=== PATIENT | female | born 1945 | race Caucasian/White ===

== ENCOUNTER 2017-05-17 06:36 | Inpatient (IN) | payer MEDICARE ==
[2017-05-17] VITALS (20 sets, daily range): BP systolic 117–209; BP diastolic 57–93; PULSE 63–100; RESP 14–37; TEMP 93.7–98.8; O2SAT 96–100
[~2017-05-17] VITALS: Ht 157.5 cm; Wt 45.8 kg
[2017-05-17] MEDS ORDERED: MIRT30TA PO (06:41)
[2017-05-17] MEDS ORDERED: HYDR-3133 PO (06:41)
[2017-05-17] MEDS ORDERED: SERT-132 PO (06:41)
[2017-05-17] MEDS ORDERED: PLAQ200T PO (06:41)
[2017-05-17] MEDS ORDERED: COUM5TAB PO (06:43)
[2017-05-17] MEDS ORDERED: ZOLE5P IV (06:43)
[2017-05-17] MEDS ORDERED: ASPI81TA81 (06:43)
[2017-05-17] MEDS ORDERED: MULTTAB24 (06:43)
[2017-05-17] MEDS ORDERED: FERR1TAB52 (06:43)
[2017-05-17] MEDS ORDERED: CHOL1TAB42 (06:43)
[2017-05-17] MEDS ORDERED: NITROGLYCERIN 0.4 MG SL 25 TABS/BTL SL STA (06:45)
[2017-05-17] MEDS ORDERED: ASPIRIN 81 MG CHEW TAB PO STA (06:45)
[2017-05-17] MEDS ORDERED: NITROGLYCERIN-DEXTROSE INJ 250 ML IV SCH (06:45)
[2017-05-17] MEDS ORDERED: SODIUM CHLOR 0.9% 1000 ML INJ 1,000 ML IV ONE (06:45)
[2017-05-17] MEDS ORDERED: HEPARIN-NS/PF INJ 500 ML ONE (06:53)
--- NOTE | 2017-05-17 06:53 | PD ---
HPI Chief Complaint: Chest Pain Time Seen by Provider: 06:44 Travel History International Travel<30 days: No Contact w/Intl Traveler<30days: No Traveled to known affect area: No History of Present Illness HPI The patient is a 71 year old female who presents to the [facility] emergency department with a history of awakening from sound sleep 1 hour prior to arrival with chest pain and shortness of breath. The patient was noted on arrival of ambulance services to have dyspnea with room air saturations of 82%. The patient was noted to have an elevated blood pressure in the 200s systolic. The patient was given one albuterol nebulizer treatment, sublingual nitroglycerin 1, Lasix 40 mg IV. She was placed on CPAP and en route to this facility her O2 saturation came up to 89%. The patient on arrival is unable to communicate due to dyspnea, however she is able to shake her head yes and no and reports that she continues to have shortness of breath on arrival. The patient's other history is obtained from reviewing the electronic medical record and further discussion with the family due to the patient's current medical condition. 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 The patient is status post Vandergrift filter placement. Cardiovascular Problems: Yes Chest Pain: Yes Myocardial Infarction: Yes Past Surgical History Narrative Surgical Patient's past surgical history is significant for a Jae filter placement , right lower extremity stenting 3. Social History Alcohol Use: No Tobacco Use: Yes (one pack per day) Substance Use: No Allergies-Medications (Allergen,Severity, Reaction): Coded Allergies: *MDRO Multi-Drug Resistant Organism (Verified Allergy, Unknown, 05/17/17) MRSA Contrast Media (Verified Allergy, Unknown, 05/17/17) Diflucan (Verified Allergy, Unknown, 05/17/17) Keflex (Verified Allergy, Unknown, 05/17/17) Pravachol (Verified Allergy, Unknown, 05/17/17) Reported Meds & Prescriptions Reported Meds & Active Scripts Active Reported Iron High-Potency (Ferrous Sulfate) 325 Mg Tab Vitamin D-3 (Cholecalciferol) 2,000 Unit Tab Multi For Her (Multiple Vitamins W/ Minerals) 1 Tab Tab Aspir-81 (Aspirin) 81 Mg Tabdr Coumadin (Warfarin) 5 Mg Tab 5 Mg PO DAILY Reclast Inj (Zoledronic Acid) 5 Mg/100 Ml Inj 5 Mg IV Q365D Mirtazapine 30 Mg Tab 30 Mg PO HS Hydroxyzine HCl 25 Mg Tab 25 Mg PO DAILY Sertraline (Sertraline HCl) 50 Mg Tab 50 Mg PO DAILY Plaquenil (Hydroxychloroquine Sulfate) 200 Mg Tab 200 Mg PO DAILY Take with food Review of Systems ROS Limitations: Clinical Condition, Poor Historian Cardiovascular: Positive: Chest Pain or Discomfort, Dyspnea on exertion Respiratory: Positive: Cough, Shortness of Breath Physical Exam Narrative General: The patient is a well-developed cachectic appearing female, short of breath on arrival with accessory muscle use. Head and Neck exam: Head is normocephalic atraumatic. Eyes: Pupils are equal round and reactive to light. Nose: Midline septum with pink mucous membranes Mouth: Dentition unremarkable. Moist mucus membranes. Posterior oropharynx is not erythematous. No tonsillar hypertrophy. Uvula midline. Airway patent. Neck: No palpable lymphadenopathy. No nuchal rigidity. No thyromegaly. Cardiovascular: Tachycardia in the 120s without murmurs, gallops, or rubs. No pulse deficit to the extremities and simultaneous auscultation and palpation of her radial artery. Lungs: Crackles are audible in bilateral lower lung june. The patient has wheezes audible anteriorly bilaterally. The patient has accessory muscle use noted. The patient initially has paroxysmal abdominal breathing noted. Abdomen: Soft, without tenderness to palpation in all 4 quadrants of the abdomen. No guarding, rebound, or rigidity. Normal bowel sounds are audible. No tenderness on palpation of McBurney's point Extremities: No clubbing or cyanosis. The patient has 1+ pitting edema bilateral lower extremities. 2+ pulses in all 4 extremities. The patient on examination has a bandage in place over the left ankle and is noted to have on removal of this an area of chronic ulceration along the medial aspect just above the medial malleolus. The patient additionally is noted to have a wound along the medial aspect of the right thigh. 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 Back: No costovertebral angle tenderness to palpation. Neurologic Exam: The patient is uncooperative with formal neurologic testing due to her dyspnea, however the patient is able to move all extremities with equal strength. The patient has no evidence of facial asymmetry. Skin Exam: No rash noted. The patient's scan is pale appearing on exam. Data Data Last Documented VS Vital Signs Date Time Temp Pulse Resp B/P Pulse Ox O2 Delivery O2 Flow Rate FiO2 05/17/17 07:59 63 20 158/71 100 CPAP 05/17/17 07:38 94.3 05/17/17 06:30 40 Orders Troponin I (05/17/17 06:45) Ckmb (Isoenzyme) Profile (05/17/17 06:45) Complete Blood Count With Diff (05/17/17 06:45) I-Stat Profile (05/17/17 06:45) I-Stat Creatinine (05/17/17 06:45) Calcium (05/17/17 06:45) Magnesium (Mg) (05/17/17 06:45) Prothrombin Time / Inr (Pt) (05/17/17 06:45) Act Partial Throm Time (Ptt) (05/17/17 06:45) B-Type Natriuretic Peptide (05/17/17 06:45) Chest, Single Ap (05/17/17 06:45) Electrocardiogram (05/17/17 06:45) Oxygen Administration (05/17/17 06:45) Iv Access Insert/Monitor (05/17/17 06:45) Oximetry (05/17/17 06:45) Sodium Chlor 0.9% 1000 Ml Inj (Ns 1000 M (05/17/17 06:45) Sodium Chloride 0.9% Flush (Ns Flush) (05/17/17 06:45) Aspirin Chew (Aspirin Chew) (05/17/17 06:45) Nitroglycerin Sl (Nitrostat Sl) (05/17/17 06:45) Nitroglycerin-Dextrose Inj (Nitroglyceri (05/17/17 06:45) Heparin-Ns/Pf Inj (Heparin-Ns/Pf Inj) (05/17/17 06:53) Heparin Inj (Heparin Inj) (05/17/17 06:54) Sodium Chloride 0.9% Flush (Ns Flush) (05/17/17 07:00) Methylprednisolone So Succ Inj (Solumedr (05/17/17 07:00) Albuterol-Ipratropium Neb (Duoneb Neb) (05/17/17 07:00) Type And Screen (05/17/17 06:59) Red Blood Cells (Rbc) (05/17/17 06:59) Blood Product Administration .UPON TRANSFUSION (05/17/17 06:59) Sodium Chlor 0.9% 250 Ml Inj (Ns 250 Ml (05/17/17 07:00) Blood Culture (05/17/17 07:01) Lactic Acid Sepsis Protocol (05/17/17 07:01) Cardiac Catheterization (05/17/17 ) Aztreonam Inj (Azactam Inj) (05/17/17 07:22) Levofloxacin 750 Mg Premix Inj (Levaquin (05/17/17 07:22) Labs Laboratory Tests Test 05/17/17 05/17/17 06:50 07:05 White Blood Count 11.1 TH/MM3 Red Blood Count 2.94 MIL/MM3 Hemoglobin 9.1 GM/DL Bedside Hemoglobin 7.1 G/DL Hematocrit 26.6 % Bedside Hematocrit 21.0 % Mean Corpuscular Volume 90.5 FL Mean Corpuscular Hemoglobin 30.8 PG Mean Corpuscular Hemoglobin 34.0 % Concent Red Cell Distribution Width 14.3 % Platelet Count 473 TH/MM3 Mean Platelet Volume 6.6 FL Neutrophils (%) (Auto) 68.8 % Lymphocytes (%) (Auto) 21.0 % Monocytes (%) (Auto) 6.0 % Eosinophils (%) (Auto) 3.2 % Basophils (%) (Auto) 1.0 % Neutrophils # (Auto) 7.6 TH/MM3 Lymphocytes # (Auto) 2.3 TH/MM3 Monocytes # (Auto) 0.7 TH/MM3 Eosinophils # (Auto) 0.4 TH/MM3 Basophils # (Auto) 0.1 TH/MM3 CBC Comment DIFF FINAL Differential Comment Prothrombin Time 23.9 SEC Prothromb Time International 2.1 RATIO Ratio Activated Partial 44.8 SEC Thromboplast Time Bedside Sodium 135 MMOL/L Bedside Potassium 3.4 MMOL/L Bedside Chloride 103 MMOL/L Bedside Blood Urea Nitrogen 28 MG/DL Bedside Creatinine 1.4 MG/DL Bedside Glucose 227 MG/DL Lactic Acid Level 1.9 mmol/L Calcium Level 8.1 MG/DL Magnesium Level 2.5 MG/DL Total Creatine Kinase 51 U/L Troponin I 0.03 NG/ML B-Type Natriuretic Peptide 708 PG/ML Blood Type AB NEGATIVE MDM Medical Decision Making Medical Screen Exam Complete: Yes Emergency Medical Condition: Yes Medical Record Reviewed: Yes Interpretation(s) Last Impressions Chest X-Ray 05/17/17 0645 Signed Impressions: Service Date/Time: Wednesday, May 17, 2017 06:59 - CONCLUSION: 1. Right lower lobe airspace disease may reflect aspiration or pneumonia in the appropriate clinical setting. 2. Changes of obstructive pulmonary disease. Noah Douglass MD Differential Diagnosis Acute coronary syndrome, versus STEMI, versus new-onset congestive heart failure , versus COPD exacerbation, versus pneumonia, versus symptomatic anemia, versus sepsis Narrative Course During the course of the patients emergency department visit, the patients history, examination, and differential diagnosis were reviewed with the patient. The patient had IV access obtained and blood work sent for analysis. The patient was placed on a monitoring manager with oximetry and blood pressure monitoring. The patient was placed on a monitoring manager with oximetry and blood pressure monitoring. An EKG was done on arrival, respiratory therapy was called immediately to the bedside to place the patient on BiPAP. The patient's initial O2 saturation on CPAP was 88-89%. The patient was placed on BiPAP and her O2 saturations quickly came up to 97-99%. The patient reported feeling improved. An ECG was done which revealed what appeared to be ST segment elevation in lead V2, V3, ST segment depression in V5, V6. A STEMI alert was called. The patient on reevaluation reports that the chest pain has resolved. I -STAT with creatinine was ordered. A chest x-ray was done. The patient was initially provided aspirin 324 mg by mouth 1, nitroglycerin sublingual times one, nitroglycerin drip was started. Heparin was held as the patient is on Coumadin. The patients laboratory studies were reviewed and remarkable for an i-STAT with creatinine that reveals a sodium of 135, potassium 3.4, chloride 103, BUN 28, glucose 227, hemoglobin 7.1, creatinine 1.4. The patient was typed and crossmatched for 4 units of packed red blood cells with 2 units to be placed on hold and 2 units to be administered. Radiology studies were reviewed and remarkable for a chest x-ray that shows a right middle lobe infiltrate, increased haziness bilaterally also suspicious for underlying vascular engorgement. The patient had blood cultures 2 drawn, lactic acid sent for analysis. The patient was started on broad-spectrum antibiotic coverage for suspected sepsis with pulmonary source. The patient was given Azactam and Levaquin. Due to the possibility of aspiration, the patient was also given Flagyl 500 mg IV. The medical center manager, Dr. Lupillo Ramirez reviewed the patient's ECG findings and the patient's history and current symptoms. From reviewing the ECG he felt that the patient had evidence of LV strain and did not require emergent catheterization. The patient's case was checked out to the oncoming emergency physician to disposition based on the conclusion of the patient's workup. I anticipate that the patient will be admitted to the airline manager. Critical Care Narrative Aggregate critical care time was 37 minutes. Time to perform other separately billable procedures was not included in the critical care time. My time did not include minutes spent treating any other patients simultaneously or on activities that did not directly contribute to the patient's treatment. The services I provided to this patient were to treat and/or prevent clinically significant deterioration that could result in: Respiratory failure regarding intubation, versus fluid overload from blood product administration, versus cardiovascular collapse related to sepsis I provided critical care services requiring my management, as noted below: Chart data review, documentation time, medication orders and management, vital sign assessments/reviewing monitor data, ordering and reviewing lab tests, ordering and interpreting/reviewing x-rays and diagnostic studies, care of the patient and discussion of the patient with the admitting physicians. Physician Communication Physician Communication At 6:55 AM I spoke to Dr. Layton. He reports that he is not on for STEMI alerts until after 7 AM for [employer] patients. He reports to me that Dr. Lupillo Ramirez is on-call for STEMI alerts. A call was then placed out to Dr. abad who is on-call for STEMI alerts after 7 AM as it is now after 7 AM. After discussing this further with him, the call suddenly dropped. An attempt was made to call him back and this went to voicemail. A message was left. A call was then placed out to Lupillo Ramirez, the medical center manager on-call for STEMI alerts prior to 7 AM. I discussed the patient's case with him. We reviewed the ECG findings. He explained that the ECG findings were more consistent with LV strain, therefore he did not recommend that the patient go to the catheter lab emergently. Each one of these cardiologists that I spoke to were concerned about the delay in the correct medical center manager being notified of this STEMI alert that was initially called. It was determined that while I was in the room stabilizing the patient's airway and reassessing on BiPAP, the wrong phone number was called by the assembler unit to notify the STEMI alert doctor. Diagnosis Primary Impression: Respiratory distress Additional Impressions: Pneumonia Qualified Code: J18.1 - Pneumonia of right lower lobe due to infectious organism Symptomatic anemia Chest pain Qualified Code: R07.9 - Chest pain, unspecified type Admitting Information Admitting Physician Requests: Admit Stephanie Ramirez MD May 17, 2017 06:53
[2017-05-17] MEDS ORDERED: HEPARIN SODIUM - IV 10,000 UNITS/10 ML VIAL ONE (06:54)
[2017-05-17] MEDS ORDERED: methylPREDNISolone SOD SUCC 125 MG/2 ML VIAL IVP ONE (07:00)
[2017-05-17] MEDS ORDERED: SODIUM CHLORIDE 0.9% FLUSH 10 ML FLUSH IVF PRN (07:00)
[2017-05-17] MEDS ORDERED: SODIUM CHLOR 0.9% 250 ML INJ 250 ML IV ONE (07:00)
[2017-05-17] MEDS: RESP: ALBUTEROL 2.5 MG/IPRATROPIUM 0.5 MG NEB (SCH) INH ×6 (07:16→23:36)
--- NOTE | 2017-05-17 07:21 | RADRPT ---
EXAM DATE/TIME: 05/17/2017 06:59 [facility] COMPARISON: No previous studies available for comparison. INDICATIONS : Stemi alert. MEDICAL HISTORY : Unobtainable SURGICAL HISTORY : Unobtainable ENCOUNTER: Initial ACUITY: 1 day PAIN SCORE: Non-responsive. LOCATION: Bilateral chest FINDINGS: Lungs are hyper aerated with diffuse interstitial prominence, likely chronic. There is mild airspace disease in the right lower lung zone. Cardiac silhouette is borderline in size given degree of expans ion. Old rib fractures are noted bilaterally. CONCLUSION: 1. Right lower lobe airspace disease may reflect aspiration or pneumonia in the appropriate clinical setting. 2. Changes of obstructive pulmonary disease. Noah Douglass MD on May 17, 2017 at 7:17 Board Certified Radiologist. This report was verified electronically.
[2017-05-17] MEDS ORDERED: AZTREONAM INJ 2,000 MG in SODIUM CHLORIDE 0.9% INJ 100 ML IV STA (07:22)
[2017-05-17] MEDS ORDERED: LEVOFLOXACIN 750 MG PREMIX INJ 150 ML IV STA (07:22)
[2017-05-17 07:26] LABS: AUTOMATED NEUTROPHIL # 7.6 TH/MM3 (1.8-7.7); BASOPHIL # 0.1 TH/MM3 (0-0.2); EOSINOPHIL # 0.4 TH/MM3 (0-0.4); EOSINOPHIL % 3.2 % (0.0-4.0); HEMATOCRIT 26.6 % (35.0-46.0); HEMO FLAGS DIFF FINAL; LYMPHOCYTE # 2.3 TH/MM3 (1.0-4.8); MEAN CELL VOLUME 90.5 FL (80.0-100.0); MEAN CORPUSCULAR HEMOGLOBIN 30.8 PG (27.0-34.0); NEUT % 68.8 % (16.0-70.0); PLATELET COUNT 473 TH/MM3 (150-450); RED BLOOD COUNT 2.94 MIL/MM3 (4.00-5.30); RED CELL DISTRIBUTION WIDTH 14.3 % (11.6-17.2); WHITE BLOOD COUNT 11.1 TH/MM3 (4.0-11.0)
[2017-05-17 07:29] LABS: I-STAT POTASSIUM 3.4 MMOL/L (3.5-4.9)
[2017-05-17 07:36] LABS: APTT (PATIENT) 44.8 SEC (24.3-30.1); INTERNATIONAL NORMALIZED RATIO 2.1 RATIO; PROTHROMBIN TIME - PATIENT 23.9 SEC (9.8-11.6)
[2017-05-17 07:46] LABS: MAGNESIUM 2.5 MG/DL (1.5-2.5)
[2017-05-17 08:41] LABS: BLOOD GAS BASE EXCESS -2.6 mmol/L (-2-2); BLOOD GAS CARBOXYHEMOGLOBIN 2.9 % (0-4); BLOOD GAS HCO3 22 mmol/L (22-26); BLOOD GAS METHEMOGLOBIN 0.5 % (0-2); BLOOD GAS O2 HGB SATURATION 96 % (90-100); BLOOD GAS OXYGEN CONTENT 11.6 Vol % (12.0-20.0); BLOOD GAS PCO2 42 mmHg (38-42); BLOOD GAS PO2 121 mmHG (61-120); BLOOD GAS TOTAL HGB 8.5 G/DL (12.0-16.0); TEMP CORR TO 98.6
[2017-05-17 08:42] LABS: CRITICAL VALUE NO; DRAW SITE RT RADIAL; FIO2 40 %; NUMBER OF ARTERIAL PUNCTURES 1; OXYGEN DEVICE VENTILATOR; STAT YES; ULNAR PULSE PRESENT; VENT SETTINGS PEEP5/PS10
[2017-05-17 09:13] LABS: AUTOMATED NEUTROPHIL # 10.4 TH/MM3 (1.8-7.7); BASOPHIL % 0.4 % (0.0-2.0); EOSINOPHIL % 0.3 % (0.0-4.0); HEMO FLAGS DIFF FINAL; LYMPH % 3.8 % (9.0-44.0); LYMPHOCYTE # 0.4 TH/MM3 (1.0-4.8); MEAN CELL VOLUME 89.4 FL (80.0-100.0); MEAN CORPUSCULAR HEMOGLOBIN 31.2 PG (27.0-34.0); MEAN CORPUSCULAR HGB CONC 34.9 % (32.0-36.0); MONO % 5.3 % (0.0-8.0); NEUT % 90.2 % (16.0-70.0); PLATELET COUNT 326 TH/MM3 (150-450); RED BLOOD COUNT 2.57 MIL/MM3 (4.00-5.30); RED CELL DISTRIBUTION WIDTH 14.2 % (11.6-17.2); WHITE BLOOD COUNT 11.5 TH/MM3 (4.0-11.0)
[2017-05-17 09:35] LABS: ANION GAP 11 MEQ/L (5-15); AST (GOT) 22 U/L (15-37); BLOOD UREA NITROGEN 28 MG/DL (7-18); CHLORIDE 100 MEQ/L (98-107); GLOMERULAR FILTRATION RATE 44 ML/MIN (>89); POTASSIUM 3.3 MEQ/L (3.5-5.1); SODIUM (NA) 132 MEQ/L (136-145)
[2017-05-17 09:36] LABS: ALT (GPT) 20 U/L (10-53)
[2017-05-17 09:45] LABS: ALKALINE PHOSPHATASE 91 U/L (45-117); TOTAL BILIRUBIN ADULT 0.1 MG/DL (0.2-1.0)
--- NOTE | 2017-05-17 09:52 | EKG ---
Date Performed: 05/17/2017 Time Performed: 06:38:43 PTAGE: 71 years EKG: POSSIBLE SINUS TACHYCARDIA LEFT AXIS DEVIATION NONSPECIFIC INTRAVENTRICULAR CONDUCTION JAYLON Y LATERAL ST DEPRESSION, CONSIDER ISCHEMIA ABNORMAL ECG NO PREVIOUS TRACING DOCTOR: Severo Thakur Interpretating Date/Time 05/17/2017 09:51:31
[2017-05-17] MEDS ORDERED: POTASSIUM CHLOR 40 MEQ PREMIX 100 ML IV PRN ×2 (10:30)
[2017-05-17] MEDS ORDERED: MAGNESIUM SULFATE INJ 4 GM in SODIUM CHLORIDE 0.9% INJ 92 ML IV PRN (10:30)
[2017-05-17] MEDS ORDERED: CHLORHEXIDINE GLUCONATE 2 % 1 PACK (2 CLOTHS) TOP PRN (10:30)
[2017-05-17] MEDS ORDERED: SENNOSIDES 8.6 MG TAB PO PRN (10:30)
[2017-05-17] MEDS ORDERED: POTASSIUM CHLOR 20 MEQ PREMIX 100 ML IV PRN (10:30)
[2017-05-17] MEDS ORDERED: POTASSIUM PHOSPHATE MONOBASIC 500 MG TAB PO PRN (10:30)
[2017-05-17] MEDS ORDERED: POTASSIUM CHLORIDE 25 MEQ EFFERVESCENT TAB PO PRN (10:30)
[2017-05-17] MEDS ORDERED: POTASSIUM PHOSPHATE INJ 30 MMOL in SODIUM CHLOR 0.9% 250 ML INJ 250 ML IV PRN (10:30)
[2017-05-17] MEDS ORDERED: MAGNESIUM OXIDE 400 MG TAB PO PRN (10:30)
[2017-05-17] MEDS ORDERED: POTASSIUM PHOSPHATE MONOBASIC 500 MG TAB PO/TUBE PRN (10:30)
[2017-05-17] MEDS ORDERED: MAGNESIUM HYDROXIDE SUSP 30 ML CUP PO PRN (10:30)
[2017-05-17] MEDS ORDERED: BISACODYL 10 MG SUPP RECTAL PRN (10:30)
[2017-05-17] MEDS ORDERED: LACTULOSE SYRUP 20 GM/30 ML CUP PO PRN (10:30)
[2017-05-17] MEDS ORDERED: MISCELLANEOUS NURSING INFORMATION XX SCH (10:30)
[2017-05-17] MEDS ORDERED: MAGNESIUM SULFATE INJ 2 GM in SODIUM CHLORIDE 0.9% INJ 96 ML IV PRN (10:30)
[2017-05-17] MEDS ORDERED: RESP: ALBUTEROL 2.5 MG/IPRATROPIUM 0.5 MG NEB (PRN) INH (10:30)
[2017-05-17] MEDS ORDERED: SODIUM PHOSPHATE INJ 30 MMOL in SODIUM CHLOR 0.9% 250 ML INJ 240 ML IV PRN (10:30)
[2017-05-17] MEDS: PANTOPRAZOLE SODIUM 40 MG VIAL IV SCH (10:43)
[2017-05-17] MEDS ORDERED: DEXTROSE 50% IN WATER 50 ML VIAL(D50) IV PRN (10:45)
[2017-05-17] MEDS ORDERED: GLUCAGON 1 MG/ML VIAL OTHER PRN (10:45)
[2017-05-17] MEDS ORDERED: HEPARIN SODIUM - SQ 10,000 UNITS/ML VIAL SQ SCH (11:00)
[2017-05-17] MEDS ORDERED: BUMETANIDE INJ 1 MG/4 ML VIAL IV PUSH ONE (11:30)
--- NOTE | 2017-05-17 11:48 | MB ---
cc: ELKE QUINONEZ MD DATE OF CONSULTATION: 05/17/2017 HISTORY OF PRESENT ILLNESS This is a 71-year-old woman who is admitted to the hospital with acute shortness of breath. She woke up approximately 4 o'clock this morning with some nausea and rather severe shortness of breath. She came to the emergency department. She was placed on a CPAP monitor and given albuterol nebulizer treatment as well as a dose of Lasix and sublingual nitroglycerin. Breathing is much better now. Apparently she was not able to communicate very well on her arrival to the hospital. She has noted a cough with yellow phlegm over the last 2-3 weeks but no fever or chills have been present. She denies any chest pain. No orthopnea or ankle edema. Prior PND has been present. She notes that four or five years ago a slight heart attack was detected by cardiac monitoring but no catheterization or other procedures were done. She does have a history of multiple DVTs and is chronically anticoagulated on Coumadin as well as with a Sarah Ann filter. Her INR was therapeutic at 2.1 on admission. PAST MEDICAL HISTORY The past medical history is otherwise significant for chronic anemia. We do note that on admission hemoglobin was quite low at initially 9.1, but at point of care was 7.1. Subsequently a unit of packed red blood cells is being administered. LABORATORY DATA Pertinent laboratory examination demonstrates a troponin of 0.03 on admission, rising to 0.43 two hours later. Her initial BNP is 708. Chest x-ray reveals a right lower lobe infiltrate with no gross evidence for heart failure. EKG Electrocardiogram demonstrates sinus tachycardia with ST saline with nonspecific ST-segment depression laterally. No ST-segment elevation is present. SOCIAL HISTORY The social history is significant for smoking a pack of cigarettes per day. She is a non-drinker and does not use recreational drugs. ALLERGIES ALLERGIES ARE MULTIPLE TO CONTRAST MEDIA, DIFLUCAN, KEFLEX AND PRAVACHOL. PHYSICAL EXAMINATION GENERAL: On physical exam she is awake and alert. She appears in no acute distress at the present time. VITAL SIGNS: Blood pressure 120/60, pulse 80 and regular. NECK: There is no neck vein distension. LUNGS: Her lungs demonstrate crackles in the right base. No wheezes or rhonchi present. CARDIOVASCULAR: Regular rate and rhythm with no murmur or gallop. ABDOMEN: Soft. There is no tenderness. EXTREMITIES: No edema. ASSESSMENT AND RECOMMENDATIONS The patient has evidence to suggest right lower lobe pneumonia with possible exacerbation of her COPD. There is no evidence for heart failure at this point in time. Certainly her troponin elevation is of concern and I have ordered a follow-up troponin and electrocardiogram for tomorrow, but at this point in time does not appear to be an ischemic event and troponin is likely demand mediated. An echocardiogram has also been ordered and we await with interest the outcome of that. In the time certainly agree with her pulmonary toilet with albuterol and antibiotics. She will need to continue her warfarin in view of her chronic DVTs. MD PUSHPA Thompson/YESSICA /11:27 AM /11:36 AM
[2017-05-17] MEDS: INSULIN NovoLIN REGULAR SUPPLEMENTAL SCALE SQ SCH ×2 (12:00→18:00)
--- NOTE | 2017-05-17 12:22 | EKG ---
Date Performed: 05/17/2017 Time Performed: 06:51:13 PTAGE: 71 years EKG: Sinus rhythm LEFT AXIS DEVIATION NONSPECIFIC INTRAVENTRICULAR CONDUCTION DELAY LATERAL ST/T CHANGES, CONSIDER ISC HEMIA ABNORMAL ECG NO PREVIOUS TRACING DOCTOR: Severo Thakur Interpretating Date/Time 05/17/2017 12:21:37
--- NOTE | 2017-05-17 12:26 | MH ---
cc: SADE WILL M.D. DATE OF ADMISSION 05/17/2017 DATE OF 1945 HISTORY The patient is 71-year-old female with a past medical history of DVT of her right lower extremity on Coumadin, questionable COPD, coronary artery disease, peripheral vascular disease, hypertension, active smoker who presented to [facility] ED with shortness of breath associated with chest pain. The patient had O2 saturation of 82% on room air and systolic blood pressure in the 200s. She was given albuterol treatment along with sublingual nitroglycerin x1, Lasix 40 mg IV push x1 and placed on C-PAP en route to the ED. The patient was given Solu-Medrol 125 mg IV push and initially placed on a nitroglycerin drip. However, now it is turned off. In the ER, she was chest pain-free and a STEMI alert was called and Dr. Ramirez was notified. However, after review, the patient was not a candidate for any cardiac catheterization. Her EKG showed sinus rhythm with a rate of 99 beats per minute and marked left axis deviation with left bundle branch block. The patient was placed on BiPap 10/5 with 40% FIO2 and her ABG showed a pH of 7.35, CO2 42, pAO2 121, bicarb 22 and saturation 96%. Her laboratory data significant for elevated BNP at 708 and troponin increased from 0.03-0.43. Lactic acid level measured at 1.9 and an INR of 2.1 with PT of 44.8. Chest x-ray in the ER showed right lower lobe airspace disease which may reflect aspiration pneumonia. She was given a Aztreonam in the ER. Of note, the patient is ALLERGIC TO KEFLEX. On her initial presentation, she was hypothermic with a temperature of 94.9, however, her last temperature is 98.8. Her WBC was noted to be 11.5. She seems more comfortable and remains on BiPap. The patient denies any emesis, abdominal pain or any constitutional symptoms. PAST MEDICAL HISTORY Significant for likely: 1. COPD 2. Hypertension 3. Coronary artery disease with previous UT in the past 4. History of multiple DVTs on Coumadin 5. Peripheral vascular disease 6. Arthritis 7. Chronic anemia PAST SURGICAL HISTORY 1. Previous right lower extremity stenting x3 2. Previous IVC filter placement. ALLERGIES PRAVACHOL, KEFLEX, DIFLUCAN, CONTRAST MEDIA. MEDICATIONS Reported medications include: 1. Iron 2. Vitamin D3 3. Aspirin 4. Coumadin 5. Sertraline 6. Plaquenil FAMILY HISTORY Noncontributory SOCIAL HISTORY The patient is an active smoker where she smokes one pack per day for many years, nondrinker. REVIEW OF SYSTEMS As per HPI. Rest of the system of systems is unremarkable. PHYSICAL EXAM This is a 71-year-old female lying in bed on BiPap in mild respiratory distress. VITAL SIGNS: Current temperature 98.8. Pulse of 67, blood pressure 112/56, saturation 99%. HEENT: Atraumatic, normocephalic. Pupil equal, round and reactive to light and accommodation. Extraocular muscles intact. Conjunctivae pink. Nonicteric sclerae. Oral mucosa within normal. NECK: Supple. No JVD, adenopathy or thyromegaly. Trachea midline. CARDIOVASCULAR: Regular rate and rhythm. Normal S1-S2. No murmurs, rubs or gallops noted. PULMONARY: Bilateral equal entry with a few coarse breath sounds. ABDOMEN: Soft and nontender, no distension. Positive bowel sounds. EXTREMITIES: No cyanosis, clubbing or edema. NEUROLOGIC: No focal sensory deficit. Awake and alert. LABORATORY DATA WBC 11.5, hemoglobin 8, hematocrit 23, platelet count of 326. Sodium 132, potassium 3.3, chloride 100, CO2 21, BUN 28, creatinine 1.21, glucose of 98, lactic acid 1.9, troponin 0.03 and 0.43 on the second set. ABG showed a pH of 7.35, CO2 42, pAO2 121, bicarb 22, sats 96%, INR 2.1, PT 23.9, PTT 44.8. RADIOGRAPHIC STUDIES Chest x-ray showed right lower lobe airspace disease and changes of obstructive pulmonary disease. IMPRESSION 1. Acute hypoxemic respiratory failure. 2. COPD exacerbation 3. Right lower lobe pneumonia. 4. Uncontrolled hypertension 5. Elevated troponin could be related to respiratory distress, However cannot exclude coronary artery disease. 6. A history of CAD. 7. History of DVT on Coumadin. 8. Peripheral vascular disease 9. Anemia of chronic disease RECOMMENDATIONS 1. Monitor neuro status closely and avoid any sedatives. 2. Continue with oxygen, maintain sats above 92%. 3. Bronchodilators in the form of DuoNeb q4+q2 p.r.n. for shortness of breath. In addition, we will start IV steroids Solu-Medrol 40 mg IV q8. 4. Continue with noninvasive positive pressure ventilation for respiratory distress. 5. Monitor heart rate and blood pressure closely and maintain MAP above 65 mmHg. 6. Monitor troponins and will obtain 2-D echo to evaluate LV function. The patient was given Lasix 40 mg IV en route to the ED. Dr. Ramirez from cardiology service was notified and aware of the patient. 7. Monitor renal function, I's and O's and electrolyte replacement per protocol. The patient will need potassium replacement today. 8. Start p.o. heart healthy diet once respiratory status improves and place on Protonix 40 mg IV daily for GI prophylaxis. 9. Continue with antibiotics in the form of Aztreonam and azithromycin and monitor for signs of infection which include fever and WBC. We will check sputum culture Strep pneumoniae and Legionella urinary antigen. Two sets of blood cultures performed in the ED. 10. Place on sliding scale insulin with Accu-Chek with as the patient will be on IV steroids. 11. Monitor CBC and coag's. We will consult pharmacy service for Coumadin dosing and management. 12. GI prophylaxis with Protonix 4 mg daily and DVT prophylaxis with SCD's. In addition, the patient is on Coumadin with therapeutic INR at 2.1. 13. Further recommendations will be based on hospital course. MD SAVANA Alford/JUNITO /11:42 AM /12:12 PM MTDJohn
[2017-05-17] MEDS: AZTREONAM INJ 1,000 MG in SODIUM CHLORIDE 0.9% INJ 100 ML IV SCH ×2 (12:30→20:09)
[2017-05-17] MEDS: DOCUSATE SODIUM 50 MG/SENNA 8.6 MG TAB PO SCH ×2 (13:14→20:09)
[2017-05-17] MEDS: POTASSIUM CHLOR 20 MEQ PREMIX 100 ML IV PRN ×2 (13:22→15:37)
[2017-05-17 14:34] LABS: HEMATOCRIT 32.7 % (35.0-46.0); REVIEW FLAG FINAL
[2017-05-17] MEDS: methylPREDNISolone SOD SUCC 40 MG/1 ML VIAL IV PUSH SCH ×2 (15:37→20:09)
[2017-05-17] MEDS: AZITHROMYCIN INJ 500 MG in SODIUM CHLOR 0.9% 250 ML INJ 250 ML IV SCH (15:38)
[2017-05-17] MEDS ORDERED: WARFARIN SOD 5 MG TAB PO SCH (16:00)
--- NOTE | 2017-05-17 19:19 | ECHRPT ---
Indication: Shortness of breath CONCLUSIONS Normal left ventricular size. Wall thickness is normal. The left ventricular systolic function is mildly reduced with an estimated ejection fraction in the range of 45- 50%. No regional wall motion abnormalities are present. The right ventriclar size is upper limits of normal. The left atrial size is [id number] dilated. The right atrial size is gxvq-[id number] dilated. Mild mitral valve regurgitation. Mild mitral annular calcification. Aortic valve sclerosis is present. Mild aortic valve regurgitation. No aortic valve stenosis. There is mild tricuspid regurgitation. There is estimated moderate pulmonary hypertension present (range 60-70 mmHg). BP: 117 / 57 HR: 71 Rhythm: Sinus MEASUREMENTS (Male / Female) Normal Values Technical Quality:Fair 2D ECHO LV Diastolic Diameter PLAX 5.2 cm 4.2 - 5.9 / 3.9 - 5.3 cm LV Systolic Diameter PLAX 4.2 cm IVS Diastolic Thickness 0.7 cm 0.6 - 1.0 / 0.6 - 0.9 cm LVPW Diastolic Thickness 0.7 cm 0.6 - 1.0 / 0.6 - 0.9 cm LV Relative Wall Thickness 0.3 LVOT Diameter 2.0 cm Aortic Root Diameter 2.8 cm LA Systolic Diameter LX 3.5 cm 3.0 - 4.0 / 2.7 - 3.8 cm M-MODE AV Cusp Separation MM 1.9 cm DOPPLER AV Peak Velocity 167.0 cm/s AV Peak Gradient 11.2 mmHg AV Mean Gradient 5.0 mmHg AV Velocity Time Integral 33.1 cm AI Peak Velocity 415.0 cm/s AI Peak Gradient 68.9 mmHg AI Pressure Half Time 304.0 ms LVOT Peak Velocity 90.2 cm/s LVOT Peak Gradient 3.3 mmHg LVOT Velocity Time Integral 16.7 cm LVOT Cardiac Index 2810.8 cm/minm AV Area Cont Eq vti 1.6 cm AV Area Cont Eq pk 1.7 cm Mitral E Point Velocity 87.4 cm/s Mitral A Point Velocity 83.9 cm/s Mitral E to A Ratio 1.0 LV E' Septal Velocity 6.3 cm/s Mitral E to LV E' Septal Ratio 13.8 TR Peak Velocity 379.0 cm/s TR Peak Gradient 57.5 mmHg PV Peak Velocity 79.0 cm/s PV Peak Gradient 2.5 mmHg FINDINGS LEFT VENTRICLE Normal left ventricular size. Wall thickness is normal. The left ventricular systolic function is mildly reduced with an estimated ejection fraction in the range of 45- 50%. No regional wall motion abnormalities are present. RIGHT VENTRICLE The right ventriclar size is upper limits of normal. LEFT ATRIUM The left atrial size is [id number] dilated. RIGHT ATRIUM The right atrial size is mvio-mb-jgzyoakmbn dilated. ATRIAL SEPTUM The interatrial septum not well visualized. AORTA The aortic root and proximal ascending aorta are normal in size on limited imaging. MITRAL VALVE Structurally normal mitral valve. Mild mitral valve regurgitation. Mild mitral annular calcification. AORTIC VALVE Aortic valve sclerosis is present. Mild aortic valve regurgitation. No aortic valve stenosis. TRICUSPID VALVE Structurally normal tricuspid valve. There is mild tricuspid regurgitation. There is estimated moderate pulmonary hypertension present (range 60-70 mmHg). VESSELS The inferior vena cava is normal in size. There is greater than 50% respiratory change in dimension of the inferior vena cava (normal). PERICARDIUM No pericardial effusion. Aretha Gonzalez MD, FACC (Electronically Signed) Final Date:17 May 2017 19:18
[2017-05-18] VITALS (31 sets, daily range): BP systolic 126–196; BP diastolic 58–84; PULSE 64–103; RESP 19–50; TEMP 96.7–98.6; O2SAT 97–100
[2017-05-18] MEDS: MIRTAZAPINE 15 MG TAB PO SCH ×2 (01:06→19:45)
[2017-05-18] MEDS: CHLORHEXIDINE GLUCONATE 2 % 1 PACK (2 CLOTHS) TOP SCH (04:00)
[2017-05-18] MEDS: RESP: ALBUTEROL 2.5 MG/IPRATROPIUM 0.5 MG NEB (SCH) INH ×6 (04:00→23:45)
[2017-05-18] MEDS: AZTREONAM INJ 1,000 MG in SODIUM CHLORIDE 0.9% INJ 100 ML IV SCH ×3 (04:43→19:46)
[2017-05-18] MEDS: methylPREDNISolone SOD SUCC 40 MG/1 ML VIAL IV PUSH SCH ×3 (04:43→22:40)
[2017-05-18 04:54] LABS: AUTOMATED NEUTROPHIL # 4.8 TH/MM3 (1.8-7.7); BASOPHIL % 0.5 % (0.0-2.0); HEMATOCRIT 29.8 % (35.0-46.0); HEMO FLAGS DIFF FINAL; LYMPH % 9.3 % (9.0-44.0); LYMPHOCYTE # 0.5 TH/MM3 (1.0-4.8); MEAN CELL VOLUME 87.5 FL (80.0-100.0); MEAN CORPUSCULAR HEMOGLOBIN 30.2 PG (27.0-34.0); MEAN CORPUSCULAR HGB CONC 34.5 % (32.0-36.0); MONO % 3.6 % (0.0-8.0); NEUT % 86.6 % (16.0-70.0); PLATELET COUNT 349 TH/MM3 (150-450); RED BLOOD COUNT 3.41 MIL/MM3 (4.00-5.30); RED CELL DISTRIBUTION WIDTH 15.4 % (11.6-17.2); WHITE BLOOD COUNT 5.6 TH/MM3 (4.0-11.0)
[2017-05-18 05:03] LABS: INTERNATIONAL NORMALIZED RATIO 2.7 RATIO
[2017-05-18 05:08] LABS: BICARBONATE 23.2 MEQ/L (21.0-32.0); MAGNESIUM 2.2 MG/DL (1.5-2.5); POTASSIUM 3.6 MEQ/L (3.5-5.1)
[2017-05-18] MEDS: INSULIN NovoLIN REGULAR SUPPLEMENTAL SCALE SQ SCH ×4 (06:00→18:00)
[2017-05-18] MEDS ORDERED: hydrALAZINE HCL 20 MG/ML VIAL ONE ×2 (06:17→06:23)
--- NOTE | 2017-05-18 07:39 | PD.CARD.PN ---
Subjective Subjective Remarks No chest pain or dyspnea. Off O2 with good O2 sats Objective Vital Signs / I&O Vital Signs Date Time Temp Pulse Resp B/P Pulse Ox O2 Delivery O2 Flow Rate FiO2 05/18/17 06:00 78 05/18/17 04:00 84 05/18/17 04:00 96.7 84 24 196/84 98 05/18/17 02:00 77 05/18/17 00:00 97.8 82 24 169/77 100 05/18/17 00:00 82 05/17/17 22:00 77 05/17/17 20:04 97 21 05/17/17 20:00 98.0 85 37 98 05/17/17 20:00 85 05/17/17 18:00 76 05/17/17 16:00 98.1 79 27 148/68 96 05/17/17 16:00 73 05/17/17 14:00 80 05/17/17 12:00 77 05/17/17 12:00 97.8 77 19 161/70 99 05/17/17 11:19 96 Nasal Cannula 3.00 05/17/17 10:33 100 40 05/17/17 10:15 98.8 05/17/17 10:15 98.8 71 18 117/57 100 BiPAP 05/17/17 09:39 98.2 67 20 122/59 100 CPAP 05/17/17 09:34 98.1 67 20 122/57 99 CPAP 05/17/17 08:33 66 16 123/58 99 BiPAP 40 05/17/17 08:14 95.2 64 14 156/67 100 CPAP 05/17/17 07:59 63 20 158/71 100 CPAP 05/17/17 07:38 94.3 70 16 158/75 100 CPAP I/O 05/17/17 05/17/17 05/17/17 05/18/17 05/18/17 05/18/17 07:00 15:00 23:00 07:00 15:00 23:00 Intake Total 685 ml 778 ml 360 ml Output Total 650 ml 600 ml 700 ml Balance 35 ml 178 ml -340 ml Intake Oral 500 ml 120 ml 120 ml IV Total 185 ml 658 ml 240 ml Output Urine Total 650 ml 600 ml 700 ml Physical Exam Lungs clear RRR Laboratory Laboratory Tests Test 6/21/05/17/17 05/17/17 05/17/17 08:28 08:35 11:20 14:00 Blood Gas Puncture Site RT RADIAL Blood Gas Patient Temperature 98.6 Blood Gas HCO3 22 mmol/L Blood Gas Base Excess -2.6 mmol/L Blood Gas Oxygen Saturation 96 % Arterial Blood pH 7.35 Arterial Blood Partial 42 mmHg Pressure CO2 Arterial Blood Partial 121 mmHG Pressure O2 Arterial Blood Oxygen Content 11.6 Vol % Arterial Blood 2.9 % Carboxyhemoglobin Arterial Blood Methemoglobin 0.5 % Blood Gas Hemoglobin 8.5 G/DL Oxygen Delivery Device VENTILATOR Blood Gas Ventilator Setting PEEP5/PS10 Blood Gas Inspired Oxygen 40 % White Blood Count 11.5 TH/MM3 Red Blood Count 2.57 MIL/MM3 Hemoglobin 8.0 GM/DL Hematocrit 23.0 % Mean Corpuscular Volume 89.4 FL Mean Corpuscular Hemoglobin 31.2 PG Mean Corpuscular Hemoglobin 34.9 % Concent Red Cell Distribution Width 14.2 % Platelet Count 326 TH/MM3 Mean Platelet Volume 6.5 FL Neutrophils (%) (Auto) 90.2 % Lymphocytes (%) (Auto) 3.8 % Monocytes (%) (Auto) 5.3 % Eosinophils (%) (Auto) 0.3 % Basophils (%) (Auto) 0.4 % Neutrophils # (Auto) 10.4 TH/MM3 Lymphocytes # (Auto) 0.4 TH/MM3 Monocytes # (Auto) 0.6 TH/MM3 Eosinophils # (Auto) 0.0 TH/MM3 Basophils # (Auto) 0.0 TH/MM3 CBC Comment DIFF FINAL Differential Comment Sodium Level 132 MEQ/L Potassium Level 3.3 MEQ/L Chloride Level 100 MEQ/L Carbon Dioxide Level 21.0 MEQ/L Anion Gap 11 MEQ/L Blood Urea Nitrogen 28 MG/DL Creatinine 1.21 MG/DL Estimat Glomerular Filtration 44 ML/MIN Rate Random Glucose 98 MG/DL Calcium Level 7.9 MG/DL Phosphorus Level 4.7 MG/DL Total Bilirubin 0.1 MG/DL Aspartate Amino Transf 22 U/L (AST/SGOT) Alanine Aminotransferase 20 U/L (ALT/SGPT) Alkaline Phosphatase 91 U/L Troponin I 0.43 NG/ML 1.05 NG/ML Total Protein 6.0 GM/DL Albumin 2.2 GM/DL Thyroid Stimulating Hormone 2.400 uIU/ML 3rd Gen Nasal Screen MRSA (PCR) MRSA NOT DETECTED Test 6/21/17 6/21/17 6/22/17 14:07 20:14 04:27 Hemoglobin 11.1 GM/DL 10.3 GM/DL Hematocrit 32.7 % 29.8 % Troponin I 1.22 NG/ML 0.95 NG/ML White Blood Count 5.6 TH/MM3 Red Blood Count 3.41 MIL/MM3 Mean Corpuscular Volume 87.5 FL Mean Corpuscular Hemoglobin 30.2 PG Mean Corpuscular Hemoglobin 34.5 % Concent Red Cell Distribution Width 15.4 % Platelet Count 349 TH/MM3 Mean Platelet Volume 6.7 FL Neutrophils (%) (Auto) 86.6 % Lymphocytes (%) (Auto) 9.3 % Monocytes (%) (Auto) 3.6 % Eosinophils (%) (Auto) 0.0 % Basophils (%) (Auto) 0.5 % Neutrophils # (Auto) 4.8 TH/MM3 Lymphocytes # (Auto) 0.5 TH/MM3 Monocytes # (Auto) 0.2 TH/MM3 Eosinophils # (Auto) 0.0 TH/MM3 Basophils # (Auto) 0.0 TH/MM3 CBC Comment DIFF FINAL Differential Comment Prothrombin Time 31.0 SEC Prothromb Time International 2.7 RATIO Ratio Sodium Level 139 MEQ/L Potassium Level 3.6 MEQ/L Chloride Level 104 MEQ/L Carbon Dioxide Level 23.2 MEQ/L Anion Gap 12 MEQ/L Blood Urea Nitrogen 34 MG/DL Creatinine 1.46 MG/DL Estimat Glomerular Filtration 35 ML/MIN Rate Random Glucose 132 MG/DL Calcium Level 8.1 MG/DL Phosphorus Level 4.2 MG/DL Magnesium Level 2.2 MG/DL Assessment and Plan Assessment and Plan Troponin elevated to 1.2 Echo shows mld decrease in EF to 40-45%. Will give Vitamin K today administer fluids to improve creatinine. Consider cath tomorrow Chepe Moody MD May 18, 2017 07:39
[2017-05-18] MEDS: SODIUM CHLOR 0.9% 1000 ML INJ 1,000 ML IV SCH ×2 (07:45→19:40)
[2017-05-18] MEDS ORDERED: PHYTONADIONE 5 MG TAB PO ONE (07:45)
--- NOTE | 2017-05-18 07:48 | HHI.CCPN ---
Subjective Remarks/Hospital Course The patient is 71-year-old female with a past medical history of DVT of her right lower extremity on Coumadin, questionable COPD, coronary artery disease, peripheral vascular disease, hypertension, active smoker who presented to [facility] ED with shortness of breath associated with chest pain. The patient had O2 saturation of 82% on room air and systolic blood pressure in the 200s. She was given albuterol treatment along with sublingual nitroglycerin x1, Lasix 40 mg IV push x1 and placed on C-PAP en route to the ED. The patient was given Solu-Medrol 125 mg IV push and initially placed on a nitroglycerin drip. However, now it is turned off. In the ER, she was chest pain-free and a STEMI alert was called and Dr. Ramirez was notified. However, after review, the patient was not a candidate for any cardiac catheterization. Her EKG showed sinus rhythm with a rate of 99 beats per minute and marked left axis deviation with left bundle branch block. The patient was placed on BiPap 10/5 with 40% FIO2 and her ABG showed a pH of 7.35, CO2 42, pAO2 121, bicarb 22 and saturation 96%. Her laboratory data significant for elevated BNP at 708 and troponin increased from 0.03-0.43. Lactic acid level measured at 1.9 and an INR of 2.1 with PT of 44.8. Chest x-ray in the ER showed right lower lobe airspace disease which may reflect aspiration pneumonia. She was given a Aztreonam in the ER. Of note, the patient is ALLERGIC TO KEFLEX. On her initial presentation, she was hypothermic with a temperature of 94.9, however, her last temperature is 98.8. Her WBC was noted to be 11.5. She seems more comfortable and remains on BiPap. The patient denies any emesis, abdominal pain or any constitutional symptoms. 05/18 Patient is feeling better now off oxygen and is on room air. Trop. is trending down. Seen by cards and for possible cardiac cath tomorrow. Objective Vital Signs Date Time Temp Pulse Resp B/P Pulse Ox O2 Delivery O2 Flow Rate FiO2 05/18/17 06:00 78 05/18/17 04:00 96.7 24 196/84 98 05/17/17 20:04 21 6/21/17 11:19 Nasal Cannula 3.00 Intake and Output 05/17/17 05/17/17 05/18/17 08:00 16:00 00:00 Intake Total 685 ml 778 ml Output Total 650 ml 600 ml Balance 35 ml 178 ml Result Diagram: 05/18/17 0427 05/18/17 0427 Other Results Laboratory Tests Test 05/17/17 05/17/17 05/17/17 05/17/17 08:28 08:35 11:20 14:00 Blood Gas Puncture Site RT RADIAL Blood Gas Patient Temperature 98.6 Blood Gas HCO3 22 mmol/L Blood Gas Base Excess -2.6 mmol/L Blood Gas Oxygen Saturation 96 % Arterial Blood pH 7.35 Arterial Blood Partial 42 mmHg Pressure CO2 Arterial Blood Partial 121 mmHG Pressure O2 Arterial Blood Oxygen Content 11.6 Vol % Arterial Blood 2.9 % Carboxyhemoglobin Arterial Blood Methemoglobin 0.5 % Blood Gas Hemoglobin 8.5 G/DL Oxygen Delivery Device VENTILATOR Blood Gas Ventilator Setting PEEP5/PS10 Blood Gas Inspired Oxygen 40 % White Blood Count 11.5 TH/MM3 Red Blood Count 2.57 MIL/MM3 Hemoglobin 8.0 GM/DL Hematocrit 23.0 % Mean Corpuscular Volume 89.4 FL Mean Corpuscular Hemoglobin 31.2 PG Mean Corpuscular Hemoglobin 34.9 % Concent Red Cell Distribution Width 14.2 % Platelet Count 326 TH/MM3 Mean Platelet Volume 6.5 FL Neutrophils (%) (Auto) 90.2 % Lymphocytes (%) (Auto) 3.8 % Monocytes (%) (Auto) 5.3 % Eosinophils (%) (Auto) 0.3 % Basophils (%) (Auto) 0.4 % Neutrophils # (Auto) 10.4 TH/MM3 Lymphocytes # (Auto) 0.4 TH/MM3 Monocytes # (Auto) 0.6 TH/MM3 Eosinophils # (Auto) 0.0 TH/MM3 Basophils # (Auto) 0.0 TH/MM3 CBC Comment DIFF FINAL Differential Comment Sodium Level 132 MEQ/L Potassium Level 3.3 MEQ/L Chloride Level 100 MEQ/L Carbon Dioxide Level 21.0 MEQ/L Anion Gap 11 MEQ/L Blood Urea Nitrogen 28 MG/DL Creatinine 1.21 MG/DL Estimat Glomerular Filtration 44 ML/MIN Rate Random Glucose 98 MG/DL Calcium Level 7.9 MG/DL Phosphorus Level 4.7 MG/DL Total Bilirubin 0.1 MG/DL Aspartate Amino Transf 22 U/L (AST/SGOT) Alanine Aminotransferase 20 U/L (ALT/SGPT) Alkaline Phosphatase 91 U/L Troponin I 0.43 NG/ML 1.05 NG/ML Total Protein 6.0 GM/DL Albumin 2.2 GM/DL Thyroid Stimulating Hormone 2.400 uIU/ML 3rd Gen Nasal Screen MRSA (PCR) MRSA NOT DETECTED Test 05/17/17 05/17/17 05/18/17 14:07 20:14 04:27 Hemoglobin 11.1 GM/DL 10.3 GM/DL Hematocrit 32.7 % 29.8 % Troponin I 1.22 NG/ML 0.95 NG/ML White Blood Count 5.6 TH/MM3 Red Blood Count 3.41 MIL/MM3 Mean Corpuscular Volume 87.5 FL Mean Corpuscular Hemoglobin 30.2 PG Mean Corpuscular Hemoglobin 34.5 % Concent Red Cell Distribution Width 15.4 % Platelet Count 349 TH/MM3 Mean Platelet Volume 6.7 FL Neutrophils (%) (Auto) 86.6 % Lymphocytes (%) (Auto) 9.3 % Monocytes (%) (Auto) 3.6 % Eosinophils (%) (Auto) 0.0 % Basophils (%) (Auto) 0.5 % Neutrophils # (Auto) 4.8 TH/MM3 Lymphocytes # (Auto) 0.5 TH/MM3 Monocytes # (Auto) 0.2 TH/MM3 Eosinophils # (Auto) 0.0 TH/MM3 Basophils # (Auto) 0.0 TH/MM3 CBC Comment DIFF FINAL Differential Comment Prothrombin Time 31.0 SEC Prothromb Time International 2.7 RATIO Ratio Sodium Level 139 MEQ/L Potassium Level 3.6 MEQ/L Chloride Level 104 MEQ/L Carbon Dioxide Level 23.2 MEQ/L Anion Gap 12 MEQ/L Blood Urea Nitrogen 34 MG/DL Creatinine 1.46 MG/DL Estimat Glomerular Filtration 35 ML/MIN Rate Random Glucose 132 MG/DL Calcium Level 8.1 MG/DL Phosphorus Level 4.2 MG/DL Magnesium Level 2.2 MG/DL Imaging Last Impressions Lower Extremity Ultrasound 05/18/17 0000 Signed Impressions: Service Date/Time: April 08:49 - CONCLUSION: 1. Occlusive and nonocclusive deep venous thrombosis in the right superficial femoral vein and right popliteal vein. Negative left lower extremity. Manjit Layton MD Chest X-Ray 05/18/17 0000 Signed Impressions: Service Date/Time: , May 18, 2017 08:19 - CONCLUSION: 1. Slight improvement in bilateral airspace disease and edema since May 17. Small effusions remain. Borderline cardiomegaly. Manjit Layton MD Objective Remarks GENERAL: Patient is 71 yo lying in bed in no resp distress. SKIN: Warm and dry. HEAD: Normocephalic. EYES: No scleral icterus. No injection or drainage. NECK: Supple, trachea midline. No JVD or lymphadenopathy. CARDIOVASCULAR: Regular rate and rhythm without murmurs, gallops, or rubs. RESPIRATORY: Breath sounds equal bilaterally. No accessory muscle use. GASTROINTESTINAL: Abdomen soft, non-tender, nondistended. MUSCULOSKELETAL: No cyanosis, or edema. Neuro: Awake and alert A/P Assessment and Plan 1. Resp Insuff- improved 2. COPD exacerbation 3. Right lower lobe pneumonia. 4. Hypertension 5. Elevated troponin could be related to respiratory distress, However cannot exclude CAD 6. History of CAD. 7. History of DVT on Coumadin. 8. Peripheral vascular disease 9. Anemia of chronic disease Plan Neuro: Monitor neuro status closely and avoid any sedatives. Plan: oxygen PRN maintain sats above 92%. Bronchodilators , Solu-Medrol 40 mg IV q8. Check CXR NIPPV PRN for respiratory distress. CV: Place on Lopressor 50mg Q12. Monitor HR and BP and maintain MAP > 65 mmHg. Echo showed EF 45-50%, no RWMA, mod pulm HTN PAP 60-70 mmHg Cards- Dr. Moody. For possible cardiac cath tomorrow. On ASA 81mg daily : Monitor renal function, I's and O's and electrolyte replacement per protocol. Placed on NS@84ml/hr GI: on Protonix 40 mg IV daily for GI prophylaxis. On PO diet ID: Continue with abx( Aztreonam and azithromycin)monitor for signs of infection (fever and WBC) check sputum culture, Strep pneumoniae and Legionella urinary antigen. 05/17 BC : NGTD Endo: SSI with Accu-Chek for glycemic control. Heme: Monitor CBC and coag's. GI prophylaxis with Protonix 4 mg daily and DVT prophylaxis with SCD's./ Coumadin - INR 2.7 today 05/18 Doppler US LE : Occlusive and nonocclusive deep venous thrombosis in the right superficial femoral vein and right popliteal vein. Negative left lower extremity. Will sign off and transfer care to [facility] Level 3 Jacinto Hinkle MD May 18, 2017 07:48
[2017-05-18] MEDS: PANTOPRAZOLE SODIUM 40 MG VIAL IV SCH (08:54)
[2017-05-18] MEDS: ASPIRIN EC 81 MG TABEC PO SCH (08:54)
[2017-05-18] MEDS: METOPROLOL TARTRATE 50 MG TAB PO SCH ×2 (08:57→19:45)
[2017-05-18] MEDS: HYDROXYCHLOROQUINE SULFATE 200 MG TAB PO SCH (08:58)
[2017-05-18] MEDS: SERTRALINE HCL 50 MG TAB PO SCH (08:58)
[2017-05-18] MEDS: DOCUSATE SODIUM 50 MG/SENNA 8.6 MG TAB PO SCH ×2 (09:00→19:45)
[2017-05-18] MEDS: hydrOXYzine HCL 25 MG TAB PO SCH (09:02)
--- NOTE | 2017-05-18 09:38 | RADRPT ---
EXAM DATE/TIME: 05/18/2017 08:19 [facility] COMPARISON: CHEST SINGLE AP, May 17, 2017, 6:59. INDICATIONS : Cough, chest pain. MEDICAL HISTORY : Hypertension. Smoker. SURGICAL HISTORY : None. ENCOUNTER: Subsequent ACUITY: 2 days PAIN SCORE: 4/10 LOCATION: chest midline. FINDINGS: A single view of the chest demonstrates a mild edema pattern slightly improved from May 17. Small pl eural effusions. Multiple remote bilateral rib fractures. No pneumothorax. CONCLUSION: 1. Slight improvement in bilateral airspace disease and edema since May 17. Small effusions remain. Borderline cardiomegaly. Manjit Layton MD on May 18, 2017 at 9:34 Board Certified Radiologist. This report was verified electronically.
--- NOTE | 2017-05-18 09:50 | RADRPT ---
EXAM DATE/TIME: 05/18/2017 08:49 [facility] COMPARISON: No previous studies available for comparison. INDICATIONS : History of deep vein thrombosis. MEDICAL HISTORY : Peripheral vascular disease. Deep venous thrombosis. Chest pain. MRSA. Anticoagulant therapy, Warfar in. SURGICAL HISTORY : IVC filter. Right leg stents x3. Bilateral femur. Pins in ankle. ENCOUNTER: Initial ACUITY: 1 day PAIN SCORE: 0/10 LOCATION: Bilateral leg. TECHNIQUE: Venous ultrasound of the left and right leg was performed from the inguinal ligament to the proximal calf. Real-time, color Doppler and spectral tracing, compression and augmentation techniques were us ed. FINDINGS: There is occlusive and nonocclusive deep venous thrombosis in the right proximal superficial femoral vein extending to the right popliteal vein. Left lower extremity is negative for deep venous thrombos is. CONCLUSION: 1. Occlusive and nonocclusive deep venous thrombosis in the right superficial femoral vein and right popliteal vein. Negative left lower extremity. Manjit Layton MD on May 18, 2017 at 9:44 Board Certified Radiologist. This report was verified electronically.
--- NOTE | 2017-05-18 11:47 | PD.WCN.NOT ---
Wound Consult Description: WOUND MANAGEMENT of Right ankle per Dr Hinkle Communicated with: YESENIA Fisher Dr. Recommendation: Cleanse right medial malleolus with NS and gauze. Apply Optifoam AG and secure with rolled gauze and tape (no tape on skin) every 5-7 days and PRN for saturation or dislodgement. Cleanse right inner upper thigh with NS and gauze. Lightly pack wound with 1/4 Iodoform packing strip every other day and cover with gauze and paper tape to secure. 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 Bordered gauze dressing removed from right medial malleolus to reveal dried yellow exudate covering wound bed measuring 2cm x 1.5cm x 0.3cm with periwound of partial thickness skinloss. Wound was cleansed with NS and gauze. Yellow exudate was removed to reveal ~60% red non granulating tissue, ~30% white tissue, and ~10% yellow tissue noted with minimal bleeding when cleansed. Wound appears to be mixed etiology of vascular with discoloration noted to foot and arterial punched out wound appearance. Patient states that this is a chronic wound from removed hardware, which is possible, not likely. Wound was dressed with an optifoam AG secured with rolled gauze and tape. [employer] Analyst was asked to assess the right groin before leaving room. Gauze and silk/paper tape was removed from upper inner thigh to reveal a wound measuring 0.3cm x 0.8cm x1cm of a thick almendarez discolored skin flap covering the wound bed that was probed with a sterile qtip to obtain a depth. Periwound is thick and noted with scar tissue. There is a minimally thin clear fluid draining from wound bed with no odor noted. Wound was cleansed with NS and gauze. 4x4 gauze was used to cover wound bed and secured with paper tape at the patients request until Physician could be reached for recommendations for packing. Yana Barnes [facility] May 18, 2017 11:47
[2017-05-18] MEDS: AZITHROMYCIN INJ 500 MG in SODIUM CHLOR 0.9% 250 ML INJ 250 ML IV SCH (14:47)
--- NOTE | 2017-05-18 15:25 | EKG ---
Date Performed: 05/18/2017 Time Performed: 06:55:51 PTAGE: 71 years EKG: Sinus rhythm WITH FIRST DEGREE AV BLOCK MARKED LEFT AXIS DEVIATION MODERATE INTRAVENTRICULAR CONDUCTION DELAY NON SPECIFIC T-WAVE ABNORMALITY LEFT VENTRICULAR HYPERTROPHY Compared to previous tracing, there's less w idening of the QRS complex and improvement in the lateral ST segment depression. The changes are nons pecific in the setting of left ventricular hypertrophy, but clinical correlation will be important AB NORMAL ECG PREVIOUS TRACING : 05/17/2017 06.51 DOCTOR: Monica Bautista Interpretating Date/Time 05/18/2017 15:24:19
[2017-05-19] VITALS (28 sets, daily range): BP systolic 144–171; BP diastolic 65–85; PULSE 63–85; RESP 16–30; TEMP 97–99.2; O2SAT 90–99
[2017-05-19] MEDS: RESP: ALBUTEROL 2.5 MG/IPRATROPIUM 0.5 MG NEB (SCH) INH ×6 (04:00→23:50)
[2017-05-19] MEDS: CHLORHEXIDINE GLUCONATE 2 % 1 PACK (2 CLOTHS) TOP SCH (04:00)
[2017-05-19] MEDS: methylPREDNISolone SOD SUCC 40 MG/1 ML VIAL IV PUSH SCH ×3 (05:50→20:18)
[2017-05-19] MEDS: AZTREONAM INJ 1,000 MG in SODIUM CHLORIDE 0.9% INJ 100 ML IV SCH ×3 (05:50→20:17)
[2017-05-19 05:54] LABS: AUTOMATED NEUTROPHIL # 9.3 TH/MM3 (1.8-7.7); BASOPHIL % 0.2 % (0.0-2.0); HEMATOCRIT 30.4 % (35.0-46.0); HEMO FLAGS DIFF FINAL; LYMPH % 6.8 % (9.0-44.0); LYMPHOCYTE # 0.7 TH/MM3 (1.0-4.8); MEAN CELL VOLUME 89.5 FL (80.0-100.0); MEAN CORPUSCULAR HEMOGLOBIN 30.4 PG (27.0-34.0); MONO % 1.6 % (0.0-8.0); NEUT % 91.4 % (16.0-70.0); PLATELET COUNT 359 TH/MM3 (150-450); RED CELL DISTRIBUTION WIDTH 15.7 % (11.6-17.2); WHITE BLOOD COUNT 10.1 TH/MM3 (4.0-11.0)
[2017-05-19] MEDS: INSULIN NovoLIN REGULAR SUPPLEMENTAL SCALE SQ SCH ×4 (06:00→18:53)
[2017-05-19 06:01] LABS: INTERNATIONAL NORMALIZED RATIO 1.6 RATIO; PROTHROMBIN TIME - PATIENT 17.6 SEC (9.8-11.6)
[2017-05-19 06:27] LABS: BICARBONATE 20.7 MEQ/L (21.0-32.0); POTASSIUM 3.9 MEQ/L (3.5-5.1)
[2017-05-19 06:48] LABS: CALCIUM-PROTEIN CORRECTED 7.7 MG/DL (8.5-10.1)
[2017-05-19] MEDS: SODIUM CHLOR 0.9% 1000 ML INJ 1,000 ML IV SCH ×2 (07:35→18:48)
[2017-05-19] MEDS: METOPROLOL TARTRATE 50 MG TAB PO SCH ×2 (09:00→20:18)
[2017-05-19] MEDS: DOCUSATE SODIUM 50 MG/SENNA 8.6 MG TAB PO SCH ×2 (09:00→20:18)
[2017-05-19] MEDS: ASPIRIN EC 81 MG TABEC PO SCH (09:00)
[2017-05-19] MEDS: SERTRALINE HCL 50 MG TAB PO SCH (09:00)
[2017-05-19] MEDS: PANTOPRAZOLE SODIUM 40 MG VIAL IV SCH (09:00)
--- NOTE | 2017-05-19 11:23 | HHI.PR ---
Subjective Remarks Pt without any specific complaints. Denies any chest pain. Pt is on RA with stable O2 sats Objective Vitals Vital Signs Date Time Temp Pulse Resp B/P Pulse Ox O2 Delivery O2 Flow Rate FiO2 05/19/17 09:15 82 26 98 05/19/17 09:00 85 27 152/70 98 05/19/17 08:45 84 29 97 05/19/17 08:30 98.3 83 19 97 05/19/17 08:15 79 21 96 05/19/17 08:07 97 21 05/19/17 08:00 75 05/19/17 08:00 82 21 161/72 96 05/19/17 07:45 79 23 96 05/19/17 07:30 71 17 98 05/19/17 07:15 72 19 97 05/19/17 07:00 80 19 152/69 97 05/19/17 06:00 77 05/19/17 04:00 79 05/19/17 04:00 98.6 79 20 171/77 97 05/19/17 02:00 74 05/19/17 00:00 68 05/19/17 00:00 98.5 68 16 166/73 97 05/18/17 22:00 68 05/18/17 20:14 97 21 05/18/17 20:00 98.3 74 30 149/72 97 05/18/17 20:00 74 05/18/17 18:00 70 05/18/17 16:00 98.6 70 22 135/65 98 05/18/17 16:00 70 05/18/17 14:00 78 05/18/17 12:30 68 31 100 05/18/17 12:15 69 36 99 05/18/17 12:00 66 19 140/66 98 05/18/17 12:00 98.0 72 22 140/66 98 05/18/17 12:00 78 05/18/17 11:45 64 22 97 05/18/17 11:30 66 35 98 05/18/17 11:15 69 35 99 05/18/17 11:00 66 30 133/63 98 05/18/17 05/18/17 05/19/17 15:00 23:00 07:00 Intake Total 555 ml 1277 ml 609 ml Output Total 850 ml 600 ml 800 ml Balance -295 ml 677 ml -191 ml Intake Oral 280 ml 240 ml IV Total 275 ml 1037 ml 609 ml Output Urine Total 850 ml 600 ml 800 ml # Bowel Movements 0 0 Result Diagram: 05/19/17 0530 05/19/17 0530 Other Results Laboratory Tests Test 05/17/17 05/17/17 05/17/17 05/17/17 11:20 14:00 14:07 20:14 Nasal Screen MRSA (PCR) MRSA NOT DETECTED Troponin I 1.05 NG/ML 1.22 NG/ML Hemoglobin 11.1 GM/DL Hematocrit 32.7 % Test 05/18/17 05/19/17 04:27 05:30 White Blood Count 5.6 TH/MM3 10.1 TH/MM3 Red Blood Count 3.41 MIL/MM3 3.40 MIL/MM3 Hemoglobin 10.3 GM/DL 10.3 GM/DL Hematocrit 29.8 % 30.4 % Mean Corpuscular Volume 87.5 FL 89.5 FL Mean Corpuscular Hemoglobin 30.2 PG 30.4 PG Mean Corpuscular Hemoglobin 34.5 % 34.0 % Concent Red Cell Distribution Width 15.4 % 15.7 % Platelet Count 349 TH/MM3 359 TH/MM3 Mean Platelet Volume 6.7 FL 6.5 FL Neutrophils (%) (Auto) 86.6 % 91.4 % Lymphocytes (%) (Auto) 9.3 % 6.8 % Monocytes (%) (Auto) 3.6 % 1.6 % Eosinophils (%) (Auto) 0.0 % 0.0 % Basophils (%) (Auto) 0.5 % 0.2 % Neutrophils # (Auto) 4.8 TH/MM3 9.3 TH/MM3 Lymphocytes # (Auto) 0.5 TH/MM3 0.7 TH/MM3 Monocytes # (Auto) 0.2 TH/MM3 0.2 TH/MM3 Eosinophils # (Auto) 0.0 TH/MM3 0.0 TH/MM3 Basophils # (Auto) 0.0 TH/MM3 0.0 TH/MM3 CBC Comment DIFF FINAL DIFF FINAL Differential Comment Prothrombin Time 31.0 SEC 17.6 SEC Prothromb Time International 2.7 RATIO 1.6 RATIO Ratio Sodium Level 139 MEQ/L 144 MEQ/L Potassium Level 3.6 MEQ/L 3.9 MEQ/L Chloride Level 104 MEQ/L 113 MEQ/L Carbon Dioxide Level 23.2 MEQ/L 20.7 MEQ/L Anion Gap 12 MEQ/L 10 MEQ/L Blood Urea Nitrogen 34 MG/DL 38 MG/DL Creatinine 1.46 MG/DL 1.38 MG/DL Estimat Glomerular Filtration 35 ML/MIN 38 ML/MIN Rate Random Glucose 132 MG/DL 105 MG/DL Calcium Level 8.1 MG/DL 7.4 MG/DL Phosphorus Level 4.2 MG/DL Magnesium Level 2.2 MG/DL Troponin I 0.95 NG/ML Protein Corrected Calcium 7.7 MG/DL Total Protein 6.5 GM/DL Imaging Last Impressions Lower Extremity Ultrasound 05/18/17 0000 Signed Impressions: Service Date/Time: April 08:49 - CONCLUSION: 1. Occlusive and nonocclusive deep venous thrombosis in the right superficial femoral vein and right popliteal vein. Negative left lower extremity. Manjit Layton MD Chest X-Ray 05/18/17 0000 Signed Impressions: Service Date/Time: April 08:19 - CONCLUSION: 1. Slight improvement in bilateral airspace disease and edema since May 17. Small effusions remain. Borderline cardiomegaly. Manjit Layton MD Objective Remarks General: NAD, AAOx3 Chest: CTA Cardiac: Regular Abd: +BS, soft ND/NT Ext: No edema, nonhealing wound on right medial ankle, bandages are c/d/i A/P Problem List: (1) Respiratory distress Status: Acute Plan: - Pt is a 71 y/o female with history of DVT of her right lower extremity on Coumadin, questionable COPD, CAD, PVD, HTN and an active smoker who presented with shortness of breath associated with chest pain. - Upon [facility] arrival the patient had O2 saturation of 82% on room air and systolic blood pressure in the 200s. - She was given breathing treatment along with sublingual nitroglycerin x1, Lasix 40 mg IV x1 and placed on C-PAP en route to the ED. - In the ED, she was chest pain-free and a STEMI alert was called, however, the patient was not felt to be a candidate for any cardiac catheterization at that time. - Her EKG showed sinus rhythm with a rate of 99 beats per minute and marked left axis deviation with left bundle branch block. - She was placed on BiPAP and her ABG showed a pH of 7.35, CO2 42, pAO2 121, bicarb 22 and saturation 96%. - BNP elevated at 708 and troponin increased from 0.03-->0.43-->1.05-->1.22--> 0.95. - CXR in the ED showed right lower lobe airspace disease which may reflect aspiration pneumonia. - She was admitted to the ICU under the care of the intensivists. - She was given Aztreonam and Azithromycin following admission. - She was given Solu-Medrol 125mg IV in the ED and continued on Solu-Medrol 40mg Q8H - Patient was able to be weaned off oxygen to RA on 05/18 - Cardiology is following - 2D echo (05/17) --> EF 45-50%, LA is oyqt-kp-ickmzezodn dilated, RA mild-to- moderately dilated, mild mitral valve regurg, aortic valve sclerosis, mild tricuspid regurg, moderate pulmonary HTN (60-70mmHg) - Pt is planned for cardiac cath for Monday due to contrast allergy - Pt is on Metoprolol 50mg Q12H and ASA 81mg po daily - Pt stable for transfer out of ICU - PT evaluation (2) Pneumonia Status: Acute Plan: - See above (3) Elevated troponin Status: Acute Plan: - See above (4) Hx of deep venous thrombosis Status: Chronic Plan: - Pt with hx of RLE DVT and has had IVC filter placed previously - [facility] (05/18) --> Occlusive and nonocclusive deep venous thrombosis in the right superficial femoral vein and right popliteal vein. Negative left lower extremity. - Coumadin has been on hold (5) CAD (coronary artery disease) Status: Chronic Plan: - Pt with previously reported hx of CAD and ID but no previous stenting to the coronary arteries - BB/ASA (6) PAD (peripheral artery disease) Status: Chronic Plan: - Pt has had previous stenting to the RLE (7) Rheumatoid arthritis Status: Chronic Plan: - Home meds resumed Assessment and Plan Patient examined. Assessment and plan formulated with Alexus Gibson PA-C. I agree with the above. Problem Qualifiers (1) Pneumonia: Qualified Code: J18.1 - Pneumonia of right lower lobe due to infectious organism Alexus Gibson May 19, 2017 11:23 Elliott Ray DO May 20, 2017 00:18
[2017-05-19] MEDS: hydrOXYzine HCL 25 MG TAB PO SCH (13:00)
[2017-05-19] MEDS: HYDROXYCHLOROQUINE SULFATE 200 MG TAB PO SCH (13:00)
[2017-05-19] MEDS: AZITHROMYCIN INJ 500 MG in SODIUM CHLOR 0.9% 250 ML INJ 250 ML IV SCH (13:22)
[2017-05-19] MEDS: hydrALAZINE HCL 20 MG/ML VIAL IV PUSH PRN (15:41)
[2017-05-19] MEDS: MIRTAZAPINE 15 MG TAB PO SCH (20:18)
[2017-05-19] MEDS: SODIUM CHLORIDE 0.9% FLUSH 10 ML FLUSH IVF PRN (20:18)
[2017-05-20] VITALS (9 sets, daily range): BP systolic 124–162; BP diastolic 60–74; PULSE 66–85; RESP 18–20; TEMP 97.8–98.8; O2SAT 94–100
[2017-05-20] MEDS: RESP: ALBUTEROL 2.5 MG/IPRATROPIUM 0.5 MG NEB (SCH) INH ×6 (03:08→23:26)
[2017-05-20] MEDS: CHLORHEXIDINE GLUCONATE 2 % 1 PACK (2 CLOTHS) TOP SCH (03:27)
[2017-05-20] MEDS: AZTREONAM INJ 1,000 MG in SODIUM CHLORIDE 0.9% INJ 100 ML IV SCH ×3 (05:44→21:43)
[2017-05-20] MEDS: methylPREDNISolone SOD SUCC 40 MG/1 ML VIAL IV PUSH SCH (05:44)
[2017-05-20] MEDS: INSULIN NovoLIN REGULAR SUPPLEMENTAL SCALE SQ SCH ×3 (05:46→11:59)
[2017-05-20 07:28] LABS: AUTOMATED NEUTROPHIL # 8.4 TH/MM3 (1.8-7.7); BASOPHIL % 0.2 % (0.0-2.0); HEMO FLAGS DIFF FINAL; LYMPHOCYTE # 0.9 TH/MM3 (1.0-4.8); MEAN CORPUSCULAR HEMOGLOBIN 30.3 PG (27.0-34.0); MEAN CORPUSCULAR HGB CONC 33.7 % (32.0-36.0); MONO % 3.7 % (0.0-8.0); NEUT % 87.1 % (16.0-70.0); PLATELET COUNT 346 TH/MM3 (150-450); RED BLOOD COUNT 3.23 MIL/MM3 (4.00-5.30); RED CELL DISTRIBUTION WIDTH 15.8 % (11.6-17.2); WHITE BLOOD COUNT 9.6 TH/MM3 (4.0-11.0)
[2017-05-20 07:41] LABS: INTERNATIONAL NORMALIZED RATIO 1.1 RATIO; PROTHROMBIN TIME - PATIENT 12.5 SEC (9.8-11.6)
[2017-05-20 07:53] LABS: BICARBONATE 20.4 MEQ/L (21.0-32.0); MAGNESIUM 2.2 MG/DL (1.5-2.5); POTASSIUM 4.2 MEQ/L (3.5-5.1)
[2017-05-20 08:17] LABS: CALCIUM-PROTEIN CORRECTED 7.7 MG/DL (8.5-10.1)
[2017-05-20] MEDS: hydrOXYzine HCL 25 MG TAB PO SCH (09:53)
[2017-05-20] MEDS: ASPIRIN EC 81 MG TABEC PO SCH (09:53)
[2017-05-20] MEDS: HYDROXYCHLOROQUINE SULFATE 200 MG TAB PO SCH (09:53)
[2017-05-20] MEDS: DOCUSATE SODIUM 50 MG/SENNA 8.6 MG TAB PO SCH ×2 (09:53→21:43)
[2017-05-20] MEDS: SERTRALINE HCL 50 MG TAB PO SCH (09:53)
[2017-05-20] MEDS: METOPROLOL TARTRATE 50 MG TAB PO SCH ×2 (09:53→21:44)
[2017-05-20] MEDS: PANTOPRAZOLE SODIUM 40 MG VIAL IV SCH (09:56)
--- NOTE | 2017-05-20 13:34 | HHI.PR ---
Subjective Remarks No new complaints. No chest pain or palpitation. No worsening of chronic SOB. Objective Vitals Vital Signs Date Time Temp Pulse Resp B/P Pulse Ox O2 Delivery O2 Flow Rate FiO2 05/20/17 12:00 98.8 67 20 159/67 98 05/20/17 08:00 98.5 79 20 162/69 95 05/20/17 07:48 100 21 05/20/17 04:16 98.2 78 18 159/72 94 05/20/17 00:10 97.8 66 18 162/74 96 05/19/17 19:43 98.4 74 18 146/67 95 05/19/17 16:00 98.5 84 18 171/77 99 05/19/17 15:48 99 21 05/19/17 14:28 99.2 77 18 144/85 99 05/19/17 14:00 83 05/19/17 05/19/17 05/20/17 15:00 23:00 07:00 Intake Total 1183 ml 707 ml Output Total 1100 ml 750 ml 800 ml Balance 83 ml -750 ml -93 ml Intake Oral 550 ml IV Total 633 ml 707 ml Output Urine Total 1100 ml 750 ml 800 ml # Bowel Movements 1 Result Diagram: 05/20/17 0705 05/20/17 0705 Imaging Last Impressions Lower Extremity Ultrasound 05/18/17 0000 Signed Impressions: Service Date/Time: April 08:49 - CONCLUSION: 1. Occlusive and nonocclusive deep venous thrombosis in the right superficial femoral vein and right popliteal vein. Negative left lower extremity. Manjit Layton MD Chest X-Ray 05/18/17 0000 Signed Impressions: Service Date/Time: April 08:19 - CONCLUSION: 1. Slight improvement in bilateral airspace disease and edema since May 17. Small effusions remain. Borderline cardiomegaly. Manjit Layton MD Objective Remarks General: NAD, AAOx3 Chest: CTA Cardiac: Regular Abd: +BS, soft ND/NT Ext: No edema, nonhealing wound on right medial ankle, bandages are c/d/i A/P Problem List: (1) Respiratory distress Status: Acute Plan: - Comgmt with Cardiology - Pt is a 71 y/o female with history of DVT of her right lower extremity on Coumadin, questionable COPD, CAD, PVD, HTN and an active smoker who presented with shortness of breath associated with chest pain. - Upon [facility] arrival the patient had O2 saturation of 82% on room air and systolic blood pressure in the 200s. - She was given breathing treatment along with sublingual nitroglycerin x1, Lasix 40 mg IV x1 and placed on C-PAP en route to the ED. - In the ED, she was chest pain-free and a STEMI alert was called, however, the patient was NOT felt to be a candidate for any cardiac catheterization at that time. - Her EKG showed sinus rhythm with a rate of 99 beats per minute and marked left axis deviation with left bundle branch block. - She was placed on BiPAP and her ABG showed a pH of 7.35, CO2 42, pAO2 121, bicarb 22 and saturation 96%. - BNP elevated at 708 and troponin increased from 0.03-->0.43-->1.05-->1.22--> 0.95. - CXR in the ED showed right lower lobe airspace disease which may reflect aspiration pneumonia. - She was admitted to the ICU under the care of the intensivists. - Pt received Aztreonam (05/17 - 05/20/17) and Azithromycin (05/17 -05/20/17) - She was given Solu-Medrol 125mg IV in the ED and continued on Solu-Medrol 40mg Q8H, change to PO prednisone - Patient was able to be weaned off oxygen to RA on 05/18 - 2D echo (05/17) --> EF 45-50%, LA is inpr-ls-jjycegzgpz dilated, RA mild-to- moderately dilated, mild mitral valve regurg, aortic valve sclerosis, mild tricuspid regurg, moderate pulmonary HTN (60-70mmHg) - Pt is planned for cardiac cath for Monday due to contrast allergy - Pt is on Metoprolol 50mg Q12H and ASA 81mg po daily - PT 05/20/17 - Pt interviewed and examined - Continue treatment plan as outlined above. (2) Pneumonia Status: Acute Plan: - See above (3) Elevated troponin Status: Acute Plan: - See above (4) Hx of deep venous thrombosis Status: Chronic Plan: - Pt with hx of RLE DVT and has had IVC filter placed previously - [facility] (05/18) --> Occlusive and nonocclusive deep venous thrombosis in the right superficial femoral vein and right popliteal vein. Negative left lower extremity. - Coumadin has been on hold (5) CAD (coronary artery disease) Status: Chronic Plan: - Pt with previously reported hx of CAD and [place] but no previous stenting to the coronary arteries - BB/ASA (6) PAD (peripheral artery disease) Status: Chronic Plan: - Pt has had previous stenting to the RLE (7) Rheumatoid arthritis Status: Chronic Plan: - Home meds resumed Problem Qualifiers (1) Pneumonia: Qualified Code: J18.1 - Pneumonia of right lower lobe due to infectious organism Elliott Ray DO May 20, 2017 13:34
[2017-05-20] MEDS: AZITHROMYCIN INJ 500 MG in SODIUM CHLOR 0.9% 250 ML INJ 250 ML IV SCH (14:04)
[2017-05-20] MEDS: predniSONE 20 MG TAB PO SCH (21:43)
[2017-05-20] MEDS: SODIUM CHLOR 0.9% 1000 ML INJ 1,000 ML IV SCH (21:44)
[2017-05-20] MEDS: MIRTAZAPINE 15 MG TAB PO SCH (21:44)
[2017-05-20] MEDS: SODIUM CHLORIDE 0.9% FLUSH 10 ML FLUSH IVF PRN (21:45)
[2017-05-21] VITALS (8 sets, daily range): BP systolic 148–182; BP diastolic 65–82; PULSE 60–75; RESP 16–19; TEMP 96.8–98.6; O2SAT 95–100
[2017-05-21] MEDS: hydrALAZINE HCL 20 MG/ML VIAL IV PUSH PRN (01:52)
[2017-05-21] MEDS: RESP: ALBUTEROL 2.5 MG/IPRATROPIUM 0.5 MG NEB (SCH) INH ×3 (03:30→11:59)
[2017-05-21] MEDS: CHLORHEXIDINE GLUCONATE 2 % 1 PACK (2 CLOTHS) TOP SCH (04:00)
[2017-05-21] MEDS: SODIUM CHLOR 0.9% 1000 ML INJ 1,000 ML IV SCH ×2 (05:37→21:12)
[2017-05-21] MEDS: INSULIN NovoLIN REGULAR SUPPLEMENTAL SCALE SQ SCH ×4 (05:37→18:00)
[2017-05-21] MEDS: DOCUSATE SODIUM 50 MG/SENNA 8.6 MG TAB PO SCH ×2 (09:00→21:00)
[2017-05-21 09:03] LABS: INTERNATIONAL NORMALIZED RATIO 1.1 RATIO; PROTHROMBIN TIME - PATIENT 12.3 SEC (9.8-11.6)
[2017-05-21] MEDS: predniSONE 20 MG TAB PO SCH ×2 (09:24→21:10)
[2017-05-21] MEDS: PANTOPRAZOLE SODIUM 40 MG VIAL IV SCH (09:24)
[2017-05-21] MEDS: hydrOXYzine HCL 25 MG TAB PO SCH (09:24)
[2017-05-21] MEDS: METOPROLOL TARTRATE 50 MG TAB PO SCH ×2 (09:25→21:10)
[2017-05-21] MEDS: SERTRALINE HCL 50 MG TAB PO SCH (09:25)
[2017-05-21] MEDS: ASPIRIN EC 81 MG TABEC PO SCH (09:25)
[2017-05-21] MEDS: HYDROXYCHLOROQUINE SULFATE 200 MG TAB PO SCH (09:26)
--- NOTE | 2017-05-21 12:51 | HHI.PR ---
Subjective Remarks Pt reports that overnight she had difficulty with nausea and elevation of her blood pressure. Her nausea is better today and she is tolerating PO intake. Objective Vitals Vital Signs Date Time Temp Pulse Resp B/P Pulse Ox O2 Delivery O2 Flow Rate FiO2 05/21/17 12:00 97.4 60 18 150/74 100 05/21/17 08:00 96.8 75 16 157/68 95 05/21/17 04:00 97.6 73 19 148/67 100 05/21/17 02:00 Nasal Cannula 2.00 05/21/17 01:50 182/82 Automatic Cuff 05/21/17 00:00 98.2 68 19 96 05/20/17 23:28 94 21 05/20/17 20:00 98.4 78 19 161/69 100 05/20/17 20:00 Room Air 05/20/17 19:06 98 21 05/20/17 16:00 98.5 67 20 124/60 97 05/20/17 05/20/17 05/21/17 15:00 23:00 07:00 Intake Total 240 ml 200 ml Output Total 850 ml Balance -850 ml 240 ml 200 ml Intake Oral 240 ml 200 ml Output Urine Total 850 ml # Voids 2 3 # Bowel Movements 2 Result Diagram: 05/20/17 0705 05/20/17 0705 Imaging Last Impressions Lower Extremity Ultrasound 05/18/17 0000 Signed Impressions: Service Date/Time: April 08:49 - CONCLUSION: 1. Occlusive and nonocclusive deep venous thrombosis in the right superficial femoral vein and right popliteal vein. Negative left lower extremity. Manjit Layton MD Chest X-Ray 05/18/17 0000 Signed Impressions: Service Date/Time: April 08:19 - CONCLUSION: 1. Slight improvement in bilateral airspace disease and edema since May 17. Small effusions remain. Borderline cardiomegaly. Manjit Layton MD Objective Remarks General: NAD, AAOx3 Chest: CTA Cardiac: Regular Abd: +BS, soft ND/NT Ext: No edema, nonhealing wound on right medial ankle, bandages are c/d/i A/P Problem List: (1) Respiratory distress Status: Acute Plan: - Comgmt with Cardiology - Pt is a 71 y/o female with history of DVT of her right lower extremity on Coumadin, questionable COPD, CAD, PVD, HTN and an active smoker who presented with shortness of breath associated with chest pain. - Upon [facility] arrival the patient had O2 saturation of 82% on room air and systolic blood pressure in the 200s. - She was given breathing treatment along with sublingual nitroglycerin x1, Lasix 40 mg IV x1 and placed on C-PAP en route to the ED. - In the ED, she was chest pain-free and a STEMI alert was called, however, the patient was NOT felt to be a candidate for any cardiac catheterization at that time. - Her EKG showed sinus rhythm with a rate of 99 beats per minute and marked left axis deviation with left bundle branch block. - She was placed on BiPAP and her ABG showed a pH of 7.35, CO2 42, pAO2 121, bicarb 22 and saturation 96%. - BNP elevated at 708 and troponin increased from 0.03-->0.43-->1.05-->1.22--> 0.95. - CXR in the ED showed right lower lobe airspace disease which may reflect aspiration pneumonia. - She was admitted to the ICU under the care of the intensivists. - Pt received Aztreonam (05/17 - 05/20/17) and Azithromycin (05/17 -05/20/17) - She was given Solu-Medrol 125mg IV in the ED and continued on Solu-Medrol 40mg Q8H, change to PO prednisone - Patient was able to be weaned off oxygen to RA on 05/18 - 2D echo (05/17) --> EF 45-50%, LA is dufz-rb-qpvxkkcmpi dilated, RA mild-to- moderately dilated, mild mitral valve regurg, aortic valve sclerosis, mild tricuspid regurg, moderate pulmonary HTN (60-70mmHg) - Pt is planned for cardiac cath for Monday due to contrast allergy - Pt is on Metoprolol 50mg Q12H and ASA 81mg po daily - PT 05/21/17 - Pt interviewed and examined - Continue treatment plan as outlined above. (2) HTN (hypertension) Status: Acute Plan: - continue metoprolol - start procardia xl 30mg daily - observe (3) Pneumonia Status: Acute Plan: - See above (4) Elevated troponin Status: Acute Plan: - See above (5) Hx of deep venous thrombosis Status: Chronic Plan: - Pt with hx of RLE DVT and has had IVC filter placed previously - [facility] (05/18) --> Occlusive and nonocclusive deep venous thrombosis in the right superficial femoral vein and right popliteal vein. Negative left lower extremity. - Coumadin has been on hold (6) CAD (coronary artery disease) Status: Chronic Plan: - Pt with previously reported hx of CAD and [place] but no previous stenting to the coronary arteries - BB/ASA (7) PAD (peripheral artery disease) Status: Chronic Plan: - Pt has had previous stenting to the RLE (8) Rheumatoid arthritis Status: Chronic Plan: - Home meds resumed Problem Qualifiers (1) HTN (hypertension): Qualified Code: I10 - Essential hypertension (2) Pneumonia: Qualified Code: J18.1 - Pneumonia of right lower lobe due to infectious organism Elliott Ray DO May 21, 2017 12:50
[2017-05-21] MEDS ORDERED: NIFEdipine 30 MG SUSTAINED RELEASE TAB PO SCH (13:15)
[2017-05-21] MEDS ORDERED: RESP: ALBUTEROL 2.5 MG/IPRATROPIUM 0.5 MG NEB (PRN) INH (16:00)
[2017-05-21] MEDS: MIRTAZAPINE 15 MG TAB PO SCH (21:10)
[2017-05-22] VITALS (14 sets, daily range): BP systolic 140–177; BP diastolic 60–77; PULSE 58–81; RESP 16–20; TEMP 97.6–99; O2SAT 92–98
[2017-05-22] MEDS: CHLORHEXIDINE GLUCONATE 2 % 1 PACK (2 CLOTHS) TOP SCH (04:00)
[2017-05-22] MEDS: INSULIN NovoLIN REGULAR SUPPLEMENTAL SCALE SQ SCH ×4 (06:00→17:55)
[2017-05-22] MEDS ORDERED: predniSONE 50 MG TAB PO ONE (07:30)
--- NOTE | 2017-05-22 08:38 | PD.CARD.PN ---
Subjective Subjective Remarks denies chest pain Objective Vital Signs / I&O Vital Signs Date Time Temp Pulse Resp B/P Pulse Ox O2 Delivery O2 Flow Rate FiO2 05/22/17 04:00 97.6 81 20 140/60 94 05/22/17 04:00 98.7 68 16 170/74 93 05/22/17 00:00 97.9 78 18 177/68 96 05/22/17 00:00 Room Air 05/21/17 20:12 69 05/21/17 20:00 98.6 73 16 160/74 97 05/21/17 20:00 Room Air 05/21/17 16:00 98.6 67 19 150/65 100 05/21/17 12:00 97.4 60 18 150/74 100 I/O 05/21/17 05/21/17 05/21/17 05/22/17 05/22/17 05/22/17 07:00 15:00 23:00 07:00 15:00 23:00 Intake Total 200 ml 360 ml 1063 ml 601 ml Balance 200 ml 360 ml 1063 ml 601 ml Intake Oral 200 ml 360 ml IV Total 1063 ml 601 ml # Voids 3 4 1 3 # Bowel Movements 2 2 Physical Exam GENERAL: Well-nourished, well-developed patient in no apparent distress. NECK: No JVD. No carotid bruit. CARDIOVASCULAR: Regular rate and rhythm. S1/S2 no murmur, rub, or gallop. RESPIRATORY: No accessory muscle use. Clear to auscultation. Breath sounds equal bilaterally. GASTROINTESTINAL: Abdomen soft, non-tender, nondistended. MUSCULOSKELETAL: Extremities without clubbing, cyanosis, or edema. Assessment and Plan Problem List: (1) CAD (coronary artery disease) (2) HTN (hypertension) Assessment and Plan coronary angiogram this morning, further recommendations will depend upon that outcome. HTN - increase nifedipine to 60 mg daily Problem Qualifiers (1) HTN (hypertension): Qualified Code: I10 - Essential hypertension Nishant Turner May 22, 2017 08:38
[2017-05-22] MEDS: NIFEdipine 30 MG SUSTAINED RELEASE TAB PO SCH (09:19)
[2017-05-22] MEDS: HYDROXYCHLOROQUINE SULFATE 200 MG TAB PO SCH (09:19)
[2017-05-22] MEDS: DOCUSATE SODIUM 50 MG/SENNA 8.6 MG TAB PO SCH ×2 (09:19→21:00)
[2017-05-22] MEDS: ASPIRIN EC 81 MG TABEC PO SCH (09:19)
[2017-05-22] MEDS: SERTRALINE HCL 50 MG TAB PO SCH (09:19)
[2017-05-22] MEDS: hydrOXYzine HCL 25 MG TAB PO SCH (09:20)
[2017-05-22] MEDS: METOPROLOL TARTRATE 50 MG TAB PO SCH ×2 (09:20→21:08)
[2017-05-22] MEDS: PANTOPRAZOLE SODIUM 40 MG VIAL IV SCH (09:20)
[2017-05-22] MEDS: predniSONE 20 MG TAB PO SCH ×2 (09:20→21:00)
--- NOTE | 2017-05-22 09:31 | HHI.PR ---
Subjective Remarks eager for d/c Objective Vitals heart reg lung cta abd s/nt ext no edema chronic nonhealing wound ankle Vital Signs Date Time Temp Pulse Resp B/P Pulse Ox O2 Delivery O2 Flow Rate FiO2 05/22/17 08:00 98.1 73 20 162/70 94 05/22/17 04:00 97.6 81 20 140/60 94 05/22/17 04:00 98.7 68 16 170/74 93 05/22/17 00:00 97.9 78 18 177/68 96 05/22/17 00:00 Room Air 05/21/17 20:12 69 05/21/17 20:00 98.6 73 16 160/74 97 05/21/17 20:00 Room Air 05/21/17 16:00 98.6 67 19 150/65 100 05/21/17 12:00 97.4 60 18 150/74 100 05/21/17 05/21/17 05/22/17 15:00 23:00 07:00 Intake Total 360 ml 1063 ml 601 ml Balance 360 ml 1063 ml 601 ml Intake Oral 360 ml IV Total 1063 ml 601 ml # Voids 4 1 3 # Bowel Movements 2 Result Diagram: 05/20/17 0705 05/20/17 0705 Imaging Last Impressions Lower Extremity Ultrasound 05/18/17 0000 Signed Impressions: Service Date/Time: April 08:49 - CONCLUSION: 1. Occlusive and nonocclusive deep venous thrombosis in the right superficial femoral vein and right popliteal vein. Negative left lower extremity. Manjit Layton MD Chest X-Ray 05/18/17 0000 Signed Impressions: Service Date/Time: April 08:19 - CONCLUSION: 1. Slight improvement in bilateral airspace disease and edema since May 17. Small effusions remain. Borderline cardiomegaly. Manjit Layton MD A/P Problem List: (1) Respiratory distress Status: Acute Plan: - Comgmt with Cardiology - Pt is a 71 y/o female with history of DVT of her right lower extremity on Coumadin, questionable COPD, CAD, PVD, HTN and an active smoker who presented with shortness of breath associated with chest pain. - Upon [facility] arrival the patient had O2 saturation of 82% on room air and systolic blood pressure in the 200s. - She was given breathing treatment along with sublingual nitroglycerin x1, Lasix 40 mg IV x1 and placed on C-PAP en route to the ED. - In the ED, she was chest pain-free and a STEMI alert was called, however, the patient was NOT felt to be a candidate for any cardiac catheterization at that time. - Her EKG showed sinus rhythm with a rate of 99 beats per minute and marked left axis deviation with left bundle branch block. - She was placed on BiPAP and her ABG showed a pH of 7.35, CO2 42, pAO2 121, bicarb 22 and saturation 96%. - BNP elevated at 708 and troponin increased from 0.03-->0.43-->1.05-->1.22--> 0.95. - CXR in the ED showed right lower lobe airspace disease which may reflect aspiration pneumonia. - She was admitted to the ICU under the care of the intensivists. - Pt received Aztreonam (05/17 - 05/20/17) and Azithromycin (05/17 -05/20/17) - She was given Solu-Medrol 125mg IV in the ED and continued on Solu-Medrol 40mg Q8H, change to PO prednisone - Patient was able to be weaned off oxygen to RA on 05/18 - 2D echo (05/17) --> EF 45-50%, LA is dkaf-wa-cpayfzafhd dilated, RA mild-to- moderately dilated, mild mitral valve regurg, aortic valve sclerosis, mild tricuspid regurg, moderate pulmonary HTN (60-70mmHg) - Pt is on Metoprolol 50mg Q12H and ASA 81mg po daily - PT [facility] today. d/c when ok with cardiology. med adjustments. (2) HTN (hypertension) Status: Acute Plan: - meds adjusted. (3) Pneumonia Status: Acute Plan: - See above (4) Elevated troponin Status: Acute Plan: - See above (5) Hx of deep venous thrombosis Status: Chronic Plan: - Pt with hx of RLE DVT and has had IVC filter placed previously - [facility] (05/18) --> Occlusive and nonocclusive deep venous thrombosis in the right superficial femoral vein and right popliteal vein. Negative left lower extremity. - Coumadin has been on hold (6) CAD (coronary artery disease) Status: Chronic Plan: - Pt with previously reported hx of CAD and [place] but no previous stenting to the coronary arteries - BB/ASA (7) PAD (peripheral artery disease) Status: Chronic Plan: - Pt has had previous stenting to the RLE (8) Rheumatoid arthritis Status: Chronic Plan: - Home meds resumed Problem Qualifiers (1) HTN (hypertension): Qualified Code: I10 - Essential hypertension (2) Pneumonia: Qualified Code: J18.1 - Pneumonia of right lower lobe due to infectious organism Giovany Wiseman MD May 22, 2017 09:31
[2017-05-22] MEDS ORDERED: IOHEXOL 350 MG/ML 100 ML BTL (for Cath Lab) OTHER ONE (09:33)
[2017-05-22] MEDS ORDERED: HEPARIN-NS/PF INJ 500 ML ONE (09:41)
[2017-05-22] MEDS ORDERED: diphenhydrAMINE HCL 50 MG/ML VIAL ONE (09:42)
[2017-05-22] MEDS ORDERED: MIDAZOLAM HCL 2 MG/2 ML VIAL ONE (09:42)
[2017-05-22] MEDS ORDERED: LABETALOL HCL 100 MG/20 ML VIAL ONE (10:02)
[2017-05-22] MEDS ORDERED: HEPARIN SODIUM - IV 10,000 UNITS/10 ML VIAL ONE (10:07)
[2017-05-22] MEDS ORDERED: CLOPIDOGREL 300 MG TAB ONE (10:22)
[2017-05-22] MEDS ORDERED: LIDOCAINE HCL 1% 50 ML VIAL INFIL PRN (10:30)
[2017-05-22] MEDS ORDERED: LORazepam 2 MG/ML VIAL IV PRN (10:30)
[2017-05-22] MEDS ORDERED: BACITRACIN OINT 0.9 GM PKT TOP ONE (10:30)
[2017-05-22] MEDS ORDERED: MISC INFORMATION XX ONE (10:30)
[2017-05-22] MEDS ORDERED: ONDANSETRON HCL 4 MG/2 ML VIAL IV PRN (10:30)
[2017-05-22] MEDS ORDERED: ATROPINE SULFATE 1 MG/ML VIAL IV PRN (10:30)
[2017-05-22] MEDS ORDERED: SODIUM CHLOR 0.9% 250 ML INJ 250 ML IV PRN (10:30)
--- NOTE | 2017-05-22 10:38 | CATHPROC ---
[facility] HIS Report Study Information Study Number Admission Scheduled Start Study Start [id number] May 17 2017 8:26AM 05/22/2017 May 22 2017 9:13AM [place] [facility] Cardiac Catheterization Admit Source Facility Department Other [facility] - Plating Technician Physician and Clinical Staff Initial Chepe Lenz Microsoft Bi Consultant Michelle Cerrato,RN Recorder Alexus Meeks,YESENIA Scrub Arnulfo Morris RCIS(BS) Procedures Performed Procedure Location (Site) Vessel Name Coronary Angiograms LCA Left Coronary Coronary Angiograms RCA Right Coronary L Heart Cath PTCA RCA Mid Right Coronary PTCA ADD ON'S Stent RCA Mid Right Coronary Wire insertion Fem Art (right) Femoral Art Equipment Time Raw Stock Dyeing Machine Tender Description Size Mfg Part Number Used/Scraped [id number] 10:09 Zoove CRITICAL CARE WIRE, ASAArtabase PROWATER 180CM 180CM Used *[id number] TRANSDUCER, TRUWAVE [id number] 09:15 Medius CERRATO * Used W/STOCKCOCK *[id number] *[id number] *[id number] *[id number] 09:15 MEDLINE INDUSTRIES PACK, CCL CUSTOM * Used *[id number] 09:15 simpleFLOORS PACER PEN, SKIN DUAL W/ RULER * Used *[id number] 10:16 MEDTRONIC BALLOON, 2.5 X 20MM EUPHORA 20MM Used *[id number] 10:14 MEDTRONIC STENT, 3.5 26 INTEGRITY 3.5 26 Used *[id number] 10:07 CinaMaker MEDICAL 30 JEFERSON INDEFLATOR Used *[id number] 09:15 CinaMaker MEDICAL SHEATH, FR6.5 PRELUDE 11CM FR 6.5 038ACT Used *[id number] 09:15 CinaMaker MEDICAL WIRE, 3MMJ .035 180CM 180CM Used *[id number] 09:15 NAMIC MANIFOLD, 4 PORT * Used *[id number] 09:32 NYCOMED OMNIPAQUE, 350 MG, 150ML 150ML [id number] Used [id number] 09:15 GAUTHIER MEDICAL BLANKET,WARM AIR CCL * Used *[id number] Equipment Model, Serial, Lot Number and Expiration Data Description Model Number Serial Number Lot Number Expiration Date PACK, CCL CUSTOM [id number] 01-04-2018 History: Current Medications Medication Dosage/Unit Route Frequency Last Date/Time Taken ASA Coumadin History: Allergies Allergy Reaction *MDRO Multi-Drug Resistant Organism Contrast Media Diflucan Keflex Pravachol History: Risk Factors Family History of Hypertension Dyslipidemia Previous IA Previous Heart Failure Premature CAD Yes No No Yes No Prior Valve Prior PCI Prior CABG Surgery No No No Cerebrovascular Peripheral Artery Chronic Lung On Dialysis Diabetes Disease Disease Disease No No Yes Yes No History: Risk Factors Selection Items Current Smoker History: Symptoms/Diagnosis Selection Items Chest pain SOB History: CV Disease Selection Items Known CAD IA History: Stress Tests Stress or Imaging Studies Performed No History: Other Disease Selection Items CAD COPD HTN History: Other Current Smoker Method Packs a Day Years Used Pack Years Yes Cigarettes 1 55 55 Regular Diet Yes Labs Hgb (g/dl) Hct (%) RBC (MIL/MM3) WBC (l/cumm) Platelets (thousands) 11.60-17.00 35.00-51.00 4.00-5.90 4.00-11.00 150.00-450.00 9.8 29 3.2 9.6 346 Glucose (mg/dl) BUN (mg/dl) Creatinine (mg/dl) BUN:Creatinine (1:x) 74.00-106.00 7.00-18.00 0.50-1.30 10.00-20.00 102 41 1.2 34.2 Na (meq/l) K (meq/l) Cl (meq/l) CO2 (mmol/L) Ca (mg/dl) 136.00-145.00 3.50-5.10 98.00-107.00 21.00-32.00 8.50-10.10 144 4.2 116 20.4 7 PT (sec) PTT (sec) INR (PTT:PT) 9.80-11.60 24.30-30.10 0.90-1.10 12.3 44.8 1.1 Troponin I (ng/ml) Troponin T (ng/ml) CPK (u/l) CPK-MB (ng/ML) 0.02-0.05 0.40-2.10 26.00-308.00 0.50-3.60 0.43 1.05 51 Not Drawn Medication Medication Total Dose (Bolus/Oral) Medication Total Dosage/Unit 1% XYLOCAINE 20 mL BENADRYL 50 mg CLOPIDOGREL 600 mg HEPARIN 2400 units LABETOLOL 40 mg VERSED 1 mg Medications (Bolus/Oral) Medication Time Given Dosage/Unit Administered By Reason BENADRYL 05/22/2017 9:47:00 AM 50 mg Michelle Cerrato 50 mg BENADRYL given in lab by Michelle Cerrato RN via Peripheral IV. Ordered by Chepe Moody. 1% XYLOCAINE 05/22/2017 9:57:17 AM 20 mL Chepe Moody 20 mL 1% XYLOCAINE given in lab by Chepe Moody in Right Groin via Subcutaneous. Ordered by Chepe Vu ms. VERSED 05/22/2017 9:58:55 AM 1 mg Chepe Moody 1 mg VERSED given in lab by Chepe Moody via Peripheral IV. Ordered by Chepe Moody. LABETOLOL 05/22/2017 10:03:34 AM 20 mg Michelle Cerrato 20 mg LABETOLOL given in lab by Michelle Cerrato RN via Peripheral IV. Ordered by Chepe Moody. HEPARIN 05/22/2017 10:09:17 AM 2400 units Michelle Cerrato 2400 units HEPARIN given in lab by Michelle Cerrato RN via Peripheral IV. Ordered by Christopher Moody LABETOLOL 05/22/2017 10:20:28 AM 20 mg Michelle Cerrato 20 mg LABETOLOL given in lab by Michelle Cerrato RN in Right Forearm via Peripheral IV. Ordered by Chepe Moody. CLOPIDOGREL 05/22/2017 10:30:30 AM 600 mg Michelle Cerrato 600 mg CLOPIDOGREL given in lab by Michelle Cerrato RN via Oral. Ordered by Chepe Moody. Initial Case Assessment Cardiovascular HR Rhythm NIBP Chest Pain 75 regular 169/85 0 Edema Present Skin color Skin None Pale Warm Dry Circulatory - Right Pulses Dorsalis Pedis Posterior Tibial Femoral 1 1 2 Scale (0,1,2,3,4,d) Circulatory - Left Pulses Dorsalis Pedis Posterior Tibial Femoral 1 1 2 Scale (0,1,2,3,4,d) Circulatory - Lower Extremities Color Lower Right Color Lower Left Pale Pale Neurological State Oriented to time-place- Alert Moves all extremities person Respiration - General Respiration Rate SpO2 (%) (B/min) 12 98 Final Case Assessment Cardiovascular HR Rhythm NIBP Chest Pain 50 regular 166/133 0 Edema Present Skin color Skin None Pale Warm Dry Circulatory - Right Pulses Dorsalis Pedis Posterior Tibial Femoral 1 1 2 Scale (0,1,2,3,4,d) Circulatory - Left Pulses Dorsalis Pedis Posterior Tibial Femoral 1 1 2 Scale (0,1,2,3,4,d) Circulatory - Lower Extremities Color Lower Right Color Lower Left Pale Pale Neurological State Oriented to time-place- Alert Moves all extremities person Respiration - General Respiration Rate SpO2 (%) (B/min) 18 95 Chronological Log Time Study Chronological Log 9:33:46 Patient arrived via Bed. 9:33:47 Patient Name, D.O.B, / Armband Verified By R.N. 9:33:48 Consent signed by the physician and the patient and verified by the Plating Technician staff. 9:33:49 Pre-op and post- op instructions given; patient acknowledges understanding of instructions. 9:33:49 Verbal Stimulation=2 Physical Stimulation=2 Airway=2 Respiration=2 TOTAL=8. (0=absent, 1=li mited, 2=present) 9:33:55 Pt premedicated for contrast allergy with prednisone and Benadryl per Dr Moody Vitals capture started with the following parameters, Patient=Adult, Interval=5 min, Initial Pr lpantm=037 mmHg, 9:39:17 Deflation Rate=5 mmHg 9:39:49 HR=75 bpm, JFSL=347/85 mmhg, SpO2=97.0 %, Resp=12 B/min, Pain=0, Mina=2 9:39:49 Presedation assessment performed by Elijah Cerrato, Plating Technician RN. 9:39:59 Patient has been NPO for More than 6Hrs. 9:40:01 Skin Breakdown-none per pt 9:40:09 Patient Warmer Placed on the Table. 9:40:10 Disposable Defibrillator Pads Placed On Patient. 9:40:10 Meli Prominences Protected 9:40:15 A # 20 IV was noted in the Forearm (right). Grade = 0 0.9NS infusing at KVO 9:40:20 History and physical on the chart or being dictated. Assessment: Initial Case, HR=75 BPM, Rhythm=regular, NRDN=527/85 mmhg, Chest Pain=0, Edema=None , Color=Pale, Skin = Warm, Dry Right Pulses: Man Ped=1, Post Tib=1, Femoral=2 Left Pulses: Man Ped=1, Post Tib=1, Femoral=2 9:40:24 Lower Right Extremities: Color=Pale Lower Left Extremities: Color=Pale Neurological: State=Alert, Ox3, RODRIGUEZ Respiration: Resp=12 B/min, SpO2=98 % 9:44:54 HR=70 bpm, GCHE=442/76 mmhg, SpO2=98.0 %, Resp=14 B/min, Pain=0, Mina=2 9:45:20 Reference ECG taken 9:47:00 50 mg BENADRYL given in lab by Michelle Cerrato, RN via Peripheral IV. Ordered by Chepe Moody. 9:49:53 HR=69 bpm, KOSS=360/105 mmhg, SpO2=96 %, Resp=14 B/min, Pain=0, Mina=2 9:50:15 MD arrived. 9:50:22 Bilateral groins prepped with 2% chlorhexidine, and with a 3 min. waiting time. 9:54:52 HR=69 bpm, TKTY=195/87 mmhg, SpO2=95 %, Resp=13 B/min, Pain=0, Mina=2 Time Out. Correct patient, correct procedure,correct physician, ,power injector loaded or not l oaded with contrast with 9:56:52 surgical team present. Time Out Concurred by , individual staff in procedure 9:57:08 Case Start 9:57:17 20 mL 1% XYLOCAINE given in lab by Chepe Moody in Right Groin via Subcutaneous. Ordered by Chepe Moody. 9:58:07 Pressure channel 1 zeroed. 9:58:55 1 mg VERSED given in lab by Chepe Moody via Peripheral IV. Ordered by Chepe Moody. 9:59:50 Access site was Right Femoral Artery. 9:59:58 HR=66 bpm, SBRZ=578/81 mmhg, SpO2=98.0 %, Resp=16 B/min, Pain=0, Mina=2 9:59:59 A SHEATH, FR6.5 PRELUDE 11CM FR 6.5 was advanced into the Fem Art (right) using the Modified Seldinger technique. A JL 4.0 INFINITI CATHETER FR 6 was advanced over a wire. OMNIPAQUE, 350 MG, 150ML 150ML was us ed for 10:00:58 injections. Recorded Pressure: Ao, HR=67, Condition=Condition 1 10:01:31 (Aorta) Ao 176/68/110 10:01:57 The LCA was injected and visualized at various angles. OMNIPAQUE, 350 MG, 150ML 150ML used . 10:03:34 20 mg LABETOLOL given in lab by Michelle Cerrato RN via Peripheral IV. Ordered by Chepe Barfield. 10:04:59 HR=64 bpm, KJVI=530/66 mmhg, SpO2=96.0 %, Resp=18 B/min, Pain=0, Mina=2 10:05:45 Catheter was removed A JR 4.0 INFINITI CATHETER FR 6 was advanced over a wire. OMNIPAQUE, 350 MG, 150ML 150ML was us ed for 10:05:59 injections. 10:07:08 The RCA was injected and visualized at various angles. OMNIPAQUE, 350 MG, 150ML 150ML used . 10:07:14 OMNIPAQUE, 350 MG, 150ML 150ML and 30 JEFERSON INDEFLATOR added. 10:07:41 Catheter was removed 10:09:17 2400 units HEPARIN given in lab by Michelle Cerrato RN via Peripheral IV. Ordered by Chepe Grigsby. 10:09:53 HR=64 bpm, CYYL=587/71 mmhg, SpO2=94.0 %, Resp=18 B/min, Pain=0, Mina=2 A JR 4.0 GUIDE CATHETER FR 6 was advanced over a wire. OMNIPAQUE, 350 MG, 150ML 150ML was used for 10:10:46 injections. 10:12:37 The RCA was injected and visualized at various angles. OMNIPAQUE, 350 MG, 150ML 150ML used . 10:12:52 A WIRE, ASAHI PROWATER 180CM 180CM was inserted via Fem Art (right). An STENT, 3.5 26 INTEGRITY 3.5 26 Bare Metal Stent was inserted through a JR 4.0 GUIDE CATHETER FR 6 over a 10:13:40 WIRE, ASAHI PROWATER 180CM 180CM. 10:14:20 Activated Clotting Time Drawn 10:14:50 HR=66 bpm, INFD=811/85 mmhg, SpO2=95.0 %, Resp=17 B/min, Pain=0, Mina=2 10:15:27 Stent not deployed. Stent removed and intact. 10:16:20 A BALLOON, 2.5 X 20MM EUPHORA 20MM was inserted over WIRE, ASAHI PROWATER 180CM 180CM via t he RCA Mid. A BALLOON, 2.5 X 20MM EUPHORA 20MM over a WIRE, ASAHI PROWATER 180CM 180CM in the RCA Mid was i nflated 10:17:37 using a 30 JEFERSON INDEFLATOR at 16 jeferson for 15 sec. 10:18:45 ACT (Normal Range 90-180) = 238 An STENT, 3.5 26 INTEGRITY 3.5 26 Bare Metal Stent was inserted through a JR 4.0 GUIDE CATHETER FR 6 over a 10:19:50 WIRE, ASAHI PROWATER 180CM 180CM. 10:19:51 HR=66 bpm, PSUU=396/133 mmhg, SpO2=95.0 %, Resp=20 B/min, Pain=0, Mina=2 A STENT, 3.5 26 INTEGRITY 3.5 26 was deployed using a 30 JEFERSON INDEFLATOR at 12 atmospheres for 1 5 seconds in 10:20:06 the RCA Mid. 20 mg LABETOLOL given in lab by Michelle Cerrato, RN in Right Forearm via Peripheral IV. Order ed by Fransisco, 10:20:28 Chepe. 10:21:07 Delivery device removed 10:21:35 Wire removed 10:21:36 Catheter was removed 10:22:04 PCI QA obtained from [employer] 10:23:17 Sheath(s) left in place, will be removed in Holding Area 10:23:18 In the Fem Art (right) the SHEATH, FR6.5 PRELUDE 11CM FR 6.[address] by Chepe Vu ms. 10:23:31 Case End Assessment: Final Case, HR=50 BPM, Rhythm=regular, MSMC=532/133 mmhg, Chest Pain=0, Edema=None, Color=Pale, Skin = Warm, Dry Right Pulses: Man Ped=1, Post Tib=1, Femoral=2 Left Pulses: Man Ped=1, Post Tib=1, Femoral=2 10:23:41 Lower Right Extremities: Color=Pale Lower Left Extremities: Color=Pale Neurological: State=Alert, Ox3, RODRIGUEZ Respiration: Resp=18 B/min, SpO2=95 % 10:24:32 DOCU called. Spoke to YESENIA Palacios 10:24:54 Contrast Scanned 10:24:57 HR=51 bpm, QVWB=987/88 mmhg, SpO2=95.0 %, Resp=18 B/min, Pain=0, Mina=2 10:25:01 No case complications noted. 10:25:02 Cine recording checked. 10:25:22 Bedside Report will be given. 10:26:07 A Left Heart Cath was performed. 10:30:00 Vitals capture stopped. 10:30:30 600 mg CLOPIDOGREL given in lab by Michelle Cerrato RN via Oral. Ordered by Rodrigue Moody. 10:31:21 Defibrillator and ground pads removed. Skin intact. 10:32:07 Patient moved to stretcher End Study - Contrast Media Used In Study Contrast Total Opened (mL) Total Used (mL) Total Wasted (mL) Omnipaque 150 90 60 End Study - Maximum Contrast Load Max Contrast Load (mL) 181.3 End Study - Radiation Exposure Fluoro Time (minutes) 4.3 End Study - Patient Disposition Complications Transferred To Interventional Outcome No Telemetry Bed successful
--- NOTE | 2017-05-22 11:39 | MA ---
cc: ELKE QUINONEZ MD DATE: 05/22/2017 The patient was prepped and draped in usual fashion. A 6 sheath was inserted percutaneously in the right femoral artery. Coronary angiography was done with Clarisa preformed catheters. RESULTS Initial aorta pressure was 180/90. She is given a total 40 mg of labetalol with a end pressure of 145/88. CORONARY ARTERIOGRAPHY Left main coronary was normal. Left anterior descending artery demonstrates mild luminal irregularities but otherwise was normal throughout its course. Left circumflex artery arose from the left main and was normal throughout its course. The right coronary was anatomically dominant. A long complex stenosis compromised the lumen by approximately 75-80%, was present in the midportion of the artery. The distal artery is free from disease. This is felt to be a culprit artery for the patient's NSTEMI. A R-4 guide was used and [employer] wire advanced into the distal right coronary. Primary stenting was unable to be accomplished due to failure to pass the stent across the distal portion of the lesion. Dilatation with a 2.5 x 20 mm balloon was accomplished and the stent was able to be deployed without significant problems. A 3.5 x 26 mm bare metal stent was deployed with post-dilatation to 12 atmospheres. This resulted in very good cosmetic result with essentially zero residual, no dissection was present. TI-III flow was present both pre and post procedure. The equipment was then withdrawn and the sheath was sutured into place. CONCLUSION Successful PTCA and stenting of the right coronary artery. MD PUSHPA Thompson/ANSHULL /10:36 AM /11:34 AM
[2017-05-22] MEDS: hydrALAZINE HCL 20 MG/ML VIAL IV PUSH PRN (14:07)
[2017-05-22] MEDS: SODIUM CHLOR 0.9% 1000 ML INJ 1,000 ML IV SCH ×2 (14:31→20:27)
[2017-05-22 20:27] LABS: PROTHROMBIN TIME - PATIENT 11.6 SEC (9.8-11.6)
[2017-05-22] MEDS: MIRTAZAPINE 15 MG TAB PO SCH (21:08)
[2017-05-23] VITALS (9 sets, daily range): BP systolic 171–191; BP diastolic 76–95; PULSE 60–80; RESP 16; TEMP 97.8–98.3; O2SAT 96–98
[2017-05-23] MEDS: CHLORHEXIDINE GLUCONATE 2 % 1 PACK (2 CLOTHS) TOP SCH (04:00)
[2017-05-23] MEDS: INSULIN NovoLIN REGULAR SUPPLEMENTAL SCALE SQ SCH ×3 (05:53→12:00)
[2017-05-23 06:18] LABS: INTERNATIONAL NORMALIZED RATIO 1.1 RATIO; PROTHROMBIN TIME - PATIENT 12.1 SEC (9.8-11.6)
[2017-05-23 06:25] LABS: AUTOMATED NEUTROPHIL # 7.4 TH/MM3 (1.8-7.7); BASOPHIL % 0.1 % (0.0-2.0); HEMATOCRIT 29.2 % (35.0-46.0); HEMO FLAGS DIFF FINAL; MEAN CELL VOLUME 90.5 FL (80.0-100.0); MEAN CORPUSCULAR HEMOGLOBIN 30.7 PG (27.0-34.0); MEAN CORPUSCULAR HGB CONC 33.9 % (32.0-36.0); MONO % 5.8 % (0.0-8.0); NEUT % 83.1 % (16.0-70.0); PLATELET COUNT 322 TH/MM3 (150-450); RED BLOOD COUNT 3.22 MIL/MM3 (4.00-5.30); RED CELL DISTRIBUTION WIDTH 15.8 % (11.6-17.2); WHITE BLOOD COUNT 8.9 TH/MM3 (4.0-11.0)
[2017-05-23 06:48] LABS: BICARBONATE 18.8 MEQ/L (21.0-32.0); HDL CHOLESTEROL 73.6 MG/DL (40.0-60.0); POTASSIUM 4.3 MEQ/L (3.5-5.1)
[2017-05-23] MEDS: METOPROLOL TARTRATE 50 MG TAB PO SCH (08:37)
[2017-05-23] MEDS: SERTRALINE HCL 50 MG TAB PO SCH (08:37)
[2017-05-23] MEDS: PANTOPRAZOLE SODIUM 40 MG VIAL IV SCH (08:37)
[2017-05-23] MEDS: DOCUSATE SODIUM 50 MG/SENNA 8.6 MG TAB PO SCH (08:37)
[2017-05-23] MEDS: ASPIRIN EC 81 MG TABEC PO SCH (08:37)
[2017-05-23] MEDS: NIFEdipine 30 MG SUSTAINED RELEASE TAB PO SCH (08:37)
[2017-05-23] MEDS: HYDROXYCHLOROQUINE SULFATE 200 MG TAB PO SCH (08:38)
[2017-05-23] MEDS ORDERED: CLOPIDOGREL 75 MG TAB PO SCH (09:00)
[2017-05-23] MEDS: predniSONE 20 MG TAB PO SCH (09:00)
[2017-05-23] MEDS: hydrOXYzine HCL 25 MG TAB PO SCH ×2 (09:00→12:19)
--- NOTE | 2017-05-23 10:45 | HHI.PR ---
Subjective Remarks doing ok. eager for d/c Objective Vitals heart reg lung cta abd s/nt ext no edema Vital Signs Date Time Temp Pulse Resp B/P Pulse Ox O2 Delivery O2 Flow Rate FiO2 05/23/17 06:00 65 05/23/17 05:00 67 05/23/17 04:00 80 05/23/17 03:00 98.3 72 16 171/76 96 05/23/17 03:00 60 05/23/17 02:00 60 05/23/17 01:00 60 05/23/17 00:00 66 05/22/17 23:00 97.9 68 16 171/76 96 05/22/17 23:00 60 05/22/17 22:00 58 05/22/17 21:00 64 05/22/17 20:00 68 05/22/17 19:00 70 05/22/17 19:00 98.6 70 18 158/72 95 05/22/17 19:00 95 Room Air 05/22/17 18:02 77 05/22/17 17:00 70 05/22/17 16:00 63 05/22/17 15:00 65 05/22/17 15:00 98.7 61 20 152/72 98 05/22/17 14:00 68 05/22/17 13:40 99 Room Air 05/22/17 13:00 99.0 80 19 165/77 92 05/22/17 13:00 92 Room Air 05/22/17 05/22/17 05/23/17 15:00 23:00 07:00 Intake Total 160 ml 240 ml Output Total 950 ml Balance 160 ml -710 ml Intake Oral 240 ml IV Total 160 ml Output Urine Total 950 ml # Voids 2 Result Diagram: 05/23/17 0600 05/23/17 0600 Imaging Last Impressions Lower Extremity Ultrasound 05/18/17 0000 Signed Impressions: Service Date/Time: April 08:49 - CONCLUSION: 1. Occlusive and nonocclusive deep venous thrombosis in the right superficial femoral vein and right popliteal vein. Negative left lower extremity. Manjit Layton MD Chest X-Ray 05/18/17 0000 Signed Impressions: Service Date/Time: April 08:19 - CONCLUSION: 1. Slight improvement in bilateral airspace disease and edema since May 17. Small effusions remain. Borderline cardiomegaly. Manjit Layton MD A/P Problem List: (1) Respiratory distress Status: Acute Plan: - Pt is a 71 y/o female with history of DVT of her right lower extremity on Coumadin, questionable COPD, CAD, PVD, HTN and an active smoker who presented with shortness of breath associated with chest pain. - Upon [facility] arrival the patient had O2 saturation of 82% on room air and systolic blood pressure in the 200s. - She was given breathing treatment along with sublingual nitroglycerin x1, Lasix 40 mg IV x1 and placed on C-PAP en route to the ED. - In the ED, she was chest pain-free and a STEMI alert was called, however, the patient was NOT felt to be a candidate for any cardiac catheterization at that time. - Her EKG showed sinus rhythm with a rate of 99 beats per minute and marked left axis deviation with left bundle branch block. - She was placed on BiPAP and her ABG showed a pH of 7.35, CO2 42, pAO2 121, bicarb 22 and saturation 96%. - BNP elevated at 708 and troponin increased from 0.03-->0.43-->1.05-->1.22--> 0.95. - CXR in the ED showed right lower lobe airspace disease which may reflect aspiration pneumonia. - She was admitted to the ICU under the care of the intensivists. - Pt received Aztreonam (05/17 - 05/20/17) and Azithromycin (05/17 -05/20/17) - She was given Solu-Medrol 125mg IV in the ED and continued on Solu-Medrol 40mg Q8H, changed to PO prednisone - Patient was able to be weaned off oxygen to RA on 05/18 - 2D echo (05/17) --> EF 45-50%, LA is [id number] dilated, RA mild-to- moderately dilated, mild mitral valve regurg, aortic valve sclerosis, mild tricuspid regurg, moderate pulmonary HTN (60-70mmHg) - Pt is on Metoprolol 50mg Q12H and ASA 81mg po daily - PT LHC 05/22 85% rca dz s/p bms. dc home today on asa/plavix/coumadin....discussed with dr Moody who will stop the plavix in 30days. has allergy to statin. (2) CAD (coronary artery disease) Status: Chronic Plan: - Pt with previously reported hx of CAD and NH but no previous stenting to the coronary arteries -see above (3) HTN (hypertension) Status: Acute Plan: - meds adjusted. (4) Pneumonia Status: Acute Plan: - See above (5) Elevated troponin Status: Acute Plan: - See above (6) Hx of deep venous thrombosis Status: Chronic Plan: - Pt with hx of RLE DVT and has had IVC filter placed previously - [facility] (05/18) --> Occlusive and nonocclusive deep venous thrombosis in the right superficial femoral vein and right popliteal vein. Negative left lower extremity. - Coumadin has been on hold (7) PAD (peripheral artery disease) Status: Chronic Plan: - Pt has had previous stenting to the RLE (8) Rheumatoid arthritis Status: Chronic Plan: - Home meds resumed (9) CKD (chronic kidney disease) stage 3, GFR 30-59 ml/min Status: Chronic Problem Qualifiers (1) HTN (hypertension): Qualified Code: I10 - Essential hypertension (2) Pneumonia: Qualified Code: J18.1 - Pneumonia of right lower lobe due to infectious organism Giovany Wiseman MD May 23, 2017 10:45
[2017-05-23] MEDS ORDERED: METO-309 PO (10:48)
[2017-05-23] MEDS ORDERED: PLAV75TA29 PO (10:48)
[2017-05-23] MEDS ORDERED: NIFE60TA58 PO (10:48)
[2017-05-23] MEDS ORDERED: ASPI81TA81 PO (10:50)
[2017-05-23] MEDS ORDERED: PRED10 PO (10:51)
--- NOTE | 2017-05-23 10:52 | HHI.DCPOC ---
Discharge Care Plan Diagnosis: (1) Respiratory distress (2) CAD (coronary artery disease) (3) Pneumonia (4) Hx of deep venous thrombosis (5) HTN (hypertension) (6) Rheumatoid arthritis Goals to Promote Your Health * To prevent worsening of your condition and complications * To maintain your health at the optimal level Directions to Meet Your Goals Take your medications as prescribed Follow your dietary instruction Follow activity as directed Keep your appointments as scheduled Take your immunizations and boosters as scheduled If your symptoms worsen call your PCP, if no PCP go to Urgent Care Center or Emergency Room Smoking is Dangerous to Your Health. Avoid second hand smoke Call the 24-hour hour crisis hotline for domestic abuse at Giovany Wiseman MD May 23, 2017 10:51
--- NOTE | 2017-05-25 13:47 | HHI.DS ---
Discharge Summary Admission Date May 17, 2017 at 08:26 Discharge Date: May 23, 2017 Admitting Diagnosis hypoxic respiratory failure (1) Respiratory distress Diagnosis: Principal (2) CAD (coronary artery disease) Diagnosis: Principal (3) HTN (hypertension) Diagnosis: Principal (4) Pneumonia Diagnosis: Principal (5) Elevated troponin Diagnosis: Principal (6) Hx of deep venous thrombosis (7) PAD (peripheral artery disease) Diagnosis: Secondary (8) Rheumatoid arthritis Diagnosis: Secondary (9) CKD (chronic kidney disease) stage 3, GFR 30-59 ml/min Diagnosis: Secondary CBC/BMP: 05/23/17 0600 05/23/17 0600 Significant Findings Laboratory Tests Test 05/23/17 06:00 Red Blood Count 3.22 MIL/MM3 (4.00-5.30) Hemoglobin 9.9 GM/DL (11.6-15.3) Hematocrit 29.2 % (35.0-46.0) Mean Platelet Volume 6.7 FL (7.0-11.0) Neutrophils (%) (Auto) 83.1 % (16.0-70.0) Prothrombin Time 12.1 SEC (9.8-11.6) Sodium Level 150 MEQ/L (136-145) Chloride Level 121 MEQ/L (98-107) Carbon Dioxide Level 18.8 MEQ/L (21.0-32.0) Blood Urea Nitrogen 40 MG/DL (7-18) Creatinine 1.35 MG/DL (0.50-1.00) Estimat Glomerular Filtration 39 ML/MIN (>89) Rate Calcium Level 8.1 MG/DL (8.5-10.1) HDL Cholesterol 73.6 MG/DL (40.0-60.0) Hospital Course - Pt is a 71 y/o female with history of DVT of her right lower extremity on Coumadin, questionable COPD, CAD, PVD, HTN and an active smoker who presented with shortness of breath associated with chest pain. - Upon [facility] arrival the patient had O2 saturation of 82% on room air and systolic blood pressure in the 200s. - She was given breathing treatment along with sublingual nitroglycerin x1, Lasix 40 mg IV x1 and placed on C-PAP en route to the ED. - In the ED, she was chest pain-free and a STEMI alert was called, however, the patient was NOT felt to be a candidate for any cardiac catheterization at that time. - Her EKG showed sinus rhythm with a rate of 99 beats per minute and marked left axis deviation with left bundle branch block. - She was placed on BiPAP and her ABG showed a pH of 7.35, CO2 42, pAO2 121, bicarb 22 and saturation 96%. - BNP elevated at 708 and troponin increased from 0.03-->0.43-->1.05-->1.22--> 0.95. - CXR in the ED showed right lower lobe airspace disease which may reflect aspiration pneumonia. - She was admitted to the ICU under the care of the intensivists. - Pt received Aztreonam (05/17 - 05/20/17) and Azithromycin (05/17 -05/20/17) - She was given Solu-Medrol 125mg IV in the ED and continued on Solu-Medrol 40mg Q8H, changed to PO prednisone - Patient was able to be weaned off oxygen to RA on 05/18 - 2D echo (05/17) --> EF 45-50%, LA is [id number] dilated, RA mild-to- moderately dilated, mild mitral valve regurg, aortic valve sclerosis, mild tricuspid regurg, moderate pulmonary HTN (60-70mmHg) - Pt is on Metoprolol 50mg Q12H and ASA 81mg po daily - PT LHC 05/22 85% rca dz s/p bms. dc home today on asa/plavix/coumadin....discussed with dr Moody who will stop the plavix in 30days. has allergy to statin. Pt Condition on Discharge: Stable Discharge Disposition: Discharge Home Discharge Instructions DIET: Follow Instructions for: Heart Healthy Diet Activities you can perform: Regular-No Restrictions Follow up Referrals: Cardiology - [address] sharon moody PCP Follow-up - 1 Week New Medications: Nifedipine ER 24 HR (Nifedipine ER 24 HR) 60 Mg Tab 60 MG PO DAILY htn #30 Ref 3 TAB Prednisone (Prednisone) 10 Mg Tab 10 MG PO DIRECTED 20mg po daily x 3 days, 10mg po daily x 4 days Shortness of Breath Days 7 Ref 0 TAB Clopidogrel (Plavix) 75 Mg Tab 75 MG PO DAILY stent #30 TAB Metoprolol Tartrate (Lopressor) 50 Mg Tab 50 MG PO Q12HR cad #60 Ref 3 TAB Continued Medications: Aspirin (Aspir-81) 81 Mg Tabdr 81 MG PO DAILY cad #0 TAB Cholecalciferol (Vitamin D-3) 2,000 Unit Tab Ferrous Sulfate (Iron High-Potency) 325 Mg Tab Hydroxychloroquine (Plaquenil) 200 Mg Tab 200 MG PO DAILY Take with food #30 Ref 0 TAB Hydroxyzine HCl (Hydroxyzine HCl) 25 Mg Tab 25 MG PO DAILY Ref 0 TAB Mirtazapine (Mirtazapine) 30 Mg Tab 30 MG PO HS Depression Control #30 Ref 0 TAB Multiple Vitamins W/ Minerals (Multi For Her) 1 Tab Tab Sertraline (Sertraline) 50 Mg Tab 50 MG PO DAILY #30 Ref 0 TAB Warfarin (Coumadin) 5 Mg Tab 5 MG PO DAILY Blood Clot Prevention #30 Ref 0 TAB Giovany Wiseman MD May 25, 2017 13:47
--- NOTE | 2017-05-25 14:38 | PQ ---
Physician Query Response Document PATIENT: MO YATES : 1945 ADMIT DATE: 05/17/2017 8:26 AM DISCH DATE: 05/23/2017 1:46 PM RESPONDING PROVIDER #: Rbraithw QUERY TEXT: Clarification of Clinical Diagnostic Findings Please clarify documentation or clinical relevance for the clinical / diagnostic findings or whether those are insignificant or unable to be further specified. NSTEMI STEMI CAD WITH ANGINA CHEST PAIN, NONCARDIAC, DC RULED OUT OTHER MORE APPROPRIATE DIAGNOSIS: The patient's Clinical Indicators include: STEMI ALERT CALLED IN ED: ED RECORD, H A LONG COMPLEX STENOSIS COMPROMISED THE LUMEN OF RIGHT CORONARY ARTERY, FELT TO BE CULPRIT OF PATIENT 'S NSTEMI: PTCA REPORT (PTCA WITH STENT TO LESION). CHEST PAIN: ED RECORD SERIAL TROPONIN: 0.3, 0.43, 1.05, 1.22, 0.95: 05/17-05/18/17 SEVERAL ABNORMAL EKGs DC IS NOT LISTED IN DIAGNOSES,NOR CONFIRMED BY ATTENDING. Query created by: Yuli Kamara on 05/24/2017 11:02 AM RESPONSE TEXT: Pt had nstemi and required bms per cardiology. The right coronary was the culprit. Electronically signed by: Giovany Wiseman MD 05/25/2017 2:34 PM
== END 2017-05-23 13:46 | disposition home or self-care (01) | DRG 248 ==
LOC: NEPE 06:36 → NEDA 08:26 → HIME 11:15 → N04A 05-19 14:11 → HCIS 05-22 10:42
PROVIDERS: ADMIT Hospitalist; ATTEND Hospitalist
PROC: 5A09357 Assistance with Respiratory Ventilation, Less than 24 Consecutive Hours, Continuous Positive Airway Pressure (ICD-10-PCS; 2017-05-17)
PROC: B2111ZZ Fluoroscopy of Multiple Coronary Arteries using Low Osmolar Contrast (ICD-10-PCS; 2017-05-22)
PROC: 02703DZ Dilation of Coronary Artery, One Artery with Intraluminal Device, Percutaneous Approach (ICD-10-PCS; principal; 2017-05-22 10:00)
DX: I21.4 Non-ST elevation (NSTEMI) myocardial infarction (principal); J96.01 Acute respiratory failure with hypoxia; J18.9 Pneumonia, unspecified organism; R64 Cachexia; I82.411 Acute embolism and thrombosis of right femoral vein; I27.2 Other secondary pulmonary hypertension; D63.8 Anemia in other chronic diseases classified elsewhere; N18.3 Chronic kidney disease, stage 3 (moderate); J44.0 Chronic obstructive pulmonary disease with (acute) lower respiratory infection; I08.3 Combined rheumatic disorders of mitral, aortic and tricuspid valves; J44.1 Chronic obstructive pulmonary disease with (acute) exacerbation; Z68.1 Body mass index [BMI] 19.9 or less, adult; I82.431 Acute embolism and thrombosis of right popliteal vein; I44.7 Left bundle-branch block, unspecified; I10 Essential (primary) hypertension; I25.10 Atherosclerotic heart disease of native coronary artery without angina pectoris; I73.9 Peripheral vascular disease, unspecified; I25.2 Old myocardial infarction; I12.9 Hypertensive chronic kidney disease with stage 1 through stage 4 chronic kidney disease, or unspecified chronic kidney disease; M19.90 Unspecified osteoarthritis, unspecified site; M06.9 Rheumatoid arthritis, unspecified; F17.210 Nicotine dependence, cigarettes, uncomplicated; Z79.01 Long term (current) use of anticoagulants; Z86.718 Personal history of other venous thrombosis and embolism; Z88.1 Allergy status to other antibiotic agents; Z91.041 Radiographic dye allergy status
CPT/HCPCS: 36430; 36600; 51702; 71010; 76937; 80048; 80053; 80061; 82310; 82435; 82550; 82565; 82805; 82947; 82948; 83605; 83735; 83880; 84100; 84132; 84155; 84295; 84443; 84484; 84520; 85002; 85014; 85018; 85025; 85347; 85610; 85730; 86850; 86900; 86901; 86920; 87040; 87449; 87641; 92928; 93005; 93306; 93454; 93970; 94002; 94640; 94664; 96365; C1725; C1769; C1876; C1887; C1893; C9113; J0360; J0456; J1200; J1644; J1956; J2060; J2250; J2920; J2930; J3480; J7030; J7050; J7512; P9016; Q9967

== ENCOUNTER 2017-07-09 08:45 | Inpatient (IN) | payer MEDICARE ==
[2017-07-09] VITALS (37 sets, daily range): BP systolic 125–201; BP diastolic 59–91; PULSE 65–97; RESP 16–26; TEMP 97.4–99; O2SAT 97–100
[~2017-07-09] VITALS: Ht 152.4 cm; Wt 42.4 kg
[~2017-07-09 08:45] MED LIST: ASPI81TA81 PO; CHOL1TAB42; COUM5TAB PO; FERR1TAB52; HYDR-3133 PO; METO-309 PO; MIRT30TA PO; MULTTAB24; NIFE60TA58 PO; PLAQ200T PO; PLAV75TA29 PO; PRED10 PO; SERT-132 PO
[2017-07-09] MEDS ORDERED: FUROSEMIDE 40 MG/4 ML VIAL IVP ONE (09:00)
[2017-07-09] MEDS ORDERED: NITROGLYCERIN-D5W 50 MG/250 ML 250 ML IV SCH (09:00)
[2017-07-09] MEDS ORDERED: SODIUM CHLORIDE 0.9% FLUSH 10 ML FLUSH IVF PRN (09:00)
[2017-07-09 09:25] LABS: AUTOMATED NEUTROPHIL # 6.3 TH/MM3 (1.8-7.7); BASOPHIL # 0.1 TH/MM3 (0-0.2); EOSINOPHIL # 0.2 TH/MM3 (0-0.4); EOSINOPHIL % 2.9 % (0.0-4.0); HEMATOCRIT 26.6 % (35.0-46.0); HEMO FLAGS DIFF FINAL; LYMPH % 17.6 % (9.0-44.0); LYMPHOCYTE # 1.5 TH/MM3 (1.0-4.8); MEAN CELL VOLUME 93.2 FL (80.0-100.0); MEAN CORPUSCULAR HEMOGLOBIN 31.1 PG (27.0-34.0); MEAN CORPUSCULAR HGB CONC 33.3 % (32.0-36.0); MONO % 5.9 % (0.0-8.0); NEUT % 72.6 % (16.0-70.0); PLATELET COUNT 356 TH/MM3 (150-450); RED BLOOD COUNT 2.85 MIL/MM3 (4.00-5.30); RED CELL DISTRIBUTION WIDTH 15.9 % (11.6-17.2); WHITE BLOOD COUNT 8.6 TH/MM3 (4.0-11.0)
--- NOTE | 2017-07-09 09:25 | PD ---
HPI Chief Complaint: Respiratory Symptoms Time Seen by Provider: 08:55 Travel History International Travel<30 days: No Contact w/Intl Traveler<30days: No Traveled to known affect area: No History of Present Illness HPI This 71-year-old woman who presents to the emergency Department with shortness of breath. History is limited as is obtained almost entirely from EMS. Therefore she had the abrupt onset of shortness of breath this morning. She is a history of heart disease. They found her with hypertension, blood pressure 236/100, with shortness of breath and hypoxia, room air saturations in the 70s. She significant improvement was C Pap. Denies any chest pain no nausea vomiting. Patient denies any chest pain at this time. States she feels better with the BiPAP mask. Denies any recent illness or injury. Review of her crutches patient was recently admitted for similar symptoms, hypoxic respiratory failure with hypertension. She had a left heart Of 85% RCA disease status post bare metal stent on May 22. She remains on Coumadin for previous DVT. History Past Medical History Narrative Medical Lupus RA Right lower extremity DVT, on warfarin History kidney stones Questionable COPD History of peripheral vascular disease Hypertension Active tobacco use CAD, status post recent stent Influenza Vaccination: Yes Social History Alcohol Use: No Tobacco Use: Yes (one pack per day) Allergies-Medications (Allergen,Severity, Reaction): Coded Allergies: *MDRO Multi-Drug Resistant Organism (Verified Allergy, Unknown, 07/09/17) MRSA Contrast Media (Verified Allergy, Unknown, 07/09/17) Diflucan (Verified Allergy, Unknown, 07/09/17) Keflex (Verified Allergy, Unknown, 07/09/17) Pravachol (Verified Allergy, Unknown, 07/09/17) Reported Meds & Prescriptions Reported Meds & Active Scripts Active Aspir-81 (Aspirin) 81 Mg Tabdr 81 Mg PO DAILY Lopressor (Metoprolol Tartrate) 50 Mg Tab 50 Mg PO Q12HR Plavix (Clopidogrel Bisulfate) 75 Mg Tab 75 Mg PO DAILY Reported Probiotic (Lactobacillus Acidophilus) 1 Cap Cap 1 Cap PO TIDAC Iron (Ferrous Sulfate) 325 Mg Cap 65 Mg PO TIDPC Lipitor (Atorvastatin Calcium) 20 Mg Tab 20 Mg PO HS Lisinopril 5 Mg Tab 5 Mg PO DAILY Tylenol-Codeine #3 (Acetaminophen-Codeine) 300-30 mg Tab 1 Tab PO Q4H PRN Vitamin D-3 (Cholecalciferol) 2,000 Unit Tab Multi For Her (Multiple Vitamins W/ Minerals) 1 Tab Tab Coumadin (Warfarin) 5 Mg Tab 5 Mg PO DAILY Mirtazapine 30 Mg Tab 30 Mg PO HS Sertraline (Sertraline HCl) 50 Mg Tab 50 Mg PO DAILY Plaquenil (Hydroxychloroquine Sulfate) 200 Mg Tab 200 Mg PO DAILY Take with food Review of Systems Except as stated in HPI: all other systems reviewed are Neg Physical Exam Narrative GENERAL: Thin 71 year-old woman, moderate respiratory distress, on Cipro. SKIN: Focused skin assessment warm/dry. HEAD: Atraumatic. Normocephalic. EYES: Pupils equal and round. No scleral icterus. No injection or drainage. ENT: No nasal bleeding or discharge. Mucous membranes pink and moist. NECK: Trachea midline. No JVD. CARDIOVASCULAR: Regular rate and rhythm. No murmur appreciated. RESPIRATORY: Coarse Rales throughout the posterior lung june. Moderate respiratory distress. On Cipro. GASTROINTESTINAL: Abdomen soft, non-tender, nondistended. Hepatic and splenic margins not palpable. MUSCULOSKELETAL: No obvious deformities. Mild pitting edema both legs. NEURO: Grossly within normal limits. Moves all extremities. Data Data Last Documented VS Vital Signs Date Time Temp Pulse Resp B/P Pulse Ox O2 Delivery O2 Flow Rate FiO2 07/09/17 10:27 192/82 07/09/17 09:41 71 16 100 CPAP 12 07/09/17 08:59 40 Orders Complete Blood Count With Diff (07/09/17 08:56) Comprehensive Metabolic Panel (07/09/17 08:56) B-Type Natriuretic Peptide (07/09/17 08:56) Act Partial Throm Time (Ptt) (07/09/17 08:56) Prothrombin Time / Inr (Pt) (07/09/17 08:56) Magnesium (Mg) (07/09/17 08:56) Troponin I (07/09/17 08:56) Iv Access Insert/Monitor (07/09/17 08:56) Electrocardiogram (07/09/17 08:56) Ecg Monitoring (07/09/17 08:56) Oximetry (07/09/17 08:56) Oxygen Administration (07/09/17 08:56) Chest, Single Ap (07/09/17 08:56) Sodium Chloride 0.9% Flush (Ns Flush) (07/09/17 09:00) Furosemide Inj (Lasix Inj) (07/09/17 09:00) Resp Bipap / Cpap Non Invas Vt (07/09/17 08:56) Nitroglycerin-Dextrose Inj (Nitroglyceri (07/09/17 09:00) Labs Laboratory Tests Test 07/09/17 09:12 White Blood Count 8.6 TH/MM3 Red Blood Count 2.85 MIL/MM3 Hemoglobin 8.9 GM/DL Hematocrit 26.6 % Mean Corpuscular Volume 93.2 FL Mean Corpuscular Hemoglobin 31.1 PG Mean Corpuscular Hemoglobin 33.3 % Concent Red Cell Distribution Width 15.9 % Platelet Count 356 TH/MM3 Mean Platelet Volume 6.1 FL Neutrophils (%) (Auto) 72.6 % Lymphocytes (%) (Auto) 17.6 % Monocytes (%) (Auto) 5.9 % Eosinophils (%) (Auto) 2.9 % Basophils (%) (Auto) 1.0 % Neutrophils # (Auto) 6.3 TH/MM3 Lymphocytes # (Auto) 1.5 TH/MM3 Monocytes # (Auto) 0.5 TH/MM3 Eosinophils # (Auto) 0.2 TH/MM3 Basophils # (Auto) 0.1 TH/MM3 CBC Comment DIFF FINAL Differential Comment Prothrombin Time 19.4 SEC Prothromb Time International 1.7 RATIO Ratio Activated Partial 39.5 SEC Thromboplast Time Sodium Level 135 MEQ/L Potassium Level 3.9 MEQ/L Chloride Level 105 MEQ/L Carbon Dioxide Level 21.3 MEQ/L Anion Gap 9 MEQ/L Blood Urea Nitrogen 28 MG/DL Creatinine 1.32 MG/DL Estimat Glomerular Filtration 40 ML/MIN Rate Random Glucose 131 MG/DL Calcium Level 7.2 MG/DL Protein Corrected Calcium 7.7 MG/DL Magnesium Level 2.1 MG/DL Total Bilirubin 0.2 MG/DL Aspartate Amino Transf 19 U/L (AST/SGOT) Alanine Aminotransferase 24 U/L (ALT/SGPT) Alkaline Phosphatase 114 U/L Troponin I LESS THAN 0.02 NG/ML B-Type Natriuretic Peptide 1611 PG/ML Total Protein 6.1 GM/DL Albumin 2.6 GM/DL MDM Medical Decision Making Medical Screen Exam Complete: Yes Emergency Medical Condition: Yes Interpretation(s) My review of EKG: Normal sinus rhythm at a rate of 92, leftward axis, anteroseptal Q waves, nonspecific lateral ST depressions suggestive of ischemia. Compared to previous EKGs lateral ST depressions or less pronounced. LABS: CBC remarkable for mild anemia. CMP remarkable for mildly elevated BUN/creatinine, mild hypocalcemia Troponin negative BNP 1611 INR 1.7 Chest x-ray: New bilateral perihilar infiltrates most characteristic of pulmonary edema. Differential Diagnosis CHF, acute pulmonary edema, hypertensive crisis, COPD, ACS, other Narrative Course Medical decision-making 71-year-old woman presents emergent from with acute hypoxic respiratory failure or marked hypertension suggestive of acute cardiogenic pulmonary edema. Treated with nitroglycerin, Lasix, BiPAP, reassess. We'll check x-rays, labs, reassess. EKG shows some ischemia, recent bare-metal stent to the RCA. We'll monitor. Critical Care Narrative Aggregate critical care time was 35 minutes. Time to perform other separately billable procedures was not included in the critical care time. My time did not include minutes spent treating any other patients simultaneously or on activities that did not directly contribute to the patient's treatment. The services I provided to this patient were to treat and/or prevent clinically significant deterioration that could result in: , disability, respiratory failure, unrecognized SC, other I provided critical care services requiring my management, as noted below: Chart data review, documentation time, medication orders and management, vital sign assessments/reviewing monitor data, ordering and reviewing lab tests, ordering and interpreting/reviewing x-rays and diagnostic studies, care of the patient and discussion of the patient with the admitting physicians. Diagnosis Primary Impression: Pulmonary edema Qualified Code: J81.0 - Acute pulmonary edema Additional Impression: Heart failure Qualified Code: I50.9 - Acute on chronic heart failure, unspecified heart failure type Alexey Rodney MD Jul 09, 2017 09:25
[2017-07-09 09:34] LABS: APTT (PATIENT) 39.5 SEC (24.3-30.1); INTERNATIONAL NORMALIZED RATIO 1.7 RATIO; PROTHROMBIN TIME - PATIENT 19.4 SEC (9.8-11.6)
[2017-07-09 09:51] LABS: ALKALINE PHOSPHATASE 114 U/L (45-117); ALT (GPT) 24 U/L (10-53); ANION GAP 9 MEQ/L (5-15); AST (GOT) 19 U/L (15-37); BICARBONATE 21.3 MEQ/L (21.0-32.0); BLOOD UREA NITROGEN 28 MG/DL (7-18); CALCIUM-PROTEIN CORRECTED 7.7 MG/DL (8.5-10.1); CHLORIDE 105 MEQ/L (98-107); GLOMERULAR FILTRATION RATE 40 ML/MIN (>89); MAGNESIUM 2.1 MG/DL (1.5-2.5); POTASSIUM 3.9 MEQ/L (3.5-5.1); SODIUM (NA) 135 MEQ/L (136-145); TOTAL BILIRUBIN ADULT 0.2 MG/DL (0.2-1.0)
--- NOTE | 2017-07-09 09:54 | RADRPT ---
EXAM DATE/TIME: 07/09/2017 09:29 [facility] COMPARISON: CHEST SINGLE AP, May 18, 2017, 8:19. INDICATIONS : Short of Breath MEDICAL HISTORY : Peripheral vascular disease. Deep venous thrombosis. Chest pain. MRSA. Anticoagulant therapy, Warfari n. SURGICAL HISTORY : IVC filter. Right leg stents x3. Bilateral femur. Pins in ankle. ENCOUNTER: Initial ACUITY: 1 day PAIN SCORE: 0/10 LOCATION: Bilateral chest FINDINGS: A single AP erect portable view of the chest was obtained and demonstrates no perihilar infiltrates e xtending into the upper and lower lobes. There is no distinct effusion. The heart size is mildly prom inent. Tracheal calcifications are present. There are multiple overlying electrocardiogram leads. CONCLUSION: New bilateral perihilar infiltrates most characteristic of pulmonary edema. Rakesh Staton MD on July 09, 2017 at 9:52 Board Certified Radiologist. This report was verified electronically.
[2017-07-09] MEDS ORDERED: TYLETAB34 PO (09:56)
[2017-07-09] MEDS ORDERED: LISI-519 PO (10:02)
[2017-07-09] MEDS ORDERED: LACTCAP8 PO (10:02)
[2017-07-09] MEDS ORDERED: FERR325C PO (10:02)
[2017-07-09] MEDS ORDERED: LIPI20TA PO (10:02)
[2017-07-09] MEDS ORDERED: ACETAMINOPHEN/CODEINE 300 MG/30 MG TAB PO PRN (10:45)
[2017-07-09] MEDS ORDERED: MORPHINE SULFATE 4 MG/ML INJ IV PRN (11:00)
[2017-07-09] MEDS ORDERED: MISCELLANEOUS NURSING INFORMATION XX SCH (11:00)
[2017-07-09] MEDS ORDERED: RESP: ALBUTEROL 2.5 MG/3 ML NEB (PRN) INH (11:00)
[2017-07-09] MEDS ORDERED: CHLORHEXIDINE GLUCONATE 2 % 1 PACK (2 CLOTHS) TOP PRN (11:00)
[2017-07-09 11:21] LABS: BLOOD GAS CARBOXYHEMOGLOBIN 2.4 % (0-4); BLOOD GAS HCO3 20 mmol/L (22-26); BLOOD GAS METHEMOGLOBIN 0.6 % (0-2); BLOOD GAS O2 HGB SATURATION 96 % (90-100); BLOOD GAS OXYGEN CONTENT 11.3 Vol % (12.0-20.0); BLOOD GAS PCO2 41 mmHg (38-42); BLOOD GAS PO2 153 mmHG (61-120); BLOOD GAS TOTAL HGB 8.1 G/DL (12.0-16.0); CRITICAL VALUE NO; DRAW SITE RT RADIAL; FIO2 40 %; NUMBER OF ARTERIAL PUNCTURES 1; OXYGEN DEVICE BIPAP; STAT YES; TEMP CORR TO 98.6; VENT SETTINGS IPAP12/EPAP5
--- NOTE | 2017-07-09 12:29 | HHI.HP ---
[facility] Service Critical Care Medicine Primary Care Physician Malcolm Gay MD Admission Diagnosis acute decompensated heart failure Diagnosis: (1) Acute hypoxemic respiratory failure Diagnosis: Principal (2) CHF exacerbation Diagnosis: Principal (3) Hypertensive emergency Diagnosis: Principal (4) Elevated brain natriuretic peptide (BNP) level Diagnosis: Principal (5) Pulmonary edema Diagnosis: Principal (6) CKD (chronic kidney disease) stage 3, GFR 30-59 ml/min Diagnosis: Secondary (7) HTN (hypertension) Diagnosis: Secondary (8) CAD (coronary artery disease) Diagnosis: Secondary (9) Hx of deep venous thrombosis Diagnosis: Secondary (10) PAD (peripheral artery disease) Diagnosis: Secondary Chief Complaint: Shortness of breath Respiratory failure Pulmonary edema Travel History International Travel<30 Days: No Contact w/Intl Traveler <30 Da: No Traveled to Known Affected Are: No Sepsis Criteria SIRS Criteria (2 or more): Heart rate over 90, RR > 20 or PaCO2 < 32 Criteria Outcome: Meets SIRS criteria History of Present Illness This 71-year-old woman with past medical history significant for coronary artery disease status post RCA stent April 2017, peripheral arterial disease, history of lower extremity DVT on chronic Coumadin, probable COPD and continued smoking, who presented to the emergency department with severe shortness of breath and uncontrolled hypertension. She had abrupt onset of shortness of breath this am. Initial blood pressure in ED was 236/100, with severe dyspnea and room air saturations in the 70s. Patient was immediately placed on BiPAP with improvement in respiratory status. Patient recently had cardiac cath and RCA stent in Apr 2017. She is aspirin and Plavix for CAD and peripheral arterial disease, on Coumadin for previous DVT. EKG shows no acute changes. Creat 1.3, BNP 1611 and INR 1.7. Initial troponin negative. Chest x-ray showed bilateral pulmonary edema. Patient was given IV Lasix 40 mg and is making urine now. I evaluated the patient in the ED. She is in mod distress on BiPAP, but improving gradually. Remains on Nitro drip for BP control. I have started scheduled IV Lasix and PRN IV labetalol and hydralazine for blood pressure control. I have also placed the patient on when necessary breathing treatments , scheduled IV Solu-Medrol and azithromycin. Limited 2 D Echo ordered. Prev Echo in April 2017, EF 45-50% Review of Systems ROS Limitations: Clinical Condition, Other (respiratory failure on BiPAP) Past Family Social History Allergies: Coded Allergies: *MDRO Multi-Drug Resistant Organism (Verified Allergy, Unknown, 07/09/17) MRSA Contrast Media (Verified Allergy, Unknown, 07/09/17) Diflucan (Verified Allergy, Unknown, 07/09/17) Keflex (Verified Allergy, Unknown, 07/09/17) Pravachol (Verified Allergy, Unknown, 07/09/17) Past Medical History Coronary artery disease, recent RCA stent on 05/22/[address] Roy Rheumatoid arthritis ? Lupus Right lower extremity DVT, on warfarin History kidney stones Probable COPD Hypertension Active tobacco use Past Surgical History Cardiac catheterization with RCA stent 05/22/17 Multiple lower extremity stents for PAD Reported Medications Aspir-81 (Aspirin) 81 Mg Tabdr 81 Mg PO DAILY Lopressor (Metoprolol Tartrate) 50 Mg Tab 50 Mg PO Q12HR Plavix (Clopidogrel Bisulfate) 75 Mg Tab 75 Mg PO DAILY Probiotic (Lactobacillus Acidophilus) 1 Cap Cap 1 Cap PO TIDAC Iron (Ferrous Sulfate) 325 Mg Cap 65 Mg PO TIDPC Lipitor (Atorvastatin Calcium) 20 Mg Tab 20 Mg PO HS Lisinopril 5 Mg Tab 5 Mg PO DAILY Tylenol-Codeine #3 (Acetaminophen-Codeine) 300-30 mg Tab 1 Tab PO Q4H PRN Vitamin D-3 (Cholecalciferol) 2,000 Unit Tab Multi For Her (Multiple Vitamins W/ Minerals) 1 Tab Tab Coumadin (Warfarin) 5 Mg Tab 5 Mg PO DAILY Mirtazapine 30 Mg Tab 30 Mg PO HS Sertraline (Sertraline HCl) 50 Mg Tab 50 Mg PO DAILY Plaquenil (Hydroxychloroquine Sulfate) 200 Mg Tab 200 Mg PO DAILY Active Ordered Medications Reviewed Family History Unable to obtain due to respiratory failure on BiPAP Social History Smokes one pack of cigarettes per day Physical Exam Vital Signs Vital Signs Date Time Temp Pulse Resp B/P Pulse Ox O2 Delivery O2 Flow Rate FiO2 07/09/17 12:18 100 40 07/09/17 12:17 159/72 07/09/17 12:08 66 165/74 07/09/17 11:55 171/79 07/09/17 11:42 159/69 07/09/17 11:36 162/70 07/09/17 11:31 157/72 07/09/17 11:27 161/64 8/13/17 11:22 177/79 07/09/17 11:10 165/78 07/09/17 11:01 169/78 07/09/17 10:56 170/81 07/09/17 10:52 166/78 07/09/17 10:45 160/74 07/09/17 10:41 65 17 179/81 100 CPAP 07/09/17 10:37 172/73 07/09/17 10:34 97.4 07/09/17 10:27 192/82 07/09/17 10:15 159/76 07/09/17 10:09 165/75 07/09/17 10:05 163/77 07/09/17 10:00 173/81 07/09/17 09:57 195/79 07/09/17 09:41 71 16 183/86 100 CPAP 12 07/09/17 08:59 99 CPAP 15 40 07/09/17 08:54 99 40 07/09/17 08:49 97 26 201/91 99 Physical Exam GENERAL: 71 year-old woman, moderate respiratory distress on BiPAP. SKIN: Warm/dry. Chronic wound right ankle HEAD: Atraumatic. Normocephalic. EYES: Pupils equal and round. No scleral icterus. No injection or drainage. ENT: No nasal bleeding or discharge. BiPAP mask limits exam NECK: Trachea midline. No JVD. CARDIOVASCULAR: Regular rate and rhythm. No murmur appreciated. RESPIRATORY: Coarse Rales throughout the lung june, mild wheezing. Slightly tachypneic GASTROINTESTINAL: Abdomen soft, non-tender, nondistended. Hepatic and splenic margins not palpable. MUSCULOSKELETAL: No obvious deformities. Chronic wound on the right ankle NEURO: Alert awake no focal deficits Laboratory Laboratory Tests Test 07/09/17 07/09/17 09:12 11:11 White Blood Count 8.6 Red Blood Count 2.85 Hemoglobin 8.9 Hematocrit 26.6 Mean Corpuscular Volume 93.2 Mean Corpuscular Hemoglobin 31.1 Mean Corpuscular Hemoglobin 33.3 Concent Red Cell Distribution Width 15.9 Platelet Count 356 Mean Platelet Volume 6.1 Neutrophils (%) (Auto) 72.6 Lymphocytes (%) (Auto) 17.6 Monocytes (%) (Auto) 5.9 Eosinophils (%) (Auto) 2.9 Basophils (%) (Auto) 1.0 Neutrophils # (Auto) 6.3 Lymphocytes # (Auto) 1.5 Monocytes # (Auto) 0.5 Eosinophils # (Auto) 0.2 Basophils # (Auto) 0.1 CBC Comment DIFF FINAL Differential Comment Prothrombin Time 19.4 Prothromb Time International 1.7 Ratio Activated Partial 39.5 Thromboplast Time Sodium Level 135 Potassium Level 3.9 Chloride Level 105 Carbon Dioxide Level 21.3 Anion Gap 9 Blood Urea Nitrogen 28 Creatinine 1.32 Estimat Glomerular Filtration 40 Rate Random Glucose 131 Calcium Level 7.2 Protein Corrected Calcium 7.7 Magnesium Level 2.1 Total Bilirubin 0.2 Aspartate Amino Transf 19 (AST/SGOT) Alanine Aminotransferase 24 (ALT/SGPT) Alkaline Phosphatase 114 Troponin I LESS THAN 0.02 B-Type Natriuretic Peptide 1611 Total Protein 6.1 Albumin 2.6 Blood Gas Puncture Site RT RADIAL Blood Gas Patient Temperature 98.6 Blood Gas HCO3 20 Blood Gas Base Excess -5.0 Blood Gas Oxygen Saturation 96 Arterial Blood pH 7.31 Arterial Blood Partial 41 Pressure CO2 Arterial Blood Partial 153 Pressure O2 Arterial Blood Oxygen Content 11.3 Arterial Blood 2.4 Carboxyhemoglobin Arterial Blood Methemoglobin 0.6 Blood Gas Hemoglobin 8.1 Oxygen Delivery Device BIPAP Blood Gas Ventilator Setting [id number] Blood Gas Inspired Oxygen 40 Result Diagram: 07/09/1791107/09/17911 Imaging Chest x-ray shows bilateral pulmonary edema Assessment and Plan Assessment and Plan NEURO: - Minimize sedation. Continue Tylenol No. 3 when necessary for pain - Continue Plaquenil for rheumatoid arthritis RESP: Acute hypoxemic respiratory failure Probable COPD exacerbation Active tobacco use - BiPAP 10/31. Titrate FiO2 as tolerated - IV Solu-Medrol 40 mg every 12 - DuoNeb every 6 hours scheduled and when necessary - Symbicort 1 puff by mouth q12 - Empiric azithromycin CV: Acute CHF exacerbation/pulmonary edema Hypertensive emergency History of coronary artery disease recent stenting RCA 05/22/17 - IV Lasix 40 mg 1 in the ED and continue 40 every 12 - Currently on nitro drip for hypertensive emergency and CHF exacerbation - Continue home metoprolol, add hydralazine IV and labetalol IV when necessary for SBP more than 160 - Start Norvasc 5 mg daily, hold home lisinopril due to diuresis - Continue aspirin and Plavix and Coumadin - Trend troponin - 2-D echo approximately 2 months ago showed EF 45-50% no wall motion abnormalities, check limited 2-D echo again GI: - Nothing by mouth until respiratory status improves. IV Protonix : Chronic kidney disease - Monitor renal function closely. Place Thompson catheter. - IV Lasix as above ID: - Empiric azithromycin to cover for COPD exacerbation HEME: History of extremity DVT - Monitor CBC, CMP, coags - Continue warfarin with pharmacy dosing ENDO: - Electrolyte replacement per protocol PROPH: - Bilateral lower extremity SCDs. IV Protonix and warfarin LINES: - Utilize peripheral IVs, central line if needed CC time 38 min Patient remains critically ill at this time. If not sufficiently improved with BiPAP may need intubation. ICU care until more stable Code Status Full Discussed Condition With Dr. Zamora, RT Problem Qualifiers (1) Pulmonary edema: Qualified Code: J81.0 - Acute pulmonary edema (2) HTN (hypertension): Qualified Code: I10 - Hypertension, unspecified type (3) CAD (coronary artery disease): Pratik Rucker MD Jul 09, 2017 12:29 Patient remains critically ill at this time. If not sufficiently improved with BiPAP may need intubation. ICU care until more stable Code Status Full Discussed Condition With Dr. Zamora, RT Problem Qualifiers (1) Pulmonary edema: Qualified Code: J81.0 - Acute pulmonary edema (2) HTN (hypertension): Qualified Code: I10 - Hypertension, unspecified type (3) CAD (coronary artery disease): Pratik Rucker MD Jul 09, 2017 12:29
[2017-07-09] MEDS ORDERED: MAGNESIUM SULFATE INJ 2 GM in SODIUM CHLORIDE 0.9% INJ 96 ML IV PRN (12:30)
[2017-07-09] MEDS ORDERED: SODIUM PHOSPHATE INJ 30 MMOL in SODIUM CHLOR 0.9% 250 ML INJ 240 ML IV PRN (12:30)
[2017-07-09] MEDS ORDERED: POTASSIUM CHLORIDE 25 MEQ EFFERVESCENT TAB PO PRN (12:30)
[2017-07-09] MEDS ORDERED: POTASSIUM CHLOR 20 MEQ PREMIX 100 ML IV PRN ×2 (12:30)
[2017-07-09] MEDS ORDERED: POTASSIUM PHOSPHATE MONOBASIC 500 MG TAB PO PRN (12:30)
[2017-07-09] MEDS ORDERED: POTASSIUM PHOSPHATE MONOBASIC 500 MG TAB PO/TUBE PRN (12:30)
[2017-07-09] MEDS ORDERED: POTASSIUM PHOSPHATE INJ 30 MMOL in SODIUM CHLOR 0.9% 250 ML INJ 250 ML IV PRN (12:30)
[2017-07-09] MEDS ORDERED: MAGNESIUM OXIDE 400 MG TAB PO PRN (12:30)
[2017-07-09] MEDS ORDERED: MAGNESIUM SULFATE INJ 4 GM in SODIUM CHLORIDE 0.9% INJ 92 ML IV PRN (12:30)
[2017-07-09] MEDS ORDERED: POTASSIUM CHLOR 40 MEQ PREMIX 100 ML IV PRN ×2 (12:30)
[2017-07-09] MEDS ORDERED: LABETALOL HCL 100 MG/20 ML VIAL IV PUSH PRN (12:45)
[2017-07-09] MEDS ORDERED: AZITHROMYCIN INJ 500 MG in SODIUM CHLOR 0.9% 250 ML INJ 250 ML IV SCH (13:00)
--- NOTE | 2017-07-09 13:23 | ECHRPT ---
Indication: CONCLUSIONS BP: / HR: 68 Rhythm: Sinus MEASUREMENTS (Male / Female) Normal Values Technical Quality:Fair, Technically difficult stud y 2D ECHO LV Diastolic Diameter PLAX 4.3 cm 4.2 - 5.9 / 3.9 - 5.3 cm LV Systolic Diameter PLAX 3.4 cm IVS Diastolic Thickness 1.1 cm 0.6 - 1.0 / 0.6 - 0.9 cm LVPW Diastolic Thickness 1.1 cm 0.6 - 1.0 / 0.6 - 0.9 cm LV Relative Wall Thickness 0.5 LV Ejection Fraction MOD BP 44.7 % >= 55 % LV Cardiac Index MOD BP 1767.4 cm/minm LV Ejection Fraction MOD 4C 45.7 % LV Cardiac Index MOD 4C 1663.4 cm/minm LV Ejection Fraction 4C AL 46.8 % LV Cardiac Index 4C AL 1805.7 cm/minm LV Ejection Fraction MOD 2C 40.8 % LV Cardiac Index MOD 2C 1611.5 cm/minm LV Ejection Fraction 2C AL 41.0 % LV Cardiac Index 2C AL 1694.2 cm/minm FINDINGS LEFT VENTRICLE The left ventricular systolic function is low normal with an estimated ejection fraction in the rang e of 50- 55%. Wall thickness is measured at the upper limits of normal. Normal left ventricular size. RIGHT VENTRICLE Normal right ventricular size and systolic function. LEFT ATRIUM The left atrial size is normal. RIGHT ATRIUM The right atrial size is normal. The right atrium is not well visualized. ATRIAL SEPTUM Normal atrial septal thickness without atrial level shunting by limited color doppler interrogation. AORTA The aortic root and proximal ascending aorta are normal in size on limited imaging. MITRAL VALVE No mitral valve stenosis or regurgitation. Mild thickening of the mitral valve leaflets. Mild mitral annular calcification. AORTIC VALVE The aortic valve is not well visualized. Mild thickening of the aortic valve leaflets. No aortic valve stenosis or regurgitation. TRICUSPID VALVE The tricuspid valve is not well visualized. . No tricuspid valve stenosis or regurgitation. PULMONARY VALVE The pulmonary valve is not well visualized. VESSELS The inferior vena cava was not well visualized. PERICARDIUM No pericardial effusion. Rickey Mcneill MD (Electronically Signed) Final Date:09 July 2017 13:22
[2017-07-09] MEDS: POTASSIUM CHLORIDE 20 MEQ CONTROLLED RELEASE TAB PO SCH (13:36)
[2017-07-09] MEDS: amLODIPine BESYLATE 5 MG TAB PO SCH (13:38)
[2017-07-09] MEDS: methylPREDNISolone SOD SUCC 125 MG/2 ML VIAL IV PUSH SCH ×2 (13:38→20:04)
[2017-07-09] MEDS: ALBUMIN HUMAN 25% 25 GM/100 ML BAGP IV SCH (14:19)
[2017-07-09] MEDS: hydrALAZINE HCL 20 MG/ML VIAL IV PUSH PRN (14:20)
[2017-07-09] MEDS: RESP: ALBUTEROL 2.5 MG/IPRATROPIUM 0.5 MG NEB (SCH) NEB ×3 (15:35→20:33)
[2017-07-09] MEDS: BUDESONIDE-FORMOTEROL 160/4.5 MCG INHALER INH SCH ×2 (15:54→20:08)
[2017-07-09] MEDS ORDERED: WARFARIN SOD 1 MG TAB PO ONE (16:00)
[2017-07-09] MEDS: WARFARIN SOD 5 MG TAB PO SCH (16:17)
[2017-07-09] MEDS: FUROSEMIDE 40 MG/4 ML VIAL IV PUSH SCH (18:55)
[2017-07-09] MEDS: CHLORHEXIDINE 0.12% (ORAL KIT) 15 ML CUP MT SCH (20:00)
[2017-07-09] MEDS: ATORVASTATIN 20 MG TAB PO SCH (20:03)
[2017-07-09] MEDS: METOPROLOL TARTRATE 50 MG TAB PO SCH (20:03)
[2017-07-09 20:55] LABS: MAGNESIUM 2.2 MG/DL (1.5-2.5)
[2017-07-10] VITALS (26 sets, daily range): BP systolic 132–162; BP diastolic 57–73; PULSE 60–100; RESP 20; TEMP 98.1–98.7; O2SAT 96–99
[2017-07-10] MEDS: ALBUMIN HUMAN 25% 25 GM/100 ML BAGP IV SCH (00:12)
[2017-07-10] MEDS: CHLORHEXIDINE GLUCONATE 2 % 1 PACK (2 CLOTHS) TOP SCH (04:00)
[2017-07-10] MEDS: RESP: ALBUTEROL 2.5 MG/IPRATROPIUM 0.5 MG NEB (SCH) NEB ×6 (04:34→21:06)
[2017-07-10] MEDS: ACETAMINOPHEN 325 MG TAB PO PRN (04:51)
--- NOTE | 2017-07-10 05:15 | RADRPT ---
EXAM DATE/TIME: 07/10/2017 04:38 [place] COMPARISON: CHEST SINGLE AP, May 18, 2017, 8:19. CHEST SINGLE AP, July 09, 2017, 9:29. INDICATIONS : Shortness of breath, possible pulmonary disease. MEDICAL HISTORY : Peripheral vascular disease. Deep venous thrombosis. SURGICAL HISTORY : IVC filter placement. ENCOUNTER: Subsequent ACUITY: 2 days PAIN SCORE: 0/10 LOCATION: Bilateral chest FINDINGS: Improved aeration of both lungs with resolved opacities in the middle one 3rd of both lungs. There p ersists some indistinctness of the central bronchopulmonary markings. Both hemidiaphragms are well d elineated; there is some blunting of lateral left trev-diaphragm. Healed fractures of the posterior- lateral 7th through 10th ribs. CONCLUSION: Improved bilateral parenchymal opacities with some residual indistinctness of the bronchopulmonary ma rkings. Probable small left pleural effusion. Angelito Rossi MD on July 10, 2017 at 5:12 Board Certified Radiologist. This report was verified electronically.
[2017-07-10] MEDS: CHLORHEXIDINE 0.12% (ORAL KIT) 15 ML CUP MT SCH ×2 (08:00→20:00)
--- NOTE | 2017-07-10 09:19 | HHI.PR ---
Subjective Remarks Pt sitting in chair comfortably, eating breakfast She has been off supplemental O2 and on RA since about 0300 per the pt Good UOP, she had out 275 overnight and currently has about 600mL in [place] bag Objective Vitals Vital Signs Date Time Temp Pulse Resp B/P Pulse Ox O2 Delivery O2 Flow Rate FiO2 07/10/17 08:20 98.2 81 20 147/64 98 07/10/17 08:09 96 21 07/10/17 02:00 77 07/10/17 00:00 98.4 78 20 142/65 98 07/10/17 00:00 78 07/09/17 22:00 69 07/09/17 20:34 100 Nasal Cannula 3.00 07/09/17 20:00 82 07/09/17 20:00 99.0 82 24 135/63 100 07/09/17 20:00 100 Nasal Cannula 3.00 07/09/17 19:00 100 Nasal Cannula 4.00 07/09/17 16:00 98.0 95 26 125/60 100 07/09/17 14:37 100 Nasal Cannula 2.00 07/09/17 14:00 98.0 95 25 125/60 100 07/09/17 13:32 155/72 07/09/17 13:11 100 Nasal Cannula 4 07/09/17 13:07 69 16 140/59 100 CPAP 07/09/17 12:56 161/72 07/09/17 12:47 144/66 07/09/17 12:24 150/71 07/09/17 12:18 100 40 07/09/17 12:17 159/72 07/09/17 12:08 66 165/74 07/09/17 11:55 171/79 07/09/17 11:42 159/69 07/09/17 11:36 162/70 07/09/17 11:31 157/72 07/09/17 11:27 161/64 07/09/17 11:22 177/79 07/09/17 11:10 165/78 07/09/17 11:01 169/78 07/09/17 10:56 170/81 07/09/17 10:52 166/78 07/09/17 10:45 160/74 07/09/17 10:41 65 17 179/81 100 CPAP 07/09/17 10:37 172/73 07/09/17 10:34 97.4 07/09/17 10:27 192/82 07/09/17 10:15 159/76 07/09/17 10:09 165/75 07/09/17 10:05 163/77 07/09/17 10:00 173/81 07/09/17 09:57 195/79 07/09/17 09:41 71 16 183/86 100 CPAP 12 07/09/17 09:20 97 40 07/09/17 08:59 99 CPAP 15 40 07/09/17 08:54 99 40 07/09/17 08:49 97 26 201/91 99 07/09/17 07/09/17 07/10/17 14:59 22:59 06:59 Intake Total 227 ml Output Total 1200 ml 275 ml Balance -973 ml -275 ml Intake IV Total 227 ml Output Urine Total 1200 ml 275 ml # Voids 2 # Bowel Movements 0 0 Result Diagram: 07/09/17 0912 07/09/17911 Other Results Laboratory Tests Test 07/09/17 07/09/17 07/09/17 07/09/17 09:12 11:11 13:35 14:20 White Blood Count 8.6 TH/MM3 Red Blood Count 2.85 MIL/MM3 Hemoglobin 8.9 GM/DL Hematocrit 26.6 % Mean Corpuscular Volume 93.2 FL Mean Corpuscular Hemoglobin 31.1 PG Mean Corpuscular Hemoglobin 33.3 % Concent Red Cell Distribution Width 15.9 % Platelet Count 356 TH/MM3 Mean Platelet Volume 6.1 FL Neutrophils (%) (Auto) 72.6 % Lymphocytes (%) (Auto) 17.6 % Monocytes (%) (Auto) 5.9 % Eosinophils (%) (Auto) 2.9 % Basophils (%) (Auto) 1.0 % Neutrophils # (Auto) 6.3 TH/MM3 Lymphocytes # (Auto) 1.5 TH/MM3 Monocytes # (Auto) 0.5 TH/MM3 Eosinophils # (Auto) 0.2 TH/MM3 Basophils # (Auto) 0.1 TH/MM3 CBC Comment DIFF FINAL Differential Comment Prothrombin Time 19.4 SEC Prothromb Time International 1.7 RATIO Ratio Activated Partial 39.5 SEC Thromboplast Time Sodium Level 135 MEQ/L Potassium Level 3.9 MEQ/L Chloride Level 105 MEQ/L Carbon Dioxide Level 21.3 MEQ/L Anion Gap 9 MEQ/L Blood Urea Nitrogen 28 MG/DL Creatinine 1.32 MG/DL Estimat Glomerular Filtration 40 ML/MIN Rate Random Glucose 131 MG/DL Calcium Level 7.2 MG/DL Protein Corrected Calcium 7.7 MG/DL Magnesium Level 2.1 MG/DL Total Bilirubin 0.2 MG/DL Aspartate Amino Transf 19 U/L (AST/SGOT) Alanine Aminotransferase 24 U/L (ALT/SGPT) Alkaline Phosphatase 114 U/L Troponin I LESS THAN 0.02 0.08 NG/ML NG/ML B-Type Natriuretic Peptide 1611 PG/ML Total Protein 6.1 GM/DL Albumin 2.6 GM/DL Blood Gas Puncture Site RT RADIAL Blood Gas Patient Temperature 98.6 Blood Gas HCO3 20 mmol/L Blood Gas Base Excess -5.0 mmol/L Blood Gas Oxygen Saturation 96 % Arterial Blood pH 7.31 Arterial Blood Partial 41 mmHg Pressure CO2 Arterial Blood Partial 153 mmHG Pressure O2 Arterial Blood Oxygen Content 11.3 Vol % Arterial Blood 2.4 % Carboxyhemoglobin Arterial Blood Methemoglobin 0.6 % Blood Gas Hemoglobin 8.1 G/DL Oxygen Delivery Device BIPAP Blood Gas Ventilator Setting IPAP12/EPAP5 Blood Gas Inspired Oxygen 40 % Nasal Screen MRSA (PCR) MRSA DETECTED Test 07/09/17 20:02 Phosphorus Level 4.7 MG/DL Magnesium Level 2.2 MG/DL Troponin I 0.07 NG/ML Imaging Last Impressions Chest X-Ray 07/10/17 0600 Signed Impressions: Service Date/Time: Monday, July 10, 2017 04:38 - CONCLUSION: Improved bilateral parenchymal opacities with some residual indistinctness of the bronchopulmonary markings. Probable small left pleural effusion. Angelito Rossi MD Objective Remarks General: NAD, AAOx3 Chest: Minimal crackles at the bases Cardiac: Regular Abd: +BS, soft ND/NT Ext: No edema, chronic wound on right medial ankle, no purulent drainage noted A/P Problem List: (1) Acute hypoxemic respiratory failure Status: Acute Plan: - Pt is a 71 y/o female with CAD s/p LHC with BMS placed in the RCA on 05/22/17, previous DVT of her right lower extremity on Coumadin, questionable COPD, CAD, PVD, HTN and an active smoker who presented to the ED on 07/09/17 with severe shortness of breath and uncontrolled hypertension - Her initial blood pressure in ED was 236/100, with severe dyspnea and room air saturations in the 70s. She was immediately placed on BiPAP with improvement in respiratory status. - EKG shows no acute changes. - At admission her labs indicated Creat 1.3, BNP 1611 and INR 1.7. - Chest x-ray (07/09)--> bilateral pulmonary edema. - Patient was given IV Lasix 40 mg and continued on 40mg Q12H and IV Albumin - Pt was admitted to the ICU under the care of the intensivists. - She was placed on a nitro drip for hypertensive emergency and CHF exacerbation - She was continued on her home dose of metoprolol. Norvasc 5mg daily was added. Home dose of Lisinopril was held for diuresis. - Labetalol IV PRN for SBP more than 160 - 2D echo (05/17) --> EF 45-50%, LA is [id number] dilated, RA mild-to- moderately dilated, mild mitral valve regurg, aortic valve sclerosis, mild tricuspid regurg, moderate pulmonary HTN (60-70mmHg) - Limited 2D echo (07/11) --> EF 50-55%, LV wall thickness is upper limits of normal, - 2-D echo approximately 2 months ago showed EF 45-50% no wall motion abnormalities - She was given Solu-Medrol 125mg IV in the ED and continued on Solu-Medrol 40mg Q12H - Pt was started on Azithromycin IV - Pt continued on Plavix, ASA, and Coumadin. - Convert IV to PO Lasix today - Convert Solu-Medrol to po Prednisone today - Await repeat labs for today - Wound care eval for chronic right ankle wound - PT evaluation - Anticipate discharge planning in the next 1-2 days. (2) CHF exacerbation Status: Acute Plan: - See above. (3) Hypertensive emergency Status: Acute Plan: - BP improving - Pt is off Nitro gtt. - Cont. Metoprolol 50mg Q12H, Lisinopril 5mg po daily, and Norvasc 5 mg po daily - Monitor (4) CKD (chronic kidney disease) stage 3, GFR 30-59 ml/min Status: Chronic Plan: - Labs are stable - Monitor during diuresis (5) HTN (hypertension) Status: Chronic Plan: - See above. (6) CAD (coronary artery disease) Status: Chronic Plan: - See above. (7) Hx of deep venous thrombosis Status: Chronic Plan: - Pt with hx of RLE DVT and has had IVC filter placed previously - [facility] (05/18) --> Occlusive and nonocclusive deep venous thrombosis in the right superficial femoral vein and right popliteal vein. Negative left lower extremity. - Coumadin - INR 1.7 at admission (8) PAD (peripheral artery disease) Status: Chronic Plan: - Pt has had previous stenting to the RLE Assessment and Plan Patient examined. Assessment and plan formulated with Alexus Gibson PA-C. I agree with the above. Problem Qualifiers (1) CHF exacerbation: Qualified Code: I50.9 - Acute on chronic congestive heart failure, unspecified congestive heart failure type (2) HTN (hypertension): Qualified Code: I10 - Hypertension, unspecified type (3) CAD (coronary artery disease): Alexus Gibson Jul 10, 2017 09:19 Elliott Ray DO Jul 11, 2017 11:10
[2017-07-10] MEDS: POTASSIUM CHLORIDE 20 MEQ CONTROLLED RELEASE TAB PO SCH (09:38)
[2017-07-10] MEDS: amLODIPine BESYLATE 5 MG TAB PO SCH (09:38)
[2017-07-10] MEDS: LISINOPRIL 5 MG TAB PO SCH (09:38)
[2017-07-10] MEDS: methylPREDNISolone SOD SUCC 125 MG/2 ML VIAL IV PUSH SCH (09:39)
[2017-07-10] MEDS: PANTOPRAZOLE SODIUM 40 MG VIAL IV SCH (09:39)
[2017-07-10] MEDS: SERTRALINE HCL 50 MG TAB PO SCH (09:39)
[2017-07-10] MEDS: METOPROLOL TARTRATE 50 MG TAB PO SCH ×2 (09:39→21:41)
[2017-07-10] MEDS: CLOPIDOGREL 75 MG TAB PO SCH ×2 (09:39→09:53)
[2017-07-10] MEDS: ASPIRIN EC 81 MG TABEC PO SCH (09:39)
[2017-07-10] MEDS: FUROSEMIDE 40 MG/4 ML VIAL IV PUSH SCH (09:40)
[2017-07-10] MEDS: BUDESONIDE-FORMOTEROL 160/4.5 MCG INHALER INH SCH ×2 (09:53→21:40)
[2017-07-10] MEDS: HYDROXYCHLOROQUINE SULFATE 200 MG TAB PO SCH (10:45)
[2017-07-10] MEDS ORDERED: NICOTINE 14 MG/24 HR PATCH T-DERMAL ONE (12:00)
--- NOTE | 2017-07-10 15:22 | PD.WCN.NOT ---
Wound Consult Description: Wound management of chronic right medial malleolus Right anterior medial thigh wound Communicated with: DOMINGO Gibson Recommendation: Cleanse right medial malleolus with NS and gauze. Apply cut Maxorb II into wound bed and cover with bordered gauze every 3-5 days. Gently cleanse right medial thigh wound with NS and gauze, use iodoform packing strip to lightly pack wound every other day and cover with gauze and paper tape. Follow up with Vascular Surgery and wound care after discharge. Additional Information: Patient known to chart writer from last admission. Patient seen on [facility] for wound evaluation of chronic right medial ankle wound and right thigh wound. Patient right foot is cold to touch with no palpable pulses noted with removal of sock prior to assessment of wound. Right medial ankle wound dressing removed to reveal an arterial appearing punched out, pale, red/pink wound bed, minimal serous exudate, that was painful when cleansed with NS and gauze. There is no odor and no active drainage noted coming from within pale red/pink wound bed. Wound margins are white yet do not appear to be epithelial tissue. Periwound is cold and pale pink/white intact skin. Wound measures 1.5cm x 1.6cm x 0.3cm. Maxorb II was cut and placed into the wound bed and recommended to remain in place for up to 5 days unless soiled or dislodged. A bordered gauze dressing dated today was used to secure Maxorb in place. Right medial upper thigh wound measures 0.8cm x 0.8cm x 1.9cm with sanguinous drainage. Patient states that this wound is from a biopsy back in December. The wound was noted with a flap of skin covering wound that patient states the catering attendant usually cuts off before dressing the wound. The wound was cleansed with NS and gauze before gently and lightly packing wound with 1/4" Iodoform leaving a tail out for removal and covered with Maxorb II and gauze secured with paper tape that may remain in place for 2 days. Yana Barnes [facility] Jul 10, 2017 15:22
--- NOTE | 2017-07-10 16:42 | EKG ---
Date Performed: 07/09/2017 Time Performed: 09:02:32 PTAGE: 71 years EKG: ATRIAL FIBRILLATION MARKED LEFT AXIS DEVIATION POSSIBLE ANTERIOR MYOCARDIAL INFARCTION MODE RATE T-WAVE ABNORMALITY, CONSIDER LATERAL ISCHEMIA ABNORMAL ECG PREVIOUS TRACING : 05/18/2017 06.55 Since previous tracing, no significant change noted DOCTOR: Juan M Hernandez Interpretating Date/Time 07/10/2017 16:40:51
[2017-07-10] MEDS: FUROSEMIDE 20 MG TAB PO SCH (17:17)
[2017-07-10] MEDS: WARFARIN SOD 5 MG TAB PO SCH (17:17)
[2017-07-10] MEDS: predniSONE 20 MG TAB PO SCH (21:41)
[2017-07-10] MEDS: ATORVASTATIN 20 MG TAB PO SCH (21:41)
[2017-07-10] MEDS: MIRTAZAPINE 15 MG TAB PO SCH (21:41)
[2017-07-11] VITALS (30 sets, daily range): BP systolic 124–168; BP diastolic 60–87; PULSE 60–77; RESP 18–20; TEMP 97.7–98.3; O2SAT 96–100
[2017-07-11] MEDS: RESP: ALBUTEROL 2.5 MG/IPRATROPIUM 0.5 MG NEB (SCH) NEB ×4 (04:00→22:25)
[2017-07-11] MEDS: CHLORHEXIDINE GLUCONATE 2 % 1 PACK (2 CLOTHS) TOP SCH (04:00)
[2017-07-11] MEDS: hydrALAZINE HCL 20 MG/ML VIAL IV PUSH PRN (05:22)
[2017-07-11 06:43] LABS: HEMATOCRIT 24.3 % (35.0-46.0); HEMO FLAGS DIFF FINAL; LYMPHOCYTE # 0.6 TH/MM3 (1.0-4.8); MEAN CELL VOLUME 92.6 FL (80.0-100.0); MEAN CORPUSCULAR HEMOGLOBIN 31.1 PG (27.0-34.0); MEAN CORPUSCULAR HGB CONC 33.6 % (32.0-36.0); MONO % 3.3 % (0.0-8.0); NEUT % 85.7 % (16.0-70.0); PLATELET COUNT 327 TH/MM3 (150-450); RED BLOOD COUNT 2.63 MIL/MM3 (4.00-5.30); RED CELL DISTRIBUTION WIDTH 15.7 % (11.6-17.2); WHITE BLOOD COUNT 5.9 TH/MM3 (4.0-11.0)
[2017-07-11 06:56] LABS: INTERNATIONAL NORMALIZED RATIO 5.9 RATIO; PROTHROMBIN TIME - PATIENT 70.2 SEC (9.8-11.6)
[2017-07-11 07:32] LABS: BICARBONATE 21.3 MEQ/L (21.0-32.0); MAGNESIUM 2.1 MG/DL (1.5-2.5); POTASSIUM 4.3 MEQ/L (3.5-5.1)
[2017-07-11] MEDS: BUDESONIDE-FORMOTEROL 160/4.5 MCG INHALER INH SCH ×2 (08:19→21:26)
[2017-07-11] MEDS: NICOTINE 14 MG/24 HR PATCH T-DERMAL SCH (08:20)
[2017-07-11] MEDS: REMOVE OLD PATCH T-DERMAL SCH (08:20)
[2017-07-11] MEDS: SERTRALINE HCL 50 MG TAB PO SCH (08:21)
[2017-07-11] MEDS: POTASSIUM CHLORIDE 20 MEQ CONTROLLED RELEASE TAB PO SCH (08:21)
[2017-07-11] MEDS: METOPROLOL TARTRATE 50 MG TAB PO SCH ×2 (08:21→21:26)
[2017-07-11] MEDS: HYDROXYCHLOROQUINE SULFATE 200 MG TAB PO SCH (08:21)
[2017-07-11] MEDS: predniSONE 20 MG TAB PO SCH (08:21)
[2017-07-11] MEDS: LISINOPRIL 5 MG TAB PO SCH (08:21)
[2017-07-11] MEDS: FUROSEMIDE 20 MG TAB PO SCH ×2 (08:21→18:21)
[2017-07-11] MEDS: ASPIRIN EC 81 MG TABEC PO SCH (08:21)
[2017-07-11] MEDS: amLODIPine BESYLATE 5 MG TAB PO SCH (08:21)
[2017-07-11] MEDS: PANTOPRAZOLE SODIUM 40 MG VIAL IV SCH (08:22)
[2017-07-11] MEDS: CLOPIDOGREL 75 MG TAB PO SCH (08:23)
--- NOTE | 2017-07-11 08:49 | HHI.FF ---
Face to Face Verification Diagnosis: (1) Acute hypoxemic respiratory failure (2) HTN (hypertension) (3) Hypertensive emergency (4) CHF exacerbation (5) Elevated brain natriuretic peptide (BNP) level (6) Hx of deep venous thrombosis (7) PAD (peripheral artery disease) (8) CKD (chronic kidney disease) stage 3, GFR 30-59 ml/min Physical Therapy Order: Evaluate and Treat, Improve ambulation, Strength and gait training Home Health Nursing Order: Wound care and dressing changes Nursing assessment with vital signs Instructions: Wound Care recommendations: Cleanse right medial malleolus with NS and gauze. Apply Maxorb II into wound bed and cover with bordered gauze every 3-5 days. Gently cleanse right medial thigh wound with NS and gauze, use iodoform packing strip to lightly pack wound every other day and cover with gauze and paper tape. Please check BMP and INR every Monday with results to the pts PCP, Dr. Malcolm Gay. I have seen patient Precious Plaza on 07/11/17. My clinical findings support the need for the requested home health care services because: Patient has SOB Deconditioned w/ increased weakness High risk of falls I certify that my clinical findings support that this patient is homebound because: Hx COPD- exertion dyspnea/weakness Unsteady gait/balance Alexus Gibson Jul 11, 2017 08:49
--- NOTE | 2017-07-11 09:48 | HHI.PR ---
Subjective Remarks Pt complains of feeling gittery and unable to sleep likely secondary to steroids She is upset that she will not be discharged to home today Objective Vitals Vital Signs Date Time Temp Pulse Resp B/P Pulse Ox O2 Delivery O2 Flow Rate FiO2 07/11/17 09:17 100 21 07/11/17 07:01 69 07/11/17 06:00 60 07/11/17 05:56 124/60 07/11/17 05:00 72 20 168/83 96 07/11/17 05:00 62 07/11/17 04:00 65 07/11/17 03:00 62 07/11/17 02:00 60 07/11/17 01:00 62 07/11/17 00:00 65 07/10/17 23:00 62 07/10/17 22:00 60 07/10/17 21:13 99 21 07/10/17 21:00 62 07/10/17 20:00 98.1 77 20 162/73 99 07/10/17 20:00 67 07/10/17 19:00 64 07/10/17 18:00 66 07/10/17 17:00 64 07/10/17 16:30 98.1 60 20 132/57 99 07/10/17 16:00 60 07/10/17 15:00 80 07/10/17 14:00 72 07/10/17 13:00 62 07/10/17 12:00 60 07/10/17 11:30 100 Room Air 07/10/17 11:00 80 07/10/17 11:00 98.7 100 20 140/64 96 07/10/17 10:00 98 07/10/17 07/10/17 07/11/17 14:59 22:59 06:59 Intake Total 880 ml 480 ml Output Total 1000 ml 1600 ml Balance -120 ml -1120 ml Intake Oral 880 ml 480 ml Output Urine Total 1000 ml 1600 ml Result Diagram: 07/11/17 0603 07/11/17 06 Other Results Laboratory Tests Test 07/09/17 07/09/17 07/09/17 07/09/17 11:11 13:35 14:20 20:02 Blood Gas Puncture Site RT RADIAL Blood Gas Patient Temperature 98.6 Blood Gas HCO3 20 mmol/L Blood Gas Base Excess -5.0 mmol/L Blood Gas Oxygen Saturation 96 % Arterial Blood pH 7.31 Arterial Blood Partial 41 mmHg Pressure CO2 Arterial Blood Partial 153 mmHG Pressure O2 Arterial Blood Oxygen Content 11.3 Vol % Arterial Blood 2.4 % Carboxyhemoglobin Arterial Blood Methemoglobin 0.6 % Blood Gas Hemoglobin 8.1 G/DL Oxygen Delivery Device BIPAP Blood Gas Ventilator Setting IPAP12/EPAP5 Blood Gas Inspired Oxygen 40 % Troponin I 0.08 NG/ML 0.07 NG/ML Nasal Screen MRSA (PCR) MRSA DETECTED Phosphorus Level 4.7 MG/DL Magnesium Level 2.2 MG/DL Test 07/11/17 06:03 White Blood Count 5.9 TH/MM3 Red Blood Count 2.63 MIL/MM3 Hemoglobin 8.2 GM/DL Hematocrit 24.3 % Mean Corpuscular Volume 92.6 FL Mean Corpuscular Hemoglobin 31.1 PG Mean Corpuscular Hemoglobin 33.6 % Concent Red Cell Distribution Width 15.7 % Platelet Count 327 TH/MM3 Mean Platelet Volume 6.4 FL Neutrophils (%) (Auto) 85.7 % Lymphocytes (%) (Auto) 11.0 % Monocytes (%) (Auto) 3.3 % Eosinophils (%) (Auto) 0.0 % Basophils (%) (Auto) 0.0 % Neutrophils # (Auto) 5.0 TH/MM3 Lymphocytes # (Auto) 0.6 TH/MM3 Monocytes # (Auto) 0.2 TH/MM3 Eosinophils # (Auto) 0.0 TH/MM3 Basophils # (Auto) 0.0 TH/MM3 CBC Comment DIFF FINAL Differential Comment Prothrombin Time 70.2 SEC Prothromb Time International 5.9 RATIO Ratio Sodium Level 134 MEQ/L Potassium Level 4.3 MEQ/L Chloride Level 103 MEQ/L Carbon Dioxide Level 21.3 MEQ/L Anion Gap 10 MEQ/L Blood Urea Nitrogen 42 MG/DL Creatinine 1.37 MG/DL Estimat Glomerular Filtration 38 ML/MIN Rate Random Glucose 110 MG/DL Calcium Level 8.0 MG/DL Magnesium Level 2.1 MG/DL Imaging Last Impressions Chest X-Ray 07/10/17 0600 Signed Impressions: Service Date/Time: Monday, July 10, 2017 04:38 - CONCLUSION: Improved bilateral parenchymal opacities with some residual indistinctness of the bronchopulmonary markings. Probable small left pleural effusion. Angelito Rossi MD Objective Remarks General: NAD, AAOx3 Chest: CTA Cardiac: Regular Abd: +BS, soft ND/NT Ext: No edema, chronic wound on right medial ankle, no purulent drainage noted A/P Problem List: (1) Acute hypoxemic respiratory failure Status: Acute Plan: - Pt is a 71 y/o female with CAD s/p LHC with BMS placed in the RCA on 05/22/17, previous DVT of her right lower extremity on Coumadin, questionable COPD, CAD, PVD, HTN and an active smoker who presented to the ED on 07/09/17 with severe shortness of breath and uncontrolled hypertension - Her initial blood pressure in ED was 236/100, with severe dyspnea and room air saturations in the 70s. She was immediately placed on BiPAP with improvement in respiratory status. - EKG shows no acute changes. - At admission her labs indicated Creat 1.3, BNP 1611 and INR 1.7. - Chest x-ray (07/09)--> bilateral pulmonary edema. - Patient was given IV Lasix 40 mg and continued on 40mg Q12H and IV Albumin - Pt was admitted to the ICU under the care of the intensivists. - She was placed on a nitro drip for hypertensive emergency and CHF exacerbation - She was continued on her home dose of metoprolol. Norvasc 5mg daily was added. Home dose of Lisinopril was held for diuresis. - Labetalol IV PRN for SBP more than 160 - 2D echo (05/17) --> EF 45-50%, LA is [id number] dilated, RA mild-to- moderately dilated, mild mitral valve regurg, aortic valve sclerosis, mild tricuspid regurg, moderate pulmonary HTN (60-70mmHg) - Limited 2D echo (07/11) --> EF 50-55%, LV wall thickness is upper limits of normal, - 2-D echo approximately 2 months ago showed EF 45-50% no wall motion abnormalities - She was given Solu-Medrol 125mg IV in the ED and continued on Solu-Medrol 40mg Q12H - Pt was started on Azithromycin IV from 07/09-07/10, - Pt continued on Plavix, ASA, and Coumadin. - Convert IV to PO Lasix on 07/10 - Convert Solu-Medrol to po Prednisone on 07/10 and will taper quickly as the pt complains of feeling gittery and unable to sleep - Appreciate Wound care recommendations - Pt recommended for HHC/PT and wound care - Anticipate discharge once INR improves (2) CHF exacerbation Status: Acute Plan: - See above. (3) Hypertensive emergency Status: Acute Plan: - BP improving - Pt is off Nitro gtt. - Cont. Metoprolol 50mg Q12H, Lisinopril 5mg po daily, and Norvasc 5 mg po daily - Monitor (4) Hx of deep venous thrombosis Status: Chronic Plan: - Pt with hx of RLE DVT and has had IVC filter placed previously - [facility] (05/18) --> Occlusive and nonocclusive deep venous thrombosis in the right superficial femoral vein and right popliteal vein. Negative left lower extremity. - INR 5.9 today - Hold Coumadin - Repeat labs at 1300 today and in AM (5) CKD (chronic kidney disease) stage 3, GFR 30-59 ml/min Status: Chronic Plan: - Labs are stable - Monitor during diuresis (6) HTN (hypertension) Status: Chronic Plan: - See above. (7) CAD (coronary artery disease) Status: Chronic Plan: - See above. (8) PAD (peripheral artery disease) Status: Chronic Plan: - Pt has had previous stenting to the RLE Assessment and Plan Patient examined. Assessment and plan formulated with Alexus Gibson PA-C. I agree with the above. Problem Qualifiers (1) CHF exacerbation: (2) HTN (hypertension): (3) CAD (coronary artery disease): Alexus Gibson Jul 11, 2017 09:48 Elliott Ray DO Jul 16, 2017 22:58
[2017-07-11 12:42] LABS: INTERNATIONAL NORMALIZED RATIO 5.2 RATIO; PROTHROMBIN TIME - PATIENT 61.9 SEC (9.8-11.6)
[2017-07-11] MEDS ORDERED: PHYTONADIONE 5 MG TAB PO ONE (14:00)
[2017-07-11] MEDS: CHLORHEXIDINE 0.12% (ORAL KIT) 15 ML CUP MT SCH (20:00)
[2017-07-11] MEDS: MIRTAZAPINE 15 MG TAB PO SCH (21:00)
[2017-07-11] MEDS: ACETAMINOPHEN 325 MG TAB PO PRN (21:26)
[2017-07-11] MEDS: ATORVASTATIN 20 MG TAB PO SCH (21:26)
[2017-07-11] MEDS ORDERED: TEMAZEPAM 15 MG CAP PO PRN (21:45)
[2017-07-11] MEDS ORDERED: ACETAMINOPHEN/CODEINE 300 MG/30 MG TAB PO ONE (21:45)
[2017-07-12] VITALS (17 sets, daily range): BP systolic 127–166; BP diastolic 57–77; PULSE 56–64; RESP 18; TEMP 98.5–98.6; O2SAT 97–99
[2017-07-12] MEDS: RESP: ALBUTEROL 2.5 MG/IPRATROPIUM 0.5 MG NEB (SCH) NEB ×2 (03:55→08:41)
[2017-07-12] MEDS: CHLORHEXIDINE GLUCONATE 2 % 1 PACK (2 CLOTHS) TOP SCH (04:00)
[2017-07-12 06:55] LABS: INTERNATIONAL NORMALIZED RATIO 1.6 RATIO; PROTHROMBIN TIME - PATIENT 18.3 SEC (9.8-11.6)
[2017-07-12 07:14] LABS: BICARBONATE 24.3 MEQ/L (21.0-32.0); POTASSIUM 4.3 MEQ/L (3.5-5.1)
[2017-07-12 07:19] LABS: INDIRECT BILIRUBIN 0.1 MG/DL (0.0-0.8); TOTAL BILIRUBIN ADULT 0.2 MG/DL (0.2-1.0)
[2017-07-12] MEDS: PANTOPRAZOLE SODIUM 40 MG VIAL IV SCH (08:20)
[2017-07-12] MEDS: REMOVE OLD PATCH T-DERMAL SCH (08:20)
[2017-07-12] MEDS: HYDROXYCHLOROQUINE SULFATE 200 MG TAB PO SCH (08:20)
[2017-07-12] MEDS: METOPROLOL TARTRATE 50 MG TAB PO SCH (08:20)
[2017-07-12] MEDS: ASPIRIN EC 81 MG TABEC PO SCH (08:20)
[2017-07-12] MEDS: SERTRALINE HCL 50 MG TAB PO SCH (08:20)
[2017-07-12] MEDS: NICOTINE 14 MG/24 HR PATCH T-DERMAL SCH (08:20)
[2017-07-12] MEDS: CLOPIDOGREL 75 MG TAB PO SCH (08:21)
[2017-07-12] MEDS: LISINOPRIL 5 MG TAB PO SCH (08:21)
[2017-07-12] MEDS: POTASSIUM CHLORIDE 20 MEQ CONTROLLED RELEASE TAB PO SCH (08:21)
[2017-07-12] MEDS: BUDESONIDE-FORMOTEROL 160/4.5 MCG INHALER INH SCH (08:21)
[2017-07-12] MEDS: FUROSEMIDE 20 MG TAB PO SCH (08:21)
[2017-07-12] MEDS: amLODIPine BESYLATE 5 MG TAB PO SCH (08:21)
[2017-07-12] MEDS ORDERED: predniSONE 20 MG TAB PO SCH (09:00)
--- NOTE | 2017-07-12 09:07 | HHI.DS ---
Discharge Summary Admission Date Jul 09, 2017 at 10:47 Discharge Date: Jul 12, 2017 Admitting Diagnosis acute decompensated heart failure (1) Acute hypoxemic respiratory failure Diagnosis: Principal (2) CHF exacerbation Diagnosis: Principal (3) Hypertensive emergency Diagnosis: Secondary (4) Hx of deep venous thrombosis Diagnosis: Secondary (5) CKD (chronic kidney disease) stage 3, GFR 30-59 ml/min Diagnosis: Secondary (6) HTN (hypertension) Diagnosis: Secondary (7) CAD (coronary artery disease) Diagnosis: Secondary (8) PAD (peripheral artery disease) Diagnosis: Secondary Brief History This 71-year-old woman with past medical history significant for coronary artery disease status post RCA stent April 2017, peripheral arterial disease, history of lower extremity DVT on chronic Coumadin, probable COPD and continued smoking, who presented to the emergency department with severe shortness of breath and uncontrolled hypertension. She had abrupt onset of shortness of breath this am. Initial blood pressure in ED was 236/100, with severe dyspnea and room air saturations in the 70s. Patient was immediately placed on BiPAP with improvement in respiratory status. Patient recently had cardiac cath and RCA stent in Apr 2017. She is aspirin and Plavix for CAD and peripheral arterial disease, on Coumadin for previous DVT. EKG shows no acute changes. Creat 1.3, BNP 1611 and INR 1.7. Initial troponin negative. Chest x-ray showed bilateral pulmonary edema. Patient was given IV Lasix 40 mg and is making urine now. I evaluated the patient in the ED. She is in mod distress on BiPAP, but improving gradually. Remains on Nitro drip for BP control. I have started scheduled IV Lasix and PRN IV labetalol and hydralazine for blood pressure control. I have also placed the patient on when necessary breathing treatments , scheduled IV Solu-Medrol and azithromycin. Limited 2 D Echo ordered. Prev Echo in April 2017, EF 45-50% CBC/BMP: 07/11/17 0603 07/12/17 0602 Significant Findings Laboratory Tests Test 07/09/17 07/09/17 07/09/17 07/09/17 09:12 11:11 13:35 20:02 Red Blood Count 2.85 MIL/MM3 (4.00-5.30) Hemoglobin 8.9 GM/DL (11.6-15.3) Hematocrit 26.6 % (35.0-46.0) Mean Platelet Volume 6.1 FL (7.0-11.0) Neutrophils (%) (Auto) 72.6 % (16.0-70.0) Prothrombin Time 19.4 SEC (9.8-11.6) Activated Partial 39.5 SEC Thromboplast Time (24.3-30.1) Sodium Level 135 MEQ/L (136-145) Blood Urea Nitrogen 28 MG/DL (7-18) Creatinine 1.32 MG/DL (0.50-1.00) Estimat Glomerular Filtration 40 ML/MIN (>89) Rate Random Glucose 131 MG/DL (74-106) Calcium Level 7.2 MG/DL (8.5-10.1) Protein Corrected Calcium 7.7 MG/DL (8.5-10.1) Troponin I LESS THAN 0.02 0.08 NG/ML 0.07 NG/ML NG/ML (0.02-0.05) (0.02-0.05) (0.02-0.05) B-Type Natriuretic Peptide 1611 PG/ML (0-100) Total Protein 6.1 GM/DL (6.4-8.2) Albumin 2.6 GM/DL (3.4-5.0) Blood Gas HCO3 20 mmol/L (22-26) Blood Gas Base Excess -5.0 mmol/L (-2-2) Arterial Blood pH 7.31 (7.380-7.420) Arterial Blood Partial 153 mmHG Pressure O2 (61-120) Arterial Blood Oxygen Content 11.3 Vol % (12.0-20.0) Blood Gas Hemoglobin 8.1 G/DL (12.0-16.0) Test 07/11/17 07/11/17 07/12/17 06:03 12:22 06:02 Red Blood Count 2.63 MIL/MM3 (4.00-5.30) Hemoglobin 8.2 GM/DL (11.6-15.3) Hematocrit 24.3 % (35.0-46.0) Mean Platelet Volume 6.4 FL (7.0-11.0) Neutrophils (%) (Auto) 85.7 % (16.0-70.0) Lymphocytes # (Auto) 0.6 TH/MM3 (1.0-4.8) Prothrombin Time 70.2 SEC 61.9 SEC 18.3 SEC (9.8-11.6) (9.8-11.6) (9.8-11.6) Sodium Level 134 MEQ/L 135 MEQ/L (136-145) (136-145) Blood Urea Nitrogen 42 MG/DL (7-18) 48 MG/DL (7-18) Creatinine 1.37 MG/DL 1.60 MG/DL (0.50-1.00) (0.50-1.00) Estimat Glomerular Filtration 38 ML/MIN (>89) 32 ML/MIN (>89) Rate Random Glucose 110 MG/DL (74-106) Calcium Level 8.0 MG/DL 7.6 MG/DL (8.5-10.1) (8.5-10.1) Total Protein 6.0 GM/DL (6.4-8.2) Albumin 3.2 GM/DL (3.4-5.0) Imaging Last Impressions Chest X-Ray 07/10/17 0600 Signed Impressions: Service Date/Time: Monday, July 10, 2017 04:38 - CONCLUSION: Improved bilateral parenchymal opacities with some residual indistinctness of the bronchopulmonary markings. Probable small left pleural effusion. Angelito Rossi MD PE at Discharge General: NAD, AAOx3 Chest: CTA Cardiac: Regular Abd: +BS, soft ND/NT Ext: No edema, chronic wound on right medial ankle, no purulent drainage noted Hospital Course Acute hypoxemic respiratory failure/CHF exacerbation - Pt is a 71 y/o female with CAD s/p LHC with BMS placed in the RCA on 05/22/17, previous DVT of her right lower extremity on Coumadin, questionable COPD, CAD, PVD, HTN and an active smoker who presented to the ED on 07/09/17 with severe shortness of breath and uncontrolled hypertension - Her initial blood pressure in ED was 236/100, with severe dyspnea and room air saturations in the 70s. She was immediately placed on BiPAP with improvement in respiratory status. - EKG shows no acute changes. - At admission her labs indicated Creat 1.3, BNP 1611 and INR 1.7. - Chest x-ray (07/09)--> bilateral pulmonary edema. - Patient was given IV Lasix 40 mg and continued on 40mg Q12H and IV Albumin - Pt was admitted to the ICU under the care of the intensivists. - She was placed on a nitro drip for hypertensive emergency and CHF exacerbation - She was continued on her home dose of metoprolol. Norvasc 5mg daily was added. Home dose of Lisinopril was held for diuresis. - 2D echo (05/17) --> EF 45-50%, LA is [id number] dilated, RA mild-to- moderately dilated, mild mitral valve regurg, aortic valve sclerosis, mild tricuspid regurg, moderate pulmonary HTN (60-70mmHg) - Limited 2D echo (07/11) --> EF 50-55%, LV wall thickness is upper limits of normal, - She was given Solu-Medrol 125mg IV in the ED and continued on Solu-Medrol 40mg Q12H. Solu-Medrol was converted to po Prednisone on 07/10 and will taper quickly as the pt complains of feeling gittery and unable to sleep - Pt was given Azithromycin IV from 07/09-07/10 - Pt continued on Plavix, ASA, and Coumadin. - Lasix was converted from IV to PO Lasix 20mg BID on 07/10. She had a bump in her Creatinine to 1.6 on 07/12 so she will be discharged on a decreased dose of Lasix 20mg po daily with close monitoring as an outpt We will set up HHC/PT upon discharge. She will have a repeat CBC, BMP, Mg+, PT/ INR on 07/14/17 and then BMP and PT/INR on Monday with results to her PCP. Dr. Gay. - Pt was seen by wound care during this admission for a chronic right ankle wound and a wound from a previous sink biopsy on her right thigh from 12/2016. Wound care instructions for HHC/PT are: - Cleanse right medial malleolus with NS and gauze. Apply cut Maxorb II into wound bed and cover with bordered gauze every 3-5 days. - Gently cleanse right medial thigh wound with NS and gauze, use iodoform packing strip to lightly pack wound every other day and cover with gauze and paper tape. - Pt encouraged to stop smoking Hypertensive emergency - BP improving - Cont. Metoprolol 50mg Q12H, Lisinopril 5mg po daily, and Norvasc 5 mg po daily (new) at discharge Hx of deep venous thrombosis - Pt with hx of RLE DVT and has had IVC filter placed previously - [facility] (05/18) --> Occlusive and nonocclusive deep venous thrombosis in the right superficial femoral vein and right popliteal vein. Negative left lower extremity. - INR 5.9 on 07/11/17 and Coumadin was held. - Repeat labs on 07/12 with INR 1.6. - Pt will be resumed on Coumadin 5mg po daily. - She will have repeat INR on Monday07/14/17 and Monday07/17/[address] Gay CKD (chronic kidney disease) stage 3, GFR 30-59 ml/min - Pts Lisinopril was held initially due to diuresis. This was resumed on 07/10. - Pts Cr bumped to 1.6, BUN 48, GFR 32 on 07/12. - Lasix will be decreased to 20mg po daily upon discharge. - Labs will be repeated on Saturday 07/14 and Tuesday 07/[address] Gay Iron Deficiency Anemia - Pt with a hx of iron deficiency anemia - Labs on 07/11 wth Hgb 8.2/Hct 24.3 - No noted active GIB noted - Pt recommended to followup as an outpt with GI - Recheck CBC on Monday, 07/14 Pt will need followup with her PCP. Dr. Gay, in 1 week Pt will need to followup with [facility] for evaluation of her iron deficiency anemia in 3 weeks Pt recommended to followup with Vascular Surgery 3-4 weeks, regarding her chronic wounds to the RLE Pt recommended to followup with Pulmonology, Dr. Hector Guzmán, in 2 weeks. Pt Condition on Discharge: Stable Discharge Disposition: Disch w/ Home Health Serv Discharge Instructions DIET: Follow Instructions for: Coumadin (Warfarin) Diet Activities you can perform: Regular-No Restrictions Follow up Referrals: Cardiology - [address] Alexey Salcedo Gastroenterology - 3 Weeks with Fish Lilly MD PCP Follow-up - [address] Malcolm Gay Pulmonology - 2 Weeks with Cal Guzmán MD New Medications: Amlodipine (Norvasc) 5 Mg Tab 5 MG PO DAILY for htn, #30 TAB Budesonide-Formoterol Inh (Symbicort Inh) 160-4.5 Mcg/Act Aero 1 PUFF INH Q12HR for copd, #1 INHALER 0 Refills Furosemide (Furosemide) 20 Mg Tab 20 MG PO DAILY for chf, #30 TAB 0 Refills Nicotine (Eq Nicotine) 14 Mg/24 Hr Dis 1 PATCH T-DERMAL DAILY for tobacco for 30 Days, PATCH 0 Refills Prednisone (Prednisone) 20 Mg Tab 20 MG PO DAILY for copd, #3 TAB 0 Refills Continued Medications: Aspirin DR (Aspir-81) 81 Mg Tabdr 81 MG PO DAILY for cad, #0 TAB Atorvastatin (Lipitor) 20 Mg Tab 20 MG PO HS for Cholesterol Management, #30 TAB 0 Refills Cholecalciferol (Vitamin D-3) 2,000 Unit Tab Clopidogrel (Plavix) 75 Mg Tab 75 MG PO DAILY for stent, #30 TAB Hydroxychloroquine (Plaquenil) 200 Mg Tab 200 MG PO DAILY, #30 TAB 0 Refills Take with food Lisinopril (Lisinopril) 5 Mg Tab 5 MG PO DAILY for Blood Pressure Management, #30 TAB 0 Refills Metoprolol Tartrate (Lopressor) 50 Mg Tab 50 MG PO Q12HR for cad, #60 TAB 3 Refills Mirtazapine (Mirtazapine) 30 Mg Tab 30 MG PO HS for Depression Control, #30 TAB 0 Refills Sertraline (Sertraline) 50 Mg Tab 50 MG PO DAILY, #30 TAB 0 Refills Warfarin (Coumadin) 5 Mg Tab 5 MG PO DAILY for Blood Clot Prevention, #30 TAB 0 Refills Discontinued Medications: Acetaminophen-Codeine (Tylenol-Codeine #3) 300-30 mg Tab 1 TAB PO Q4H PRN for PAIN, TAB 0 Refills Ferrous Sulfate (Iron) 325 Mg Cap 65 MG PO TIDPC for Nutritional Supplement, #90 TAB 0 Refills Lactobacillus Acidophilus (Probiotic) 1 Cap Cap 1 CAP PO TIDAC for Nutritional Supplement, #90 CAP 0 Refills Multiple Vitamins W/ Minerals (Multi For Her) 1 Tab Tab Additional Information Patient examined. Assessment and plan formulated with Alexus Gibson PA-C. I agree with the above. Alexus Gibson Jul 12, 2017 09:06 Elliott Ray DO Jul 16, 2017 23:10
[2017-07-12] MEDS ORDERED: AMLO5 PO (09:14)
[2017-07-12] MEDS ORDERED: PRED20 PO (09:14)
[2017-07-12] MEDS ORDERED: NICO14DI23 T-DERMAL (09:14)
[2017-07-12] MEDS ORDERED: SYMB160A INH (09:14)
[2017-07-12] MEDS ORDERED: FURO20TA PO (09:14)
[2017-07-12 12:06] LABS: TRANSFERRIN IRON PROFILE 124 MG/DL (200-360)
[2017-07-12 12:08] LABS: FERRITIN 693 NG/ML (8-252)
--- NOTE | 2017-07-12 15:44 | RADRPT ---
EXAM DATE/TIME: 07/12/2017 14:29 [facility] COMPARISON: CHEST SINGLE AP, July 10, 2017, 4:38. INDICATIONS : Short of breath, congestive heart failure. RADIATION DOSE: 3.31 CTDIvol (mGy) MEDICAL HISTORY : Hypertension. Deep venous thrombosis. Myocardial infarction. Peripheral Artery Desease, Kidney stones . SURGICAL HISTORY : Coronary artery stent. Parathyroid sx. ENCOUNTER: Initial ACUITY: 1 day PAIN SCALE: 4/10 LOCATION: Bilateral chest TECHNIQUE: Volumetric scanning of the chest was performed. Using automated exposure control and adjustment of t he mA and/or kV according to patient size, radiation dose was kept as low as reasonably achievable to obtain optimal diagnostic quality images. DICOM format image data is available electronically for r eview and comparison. Follow-up recommendations for detected pulmonary nodules are based at a minimum on nodule size and pa tient risk factors according to Fleischner Society Guidelines. FINDINGS: LUNGS: There is no pneumothorax. No concerning pulmonary nodule is visualized. There is mild consolidation in the left lower lobe with air bronchograms. PLEURAE: There are small bilateral pleural effusions left greater than right. There are calcified pleural plaq ues bilaterally as well. MEDIASTINUM: The heart and great vessels demonstrate no acute abnormality. There is no mediastinal or hilar lymph adenopathy. AXILLAE: Within normal limits. No lymphadenopathy. MUSCULOSKELETAL: Within normal limits for patient age. MISCELLANEOUS: The visualized upper abdominal organs demonstrate no acute abnormality. Parenchymal calcification is noted in the left kidney. An inferior vena caval filter is present. CONCLUSION: 1. Small bilateral pleural effusions left greater than right. 2. Mild consolidation in the left lower lobe with air bronchograms. 3. Bilateral calcified pleural plaques. Rakesh Staton MD on July 12, 2017 at 15:31 Board Certified Radiologist. This report was verified electronically.
[2017-07-12] MEDS ORDERED: WARFARIN SOD 4 MG TAB PO SCH (16:00)
--- NOTE | 2017-07-16 22:58 | HHI.DS ---
Discharge Summary Admission Date Jul 09, 2017 at 10:47 Admitting Diagnosis acute decompensated heart failure (1) Acute hypoxemic respiratory failure ICD Codes: J96.01 - Acute respiratory failure with hypoxia Status: Acute (2) CHF exacerbation ICD Codes: I50.9 - Heart failure, unspecified Status: Acute (3) Hypertensive emergency ICD Codes: I16.1 - Hypertensive emergency Status: Acute (4) Hx of deep venous thrombosis ICD Codes: Z86.718 - Personal history of other venous thrombosis and embolism Status: Chronic (5) CKD (chronic kidney disease) stage 3, GFR 30-59 ml/min ICD Codes: N18.3 - Chronic kidney disease, stage 3 (moderate) Status: Chronic (6) HTN (hypertension) ICD Codes: I10 - Essential (primary) hypertension Status: Chronic (7) CAD (coronary artery disease) ICD Codes: I25.10 - Atherosclerotic heart disease of cahto coronary artery without angina pectoris Status: Chronic (8) PAD (peripheral artery disease) ICD Codes: I73.9 - Peripheral vascular disease, unspecified Status: Chronic Brief History This 71-year-old woman with past medical history significant for coronary artery disease status post RCA stent April 2017, peripheral arterial disease, history of lower extremity DVT on chronic Coumadin, probable COPD and continued smoking, who presented to the emergency department with severe shortness of breath and uncontrolled hypertension. She had abrupt onset of shortness of breath this am. Initial blood pressure in ED was 236/100, with severe dyspnea and room air saturations in the 70s. Patient was immediately placed on BiPAP with improvement in respiratory status. Patient recently had cardiac cath and RCA stent in Apr 2017. She is aspirin and Plavix for CAD and peripheral arterial disease, on Coumadin for previous DVT. EKG shows no acute changes. Creat 1.3, BNP 1611 and INR 1.7. Initial troponin negative. Chest x-ray showed bilateral pulmonary edema. Patient was given IV Lasix 40 mg and is making urine now. I evaluated the patient in the ED. She is in mod distress on BiPAP, but improving gradually. Remains on Nitro drip for BP control. I have started scheduled IV Lasix and PRN IV labetalol and hydralazine for blood pressure control. I have also placed the patient on when necessary breathing treatments , scheduled IV Solu-Medrol and azithromycin. Limited 2 D Echo ordered. Prev Echo in April 2017, EF 45-50% CBC/BMP: 07/12/17 0602 PE at Discharge General: NAD, AAOx3 Chest: CTA Cardiac: Regular Abd: +BS, soft ND/NT Ext: No edema, chronic wound on right medial ankle, no purulent drainage noted Pt Condition on Discharge: Stable Discharge Disposition: Disch w/ Home Health Serv Discharge Instructions DIET: Follow Instructions for: Coumadin (Warfarin) Diet Activities you can perform: Regular-No Restrictions Activities to Avoid: Driving for 24 hrs, Strenuous Activity Elliott Ray DO Jul 16, 2017 22:58
== END 2017-07-12 15:24 | disposition home health service (06) | DRG 189 ==
LOC: NEPE 08:45 → NEDA 10:47 → N03B 14:05 → HCIS 07-10 02:55
PROVIDERS: ADMIT Hospitalist; ATTEND Hospitalist
PROC: 5A09357 Assistance with Respiratory Ventilation, Less than 24 Consecutive Hours, Continuous Positive Airway Pressure (ICD-10-PCS; principal; 2017-07-09)
DX: J96.01 Acute respiratory failure with hypoxia (principal); I13.0 Hypertensive heart and chronic kidney disease with heart failure and stage 1 through stage 4 chronic kidney disease, or unspecified chronic kidney disease; N18.3 Chronic kidney disease, stage 3 (moderate); I50.9 Heart failure, unspecified; I16.1 Hypertensive emergency; J44.1 Chronic obstructive pulmonary disease with (acute) exacerbation; I25.10 Atherosclerotic heart disease of native coronary artery without angina pectoris; Z86.718 Personal history of other venous thrombosis and embolism; I73.9 Peripheral vascular disease, unspecified; Z95.5 Presence of coronary angioplasty implant and graft; Z79.01 Long term (current) use of anticoagulants; Z79.02 Long term (current) use of antithrombotics/antiplatelets; Z79.82 Long term (current) use of aspirin; Z87.442 Personal history of urinary calculi; M06.9 Rheumatoid arthritis, unspecified; F17.210 Nicotine dependence, cigarettes, uncomplicated; S91.001A Unspecified open wound, right ankle, initial encounter; X58.XXXA Exposure to other specified factors, initial encounter
CPT/HCPCS: 36600; 71010; 71250; 80048; 80053; 80076; 82728; 82805; 83540; 83550; 83735; 83880; 84100; 84484; 85025; 85610; 85730; 87641; 93005; 93308; 94002; 94640; 94664; 96365; 96375; C9113; J0360; J0456; J1940; J2930; J7050; J7512; J7613; P9047

== ENCOUNTER 2017-12-14 04:48 | Inpatient (IN) | payer MEDICARE ==
[2017-12-14] VITALS (30 sets, daily range): BP systolic 118–208; BP diastolic 58–101; PULSE 66–106; RESP 0–66; TEMP 95.9–99.7; O2SAT 98–100
[~2017-12-14] VITALS: Ht 157.5 cm; Wt 43.5 kg
[~2017-12-14 04:48] MED LIST changes: +AMLO5 PO; +ASPI81CH7 PO; +CHOL10008 PO; -FERR1TAB52; +FURO20TA PO; -HYDR-3133 PO; +IRON18TA PO; +LIPI20TA PO; +LISI-519 PO; -MULTTAB24; +NICO14DI23 T-DERMAL; -NIFE60TA58 PO; +NIFE60TA8 PO; +PRED20 PO; +SYMB160A INH
[2017-12-14] MEDS ORDERED: methylPREDNISolone SOD SUCC 125 MG/2 ML VIAL IV PUSH ONE (05:00)
--- NOTE | 2017-12-14 05:00 | PD ---
HPI Chief Complaint: Chest Pain Time Seen by Provider: 04:53 Travel History International Travel<30 days: No Contact w/Intl Traveler<30days: No Traveled to known affect area: No History of Present Illness HPI 72yo F with PMH of CAD s/p stent 05/13, diastolic heart failure, COPD, lower ext DVTs on anticoagulation but cant remember what, PAD, lupus, depression, HTN was brought in by [facility] for chest pain and sob. Pt was given aspirin. Pt was wheezing and saturating in the 70s on room air as per [facility]. Pt was given albuterol nebulizer treatment but continue to be tachypneic with respiratory rate in the 50s. Pt then started having altered mental status and pt was intubated by [facility] with ativan 4mg IV and 20mg of etomidate. Pt was admitted 09/03-09/10 for respiratory failure and pneumonia and was intubated by [facility]. Pt was found to be hypothermic as well. Pt has a chronic right ankle wound. PFSH Past Medical History Arthritis: Yes Autoimmune Disease: Yes (lupus, rheumatoid arthritis) Depression: Yes Cancer: No Cardiac Catheterization: Yes (stent x1) Cardiovascular Problems: Yes (HTN) Chest Pain: Yes Diabetes: No Deep Vein Thrombosis: Yes (rt leg) Endocrine: Yes Genitourinary: Yes Hypertension: Yes Immune Disorder: Yes (Lupus) Kidney Stones: Yes Musculoskeletal: Yes Neurologic: No Psychiatric: No Reproductive: No Respiratory: No Myocardial Infarction: Yes Thyroid Disease: Yes (Parathyroid surgery) Triglycerides - High: Yes ?: Not Past Surgical History Abdominal Surgery: No Cardiac Surgery: Yes (cardiac stent) Ear Surgery: No Endocrine Surgery: Yes (parathyroid surgery) Eye Surgery: Yes (bilat cataract) Genitourinary Surgery: No Gynecologic Surgery: No Oral Surgery: No Thoracic Surgery: No Other Surgery: Yes (parathyroid surgery) Social History Alcohol Use: No Tobacco Use: Yes Substance Use: No Allergies-Medications (Allergen,Severity, Reaction): Coded Allergies: cephalexin (Verified Allergy, Unknown, rash, 12/14/17) diatrizoate meglumine (Verified Allergy, Unknown, rash, 12/14/17) fluconazole (Verified Allergy, Unknown, rash, 12/14/17) gadobenic acid (Verified Allergy, Unknown, rash, 12/14/17) gadodiamide (Verified Allergy, Unknown, rash, 12/14/17) gadoteridol (Verified Allergy, Unknown, rash, 12/14/17) iodixanol (Verified Allergy, Unknown, rash, 12/14/17) iohexol (Verified Allergy, Unknown, rash, 12/14/17) pravastatin (Verified Allergy, Unknown, rash, 12/14/17) Reported Meds & Prescriptions Reported Meds & Active Scripts Active Norvasc (Amlodipine Besylate) 5 Mg Tab 5 Mg PO DAILY Lopressor (Metoprolol Tartrate) 50 Mg Tab 50 Mg PO Q12HR Plavix (Clopidogrel Bisulfate) 75 Mg Tab 75 Mg PO DAILY Reported Eliquis (Apixaban) 5 Mg Tab 5 Mg PO BID Iron (Ferrous Sulfate) 18 Mg Tab 65 Mg PO DAILY Lisinopril 5 Mg Tab 5 Mg PO DAILY Mirtazapine 30 Mg Tab 30 Mg PO HS Sertraline (Sertraline HCl) 50 Mg Tab 50 Mg PO DAILY Plaquenil (Hydroxychloroquine Sulfate) 200 Mg Tab 200 Mg PO DAILY Take with food Review of Systems Except as stated in HPI: all other systems reviewed are Neg Physical Exam Narrative GENERAL: 72yo F intubated. SKIN: Focused skin assessment warm/dry. HEAD: Atraumatic. Normocephalic. EYES: Pupils equal and round at 3mm bilaterally. ENT: No nasal bleeding or discharge. Mucous membranes pink and moist. NECK: Trachea midline. No JVD. CARDIOVASCULAR: Regular rate and rhythm. No murmur appreciated. RESPIRATORY: Expiratory wheezing bilaterally. GASTROINTESTINAL: Abdomen soft, non-tender, nondistended. MUSCULOSKELETAL: No obvious deformities. No clubbing. No cyanosis. No edema. NEUROLOGICAL: Intubated and sedated. Data Data Last Documented VS Vital Signs Date Time Temp Pulse Resp B/P (MAP) Pulse Ox O2 Delivery O2 Flow Rate FiO2 12/14/17 06:30 95.9 99 16 208/95 (132) 98 Ventilator 40 Orders Orders Complete Blood Count With Diff (12/14/17 04:53) Basic Metabolic Panel (Bmp) (12/14/17 04:53) Act Partial Throm Time (Ptt) (12/14/17 04:53) Prothrombin Time / Inr (Pt) (12/14/17 04:53) Magnesium (Mg) (12/14/17 04:53) Troponin I (12/14/17 04:53) Electrocardiogram (12/14/17 04:53) Chest, Single Ap (12/14/17 04:53) Albuterol-Ipratropium Neb (Duoneb Neb) (12/14/17 05:00) Ct Brain W/O Iv Contrast(Rout) (12/14/17 ) Arterial Blood Gas (Abg) (12/14/17 ) Methylprednisolone So Succ Inj (Solumedr (12/14/17 05:00) Blood Culture (12/14/17 05:22) Lactic Acid Sepsis Protocol (12/14/17 05:22) Propofol 1000 Mg/100 Ml Inj (Diprivan 10 (12/14/17 05:45) B-Type Natriuretic Peptide (12/14/17 05:37) Furosemide Inj (Lasix Inj) (12/14/17 05:45) Insert Temp Sensing Jordan Cath (12/14/17 05:41) Nitroglycerin 2% Oint (Nitroglycerin 2% (12/14/17 05:45) Nitroglycerin-D5w 50 Mg/250 Ml (Nitrogly (12/14/17 06:45) Admit Order (Ed Use Only) (12/14/17 06:45) Labs Laboratory Tests Test 12/14/17 05:20 12/14/17 05:21 12/14/17 05:41 White Blood Count 11.7 TH/MM3 Red Blood Count 2.65 MIL/MM3 Hemoglobin 8.5 GM/DL Hematocrit 24.5 % Mean Corpuscular Volume 92.5 FL Mean Corpuscular Hemoglobin 32.1 PG Mean Corpuscular Hemoglobin Concent 34.7 % Red Cell Distribution Width 14.0 % Platelet Count 329 TH/MM3 Mean Platelet Volume 6.7 FL Neutrophils (%) (Auto) 72.3 % Lymphocytes (%) (Auto) 18.2 % Monocytes (%) (Auto) 6.2 % Eosinophils (%) (Auto) 2.4 % Basophils (%) (Auto) 0.9 % Neutrophils # (Auto) 8.4 TH/MM3 Lymphocytes # (Auto) 2.1 TH/MM3 Monocytes # (Auto) 0.7 TH/MM3 Eosinophils # (Auto) 0.3 TH/MM3 Basophils # (Auto) 0.1 TH/MM3 CBC Comment DIFF FINAL Differential Comment Prothrombin Time 10.7 SEC Prothromb Time International Ratio 1.1 RATIO Activated Partial Thromboplast Time 29.6 SEC Blood Urea Nitrogen 48 MG/DL Creatinine 1.95 MG/DL Random Glucose 116 MG/DL Calcium Level 7.8 MG/DL Magnesium Level 2.4 MG/DL Sodium Level 138 MEQ/L Potassium Level 3.9 MEQ/L Chloride Level 108 MEQ/L Carbon Dioxide Level 20.5 MEQ/L Anion Gap 10 MEQ/L Estimat Glomerular Filtration Rate 25 ML/MIN Troponin I LESS THAN 0.02 NG/ML B-Type Natriuretic Peptide 1937 PG/ML Blood Gas Puncture Site RT RADIAL Blood Gas Patient Temperature 98.6 Blood Gas HCO3 18 mmol/L Blood Gas Base Excess -8.4 mmol/L Blood Gas Oxygen Saturation 98 % Arterial Blood pH 7.23 Arterial Blood Partial Pressure CO2 45 mmHg Arterial Blood Partial Pressure O2 258 mmHG Arterial Blood Oxygen Content 12.5 Vol % Arterial Blood Carboxyhemoglobin 1.1 % Arterial Blood Methemoglobin 0.5 % Blood Gas Hemoglobin 8.6 G/DL Oxygen Delivery Device VENTILATOR Blood Gas Ventilator Setting PRVC / AC Blood Gas Inspired Oxygen 60 % Lactic Acid Level 0.8 mmol/L MDM Medical Decision Making Medical Screen Exam Complete: Yes Emergency Medical Condition: Yes Interpretation(s) EKG: NSR 80bpm. PVCs. LAD. Q wave V1, V2. ST depression V5, V6. Differential Diagnosis COPD exacerbation vs. CHF exacerbation vs. Pneumonia vs. ACS Narrative Course 72yo F with sob and chest pain intubated by [facility]. CXR showed ET tube and NG tube in good position. Hyperinflated lungs with diffuse increased interstitial markings related to edema. Pt is hypothermic at 93F and given warming blanket. Labs reviewed, WBC 11.7. H/H low at 8.5/24.5 which she has had when she was admitted 09/07/17. Lactic acid 0.8. BUN/creatinine elevated at 48/1.95 which is slightly more than baseline. Pt given lasix 40mg IV and jordan inserted. Also sedated on propofol drip and given nitroglycerin topical. ABG showed metabolic acidosis with pH of 7.23. pO2 is elevated at 258. pCO2 mildly elevated at 45. HCO3 low at 18. This was at 60% Fi O2 so asked respiratory therapist to lower to 40%. CT brain negative. Discussed with Dr. Giron and accepted to his service. Critical Care Narrative Aggregate critical care time was 50 minutes. Time to perform other separately billable procedures was not included in the critical care time. My time did not include minutes spent treating any other patients simultaneously or on activities that did not directly contribute to the patient's treatment. The services I provided to this patient were to treat and/or prevent clinically significant deterioration that could result in: cardiovascular collapse or . I provided critical care services requiring my management, as noted below: Chart data review, documentation time, medication orders and management, vital sign assessments/reviewing monitor data, ordering and reviewing lab tests, ordering and interpreting/reviewing x-rays and diagnostic studies, care of the patient and discussion of the patient with the admitting physicians. Diagnosis Primary Impression: Acute hypoxemic respiratory failure Admitting Information Admitting Physician Requests: it Nupur Maguire DO Dec 14, 2017 05:00
[2017-12-14] MEDS: RESP: ALBUTEROL 2.5 MG/IPRATROPIUM 0.5 MG NEB (SCH) INH (05:13)
--- NOTE | 2017-12-14 05:20 | RADRPT ---
EXAM DATE/TIME: 12/14/2017 05:03 [facility] COMPARISON: CHEST SINGLE AP, September 08, 2017, 10:39. INDICATIONS : Post intubation MEDICAL HISTORY : Hypertension. Lupus. Smoker. SURGICAL HISTORY : Coronary artery stent ENCOUNTER: Initial ACUITY: 1 day PAIN SCORE: Non-responsive. LOCATION: Bilateral chest FINDINGS: The tip of the ET tube is 4 cm from the anabell. The NG tube is directed into the stomach. The heart s ize is normal. There is diffuse interstitial consolidation the costophrenic angles are clear. There a re old right rib fractures. The lungs are hyperinflated. There is an IVC filter present. CONCLUSION: 1. ET tube and NG tube in good position. 2. Hyperinflated lungs with diffuse increased interstitial markings likely related to diffuse process es such as edema or diffuse interstitial disease. Chaim Lin MD on December 14, 2017 at 5:17 Board Certified Radiologist. This report was verified electronically.
[2017-12-14 05:31] LABS: AUTOMATED NEUTROPHIL # 8.4 TH/MM3 (1.8-7.7); BASOPHIL # 0.1 TH/MM3 (0-0.2); BASOPHIL % 0.9 % (0.0-2.0); EOSINOPHIL # 0.3 TH/MM3 (0-0.4); EOSINOPHIL % 2.4 % (0.0-4.0); HEMATOCRIT 24.5 % (35.0-46.0); HEMOGLOBIN 8.5 GM/DL (11.6-15.3); LYMPH % 18.2 % (9.0-44.0); LYMPHOCYTE # 2.1 TH/MM3 (1.0-4.8); MEAN CELL VOLUME 92.5 FL (80.0-100.0); MEAN CORPUSCULAR HEMOGLOBIN 32.1 PG (27.0-34.0); MEAN CORPUSCULAR HGB CONC 34.7 % (32.0-36.0); MEAN PLATELET VOLUME 6.7 FL (7.0-11.0); MONO % 6.2 % (0.0-8.0); MONOCYTE # 0.7 TH/MM3 (0-0.9); NEUT % 72.3 % (16.0-70.0); PLATELET COUNT 329 TH/MM3 (150-450); RED BLOOD COUNT 2.65 MIL/MM3 (4.00-5.30); WHITE BLOOD COUNT 11.7 TH/MM3 (4.0-11.0)
[2017-12-14 05:41] LABS: INTERNATIONAL NORMALIZED RATIO 1.1 RATIO; PROTHROMBIN TIME - PATIENT 10.7 SEC (9.8-11.6)
[2017-12-14] MEDS ORDERED: FUROSEMIDE 40 MG/4 ML VIAL IV PUSH ONE (05:45)
[2017-12-14] MEDS ORDERED: NITROGLYCERIN 2% OINT 1 GM PACKET TOPICAL ONE (05:45)
[2017-12-14] MEDS: PROPOFOL 1000 MG/100 ML INJ 100 ML IV PRN ×3 (06:06→23:23)
[2017-12-14 06:08] LABS: BICARBONATE 20.5 MEQ/L (21.0-32.0); BLOOD UREA NITROGEN 48 MG/DL (7-18); CALCIUM 7.8 MG/DL (8.5-10.1); CHLORIDE 108 MEQ/L (98-107); CREATININE 1.95 MG/DL (0.50-1.00); GLOMERULAR FILTRATION RATE 25 ML/MIN (>89); GLUCOSE,RANDOM 116 MG/DL (74-106); MAGNESIUM 2.4 MG/DL (1.5-2.5); SODIUM (NA) 138 MEQ/L (136-145)
[2017-12-14 06:12] LABS: TROPONIN I LESS THAN 0.02 NG/ML (0.02-0.05)
--- NOTE | 2017-12-14 06:34 | RADRPT ---
EXAM DATE/TIME: 12/14/2017 06:08 [facility] COMPARISON: CT BRAIN W/O CONTRAST, September 03, 2017, 4:29. INDICATIONS : Altered mental status. RADIATION DOSE: 52.13 CTDIvol (mGy) MEDICAL HISTORY : Hypertension. Cardiovascular disease SURGICAL HISTORY : None. ENCOUNTER: Initial ACUITY: 1 day PAIN SCALE: Non-responsive LOCATION: cranial TECHNIQUE: Multiple contiguous axial images were obtained of the head. Using automated exposure control and adj ustment of the mA and/or kV according to patient size, radiation dose was kept as low as reasonably a chievable to obtain optimal diagnostic quality images. DICOM format image data is available electro nically for review and comparison. FINDINGS: CEREBRUM: The ventricles and cortical sulci are mildly widened. No evidence of midline shift, mass lesion, hemo rrhage or acute infarction. No extra-axial fluid collections are seen. POSTERIOR FOSSA: The cerebellum and brainstem are intact. The 4th ventricle is midline. The cerebellopontine angle i s unremarkable. EXTRACRANIAL: The visualized portion of the orbits is intact. SKULL: The calvaria is intact. No evidence of skull fracture. CONCLUSION: 1. No acute abnormality seen. 2. Mild atrophy. Chaim Lin MD on December 14, 2017 at 6:28 Board Certified Radiologist. This report was verified electronically.
[2017-12-14] MEDS ORDERED: NITROGLYCERIN-D5W 50 MG/250 ML 250 ML IV ONE (06:45)
[2017-12-14] MEDS ORDERED: APIX5TAB PO (07:06)
[2017-12-14] MEDS ORDERED: RESP: ALBUTEROL 2.5 MG/3 ML NEB (PRN) INH (07:15)
[2017-12-14] MEDS ORDERED: CHLORHEXIDINE GLUCONATE 2 % 1 PACK (2 CLOTHS) TOP PRN (07:15)
[2017-12-14] MEDS ORDERED: MISCELLANEOUS NURSING INFORMATION XX SCH (07:15)
[2017-12-14] MEDS: AZITHROMYCIN INJ 500 MG in SODIUM CHLOR 0.9% 250 ML INJ 250 ML IV SCH (07:39)
[2017-12-14] MEDS: RESP: ALBUTEROL 2.5 MG/IPRATROPIUM 0.5 MG NEB (SCH) NEB ×5 (08:00→23:28)
[2017-12-14] MEDS: CHLORHEXIDINE 0.12% (ORAL KIT) 15 ML CUP MT SCH ×2 (08:00→20:00)
[2017-12-14 08:06] LABS: BILIRUBIN, URINE NEG (NEG); BLOOD, URINE TRACE (NEG); GLUCOSE,URINE NEG (NEG); KETONE, URINE NEG (NEG); MUCUS URINE FEW /lpf (OCC); NITRITE,URINE NEG (NEG); PH, URINE 6.5 (5.0-8.5); URINE COLOR LIGHT-YELLOW (YELLW/STRAW); URINE LEUKOCYTE ESTERASE NEG (NEG)
[2017-12-14] MEDS: FAMOTIDINE 20 MG/2 ML VIAL IV PUSH SCH ×2 (08:52→21:22)
[2017-12-14] MEDS: SODIUM CHLORIDE 0.9% FLUSH 10 ML FLUSH IV FLUSH SCH ×2 (08:52→21:22)
[2017-12-14] MEDS: PIPERACIL-TAZO 3.375 GM PREMIX 50 ML IV SCH ×2 (08:52→17:14)
--- NOTE | 2017-12-14 12:18 | HHI.HP ---
HPI Service Critical Care Medicine Primary Care Physician Malcolm Gay MD Admission Diagnosis Acute respiratory failure, pulmonary edema Diagnosis: (1) Acute hypoxemic respiratory failure Diagnosis: Principal (2) Sepsis Diagnosis: Principal (3) COPD with acute exacerbation Diagnosis: Principal (4) Pneumonia Diagnosis: Principal (5) CHF exacerbation Diagnosis: Principal (6) Pulmonary hypertension due to COPD Diagnosis: Secondary (7) PAD (peripheral artery disease) Diagnosis: Secondary (8) COPD (chronic obstructive pulmonary disease) Diagnosis: Secondary (9) Chronic anticoagulation Diagnosis: Secondary (10) Anemia Diagnosis: Secondary (11) HTN (hypertension) Diagnosis: Secondary (12) Hx of deep venous thrombosis Diagnosis: Secondary (13) CAD (coronary artery disease) Diagnosis: Secondary (14) Rheumatoid arthritis Diagnosis: Secondary (15) CKD (chronic kidney disease) stage 3, GFR 30-59 ml/min Diagnosis: Secondary Chief Complaint: Acute hypoxemic respiratory failure Travel History International Travel<30 Days: No Contact w/Intl Traveler <30 Da: No Traveled to Known Affected Are: No Sepsis Criteria SIRS Criteria (2 or more): Temp > 100.9 or < 96.8, RR > 20 or PaCO2 < 32 Sepsis Criteria (SIRS+source): Infect source susp/known Severe Sepsis (+one): Organ Dysfunction, Hypoperfusion, Acute Oliguria/Renal Failure Criteria Outcome: Meets severe sepsis criteria History of Present Illness Patient is a 72-year-old female with past medical history of CAD s/p stent 05/13 , diastolic heart failure, COPD, lower ext DVTs on anticoagulation with Eliquis , PAD, lupus, depression, and hypertension was brought in by [facility]. Patient had Oxygen saturation was 70s on room air as per [facility]. Despite breathing treatments patient continued to deteriorate with respiratory rate in 50s and hypoxemic and patient was intubated by [facility] after Ativan 4mg IV and 20mg of etomidate. In the ER patient was evaluated by Dr. Maguire. Received Solu-Medrol and breathing treatments, also IV Lasix 40 mg 1. Chest x-ray showed Hyperinflated lungs with diffuse increased interstitial markings related to edema. Pt was also hypothermic at 93, WBC 11.7. BUN/creatinine elevated at 48/ 1.95 baseline 1.3 to 1.6. Pt given Lasix 40mg IV and Thompson inserted. Also sedated on propofol drip and given nitroglycerin topical. ABG - pH of 7.23. pO2 - 258. pCO2 45. HCO3 low at 18 on 60% I evaluated the patient in the ICU. Patient's respiratory failure seems to be secondary to combination of pneumonia COPD exacerbation and underlying CHF. However with probable pneumonia and sepsis (leukocytosis, hypothermia, bilateral interstitial infiltrates) I will hold on further diuresis. Continue gentle hydration with normal saline at 75 ML per hour. IV Solu-Medrol and breathing treatments. Zosyn and azithromycin for pneumonia Review of Systems ROS Limitations: Intubated Past Family Social History Allergies: Coded Allergies: cephalexin (Verified Allergy, Unknown, rash, 12/14/17) diatrizoate meglumine (Verified Allergy, Unknown, rash, 12/14/17) fluconazole (Verified Allergy, Unknown, rash, 12/14/17) gadobenic acid (Verified Allergy, Unknown, rash, 12/14/17) gadodiamide (Verified Allergy, Unknown, rash, 12/14/17) gadoteridol (Verified Allergy, Unknown, rash, 12/14/17) iodixanol (Verified Allergy, Unknown, rash, 12/14/17) iohexol (Verified Allergy, Unknown, rash, 12/14/17) pravastatin (Verified Allergy, Unknown, rash, 12/14/17) Past Medical History Coronary disease status post stent to the RCA 05/[address] Moody Chronic diastolic heart failure, Pulmonary hypertension likely type III, COPD History of lower extremity DVTs Peripheral arterial disease status post stent to the iliac Nephrolithiasis Lupus Depression Chronic warfarin Rheumatoid arthritis Hypertension Dyslipidemia. Past Surgical History Right ankle surgery RCA stent History of transhepatic biliary stent and iliac stent. Reported Medications Prednisone 20 Mg Tab 20 Mg PO DAILY Eq Nicotine (Nicotine) 14 Mg/24 Hr Dis 1 Patch T-DERMAL DAILY 30 Days Furosemide 20 Mg Tab 20 Mg PO DAILY Symbicort Inh (Budesonide/Formoterol Fumarate) 160-4.5 Mcg/Act Aero 1 Puff INH Q12HR Norvasc (Amlodipine Besylate) 5 Mg Tab 5 Mg PO DAILY Aspir-81 (Aspirin) 81 Mg Tabdr 81 Mg PO DAILY Lopressor (Metoprolol Tartrate) 50 Mg Tab 50 Mg PO Q12HR Plavix (Clopidogrel Bisulfate) 75 Mg Tab 75 Mg PO DAILY Prednisone tapering dose Nifedipine ER 24 HR (Nifedipine) 60 Mg Tab 60 Mg PO BID Reported Lipitor (Atorvastatin Calcium) 20 Mg Tab 20 Mg PO HS Lisinopril 5 Mg Tab 5 Mg PO DAILY Vitamin D-3 (Cholecalciferol) 2,000 Unit Tab Coumadin (Warfarin) 5 Mg Tab 5 Mg PO DAILY Mirtazapine 30 Mg Tab 30 Mg PO HS Sertraline (Sertraline HCl) 50 Mg Tab 50 Mg PO DAILY Plaquenil (Hydroxychloroquine Sulfate) 200 Mg Tab 200 Mg PO DAILY Iron (Ferrous Sulfate) 18 Mg Tab 65 Mg PO DAILY Lopressor (Metoprolol Tartrate) 50 Mg Tab 50 Mg PO BID Plaquenil (Hydroxychloroquine Sulfate) 200 Mg Tab 200 Mg PO DAILY Plavix (Clopidogrel Bisulfate) 75 Mg Tab 75 Mg PO DAILY Vitamin D3 (Cholecalciferol) 1,000 Unit Cap Unknown Dose PO DAILY Symbicort Inh (Budesonide/Formoterol Fumarate) 160-4.5 Mcg/Act Aero 1 Puff INH Q12HR Lipitor (Atorvastatin Calcium) 20 Mg Tab 20 Mg PO HS Coumadin (Warfarin) 5 Mg Tab 5 Mg PO DAILY Sertraline (Sertraline HCl) 50 Mg Tab 50 Mg PO DAILY Aspirin Children's (Aspirin) 81 Mg Chew 81 Mg PO DAILY Active Ordered Medications Reviewed Family History Father had unknown cancer, mother had diabetes Social History Smoking recently [id number] history of smoking per previous notes History of drinking 1 beer daily Physical Exam Vital Signs Vital Signs Date Time Temp Pulse Resp B/P (MAP) Pulse Ox O2 Delivery O2 Flow Rate FiO2 12/14/17 12:00 98.7 97 16 124/60 (81) 100 12/14/17 12:00 97 12/14/17 12:00 40 12/14/17 11:00 100 0 118/58 (78) 100 12/14/17 10:08 99 16 119/58 (78) 100 12/14/17 10:04 100 40 12/14/17 10:00 98 12/14/17 10:00 40 12/14/17 09:46 97.0 98 14 148/68 (94) 100 12/14/17 09:00 97.2 99 16 131/66 (87) 100 Ventilator 40 12/14/17 08:00 97.2 101 16 145/68 (93) 100 Ventilator 40 12/14/17 07:40 99.7 105 16 162/78 (106) 100 Ventilator 40 12/14/17 07:30 99.6 104 16 171/80 (110) 100 Ventilator 40 12/14/17 07:04 40 12/14/17 07:03 104 175/80 12/14/17 07:00 96.4 106 16 172/81 (111) 100 Ventilator 40 12/14/17 07:00 99.4 12/14/17 07:00 108 16 100 Ventilator 40 12/14/17 06:30 95.9 99 16 208/95 (132) 98 Ventilator 40 12/14/17 06:25 99 100 12/14/17 06:15 99 100 12/14/17 05:50 98 40 12/14/17 05:32 60 12/14/17 04:56 Ventilator 12/14/17 04:51 79 16 194/101 (132) 100 12/14/17 04:45 100 60 Physical Exam GENERAL: 72 year female, thin built, critically ill intubated sedated with propofol SKIN: Warm and dry. Open sore 2 x 2 cm right medial aspect of ankle with dressing applied. Right medial thigh has wound with dressing applied HEAD: Atraumatic. Normocephalic. EYES: Pupils equal and round around 3 mm bilaterally and reactive. ENT: Orotracheally intubated NECK: Trachea midline. No JVD. CARDIOVASCULAR: Regular rate and rhythm. S1, S2. No S4. No murmur RESPIRATORY: Few crackles scattered all lung june anterior. Mild expiratory wheeze. Breath sounds equal bilaterally. GASTROINTESTINAL: Abdomen soft, non-tender, nondistended. Active bowel sounds are appreciated MUSCULOSKELETAL: Extremities without peripheral edema. No obvious deformities. NEUROLOGICAL: Intubated sedated on sedation hold. Moving all Extremities withdraws to pain Laboratory Laboratory Tests Test 12/14/17 05:20 12/14/17 05:21 12/14/17 05:41 12/14/17 07:00 White Blood Count 11.7 Red Blood Count 2.65 Hemoglobin 8.5 Hematocrit 24.5 Mean Corpuscular Volume 92.5 Mean Corpuscular Hemoglobin 32.1 Mean Corpuscular Hemoglobin Concent 34.7 Red Cell Distribution Width 14.0 Platelet Count 329 Mean Platelet Volume 6.7 Neutrophils (%) (Auto) 72.3 Lymphocytes (%) (Auto) 18.2 Monocytes (%) (Auto) 6.2 Eosinophils (%) (Auto) 2.4 Basophils (%) (Auto) 0.9 Neutrophils # (Auto) 8.4 Lymphocytes # (Auto) 2.1 Monocytes # (Auto) 0.7 Eosinophils # (Auto) 0.3 Basophils # (Auto) 0.1 CBC Comment DIFF FINAL Differential Comment Prothrombin Time 10.7 Prothromb Time International Ratio 1.1 Activated Partial Thromboplast Time 29.6 Blood Urea Nitrogen 48 Creatinine 1.95 Random Glucose 116 Calcium Level 7.8 Magnesium Level 2.4 Sodium Level 138 Potassium Level 3.9 Chloride Level 108 Carbon Dioxide Level 20.5 Anion Gap 10 Estimat Glomerular Filtration Rate 25 Troponin I LESS THAN 0.02 B-Type Natriuretic Peptide 1937 Blood Gas Puncture Site RT RADIAL Blood Gas Patient Temperature 98.6 Blood Gas HCO3 18 Blood Gas Base Excess -8.4 Blood Gas Oxygen Saturation 98 Arterial Blood pH 7.23 Arterial Blood Partial Pressure CO2 45 Arterial Blood Partial Pressure O2 258 Arterial Blood Oxygen Content 12.5 Arterial Blood Carboxyhemoglobin 1.1 Arterial Blood Methemoglobin 0.5 Blood Gas Hemoglobin 8.6 Oxygen Delivery Device VENTILATOR Blood Gas Ventilator Setting PRVC / AC Blood Gas Inspired Oxygen 60 Lactic Acid Level 0.8 Urine Color LIGHT-YELLOW Urine Turbidity CLEAR Urine pH 6.5 Urine Specific [place] 1.007 Urine Protein 100 Urine Glucose (UA) NEG Urine Ketones NEG Urine Occult Blood TRACE Urine Nitrite NEG Urine Bilirubin NEG Urine Urobilinogen LESS THAN 2.0 Urine Leukocyte Esterase NEG Urine RBC 1 Urine WBC LESS THAN 1 Urine Mucus FEW Test 12/14/17 10:00 12/14/17 10:49 Troponin I 0.03 Date/Time Source Procedure Growth Status 12/14/17 05:46 Blood Peripheral Aerobic Blood Culture Pending Received 12/14/17 05:46 Blood Peripheral Anaerobic Blood Culture Pending Received 12/14/17 09:00 Sputum Endotracheal Gram Stain Pending Received 12/14/17 09:00 Sputum Endotracheal Sputum Culture Pending Received Result Diagram: 12/14/17 0520 12/14/17 0520 Imaging Chest x-ray shows bilateral interstitial infiltrates Septic Shock Reassessment Septic shock perfusion: reassessment completed Caprini VTE Risk Assessment Caprini VTE Risk Assessment: Mod/High Risk (score >= 2) Caprini Risk Assessment Model Point Value = 1 Point Value = 2 Point Value = 3 Point Value = 5 Age 41-60 Minor surgery BMI > 25 kg/m2 Swollen legs Varicose veins or History of unexplained or recurrent spontaneous Oral contraceptives or hormone replacement Sepsis (< 1 month) Serious lung disease, including pneumonia (< 1 month) Abnormal pulmonary function Acute myocardial infarction Congestive heart failure (< 1 month) History of inflammatory bowel disease Medical patient at bed rest Age 61-74 Arthroscopic surgery Major open surgery (> 45 min) Laparoscopic surgery (> 45 min) Malignancy Confined to bed (> 72 hours) Immobilizing plaster cast Central venous access Age >= 75 History of VTE Family history of VTE Factor V Leiden Prothrombin [id number] Lupus anticoagulant Anticardiolipin antibodies Elevated serum homocysteine Heparin-induced thrombocytopenia Other congenital or acquired thrombophilia Stroke (< 1 month) Elective arthroplasty Hip, pelvis, or leg fracture Acute spinal cord injury (< 1 month) Prophylaxis Regimen Total Risk Factor Score Risk Level Prophylaxis Regimen 0-1 Low Early ambulation 2 Moderate Order ONE of the following: *Sequential Compression Device (SCD) *Heparin 5000 units SQ BID 3-4 Higher Order ONE of the following medications: *Heparin 5000 units SQ TID *Enoxaparin/Lovenox 40 mg SQ daily (WT < 150 kg, CrCl > 30 mL/min) *Enoxaparin/Lovenox 30 mg SQ daily (WT < 150 kg, CrCl > 10-29 mL/min) *Enoxaparin/Lovenox 30 mg SQ BID (WT < 150 kg, CrCl > 30 mL/min) AND/OR *Sequential Compression Device (SCD) 5 or more Highest Order ONE of the following medications: *Heparin 5000 units SQ TID (Preferred with Epidurals) *Enoxaparin/Lovenox 40 mg SQ daily (WT < 150 kg, CrCl > 30 mL/min) *Enoxaparin/Lovenox 30 mg SQ daily (WT < 150 kg, CrCl > 10-29 mL/min) *Enoxaparin/Lovenox 30 mg SQ BID (WT < 150 kg, CrCl > 30 mL/min) AND *Sequential Compression Device (SCD) Assessment and Plan Assessment and Plan A/P Assessment and Plan Neuro/Psych: History depression Continue sedation with propofol for vent synchrony CT brain -no acute intracranial findings Hold home meds Sertraline 50 mg daily and mirtazapine 30 mg at night for depression CV: Probable CHF Coronary artery disease status post stent RCA 05/13 Dr. Moody Pulmonary edema ? Noncardiac Hypothermia Peripheral arterial disease status post lower extremity stenting Hypertension Dyslipidemia Pulmonary hypertension likely type III Echocardiogram 09/12 revealed EF around 55%. No regional wall motion abnormality. Normal systolic and diastolic function Continue metoprolol and Norvasc, hold lisinopril Received Lasix 40 mg iv X1. Hold further diuresis. Continue IV hydration with 75 ml/hour normal saline Continue home medications Plavix and Eliquis Resp: Acute hypoxic respiratory failure Acute COPD exacerbation Probable pneumonia 50 year tobacco history ACV, vent bundle Albuterol/ipratropium aerosols every 4 hours with albuterol aerosols every 2 hours. IV Solu-Medrol 60 mg every 8 hours Broad-spectrum antibiotics with IV Zosyn and azithromycin GI: History of Cholelithiasis, Pancreatitis Nothing by mouth, continue IV famotidine : Thompson catheter has been placed for accurate I's and O's in a critically ill patient receiving diuretics Rheum/Endo: History of RA Lupus? Hydroxychloroquine 200 mg daily for her underlying rheumatologic disorder SSI Renal: Acute on chronic kidney injury History of nephrolithiasis NS 75 ml per hour for 24 hours Monitor urine output Accurate I's and O's Avoid nephrotoxic drugs Heme: Normocytic anemia Chronic anticoagulation with Eliquis History of DVTs bilateral lower extremities Continue clopidogrel/Eliquis ID: Severe Sepsis Pneumonia F/u on reddy culture Continue Zosyn and azithromycin MSK: Lower extremity ankle and thigh wound ulcers/chronic FEN: Replace electrolytes as clinically indicated. Access - Utilize peripheral IV. Central line if indicated Prophylaxis - GI - famotidine - DVT - Eliquis CCT 55 MIN Code Status Full Problem Qualifiers (1) Pneumonia: (2) CHF exacerbation: Qualified Codes: I50.9 - Heart failure, unspecified (3) COPD (chronic obstructive pulmonary disease): (4) Anemia: (5) CAD (coronary artery disease): Pratik Rucker MD Dec 14, 2017 12:18
[2017-12-14] MEDS: methylPREDNISolone SOD SUCC 125 MG/2 ML VIAL IV PUSH SCH ×2 (13:07→21:22)
[2017-12-14] MEDS ORDERED: APIXABAN 5 MG TABLET PO SCH (13:30)
[2017-12-14] MEDS ORDERED: LABETALOL HCL 100 MG/20 ML VIAL IV PUSH ONE (14:30)
[2017-12-14] MEDS: amLODIPine BESYLATE 5 MG TAB PO SCH (14:59)
[2017-12-14] MEDS: SODIUM CHLOR 0.9% 1000 ML INJ 1,000 ML IV SCH (14:59)
[2017-12-14] MEDS: METOPROLOL TARTRATE 50 MG TAB PO SCH ×2 (14:59→21:22)
[2017-12-14] MEDS: LABETALOL HCL 100 MG/20 ML VIAL IV PUSH PRN (17:06)
--- NOTE | 2017-12-14 22:00 | EKG ---
Date Performed: 12/14/2017 Time Performed: 04:59:03 PTAGE: 72 years EKG: Sinus rhythm WITH OCCASIONAL VENTRICULAR PREMATURE COMPLEXES MARKED LEFT AXIS DEVIATION INTRAVENTRICULAR CONDUCTI ON DELAY SEPTAL MYOCARDIAL INFARCTION ABNORMAL ECG NO PREVIOUS TRACING DOCTOR: Zach Levy Interpretating Date/Time 12/14/2017 21:59:44
[2017-12-15] VITALS (23 sets, daily range): BP systolic 108–201; BP diastolic 55–85; PULSE 62–89; RESP 15–23; TEMP 97.7–98.6; O2SAT 99–100
[2017-12-15] MEDS: SODIUM CHLORIDE 0.9% FLUSH 10 ML FLUSH IV FLUSH PRN ×2 (00:11→07:56)
[2017-12-15] MEDS: PIPERACIL-TAZO 3.375 GM PREMIX 50 ML IV SCH ×3 (00:11→17:46)
[2017-12-15] MEDS: LABETALOL HCL 100 MG/20 ML VIAL IV PUSH PRN ×3 (00:12→08:08)
[2017-12-15 00:33] LABS: HEMATOCRIT 23.2 % (35.0-46.0); HEMOGLOBIN 8.1 GM/DL (11.6-15.3); MEAN CELL VOLUME 91.8 FL (80.0-100.0); MEAN CORPUSCULAR HEMOGLOBIN 32.1 PG (27.0-34.0); MEAN CORPUSCULAR HGB CONC 34.9 % (32.0-36.0); MEAN PLATELET VOLUME 7.1 FL (7.0-11.0); PLATELET COUNT 261 TH/MM3 (150-450); RED BLOOD COUNT 2.52 MIL/MM3 (4.00-5.30); RED CELL DISTRIBUTION WIDTH 14.3 % (11.6-17.2); WHITE BLOOD COUNT 7.5 TH/MM3 (4.0-11.0)
[2017-12-15 00:44] LABS: PROTHROMBIN TIME - PATIENT 10.5 SEC (9.8-11.6)
[2017-12-15] MEDS: SODIUM CHLOR 0.9% 1000 ML INJ 1,000 ML IV SCH ×2 (03:58→17:46)
[2017-12-15] MEDS: CHLORHEXIDINE GLUCONATE 2 % 1 PACK (2 CLOTHS) TOP SCH (04:00)
[2017-12-15] MEDS: RESP: ALBUTEROL 2.5 MG/IPRATROPIUM 0.5 MG NEB (SCH) NEB ×6 (04:00→23:03)
--- NOTE | 2017-12-15 05:05 | RADRPT ---
EXAM DATE/TIME: 12/15/2017 03:37 [facility] COMPARISON: CHEST SINGLE AP, December 14, 2017, 5:03. INDICATIONS : Evalaute for respiratory failure. MEDICAL HISTORY : Hypertension. Lupus. Smoker. SURGICAL HISTORY : Coronary artery stent. ENCOUNTER: Subsequent ACUITY: 3 days PAIN SCORE: Non-responsive. LOCATION: chest FINDINGS: Stable ETT and NGT. Lungs are hyperexpanded with improving bilateral perihilar patchy airspace diseas e. Cardiomediastinal contours are stable. Remainder of the exam is unchanged. CONCLUSION: 1. Stable ETT and NGT. 2. Improved perihilar patchy airspace disease consistent with improved positive fluid balance. Noah Douglass MD on December 15, 2017 at 5:03 Board Certified Radiologist. This report was verified electronically.
[2017-12-15] MEDS: methylPREDNISolone SOD SUCC 125 MG/2 ML VIAL IV PUSH SCH ×3 (05:37→21:13)
[2017-12-15] MEDS: PROPOFOL 1000 MG/100 ML INJ 100 ML IV PRN (06:45)
[2017-12-15] MEDS: AZITHROMYCIN INJ 500 MG in SODIUM CHLOR 0.9% 250 ML INJ 250 ML IV SCH (07:55)
[2017-12-15] MEDS: CHLORHEXIDINE 0.12% (ORAL KIT) 15 ML CUP MT SCH ×2 (07:55→20:00)
[2017-12-15] MEDS: HYDROXYCHLOROQUINE SULFATE 200 MG TAB PO SCH (07:56)
[2017-12-15] MEDS: CLOPIDOGREL 75 MG TAB PO SCH (07:56)
[2017-12-15] MEDS: METOPROLOL TARTRATE 50 MG TAB PO SCH ×2 (07:56→21:00)
[2017-12-15] MEDS: SODIUM CHLORIDE 0.9% FLUSH 10 ML FLUSH IV FLUSH SCH ×2 (07:56→21:00)
[2017-12-15] MEDS: FERROUS SULFATE 325 MG (65 MG ELEMENTAL IRON) TAB PO SCH (07:56)
[2017-12-15] MEDS: amLODIPine BESYLATE 5 MG TAB PO SCH (07:56)
[2017-12-15] MEDS: FAMOTIDINE 20 MG/2 ML VIAL IV PUSH SCH ×2 (07:56→21:14)
[2017-12-15 08:06] LABS: ALBUMIN 2.7 GM/DL (3.4-5.0); ALT (GPT) 19 U/L (10-53); AST (GOT) 19 U/L (15-37); BICARBONATE 16.8 MEQ/L (21.0-32.0); BLOOD UREA NITROGEN 52 MG/DL (7-18); CALCIUM 7.8 MG/DL (8.5-10.1); CHLORIDE 111 MEQ/L (98-107); CREATININE 1.84 MG/DL (0.50-1.00); GLOMERULAR FILTRATION RATE 27 ML/MIN (>89); GLUCOSE,RANDOM 116 MG/DL (74-106); SODIUM (NA) 141 MEQ/L (136-145)
[2017-12-15 08:08] LABS: ALKALINE PHOSPHATASE 101 U/L (45-117); TOTAL BILIRUBIN ADULT 0.2 MG/DL (0.2-1.0); TOTAL PROTEIN 6.3 GM/DL (6.4-8.2)
[2017-12-15] MEDS: HEPARIN 25,000 UNITS-D5W 250 ML - PREMIX IV PRN (09:48)
[2017-12-15] MEDS ORDERED: hydrALAZINE HCL 20 MG/ML VIAL ONE (11:35)
[2017-12-15] MEDS ORDERED: hydrALAZINE HCL 20 MG/ML VIAL IV PUSH ONE (11:37)
--- NOTE | 2017-12-15 16:05 | HHI.CCPN ---
Subjective Remarks/Hospital Course Patient is a 72-year-old female with past medical history of CAD s/p stent 05/13 , diastolic heart failure, COPD, lower ext DVTs on anticoagulation with Eliquis , PAD, lupus, depression, and hypertension was brought in by [facility]. Patient had Oxygen saturation was 70s on room air as per [facility]. Despite breathing treatments patient continued to deteriorate with respiratory rate in 50s and hypoxemic and patient was intubated by [facility] after Ativan 4mg IV and 20mg of etomidate. In the ER patient was evaluated by Dr. Maguire. Received Solu-Medrol and breathing treatments, also IV Lasix 40 mg 1. Chest x-ray showed Hyperinflated lungs with diffuse increased interstitial markings related to edema. Pt was also hypothermic at 93, WBC 11.7. BUN/creatinine elevated at 48/ 1.95 baseline 1.3 to 1.6. Pt given Lasix 40mg IV and Thompson inserted. Also sedated on propofol drip and given nitroglycerin topical. ABG - pH of 7.23. pO2 - 258. pCO2 45. HCO3 low at 18 on 60% I evaluated the patient in the ICU. Patient's respiratory failure seems to be secondary to combination of pneumonia COPD exacerbation and underlying CHF. However with probable pneumonia and sepsis (leukocytosis, hypothermia, bilateral interstitial infiltrates) I will hold on further diuresis. Continue gentle hydration with normal saline at 75 ML per hour. IV Solu-Medrol and breathing treatments. Zosyn and azithromycin for pneumonia 12/15/17: Remains intubated sedated. Follows commands on sedation hold. Chest x -ray shows slight interval improvement in the infiltrates. Creatinine stable to slightly down. UO 2.3 L in 24 hours Objective Vital Signs Date Time Temp Pulse Resp B/P (MAP) Pulse Ox O2 Delivery O2 Flow Rate FiO2 12/15/17 15:30 35 12/15/17 14:00 72 12/15/17 12:00 97.7 15 116/55 (75) 100 12/14/17 09:00 Ventilator Intake and Output 12/15/17 12/15/17 12/16/17 08:00 16:00 00:00 Intake Total 614 ml 300 ml Output Total 900 ml Balance -286 ml 300 ml Result Diagram: 12/15/17 0023 12/15/17 0611 Imaging Chest x-ray shows bilateral interstitial infiltrates Objective Remarks GENERAL: 72 year female, thin built, critically ill intubated sedated with propofol SKIN: Warm and dry. Open sore 2 x 2 cm right medial aspect of ankle with dressing applied. Right medial thigh has wound with dressing applied HEAD: Atraumatic. Normocephalic. EYES: Pupils equal and round around 3 mm bilaterally and reactive. ENT: Orotracheally intubated NECK: Trachea midline. No JVD. CARDIOVASCULAR: Regular rate and rhythm. S1, S2. No S4. No murmur RESPIRATORY: Few crackles scattered all lung june anterior. Mild expiratory wheeze. GASTROINTESTINAL: Abdomen soft, non-tender, nondistended. Active bowel sounds are appreciated MUSCULOSKELETAL: Open sore 2 x 2 cm right medial aspect of ankle with dressing applied. Right medial thigh has wound with dressing applied NEUROLOGICAL: Intubated sedated on sedation hold, measuring 4 extremities following commands Urinary Catheter: Yes Assessment to: Continue A/P Assessment and Plan A/P Assessment and Plan Neuro/Psych: History depression Continue sedation with propofol for vent synchrony Daily sedation vacation CT brain -no acute intracranial findings Hold home meds Sertraline 50 mg daily and mirtazapine 30 mg at night for depression CV: Pulmonary edema ? Noncardiac Coronary artery disease status post stent RCA 05/13 Dr. Moody Hypothermia Peripheral arterial disease status post lower extremity stenting Hypertension Dyslipidemia Pulmonary hypertension likely type III Continue IV hydration with 75 ml/hour normal saline Continue home medications Plavix and Eliquis Prev Echocardiogram 09/12 revealed EF around 55%. No regional wall motion abnormality. Normal systolic and diastolic function Continue metoprolol and Norvasc, hold lisinopril Resp: Acute hypoxic respiratory failure Acute COPD exacerbation Probable pneumonia 50 year tobacco history ACV, vent bundle, start SBT Albuterol/ipratropium aerosols every 4 hours with albuterol aerosols every 2 hours. IV Solu-Medrol 60 mg every 8 hours Broad-spectrum antibiotics with IV Zosyn and azithromycin GI: History of Cholelithiasis, Pancreatitis Nothing by mouth, continue IV famotidine Start tube feeds in 24 hours if not extubated : Thompson catheter has been placed for accurate I's and O's in a critically ill patient receiving diuretics Rheum/Endo: History of RA Lupus? Hydroxychloroquine 200 mg daily for her underlying rheumatologic disorder SSI Renal: Acute on chronic kidney injury History of nephrolithiasis NS 75 ml per hour for 24 hours Monitor urine output Accurate I's and O's Avoid nephrotoxic drugs Heme: Normocytic anemia Chronic anticoagulation with Eliquis History of DVTs bilateral lower extremities Continue clopidogrel/Eliquis ID: Severe Sepsis Pneumonia F/u on reddy culture Continue Zosyn and azithromycin MSK: Lower extremity ankle and thigh wound ulcers/chronic FEN: Replace electrolytes as clinically indicated. Access - Utilize peripheral IV. Central line if indicated Prophylaxis - GI - famotidine - DVT - Eliquis CCT 35 MIN Remains critically ill but stabilizing. Continue ICU care Pratik Rucker MD Dec 15, 2017 16:05
[2017-12-15] MEDS ORDERED: SODIUM BICARBONATE 8.4% INJ 50 MEQ/50 ML SYR ONE (17:40)
[2017-12-15] MEDS ORDERED: SODIUM BICARBONATE 8.4% INJ 50 MEQ/50 ML SYR IV PUSH ONE (18:00)
[2017-12-15] MEDS ORDERED: ACETAMINOPHEN 325 MG TAB PO PRN (23:45)
[2017-12-16] VITALS (12 sets, daily range): BP systolic 152–180; BP diastolic 67–78; PULSE 72–95; RESP 15–32; TEMP 98–98.7; O2SAT 94–100
[2017-12-16] MEDS: PIPERACIL-TAZO 3.375 GM PREMIX 50 ML IV SCH ×4 (01:00→23:14)
[2017-12-16] MEDS: RESP: ALBUTEROL 2.5 MG/IPRATROPIUM 0.5 MG NEB (SCH) NEB ×6 (03:38→23:07)
[2017-12-16] MEDS: CHLORHEXIDINE GLUCONATE 2 % 1 PACK (2 CLOTHS) TOP SCH ×2 (04:00→23:24)
[2017-12-16] MEDS: HEPARIN 25,000 UNITS-D5W 250 ML - PREMIX IV PRN (04:49)
[2017-12-16] MEDS: methylPREDNISolone SOD SUCC 125 MG/2 ML VIAL IV PUSH SCH ×2 (04:49→13:50)
[2017-12-16 04:51] LABS: ALBUMIN 2.5 GM/DL (3.4-5.0); BICARBONATE 17.8 MEQ/L (21.0-32.0); CALCIUM 7.3 MG/DL (8.5-10.1); CREATININE 1.83 MG/DL (0.50-1.00)
[2017-12-16 05:03] LABS: CALCIUM-PROTEIN CORRECTED 7.9 MG/DL (8.5-10.1); TOTAL BILIRUBIN ADULT 0.2 MG/DL (0.2-1.0)
[2017-12-16] MEDS: SODIUM CHLOR 0.9% 1000 ML INJ 1,000 ML IV SCH ×2 (06:12→19:40)
[2017-12-16] MEDS: CHLORHEXIDINE 0.12% (ORAL KIT) 15 ML CUP MT SCH ×2 (08:00→19:40)
[2017-12-16] MEDS: AZITHROMYCIN INJ 500 MG in SODIUM CHLOR 0.9% 250 ML INJ 250 ML IV SCH (08:15)
[2017-12-16] MEDS: SODIUM CHLORIDE 0.9% FLUSH 10 ML FLUSH IV FLUSH SCH ×2 (08:15→20:00)
[2017-12-16] MEDS: METOPROLOL TARTRATE 50 MG TAB PO SCH ×3 (08:15→22:51)
[2017-12-16] MEDS: HYDROXYCHLOROQUINE SULFATE 200 MG TAB PO SCH (08:15)
[2017-12-16] MEDS: CLOPIDOGREL 75 MG TAB PO SCH (08:15)
[2017-12-16] MEDS: FAMOTIDINE 20 MG/2 ML VIAL IV PUSH SCH ×2 (08:16→19:59)
[2017-12-16] MEDS: FERROUS SULFATE 325 MG (65 MG ELEMENTAL IRON) TAB PO SCH (08:16)
[2017-12-16] MEDS: amLODIPine BESYLATE 5 MG TAB PO SCH (08:16)
[2017-12-16] MEDS ORDERED: POTASSIUM CHLORIDE 20 MEQ CONTROLLED RELEASE TAB PO ONE (10:00)
--- NOTE | 2017-12-16 15:00 | HHI.CCPN ---
Subjective Remarks/Hospital Course Patient is a 72-year-old female with past medical history of CAD s/p stent 05/13 , diastolic heart failure, COPD, lower ext DVTs on anticoagulation with Eliquis , PAD, lupus, depression, and hypertension was brought in by [facility]. Patient had Oxygen saturation was 70s on room air as per [facility]. Despite breathing treatments patient continued to deteriorate with respiratory rate in 50s and hypoxemic and patient was intubated by [facility] after Ativan 4mg IV and 20mg of etomidate. In the ER patient was evaluated by Dr. Maguire. Received Solu-Medrol and breathing treatments, also IV Lasix 40 mg 1. Chest x-ray showed Hyperinflated lungs with diffuse increased interstitial markings related to edema. Pt was also hypothermic at 93, WBC 11.7. BUN/creatinine elevated at 48/ 1.95 baseline 1.3 to 1.6. Pt given Lasix 40mg IV and Thompson inserted. Also sedated on propofol drip and given nitroglycerin topical. ABG - pH of 7.23. pO2 - 258. pCO2 45. HCO3 low at 18 on 60% I evaluated the patient in the ICU. Patient's respiratory failure seems to be secondary to combination of pneumonia COPD exacerbation and underlying CHF. However with probable pneumonia and sepsis (leukocytosis, hypothermia, bilateral interstitial infiltrates) I will hold on further diuresis. Continue gentle hydration with normal saline at 75 ML per hour. IV Solu-Medrol and breathing treatments. Zosyn and azithromycin for pneumonia 12/15/17: Remains intubated sedated. Follows commands on sedation hold. Chest x -ray shows slight interval improvement in the infiltrates. Creatinine stable to slightly down. UO 2.3 L in 24 hours 12/16/17: Extubated yesterday tolerating well. No new chest x-ray. Creatinine remains stable. Urine output adequate. Good oxygen saturation on nasal cannula Objective Vital Signs Date Time Temp Pulse Resp B/P (MAP) Pulse Ox O2 Delivery O2 Flow Rate FiO2 12/16/17 12:00 72 12/16/17 08:00 98.7 27 180/78 (112) 94 12/16/17 07:51 Nasal Cannula 2.00 12/15/17 16:15 35 Intake and Output 12/16/17 12/16/17 12/17/17 08:00 16:00 00:00 Intake Total 300 ml 300 ml Output Total 700 ml Balance -400 ml 300 ml Result Diagram: 12/15/17 0023 12/16/17 0309 Other Results Microbiology Date/Time Source Procedure Growth Status 12/14/17 09:00 Sputum Endotracheal Gram Stain - Final Complete 12/14/17 09:00 Sputum Endotracheal Sputum Culture - Final HEAVY GROWTH NORMAL RESPIRATORY KIMBERLY Complete Laboratory Tests Test 12/15/17 17:27 Blood Gas Puncture Site RT RADIAL Blood Gas Patient Temperature 98.6 Blood Gas HCO3 15 mmol/L (22-26) Blood Gas Base Excess -10.4 mmol/L (-2-2) Blood Gas Oxygen Saturation 97 % (90-100) Arterial Blood pH 7.30 (7.380-7.420) Arterial Blood Partial Pressure CO2 31 mmHg (38-42) Arterial Blood Partial Pressure O2 186 mmHg (61-120) Arterial Blood Oxygen Content 14.6 Vol % (12.0-20.0) Arterial Blood Carboxyhemoglobin 0.9 % (0-4) Arterial Blood Methemoglobin 1.3 % (0-2) Blood Gas Hemoglobin 10.4 G/DL (12.0-16.0) Oxygen Delivery Device VENTILATOR Blood Gas Ventilator Setting CPAP 5/PS 5 Blood Gas Inspired Oxygen 35 % Imaging Chest x-ray shows bilateral interstitial infiltrates Objective Remarks GENERAL: 72 year female, thin built, lying in bed on NC SKIN: Warm and dry. Open sore 2 x 2 cm right medial aspect of ankle with dressing applied. Right medial thigh has wound with dressing applied HEAD: Atraumatic. Normocephalic. EYES: Pupils equal and round around 3 mm bilaterally and reactive. ENT: Airway widely patent NECK: Trachea midline. No JVD. CARDIOVASCULAR: Regular rate and rhythm. S1, S2. No S4. No murmur RESPIRATORY: Few crackles scattered all lung june anterior. Mild expiratory wheeze. GASTROINTESTINAL: Abdomen soft, non-tender, nondistended. MUSCULOSKELETAL: Open sore 2 x 2 cm right medial aspect of ankle with dressing applied. Right medial thigh has wound with dressing applied NEUROLOGICAL: Alert awake oriented 3 no focal deficits A/P Assessment and Plan A/P Assessment and Plan Neuro/Psych: History depression CT brain -no acute intracranial findings Resume Sertraline and mirtazapine CV: Pulmonary edema ? Noncardiac Coronary artery disease status post stent RCA 05/13 Dr. Fransisco Hypothermia Peripheral arterial disease status post lower extremity stenting Hypertension Dyslipidemia Pulmonary hypertension likely type III IV to KVO Continue home medications Plavix and Eliquis Prev Echocardiogram 09/12 revealed EF around 55%. No regional wall motion abnormality. Normal systolic and diastolic function Increase metoprolol to 50 q8h and increase Norvasc to 10 mg daily, hold lisinopril Resp: Acute hypoxic respiratory failure-resolved Acute COPD exacerbation Probable pneumonia 50 year tobacco history Agitated oxygen by nasal cannula to keep oxygen saturation more than 90% Albuterol/ipratropium aerosols every 4 hours with albuterol aerosols every 2 hours. IV Solu-Medrol 60 mg every 8 hours-reduce to 40 every 12 Broad-spectrum antibiotics with IV Zosyn and azithromycin Symbicort every 12 GI: History of Cholelithiasis, Pancreatitis Heart healthy diet. Famotidine : Thompson catheter has been placed for accurate I's and O's in a critically ill patient receiving diuretics Rheum/Endo: History of RA Lupus? Hydroxychloroquine 200 mg daily for her underlying rheumatologic disorder SSI Renal: Acute on chronic kidney injury History of nephrolithiasis IV TO KVO Monitor urine output Accurate I's and O's Avoid nephrotoxic drugs Heme: Normocytic anemia Chronic anticoagulation with Eliquis History of DVTs bilateral lower extremities Continue clopidogrel/hold Eliquis due to renal failure Continue IV Heparin ID: Severe Sepsis-improved Pneumonia F/u on redyd culture Continue Zosyn and azithromycin MSK: Lower extremity ankle and thigh wound ulcers/chronic FEN: Replace electrolytes as clinically indicated. Access - Utilize peripheral IV. Central line if indicated Prophylaxis - GI - famotidine - DVT - IV Heparin Level 2 Transfer to [facility], hospitalist to assume care in Pratik Rucker MD Dec 16, 2017 15:00
[2017-12-16] MEDS: methylPREDNISolone SOD SUCC 40 MG/1 ML VIAL IV PUSH SCH (19:58)
[2017-12-16] MEDS: MIRTAZAPINE 15 MG TAB PO SCH (19:59)
[2017-12-16] MEDS: BUDESONIDE-FORMOTEROL 160/4.5 MCG INHALER INH SCH (20:18)
[2017-12-16] MEDS: hydrALAZINE HCL 20 MG/ML VIAL IV PUSH PRN (23:14)
[2017-12-17] VITALS (15 sets, daily range): BP systolic 141–200; BP diastolic 71–105; PULSE 75–97; RESP 16–32; TEMP 97.4–98.4; O2SAT 92–100
[2017-12-17] MEDS: LABETALOL HCL 100 MG/20 ML VIAL IV PUSH PRN ×4 (00:13→23:28)
--- NOTE | 2017-12-17 03:14 | RADRPT ---
EXAM DATE/TIME: 12/17/2017 02:30 [facility] COMPARISON: CHEST SINGLE AP, December 15, 2017, 3:37. INDICATIONS : Shortness of breath, possible pulmonary disease. MEDICAL HISTORY : Hypertension. Lupus. SURGICAL HISTORY : Coronary artery stent. ENCOUNTER: Subsequent ACUITY: 4 - 6 days PAIN SCORE: Non-responsive. LOCATION: Bilateral chest FINDINGS: Patient has been extubated and NG tube removed. Lungs are hyperexpanded. Trace left pleural effusion and associated left lower lobe airspace disease. Continued mild perihilar patchy opacities. Cardiomed iastinal contours are stable. Remainder of the exam is unchanged. CONCLUSION: 1. Stable mild positive fluid balance. 2. Trace left pleural effusion and associated airspace disease in the left lung base. Noah Douglass MD on December 17, 2017 at 3:10 Board Certified Radiologist. This report was verified electronically.
[2017-12-17] MEDS: RESP: ALBUTEROL 2.5 MG/IPRATROPIUM 0.5 MG NEB (SCH) NEB ×6 (03:52→23:48)
[2017-12-17 06:21] LABS: ALBUMIN 2.6 GM/DL (3.4-5.0); AUTOMATED NEUTROPHIL # 10.4 TH/MM3 (1.8-7.7); BICARBONATE 18.8 MEQ/L (21.0-32.0); CALCIUM 7.3 MG/DL (8.5-10.1); CREATININE 1.65 MG/DL (0.50-1.00); HEMATOCRIT 23.1 % (35.0-46.0); HEMOGLOBIN 7.7 GM/DL (11.6-15.3); LYMPHOCYTE # 0.6 TH/MM3 (1.0-4.8); MEAN CORPUSCULAR HEMOGLOBIN 31.4 PG (27.0-34.0); MEAN CORPUSCULAR HGB CONC 33.3 % (32.0-36.0); MEAN PLATELET VOLUME 7.1 FL (7.0-11.0); MONO % 6.4 % (0.0-8.0); MONOCYTE # 0.8 TH/MM3 (0-0.9); NEUT % 88.6 % (16.0-70.0); PLATELET COUNT 296 TH/MM3 (150-450); RED BLOOD COUNT 2.46 MIL/MM3 (4.00-5.30); RED CELL DISTRIBUTION WIDTH 15.2 % (11.6-17.2); WHITE BLOOD COUNT 11.8 TH/MM3 (4.0-11.0)
[2017-12-17 06:26] LABS: CALCIUM-PROTEIN CORRECTED 7.9 MG/DL (8.5-10.1); TOTAL BILIRUBIN ADULT 0.2 MG/DL (0.2-1.0); TOTAL PROTEIN 5.9 GM/DL (6.4-8.2)
[2017-12-17] MEDS: SODIUM CHLOR 0.9% 1000 ML INJ 1,000 ML IV SCH (06:46)
[2017-12-17] MEDS: METOPROLOL TARTRATE 50 MG TAB PO SCH ×2 (07:09→16:08)
[2017-12-17] MEDS: CHLORHEXIDINE 0.12% (ORAL KIT) 15 ML CUP MT SCH ×2 (08:00→20:00)
[2017-12-17] MEDS: BUDESONIDE-FORMOTEROL 160/4.5 MCG INHALER INH SCH ×2 (08:05→20:38)
[2017-12-17] MEDS: FERROUS SULFATE 325 MG (65 MG ELEMENTAL IRON) TAB PO SCH (08:07)
[2017-12-17] MEDS: SODIUM CHLORIDE 0.9% FLUSH 10 ML FLUSH IV FLUSH SCH ×2 (08:07→20:38)
[2017-12-17] MEDS: FAMOTIDINE 20 MG/2 ML VIAL IV PUSH SCH ×2 (08:07→20:38)
[2017-12-17] MEDS: methylPREDNISolone SOD SUCC 40 MG/1 ML VIAL IV PUSH SCH ×2 (08:07→20:38)
[2017-12-17] MEDS: PIPERACIL-TAZO 3.375 GM PREMIX 50 ML IV SCH ×2 (08:07→16:08)
[2017-12-17] MEDS: HYDROXYCHLOROQUINE SULFATE 200 MG TAB PO SCH (08:07)
[2017-12-17] MEDS: SERTRALINE HCL 50 MG TAB PO SCH (08:08)
[2017-12-17] MEDS: CLOPIDOGREL 75 MG TAB PO SCH (08:08)
[2017-12-17] MEDS: AZITHROMYCIN INJ 500 MG in SODIUM CHLOR 0.9% 250 ML INJ 250 ML IV SCH (08:08)
[2017-12-17] MEDS ORDERED: ONDANSETRON HCL 4 MG/2 ML VIAL IV ONE (09:45)
[2017-12-17] MEDS: HEPARIN 25,000 UNITS-D5W 250 ML - PREMIX IV PRN (09:56)
[2017-12-17] MEDS ORDERED: SODIUM BICARBONATE 8.4% INJ 50 MEQ/50 ML SYR IV PUSH ONE (11:30)
--- NOTE | 2017-12-17 11:44 | RADRPT ---
EXAM DATE/TIME: 12/17/2017 10:51 [facility] COMPARISON: No previous studies available for comparison. INDICATIONS : Abdominal pain. MEDICAL HISTORY : Hypertension. Lupus. SURGICAL HISTORY : Coronary artery stent. ENCOUNTER: Subsequent ACUITY: 1 day PAIN SCORE: 8/10 LOCATION: Abdomen FINDINGS: The bowel gas is nonspecific. There are no signs of obstruction or free air for technique. No defini te calcified stones are identified for technique. IVC filter is in place and there are postsurgical c hanges in right hip and hypertrophic changes with degenerative changes involving both hips. [place] fractures of pubic rami on the right. CONCLUSION: Nonspecific abdomen. Son Rivera MD on December 17, 2017 at 11:41 Board Certified Radiologist. This report was verified electronically.
--- NOTE | 2017-12-17 11:45 | RADRPT ---
EXAM DATE/TIME: 12/17/2017 11:03 [facility] COMPARISON: CHEST SINGLE AP, December 17, 2017, 2:30. INDICATIONS : Shortness of breath. Respiratory disease. MEDICAL HISTORY : Hypertension. Lupus SURGICAL HISTORY : Coronary artery stent. ENCOUNTER: Subsequent ACUITY: 3 days PAIN SCORE: 0/10 LOCATION: Bilateral chest FINDINGS: There is slight worsening of pulmonary edema since the prior exam. Left basilar opacity is present ma y be due to a combination of consolidation and or pleural effusion. Tiny right pleural effusion may b e present. The rest of the examination has not significantly changed. CONCLUSION: Left basilar opacity is present may be due to a combination of consolidation and or pleural effusion. Worsening pulmonary edema. Son Rivera MD on December 17, 2017 at 11:42 Board Certified Radiologist. This report was verified electronically.
[2017-12-17] MEDS: SODIUM BICARBONATE 8.4% INJ 150 MEQ in WATER STERILE FOR INJ 850 ML IV SCH ×2 (12:00→20:40)
[2017-12-17] MEDS ORDERED: IOHEXOL 350 MG/ML 10 ML VIAL (for RAD DIAG) IVCONTRAST ONE (13:09)
[2017-12-17] MEDS: hydrALAZINE HCL 20 MG/ML VIAL IV PUSH PRN (13:37)
[2017-12-17] MEDS: metroNIDAZOLE 500 MG TAB PO SCH ×2 (13:37→20:39)
--- NOTE | 2017-12-17 14:03 | RADRPT ---
EXAM DATE/TIME: 12/17/2017 12:58 [facility] COMPARISON: CT ABDOMEN & PELVIS W/O CONTRAST, September 04, 2017, 12:56. INDICATIONS : Diffuse abdomen pain, evaluate for mesenteric ischemia. IV CONTRAST: 60 cc Omnipaque 350 (iohexol) IV ORAL CONTRAST: No oral contrast ingested. RADIATION DOSE: 4.51 CTDIvol (mGy) MEDICAL HISTORY : Lupus. Hypertension. SURGICAL HISTORY : parathyroid surgery ENCOUNTER: Initial ACUITY: 1 day PAIN SCALE: Non-responsive LOCATION: Bilateral abdomen TECHNIQUE: Volumetric scanning of the abdomen and pelvis was performed. Using automated exposure control and adjustment of the mA and/or kV according to patient size, radiation dose was kept as low as reasonably achievable to obtain optimal diagnostic quality images. DICOM format image data is av ailable electronically for review and comparison. FINDINGS: CT Abdomen: The liver, spleen, adrenals are unremarkable. The pancreatic duct is dilated at multiple levels measures 6-7 mm in maximum diameter with multiple calcifications in the pancreas the largest m easures 1.1 cm due to chronic pancreatitis without a clear mass. Again noted are multiple tiny stones in the kidneys and renal cysts. Slight degree of anasarca is seen. There is no evidence for any appr eciable pathological adenopathy, free fluid. The cecum appears distended measures 5.8 cm in size wit hout signs of pneumatosis. There is no evidence for small bowel obstruction and no significant bowel wall thickening of small bowel is identified. Moderate bilateral pleural effusions are present with b ibasilar consolidation and/or compressive collapse. IVC filter is in place. There are old healed rib fractures in the right lower chest. Chronic vascular calcifications are present involving the aorta, iliac arteries without any significant stenosis or aneurysmal dilatations for technique. There are ca lcified splenic artery with an area measures 1.2 cm possibly a calcified aneurysm. There is narrowing of the common iliac arteries worse on the left not adequately characterized, however the left side i s probably significant stenosis higher than 75%. The takeoff of the SMA and celiac arteries also demo nstrate significant atherosclerotic changes some degree of stenosis may be present difficult to evalu ate for technique and renal artery stenosis is also difficult to exclude. The gallbladder demonstrate s multiple stones without gallbladder wall thickening, or pericholecystic fluid. CT pelvis: There is no evidence for mass, abscess formation, or any significant adenopathy within the pelvis. There are postsurgical changes in the right hip and chronic changes involving the left hip w ith multiple areas of lucency not changed. CONCLUSION: 1. The cecum appears distended not present on the prior examination filled with fluid and stool of un certain etiology could be due to ileus without signs of ischemic bowel for technique, however early i schemic bowel could be unremarkable by CT. Significant atherosclerotic calcifications of aorta and mu ltiple visceral arteries with high-grade stenosis of the left common iliac artery and stenosis at the origin of the SMA and renal arteries are not excluded. 2. Bilateral pleural effusions and bibasilar consolidation or compressive collapse. 3. Dilated pancreatic duct and chronic calcifications related to chronic pancreatitis. Son Rivera MD on December 17, 2017 at 13:53 Board Certified Radiologist. This report was verified electronically.
[2017-12-17] MEDS ORDERED: FUROSEMIDE 20 MG/2 ML VIAL IV PUSH ONE (14:15)
--- NOTE | 2017-12-17 14:43 | HHI.CCPN ---
Subjective Remarks/Hospital Course Patient is a 72-year-old female with past medical history of CAD s/p stent 05/13 , diastolic heart failure, COPD, lower ext DVTs on anticoagulation with Eliquis , PAD, lupus, depression, and hypertension was brought in by [facility]. Patient had Oxygen saturation was 70s on room air as per [facility]. Despite breathing treatments patient continued to deteriorate with respiratory rate in 50s and hypoxemic and patient was intubated by [facility] after Ativan 4mg IV and 20mg of etomidate. In the ER patient was evaluated by Dr. Maguire. Received Solu-Medrol and breathing treatments, also IV Lasix 40 mg 1. Chest x-ray showed Hyperinflated lungs with diffuse increased interstitial markings related to edema. Pt was also hypothermic at 93, WBC 11.7. BUN/creatinine elevated at 48/ 1.95 baseline 1.3 to 1.6. Pt given Lasix 40mg IV and Thompson inserted. Also sedated on propofol drip and given nitroglycerin topical. ABG - pH of 7.23. pO2 - 258. pCO2 45. HCO3 low at 18 on 60% I evaluated the patient in the ICU. Patient's respiratory failure seems to be secondary to combination of pneumonia COPD exacerbation and underlying CHF. However with probable pneumonia and sepsis (leukocytosis, hypothermia, bilateral interstitial infiltrates) I will hold on further diuresis. Continue gentle hydration with normal saline at 75 ML per hour. IV Solu-Medrol and breathing treatments. Zosyn and azithromycin for pneumonia 12/15/17: Remains intubated sedated. Follows commands on sedation hold. Chest x -ray shows slight interval improvement in the infiltrates. Creatinine stable to slightly down. UO 2.3 L in 24 hours 12/16/17: Extubated yesterday tolerating well. No new chest x-ray. Creatinine remains stable. Urine output adequate. Good oxygen saturation on nasal cannula 12/17/17: Complaints of increasing shortness of breath and abdominal pain with nausea and vomiting. Patient was kept nothing by mouth. Chest x-ray shows bilateral effusions/atelectasis. Stat CT abdomen pelvis showed cecal dilation. ABG showing metabolic acidosis. Bicarbonate infusion started. Objective Vital Signs Date Time Temp Pulse Resp B/P (MAP) Pulse Ox O2 Delivery O2 Flow Rate FiO2 12/17/17 12:00 75 12/17/17 08:00 97.9 26 200/91 (127) 92 12/16/17 19:33 Nasal Cannula 2.00 12/15/17 16:15 35 Intake and Output 12/17/17 12/17/17 12/18/17 08:00 16:00 00:00 Intake Total 100 ml Balance 100 ml Result Diagram: 12/17/17 0535 12/17/17 0535 Other Results Laboratory Tests Test 12/17/17 11:07 Blood Gas Puncture Site RT RADIAL Blood Gas Patient Temperature 98.6 Blood Gas HCO3 17 mmol/L (22-26) Blood Gas Base Excess -9.1 mmol/L (-2-2) Blood Gas Oxygen Saturation 92 % (90-100) Arterial Blood pH 7.25 (7.380-7.420) Arterial Blood Partial Pressure CO2 40 mmHg (38-42) Arterial Blood Partial Pressure O2 79 mmHg (61-120) Arterial Blood Oxygen Content 10.6 Vol % (12.0-20.0) Arterial Blood Carboxyhemoglobin 1.2 % (0-4) Arterial Blood Methemoglobin 1.5 % (0-2) Blood Gas Hemoglobin 8.1 G/DL (12.0-16.0) Oxygen Delivery Device NASAL CANNULA Blood Gas Liter Flow 3 L/M Imaging Chest x-ray shows bilateral interstitial infiltrates Objective Remarks GENERAL: 72 year female, thin built, lying in bed in moderate distress due to shortness of breath and abdominal pain SKIN: Warm and dry. Open sore 2 x 2 cm right medial aspect of ankle with dressing applied. Right medial thigh has wound with dressing applied HEAD: Atraumatic. Normocephalic. EYES: Pupils equal and round around 3 mm bilaterally and reactive. ENT: Airway widely patent NECK: Trachea midline. No JVD. CARDIOVASCULAR: Regular rate and rhythm. S1, S2. No S4. No murmur RESPIRATORY: Bilateral crackles heard in all lung june. Mild expiratory wheeze. GASTROINTESTINAL: Abdomen distended, tender to palpation. Tympanic MUSCULOSKELETAL: Open sore 2 x 2 cm right medial aspect of ankle with dressing applied. Right medial thigh has wound with dressing applied NEUROLOGICAL: Alert awake oriented 3 no focal deficits A/P Assessment and Plan A/P Assessment and Plan Neuro/Psych: History depression CT brain -no acute intracranial findings Resumed Sertraline and mirtazapine CV: Pulmonary edema ? Noncardiac, now with fluid overload Coronary artery disease status post stent RCA 05/13 Dr. Moody Hypothermia Peripheral arterial disease status post lower extremity stenting Hypertension Dyslipidemia Pulmonary hypertension likely type III Change IV fluid to bicarbonate infusion IV Lasix 60 mg 1 stat and 20 twice a day Patient has evidence of fluid overload Continue home medications Plavix and Eliquis Prev Echocardiogram 09/12 revealed EF around 55%. No regional wall motion abnormality. Normal systolic and diastolic function Metoprolol to 50 q8h and Norvasc to 10 mg daily, hold lisinopril Resp: Acute hypoxic respiratory failure Acute COPD exacerbation Probable pneumonia 50 year tobacco history Worsening respiratory status with tachypnea bilateral crackles IV Lasix as above, start BiPAP Albuterol/ipratropium aerosols every 4 hours with albuterol aerosols every 2 hours. IV Solu-Medrol 40 every 12 Broad-spectrum antibiotics with IV Zosyn and azithromycin Symbicort every 12 GI: Cecal dilatation History of Cholelithiasis, Pancreatitis NPO except meds. Famotidine Consult GI : Thompson catheter to be continued in a critically ill patient receiving diuretics Rheum/Endo: History of RA Lupus? Hydroxychloroquine 200 mg daily for her underlying rheumatologic disorder SSI Renal: Acute on chronic kidney injury History of nephrolithiasis Bicarbonate infusion IV Lasix as above Monitor urine output Accurate I's and O's Avoid nephrotoxic drugs Heme: Normocytic anemia Chronic anticoagulation with Eliquis History of DVTs bilateral lower extremities Continue clopidogrel/hold Eliquis due to renal failure Continue IV Heparin ID: Severe Sepsis-improved Pneumonia Continue Zosyn and azithromycin Check C. difficile Start Flagyl by mouth MSK: Lower extremity ankle and thigh wound ulcers/chronic FEN: Replace electrolytes as clinically indicated. Access - Utilize peripheral IV. Central line if indicated Prophylaxis - GI - famotidine - DVT - IV Heparin CCT 35 Clinical acute deterioration in respiratory status and GI status, patient is currently critically ill and requiring BiPAP. Cecal dilatation may be due to colonic ileus. Due to acute change in status canceled transferred to floor Pratik Rucker MD Dec 17, 2017 14:43
[2017-12-17] MEDS: POTASSIUM CHLORIDE 25 MEQ EFFERVESCENT TAB NG SCH (14:45)
[2017-12-17] MEDS ORDERED: ONDANSETRON HCL 4 MG/2 ML VIAL IV PUSH PRN (15:00)
[2017-12-17] MEDS: MORPHINE SULFATE 2 MG/ML INJ IV PRN ×2 (16:32→21:53)
[2017-12-17] MEDS: FUROSEMIDE 20 MG/2 ML VIAL IV PUSH SCH (17:06)
--- NOTE | 2017-12-17 17:09 | PD.CONS ---
HPI History of Present Illness This is a 72 year old with past medical history of pancreatitis, CAD s/p stent , diastolic heart failure, COPD, lower ext DVTs on anticoagulation with Eliquis, PAD, lupus, depression, and hypertension was brought in by [facility] for respiratory distress. This was felt related to combination of pneumonia COPD exacerbation and underlying CHF. Patient was intubated then extubated, currently on bipap. Gi have been consulted for finding on CT. Ct on 12/17/17 showed cecum distended , filled with fluid and stools, possible ileus. Significant atherosclerotic calcifications of aorta and multiple visceral arteries with high grade stenosis of the left common iliac artery and stenosis at the origin of the SMA and renal arteries couldn't be excluded. Pleural effusions, dilated pancreatic duct and chronic calcifications related to chronic pancreatitis. Patient not able to provide much history. she is with complaints of abd pain, and loose stools. Denies hematemesis or hematochezia. No nausea or vomiting. Abd X-ray with no acute findings. Per nurse, patient had multiple loose stools over night. C-diff ordered but patient hasn't had any BM today (Christiano Hernandez) PFSH Past Medical History Coronary disease status post stent to the RCA 05/[address] Moody Chronic diastolic heart failure, Pulmonary hypertension likely type III, COPD History of lower extremity DVTs Peripheral arterial disease status post stent to the iliac Nephrolithiasis Lupus Depression Chronic warfarin Rheumatoid arthritis Hypertension Dyslipidemia. Pancreatitis Past Surgical History Right ankle surgery RCA stent History of transhepatic biliary stent and iliac stent. (Christiano Hernandez) Coded Allergies: cephalexin (Verified Allergy, Unknown, rash, 12/14/17) diatrizoate meglumine (Verified Allergy, Unknown, rash, 12/14/17) fluconazole (Verified Allergy, Unknown, rash, 12/14/17) gadobenic acid (Verified Allergy, Unknown, rash, 12/14/17) gadodiamide (Verified Allergy, Unknown, rash, 12/14/17) gadoteridol (Verified Allergy, Unknown, rash, 12/14/17) iodixanol (Verified Allergy, Unknown, rash, 12/14/17) iohexol (Verified Allergy, Unknown, rash, 12/14/17) pravastatin (Verified Allergy, Unknown, rash, 12/14/17) Medications Current Medications Medications (Trade) Dose Ordered Sig/Chris Route Start Time Stop Time Status Last Admin Piperacillin Sod/ Tazobactam Sod 50 ml @ 100 mls/hr Q8H IV 12/14/17 09:00 12/17/17 16:08 Azithromycin 500 mg/Sodium Chloride 250 ml @ 250 mls/hr Q24H IV 12/14/17 08:00 12/17/17 08:08 (NS Flush) 2 ml UNSCH PRN IV FLUSH 12/14/17 07:15 12/15/17 07:56 (NS Flush) 2 ml BID IV FLUSH 12/14/17 09:00 12/17/17 08:07 (Albuterol Neb) 2.5 mg Q4HR NEB PRN INH 12/14/17 07:15 (Peridex 0.12% Liq) 15 ml BID@08,20 MT 12/14/17 08:00 12/14/17 20:00 Miscellaneous Information 1 Q361D XX 12/14/17 07:15 (Chlorhexidine 2% Cloth) 3 pack Taper DAILY@04 TOP 12/15/17 04:00 12/11/18 03:59 12/16/17 23:24 (Chlorhexidine 2% Cloth) 3 pack UNSCH PRN TOP 12/14/17 07:15 (Trandate Inj) 20 mg Q4H PRN IV PUSH 12/14/17 13:15 12/17/17 10:46 (Plavix) 75 mg DAILY PO 12/15/17 09:00 12/17/17 08:08 (Plaquenil) 200 mg DAILY PO 12/15/17 09:00 12/17/17 08:07 (Ferrous Sulfate) 325 mg DAILY PO 12/15/17 09:00 12/17/17 08:07 Heparin Sodium/ Dextrose 250 ml @ 7 mls/hr TITRATE PRN IV 12/14/17 15:45 12/17/17 09:56 (Apresoline Inj) 20 mg Q4H PRN IV PUSH 12/15/17 16:00 12/17/17 13:37 (Tylenol) 650 mg Q6H PRN PO 12/15/17 23:45 12/15/17 23:57 (Pepcid Inj) 10 mg Q12HR IV PUSH 1/20/18 21:00 12/17/17 08:07 (Remeron) 30 mg HS PO 12/16/17 21:00 12/16/17 19:59 (Zoloft) 50 mg DAILY PO 12/17/17 09:00 12/17/17 08:08 (Norvasc) 10 mg DAILY PO 12/17/17 09:00 12/17/17 08:07 (SoluMEDROL INJ) 40 mg Q12HR IV PUSH 12/16/17 21:00 12/17/17 08:07 (Lopressor) 50 mg Q8H PO 12/16/17 16:00 12/17/17 16:08 (Symbicort 160-4.5 Mcg Inh) 2 puff Q12HR INH 12/16/17 21:00 12/17/17 08:05 (Duoneb Neb) 1 ampule Q4HR NEB NEB 12/17/17 12:00 12/17/17 15:28 Sodium Bicarbonate 150 meq/Sterile Water 1,000 ml @ 100 mls/hr Q10H IV 12/17/17 13:00 12/17/17 12:00 (Flagyl) 500 mg Q8HR PO 12/17/17 14:00 12/17/17 13:37 (Lasix Inj) 20 mg BID@09,18 IV PUSH 12/17/17 18:00 (K-Lyte Cl Eff) 25 meq DAILY NG 12/17/17 14:45 (Zofran Inj) 4 mg Q4H PRN IV PUSH 12/17/17 15:00 (Morphine Inj) 2 mg Q4H PRN IV 12/17/17 16:30 12/17/17 16:32 Family History Non contributory Social History Denies alcohol (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,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) Review of Systems Constitutional: COMPLAINS OF: Fatigue Endocrine: DENIES: Polyuria Ears, nose, mouth, throat: DENIES: Hoarseness Respiratory: COMPLAINS OF: Shortness of breath Cardiovascular: DENIES: Lower Extremity Edema Gastrointestinal: COMPLAINS OF: Abdominal pain, Diarrhea, DENIES: Black stools , Bloody stools, Constipation, Nausea, Vomiting, Difficulty Swallowing, Odynophagia, Swelling of Abdomen, Heartburn, Hematemesis Genitourinary: DENIES: Hematuria Musculoskeletal: DENIES: Back pain Integumentary: DENIES: Jaundice Neurologic: DENIES: Abnormal gait Psychiatric: DENIES: Anxiety (Christiano Hernandez) GI Exam Vitals I&O Vital Signs Date Time Temp Pulse Resp B/P (MAP) Pulse Ox O2 Delivery O2 Flow Rate FiO2 12/17/17 15:28 99 35 12/17/17 14:00 97 12/17/17 12:00 97.4 75 157/72 (100) 94 12/17/17 12:00 75 12/17/17 10:00 83 12/17/17 08:00 97.9 79 26 200/91 (127) 92 12/17/17 08:00 79 12/17/17 07:00 100 Nasal Cannula 3.00 12/17/17 06:00 75 12/17/17 04:00 77 12/17/17 04:00 98.1 77 19 182/84 (116) 98 12/17/17 02:00 92 12/17/17 00:00 98.1 94 32 141/105 (117) 98 12/17/17 00:00 94 12/16/17 22:00 88 12/16/17 20:00 98.3 77 26 154/69 (97) 99 12/16/17 20:00 77 12/16/17 19:33 98 Nasal Cannula 2.00 12/16/17 19:00 100 Nasal Cannula 3.00 12/16/17 18:00 72 I/O 12/16/17 12/16/17 12/16/17 12/17/17 12/17/17 12/17/17 07:00 15:00 23:00 07:00 15:00 23:00 Intake Total 300 ml 300 ml 1290 ml 100 ml Output Total 700 ml Balance -400 ml 300 ml 1290 ml 100 ml Intake Oral 0 ml 240 ml 100 ml IV Total 300 ml 300 ml 1050 ml Output Urine Total 700 ml # Voids 4 5 # Bowel Movements 0 4 4 Imaging Last Impressions Chest X-Ray 12/17/17 0600 Signed Impressions: Service Date/Time: Sunday, December 17, 2017 02:30 - CONCLUSION: 1. Stable mild positive fluid balance. 2. Trace left pleural effusion and associated airspace disease in the left lung base. Noah Douglass MD Abdomen/Pelvis CT 12/17/17 0000 Signed Impressions: Service Date/Time: Sunday, December 17, 2017 12:58 - CONCLUSION: 1. The cecum appears distended not present on the prior examination filled with fluid and stool of uncertain etiology could be due to ileus without signs of ischemic bowel for technique, however early ischemic bowel could be unremarkable by CT. Significant atherosclerotic calcifications of aorta and multiple visceral arteries with high-grade stenosis of the left common iliac artery and stenosis at the origin of the SMA and renal arteries are not excluded. 2. Bilateral pleural effusions and bibasilar consolidation or compressive collapse. 3. Dilated pancreatic duct and chronic calcifications related to chronic pancreatitis. Son Rivera MD Abdomen X-Ray 12/17/17 0000 Signed Impressions: Service Date/Time: Sunday, December 17, 2017 10:51 - CONCLUSION: Nonspecific abdomen. Son Rivera MD Head CT 12/14/17 0000 Signed Impressions: Service Date/Time: November 06:08 - CONCLUSION: 1. No acute abnormality seen. 2. Mild atrophy. Chaim Lin MD Laboratory Test 12/17/17 05:35 12/17/17 06:25 12/17/17 11:07 12/17/17 12:39 White Blood Count 11.8 TH/MM3 Red Blood Count 2.46 MIL/MM3 Hemoglobin 7.7 GM/DL Hematocrit 23.1 % Mean Corpuscular Volume 94.0 FL Mean Corpuscular Hemoglobin 31.4 PG Mean Corpuscular Hemoglobin Concent 33.3 % Red Cell Distribution Width 15.2 % Platelet Count 296 TH/MM3 Mean Platelet Volume 7.1 FL Neutrophils (%) (Auto) 88.6 % Lymphocytes (%) (Auto) 5.0 % Monocytes (%) (Auto) 6.4 % Eosinophils (%) (Auto) 0.0 % Basophils (%) (Auto) 0.0 % Neutrophils # (Auto) 10.4 TH/MM3 Lymphocytes # (Auto) 0.6 TH/MM3 Monocytes # (Auto) 0.8 TH/MM3 Eosinophils # (Auto) 0.0 TH/MM3 Basophils # (Auto) 0.0 TH/MM3 CBC Comment DIFF FINAL Differential Comment Blood Urea Nitrogen 51 MG/DL Creatinine 1.65 MG/DL Random Glucose 95 MG/DL Total Protein 5.9 GM/DL Albumin 2.6 GM/DL Calcium Level 7.3 MG/DL Alkaline Phosphatase 79 U/L Aspartate Amino Transf (AST/SGOT) 30 U/L Alanine Aminotransferase (ALT/SGPT) 31 U/L Total Bilirubin 0.2 MG/DL Sodium Level 148 MEQ/L Potassium Level 3.7 MEQ/L Chloride Level 120 MEQ/L Carbon Dioxide Level 18.8 MEQ/L Anion Gap 9 MEQ/L Estimat Glomerular Filtration Rate 31 ML/MIN Protein Corrected Calcium 7.9 MG/DL Activated Partial Thromboplast Time 87.0 SEC 52.5 SEC Blood Gas Puncture Site RT RADIAL Blood Gas Patient Temperature 98.6 Blood Gas HCO3 17 mmol/L Blood Gas Base Excess -9.1 mmol/L Blood Gas Oxygen Saturation 92 % Arterial Blood pH 7.25 Arterial Blood Partial Pressure CO2 40 mmHg Arterial Blood Partial Pressure O2 79 mmHg Arterial Blood Oxygen Content 10.6 Vol % Arterial Blood Carboxyhemoglobin 1.2 % Arterial Blood Methemoglobin 1.5 % Blood Gas Hemoglobin 8.1 G/DL Oxygen Delivery Device NASAL CANNULA Blood Gas Liter Flow 3 L/M Lactic Acid Level 0.9 mmol/L Date/Time Source Procedure Growth Status 12/14/17 05:46 Blood Peripheral Aerobic Blood Culture - Preliminary NO GROWTH IN 3 DAYS Resulted 12/14/17 05:46 Blood Peripheral Anaerobic Blood Culture - Preliminary NO GROWTH IN 3 DAYS Resulted 12/14/17 09:00 Sputum Endotracheal Gram Stain - Final Complete 12/14/17 09:00 Sputum Endotracheal Sputum Culture - Final HEAVY GROWTH NORMAL RESPIRATORY KIMBERLY Complete Physical Examination HEENT: normocephalic; atraumatic; no jaundice. CHEST: crackles and expiratory wheezes CARDIAC: Regular rate and rhythm with no murmur gallop or rubs. ABDOMEN: distended, tender to palpation, bowel sounds hypoactive EXTREMITIES: No clubbing, cyanosis, or edema. SKIN: Normal; no rash; no jaundice. 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 (Christiano Hernandez) Assessment and Plan Plan - Dilated cecum/ ileus/ loose stools- Ct on 12/17/17 showed cecum distended , filled with fluid and stools, possible ileus. Significant atherosclerotic calcifications of aorta and multiple visceral arteries with high grade stenosis of the left common iliac artery and stenosis at the origin of the SMA and renal arteries couldn't be excluded. Pleural effusions, dilated pancreatic duct and chronic calcifications related to chronic pancreatitis. Patient not able to provide much history. she is with complaints of abd pain, and loose stools. Denies hematemesis or hematochezia. No nausea or vomiting. Abd X-ray with no acute findings. Per nurse, patient had multiple loose stools over night. C-diff ordered but patient hasn't had any BM today - Anemia- No bleeding reported, likely anemia of chronic dz - Respiratory distress. This was felt related to combination of pneumonia COPD exacerbation and underlying CHF. Patient was intubated then extubated, currently on bipap. per CCm - Hx of pancreatitis- recent extensive work up for this on previous admission - Hx of CAD, COPD, DVT on Eliquis per [facility] Plan: - NPO - KUB in the am - Cont. EES - consider SBFT - Supportive care - Further recommendations to follow based on results above - Patient seen and examined by Dr. Lilly and myself and this note is written on his behalf. (Christiano Hernandez) Physician Comments Patient seen and examined Agree with above Continue with current supportive care Monitor labs (Fish Lilly MD) Christiano Hernandez Dec 17, 2017 17:09 Fish Lilly MD Dec 17, 2017 22:15
[2017-12-17] MEDS: MIRTAZAPINE 15 MG TAB PO SCH (20:39)
[2017-12-18] VITALS (15 sets, daily range): BP systolic 150–178; BP diastolic 69–90; PULSE 65–87; RESP 13–27; TEMP 98–98.7; O2SAT 89–100
[2017-12-18] MEDS: PIPERACIL-TAZO 3.375 GM PREMIX 50 ML IV SCH ×3 (01:01→17:06)
[2017-12-18] MEDS: METOPROLOL TARTRATE 50 MG TAB PO SCH ×4 (01:01→23:56)
[2017-12-18] MEDS: CHLORHEXIDINE GLUCONATE 2 % 1 PACK (2 CLOTHS) TOP SCH (03:33)
[2017-12-18] MEDS: RESP: ALBUTEROL 2.5 MG/IPRATROPIUM 0.5 MG NEB (SCH) NEB ×6 (04:00→23:25)
[2017-12-18] MEDS: metroNIDAZOLE 500 MG TAB PO SCH ×3 (05:09→22:08)
--- NOTE | 2017-12-18 05:33 | RADRPT ---
EXAM DATE/TIME: 12/18/2017 03:08 [facility] COMPARISON: CHEST SINGLE AP, December 17, 2017, 11:03. INDICATIONS : Shortness of breath, possible pulmonary disease. MEDICAL HISTORY : Lupus. Hypertension SURGICAL HISTORY : Parathyroid surgery ENCOUNTER: Subsequent ACUITY: 4 - 6 days PAIN SCORE: Non-responsive. LOCATION: Bilateral chest FINDINGS: There is persistent consolidation in the left lower lobe with loss of delineation of the medial two t hirds of the left hemidiaphragm. There is also a meniscal interface laterally left lower chest manas cteristic of a pleural effusion. Patchy areas of opacity in the lower lateral right lung adjacent to old rib fractures. No consolidative infiltrates in the upper lung. The heart is upper limits latisha l size. CONCLUSION: Persistent left lower lung consolidation and new small to moderate size left pleural effusion. Stabl e non-consolidative opacity lateral right. Angelito Rossi MD on December 18, 2017 at 5:30 Board Certified Radiologist. This report was verified electronically.
--- NOTE | 2017-12-18 05:35 | RADRPT ---
EXAM DATE/TIME: 12/18/2017 03:14 [facility] COMPARISON: CT ABDOMEN & PELVIS W CONTRAST, December 17, 2017, 12:58. ABDOMEN KUB ONLY, December 17, 2017, 10:51. INDICATIONS : Abdominal pain. MEDICAL HISTORY : Hypertension. Lupus. SURGICAL HISTORY : Coronary artery stent. ENCOUNTER: Subsequent ACUITY: 4 - 6 days PAIN SCORE: 3/10 LOCATION: Bilateral Abdomen FINDINGS: Supine view of the abdomen was performed. The abdominal bowel gas pattern is normal. No abnormal ma sses, calcifications, or organomegaly is seen. Prominent splenic artery calcification. The osseous structures are stable with proximal right femoral hardware. IVC filter in place. Iodinated contrast is seen within the lumen of the urinary bladder from prior contrast enhanced CT. Of left lower lung consolidation. Left. CONCLUSION: No dilated loops of small or large bowel. Left lower lung consolidation. Angelito Rossi MD on December 18, 2017 at 5:31 Board Certified Radiologist. This report was verified electronically.
[2017-12-18] MEDS: LABETALOL HCL 100 MG/20 ML VIAL IV PUSH PRN ×2 (06:01→22:55)
[2017-12-18] MEDS: CHLORHEXIDINE 0.12% (ORAL KIT) 15 ML CUP MT SCH ×2 (08:00→20:00)
[2017-12-18 08:01] LABS: AUTOMATED NEUTROPHIL # 9.5 TH/MM3 (1.8-7.7); BASOPHIL % 0.1 % (0.0-2.0); EOSINOPHIL % 0.1 % (0.0-4.0); HEMATOCRIT 24.5 % (35.0-46.0); HEMOGLOBIN 8.4 GM/DL (11.6-15.3); LYMPH % 6.4 % (9.0-44.0); LYMPHOCYTE # 0.7 TH/MM3 (1.0-4.8); MEAN CELL VOLUME 92.9 FL (80.0-100.0); MEAN CORPUSCULAR HEMOGLOBIN 31.7 PG (27.0-34.0); MEAN CORPUSCULAR HGB CONC 34.1 % (32.0-36.0); MEAN PLATELET VOLUME 7.1 FL (7.0-11.0); MONOCYTE # 0.7 TH/MM3 (0-0.9); NEUT % 87.4 % (16.0-70.0); PLATELET COUNT 259 TH/MM3 (150-450); RED BLOOD COUNT 2.64 MIL/MM3 (4.00-5.30); RED CELL DISTRIBUTION WIDTH 14.8 % (11.6-17.2); WHITE BLOOD COUNT 10.8 TH/MM3 (4.0-11.0)
[2017-12-18] MEDS: SODIUM CHLORIDE 0.9% FLUSH 10 ML FLUSH IV FLUSH SCH ×2 (08:03→21:12)
[2017-12-18] MEDS: BUDESONIDE-FORMOTEROL 160/4.5 MCG INHALER INH SCH ×2 (08:03→21:12)
[2017-12-18] MEDS: methylPREDNISolone SOD SUCC 40 MG/1 ML VIAL IV PUSH SCH ×2 (08:04→21:12)
[2017-12-18] MEDS: FUROSEMIDE 20 MG/2 ML VIAL IV PUSH SCH ×2 (08:04→17:06)
[2017-12-18] MEDS: FAMOTIDINE 20 MG/2 ML VIAL IV PUSH SCH ×2 (08:04→21:12)
[2017-12-18] MEDS: AZITHROMYCIN INJ 500 MG in SODIUM CHLOR 0.9% 250 ML INJ 250 ML IV SCH (08:05)
[2017-12-18] MEDS: SERTRALINE HCL 50 MG TAB PO SCH (08:05)
[2017-12-18] MEDS: POTASSIUM CHLORIDE 25 MEQ EFFERVESCENT TAB NG SCH (08:05)
[2017-12-18] MEDS: HYDROXYCHLOROQUINE SULFATE 200 MG TAB PO SCH (08:05)
[2017-12-18] MEDS: FERROUS SULFATE 325 MG (65 MG ELEMENTAL IRON) TAB PO SCH (08:05)
[2017-12-18] MEDS: CLOPIDOGREL 75 MG TAB PO SCH (08:05)
[2017-12-18] MEDS: SODIUM BICARBONATE 8.4% INJ 150 MEQ in WATER STERILE FOR INJ 850 ML IV SCH (08:12)
--- NOTE | 2017-12-18 10:20 | HHI.CCPN ---
Subjective Remarks/Hospital Course Patient is a 72-year-old female with past medical history of CAD s/p stent 05/13 , diastolic heart failure, COPD, lower ext DVTs on anticoagulation with Eliquis , PAD, lupus, depression, and hypertension was brought in by [facility]. Patient had Oxygen saturation was 70s on room air as per [facility]. Despite breathing treatments patient continued to deteriorate with respiratory rate in 50s and hypoxemic and patient was intubated by [facility] after Ativan 4mg IV and 20mg of etomidate. In the ER patient was evaluated by Dr. Maguire. Received Solu-Medrol and breathing treatments, also IV Lasix 40 mg 1. Chest x-ray showed Hyperinflated lungs with diffuse increased interstitial markings related to edema. Pt was also hypothermic at 93, WBC 11.7. BUN/creatinine elevated at 48/ 1.95 baseline 1.3 to 1.6. Pt given Lasix 40mg IV and Thompson inserted. Also sedated on propofol drip and given nitroglycerin topical. ABG - pH of 7.23. pO2 - 258. pCO2 45. HCO3 low at 18 on 60% I evaluated the patient in the ICU. Patient's respiratory failure seems to be secondary to combination of pneumonia COPD exacerbation and underlying CHF. However with probable pneumonia and sepsis (leukocytosis, hypothermia, bilateral interstitial infiltrates) I will hold on further diuresis. Continue gentle hydration with normal saline at 75 ML per hour. IV Solu-Medrol and breathing treatments. Zosyn and azithromycin for pneumonia 12/15/17: Remains intubated sedated. Follows commands on sedation hold. Chest x -ray shows slight interval improvement in the infiltrates. Creatinine stable to slightly down. UO 2.3 L in 24 hours 12/16/17: Extubated yesterday tolerating well. No new chest x-ray. Creatinine remains stable. Urine output adequate. Good oxygen saturation on nasal cannula 12/17/17: Complaints of increasing shortness of breath and abdominal pain with nausea and vomiting. Patient was kept nothing by mouth. Chest x-ray shows bilateral effusions/atelectasis. Stat CT abdomen pelvis showed cecal dilation. ABG showing metabolic acidosis. Bicarbonate infusion started. 12/18/17: Clinically improved, breathing comfortably on nasal cannula. KUB does not show any colon Dilation. Having bowel movements. We'll repeat ABG to follow-up acidosis. DC IV bicarbonate infusion continue Lasix Objective Vital Signs Date Time Temp Pulse Resp B/P (MAP) Pulse Ox O2 Delivery O2 Flow Rate FiO2 12/18/17 09:25 98 Nasal Cannula 3.00 12/18/17 08:00 98.7 87 27 178/82 (114) 12/17/17 15:28 35 Intake and Output 12/18/17 12/18/17 12/19/17 08:00 16:00 00:00 Intake Total 816 ml 600 ml Balance 816 ml 600 ml Result Diagram: 12/18/17 0731 12/17/17 0535 Other Results Microbiology Date/Time Source Procedure Growth Status 12/17/17 18:23 Stool Stool Stool Occult Blood (DAJA) - Final HEMOCCULT POSITIVE Complete Laboratory Tests Test 12/17/17 11:07 Blood Gas Puncture Site RT RADIAL Blood Gas Patient Temperature 98.6 Blood Gas HCO3 17 mmol/L (22-26) Blood Gas Base Excess -9.1 mmol/L (-2-2) Blood Gas Oxygen Saturation 92 % (90-100) Arterial Blood pH 7.25 (7.380-7.420) Arterial Blood Partial Pressure CO2 40 mmHg (38-42) Arterial Blood Partial Pressure O2 79 mmHg (61-120) Arterial Blood Oxygen Content 10.6 Vol % (12.0-20.0) Arterial Blood Carboxyhemoglobin 1.2 % (0-4) Arterial Blood Methemoglobin 1.5 % (0-2) Blood Gas Hemoglobin 8.1 G/DL (12.0-16.0) Oxygen Delivery Device NASAL CANNULA Blood Gas Liter Flow 3 L/M Imaging Chest x-ray shows bilateral interstitial infiltrates Objective Remarks GENERAL: 72 year female, thin built, lying in bed in moderate distress due to shortness of breath and abdominal pain SKIN: Warm and dry. Open sore 2 x 2 cm right medial aspect of ankle with dressing applied. Right medial thigh has wound with dressing applied HEAD: Atraumatic. Normocephalic. EYES: Pupils equal and round around 3 mm bilaterally and reactive. ENT: Airway widely patent NECK: Trachea midline. No JVD. CARDIOVASCULAR: Regular rate and rhythm. S1, S2. No S4. No murmur RESPIRATORY: Few crackles heard in bases, improved. GASTROINTESTINAL: Abdomen soft nontender today MUSCULOSKELETAL: Open sore 2 x 2 cm right medial aspect of ankle with dressing applied. Right medial thigh has wound with dressing applied NEUROLOGICAL: Alert awake oriented 3 no focal deficits A/P Assessment and Plan A/P Assessment and Plan Neuro/Psych: History depression CT brain -no acute intracranial findings Resumed Sertraline and mirtazapine CV: Pulmonary edema/ fluid overload Coronary artery disease status post stent RCA 05/13 Dr. Moody Hypothermia-resolved Peripheral arterial disease status post lower extremity stenting Hypertension Dyslipidemia Pulmonary hypertension likely type III DC bicarbonate infusion IV Lasix 20 mg twice a day Continue home medications Plavix and IV Heparin Prev Echocardiogram 09/12 revealed EF around 55%. No regional wall motion abnormality. Normal systolic and diastolic function Metoprolol to 50 q8h and Norvasc to 10 mg daily, holding lisinopril Resp: Acute hypoxic respiratory failure Acute COPD exacerbation Probable pneumonia 50 year tobacco history V Lasix as above, PRN BiPAP Albuterol/ipratropium aerosols every 4 hours with albuterol aerosols every 2 hours. IV Solu-Medrol 40 every 12 Broad-spectrum antibiotics with IV Zosyn and azithromycin Symbicort every 12 GI: Cecal dilatation History of Cholelithiasis, Pancreatitis Clear liquid diet per GI. Famotidine KUB today no ileus Rheum/Endo: History of RA Lupus? Hydroxychloroquine 200 mg daily for her underlying rheumatologic disorder SSI Renal: Acute on chronic kidney injury History of nephrolithiasis DC Bicarbonate infusion IV Lasix as above Monitor urine output Accurate I's and O's Avoid nephrotoxic drugs Heme: Normocytic anemia Chronic anticoagulation with Eliquis History of DVTs bilateral lower extremities Continue clopidogrel/hold Eliquis due to renal failure Continue IV Heparin ID: Severe Sepsis-improved Pneumonia Continue Zosyn and azithromycin F/U C. difficile Flagyl by mouth MSK: Lower extremity ankle and thigh wound ulcers/chronic FEN: Replace electrolytes as clinically indicated. Access - Utilize peripheral IV. Central line if indicated Prophylaxis - GI - famotidine - DVT - IV Heparin Level 2 Consult hospitalist to assume care in am 12/19/17. Transfer to med surg with Tele Pratik Rucker MD Dec 18, 2017 10:20
[2017-12-18 10:32] LABS: ALBUMIN 2.9 GM/DL (3.4-5.0); CALCIUM 7.4 MG/DL (8.5-10.1); CALCIUM-PROTEIN CORRECTED 7.7 MG/DL (8.5-10.1); CREATININE 1.83 MG/DL (0.50-1.00); MAGNESIUM 1.8 MG/DL (1.5-2.5); TOTAL BILIRUBIN ADULT 0.4 MG/DL (0.2-1.0); TOTAL PROTEIN 6.5 GM/DL (6.4-8.2)
[2017-12-18] MEDS ORDERED: POTASSIUM CHLORIDE 20 MEQ CONTROLLED RELEASE TAB PO ONE (11:15)
--- NOTE | 2017-12-18 15:08 | HHI.GIFU ---
GI Follow-up Note Consult Follow-up Subjective: Patient laying in bed comfortably, no new complaints. +ve bowel movements Objective: PHYSICAL EXAMINATION: Vitals signs stable No fever HEENT: Pupils round and reactive to light; normocephalic; atraumatic; no jaundice. Throat is clear. NECK: Neck is supple, no JVD, no lymphadenopathy. CHEST: Chest is clear to auscultation and percussion. CARDIAC: Regular rate and rhythm with no murmur gallop or rubs. ABDOMEN: Soft, nondistended, nontender; no hepatosplenomegaly; bowel sounds are present in all four quadrants. EXTREMITIES: No clubbing, cyanosis, or edema. SKIN: Normal; no rash; no jaundice. DIETETICS DIRECTOR: No focal deficits; alert and oriented times three. Available Data (labs, X- Rays, Procedues) : Last Impressions Chest X-Ray 12/18/17 06 Signed Impressions: Service Date/Time: Monday, December 18, 2017 03:08 - CONCLUSION: Persistent left lower lung consolidation and new small to moderate size left pleural effusion. Stable non-consolidative opacity lateral right. Angelito Rossi MD Abdomen X-Ray 12/18/17 0600 Signed Impressions: Service Date/Time: Monday, December 18, 2017 03:14 - CONCLUSION: No dilated loops of small or large bowel. Left lower lung consolidation. Angelito Rossi MD Abdomen/Pelvis CT 12/17/17 0000 Signed Impressions: Service Date/Time: Sunday, December 17, 2017 12:58 - CONCLUSION: 1. The cecum appears distended not present on the prior examination filled with fluid and stool of uncertain etiology could be due to ileus without signs of ischemic bowel for technique, however early ischemic bowel could be unremarkable by CT. Significant atherosclerotic calcifications of aorta and multiple visceral arteries with high-grade stenosis of the left common iliac artery and stenosis at the origin of the SMA and renal arteries are not excluded. 2. Bilateral pleural effusions and bibasilar consolidation or compressive collapse. 3. Dilated pancreatic duct and chronic calcifications related to chronic pancreatitis. Son Rivera MD Head CT 12/14/17 0000 Signed Impressions: Service Date/Time: November 06:08 - CONCLUSION: 1. No acute abnormality seen. 2. Mild atrophy. Chaim Lin MD Laboratory Tests Test 1/21/18 05:35 12/17/17 06:25 12/17/17 11:07 12/17/17 12:39 White Blood Count 11.8 TH/MM3 Red Blood Count 2.46 MIL/MM3 Hemoglobin 7.7 GM/DL Hematocrit 23.1 % Mean Corpuscular Volume 94.0 FL Mean Corpuscular Hemoglobin 31.4 PG Mean Corpuscular Hemoglobin Concent 33.3 % Red Cell Distribution Width 15.2 % Platelet Count 296 TH/MM3 Mean Platelet Volume 7.1 FL Neutrophils (%) (Auto) 88.6 % Lymphocytes (%) (Auto) 5.0 % Monocytes (%) (Auto) 6.4 % Eosinophils (%) (Auto) 0.0 % Basophils (%) (Auto) 0.0 % Neutrophils # (Auto) 10.4 TH/MM3 Lymphocytes # (Auto) 0.6 TH/MM3 Monocytes # (Auto) 0.8 TH/MM3 Eosinophils # (Auto) 0.0 TH/MM3 Basophils # (Auto) 0.0 TH/MM3 CBC Comment DIFF FINAL Differential Comment Blood Urea Nitrogen 51 MG/DL Creatinine 1.65 MG/DL Random Glucose 95 MG/DL Total Protein 5.9 GM/DL Albumin 2.6 GM/DL Calcium Level 7.3 MG/DL Alkaline Phosphatase 79 U/L Aspartate Amino Transf (AST/SGOT) 30 U/L Alanine Aminotransferase (ALT/SGPT) 31 U/L Total Bilirubin 0.2 MG/DL Sodium Level 148 MEQ/L Potassium Level 3.7 MEQ/L Chloride Level 120 MEQ/L Carbon Dioxide Level 18.8 MEQ/L Anion Gap 9 MEQ/L Estimat Glomerular Filtration Rate 31 ML/MIN Protein Corrected Calcium 7.9 MG/DL Activated Partial Thromboplast Time 87.0 SEC 52.5 SEC Blood Gas Puncture Site RT RADIAL Blood Gas Patient Temperature 98.6 Blood Gas HCO3 17 mmol/L Blood Gas Base Excess -9.1 mmol/L Blood Gas Oxygen Saturation 92 % Arterial Blood pH 7.25 Arterial Blood Partial Pressure CO2 40 mmHg Arterial Blood Partial Pressure O2 79 mmHg Arterial Blood Oxygen Content 10.6 Vol % Arterial Blood Carboxyhemoglobin 1.2 % Arterial Blood Methemoglobin 1.5 % Blood Gas Hemoglobin 8.1 G/DL Oxygen Delivery Device NASAL CANNULA Blood Gas Liter Flow 3 L/M Lactic Acid Level 0.9 mmol/L Test 12/17/17 18:44 12/18/17 07:31 12/18/17 11:25 Activated Partial Thromboplast Time 44.4 SEC 47.3 SEC White Blood Count 10.8 TH/MM3 Red Blood Count 2.64 MIL/MM3 Hemoglobin 8.4 GM/DL Hematocrit 24.5 % Mean Corpuscular Volume 92.9 FL Mean Corpuscular Hemoglobin 31.7 PG Mean Corpuscular Hemoglobin Concent 34.1 % Red Cell Distribution Width 14.8 % Platelet Count 259 TH/MM3 Mean Platelet Volume 7.1 FL Neutrophils (%) (Auto) 87.4 % Lymphocytes (%) (Auto) 6.4 % Monocytes (%) (Auto) 6.0 % Eosinophils (%) (Auto) 0.1 % Basophils (%) (Auto) 0.1 % Neutrophils # (Auto) 9.5 TH/MM3 Lymphocytes # (Auto) 0.7 TH/MM3 Monocytes # (Auto) 0.7 TH/MM3 Eosinophils # (Auto) 0.0 TH/MM3 Basophils # (Auto) 0.0 TH/MM3 CBC Comment DIFF FINAL Differential Comment Blood Urea Nitrogen 52 MG/DL Creatinine 1.83 MG/DL Random Glucose 72 MG/DL Total Protein 6.5 GM/DL Albumin 2.9 GM/DL Calcium Level 7.4 MG/DL Magnesium Level 1.8 MG/DL Alkaline Phosphatase 88 U/L Aspartate Amino Transf (AST/SGOT) 29 U/L Alanine Aminotransferase (ALT/SGPT) 30 U/L Total Bilirubin 0.4 MG/DL Sodium Level 151 MEQ/L Potassium Level 2.9 MEQ/L Chloride Level 108 MEQ/L Carbon Dioxide Level 29.0 MEQ/L Anion Gap 14 MEQ/L Estimat Glomerular Filtration Rate 27 ML/MIN Protein Corrected Calcium 7.7 MG/DL Blood Gas Puncture Site RT RADIAL Blood Gas Patient Temperature 98.6 Blood Gas HCO3 30 mmol/L Blood Gas Base Excess 6.4 mmol/L Blood Gas Oxygen Saturation 92 % Arterial Blood pH 7.50 Arterial Blood Partial Pressure CO2 39 mmHg Arterial Blood Partial Pressure O2 67 mmHg Arterial Blood Oxygen Content 10.3 Vol % Arterial Blood Carboxyhemoglobin 1.5 % Arterial Blood Methemoglobin 1.5 % Blood Gas Hemoglobin 7.9 G/DL Oxygen Delivery Device NASAL CANNULA Blood Gas Liter Flow 3 L/M Allergies Coded Allergies Type Severity Reaction Last Updated Verified cephalexin Allergy Unknown rash 12/14/17 Yes diatrizoate meglumine Allergy Unknown rash 12/14/17 Yes fluconazole Allergy Unknown rash 12/14/17 Yes gadobenic acid Allergy Unknown rash 12/14/17 Yes gadodiamide Allergy Unknown rash 12/14/17 Yes gadoteridol Allergy Unknown rash 12/14/17 Yes iodixanol Allergy Unknown rash 12/14/17 Yes iohexol Allergy Unknown rash 12/14/17 Yes pravastatin Allergy Unknown rash 12/14/17 Yes Active Scripts Medications Dose Route/Sig Max Daily Dose Days Date Category Dose Instructions Eliquis (Apixaban) 5 Mg Tab 5 Mg PO BID 12/14/17 Reported Iron (Ferrous Sulfate) 18 Mg Tab 65 Mg PO DAILY 09/03/17 Reported Norvasc (Amlodipine Besylate) 5 Mg Tab 5 Mg PO DAILY 07/12/17 Rx Lisinopril 5 Mg Tab 5 Mg PO DAILY 07/09/17 Reported Lopressor (Metoprolol Tartrate) 50 Mg Tab 50 Mg PO Q12HR 05/23/17 Rx Plavix (Clopidogrel Bisulfate) 75 Mg Tab 75 Mg PO DAILY 05/23/17 Rx Mirtazapine 30 Mg Tab 30 Mg PO HS 05/17/17 Reported Sertraline (Sertraline HCl) 50 Mg Tab 50 Mg PO DAILY 05/17/17 Reported Plaquenil (Hydroxychloroquine Sulfate) 200 Mg Tab 200 Mg PO DAILY 05/17/17 Reported Take with food ASSESSMENT/PLAN: Seen and examined, doing well. No active bleeding. Needs egd/ colonoscopy once more stable for Heme +ve stools. Monitor labs It was a pleasure seeing Precious Plaza. Thank you for this consult. Entered by: Ramos Paez MD Dec 18, 2017 15:08
[2017-12-18] MEDS: MIRTAZAPINE 15 MG TAB PO SCH (21:13)
[2017-12-18] MEDS: HEPARIN 25,000 UNITS-D5W 250 ML - PREMIX IV PRN (22:41)
[2017-12-18] MEDS: MORPHINE SULFATE 2 MG/ML INJ IV PRN (23:10)
[2017-12-19] VITALS (9 sets, daily range): BP systolic 138–174; BP diastolic 61–84; PULSE 61–92; RESP 18–21; TEMP 97.8–99.3; O2SAT 91–100
[2017-12-19] MEDS: PIPERACIL-TAZO 3.375 GM PREMIX 50 ML IV SCH ×3 (00:10→20:20)
[2017-12-19] MEDS: CHLORHEXIDINE GLUCONATE 2 % 1 PACK (2 CLOTHS) TOP SCH (03:32)
[2017-12-19] MEDS: RESP: ALBUTEROL 2.5 MG/IPRATROPIUM 0.5 MG NEB (SCH) NEB ×5 (04:56→19:25)
[2017-12-19] MEDS: metroNIDAZOLE 500 MG TAB PO SCH ×3 (05:18→20:20)
[2017-12-19] MEDS: hydrALAZINE HCL 20 MG/ML VIAL IV PUSH PRN (06:08)
[2017-12-19] MEDS: SODIUM CHLORIDE 0.9% FLUSH 10 ML FLUSH IV FLUSH PRN ×2 (06:09→20:24)
[2017-12-19] MEDS: CHLORHEXIDINE 0.12% (ORAL KIT) 15 ML CUP MT SCH ×2 (08:00→20:00)
--- NOTE | 2017-12-19 08:40 | HHI.PR ---
Subjective Remarks in no acute distress. however on oxygen via [place] has slight abdominal pain and had ' some black stools last night'. no fever. has slight abdominal pain with no nausea or vomiting. Objective Vitals Vital Signs Date Time Temp Pulse Resp B/P (MAP) Pulse Ox O2 Delivery O2 Flow Rate FiO2 12/19/17 04:00 98.7 69 18 174/84 (114) 96 12/19/17 03:48 67 12/18/17 23:47 66 12/18/17 23:45 Nasal Cannula 3.00 12/18/17 23:41 98.0 68 18 175/76 (109) 97 12/18/17 22:00 66 12/18/17 20:00 65 12/18/17 20:00 98.6 65 22 154/90 (111) 99 12/18/17 20:00 99 Nasal Cannula 3.00 12/18/17 18:00 73 12/18/17 16:00 73 12/18/17 16:00 89 Nasal Cannula 3.00 12/18/17 16:00 98.7 73 24 160/70 (100) 89 12/18/17 14:00 78 12/18/17 12:00 72 12/18/17 12:00 98.5 72 19 167/74 (105) 99 12/18/17 12:00 99 Nasal Cannula 3.00 12/18/17 10:00 67 12/18/17 09:25 98 Nasal Cannula 3.00 I/O 12/18/17 12/18/17 12/18/17 12/19/17 12/19/17 12/19/17 07:00 15:00 23:00 07:00 15:00 23:00 Intake Total 816 ml 1186 ml 980 ml 120 ml Output Total 1 ml Balance 816 ml 1186 ml 980 ml 119 ml Intake Oral 850 ml 120 ml IV Total 816 ml 1186 ml 130 ml Output Urine Total 1 ml # Voids 5 2 1 # Bowel Movements 2 1 1 2 Result Diagram: 12/18/17 0731 12/18/17 0731 Imaging Last Impressions Chest X-Ray 12/18/17 0600 Signed Impressions: Service Date/Time: Monday, December 18, 2017 03:08 - CONCLUSION: Persistent left lower lung consolidation and new small to moderate size left pleural effusion. Stable non-consolidative opacity lateral right. Angelito Rossi MD Abdomen X-Ray 12/18/17 0600 Signed Impressions: Service Date/Time: Monday, December 18, 2017 03:14 - CONCLUSION: No dilated loops of small or large bowel. Left lower lung consolidation. Angelito Rossi MD Abdomen/Pelvis CT 12/17/17 0000 Signed Impressions: Service Date/Time: Sunday, December 17, 2017 12:58 - CONCLUSION: 1. The cecum appears distended not present on the prior examination filled with fluid and stool of uncertain etiology could be due to ileus without signs of ischemic bowel for technique, however early ischemic bowel could be unremarkable by CT. Significant atherosclerotic calcifications of aorta and multiple visceral arteries with high-grade stenosis of the left common iliac artery and stenosis at the origin of the SMA and renal arteries are not excluded. 2. Bilateral pleural effusions and bibasilar consolidation or compressive collapse. 3. Dilated pancreatic duct and chronic calcifications related to chronic pancreatitis. Son Rivera MD Head CT 12/14/17 0000 Signed Impressions: Service Date/Time: November 06:08 - CONCLUSION: 1. No acute abnormality seen. 2. Mild atrophy. Chaim Lin MD Objective Remarks GENERAL: This is a well-nourished, well-developed patient, in no apparent distress. CARDIOVASCULAR: Regular rate and regular rhythm without murmurs, gallops, or rubs. RESPIRATORY: Clear to auscultation. Breath sounds equal bilaterally. No wheezes , rales, or rhonchi. GASTROINTESTINAL: Abdomen soft, non-tender, nondistended. Normal, active bowel sounds MUSCULOSKELETAL: Extremities without clubbing, cyanosis, or edema. NEURO: Alert & Oriented x4 to person, place, time, situation. Moves all ext x4 Procedures intubation. Medications and IVs Inpatient Medications Acetaminophen (Tylenol) 650 mg Q6H PRN PO HEADACHE OR TEMP > 101 F Last administered on 12/15/17at 23:57; Start 12/15/17 at 23:45 Albuterol Sulfate (Albuterol Neb) 2.5 mg Q4HR NEB PRN INH SHORTNESS OF BREATH; Start 12/14/17 at 07:15 Albuterol/ Ipratropium (Duoneb Neb) 1 ampule Q4HR NEB NEB Last administered on 12/18/17at 09:29; Start 12/17/17 at 12:00 Amlodipine Besylate (Norvasc) 10 mg DAILY PO Last administered on 12/18/17at 08: 05; Start 12/17/17 at 09:00 Azithromycin 500 mg/Sodium Chloride 250 ml @ 250 mls/hr Q24H IV Last administered on 12/18/17at 08:05; Start 12/14/17 at 08:00 Budesonide/ Formoterol Fumarate (Symbicort 160-4.5 Mcg Inh) 2 puff Q12HR INH Last administered on 12/18/17at 21:12; Start 12/16/17 at 21:00 Chlorhexidine Gluconate (Chlorhexidine 2% Cloth) 3 pack UNSCH PRN TOP HYGIENIC CARE; Start 12/14/17 at 07:15 Chlorhexidine Gluconate (Peridex 0.12% Liq) 15 ml BID@08,20 MT Last administered on 12/14/17at 20:00; Start 12/14/17 at 08:00 Clopidogrel Bisulfate (Plavix) 75 mg DAILY PO Last administered on 12/18/17at 08 :05; Start 12/15/17 at 09:00 Famotidine (Pepcid Inj) 10 mg Q12HR IV PUSH Last administered on 12/18/17at 21: 12; Start 12/16/17 at 21:00 Ferrous Sulfate (Ferrous Sulfate) 325 mg DAILY PO Last administered on at 08:05; Start 12/15/17 at 09:00 Furosemide (Lasix Inj) 20 mg BID@09,18 IV PUSH Last administered on 12/18/17at 17:06; Start 12/17/17 at 18:00 Heparin Sodium/ Dextrose 250 ml @ 7 mls/hr TITRATE PRN IV Coagulation Management Last administered on 12/18/17at 22:41; Start 12/14/17 at 15:45 Hydralazine HCl (Apresoline Inj) 20 mg Q4H PRN IV PUSH SBP > 160 MMHG Last administered on 12/19/17at 06:08; Start 12/15/17 at 16:00 Hydroxychloroquine Sulfate (Plaquenil) 200 mg DAILY PO Last administered on at 08:05; Start 12/15/17 at 09:00 Labetalol HCl (Trandate Inj) 20 mg Q4H PRN IV PUSH SYS BP GREATER THAN 160 MMHG Last administered on 12/18/17at 22:55; Start 12/14/17 at 13:15 Methylprednisolone Sodium Succinate (SoluMEDROL INJ) 40 mg Q12HR IV PUSH Last administered on 12/18/17at 21:12; Start 12/16/17 at 21:00 Metoprolol Tartrate (Lopressor) 50 mg Q8H PO Last administered on 12/18/17at 23: 56; Start 12/16/17 at 16:00 Metronidazole (Flagyl) 500 mg Q8HR PO Last administered on 12/19/17at 05:18; Start 12/17/17 at 14:00 Mirtazapine (Remeron) 30 mg HS PO Last administered on 12/18/17at 21:13; Start 12/16/17 at 21:00 Miscellaneous Information 1 [id number] ; Start 12/14/17 at 07:15 Morphine Sulfate (Morphine Inj) 2 mg Q4H PRN IV PAIN 1-10 Last administered on 12/18/17at 23:10; Start 12/17/17 at 16:30 Nitroglycerin (Nitroglycerin 2% Oint) 1 inch ONCE ONCE TOPICAL Last administered on 12/14/17at 06:05; Start 12/14/17 at 05:45; Stop 12/14/17 at 05:46 ; Status DC Nitroglycerin/ Dextrose 250 ml @ 0 mls/hr TITRATE ONCE IV Last administered on 12/14/17at 07:03; Start 12/14/17 at 06:45; Stop 12/14/17 at 06:46; Status DC Ondansetron HCl (Zofran Inj) 4 mg Q4H PRN IV PUSH NAUSEA; Start 12/17/17 at 15: 00 Piperacillin Sod/ Tazobactam Sod 50 ml @ 100 mls/hr Q8H IV Last administered on 12/19/17at 00:10; Start 12/14/17 at 09:00 Potassium Bicarb/ Potassium Chloride (K-Lyte Cl Eff) 25 meq DAILY NG Last administered on 12/18/17at 08:05; Start 12/17/17 at 14:45 Potassium Chloride (KCl) 40 meq NOW ONCE PO Last administered on 12/18/17at 11: 15; Start 12/18/17 at 11:15; Stop 12/18/17 at 11:16; Status DC Propofol 100 ml @ 0 mls/hr TITRATE PRN IV SEDATION Last administered on at 06:45; Start 12/14/17 at 05:45; Stop 12/17/17 at 11:26; Status DC Sertraline HCl (Zoloft) 50 mg DAILY PO Last administered on 12/18/17at 08:05; Start 12/17/17 at 09:00 Sodium Bicarbonate 150 meq/Sterile Water 1,000 ml @ 100 mls/hr Q10H IV Last administered on 12/18/17at 08:12; Start 12/17/17 at 13:00; Stop 12/18/17 at 10:11 ; Status DC Sodium Bicarbonate (Sodium Bicarbonate 8.4% Inj) 100 meq ONCE ONCE IV PUSH Last administered on 12/17/17at 11:36; Start 12/17/17 at 11:30; Stop 12/17/17 at 11:31; Status DC Sodium Chloride 1,000 ml @ 75 mls/hr [id number] IV Last administered on at 06:46; Start 12/14/17 at 15:00; Stop 12/17/17 at 11:26; Status DC Sodium Chloride (NS Flush) 2 ml BID IV FLUSH Last administered on 12/18/17at 21: 12; Start 12/14/17 at 09:00 A/P Problem List: (1) Acute hypoxemic respiratory failure ICD Code: J96.01 - Acute respiratory failure with hypoxia Status: Acute (2) Sepsis ICD Code: A41.9 - Sepsis, unspecified organism (3) COPD with acute exacerbation ICD Code: J44.1 - Chronic obstructive pulmonary disease with (acute) exacerbation (4) Pneumonia ICD Code: J18.9 - Pneumonia, unspecified organism Status: Acute (5) CHF exacerbation ICD Code: I50.9 - Heart failure, unspecified Status: Acute (6) Pulmonary hypertension due to COPD ICD Code: I27.23 - Pulmonary hypertension due to lung diseases and hypoxia; J44.9 - Chronic obstructive pulmonary disease, unspecified (7) PAD (peripheral artery disease) ICD Code: I73.9 - Peripheral vascular disease, unspecified Status: Chronic (8) COPD (chronic obstructive pulmonary disease) ICD Code: J44.9 - Chronic obstructive pulmonary disease, unspecified Status: Chronic (9) Chronic anticoagulation ICD Code: Z79.01 - 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 of anticoagulants (10) Anemia ICD Code: D64.9 - Anemia, unspecified Status: Acute (11) HTN (hypertension) ICD Code: I10 - Essential (primary) hypertension Status: Chronic (12) Hx of deep venous thrombosis ICD Code: Z86.718 - Personal history of other venous thrombosis and embolism Status: Chronic (13) CAD (coronary artery disease) ICD Code: I25.10 - Atherosclerotic heart disease of viejas coronary artery without angina pectoris Status: Chronic (14) Rheumatoid arthritis ICD Code: M06.9 - Rheumatoid arthritis, unspecified Status: Chronic (15) CKD (chronic kidney disease) stage 3, GFR 30-59 ml/min ICD Code: N18.3 - Chronic kidney disease, stage 3 (moderate) Status: Chronic Assessment and Plan A/P History depression CT brain -no acute intracranial findings Resumed Sertraline and mirtazapine Pulmonary edema/ fluid overload Coronary artery disease status post stent RCA 05/13 Dr. Moody Hypothermia-resolved Peripheral arterial disease status post lower extremity stenting Hypertension Dyslipidemia Pulmonary hypertension IV Lasix 20 mg twice a day Continue home medications Plavix and IV Heparin- eliquis on hold for now due to GI bleed. Prev Echocardiogram 09/12 revealed EF around 55%. No regional wall motion abnormality. Normal systolic and diastolic function Metoprolol to 50 q8h and Norvasc to 10 mg daily, holding lisinopril Acute hypoxic respiratory failure-resolved Acute COPD exacerbation Probable pneumonia 50 year tobacco history IV Lasix as above, PRN BiPAP Albuterol/ipratropium aerosols every 4 hours with albuterol aerosols every 2 hours. IV Solu-Medrol 40 every 12 Broad-spectrum antibiotics with IV Zosyn and azithromycin Symbicort every 12 walk test before discharge. Cecal dilatation GI bleed History of Cholelithiasis, Pancreatitis continue Pepcid monitor H/H GI following; needs EGD and colonoscopy- History of RA Lupus? Hydroxychloroquine 200 mg daily for her underlying rheumatologic disorder SSI Acute on chronic kidney injury hypernatremia hypokalemia History of nephrolithiasis IV Lasix as above monitor the electrolytes and replace as needed. Monitor urine output Accurate I's and O's Avoid nephrotoxic drugs Normocytic anemia Chronic anticoagulation with Eliquis History of DVTs bilateral lower extremities Continue clopidogrel/hold Eliquis due to renal failure/GI bleed Continue IV Heparin Severe Sepsis-improved Pneumonia Continue Zosyn and azithromycin F/U C. difficile Flagyl by mouth Lower extremity ankle and thigh wound ulcers/chronic DVT prophylaxis; on IV Heaprin Discharge Planning dc planning; home with [facility]HC- within the next couple of days- if remains stable- pending GI work-up. needs walk test before discharge. case management for [facility]. Problem Qualifiers (1) Pneumonia: (2) CHF exacerbation: Qualified Codes: I50.9 - Heart failure, unspecified (3) COPD (chronic obstructive pulmonary disease): (4) Anemia: (5) CAD (coronary artery disease): Christy Jacinto MD Dec 19, 2017 08:40
--- NOTE | 2017-12-19 08:41 | HHI.FF ---
Face to Face Verification Diagnosis: (1) COPD with acute exacerbation Physical Therapy Order: Evaluate and Treat Home Health Nursing Order: Medical education Signs/symptoms of disease process Medication education-adverse effect Nursing assessment with vital signs I have seen patient Precious Plaza on 12/19/17. My clinical findings support the need for the requested home health care services because: Ltd mobility - disease progression I certify that my clinical findings support that this patient is homebound because: Unsteady gait/balance Christy Jacinto MD Dec 19, 2017 08:40
[2017-12-19 09:35] LABS: CALCIUM 7.6 MG/DL (8.5-10.1); CREATININE 2.31 MG/DL (0.50-1.00)
[2017-12-19] MEDS: FUROSEMIDE 20 MG/2 ML VIAL IV PUSH SCH ×2 (10:03→17:10)
[2017-12-19] MEDS: FAMOTIDINE 20 MG/2 ML VIAL IV PUSH SCH ×2 (10:04→20:21)
[2017-12-19] MEDS: AZITHROMYCIN INJ 500 MG in SODIUM CHLOR 0.9% 250 ML INJ 250 ML IV SCH (10:04)
[2017-12-19] MEDS: methylPREDNISolone SOD SUCC 40 MG/1 ML VIAL IV PUSH SCH ×2 (10:05→20:21)
[2017-12-19] MEDS: METOPROLOL TARTRATE 50 MG TAB PO SCH ×3 (10:05→23:00)
[2017-12-19] MEDS: FERROUS SULFATE 325 MG (65 MG ELEMENTAL IRON) TAB PO SCH (10:05)
[2017-12-19] MEDS: CLOPIDOGREL 75 MG TAB PO SCH (10:05)
[2017-12-19] MEDS: SERTRALINE HCL 50 MG TAB PO SCH (10:06)
[2017-12-19] MEDS: SODIUM CHLORIDE 0.9% FLUSH 10 ML FLUSH IV FLUSH SCH ×2 (10:07→20:21)
[2017-12-19] MEDS: BUDESONIDE-FORMOTEROL 160/4.5 MCG INHALER INH SCH ×2 (10:08→20:23)
[2017-12-19] MEDS: POTASSIUM CHLORIDE 25 MEQ EFFERVESCENT TAB NG SCH (10:26)
--- NOTE | 2017-12-19 12:45 | HHI.GIFU ---
Subjective Remarks Pt resting in bed in NAD. c/o diffuse abd tenderness. Eating a little. No obvious bleeding. There has been difficulty obtaining stool sample b/c pt is incontinent and sample cannot be from urine. (Poala Monae) Objective Vitals I&O Vital Signs Date Time Temp Pulse Resp B/P (MAP) Pulse Ox O2 Delivery O2 Flow Rate FiO2 12/19/17 08:00 97.8 61 18 138/61 (86) 100 12/19/17 04:00 98.7 69 18 174/84 (114) 96 12/19/17 03:48 67 12/18/17 23:47 66 12/18/17 23:45 Nasal Cannula 3.00 12/18/17 23:41 98.0 68 18 175/76 (109) 97 12/18/17 22:00 66 12/18/17 20:00 65 12/18/17 20:00 98.6 65 22 154/90 (111) 99 12/18/17 20:00 99 Nasal Cannula 3.00 12/18/17 18:00 73 12/18/17 16:00 73 12/18/17 16:00 89 Nasal Cannula 3.00 12/18/17 16:00 98.7 73 24 160/70 (100) 89 12/18/17 14:00 78 I/O 12/18/17 12/18/17 12/18/17 12/19/17 12/19/17 12/19/17 07:00 15:00 23:00 07:00 15:00 23:00 Intake Total 816 ml 1186 ml 980 ml 120 ml Output Total 1 ml Balance 816 ml 1186 ml 980 ml 119 ml Intake Oral 850 ml 120 ml IV Total 816 ml 1186 ml 130 ml Output Urine Total 1 ml # Voids 5 2 1 # Bowel Movements 2 1 1 2 Laboratory Laboratory Tests Test 12/19/17 07:00 12/19/17 08:55 Activated Partial Thromboplast Time 57.4 Blood Urea Nitrogen 59 Creatinine 2.31 Random Glucose 112 Calcium Level 7.6 Sodium Level 148 Potassium Level 3.1 Chloride Level 106 Carbon Dioxide Level 31.0 Anion Gap 11 Estimat Glomerular Filtration Rate 21 Date/Time Source Procedure Growth Status 12/14/17 05:46 Blood Peripheral Aerobic Blood Culture - Final NO GROWTH IN 5 DAYS Complete 12/14/17 05:46 Blood Peripheral Anaerobic Blood Culture - Final NO GROWTH IN 5 DAYS Complete 12/17/17 18:23 Stool Stool Stool Occult Blood (DAJA) - Final HEMOCCULT POSITIVE Complete 12/14/17 09:00 Sputum Endotracheal Gram Stain - Final Complete 12/14/17 09:00 Sputum Endotracheal Sputum Culture - Final HEAVY GROWTH NORMAL RESPIRATORY KIMBERLY Complete Imaging Last Impressions Chest X-Ray 12/18/17 0600 Signed Impressions: Service Date/Time: Monday, December 18, 2017 03:08 - CONCLUSION: Persistent left lower lung consolidation and new small to moderate size left pleural effusion. Stable non-consolidative opacity lateral right. Angelito Rossi MD Abdomen X-Ray 12/18/17 0600 Signed Impressions: Service Date/Time: Monday, December 18, 2017 03:14 - CONCLUSION: No dilated loops of small or large bowel. Left lower lung consolidation. Angelito Rossi MD Abdomen/Pelvis CT 12/17/17 0000 Signed Impressions: Service Date/Time: Sunday, December 17, 2017 12:58 - CONCLUSION: 1. The cecum appears distended not present on the prior examination filled with fluid and stool of uncertain etiology could be due to ileus without signs of ischemic bowel for technique, however early ischemic bowel could be unremarkable by CT. Significant atherosclerotic calcifications of aorta and multiple visceral arteries with high-grade stenosis of the left common iliac artery and stenosis at the origin of the SMA and renal arteries are not excluded. 2. Bilateral pleural effusions and bibasilar consolidation or compressive collapse. 3. Dilated pancreatic duct and chronic calcifications related to chronic pancreatitis. Son Rivera MD Head CT 12/14/17 0000 Signed Impressions: Service Date/Time: November 06:08 - CONCLUSION: 1. No acute abnormality seen. 2. Mild atrophy. Chaim Lin MD Physical Exam HEENT: PERRL; normocephalic; atraumatic; no jaundice. CHEST: diminished CARDIAC: RRR ABDOMEN: Soft, mildly distended, diffuse TTP; no hepatosplenomegaly; bowel sounds are present in all four quadrants. EXTREMITIES: No clubbing, cyanosis, or edema. frail SKIN: Normal; no rash; no jaundice. PARI MUTUEL CLERK: No focal deficits; alert and oriented times three. (Paola Monae) Assessment and Plan Plan - Dilated cecum/ ileus/ loose stools- Ct on 12/17/17 showed cecum distended , filled with fluid and stools, possible ileus. Significant atherosclerotic calcifications of aorta and multiple visceral arteries with high grade stenosis of the left common iliac artery and stenosis at the origin of the SMA and renal arteries couldn't be excluded. Pleural effusions, dilated pancreatic duct and chronic calcifications related to chronic pancreatitis. KUB 12/18 no dilated loops small or large bowel. still wtih abd pain, fecal incontinence, loose stool. c diff still pending. will add other stool studies - Anemia- No bleeding reported, likely anemia of chronic dz. pt had GI w/u for this in 2-3 y ago in [place], per pt normal EGD/colonoscopy/capsule endoscopy - Respiratory distress. This was felt related to combination of pneumonia COPD exacerbation and underlying CHF. pt on MO now - Hx of pancreatitis- recent extensive work up for this on previous admission - Hx of CAD, COPD, DVT on Eliquis per [facility] Plan: - await c diff - additional stool studies - EGD and colonoscopy, timing TBD - Supportive care - Further recommendations to follow based on results above - Patient seen and examined by and myself and this note is written on his behalf. (Paola Monae) Physician Comments Seen and examined with [employer] SEWER, doing well , no bleeding. Leaning [facility] outpt. Will discuss with her primary Dr Holden tomorrow and let me know her final decision. (Ramos Dyson MD) Paola Monae Dec 19, 2017 12:45 Ramos Dyson MD Dec 19, 2017 18:24
[2017-12-19] MEDS: HYDROXYCHLOROQUINE SULFATE 200 MG TAB PO SCH (12:55)
[2017-12-19] MEDS ORDERED: POTASSIUM CHLORIDE 20 MEQ CONTROLLED RELEASE TAB PO ONE (14:15)
--- NOTE | 2017-12-19 17:39 | RADRPT ---
EXAM DATE/TIME: 12/19/2017 15:38 [place] COMPARISON: FOOT RIGHT COMPLETE ([id number]), September 06, 2017, 16:00. INDICATIONS : Painful plantar surface of right foot, entire foot is discolored and appears bruised MEDICAL HISTORY : Hypertension. Lupus. Cardiovascular disease. SURGICAL HISTORY : Coronary artery stent. right ankle surgery 2009 ENCOUNTER: Subsequent ACUITY: 2 days PAIN SCORE: 5/10 LOCATION: Right foot FINDINGS: Three view examination of the right foot demonstrates diffuse osseous demineralization with no obviou s fracture. Osseous and security medial malleolus. Marked degenerative deformation of the tibiotalar joint. CONCLUSION: 1. Diffuse osseous demineralization with no obvious acute fracture. 2. Osseous pins secure the medial malleolus. 3. Marked degenerative changes at the tibiotalar joint Ashish Lino MD on December 19, 2017 at 17:33 Board Certified Radiologist. This report was verified electronically.
[2017-12-19] MEDS: MIRTAZAPINE 15 MG TAB PO SCH (20:20)
[2017-12-19] MEDS: MORPHINE SULFATE 2 MG/ML INJ IV PRN (22:58)
[2017-12-20] VITALS (10 sets, daily range): BP systolic 121–192; BP diastolic 61–83; PULSE 59–87; RESP 17–22; TEMP 97.5–98.4; O2SAT 93–99
[2017-12-20] MEDS: RESP: ALBUTEROL 2.5 MG/IPRATROPIUM 0.5 MG NEB (SCH) NEB ×7 (00:15→23:49)
[2017-12-20] MEDS: PIPERACIL-TAZO 3.375 GM PREMIX 50 ML IV SCH (00:54)
[2017-12-20] MEDS: CHLORHEXIDINE GLUCONATE 2 % 1 PACK (2 CLOTHS) TOP SCH (03:48)
[2017-12-20] MEDS: metroNIDAZOLE 500 MG TAB PO SCH ×3 (04:24→21:26)
[2017-12-20] MEDS: hydrALAZINE HCL 20 MG/ML VIAL IV PUSH PRN (04:24)
[2017-12-20] MEDS: SODIUM CHLORIDE 0.9% FLUSH 10 ML FLUSH IV FLUSH PRN (04:26)
[2017-12-20 07:10] LABS: HEMATOCRIT 22.6 % (35.0-46.0); HEMOGLOBIN 7.6 GM/DL (11.6-15.3); MEAN CELL VOLUME 93.3 FL (80.0-100.0); MEAN CORPUSCULAR HEMOGLOBIN 31.2 PG (27.0-34.0); MEAN CORPUSCULAR HGB CONC 33.5 % (32.0-36.0); MEAN PLATELET VOLUME 7.1 FL (7.0-11.0); PLATELET COUNT 200 TH/MM3 (150-450); RED BLOOD COUNT 2.42 MIL/MM3 (4.00-5.30); RED CELL DISTRIBUTION WIDTH 14.1 % (11.6-17.2)
[2017-12-20 07:33] LABS: BICARBONATE 29.5 MEQ/L (21.0-32.0); CALCIUM 7.8 MG/DL (8.5-10.1); CREATININE 2.77 MG/DL (0.50-1.00)
[2017-12-20] MEDS: CHLORHEXIDINE 0.12% (ORAL KIT) 15 ML CUP MT SCH ×2 (08:00→20:00)
[2017-12-20] MEDS: AZITHROMYCIN INJ 500 MG in SODIUM CHLOR 0.9% 250 ML INJ 250 ML IV SCH (08:18)
[2017-12-20] MEDS: FERROUS SULFATE 325 MG (65 MG ELEMENTAL IRON) TAB PO SCH (08:26)
[2017-12-20] MEDS: SODIUM CHLORIDE 0.9% FLUSH 10 ML FLUSH IV FLUSH SCH ×2 (08:27→20:25)
[2017-12-20] MEDS: CLOPIDOGREL 75 MG TAB PO SCH (08:27)
[2017-12-20] MEDS: METOPROLOL TARTRATE 50 MG TAB PO SCH ×2 (08:27→15:29)
[2017-12-20] MEDS: HYDROXYCHLOROQUINE SULFATE 200 MG TAB PO SCH (08:27)
[2017-12-20] MEDS: SERTRALINE HCL 50 MG TAB PO SCH (08:27)
[2017-12-20] MEDS: FUROSEMIDE 20 MG/2 ML VIAL IV PUSH SCH (08:27)
[2017-12-20] MEDS: methylPREDNISolone SOD SUCC 40 MG/1 ML VIAL IV PUSH SCH (08:28)
[2017-12-20] MEDS: BUDESONIDE-FORMOTEROL 160/4.5 MCG INHALER INH SCH ×2 (08:31→20:31)
[2017-12-20] MEDS: FAMOTIDINE 20 MG/2 ML VIAL IV PUSH SCH ×2 (08:31→20:24)
--- NOTE | 2017-12-20 09:18 | HHI.PR ---
Subjective Remarks in no acute distress. denies pain. on oxygen via N/C. BP trend noted. d/w the RN. Objective Vitals Vital Signs Date Time Temp Pulse Resp B/P (MAP) Pulse Ox O2 Delivery O2 Flow Rate FiO2 12/20/17 04:24 61 178/75 (109) 12/20/17 04:00 Nasal Cannula 3.00 12/20/17 04:00 98.0 62 17 192/81 (118) 97 12/20/17 03:47 62 12/20/17 00:00 98.0 65 22 174/76 (108) 98 12/20/17 00:00 Nasal Cannula 3.00 12/19/17 23:47 62 12/19/17 20:00 Nasal Cannula 3.00 12/19/17 20:00 98.2 61 21 161/68 (99) 93 12/19/17 19:47 62 12/19/17 16:13 100 Nasal Cannula 4.00 12/19/17 16:00 98.1 74 18 174/76 (108) 91 12/19/17 12:00 100 3.00 12/19/17 12:00 99.3 65 18 144/65 (91) 100 I/O 12/19/17 12/19/17 12/19/17 12/20/17 12/20/17 12/20/17 07:00 15:00 23:00 07:00 15:00 23:00 Intake Total 120 ml 300 ml Output Total 1 ml 152 ml Balance 119 ml 148 ml Intake Oral 120 ml 300 ml Output Urine Total 1 ml 150 ml Stool Total 2 ml # Voids 1 0 # Bowel Movements 2 1 0 Result Diagram: 12/20/17 0620 12/20/17 0620 Imaging Last Impressions Foot X-Ray 12/19/17 1423 Signed Impressions: Service Date/Time: Tuesday, December 19, 2017 15:38 - CONCLUSION: 1. Diffuse osseous demineralization with no obvious acute fracture. 2. Osseous pins secure the medial malleolus. 3. Marked degenerative changes at the tibiotalar joint Ashish Lino MD Chest X-Ray 12/18/17 0600 Signed Impressions: Service Date/Time: Monday, December 18, 2017 03:08 - CONCLUSION: Persistent left lower lung consolidation and new small to moderate size left pleural effusion. Stable non-consolidative opacity lateral right. Angelito Rossi MD Abdomen X-Ray 12/18/17 0600 Signed Impressions: Service Date/Time: Monday, December 18, 2017 03:14 - CONCLUSION: No dilated loops of small or large bowel. Left lower lung consolidation. Angelito Rossi MD Abdomen/Pelvis CT 12/17/17 0000 Signed Impressions: Service Date/Time: Sunday, December 17, 2017 12:58 - CONCLUSION: 1. The cecum appears distended not present on the prior examination filled with fluid and stool of uncertain etiology could be due to ileus without signs of ischemic bowel for technique, however early ischemic bowel could be unremarkable by CT. Significant atherosclerotic calcifications of aorta and multiple visceral arteries with high-grade stenosis of the left common iliac artery and stenosis at the origin of the SMA and renal arteries are not excluded. 2. Bilateral pleural effusions and bibasilar consolidation or compressive collapse. 3. Dilated pancreatic duct and chronic calcifications related to chronic pancreatitis. Son Rivera MD Head CT 12/14/17 0000 Signed Impressions: Service Date/Time: November 06:08 - CONCLUSION: 1. No acute abnormality seen. 2. Mild atrophy. Chaim Lin MD Objective Remarks GENERAL: This is a well-nourished, well-developed patient, in no apparent distress. CARDIOVASCULAR: Regular rate and regular rhythm without murmurs, gallops, or rubs. RESPIRATORY: Clear to auscultation. Breath sounds equal bilaterally. No wheezes , rales, or rhonchi. GASTROINTESTINAL: Abdomen soft, non-tender, nondistended. Normal, active bowel sounds MUSCULOSKELETAL: Extremities without clubbing, cyanosis, or edema. NEURO: Alert & Oriented x4 to person, place, time, situation. Moves all ext x4 Procedures intubation. Medications and IVs Inpatient Medications Acetaminophen (Tylenol) 650 mg Q6H PRN PO HEADACHE OR TEMP > 101 F Last administered on 12/15/17at 23:57; Start 12/15/17 at 23:45 Albuterol Sulfate (Albuterol Neb) 2.5 mg Q4HR NEB PRN INH SHORTNESS OF BREATH; Start 12/14/17 at 07:15 Albuterol/ Ipratropium (Duoneb Neb) 1 ampule Q4HR NEB NEB Last administered on 12/20/17 07:46; Start 12/17/17 at 12:00 Amlodipine Besylate (Norvasc) 10 mg DAILY PO Last administered on 12/20/17 08: 27; Start 12/17/17 at 09:00 Azithromycin 500 mg/Sodium Chloride 250 ml @ 250 mls/hr Q24H IV Last administered on 12/20/17 08:18; Start 12/14/17 at 08:00 Budesonide/ Formoterol Fumarate (Symbicort 160-4.5 Mcg Inh) 2 puff Q12HR INH Last administered on 12/20/17 08:31; Start 12/16/17 at 21:00 Chlorhexidine Gluconate (Chlorhexidine 2% Cloth) 3 pack UNSCH PRN TOP HYGIENIC CARE; Start 12/14/17 at 07:15 Chlorhexidine Gluconate (Peridex 0.12% Liq) 15 ml BID@08,20 MT Last administered on 12/14/17at 20:00; Start 12/14/17 at 08:00 Clopidogrel Bisulfate (Plavix) 75 mg DAILY PO Last administered on 12/20/17 08 :27; Start 12/15/17 at 09:00 Famotidine (Pepcid Inj) 10 mg Q12HR IV PUSH Last administered on 12/20/17 08: 31; Start 12/16/17 at 21:00 Ferrous Sulfate (Ferrous Sulfate) 325 mg DAILY PO Last administered on 08:26; Start 12/15/17 at 09:00 Furosemide (Lasix Inj) 20 mg BID@09,18 IV PUSH Last administered on 12/20/17 08:27; Start 12/17/17 at 18:00 Heparin Sodium/ Dextrose 250 ml @ 7 mls/hr TITRATE PRN IV Coagulation Management Last administered on 12/18/17at 22:41; Start 12/14/17 at 15:45 Hydralazine HCl (Apresoline Inj) 20 mg Q4H PRN IV PUSH SBP > 160 MMHG Last administered on 12/20/17 04:24; Start 12/15/17 at 16:00 Hydroxychloroquine Sulfate (Plaquenil) 200 mg DAILY PO Last administered on 08:27; Start 12/15/17 at 09:00 Labetalol HCl (Trandate Inj) 20 mg Q4H PRN IV PUSH SYS BP GREATER THAN 160 MMHG Last administered on 12/18/17at 22:55; Start 12/14/17 at 13:15 Methylprednisolone Sodium Succinate (SoluMEDROL INJ) 40 mg Q12HR IV PUSH Last administered on 12/20/17 08:28; Start 12/16/17 at 21:00 Metoprolol Tartrate (Lopressor) 50 mg Q8H PO Last administered on 12/20/17at 08: 27; Start 12/16/17 at 16:00 Metronidazole (Flagyl) 500 mg Q8HR PO Last administered on 12/20/17at 04:24; Start 12/17/17 at 14:00 Mirtazapine (Remeron) 30 mg HS PO Last administered on 12/19/17at 20:20; Start 12/16/17 at 21:00 Miscellaneous Information 1 [id number] ; Start 12/14/17 at 07:15 Morphine Sulfate (Morphine Inj) 2 mg Q4H PRN IV PAIN 1-10 Last administered on 12/19/17at 22:58; Start 12/17/17 at 16:30 Nitroglycerin (Nitroglycerin 2% Oint) 1 inch ONCE ONCE TOPICAL Last administered on 12/14/17at 06:05; Start 12/14/17 at 05:45; Stop 12/14/17 at 05:46 ; Status DC Nitroglycerin/ Dextrose 250 ml @ 0 mls/hr TITRATE ONCE IV Last administered on 12/14/17at 07:03; Start 12/14/17 at 06:45; Stop 12/14/17 at 06:46; Status DC Ondansetron HCl (Zofran Inj) 4 mg Q4H PRN IV PUSH NAUSEA; Start 12/17/17 at 15: 00 Piperacillin Sod/ Tazobactam Sod 50 ml @ 100 mls/hr Q8H IV Last administered on 12/20/17at 00:54; Start 12/14/17 at 09:00 Potassium Bicarb/ Potassium Chloride (K-Lyte Cl Eff) 25 meq DAILY NG Last administered on 12/19/17at 10:26; Start 12/17/17 at 14:45 Potassium Chloride (KCl) 20 meq ONCE ONCE PO Last administered on 1/23/18at 17 :11; Start 12/19/17 at 14:15; Stop 12/19/17 at 14:16; Status DC Propofol 100 ml @ 0 mls/hr TITRATE PRN IV SEDATION Last administered on at 06:45; Start 12/14/17 at 05:45; Stop 12/17/17 at 11:26; Status DC Sertraline HCl (Zoloft) 50 mg DAILY PO Last administered on 12/20/17at 08:27; Start 12/17/17 at 09:00 Sodium Bicarbonate 150 meq/Sterile Water 1,000 ml @ 100 mls/hr Q10H IV Last administered on 12/18/17at 08:12; Start 12/17/17 at 13:00; Stop 12/18/17 at 10:11 ; Status DC Sodium Bicarbonate (Sodium Bicarbonate 8.4% Inj) 100 meq ONCE ONCE IV PUSH Last administered on 12/17/17at 11:36; Start 12/17/17 at 11:30; Stop 12/17/17 at 11:31; Status DC Sodium Chloride 1,000 ml @ 75 mls/hr [id number] IV Last administered on at 06:46; Start 12/14/17 at 15:00; Stop 12/17/17 at 11:26; Status DC Sodium Chloride (NS Flush) 2 ml BID IV FLUSH Last administered on 12/20/17at 08: 27; Start 12/14/17 at 09:00 A/P Problem List: (1) Acute hypoxemic respiratory failure ICD Code: J96.01 - Acute respiratory failure with hypoxia Status: Acute (2) Sepsis ICD Code: A41.9 - Sepsis, unspecified organism (3) COPD with acute exacerbation ICD Code: J44.1 - Chronic obstructive pulmonary disease with (acute) exacerbation (4) Pneumonia ICD Code: J18.9 - Pneumonia, unspecified organism Status: Acute (5) CHF exacerbation ICD Code: I50.9 - Heart failure, unspecified Status: Acute (6) Pulmonary hypertension due to COPD ICD Code: I27.23 - Pulmonary hypertension due to lung diseases and hypoxia; J44.9 - Chronic obstructive pulmonary disease, unspecified (7) PAD (peripheral artery disease) ICD Code: I73.9 - Peripheral vascular disease, unspecified Status: Chronic (8) COPD (chronic obstructive pulmonary disease) ICD Code: J44.9 - Chronic obstructive pulmonary disease, unspecified Status: Chronic (9) Chronic anticoagulation ICD Code: Z79.01 - bed bug exterminator (current) use of anticoagulants (10) Anemia ICD Code: D64.9 - Anemia, unspecified Status: Acute (11) HTN (hypertension) ICD Code: I10 - Essential (primary) hypertension Status: Chronic (12) Hx of deep venous thrombosis ICD Code: Z86.718 - Personal history of other venous thrombosis and embolism Status: Chronic (13) CAD (coronary artery disease) ICD Code: I25.10 - Atherosclerotic heart disease of [place] coronary artery without angina pectoris Status: Chronic (14) Rheumatoid arthritis ICD Code: M06.9 - Rheumatoid arthritis, unspecified Status: Chronic (15) CKD (chronic kidney disease) stage 3, GFR 30-59 ml/min ICD Code: N18.3 - Chronic kidney disease, stage 3 (moderate) Status: Chronic Assessment and Plan A/P History depression CT brain -no acute intracranial findings Resumed Sertraline and mirtazapine Pulmonary edema/ fluid overload Coronary artery disease status post stent RCA 05/13 Dr. Moody Hypothermia-resolved Peripheral arterial disease status post lower extremity stenting Hypertension Dyslipidemia Pulmonary hypertension hold IV Lasix today. Continue home medications Plavix and IV Heparin- eliquis on hold for now due to GI bleed. Prev Echocardiogram 09/12 revealed EF around 55%. No regional wall motion abnormality. Normal systolic and diastolic function Metoprolol to 50 q8h and Norvasc to 10 mg daily, holding lisinopril one dose of procardia today continue to monitor BP and adjust the regimen as needed. Acute hypoxic respiratory failure-resolved Acute COPD exacerbation Probable pneumonia 50 year tobacco history Albuterol/ipratropium aerosols every 4 hours with albuterol aerosols every 2 hours. IV Solu-Medrol ; change to 20 mg IV every 12 deescalate the antibiotic regimen; start on po levaquin with renal dosing per pharmacy Symbicort every 12 walk test today. Cecal dilatation GI bleed History of Cholelithiasis, Pancreatitis continue Pepcid monitor H/H GI following; patient agreed with GI w/u; d/w ; plan for EGD/ colonoscopy tomorrow. History of RA Lupus? Hydroxychloroquine 200 mg daily for her underlying rheumatologic disorder SSI Acute on chronic kidney injury hypernatremia hypokalemia History of nephrolithiasis hold lasix for now. monitor the electrolytes and replace as needed. Monitor urine output Accurate I's and O's Avoid nephrotoxic drugs Normocytic anemia Chronic anticoagulation with Eliquis History of DVTs bilateral lower extremities Continue clopidogrel/hold Eliquis due to renal failure/GI bleed Continue IV Heparin Severe Sepsis-improved Pneumonia Continue antibiotics. F/U C. difficile Flagyl by mouth Lower extremity ankle and thigh wound ulcers/chronic DVT prophylaxis; on IV Heaprin Discharge Planning dc planning; home with C- within the next couple of days- if remains stable- pending GI work-up. needs walk test before discharge. case management for C. Problem Qualifiers (1) Pneumonia: (2) CHF exacerbation: Qualified Codes: I50.9 - Heart failure, unspecified (3) COPD (chronic obstructive pulmonary disease): (4) Anemia: (5) CAD (coronary artery disease): Christy Jacinto MD Dec 20, 2017 09:18
[2017-12-20] MEDS ORDERED: POTASSIUM CHLORIDE 10 MEQ CONTROLLED RELEASE TAB PO ONE (10:00)
[2017-12-20] MEDS: LEVOFLOXACIN 500 MG TAB PO SCH (10:31)
[2017-12-20] MEDS ORDERED: NIFEdipine 30 MG SUSTAINED RELEASE TAB PO ONE (11:00)
--- NOTE | 2017-12-20 13:43 | HHI.GIFU ---
Subjective Remarks Pt resting in bed. says she "spit up" blood clot and dark material, unclear if this is GI in origin. Still with fecal incontinence and black loose stool. Agreeable to proceed with endoscopy tomorrow. (Paola Monae) Objective Vitals I&O Vital Signs Date Time Temp Pulse Resp B/P (MAP) Pulse Ox O2 Delivery O2 Flow Rate FiO2 12/20/17 12:00 98 Nasal Cannula 2.00 12/20/17 12:00 97.5 59 18 139/65 (89) 99 12/20/17 12:00 61 12/20/17 11:53 Nasal Cannula 2.00 12/20/17 10:17 Nasal Cannula 2.00 12/20/17 08:00 98 3.00 12/20/17 08:00 98.2 66 18 178/76 (110) 98 12/20/17 07:43 59 12/20/17 04:24 61 178/75 (109) 12/20/17 04:00 Nasal Cannula 3.00 12/20/17 04:00 98.0 62 17 192/81 (118) 97 12/20/17 03:47 62 12/20/17 00:00 98.0 65 22 174/76 (108) 98 12/20/17 00:00 Nasal Cannula 3.00 12/19/17 23:47 62 12/19/17 20:00 Nasal Cannula 3.00 12/19/17 20:00 98.2 61 21 161/68 (99) 93 12/19/17 19:47 62 12/19/17 16:13 100 Nasal Cannula 4.00 12/19/17 16:00 98.1 74 18 174/76 (108) 91 I/O 12/19/17 12/19/17 12/19/17 12/20/17 12/20/17 12/20/17 07:00 15:00 23:00 07:00 15:00 23:00 Intake Total 120 ml 300 ml 250 ml Output Total 1 ml 152 ml Balance 119 ml 148 ml 250 ml Intake Oral 120 ml 300 ml IV Total 250 ml Output Urine Total 1 ml 150 ml Stool Total 2 ml # Voids 1 0 # Bowel Movements 2 1 0 Laboratory Laboratory Tests Test 12/20/17 06:20 White Blood Count 9.0 Red Blood Count 2.42 Hemoglobin 7.6 Hematocrit 22.6 Mean Corpuscular Volume 93.3 Mean Corpuscular Hemoglobin 31.2 Mean Corpuscular Hemoglobin Concent 33.5 Red Cell Distribution Width 14.1 Platelet Count 200 Mean Platelet Volume 7.1 Activated Partial Thromboplast Time 59.7 Blood Urea Nitrogen 62 Creatinine 2.77 Random Glucose 127 Calcium Level 7.8 Sodium Level 146 Potassium Level 3.0 Chloride Level 106 Carbon Dioxide Level 29.5 Anion Gap 11 Estimat Glomerular Filtration Rate 17 Date/Time Source Procedure Growth Status 12/14/17 05:46 Blood Peripheral Aerobic Blood Culture - Final NO GROWTH IN 5 DAYS Complete 12/14/17 05:46 Blood Peripheral Anaerobic Blood Culture - Final NO GROWTH IN 5 DAYS Complete 12/17/17 18:23 Stool Stool Stool Occult Blood (DAJA) - Final HEMOCCULT POSITIVE Complete 12/14/17 09:00 Sputum Endotracheal Gram Stain - Final Complete 12/14/17 09:00 Sputum Endotracheal Sputum Culture - Final HEAVY GROWTH NORMAL RESPIRATORY KIMBERLY Complete Imaging Last Impressions Foot X-Ray 12/19/17 1423 Signed Impressions: Service Date/Time: Tuesday, December 19, 2017 15:38 - CONCLUSION: 1. Diffuse osseous demineralization with no obvious acute fracture. 2. Osseous pins secure the medial malleolus. 3. Marked degenerative changes at the tibiotalar joint Ashish Lino MD Chest X-Ray 12/18/17 0600 Signed Impressions: Service Date/Time: Monday, December 18, 2017 03:08 - CONCLUSION: Persistent left lower lung consolidation and new small to moderate size left pleural effusion. Stable non-consolidative opacity lateral right. Angelito Rossi MD Abdomen X-Ray 12/18/17 0600 Signed Impressions: Service Date/Time: Monday, December 18, 2017 03:14 - CONCLUSION: No dilated loops of small or large bowel. Left lower lung consolidation. Angelito Rossi MD Abdomen/Pelvis CT 12/17/17 0000 Signed Impressions: Service Date/Time: Sunday, December 17, 2017 12:58 - CONCLUSION: 1. The cecum appears distended not present on the prior examination filled with fluid and stool of uncertain etiology could be due to ileus without signs of ischemic bowel for technique, however early ischemic bowel could be unremarkable by CT. Significant atherosclerotic calcifications of aorta and multiple visceral arteries with high-grade stenosis of the left common iliac artery and stenosis at the origin of the SMA and renal arteries are not excluded. 2. Bilateral pleural effusions and bibasilar consolidation or compressive collapse. 3. Dilated pancreatic duct and chronic calcifications related to chronic pancreatitis. Son Rivera MD Head CT 12/14/17 0000 Signed Impressions: Service Date/Time: November 06:08 - CONCLUSION: 1. No acute abnormality seen. 2. Mild atrophy. Chaim Lin MD Physical Exam HEENT: PERRL; normocephalic; atraumatic; no jaundice. CHEST: diminished CARDIAC: RRR ABDOMEN: Soft, mildly distended, diffuse TTP; no hepatosplenomegaly; bowel sounds are present in all four quadrants. EXTREMITIES: No clubbing, cyanosis, or edema. frail SKIN: Normal; no rash; no jaundice. SCHOOL COUNSELLOR: No focal deficits; alert and oriented times three. (Paola Monae END TRIMMER) Assessment and Plan Plan - Dilated cecum/ ileus/ loose stools- Ct on 12/17/17 showed cecum distended , filled with fluid and stools, possible ileus. Significant atherosclerotic calcifications of aorta and multiple visceral arteries with high grade stenosis of the left common iliac artery and stenosis at the origin of the SMA and renal arteries couldn't be excluded. Pleural effusions, dilated pancreatic duct and chronic calcifications related to chronic pancreatitis. KUB 12/18 no dilated loops small or large bowel. still with fecal incontinence, black loose stool. per pt stool sample finally obtained, will await c diff and stool studies. - Anemia- No bleeding reported, likely anemia of chronic dz. pt had GI w/u for this in 2-3 y ago in [place], per pt normal EGD/colonoscopy/capsule endoscopy - Respiratory distress. This was felt related to combination of pneumonia COPD exacerbation and underlying CHF. pt on NC now - Hx of pancreatitis- recent extensive work up for this on previous admission - Hx of CAD, COPD, DVT on Eliquis per [facility] Plan: - EGD colonoscopy in am - hold heparin 2h prior to procedure - hold eliquis - obtain consent - clear liquids today - NPO after MN - GoLytely - await c diff - additional stool studies - Supportive care - Further recommendations to follow based on results above - Patient seen and examined by and myself and this note is written on his behalf. (Paola Monae) Physician Comments Seen and examined with ELLY, ? melena, agreeable to [facility] now. Monitor labs. Transfuse as needed. EGD/Colonoscopy tomorrow by Dr. swartz. (Ramos Dyson MD) Paola Monae Dec 20, 2017 13:43 Ramos Dyson MD Dec 20, 2017 14:01
[2017-12-20] MEDS ORDERED: POTASSIUM CHLORIDE 20 MEQ CONTROLLED RELEASE TAB PO ONE (14:00)
[2017-12-20] MEDS ORDERED: METOPROLOL TARTRATE 25 MG TAB PO PRN (15:00)
[2017-12-20] MEDS ORDERED: SODIUM CHLORID 0.9% 500 ML IV PRN (15:00)
[2017-12-20] MEDS ORDERED: CHLORHEXIDINE GLUCONATE 2 % 1 PACK (2 CLOTHS) TOPICAL PRN (15:00)
[2017-12-20] MEDS ORDERED: LACTATED RINGER'S 1000 ML IV PRN (15:00)
[2017-12-20] MEDS ORDERED: POVIDONE IODINE 5% (ANTISEPSIS KIT) 4 APPLICATIONS EACH NARE PRN (15:00)
[2017-12-20] MEDS: HEPARIN 25,000 UNITS-D5W 250 ML - PREMIX IV PRN (15:39)
[2017-12-20] MEDS ORDERED: PEG (High)/E-LYTE SOLN 4000 ML BTL PO ONE (16:00)
[2017-12-20] MEDS ORDERED: POLYETHYLENE GLYCOL POWDER 255 GM BTL PO ONE (17:30)
[2017-12-20] MEDS ORDERED: POLYETHYLENE GLYCOL 17 GM PKG PO ONE (18:45)
[2017-12-20] MEDS: MIRTAZAPINE 15 MG TAB PO SCH (20:25)
[2017-12-20] MEDS ORDERED: methylPREDNISolone SOD SUCC 40 MG/1 ML VIAL IV PUSH SCH (21:00)
[2017-12-20] MEDS ORDERED: SODIUM CHLORID 0.9% 500 ML INJ 500 ML IV ONE (23:00)
[2017-12-21] VITALS (9 sets, daily range): BP systolic 124–171; BP diastolic 61–78; PULSE 40–73; RESP 18–21; TEMP 97.1–98.7; O2SAT 94–97
[2017-12-21] MEDS: METOPROLOL TARTRATE 50 MG TAB PO SCH ×3 (01:30→15:35)
[2017-12-21] MEDS: CHLORHEXIDINE GLUCONATE 2 % 1 PACK (2 CLOTHS) TOP SCH (03:19)
[2017-12-21] MEDS: RESP: ALBUTEROL 2.5 MG/IPRATROPIUM 0.5 MG NEB (SCH) NEB ×2 (03:44→08:55)
[2017-12-21] MEDS: hydrALAZINE HCL 20 MG/ML VIAL IV PUSH PRN (04:46)
[2017-12-21] MEDS: metroNIDAZOLE 500 MG TAB PO SCH ×3 (05:18→22:30)
[2017-12-21 07:07] LABS: HEMATOCRIT 24.2 % (35.0-46.0); HEMOGLOBIN 8.2 GM/DL (11.6-15.3)
[2017-12-21 07:37] LABS: BICARBONATE 26.6 MEQ/L (21.0-32.0); CALCIUM 7.9 MG/DL (8.5-10.1); CREATININE 3.14 MG/DL (0.50-1.00)
[2017-12-21] MEDS: CHLORHEXIDINE 0.12% (ORAL KIT) 15 ML CUP MT SCH ×2 (08:00→20:00)
--- NOTE | 2017-12-21 08:54 | HHI.PR ---
Subjective Remarks in no acute distress. sob improving. still on oxygen via [place]. denies pain. Objective Vitals Vital Signs Date Time Temp Pulse Resp B/P (MAP) Pulse Ox O2 Delivery O2 Flow Rate FiO2 12/21/17 08:30 98.2 71 18 124/61 (82) 97 12/21/17 06:00 98.0 73 19 160/78 (105) 96 12/21/17 04:00 Nasal Cannula 2.00 12/21/17 04:00 68 12/21/17 00:00 Nasal Cannula 2.00 12/21/17 00:00 97.1 64 19 139/69 (92) 94 12/21/17 00:00 70 12/20/17 20:30 Nasal Cannula 2.00 12/20/17 20:06 2.00 12/20/17 20:06 95 Nasal Cannula 2.00 12/20/17 20:00 67 12/20/17 20:00 97.8 67 19 150/67 (94) 93 12/20/17 16:00 98.2 66 18 143/61 (88) 98 12/20/17 16:00 70 12/20/17 12:00 98 Nasal Cannula 2.00 12/20/17 12:00 97.5 59 18 139/65 (89) 99 12/20/17 12:00 61 12/20/17 11:53 Nasal Cannula 2.00 12/20/17 10:17 Nasal Cannula 2.00 I/O 12/20/17 12/20/17 12/20/17 12/21/17 12/21/17 12/21/17 07:00 15:00 23:00 07:00 15:00 23:00 Intake Total 250 ml 1220 ml 654 ml Output Total 300 ml Balance 250 ml 920 ml 654 ml Intake Oral 1220 ml 400 ml IV Total 250 ml 254 ml Output Urine Total 300 ml # Voids 0 2 2 # Bowel Movements 0 4 1 Result Diagram: 12/21/1762112/21/17621 Imaging Last Impressions Foot X-Ray 12/19/17 1423 Signed Impressions: Service Date/Time: Tuesday, December 19, 2017 15:38 - CONCLUSION: 1. Diffuse osseous demineralization with no obvious acute fracture. 2. Osseous pins secure the medial malleolus. 3. Marked degenerative changes at the tibiotalar joint Ashish Lino MD Chest X-Ray 12/18/17 0600 Signed Impressions: Service Date/Time: Monday, December 18, 2017 03:08 - CONCLUSION: Persistent left lower lung consolidation and new small to moderate size left pleural effusion. Stable non-consolidative opacity lateral right. Angelito Rossi MD Abdomen X-Ray 12/18/17 0600 Signed Impressions: Service Date/Time: Monday, December 18, 2017 03:14 - CONCLUSION: No dilated loops of small or large bowel. Left lower lung consolidation. Angelito Rossi MD Abdomen/Pelvis CT 12/17/17 0000 Signed Impressions: Service Date/Time: Sunday, December 17, 2017 12:58 - CONCLUSION: 1. The cecum appears distended not present on the prior examination filled with fluid and stool of uncertain etiology could be due to ileus without signs of ischemic bowel for technique, however early ischemic bowel could be unremarkable by CT. Significant atherosclerotic calcifications of aorta and multiple visceral arteries with high-grade stenosis of the left common iliac artery and stenosis at the origin of the SMA and renal arteries are not excluded. 2. Bilateral pleural effusions and bibasilar consolidation or compressive collapse. 3. Dilated pancreatic duct and chronic calcifications related to chronic pancreatitis. Son Rivera MD Head CT 12/14/17 0000 Signed Impressions: Service Date/Time: November 06:08 - CONCLUSION: 1. No acute abnormality seen. 2. Mild atrophy. Chaim Lin MD Objective Remarks GENERAL: This is a well-nourished, well-developed patient, in no apparent distress. CARDIOVASCULAR: Regular rate and regular rhythm without murmurs, gallops, or rubs. RESPIRATORY: Clear to auscultation. Breath sounds equal bilaterally. No wheezes , rales, or rhonchi. GASTROINTESTINAL: Abdomen soft, non-tender, nondistended. Normal, active bowel sounds MUSCULOSKELETAL: Extremities without clubbing, cyanosis, or edema. NEURO: Alert & Oriented x4 to person, place, time, situation. Moves all ext x4 Procedures intubation. Medications and IVs Inpatient Medications Acetaminophen (Tylenol) 650 mg Q6H PRN PO HEADACHE OR TEMP > 101 F Last administered on 12/15/17at 23:57; Start 12/15/17 at 23:45 Albuterol Sulfate (Albuterol Neb) 2.5 mg Q4HR NEB PRN INH SHORTNESS OF BREATH; Start 12/14/17 at 07:15 Albuterol/ Ipratropium (Duoneb Neb) 1 ampule Q4HR NEB NEB Last administered on 12/20/17at 20:00; Start 12/17/17 at 12:00 Amlodipine Besylate (Norvasc) 10 mg DAILY PO Last administered on 12/20/17 08: 27; Start 12/17/17 at 09:00 Azithromycin 500 mg/Sodium Chloride 250 ml @ 250 mls/hr Q24H IV Last administered on 12/20/17 08:18; Start 12/14/17 at 08:00; Stop 12/20/17 at 09:13 ; Status DC Budesonide/ Formoterol Fumarate (Symbicort 160-4.5 Mcg Inh) 2 puff Q12HR INH Last administered on 12/20/17at 20:31; Start 12/16/17 at 21:00 Chlorhexidine Gluconate (Chlorhexidine 2% Cloth) 3 pack VP PRODUCTION PRN TOPICAL SEE LABEL COMMENTS; Start 12/20/17 at 15:00; Stop 12/23/17 at 14:59 Chlorhexidine Gluconate (Peridex 0.12% Liq) 15 ml BID@08,20 MT Last administered on 12/14/17at 20:00; Start 12/14/17 at 08:00 Clopidogrel Bisulfate (Plavix) 75 mg DAILY PO Last administered on 12/20/17at 08 :27; Start 12/15/17 at 09:00 Famotidine (Pepcid Inj) 10 mg Q12HR IV PUSH Last administered on 12/20/17 20: 24; Start 12/16/17 at 21:00 Ferrous Sulfate (Ferrous Sulfate) 325 mg DAILY PO Last administered on 08:26; Start 12/15/17 at 09:00 Furosemide (Lasix Inj) 20 mg BID@09,18 IV PUSH Last administered on 12/20/17at 08:27; Start 12/17/17 at 18:00; Status Future Hold Heparin Sodium/ Dextrose 250 ml @ 7 mls/hr TITRATE PRN IV Coagulation Management Last administered on 12/20/17at 15:39; Start 12/14/17 at 15:45 Hydralazine HCl (Apresoline Inj) 20 mg Q4H PRN IV PUSH SBP > 160 MMHG Last administered on 12/21/17at 04:46; Start 12/15/17 at 16:00 Hydroxychloroquine Sulfate (Plaquenil) 200 mg DAILY PO Last administered on at 08:27; Start 12/15/17 at 09:00 Labetalol HCl (Trandate Inj) 20 mg Q4H PRN IV PUSH SYS BP GREATER THAN 160 MMHG Last administered on 12/18/17at 22:55; Start 12/14/17 at 13:15 Lactated Ringer's 1,000 ml @ 30 mls/hr Q24H PRN IV SEE LABEL COMMENTS; Start at 15:00; Stop 12/23/17 at 14:59 Levofloxacin (Levaquin) 250 mg Q48H PO ; Start 12/22/17 at 11:00 Methylprednisolone Sodium Succinate (SoluMEDROL INJ) 20 mg Q12HR IV PUSH Last administered on 12/20/17at 20:24; Start 12/20/17 at 21:00 Metoprolol Tartrate (Lopressor) 25 mg VP PRODUCTION PRN PO SEE LABEL COMMENTS; Start 12/20/17 at 15:00; Stop 12/23/17 at 14:59 Metronidazole (Flagyl) 500 mg Q8HR PO Last administered on 12/21/17at 05:18; Start 12/17/17 at 14:00 Mirtazapine (Remeron) 30 mg HS PO Last administered on 12/20/17at 20:25; Start 12/16/17 at 21:00 Miscellaneous Information 1 [id number] ; Start 12/14/17 at 07:15 Morphine Sulfate (Morphine Inj) 2 mg Q4H PRN IV PAIN 1-10 Last administered on 12/19/17at 22:58; Start 12/17/17 at 16:30 Nifedipine (Procardia Xl) 30 mg ONCE ONCE PO Last administered on 12/20/17at 10 :30; Start 12/20/17 at 11:00; Stop 12/20/17 at 11:01; Status DC Nitroglycerin (Nitroglycerin 2% Oint) 1 inch ONCE ONCE TOPICAL Last administered on 12/14/17at 06:05; Start 12/14/17 at 05:45; Stop 12/14/17 at 05:46 ; Status DC Nitroglycerin/ Dextrose 250 ml @ 0 mls/hr TITRATE ONCE IV Last administered on 12/14/17at 07:03; Start 12/14/17 at 06:45; Stop 12/14/17 at 06:46; Status DC Ondansetron HCl (Zofran Inj) 4 mg Q4H PRN IV PUSH NAUSEA Last administered on at 20:24; Start 12/17/17 at 15:00 Piperacillin Sod/ Tazobactam Sod 50 ml @ 100 mls/hr Q8H IV Last administered on 12/20/17at 00:54; Start 12/14/17 at 09:00; Stop 12/20/17 at 09:13; Status DC Polyethylene Glycol (Miralax) 255 gm ONCE ONCE PO Last administered on at 19:32; Start 12/20/17 at 18:45; Stop 12/20/17 at 18:46; Status DC Polyethylene Glycol/ Electrolytes (Colyte Liq) 4,000 ml ONCE ONCE PO Last administered on 12/20/17at 15:29; Start 12/20/17 at 16:00; Stop 12/20/17 at 17:28 ; Status DC Potassium Bicarb/ Potassium Chloride (K-Lyte Cl Eff) 25 meq DAILY NG Last administered on 12/19/17at 10:26; Start 12/17/17 at 14:45; Stop 12/20/17 at 09:13 ; Status DC Potassium Chloride (KCl) 20 meq ONCE ONCE PO Last administered on 12/20/17at 13 :30; Start 12/20/17 at 14:00; Stop 12/20/17 at 14:01; Status DC Povidone Iodine (Betadine 5% Antisepsis Kit) 1 applic VP PRODUCTION PRN EACH NARE SEE LABEL COMMENTS; Start 12/20/17 at 15:00; Stop 12/23/17 at 14:59 Propofol 100 ml @ 0 mls/hr TITRATE PRN IV SEDATION Last administered on at 06:45; Start 12/14/17 at 05:45; Stop 12/17/17 at 11:26; Status DC Sertraline HCl (Zoloft) 50 mg DAILY PO Last administered on 12/20/17at 08:27; Start 12/17/17 at 09:00 Sodium Bicarbonate 150 meq/Sterile Water 1,000 ml @ 100 mls/hr Q10H IV Last administered on 12/18/17at 08:12; Start 12/17/17 at 13:00; Stop 12/18/17 at 10:11 ; Status DC Sodium Bicarbonate (Sodium Bicarbonate 8.4% Inj) 100 meq ONCE ONCE IV PUSH Last administered on 12/17/17at 11:36; Start 12/17/17 at 11:30; Stop 12/17/17 at 11:31; Status DC Sodium Chloride 500 ml @ 30 mls/hr [id number] PRN IV SEE LABEL COMMENTS; Start at 15:00; Stop 12/23/17 at 14:59 Sodium Chloride (NS Flush) 2 ml BID IV FLUSH Last administered on 12/20/17at 20: 25; Start 12/14/17 at 09:00 A/P Problem List: (1) Acute hypoxemic respiratory failure ICD Code: J96.01 - Acute respiratory failure with hypoxia Status: Acute (2) Sepsis ICD Code: A41.9 - Sepsis, unspecified organism (3) COPD with acute exacerbation ICD Code: J44.1 - Chronic obstructive pulmonary disease with (acute) exacerbation (4) Pneumonia ICD Code: J18.9 - Pneumonia, unspecified organism Status: Acute (5) CHF exacerbation ICD Code: I50.9 - Heart failure, unspecified Status: Acute (6) Pulmonary hypertension due to COPD ICD Code: I27.23 - Pulmonary hypertension due to lung diseases and hypoxia; J44.9 - Chronic obstructive pulmonary disease, unspecified (7) PAD (peripheral artery disease) ICD Code: I73.9 - Peripheral vascular disease, unspecified Status: Chronic (8) COPD (chronic obstructive pulmonary disease) ICD Code: J44.9 - Chronic obstructive pulmonary disease, unspecified Status: Chronic (9) Chronic anticoagulation ICD Code: Z79.01 - custodial (current) use of anticoagulants (10) Anemia ICD Code: D64.9 - Anemia, unspecified Status: Acute (11) HTN (hypertension) ICD Code: I10 - Essential (primary) hypertension Status: Chronic (12) Hx of deep venous thrombosis ICD Code: Z86.718 - Personal history of other venous thrombosis and embolism Status: Chronic (13) CAD (coronary artery disease) ICD Code: I25.10 - Atherosclerotic heart disease of [place] coronary artery without angina pectoris Status: Chronic (14) Rheumatoid arthritis ICD Code: M06.9 - Rheumatoid arthritis, unspecified Status: Chronic (15) CKD (chronic kidney disease) stage 3, GFR 30-59 ml/min ICD Code: N18.3 - Chronic kidney disease, stage 3 (moderate) Status: Chronic Assessment and Plan A/P History depression CT brain -no acute intracranial findings Resumed Sertraline and mirtazapine Pulmonary edema/ fluid overload- has resolved. Coronary artery disease status post stent RCA 05/13 Dr. Moody Hypothermia-resolved Peripheral arterial disease status post lower extremity stenting Hypertension Dyslipidemia Pulmonary hypertension continue to hold IV Lasix today. Continue home medications Plavix and IV Heparin- eliquis on hold for now due to GI bleed. Prev Echocardiogram 09/12 revealed EF around 55%. No regional wall motion abnormality. Normal systolic and diastolic function Metoprolol to 50 q8h and Norvasc to 10 mg daily, holding lisinopril one dose of procardia today continue to monitor BP and adjust the regimen as needed. Acute hypoxic respiratory failure-resolved Acute COPD exacerbation Probable pneumonia 50 year tobacco history Albuterol/ipratropium aerosols every 4 hours with albuterol aerosols every 2 hours. IV Solu-Medrol will switch to prednisone today. deescalate the antibiotic regimen; started on po levaquin with renal dosing per pharmacy Symbicort every 12 failed walk test ; case management for home oxygen. Cecal dilatation GI bleed History of Cholelithiasis, Pancreatitis continue Pepcid monitor H/H GI following; plan for EGD/colonoscopy today. History of RA Lupus? Hydroxychloroquine 200 mg daily for her underlying rheumatologic disorder SSI Acute on chronic kidney injury hypernatremia hypokalemia History of nephrolithiasis renal function is worse today. hold lasix for now. continue gentle IV hydration. consult nephrology. monitor the electrolytes and replace as needed. Monitor urine output Accurate I's and O's Avoid nephrotoxic drugs Normocytic anemia Chronic anticoagulation with Eliquis History of DVTs bilateral lower extremities Continue clopidogrel/hold Eliquis due to renal failure/GI bleed Continue IV Heparin Severe Sepsis-improved Pneumonia Continue antibiotics. F/U C. difficile Flagyl by mouth Lower extremity ankle and thigh wound ulcers/chronic DVT prophylaxis; on IV Heaprin Discharge Planning dc planning; home with C- needs home oxygen. nephrology consulted today due to worsening renal function. not ready for discharge yet. Problem Qualifiers (1) Pneumonia: (2) CHF exacerbation: Qualified Codes: I50.9 - Heart failure, unspecified (3) COPD (chronic obstructive pulmonary disease): (4) Anemia: (5) CAD (coronary artery disease): Christy Jacinto MD Dec 21, 2017 08:54
[2017-12-21] MEDS ORDERED: OXYGEN NAS.CANULA (08:56)
--- NOTE | 2017-12-21 08:56 | HHI.FF ---
Face to Face Verification Diagnosis: (1) COPD (chronic obstructive pulmonary disease) Physical Therapy Order: Evaluate and Treat Home Health Nursing Order: Medical education Signs/symptoms of disease process CHF education Oxygen administration education Medication education-adverse effect Nursing assessment with vital signs I have seen patient Precious Plaza on 12/21/17. My clinical findings support the need for the requested home health care services because: Ltd mobility - disease progression I certify that my clinical findings support that this patient is homebound because: Unsteady gait/balance Christy Jacinto MD Dec 21, 2017 08:56
[2017-12-21] MEDS: CLOPIDOGREL 75 MG TAB PO SCH (09:00)
[2017-12-21] MEDS: FAMOTIDINE 20 MG/2 ML VIAL IV PUSH SCH ×2 (09:05→22:30)
[2017-12-21] MEDS: FERROUS SULFATE 325 MG (65 MG ELEMENTAL IRON) TAB PO SCH (09:06)
[2017-12-21] MEDS: SERTRALINE HCL 50 MG TAB PO SCH (09:06)
[2017-12-21] MEDS: HYDROXYCHLOROQUINE SULFATE 200 MG TAB PO SCH (09:06)
[2017-12-21] MEDS: SODIUM CHLORIDE 0.9% FLUSH 10 ML FLUSH IV FLUSH SCH ×2 (09:08→22:34)
[2017-12-21] MEDS: BUDESONIDE-FORMOTEROL 160/4.5 MCG INHALER INH SCH ×2 (09:09→22:35)
[2017-12-21] MEDS ORDERED: POTASSIUM CHLORIDE 20 MEQ CONTROLLED RELEASE TAB PO ONE (09:45)
[2017-12-21] MEDS: predniSONE 20 MG TAB PO SCH (10:06)
[2017-12-21] MEDS: LEVOFLOXACIN 500 MG TAB PO SCH (12:00)
--- NOTE | 2017-12-21 13:25 | PQ ---
Physician Query Response Document PATIENT: MO YATES : 1945 ADMIT DATE: 12/14/2017 6:46 AM DISCH DATE: RESPONDING PROVIDER #: [email or web address] QUERY TEXT: CHF Acuity and Type Congestive Heart Failure is documented in the Medical Record. Please document the type and acuity (in cludes probable or suspected) Such as: Type: -- Systolic -- Diastolic -- Combined -- Other, please specify Acuity: -- Acute -- Chronic -- Acute on chronic -- Other, please specify Please Call [facility] @ ext [phone] for assistance The patient's Clinical Indicators include: Per H Per Progress Note 12/19 (5) CHF exacerbation ICD Code: I50.9 - Heart failure, unspecified Status: Acute Query created by: Светлана García on 12/20/2017 11:00 AM RESPONSE TEXT: Acute on chronic diastolic. Electronically signed by: Christy Jacinto MD 12/21/2017 1:21 PM
--- NOTE | 2017-12-21 14:34 | PD.PROCEDR ---
GI Procedure PROCEDURE PERFORMED Upper endoscopy with biopsy Colonoscopy with ablation of polyp, snare polypectomy INDICATION FOR PROCEDURE Heme-positive stool Anemia PROCEDURE: The procedure, risks and benefits were discussed with Ms. Plaza and informed consent was obtained. Anesthesia sedated her with Diprivan. She was placed in the left lateral decubitus position. EGD: The Pentax videoscope was introduced through the oropharynx and advanced to the second portion of the duodenum under direct visualization. Retroflexion was performed in the stomach. Biopsy from the antrum for gastritis FINDINGS: Mild gastritis biopsy was done Otherwise normal exam Colonoscopy: The Pentax videoscope was introduced through the rectum and advanced to cecum. Retroflexion was performed in the rectum. Colonic prep was good FINDINGS: 1 cm polyp in the transverse colon removed by snare Small polyp in the sigmoid and ablated with heat Small internal hemorrhoid Normal colonoscopy otherwise ESTIMATED BLOOD LOSS: None SPECIMENS REMOVED: colon polyp Mild gastritis biopsy from antrum COMPLICATIONS: None IMPRESSION: Mild gastritis mostly in the antrum biopsy was done 1 cm polyp in the transverse colon removed by snare Small polyp in the sigmoid and ablated with heat Small internal hemorrhoid Normal colonoscopy otherwise No sign of active bleeding or old blood Anemia could be related to general health and chronic disease PLAN: May feed patient Await biopsy results Follow-up H&H with packed RBC as needed Colonoscopy in 3 years Capsule endoscopy as an outpatient if there are signs of bleeding and anemia persist Terry Brenner MD Dec 21, 2017 14:34
--- NOTE | 2017-12-21 14:36 | HHI.GIFU ---
Subjective Remarks Patient is laying in bed comfortably, deny any significant pain, no complains, no sign of active bleeding, tolerated prep Objective Vitals I&O Vital Signs Date Time Temp Pulse Resp B/P (MAP) Pulse Ox O2 Delivery O2 Flow Rate FiO2 12/21/17 12:30 98.5 64 18 184/82 (116) 94 12/21/17 12:00 98.5 64 18 94 12/21/17 12:00 60 12/21/17 08:56 21 12/21/17 08:30 98.2 71 18 124/61 (82) 97 12/21/17 08:00 Nasal Cannula 2.00 12/21/17 08:00 61 12/21/17 06:00 98.0 73 19 160/78 (105) 96 12/21/17 04:00 Nasal Cannula 2.00 12/21/17 04:00 68 12/21/17 00:00 Nasal Cannula 2.00 12/21/17 00:00 97.1 64 19 139/69 (92) 94 12/21/17 00:00 70 12/20/17 20:30 Nasal Cannula 2.00 12/20/17 20:06 2.00 12/20/17 20:06 95 Nasal Cannula 2.00 12/20/17 20:00 67 12/20/17 20:00 97.8 67 19 150/67 (94) 93 12/20/17 16:00 98.2 66 18 143/61 (88) 98 12/20/17 16:00 70 I/O 12/20/17 12/20/17 12/20/17 12/21/17 12/21/17 12/21/17 07:00 15:00 23:00 07:00 15:00 23:00 Intake Total 250 ml 1220 ml 654 ml Output Total 300 ml Balance 250 ml 920 ml 654 ml Intake Oral 1220 ml 400 ml IV Total 250 ml 254 ml Output Urine Total 300 ml # Voids 0 2 2 # Bowel Movements 0 4 1 Laboratory Laboratory Tests Test 12/21/17 06:22 Hemoglobin 8.2 Hematocrit 24.2 Activated Partial Thromboplast Time 58.1 Blood Urea Nitrogen 63 Creatinine 3.14 Random Glucose 105 Calcium Level 7.9 Sodium Level 147 Potassium Level 3.3 Chloride Level 109 Carbon Dioxide Level 26.6 Anion Gap 11 Estimat Glomerular Filtration Rate 15 Date/Time Source Procedure Growth Status 12/14/17 05:46 Blood Peripheral Aerobic Blood Culture - Final NO GROWTH IN 5 DAYS Complete 12/14/17 05:46 Blood Peripheral Anaerobic Blood Culture - Final NO GROWTH IN 5 DAYS Complete 12/20/17 10:30 Stool Stool Cryptosporidium Exam - Final NEGATIVE - NO CRYPTOSPORIDIUM ANTIGEN... Complete 12/20/17 10:30 Stool Stool Giardia Antigen (DAJA) - Final NEGATIVE - NO GIARDIA ANTIGEN DETECTE... Complete 12/14/17 09:00 Sputum Endotracheal Gram Stain - Final Complete 12/14/17 09:00 Sputum Endotracheal Sputum Culture - Final HEAVY GROWTH NORMAL RESPIRATORY KIMBERLY Complete Physical Exam HEENT: PERRL; normocephalic; atraumatic; no jaundice. CHEST: diminished CARDIAC: RRR ABDOMEN: Soft, mildly distended, diffuse TTP; no hepatosplenomegaly; bowel sounds are present in all four quadrants. EXTREMITIES: No clubbing, cyanosis, or edema. frail SKIN: Normal; no rash; no jaundice. LEGAL DIRECTOR: No focal deficits; alert and oriented times three. Assessment and Plan Plan - Dilated cecum/ ileus/ loose stools- Ct on 12/17/17 showed cecum distended , filled with fluid and stools, possible ileus. Significant atherosclerotic calcifications of aorta and multiple visceral arteries with high grade stenosis of the left common iliac artery and stenosis at the origin of the SMA and renal arteries couldn't be excluded. Pleural effusions, dilated pancreatic duct and chronic calcifications related to chronic pancreatitis. KUB 12/18 no dilated loops small or large bowel. still with fecal incontinence, black loose stool. per pt stool sample finally obtained, will await c diff and stool studies. - Anemia- No bleeding reported, likely anemia of chronic dz. pt had GI w/u for this in 2-3 y ago in [place], per pt normal EGD/colonoscopy/capsule endoscopy - Respiratory distress. This was felt related to combination of pneumonia COPD exacerbation and underlying CHF. pt on NV now - Hx of pancreatitis- recent extensive work up for this on previous admission - Hx of CAD, COPD, DVT on Eliquis per [facility] 12/21/2017 patient without any active bleeding at this time, no abdominal pain, significant chronic diseases with vascular issues patient had upper endoscopy and a colonoscopy IMPRESSION: Mild gastritis mostly in the antrum biopsy was done 1 cm polyp in the transverse colon removed by snare Small polyp in the sigmoid and ablated with heat Small internal hemorrhoid Normal colonoscopy otherwise No sign of active bleeding or old blood Anemia could be related to general health and chronic disease PLAN: May feed patient Await biopsy results Follow-up H&H with packed RBC as needed Colonoscopy in 3 years Capsule endoscopy as an outpatient if there are signs of bleeding and anemia persist Terry Brenner MD Dec 21, 2017 14:36
--- NOTE | 2017-12-21 19:01 | PD.CONS ---
[facility] Service Nephrology Consult Requested By Dr. Jacinto Reason for Consult ARF Primary Care Physician Malcolm Gay MD History of Present Illness The patient is a 72 yo [place] female who presented to this facility on 12/14 via [facility] for acute respiratory failure suspected to have been from COPD and CHF exacerbation. She was initially intubated, but extubated the next day. She has been maintained on IV Lasix since admission with brisk UOP. She developed abdominal pain on 12/[address] with contrast that showed a potential ileus as well as significant atherosclerotic diease in the aorta, visceral arteries, and iliac artery. Renal artery stenosis could not be ruled out. She underwent EGD/colonoscopy this AM and diet has been advanced since the procedure. Her baseline SCr level is 1.2-1.4 as per recently hospital records. States she does have underlying CKD and was under the care of amusement ride operator in [place] up until last year when she moved locally to be with her daughter. She has hx of medullary sponge kidney with multiple kidney stones in the past, but nothing in recent years. She also has hx of lupus that she says has been told "skin only" and follows with Dr. Chan locally. On Plaquenil for many years. Denies any NSAID use. She has significant vascular disease s/p peripheral stenting x3, PTCA x1, and DVTs x2 for which she has IVC filter. Does not follow locally with vascular surgeon. Admitting SCr on 12/14 was 1.95 [place] to 1.83 on 12/18 and has worsened to 3.14 at time of consult. (Cheerlle Bernard) Review of Systems Constitutional: COMPLAINS OF: Fatigue Gastrointestinal: COMPLAINS OF: Abdominal pain (Cherelle Bernard) Past Family Social History Allergies: Coded Allergies: cephalexin (Verified Allergy, Unknown, rash, 12/14/17) diatrizoate meglumine (Verified Allergy, Unknown, rash, 12/14/17) fluconazole (Verified Allergy, Unknown, rash, 12/14/17) gadobenic acid (Verified Allergy, Unknown, rash, 12/14/17) gadodiamide (Verified Allergy, Unknown, rash, 12/14/17) gadoteridol (Verified Allergy, Unknown, rash, 12/14/17) iodixanol (Verified Allergy, Unknown, rash, 12/14/17) iohexol (Verified Allergy, Unknown, rash, 12/14/17) pravastatin (Verified Allergy, Unknown, rash, 12/14/17) Past Medical History CAD s/p PTCA x1 April 2017 3 stents in RLE Diastolic HF hx (echo Aug 2017 showed preserved LVEF 55%) COPD DVT PAD Lupus HTN Pancreatitis Past Surgical History PTCA Peripheral stents Bilat hip repair Reported Medications Norvasc (Amlodipine Besylate) 5 Mg Tab 5 Mg PO DAILY Lopressor (Metoprolol Tartrate) 50 Mg Tab 50 Mg PO Q12HR Plavix (Clopidogrel Bisulfate) 75 Mg Tab 75 Mg PO DAILY Eliquis (Apixaban) 2.5 Mg BID Iron (Ferrous Sulfate) 18 Mg Tab 65 Mg PO DAILY Lisinopril 5 Mg Tab 5 Mg PO DAILY Mirtazapine 30 Mg Tab 30 Mg PO HS Sertraline (Sertraline HCl) 50 Mg Tab 50 Mg PO DAILY Plaquenil (Hydroxychloroquine Sulfate) 200 Mg Tab 200 Mg PO DAILY Take with food Active Ordered Medications Current Medications Medications (Trade) Dose Ordered Sig/Chris Route Start Time Stop Time Status Last Admin (NS Flush) 2 ml UNSCH PRN IV FLUSH 12/14/17 07:15 12/20/17 04:26 (NS Flush) 2 ml BID IV FLUSH 12/14/17 09:00 12/21/17 09:08 (Albuterol Neb) 2.5 mg Q4HR NEB PRN INH 12/14/17 07:15 (Peridex 0.12% Liq) 15 ml BID@08,20 MT 12/14/17 08:00 12/14/17 20:00 Miscellaneous Information 1 [id number] XX 12/14/17 07:15 (Chlorhexidine 2% Cloth) Taper DAILY@04 TOP 12/15/17 04:00 12/11/18 03:59 12/18/17 03:33 (Chlorhexidine 2% Cloth) 3 pack UNSCH PRN TOP 12/14/17 07:15 (Trandate Inj) 20 mg Q4H PRN IV PUSH 12/14/17 13:15 12/18/17 22:55 (Plavix) 75 mg DAILY PO 12/15/17 09:00 12/20/17 08:27 (Plaquenil) 200 mg DAILY PO 12/15/17 09:00 12/21/17 09:06 (Ferrous Sulfate) 325 mg DAILY PO 12/15/17 09:00 12/21/17 09:06 Heparin Sodium/ Dextrose 250 ml @ 7 mls/hr TITRATE PRN IV 12/14/17 15:45 12/20/17 15:39 (Apresoline Inj) 20 mg Q4H PRN IV PUSH 12/15/17 16:00 12/21/17 04:46 (Tylenol) 650 mg Q6H PRN PO 12/15/17 23:45 12/15/17 23:57 (Pepcid Inj) 10 mg Q12HR IV PUSH 12/16/17 21:00 12/21/17 09:05 (Remeron) 30 mg HS PO 12/16/17 21:00 12/20/17 20:25 (Zoloft) 50 mg DAILY PO 12/17/17 09:00 12/21/17 09:06 (Norvasc) 10 mg DAILY PO 12/17/17 09:00 12/21/17 09:06 (Lopressor) 50 mg Q8H PO 12/16/17 16:00 12/21/17 15:35 (Symbicort 160-4.5 Mcg Inh) 2 puff Q12HR INH 12/16/17 21:00 12/21/17 09:09 (Flagyl) 500 mg Q8HR PO 12/17/17 14:00 12/21/17 15:35 (Lasix Inj) 20 mg BID@,18 IV PUSH 12/17/17 18:00 Future Hold 12/20/17 08:27 (Zofran Inj) 4 mg Q4H PRN IV PUSH 12/17/17 15:00 12/20/17 20:24 (Morphine Inj) 2 mg Q4H PRN IV 12/17/17 16:30 12/19/17 22:58 (Levaquin) 500 mg DAILY@1100 PO 12/20/17 11:00 12/21/17 12:00 (Levaquin) 250 mg Q48H PO 12/22/17 11:00 Lactated Ringer's 1,000 ml @ 30 mls/hr Q24H PRN IV 12/20/17 15:00 12/23/17 14:59 12/21/17 12:30 Sodium Chloride 500 ml @ 30 mls/hr [id number] PRN IV 12/20/17 15:00 12/23/17 14:59 (Lopressor) 25 mg [employer] PRN PO 12/20/17 15:00 12/23/17 14:59 (Betadine 5% Antisepsis Kit) 1 applic [employer] PRN EACH NARE 12/20/17 15:00 12/23/17 14:59 (Chlorhexidine 2% Cloth) 3 pack [employer] PRN TOPICAL 12/20/17 15:00 12/23/17 14:59 (Deltasone) 40 mg DAILY PO 12/21/17 09:45 12/21/17 10:06 Family History NC Social History Denies tobacco use No EtOH No illicits (Cherelle Bernard) Physical Exam Vital Signs Vital Signs Date Time Temp Pulse Resp B/P (MAP) Pulse Ox O2 Delivery O2 Flow Rate FiO2 12/21/17 16:02 97.6 40 18 171/74 (106) 95 12/21/17 16:00 59 12/21/17 14:30 97.3 56 24 134/66 (88) 95 12/21/17 12:30 98.5 64 18 184/82 (116) 94 12/21/17 12:00 98.5 64 18 94 12/21/17 12:00 60 12/21/17 08:56 21 12/21/17 08:30 98.2 71 18 124/61 (82) 97 12/21/17 08:00 Nasal Cannula 2.00 12/21/17 08:00 61 12/21/17 06:00 98.0 73 19 160/78 (105) 96 12/21/17 04:00 Nasal Cannula 2.00 12/21/17 04:00 68 12/21/17 00:00 Nasal Cannula 2.00 12/21/17 00:00 97.1 64 19 139/69 (92) 94 12/21/17 00:00 70 12/20/17 20:30 Nasal Cannula 2.00 12/20/17 20:06 2.00 12/20/17 20:06 95 Nasal Cannula 2.00 12/20/17 20:00 67 12/20/17 20:00 97.8 67 19 150/67 (94) 93 Physical Exam GENERAL: Very frail, elderly lady who appears older than stated age. In NAD. On O2 via NC. Daughter present in room during interview. SKIN: Warm and dry. HEAD: Atraumatic. Normocephalic. EYES: Pupils equal and round. No scleral icterus. No injection or drainage. ENT: No nasal bleeding or discharge. Mucous membranes pink and moist. NECK: Trachea midline. No JVD. CARDIOVASCULAR: Regular rate and rhythm. RESPIRATORY: No accessory muscle use. Clear to auscultation but diminished GASTROINTESTINAL: Abdomen soft, non-tender, nondistended. Hepatic and splenic margins not palpable. MUSCULOSKELETAL: Extremities without clubbing, cyanosis, or edema. No obvious deformities. NEUROLOGICAL: Awake and alert. Normal speech. PSYCHIATRIC: Appropriate mood and affect; insight and judgment normal. Laboratory Laboratory Tests Test 12/21/17 06:22 Hemoglobin 8.2 Hematocrit 24.2 Activated Partial Thromboplast Time 58.1 Blood Urea Nitrogen 63 Creatinine 3.14 Random Glucose 105 Calcium Level 7.9 Sodium Level 147 Potassium Level 3.3 Chloride Level 109 Carbon Dioxide Level 26.6 Anion Gap 11 Estimat Glomerular Filtration Rate 15 Date/Time Source Procedure Growth Status 12/14/17 05:46 Blood Peripheral Aerobic Blood Culture - Final NO GROWTH IN 5 DAYS Complete 12/14/17 05:46 Blood Peripheral Anaerobic Blood Culture - Final NO GROWTH IN 5 DAYS Complete 12/20/17 10:30 Stool Stool Cryptosporidium Exam - Final NEGATIVE - NO CRYPTOSPORIDIUM ANTIGEN... Complete 12/20/17 10:30 Stool Stool Giardia Antigen (DAJA) - Final NEGATIVE - NO GIARDIA ANTIGEN DETECTE... Complete 12/14/17 09:00 Sputum Endotracheal Gram Stain - Final Complete 12/14/17 09:00 Sputum Endotracheal Sputum Culture - Final HEAVY GROWTH NORMAL RESPIRATORY KIMBERLY Complete (Cherelle Bernard) Result Diagram: 12/21/1722 12/21/17621 Imaging Last Impressions Foot X-Ray 12/19/17 1423 Signed Impressions: Service Date/Time: Tuesday, December 19, 2017 15:38 - CONCLUSION: 1. Diffuse osseous demineralization with no obvious acute fracture. 2. Osseous pins secure the medial malleolus. 3. Marked degenerative changes at the tibiotalar joint Ashish Lino MD Chest X-Ray 12/18/17 0600 Signed Impressions: Service Date/Time: Monday, December 18, 2017 03:08 - CONCLUSION: Persistent left lower lung consolidation and new small to moderate size left pleural effusion. Stable non-consolidative opacity lateral right. Angelito Rossi MD Abdomen X-Ray 12/18/17 0600 Signed Impressions: Service Date/Time: Monday, December 18, 2017 03:14 - CONCLUSION: No dilated loops of small or large bowel. Left lower lung consolidation. Angelito Rossi MD Abdomen/Pelvis CT 12/17/17 0000 Signed Impressions: Service Date/Time: Sunday, December 17, 2017 12:58 - CONCLUSION: 1. The cecum appears distended not present on the prior examination filled with fluid and stool of uncertain etiology could be due to ileus without signs of ischemic bowel for technique, however early ischemic bowel could be unremarkable by CT. Significant atherosclerotic calcifications of aorta and multiple visceral arteries with high-grade stenosis of the left common iliac artery and stenosis at the origin of the SMA and renal arteries are not excluded. 2. Bilateral pleural effusions and bibasilar consolidation or compressive collapse. 3. Dilated pancreatic duct and chronic calcifications related to chronic pancreatitis. Son Rivera MD Head CT 12/14/17 0000 Signed Impressions: Service Date/Time: November 06:08 - CONCLUSION: 1. No acute abnormality seen. 2. Mild atrophy. Chaim Lin MD (Cherelle Bernard) Assessment and Plan Problem List: (1) Acute on chronic kidney failure ICD Codes: N17.9 - Acute kidney failure, unspecified; N18.9 - Chronic kidney disease, unspecified Plan: Acute renal decline possibly related to volume depletion as well as contrast nephropathy given exposure on 12/17. She has been on IV Lasix since admission that has been held as of today. On gentle hydration and is now able to eat as of today as she has been NPO since her admission. She has numerous co-morbidities that is likely contributing to her underlying CKD, but up until 12/17 she seemed to have relatively stable renal functions with baseline SCr ~1.4. Continue with IVF and monitor UOP Hopefully the patient has not sustained ATN. Check renal US to assess parenchyma and size of kidneys. There is mention in CT of abdomen that renal artery stenosis cannot be ruled out among high grade stenosis identified in left iliac artery. This should be followed up as an outpatient. Encouraged to establish with local vascular surgeon given her severe atherosclerotic disease Would recommend that she establish with outpatient amusement ride operator given her underlying CKD. Doubtful her lupus hx is contributing to her acute event, but does need to be followed closely as outpatient given her proteinuria. Medications should be adjusted for her renal decline. Avoid nephrotoxins such as iodinated contrast dyes and NSAIDs. Avoid gadolinium with eGFR <30 (2) HTN (hypertension) ICD Codes: I10 - Essential (primary) hypertension Status: Chronic Plan: Continue on Metoprolol and Amlodipine. Start po Hydralazine for better BP control. (3) Hypernatremia ICD Codes: E87.0 - Hyperosmolality and hypernatremia Plan: Likely related to volume depletion. Hydration as ordered (4) Hypokalemia ICD Codes: E87.6 - Hypokalemia Plan: Repletion as ordered (5) Hypocalcemia ICD Codes: E83.51 - Hypocalcemia Plan: Check corrected calcium given hypoalbuminemia Check Vit D, iPTH, and Mg levels (6) Anemia ICD Codes: D64.9 - Anemia, unspecified Status: Acute Plan: Appears long standing and related to chronic illness Underwent EGD/colonoscopy this AM Check iron stores (7) COPD (chronic obstructive pulmonary disease) ICD Codes: J44.9 - Chronic obstructive pulmonary disease, unspecified Status: Chronic (8) CAD (coronary artery disease) ICD Codes: I25.10 - Atherosclerotic heart disease of [place] coronary artery without angina pectoris Status: Chronic (Cherelle Bernard) Assessment and Plan The exam, history, and the medical decision-making described in the above note were completed with the assistance of the PA-C. I reviewed and agree with the findings presented. I attest that I had a [id number] encounter with the patient on the same day, and personally performed and documented my assessment and findings in the medical record. (Brendan Beavers MD) Problem Qualifiers (1) Anemia: (2) COPD (chronic obstructive pulmonary disease): (3) CAD (coronary artery disease): Cherelle Bernard Dec 21, 2017 19:01 Brendan Beavers MD Dec 22, 2017 17:02
[2017-12-21] MEDS: HEPARIN 25,000 UNITS-D5W 250 ML - PREMIX IV PRN (19:11)
[2017-12-21] MEDS: MIRTAZAPINE 15 MG TAB PO SCH (22:30)
[2017-12-21] MEDS: hydrALAZINE HCL 10 MG TAB PO SCH (22:30)
[2017-12-21] MEDS: SODIUM CHLOR 0.45% 1000 ML INJ 1,000 ML IV SCH (22:35)
[2017-12-22] VITALS (10 sets, daily range): BP systolic 144–181; BP diastolic 64–86; PULSE 57–66; RESP 17–22; TEMP 98.5–98.9; O2SAT 93–99
[2017-12-22] MEDS: METOPROLOL TARTRATE 50 MG TAB PO SCH ×3 (00:16→16:57)
[2017-12-22] MEDS: MORPHINE SULFATE 2 MG/ML INJ IV PRN (01:25)
[2017-12-22] MEDS: CHLORHEXIDINE GLUCONATE 2 % 1 PACK (2 CLOTHS) TOP SCH (04:00)
[2017-12-22] MEDS: hydrALAZINE HCL 10 MG TAB PO SCH ×3 (05:22→21:30)
[2017-12-22] MEDS: metroNIDAZOLE 500 MG TAB PO SCH ×2 (05:22→12:58)
[2017-12-22 06:17] LABS: BICARBONATE 27.7 MEQ/L (21.0-32.0); BLOOD UREA NITROGEN 63 MG/DL (7-18); CALCIUM 7.8 MG/DL (8.5-10.1); CHLORIDE 109 MEQ/L (98-107); CREATININE 2.94 MG/DL (0.50-1.00); GLOMERULAR FILTRATION RATE 16 ML/MIN (>89); GLUCOSE,RANDOM 95 MG/DL (74-106); IRON (FE) 110 MCG/DL (50-170); MAGNESIUM 1.6 MG/DL (1.5-2.5); SODIUM (NA) 146 MEQ/L (136-145)
[2017-12-22 06:42] LABS: FERRITIN 1319 NG/ML (8-252); TOTAL IRON BINDING CAPACITY 106 MCG/DL (250-450)
[2017-12-22] MEDS: CHLORHEXIDINE 0.12% (ORAL KIT) 15 ML CUP MT SCH ×2 (07:46→20:00)
[2017-12-22] MEDS: SODIUM CHLORIDE 0.9% FLUSH 10 ML FLUSH IV FLUSH SCH ×2 (09:00→21:29)
[2017-12-22] MEDS: SODIUM CHLOR 0.45% 1000 ML INJ 1,000 ML IV SCH ×2 (09:29→18:17)
[2017-12-22] MEDS: FAMOTIDINE 20 MG/2 ML VIAL IV PUSH SCH ×2 (09:29→21:30)
[2017-12-22] MEDS: predniSONE 20 MG TAB PO SCH (09:30)
[2017-12-22] MEDS: HYDROXYCHLOROQUINE SULFATE 200 MG TAB PO SCH (09:30)
[2017-12-22] MEDS: FERROUS SULFATE 325 MG (65 MG ELEMENTAL IRON) TAB PO SCH (09:30)
[2017-12-22] MEDS: SERTRALINE HCL 50 MG TAB PO SCH (09:30)
[2017-12-22] MEDS: CLOPIDOGREL 75 MG TAB PO SCH (09:31)
[2017-12-22] MEDS: BUDESONIDE-FORMOTEROL 160/4.5 MCG INHALER INH SCH ×2 (09:31→21:00)
--- NOTE | 2017-12-22 10:00 | HHI.PR ---
Subjective Remarks in no acute distress. sob has much improved. denies pain. no fever. Objective Vitals Vital Signs Date Time Temp Pulse Resp B/P (MAP) Pulse Ox O2 Delivery O2 Flow Rate FiO2 12/22/17 08:02 98.7 60 21 181/82 (115) 95 12/22/17 06:21 63 17 148/86 (106) 94 12/22/17 04:01 60 12/22/17 04:00 98.7 61 22 166/64 (98) 96 12/22/17 04:00 Nasal Cannula 2.00 12/22/17 01:45 17 12/22/17 00:02 63 12/22/17 00:00 98.5 62 20 166/78 (107) 99 12/22/17 00:00 Nasal Cannula 2.00 12/21/17 22:30 Nasal Cannula 2.00 12/21/17 20:00 62 12/21/17 20:00 98.7 65 21 146/65 (92) 94 12/21/17 16:02 97.6 40 18 171/74 (106) 95 12/21/17 16:00 Nasal Cannula 2.00 12/21/17 16:00 59 12/21/17 14:30 97.3 56 24 134/66 (88) 95 12/21/17 12:30 98.5 64 18 184/82 (116) 94 12/21/17 12:00 98.5 64 18 94 12/21/17 12:00 60 I/O 12/21/17 12/21/17 12/21/17 12/22/17 12/22/17 12/22/17 07:00 15:00 23:00 07:00 15:00 23:00 Intake Total 654 ml 150 ml 150 ml 709 ml Output Total 400 ml Balance 654 ml 150 ml 150 ml 309 ml Intake Oral 400 ml 0 ml IV Total 254 ml 150 ml 709 ml Other 150 ml Output Urine Total 400 ml # Voids 2 2 3 # Bowel Movements 1 3 2 Result Diagram: 12/21/17 0622 12/22/17 0525 Imaging Last Impressions Foot X-Ray 12/19/17 1423 Signed Impressions: Service Date/Time: Tuesday, December 19, 2017 15:38 - CONCLUSION: 1. Diffuse osseous demineralization with no obvious acute fracture. 2. Osseous pins secure the medial malleolus. 3. Marked degenerative changes at the tibiotalar joint Ashish Lino MD Chest X-Ray 12/18/17 0600 Signed Impressions: Service Date/Time: Monday, December 18, 2017 03:08 - CONCLUSION: Persistent left lower lung consolidation and new small to moderate size left pleural effusion. Stable non-consolidative opacity lateral right. Angelito Rossi MD Abdomen X-Ray 12/18/17 0600 Signed Impressions: Service Date/Time: Monday, December 18, 2017 03:14 - CONCLUSION: No dilated loops of small or large bowel. Left lower lung consolidation. Angelito Rossi MD Abdomen/Pelvis CT 12/17/17 0000 Signed Impressions: Service Date/Time: Sunday, December 17, 2017 12:58 - CONCLUSION: 1. The cecum appears distended not present on the prior examination filled with fluid and stool of uncertain etiology could be due to ileus without signs of ischemic bowel for technique, however early ischemic bowel could be unremarkable by CT. Significant atherosclerotic calcifications of aorta and multiple visceral arteries with high-grade stenosis of the left common iliac artery and stenosis at the origin of the SMA and renal arteries are not excluded. 2. Bilateral pleural effusions and bibasilar consolidation or compressive collapse. 3. Dilated pancreatic duct and chronic calcifications related to chronic pancreatitis. Son Rivera MD Head CT 12/14/17 0000 Signed Impressions: Service Date/Time: November 06:08 - CONCLUSION: 1. No acute abnormality seen. 2. Mild atrophy. Chaim Lin MD Objective Remarks GENERAL: This is a well-nourished, well-developed patient, in no apparent distress. CARDIOVASCULAR: Regular rate and regular rhythm without murmurs, gallops, or rubs. RESPIRATORY: Clear to auscultation. Breath sounds equal bilaterally. No wheezes , rales, or rhonchi. GASTROINTESTINAL: Abdomen soft, non-tender, nondistended. Normal, active bowel sounds MUSCULOSKELETAL: Extremities without clubbing, cyanosis, or edema. NEURO: Alert & Oriented x4 to person, place, time, situation. Moves all ext x4 Procedures intubation. Medications and IVs Inpatient Medications Acetaminophen (Tylenol) 650 mg Q6H PRN PO HEADACHE OR TEMP > 101 F Last administered on 12/15/17at 23:57; Start 12/15/17 at 23:45 Albuterol Sulfate (Albuterol Neb) 2.5 mg Q4HR NEB PRN INH SHORTNESS OF BREATH; Start 12/14/17 at 07:15 Albuterol/ Ipratropium (Duoneb Neb) 1 ampule Q4HR NEB NEB Last administered on 12/20/17at 20:00; Start 12/17/17 at 12:00; Stop 12/21/17 at 11:59; Status DC Amlodipine Besylate (Norvasc) 10 mg DAILY PO Last administered on 12/22/17at 09: 30; Start 12/17/17 at 09:00 Azithromycin 500 mg/Sodium Chloride 250 ml @ 250 mls/hr Q24H IV Last administered on 12/20/17at 08:18; Start 12/14/17 at 08:00; Stop 12/20/17 at 09:13 ; Status DC Budesonide/ Formoterol Fumarate (Symbicort 160-4.5 Mcg Inh) 2 puff Q12HR INH Last administered on 12/22/17at 09:31; Start 12/16/17 at 21:00 Chlorhexidine Gluconate (Chlorhexidine 2% Cloth) 3 pack FOREPART ROUNDER PRN TOPICAL SEE LABEL COMMENTS; Start 12/20/17 at 15:00; Stop 12/23/17 at 14:59 Chlorhexidine Gluconate (Peridex 0.12% Liq) 15 ml BID@08,20 MT Last administered on 12/14/17at 20:00; Start 12/14/17 at 08:00 Clopidogrel Bisulfate (Plavix) 75 mg DAILY PO Last administered on 12/22/17at 09 :31; Start 12/15/17 at 09:00 Famotidine (Pepcid Inj) 10 mg Q12HR IV PUSH Last administered on 12/22/17at 09: 29; Start 12/16/17 at 21:00 Ferrous Sulfate (Ferrous Sulfate) 325 mg DAILY PO Last administered on at 09:30; Start 12/15/17 at 09:00 Furosemide (Lasix Inj) 20 mg BID@09,18 IV PUSH Last administered on 12/20/17at 08:27; Start 12/17/17 at 18:00; Status Future Hold Heparin Sodium/ Dextrose 250 ml @ 7 mls/hr TITRATE PRN IV Coagulation Management Last administered on 12/21/17 19:11; Start 12/14/17 at 15:45 Hydralazine HCl (Apresoline Inj) 20 mg Q4H PRN IV PUSH SBP > 160 MMHG Last administered on 12/21/17at 04:46; Start 12/15/17 at 16:00 Hydralazine HCl (Apresoline) 10 mg Q8HR PO Last administered on 12/22/17at 05:22 ; Start 12/21/17 at 22:00 Hydroxychloroquine Sulfate (Plaquenil) 200 mg DAILY PO Last administered on at 09:30; Start 12/15/17 at 09:00 Labetalol HCl (Trandate Inj) 20 mg Q4H PRN IV PUSH SYS BP GREATER THAN 160 MMHG Last administered on 12/18/17at 22:55; Start 12/14/17 at 13:15 Lactated Ringer's 1,000 ml @ 30 mls/hr Q24H PRN IV SEE LABEL COMMENTS Last administered on 12/21/17at 12:30; Start 12/20/17 at 15:00; Stop 12/23/17 at 14:59 Levofloxacin (Levaquin) 250 mg Q48H PO ; Start 12/22/17 at 11:00 Methylprednisolone Sodium Succinate (SoluMEDROL INJ) 20 mg Q12HR IV PUSH Last administered on 12/20/17at 20:24; Start 12/20/17 at 21:00; Stop 12/21/17 at 08:58 ; Status DC Metoprolol Tartrate (Lopressor) 25 mg FOREPART ROUNDER PRN PO SEE LABEL COMMENTS; Start 12/20/17 at 15:00; Stop 12/23/17 at 14:59 Metronidazole (Flagyl) 500 mg Q8HR PO Last administered on 12/22/17at 05:22; Start 12/17/17 at 14:00 Mirtazapine (Remeron) 30 mg HS PO Last administered on 12/21/17at 22:30; Start 12/16/17 at 21:00 Miscellaneous Information 1 [id number] ; Start 12/14/17 at 07:15 Morphine Sulfate (Morphine Inj) 2 mg Q4H PRN IV PAIN 1-10 Last administered on 12/22/17at 01:25; Start 12/17/17 at 16:30 Nifedipine (Procardia Xl) 30 mg ONCE ONCE PO Last administered on 12/20/17at 10 :30; Start 12/20/17 at 11:00; Stop 12/20/17 at 11:01; Status DC Nitroglycerin (Nitroglycerin 2% Oint) 1 inch ONCE ONCE TOPICAL Last administered on 12/14/17at 06:05; Start 12/14/17 at 05:45; Stop 12/14/17 at 05:46 ; Status DC Nitroglycerin/ Dextrose 250 ml @ 0 mls/hr TITRATE ONCE IV Last administered on 12/14/17at 07:03; Start 12/14/17 at 06:45; Stop 12/14/17 at 06:46; Status DC Ondansetron HCl (Zofran Inj) 4 mg Q4H PRN IV PUSH NAUSEA Last administered on at 20:24; Start 12/17/17 at 15:00 Piperacillin Sod/ Tazobactam Sod 50 ml @ 100 mls/hr Q8H IV Last administered on 12/20/17at 00:54; Start 12/14/17 at 09:00; Stop 12/20/17 at 09:13; Status DC Polyethylene Glycol (Miralax) 255 gm ONCE ONCE PO Last administered on at 19:32; Start 12/20/17 at 18:45; Stop 12/20/17 at 18:46; Status DC Polyethylene Glycol/ Electrolytes (Colyte Liq) 4,000 ml ONCE ONCE PO Last administered on 12/20/17at 15:29; Start 12/20/17 at 16:00; Stop 12/20/17 at 17:28 ; Status DC Potassium Bicarb/ Potassium Chloride (K-Lyte Cl Eff) 25 meq DAILY NG Last administered on 12/19/17at 10:26; Start 12/17/17 at 14:45; Stop 12/20/17 at 09:13 ; Status DC Potassium Chloride (KCl) 20 meq ONCE ONCE PO Last administered on 12/21/17at 10 :06; Start 12/21/17 at 09:45; Stop 12/21/17 at 09:46; Status DC Povidone Iodine (Betadine 5% Antisepsis Kit) 1 applic FOREPART ROUNDER PRN EACH NARE SEE LABEL COMMENTS; Start 12/20/17 at 15:00; Stop 12/23/17 at 14:59 Prednisone (Deltasone) 40 mg DAILY PO Last administered on 12/22/17at 09:30; Start 12/21/17 at 09:45 Propofol 100 ml @ 0 mls/hr TITRATE PRN IV SEDATION Last administered on at 06:45; Start 12/14/17 at 05:45; Stop 12/17/17 at 11:26; Status DC Sertraline HCl (Zoloft) 50 mg DAILY PO Last administered on 12/22/17at 09:30; Start 12/17/17 at 09:00 Sodium Bicarbonate 150 meq/Sterile Water 1,000 ml @ 100 mls/hr Q10H IV Last administered on 12/18/17at 08:12; Start 12/17/17 at 13:00; Stop 12/18/17 at 10:11 ; Status DC Sodium Bicarbonate (Sodium Bicarbonate 8.4% Inj) 100 meq ONCE ONCE IV PUSH Last administered on 12/17/17at 11:36; Start 12/17/17 at 11:30; Stop 12/17/17 at 11:31; Status DC Sodium Chloride 1,000 ml @ 84 mls/hr [id number] IV Last administered on at 09:29; Start 12/21/17 at 19:00 Sodium Chloride (NS Flush) 2 ml BID IV FLUSH Last administered on 12/21/17at 22: 34; Start 12/14/17 at 09:00 A/P Problem List: (1) Acute hypoxemic respiratory failure ICD Code: J96.01 - Acute respiratory failure with hypoxia Status: Acute (2) Sepsis ICD Code: A41.9 - Sepsis, unspecified organism (3) COPD with acute exacerbation ICD Code: J44.1 - Chronic obstructive pulmonary disease with (acute) exacerbation (4) Pneumonia ICD Code: J18.9 - Pneumonia, unspecified organism Status: Acute (5) CHF exacerbation ICD Code: I50.9 - Heart failure, unspecified Status: Acute (6) Pulmonary hypertension due to COPD ICD Code: I27.23 - Pulmonary hypertension due to lung diseases and hypoxia; J44.9 - Chronic obstructive pulmonary disease, unspecified (7) PAD (peripheral artery disease) ICD Code: I73.9 - Peripheral vascular disease, unspecified Status: Chronic (8) COPD (chronic obstructive pulmonary disease) ICD Code: J44.9 - Chronic obstructive pulmonary disease, unspecified Status: Chronic (9) Chronic anticoagulation ICD 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: 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 (10) Anemia ICD Code: D64.9 - Anemia, unspecified Status: Acute (11) HTN (hypertension) ICD Code: I10 - Essential (primary) hypertension Status: Chronic (12) Hx of deep venous thrombosis ICD Code: Z86.718 - Personal history of other venous thrombosis and embolism Status: Chronic (13) CAD (coronary artery disease) ICD Code: I25.10 - Atherosclerotic heart disease of [place] coronary artery without angina pectoris Status: Chronic (14) Rheumatoid arthritis ICD Code: M06.9 - Rheumatoid arthritis, unspecified Status: Chronic (15) CKD (chronic kidney disease) stage 3, GFR 30-59 ml/min ICD Code: N18.3 - Chronic kidney disease, stage 3 (moderate) Status: Chronic Assessment and Plan A/P History depression CT brain -no acute intracranial findings Resumed Sertraline and mirtazapine Pulmonary edema/ fluid overload- has resolved. Coronary artery disease status post stent RCA 05/13 Dr. Moody Hypothermia-resolved Peripheral arterial disease status post lower extremity stenting Hypertension Dyslipidemia PVD Pulmonary hypertension continue to hold IV Lasix today. Continue home medications Plavix resume eliquis. Prev Echocardiogram 09/12 revealed EF around 55%. No regional wall motion abnormality. Normal systolic and diastolic function Metoprolol to 50 q8h and Norvasc to 10 mg daily, holding lisinopril started on Hydralazine continue to monitor BP and adjust the regimen as needed. being followed up by vascular surgery as outpatient. Acute hypoxic respiratory failure-resolved Acute COPD exacerbation Probable pneumonia 50 year tobacco history Albuterol/ipratropium aerosols every 4 hours with albuterol aerosols every 2 hours. continue po steroids. deescalate the antibiotic regimen; started on po levaquin with renal dosing per pharmacy Symbicort every 12 failed walk test ; case management consulted for home oxygen. Cecal dilatation GI bleed History of Cholelithiasis, Pancreatitis continue Pepcid monitor H/H evaluated by GI; s/p EGD/ colonoscopy; Mild gastritis mostly in the antrum biopsy was done.1 cm polyp in the transverse colon removed by snare.Small polyp in the sigmoid and ablated with heat. Small internal hemorrhoid.Normal colonoscopy otherwise History of RA Lupus? Hydroxychloroquine 200 mg daily for her underlying rheumatologic disorder SSI Acute on chronic kidney injury hypernatremia hypokalemia History of nephrolithiasis renal function slightly improved. continue to hold lasix for now. continue gentle IV hydration. nephrology consult appreciated. monitor the electrolytes and replace as needed. Monitor urine output Accurate I's and O's Avoid nephrotoxic drugs Normocytic anemia Chronic anticoagulation with Eliquis History of DVTs bilateral lower extremities Continue clopidogrel/resume eliquis. Continue IV Heparin Severe Sepsis-improved Pneumonia Continue antibiotics. Lower extremity ankle and thigh wound ulcers/chronic DVT prophylaxis; back on Eliquis. Discharge Planning dc planning; home with [facility]- needs home oxygen. awaiting renal recovery and improvement in kidney function. might need to stay for another one-two days. Problem Qualifiers (1) Pneumonia: (2) CHF exacerbation: Qualified Codes: I50.9 - Heart failure, unspecified (3) COPD (chronic obstructive pulmonary disease): (4) Anemia: (5) CAD (coronary artery disease): Christy Jacinto MD Dec 22, 2017 10:00
--- NOTE | 2017-12-22 11:41 | RADRPT ---
EXAM DATE/TIME: 12/22/2017 10:41 [facility] COMPARISON: No previous studies available for comparison. INDICATIONS : Increased BUN/Creatinine. MEDICAL HISTORY : Hypertension. Myocardial infarction. Deep venous thrombosis. Arthritis. Lupus. MRSA. COPD. SURGICAL HISTORY : IVC filter. Parathyroid surgery. Cardiac stent. Orthopedic surgery, bilateral femur, right ankle and left wrist. Cardiac catheterization. ENCOUNTER: Initial ACUITY: 1 day PAIN SCORE: 0/10 LOCATION: Right flank MEASUREMENTS: RIGHT KIDNEY: 9.1 x 3.9 x 4.5 cm LEFT KIDNEY: 8.9 x 4.5 x 4.9 cm FINDINGS: RIGHT KIDNEY: Small echogenic kidneys with thin cortex. 2 small cysts less than 1 cm. LEFT KIDNEY: Small echogenic kidney with one small cyst. BLADDER: Within normal limits given the degree of distension. CONCLUSION: Small echogenic kidneys without hydronephrosis. Hector Maya MD FACR on December 22, 2017 at 11:38 Board Certified Radiologist. This report was verified electronically.
[2017-12-22] MEDS: LEVOFLOXACIN 250 MG TAB PO SCH (12:57)
--- NOTE | 2017-12-22 15:23 | HHI.GIFU ---
Subjective Remarks Pt resting in bed. Denies any GI complaints at this time. Has not had a BM since procedure. Tolerating diet. Objective Vitals I&O Vital Signs Date Time Temp Pulse Resp B/P (MAP) Pulse Ox O2 Delivery O2 Flow Rate FiO2 12/22/17 12:00 58 12/22/17 12:00 98.6 57 20 153/70 (97) 96 12/22/17 08:02 98.7 60 21 181/82 (115) 95 12/22/17 08:00 60 12/22/17 08:00 Room Air 12/22/17 06:21 63 17 148/86 (106) 94 12/22/17 04:01 60 12/22/17 04:00 98.7 61 22 166/64 (98) 96 12/22/17 04:00 Nasal Cannula 2.00 12/22/17 01:45 17 12/22/17 00:02 63 12/22/17 00:00 98.5 62 20 166/78 (107) 99 12/22/17 00:00 Nasal Cannula 2.00 12/21/17 22:30 Nasal Cannula 2.00 12/21/17 20:00 62 12/21/17 20:00 98.7 65 21 146/65 (92) 94 12/21/17 16:02 97.6 40 18 171/74 (106) 95 12/21/17 16:00 Nasal Cannula 2.00 12/21/17 16:00 59 I/O 12/21/17 12/21/17 12/21/17 12/22/17 12/22/17 12/22/17 07:00 15:00 23:00 07:00 15:00 23:00 Intake Total 654 ml 150 ml 150 ml 709 ml Output Total 400 ml Balance 654 ml 150 ml 150 ml 309 ml Intake Oral 400 ml 0 ml IV Total 254 ml 150 ml 709 ml Other 150 ml Output Urine Total 400 ml # Voids 2 2 3 # Bowel Movements 1 3 2 Laboratory Laboratory Tests Test 12/22/17 05:25 12/22/17 14:06 Activated Partial Thromboplast Time 79.4 39.9 Blood Urea Nitrogen 63 Creatinine 2.94 Random Glucose 95 Calcium Level 7.8 Magnesium Level 1.6 Sodium Level 146 Potassium Level 3.4 Chloride Level 109 Carbon Dioxide Level 27.7 Anion Gap 9 Estimat Glomerular Filtration Rate 16 Iron Level 110 Total Iron Binding Capacity 106 Ferritin 1319 Total Protein 5.1 Vitamin B12 Level 615 25-Hydroxy Vitamin D Total 13.9 Parathyroid Hormone (Intact) 365.3 Date/Time Source Procedure Growth Status 12/14/17 05:46 Blood Peripheral Aerobic Blood Culture - Final NO GROWTH IN 5 DAYS Complete 12/14/17 05:46 Blood Peripheral Anaerobic Blood Culture - Final NO GROWTH IN 5 DAYS Complete 12/20/17 10:30 Stool Stool Cryptosporidium Exam - Final NEGATIVE - NO CRYPTOSPORIDIUM ANTIGEN... Complete 12/20/17 10:30 Stool Stool Giardia Antigen (DAJA) - Final NEGATIVE - NO GIARDIA ANTIGEN DETECTE... Complete 12/14/17 09:00 Sputum Endotracheal Gram Stain - Final Complete 12/14/17 09:00 Sputum Endotracheal Sputum Culture - Final HEAVY GROWTH NORMAL RESPIRATORY KIMBERLY Complete Imaging Last Impressions Renal Ultrasound 12/22/17 0000 Signed Impressions: Service Date/Time: Friday, December 22, 2017 10:41 - CONCLUSION: Small echogenic kidneys without hydronephrosis. Hector Maya MD FACR Foot X-Ray 12/19/17 1423 Signed Impressions: Service Date/Time: Tuesday, December 19, 2017 15:38 - CONCLUSION: 1. Diffuse osseous demineralization with no obvious acute fracture. 2. Osseous pins secure the medial malleolus. 3. Marked degenerative changes at the tibiotalar joint Ashish Lino MD Chest X-Ray 12/18/17 0600 Signed Impressions: Service Date/Time: Monday, December 18, 2017 03:08 - CONCLUSION: Persistent left lower lung consolidation and new small to moderate size left pleural effusion. Stable non-consolidative opacity lateral right. Angelito Rossi MD Abdomen X-Ray 12/18/17 0600 Signed Impressions: Service Date/Time: Monday, December 18, 2017 03:14 - CONCLUSION: No dilated loops of small or large bowel. Left lower lung consolidation. Angelito Rossi MD Abdomen/Pelvis CT 12/17/17 0000 Signed Impressions: Service Date/Time: Sunday, December 17, 2017 12:58 - CONCLUSION: 1. The cecum appears distended not present on the prior examination filled with fluid and stool of uncertain etiology could be due to ileus without signs of ischemic bowel for technique, however early ischemic bowel could be unremarkable by CT. Significant atherosclerotic calcifications of aorta and multiple visceral arteries with high-grade stenosis of the left common iliac artery and stenosis at the origin of the SMA and renal arteries are not excluded. 2. Bilateral pleural effusions and bibasilar consolidation or compressive collapse. 3. Dilated pancreatic duct and chronic calcifications related to chronic pancreatitis. Son Rivera MD Head CT 12/14/17 0000 Signed Impressions: Service Date/Time: November 06:08 - CONCLUSION: 1. No acute abnormality seen. 2. Mild atrophy. Chaim Lin MD Physical Exam HEENT: Normocephalic; atraumatic CHEST: Tachypneic CARDIAC: RRR ABDOMEN: Soft, nondistended, nontender, bowel sounds active EXTREMITIES: No clubbing, cyanosis, or edema SKIN: Normal; no rash; no jaundice. ORDER PACKER OR PACKAGER: No focal deficits; alert and oriented times three. Assessment and Plan Plan - Dilated cecum/ ileus/ loose stools- Ct on 12/17/17 showed cecum distended , filled with fluid and stools, possible ileus. Significant atherosclerotic calcifications of aorta and multiple visceral arteries with high grade stenosis of the left common iliac artery and stenosis at the origin of the SMA and renal arteries couldn't be excluded. Pleural effusions, dilated pancreatic duct and chronic calcifications related to chronic pancreatitis. KUB 12/18 no dilated loops small or large bowel. still with fecal incontinence, black loose stool. per pt stool sample finally obtained, will await c diff and stool studies. - Anemia- No bleeding reported, likely anemia of chronic dz. pt had GI w/u for this in 2-3 y ago in [place], per pt normal EGD/colonoscopy/capsule endoscopy - Respiratory distress. This was felt related to combination of pneumonia COPD exacerbation and underlying CHF. pt on [place] now - Hx of pancreatitis- recent extensive work up for this on previous admission - Hx of CAD, COPD, DVT on Eliquis per [facility] 12/21/2017 patient without any active bleeding at this time, no abdominal pain, significant chronic diseases with vascular issues patient had upper endoscopy and a colonoscopy (12/22) S/P EGD and colonoscopy yesterday --> Mild gastritis mostly in the antrum biopsy was done 1 cm polyp in the transverse colon removed by snare. Small polyp in the sigmoid and ablated with heat. Small internal hemorrhoid Normal colonoscopy otherwise. No sign of active bleeding or old blood. Anemia likely secondary to chronic disease and decreased renal function. H/H remains stable with some improvement today. Currently 8.2/24.2. No obvious GIB. Pt denies BM since procedure. Tolerating diet. She is currently on Plavix and Heparin gtt, Heparin gtt is being discontinued and pt is being restarted on Eliquis this evening. GI will sign, off please reconsult as needed. Plan: BRUCE Avoid NSAIDs Biopsy from colon and EGD pending GI will sign off, please reconsult as needed Have pt follow up in office 1-2 weeks post discharge Pt has been seen and examined by myself and Dr. Brenner and this note is written on his behalf Meeta Zacarias Dec 22, 2017 15:23
--- NOTE | 2017-12-22 16:24 | HHI.NPPN ---
Subjective History of Present Illness The patient is a 72 yo [place] female who presented to this facility on 12/14 via [facility] for acute respiratory failure suspected to have been from COPD and CHF exacerbation. She was initially intubated, but extubated the next day. She has been maintained on IV Lasix since admission with brisk UOP. She developed abdominal pain on 12/[address] with contrast that showed a potential ileus as well as significant atherosclerotic diease in the aorta, visceral arteries, and iliac artery. Renal artery stenosis could not be ruled out. She underwent EGD/colonoscopy this AM and diet has been advanced since the procedure. Her baseline SCr level is 1.2-1.4 as per recently hospital records. States she does have underlying CKD and was under the care of pressroom supervisor in [place] up until last year when she moved locally to be with her daughter. She has hx of medullary sponge kidney with multiple kidney stones in the past, but nothing in recent years. She also has hx of lupus that she says has been told "skin only" and follows with Dr. Chan locally. On Plaquenil for many years. Denies any NSAID use. She has significant vascular disease s/p peripheral stenting x3, PTCA x1, and DVTs x2 for which she has IVC filter. Does not follow locally with vascular surgeon. Admitting SCr on 12/14 was 1.95 M[place] to 1.83 on 12/18 and has worsened to 3.14 at time of consult. Interval History Pt feeling better today SOB improved Anxious to go home (Cherelle Bernard) Review of Systems General General Remarks ROS negative (Cherelle Bernard) Objective Data Data Vital Signs Date Time Temp Pulse Resp B/P (MAP) Pulse Ox O2 Delivery O2 Flow Rate FiO2 12/22/17 12:00 58 12/22/17 12:00 98.6 57 20 153/70 (97) 96 12/22/17 08:02 98.7 60 21 181/82 (115) 95 12/22/17 08:00 60 12/22/17 08:00 Room Air 12/22/17 06:21 63 17 148/86 (106) 94 12/22/17 04:01 60 12/22/17 04:00 98.7 61 22 166/64 (98) 96 12/22/17 04:00 Nasal Cannula 2.00 12/22/17 01:45 17 12/22/17 00:02 63 12/22/17 00:00 98.5 62 20 166/78 (107) 99 12/22/17 00:00 Nasal Cannula 2.00 12/21/17 22:30 Nasal Cannula 2.00 12/21/17 20:00 62 12/21/17 20:00 98.7 65 21 146/65 (92) 94 (Cherelle Bernard) -: 12/21/17 0622 12/22/17 0525 Imaging Last Impressions Renal Ultrasound 12/22/17 0000 Signed Impressions: Service Date/Time: Friday, December 22, 2017 10:41 - CONCLUSION: Small echogenic kidneys without hydronephrosis. Hector Maya MD FACR Foot X-Ray 12/19/17 1423 Signed Impressions: Service Date/Time: Tuesday, December 19, 2017 15:38 - CONCLUSION: 1. Diffuse osseous demineralization with no obvious acute fracture. 2. Osseous pins secure the medial malleolus. 3. Marked degenerative changes at the tibiotalar joint Ashish Lino MD Chest X-Ray 12/18/17 0600 Signed Impressions: Service Date/Time: Monday, December 18, 2017 03:08 - CONCLUSION: Persistent left lower lung consolidation and new small to moderate size left pleural effusion. Stable non-consolidative opacity lateral right. Angelito Rossi MD Abdomen X-Ray 12/18/17 0600 Signed Impressions: Service Date/Time: Monday, December 18, 2017 03:14 - CONCLUSION: No dilated loops of small or large bowel. Left lower lung consolidation. Angelito Rossi MD Abdomen/Pelvis CT 12/17/17 0000 Signed Impressions: Service Date/Time: Sunday, December 17, 2017 12:58 - CONCLUSION: 1. The cecum appears distended not present on the prior examination filled with fluid and stool of uncertain etiology could be due to ileus without signs of ischemic bowel for technique, however early ischemic bowel could be unremarkable by CT. Significant atherosclerotic calcifications of aorta and multiple visceral arteries with high-grade stenosis of the left common iliac artery and stenosis at the origin of the SMA and renal arteries are not excluded. 2. Bilateral pleural effusions and bibasilar consolidation or compressive collapse. 3. Dilated pancreatic duct and chronic calcifications related to chronic pancreatitis. Son Rivera MD Head CT 12/14/17 0000 Signed Impressions: Service Date/Time: November 06:08 - CONCLUSION: 1. No acute abnormality seen. 2. Mild atrophy. Chaim Lin MD Medication Review Current Medications Medications (Trade) Dose Ordered Sig/Chris Route Start Time Stop Time Status Last Admin (NS Flush) 2 ml UNSCH PRN IV FLUSH 12/14/17 07:15 12/20/17 04:26 (NS Flush) 2 ml BID IV FLUSH 12/14/17 09:00 12/21/17 22:34 (Albuterol Neb) 2.5 mg Q4HR NEB PRN INH 12/14/17 07:15 (Peridex 0.12% Liq) 15 ml BID@08,20 MT 12/14/17 08:00 12/14/17 20:00 Miscellaneous Information 1 [id number] XX 12/14/17 07:15 (Chlorhexidine 2% Cloth) Taper DAILY@04 TOP 12/15/17 04:00 12/11/18 03:59 12/18/17 03:33 (Chlorhexidine 2% Cloth) 3 pack UNSCH PRN TOP 12/14/17 07:15 (Trandate Inj) 20 mg Q4H PRN IV PUSH 12/14/17 13:15 12/18/17 22:55 (Plavix) 75 mg DAILY PO 12/15/17 09:00 12/22/17 09:31 (Plaquenil) 200 mg DAILY PO 12/15/17 09:00 12/22/17 09:30 (Ferrous Sulfate) 325 mg DAILY PO 12/15/17 09:00 12/22/17 09:30 Heparin Sodium/ Dextrose 250 ml @ 7 mls/hr TITRATE PRN IV 12/14/17 15:45 12/22/17 17:00 12/21/17 19:11 (Apresoline Inj) 20 mg Q4H PRN IV PUSH 12/15/17 16:00 12/21/17 04:46 (Tylenol) 650 mg Q6H PRN PO 12/15/17 23:45 12/15/17 23:57 (Pepcid Inj) 10 mg Q12HR IV PUSH 12/16/17 21:00 12/22/17 09:29 (Remeron) 30 mg HS PO 12/16/17 21:00 12/21/17 22:30 (Zoloft) 50 mg DAILY PO 12/17/17 09:00 12/22/17 09:30 (Norvasc) 10 mg DAILY PO 12/17/17 09:00 12/22/17 09:30 (Lopressor) 50 mg Q8H PO 12/16/17 16:00 12/22/17 09:30 (Symbicort 160-4.5 Mcg Inh) 2 puff Q12HR INH 12/16/17 21:00 12/22/17 09:31 (Lasix Inj) 20 mg BID@18 IV PUSH 12/17/17 18:00 Future Hold 12/20/17 08:27 (Zofran Inj) 4 mg Q4H PRN IV PUSH 12/17/17 15:00 12/20/17 20:24 (Morphine Inj) 2 mg Q4H PRN IV 12/17/17 16:30 12/22/17 01:25 (Levaquin) 250 mg Q48H PO 12/22/17 11:00 12/22/17 12:57 Lactated Ringer's 1,000 ml @ 30 mls/hr Q24H PRN IV 12/20/17 15:00 12/23/17 14:59 12/21/17 12:30 Sodium Chloride 500 ml @ 30 mls/hr [id number] PRN IV 12/20/17 15:00 12/23/17 14:59 (Lopressor) 25 mg [employer] PRN PO 12/20/17 15:00 12/23/17 14:59 (Betadine 5% Antisepsis Kit) 1 applic [employer] PRN EACH NARE 12/20/17 15:00 12/23/17 14:59 (Chlorhexidine 2% Cloth) 3 pack [employer] PRN TOPICAL 12/20/17 15:00 12/23/17 14:59 (Deltasone) 40 mg DAILY PO 12/21/17 09:45 12/22/17 09:30 Sodium Chloride 1,000 ml @ 84 mls/hr [id number] IV 12/21/17 19:00 12/22/17 09:29 (Apresoline) 10 mg Q8HR PO 12/21/17 22:00 12/22/17 12:58 (Benadryl) 50 mg HS PRN PO 12/22/17 10:00 (Eliquis) 5 mg BID PO 12/22/17 21:00 (Cherelle Bernard) Physical Exam General Appearance: No Acute Distress (Cherelle Bernard) Throat Throat Exam: Oral Mucosa Elbert & Moist (Cherelle Bernard) Neck Neck Exam: Neck Supple, Trachea Midline (Cherelle Bernard) Pulmonary Resp Exam: Clear Bilaterally, Breath Sounds Equal (Cherelle Bernard) Cardiology CV Exam: Regular, Normal Sinus Rhythm (Cherelle Bernard) Gastrointestinal/Abdomen GI Exam: Soft, Non-Tender (Cherelle Bernard) Integumentary Skin Exam: Clear, Warm, Dry (Cherelle Bernard) Extremeties Extremities Exam: No Edema (Cherelle Bernard) Neurologic Neuro Exam: Alert, Awake (Cherelle Bernard) Psychiatric Psych Exam: Appropriate Responses (Cherelle Bernard) Assessment/Plan Problem List: (1) Acute on chronic kidney failure ICD Codes: N17.9 - Acute kidney failure, unspecified; N18.9 - Chronic kidney disease, unspecified Plan: Acute renal decline possibly related to volume depletion as well as contrast nephropathy given exposure on 12/17. Renal functions improved with hydration. Continue IVF as ordered. Baseline SCr 1.4. There is mention in CT of abdomen that renal artery stenosis cannot be ruled out among high grade stenosis identified in left iliac artery. This should be followed up as an outpatient. Encouraged to establish with local vascular surgeon given her severe atherosclerotic disease Would recommend that she establish with outpatient pressroom supervisor given her underlying CKD. Doubtful her lupus hx is contributing to her acute event, but does need to be followed closely as outpatient given her proteinuria. Medications should be adjusted for her renal decline. Avoid nephrotoxins such as iodinated contrast dyes and NSAIDs. Avoid gadolinium with eGFR <30 (2) HTN (hypertension) ICD Codes: I10 - Essential (primary) hypertension Status: Chronic Plan: BP improved (3) Hypernatremia ICD Codes: E87.0 - Hyperosmolality and hypernatremia Plan: Improving with hydration (4) Hypokalemia ICD Codes: E87.6 - Hypokalemia Plan: Repletion as ordered (5) Hypocalcemia ICD Codes: E83.51 - Hypocalcemia Plan: Calcium improved. Likely related to Vitamin D deficiency. Start Ergocalciferol (6) Secondary hyperparathyroidism ICD Codes: N25.81 - Secondary hyperparathyroidism of renal origin Plan: Likely related to both vitamin D deficiency as well as of renal origin (7) Anemia ICD Codes: D64.9 - Anemia, unspecified Status: Acute Plan: Appears long standing and related to chronic illness Underwent EGD/colonoscopy this AM Iron levels pending (8) COPD (chronic obstructive pulmonary disease) ICD Codes: J44.9 - Chronic obstructive pulmonary disease, unspecified Status: Chronic (9) CAD (coronary artery disease) ICD Codes: I25.10 - Atherosclerotic heart disease of [place] coronary artery without angina pectoris Status: Chronic (Cherelle Bernard) Plan The exam, history, and the medical decision-making described in the above note were completed with the assistance of the PAYesy. I reviewed and agree with the findings presented. (Brendan Beavers MD) Problem Qualifiers (1) Anemia: (2) COPD (chronic obstructive pulmonary disease): (3) CAD (coronary artery disease): Cherelle Bernard Dec 22, 2017 16:24 Brendan Beavers MD Dec 23, 2017 16:43
[2017-12-22] MEDS ORDERED: POTASSIUM CHLORIDE 20 MEQ CONTROLLED RELEASE TAB PO ONE (16:30)
[2017-12-22] MEDS: CALCIUM CARBONATE 1.25 GM (CA 500 MG) TAB PO SCH (16:55)
[2017-12-22] MEDS ORDERED: ERGOCALCIFEROL (VIT D2) 50,000 UNIT CAP PO SCH (17:00)
[2017-12-22] MEDS: MIRTAZAPINE 15 MG TAB PO SCH (21:29)
[2017-12-22] MEDS: APIXABAN 5 MG TABLET PO SCH (21:29)
[2017-12-22] MEDS: diphenhydrAMINE HCL 50 MG CAP PO PRN (21:35)
[2017-12-23] VITALS (9 sets, daily range): BP systolic 126–205; BP diastolic 60–93; PULSE 56–68; RESP 18–21; TEMP 98.2–99.5; O2SAT 92–98
[2017-12-23] MEDS: METOPROLOL TARTRATE 50 MG TAB PO SCH ×3 (01:30→16:59)
[2017-12-23] MEDS: CHLORHEXIDINE GLUCONATE 2 % 1 PACK (2 CLOTHS) TOP SCH (04:00)
[2017-12-23] MEDS: SODIUM CHLOR 0.45% 1000 ML INJ 1,000 ML IV SCH (05:58)
[2017-12-23] MEDS: hydrALAZINE HCL 10 MG TAB PO SCH ×3 (05:58→21:08)
[2017-12-23] MEDS: CHLORHEXIDINE 0.12% (ORAL KIT) 15 ML CUP MT SCH ×2 (08:00→20:00)
[2017-12-23] MEDS: predniSONE 20 MG TAB PO SCH (08:34)
[2017-12-23] MEDS: FAMOTIDINE 20 MG/2 ML VIAL IV PUSH SCH ×2 (08:35→21:04)
[2017-12-23] MEDS: APIXABAN 5 MG TABLET PO SCH ×2 (08:35→21:03)
[2017-12-23] MEDS: CLOPIDOGREL 75 MG TAB PO SCH (08:35)
[2017-12-23] MEDS: SERTRALINE HCL 50 MG TAB PO SCH (08:36)
[2017-12-23] MEDS: FERROUS SULFATE 325 MG (65 MG ELEMENTAL IRON) TAB PO SCH (08:36)
[2017-12-23] MEDS: SODIUM CHLORIDE 0.9% FLUSH 10 ML FLUSH IV FLUSH SCH ×2 (08:36→21:04)
[2017-12-23] MEDS: CALCIUM CARBONATE 1.25 GM (CA 500 MG) TAB PO SCH (08:36)
[2017-12-23] MEDS: BUDESONIDE-FORMOTEROL 160/4.5 MCG INHALER INH SCH ×2 (08:37→21:00)
[2017-12-23] MEDS: HYDROXYCHLOROQUINE SULFATE 200 MG TAB PO SCH (09:13)
[2017-12-23 15:00] LABS: AUTOMATED NEUTROPHIL # 11.6 TH/MM3 (1.8-7.7); EOSINOPHIL % 0.1 % (0.0-4.0); HEMATOCRIT 26.6 % (35.0-46.0); HEMOGLOBIN 8.9 GM/DL (11.6-15.3); LYMPH % 3.1 % (9.0-44.0); LYMPHOCYTE # 0.4 TH/MM3 (1.0-4.8); MEAN CELL VOLUME 92.1 FL (80.0-100.0); MEAN CORPUSCULAR HGB CONC 33.6 % (32.0-36.0); MEAN PLATELET VOLUME 8.2 FL (7.0-11.0); MONO % 0.9 % (0.0-8.0); MONOCYTE # 0.1 TH/MM3 (0-0.9); NEUT % 95.9 % (16.0-70.0); PLATELET COUNT 191 TH/MM3 (150-450); RED BLOOD COUNT 2.89 MIL/MM3 (4.00-5.30); RED CELL DISTRIBUTION WIDTH 14.3 % (11.6-17.2); WHITE BLOOD COUNT 12.1 TH/MM3 (4.0-11.0)
[2017-12-23 15:11] LABS: ALBUMIN 2.3 GM/DL (3.4-5.0); ALT (GPT) 31 U/L (10-53); AST (GOT) 29 U/L (15-37); BICARBONATE 24.9 MEQ/L (21.0-32.0); BLOOD UREA NITROGEN 54 MG/DL (7-18); CALCIUM 7.7 MG/DL (8.5-10.1); CHLORIDE 111 MEQ/L (98-107); CREATININE 2.53 MG/DL (0.50-1.00); GLOMERULAR FILTRATION RATE 19 ML/MIN (>89); GLUCOSE,RANDOM 112 MG/DL (74-106); MAGNESIUM 1.6 MG/DL (1.5-2.5); PHOSPHORUS 3.6 MG/DL (2.5-4.9); SODIUM (NA) 145 MEQ/L (136-145)
[2017-12-23 15:20] LABS: ALKALINE PHOSPHATASE 65 U/L (45-117); TOTAL BILIRUBIN ADULT 0.2 MG/DL (0.2-1.0); TOTAL PROTEIN 5.4 GM/DL (6.4-8.2)
[2017-12-23 15:21] LABS: ALBUMIN 2.5 GM/DL (3.4-5.0); BICARBONATE 26.1 MEQ/L (21.0-32.0); CALCIUM 8.2 MG/DL (8.5-10.1); CREATININE 2.56 MG/DL (0.50-1.00); PHOSPHORUS 3.6 MG/DL (2.5-4.9)
--- NOTE | 2017-12-23 16:00 | HHI.PR ---
Subjective Remarks Patient is a 72-year-old female with past medical history of CAD s/p stent 05/13 , diastolic heart failure, COPD, lower ext DVTs on anticoagulation with Eliquis , PAD, lupus, depression, and hypertension was brought in by [facility]. Patient had Oxygen saturation was 70s on room air as per [facility]. Despite breathing treatments patient continued to deteriorate with respiratory rate in 50s and hypoxemic and patient was intubated by [facility] after Ativan 4mg IV and 20mg of etomidate. In the ER patient was evaluated by Dr. Maguire. Received Solu-Medrol and breathing treatments, also IV Lasix 40 mg 1. Chest x-ray showed Hyperinflated lungs with diffuse increased interstitial markings related to edema. Pt was also hypothermic at 93, WBC 11.7. BUN/creatinine elevated at 48/ 1.95 baseline 1.3 to 1.6. Pt given Lasix 40mg IV and Thompson inserted. Also sedated on propofol drip and given nitroglycerin topical. ABG - pH of 7.23. pO2 - 258. pCO2 45. HCO3 low at 18 on 60% I evaluated the patient in the ICU. Patient's respiratory failure seems to be secondary to combination of pneumonia COPD exacerbation and underlying CHF. However with probable pneumonia and sepsis (leukocytosis, hypothermia, bilateral interstitial infiltrates) I will hold on further diuresis. Continue gentle hydration with normal saline at 75 ML per hour. IV Solu-Medrol and breathing treatments. Zosyn and azithromycin for pneumonia 12/15/17: Remains intubated sedated. Follows commands on sedation hold. Chest x -ray shows slight interval improvement in the infiltrates. Creatinine stable to slightly down. UO 2.3 L in 24 hours 12/16/17: Extubated yesterday tolerating well. No new chest x-ray. Creatinine remains stable. Urine output adequate. Good oxygen saturation on nasal cannula 12/17/17: Complaints of increasing shortness of breath and abdominal pain with nausea and vomiting. Patient was kept nothing by mouth. Chest x-ray shows bilateral effusions/atelectasis. Stat CT abdomen pelvis showed cecal dilation. ABG showing metabolic acidosis. Bicarbonate infusion started. 12/18/17: Clinically improved, breathing comfortably on nasal cannula. KUB does not show any colon Dilation. Having bowel movements. We'll repeat ABG to follow-up acidosis. DC IV bicarbonate infusion continue Lasix 12-21 S/P EGD and colonoscopy --> Mild gastritis mostly in the antrum biopsy was done 1 cm polyp in the transverse colon removed by snare. Small polyp in the sigmoid and ablated with heat. Small internal hemorrhoid Normal colonoscopy otherwise. No sign of active bleeding or old blood. Anemia likely secondary to chronic disease and decreased renal function. 12-23 RESTARTED ON ELIQUIS YESTERDAY DW RN AND PT NEEDS WALK TEST TOMORROW MAY LEAVE AMA IF SHE IS NOT DISCHARGED TOMORROW EXPLAINED THAT IS NOT IN HER BEST INTEREST IF SHE DOES THAT Objective Vitals Vital Signs Date Time Temp Pulse Resp B/P (MAP) Pulse Ox O2 Delivery O2 Flow Rate FiO2 12/23/17 12:03 98.4 60 21 173/75 (107) 95 12/23/17 12:00 56 12/23/17 08:10 Room Air 12/23/17 08:04 98.7 66 21 205/93 (130) 97 12/23/17 08:00 68 12/23/17 04:00 98.8 59 20 170/81 (110) 95 12/23/17 00:00 98.5 65 20 161/78 (105) 95 12/22/17 20:00 98.9 61 20 156/70 (98) 97 12/22/17 20:00 60 12/22/17 18:56 Room Air 12/22/17 16:00 66 12/22/17 16:00 98.8 65 21 144/66 (92) 93 I/O 12/22/17 12/22/17 12/22/17 12/23/17 12/23/17 12/23/17 07:00 15:00 23:00 07:00 15:00 23:00 Intake Total 709 ml 240 ml Output Total 400 ml 800 ml Balance 309 ml -560 ml Intake Oral 0 ml 240 ml IV Total 709 ml Output Urine Total 400 ml 800 ml # Voids 3 3 # Bowel Movements 2 0 1 Result Diagram: 12/23/17 1340 12/23/17 1340 Other Results Laboratory Tests Test 12/21/17 06:22 12/22/17 05:25 12/22/17 14:06 12/23/17 09:15 Hemoglobin 8.2 GM/DL Hematocrit 24.2 % Activated Partial Thromboplast Time 58.1 SEC 79.4 SEC 39.9 SEC Blood Urea Nitrogen 63 MG/DL 63 MG/DL Creatinine 3.14 MG/DL 2.94 MG/DL Random Glucose 105 MG/DL 95 MG/DL Calcium Level 7.9 MG/DL 7.8 MG/DL Sodium Level 147 MEQ/L 146 MEQ/L Potassium Level 3.3 MEQ/L 3.4 MEQ/L Chloride Level 109 MEQ/L 109 MEQ/L Carbon Dioxide Level 26.6 MEQ/L 27.7 MEQ/L Anion Gap 11 MEQ/L 9 MEQ/L Estimat Glomerular Filtration Rate 15 ML/MIN 16 ML/MIN Magnesium Level 1.6 MG/DL Iron Level 110 MCG/DL Total Iron Binding Capacity 106 MCG/DL Ferritin 1319 NG/ML Total Protein 5.1 GM/DL Vitamin B12 Level 615 PG/ML 25-Hydroxy Vitamin D Total 13.9 ng/ML Parathyroid Hormone (Intact) 365.3 PG/ML Urine Eosinophils NONE SEEN /HPF Urine Random Creatinine LESS THAN 13 MG/DL Urine Random Total Protein 126 MG/DL Urine Protein/Creatinine Ratio 9.00 Test 12/23/17 13:40 White Blood Count 12.1 TH/MM3 Red Blood Count 2.89 MIL/MM3 Hemoglobin 8.9 GM/DL Hematocrit 26.6 % Mean Corpuscular Volume 92.1 FL Mean Corpuscular Hemoglobin 31.0 PG Mean Corpuscular Hemoglobin Concent 33.6 % Red Cell Distribution Width 14.3 % Platelet Count 191 TH/MM3 Mean Platelet Volume 8.2 FL Neutrophils (%) (Auto) 95.9 % Lymphocytes (%) (Auto) 3.1 % Monocytes (%) (Auto) 0.9 % Eosinophils (%) (Auto) 0.1 % Basophils (%) (Auto) 0.0 % Neutrophils # (Auto) 11.6 TH/MM3 Lymphocytes # (Auto) 0.4 TH/MM3 Monocytes # (Auto) 0.1 TH/MM3 Eosinophils # (Auto) 0.0 TH/MM3 Basophils # (Auto) 0.0 TH/MM3 CBC Comment DIFF FINAL Differential Comment Blood Urea Nitrogen 54 MG/DL Creatinine 2.53 MG/DL Random Glucose 112 MG/DL Total Protein 5.4 GM/DL Albumin 2.3 GM/DL Calcium Level 7.7 MG/DL Phosphorus Level 3.6 MG/DL Magnesium Level 1.6 MG/DL Alkaline Phosphatase 65 U/L Aspartate Amino Transf (AST/SGOT) 29 U/L Alanine Aminotransferase (ALT/SGPT) 31 U/L Total Bilirubin 0.2 MG/DL Sodium Level 145 MEQ/L Potassium Level 3.7 MEQ/L Chloride Level 111 MEQ/L Carbon Dioxide Level 24.9 MEQ/L Anion Gap 9 MEQ/L Estimat Glomerular Filtration Rate 19 ML/MIN Free Thyroxine 0.70 NG/DL Thyroid Stimulating Hormone 3rd Gen 2.120 uIU/ML Imaging Last Impressions Renal Ultrasound 12/22/17 0000 Signed Impressions: Service Date/Time: Friday, December 22, 2017 10:41 - CONCLUSION: Small echogenic kidneys without hydronephrosis. Hector Maya MD FACR Foot X-Ray 12/19/17 1423 Signed Impressions: Service Date/Time: Tuesday, December 19, 2017 15:38 - CONCLUSION: 1. Diffuse osseous demineralization with no obvious acute fracture. 2. Osseous pins secure the medial malleolus. 3. Marked degenerative changes at the tibiotalar joint Ashish Lino MD Chest X-Ray 12/18/17 0600 Signed Impressions: Service Date/Time: Monday, December 18, 2017 03:08 - CONCLUSION: Persistent left lower lung consolidation and new small to moderate size left pleural effusion. Stable non-consolidative opacity lateral right. Angelito Rossi MD Abdomen X-Ray 12/18/17 0600 Signed Impressions: Service Date/Time: Monday, December 18, 2017 03:14 - CONCLUSION: No dilated loops of small or large bowel. Left lower lung consolidation. Angelito Rossi MD Abdomen/Pelvis CT 12/17/17 0000 Signed Impressions: Service Date/Time: Sunday, December 17, 2017 12:58 - CONCLUSION: 1. The cecum appears distended not present on the prior examination filled with fluid and stool of uncertain etiology could be due to ileus without signs of ischemic bowel for technique, however early ischemic bowel could be unremarkable by CT. Significant atherosclerotic calcifications of aorta and multiple visceral arteries with high-grade stenosis of the left common iliac artery and stenosis at the origin of the SMA and renal arteries are not excluded. 2. Bilateral pleural effusions and bibasilar consolidation or compressive collapse. 3. Dilated pancreatic duct and chronic calcifications related to chronic pancreatitis. Son Rivera MD Head CT 12/14/17 0000 Signed Impressions: Service Date/Time: November 06:08 - CONCLUSION: 1. No acute abnormality seen. 2. Mild atrophy. Chaim Lin MD Objective Remarks GENERAL: Awake alert talkative and cooperative- oriented 3 SKIN: Warm and dry. HEAD: Atraumatic. Normocephalic. EYES: Pupils equal and round. No scleral icterus. No injection or drainage. Extraocular muscles intact ENT: No nasal bleeding or discharge. Mucous membranes pink and moist. Tongue is midline NECK: Trachea midline. No JVD. Supple CARDIOVASCULAR: Regular rate and rhythm. S1 and S2 no S3 or S4 RESPIRATORY: No accessory muscle use. Few scattered rhonchi. Breath sounds equal bilaterally. GASTROINTESTINAL: Abdomen soft, non-tender, nondistended. Hepatic and splenic margins not palpable. MUSCULOSKELETAL: Extremities without clubbing, cyanosis, or edema. No obvious deformities. NEUROLOGICAL: Awake and alert. No obvious cranial nerve deficits. Motor grossly within normal limits. 4 out of 5 muscle strength in the arms and legs. Normal speech. PSYCHIATRIC: Appropriate mood and affect; insight and judgment slightly ABnormal. Procedures intubation. (12/22) S/P EGD and colonoscopy yesterday --> Mild gastritis mostly in the antrum biopsy was done 1 cm polyp in the transverse colon removed by snare. Small polyp in the sigmoid and ablated with heat. Small internal hemorrhoid Normal colonoscopy otherwise. No sign of active bleeding or old blood. Anemia likely secondary to chronic disease and decreased renal function Medications and IVs Current Medications Albuterol/ Ipratropium (Duoneb Neb) 1 ampule Q15M INH Last administered on 12/14at 05:13; Start 12/14/17 at 05:00; Stop 12/14/17 at 05:31; Status DC Methylprednisolone Sodium Succinate (SoluMEDROL INJ) 125 mg ONCE ONCE IV PUSH Last administered on 12/14/17at 05:26; Start 12/14/17 at 05:00; Stop 12/14/17 at 05:01; Status DC Propofol 100 ml @ 0 mls/hr TITRATE PRN IV SEDATION Last administered on at 06:45; Start 12/14/17 at 05:45; Stop 12/17/17 at 11:26; Status DC Furosemide (Lasix Inj) 40 mg ONCE ONCE IV PUSH Last administered on 12/14/17at 06:05; Start 12/14/17 at 05:45; Stop 12/14/17 at 05:46; Status DC Nitroglycerin (Nitroglycerin 2% Oint) 1 inch ONCE ONCE TOPICAL Last administered on 12/14/17at 06:05; Start 12/14/17 at 05:45; Stop 12/14/17 at 05:46 ; Status DC Nitroglycerin/ Dextrose 250 ml @ 0 mls/hr TITRATE ONCE IV Last administered on 12/14/17at 07:03; Start 12/14/17 at 06:45; Stop 12/14/17 at 06:46; Status DC Methylprednisolone Sodium Succinate (SoluMEDROL INJ) 60 mg Q8HR IV PUSH Last administered on 12/16/17at 13:50; Start 12/14/17 at 14:00; Stop 12/16/17 at 14:50 ; Status DC Piperacillin Sod/ Tazobactam Sod 50 ml @ 100 mls/hr Q8H IV Last administered on 12/20/17at 00:54; Start 12/14/17 at 09:00; Stop 12/20/17 at 09:13; Status DC Azithromycin 500 mg/Sodium Chloride 250 ml @ 250 mls/hr Q24H IV Last administered on 12/20/17at 08:18; Start 12/14/17 at 08:00; Stop 12/20/17 at 09:13 ; Status DC Sodium Chloride (NS Flush) 2 ml UNSCH PRN IV FLUSH FLUSH AFTER USING IV ACCESS Last administered on 12/20/17at 04:26; Start 12/14/17 at 07:15 Sodium Chloride (NS Flush) 2 ml BID IV FLUSH Last administered on 12/23/17at 08: 36; Start 12/14/17 at 09:00 Albuterol/ Ipratropium (Duoneb Neb) 1 ampule Q4HR NEB NEB Last administered on 12/17/17at 08:00; Start 12/14/17 at 08:00; Stop 12/17/17 at 11:00; Status DC Albuterol Sulfate (Albuterol Neb) 2.5 mg Q4HR NEB PRN INH SHORTNESS OF BREATH; Start 12/14/17 at 07:15 Chlorhexidine Gluconate (Peridex 0.12% Liq) 15 ml BID@08,20 MT Last administered on 12/14/17at 20:00; Start 12/14/17 at 08:00 Famotidine (Pepcid Inj) 20 mg Q12HR IV PUSH Last administered on 12/16/17at 08: 16; Start 12/14/17 at 09:00; Stop 12/16/17 at 08:39; Status DC Miscellaneous Information 1 [id number] ; Start 12/14/17 at 07:15 Chlorhexidine Gluconate (Chlorhexidine 2% Cloth) Taper DAILY@04 TOP Last administered on 12/18/17at 03:33; Start 12/15/17 at 04:00; Stop 12/11/18 at 03:59 Chlorhexidine Gluconate (Chlorhexidine 2% Cloth) 3 pack UNSCH PRN TOP HYGIENIC CARE; Start 12/14/17 at 07:15 Labetalol HCl (Trandate Inj) 20 mg ONCE ONCE IV PUSH Last administered on 12/14at 15:33; Start 12/14/17 at 14:30; Stop 12/14/17 at 14:41; Status DC Labetalol HCl (Trandate Inj) 20 mg Q4H PRN IV PUSH SYS BP GREATER THAN 160 MMHG Last administered on 12/18/17at 22:55; Start 12/14/17 at 13:15 Amlodipine Besylate (Norvasc) 5 mg DAILY PO Last administered on 12/16/17at 08: 16; Start 12/14/17 at 14:30; Stop 12/16/17 at 14:49; Status DC Apixaban (Eliquis) 5 mg BID PO ; Start 12/14/17 at 13:30; Status UNV Clopidogrel Bisulfate (Plavix) 75 mg DAILY PO Last administered on 12/23/17at 08 :35; Start 12/15/17 at 09:00 Hydroxychloroquine Sulfate (Plaquenil) 200 mg DAILY PO Last administered on at 09:13; Start 12/15/17 at 09:00 Metoprolol Tartrate (Lopressor) 50 mg Q12HR PO Last administered on 12/16/17at 08:15; Start 12/14/17 at 15:00; Stop 12/16/17 at 14:50; Status DC Ferrous Sulfate (Ferrous Sulfate) 325 mg DAILY PO Last administered on at 08:36; Start 12/15/17 at 09:00 Sodium Chloride 1,000 ml @ 75 mls/hr [id number] IV Last administered on at 06:46; Start 12/14/17 at 15:00; Stop 12/17/17 at 11:26; Status DC Heparin Sodium/ Dextrose 250 ml @ 7 mls/hr TITRATE PRN IV Coagulation Management Last administered on 12/21/17at 19:11; Start 12/14/17 at 15:45; Stop 12/22/17 at 17:00; Status DC Hydralazine HCl (Apresoline Inj) 20 mg STK-MED ONCE .ROUTE Last administered on 12/15/17at 11:37; Start 12/15/17 at 11:35; Stop 12/15/17 at 11:36; Status DC Hydralazine HCl (Apresoline Inj) 20 mg NOW ONCE IV PUSH ; Start 12/15/17 at 11: 37; Stop 12/15/17 at 12:14; Status DC Hydralazine HCl (Apresoline Inj) 20 mg Q4H PRN IV PUSH SBP > 160 MMHG Last administered on 12/21/17at 04:46; Start 12/15/17 at 16:00 Sodium Bicarbonate (Sodium Bicarbonate 8.4% Inj) 50 meq STK-MED ONCE .ROUTE Last administered on 12/15/17at 17:46; Start 12/15/17 at 17:40; Stop 12/15/17 at 17:41; Status DC Sodium Bicarbonate (Sodium Bicarbonate 8.4% Inj) 100 meq NOW ONCE IV PUSH ; Start 12/15/17 at 18:00; Stop 12/15/17 at 18:01; Status DC Acetaminophen (Tylenol) 650 mg Q6H PRN PO HEADACHE OR TEMP > 101 F Last administered on 12/15/17at 23:57; Start 12/15/17 at 23:45 Famotidine (Pepcid Inj) 10 mg Q12HR IV PUSH Last administered on 12/23/17at 08: 35; Start 12/16/17 at 21:00 Potassium Chloride (KCl) 40 meq ONCE ONCE PO Last administered on 12/16/17at 10 :23; Start 12/16/17 at 10:00; Stop 12/16/17 at 10:01; Status DC Mirtazapine (Remeron) 30 mg HS PO Last administered on 12/22/17at 21:29; Start 12/16/17 at 21:00 Sertraline HCl (Zoloft) 50 mg DAILY PO Last administered on 12/23/17at 08:36; Start 12/17/17 at 09:00 Amlodipine Besylate (Norvasc) 10 mg DAILY PO Last administered on 12/23/17at 08: 35; Start 12/17/17 at 09:00 Methylprednisolone Sodium Succinate (SoluMEDROL INJ) 40 mg Q12HR IV PUSH Last administered on 12/20/17at 08:28; Start 12/16/17 at 21:00; Stop 12/20/17 at 09:13 ; Status DC Metoprolol Tartrate (Lopressor) 50 mg Q8H PO Last administered on 12/23/17at 08: 36; Start 12/16/17 at 16:00 Budesonide/ Formoterol Fumarate (Symbicort 160-4.5 Mcg Inh) 2 puff Q12HR INH Last administered on 12/23/17at 08:37; Start 12/16/17 at 21:00 Ondansetron HCl (Zofran Inj) 4 mg NOW ONCE IV Last administered on 12/17/17at 09:48; Start 12/17/17 at 09:45; Stop 12/17/17 at 09:46; Status DC Albuterol/ Ipratropium (Duoneb Neb) 1 ampule Q4HR NEB NEB Last administered on 12/20/17at 20:00; Start 12/17/17 at 12:00; Stop 12/21/17 at 11:59; Status DC Sodium Bicarbonate (Sodium Bicarbonate 8.4% Inj) 100 meq ONCE ONCE IV PUSH Last administered on 12/17/17at 11:36; Start 12/17/17 at 11:30; Stop 12/17/17 at 11:31; Status DC Sodium Bicarbonate 150 meq/Sterile Water 1,000 ml @ 100 mls/hr Q10H IV Last administered on 12/18/17at 08:12; Start 12/17/17 at 13:00; Stop 12/18/17 at 10:11 ; Status DC Iohexol (Omnipaque 350 Inj) 60 ml STK-MED ONCE IVCONTRAST Last administered on 12/17/17at 13:09; Start 12/17/17 at 13:09; Stop 12/17/17 at 13:10; Status DC Metronidazole (Flagyl) 500 mg Q8HR PO Last administered on 12/22/17at 12:58; Start 12/17/17 at 14:00; Stop 12/22/17 at 14:03; Status DC Furosemide (Lasix Inj) 60 mg NOW ONCE IV PUSH Last administered on 12/17/17at 14:16; Start 12/17/17 at 14:15; Stop 12/17/17 at 14:16; Status DC Furosemide (Lasix Inj) 20 mg BID@,18 IV PUSH Last administered on 12/20/17at 08:27; Start 12/17/17 at 18:00; Status Future Hold Potassium Bicarb/ Potassium Chloride (K-Lyte Cl Eff) 25 meq DAILY NG Last administered on 12/19/17at 10:26; Start 12/17/17 at 14:45; Stop 12/20/17 at 09:13 ; Status DC Ondansetron HCl (Zofran Inj) 4 mg Q4H PRN IV PUSH NAUSEA Last administered on at 20:24; Start 12/17/17 at 15:00 Morphine Sulfate (Morphine Inj) 2 mg Q4H PRN IV PAIN 1-10 Last administered on 12/22/17at 01:25; Start 12/17/17 at 16:30 Potassium Chloride (KCl) 40 meq NOW ONCE PO Last administered on 12/18/17at 11: 15; Start 12/18/17 at 11:15; Stop 12/18/17 at 11:16; Status DC Potassium Chloride (KCl) 20 meq ONCE ONCE PO Last administered on 12/19/17at 17 :11; Start 12/19/17 at 14:15; Stop 12/19/17 at 14:16; Status DC Methylprednisolone Sodium Succinate (SoluMEDROL INJ) 20 mg Q12HR IV PUSH Last administered on 12/20/17at 20:24; Start 12/20/17 at 21:00; Stop 12/21/17 at 08:58 ; Status DC Levofloxacin (Levaquin) 500 mg DAILY@1100 PO Last administered on 12/21/17at 12: 00; Start 12/20/17 at 11:00; Stop 12/21/17 at 19:11; Status DC Potassium Chloride (KCl) 30 meq ONCE ONCE PO Last administered on 12/20/17at 10 :31; Start 12/20/17 at 10:00; Stop 12/20/17 at 10:06; Status DC Potassium Chloride (KCl) 20 meq ONCE ONCE PO Last administered on 12/20/17at 13 :30; Start 12/20/17 at 14:00; Stop 12/20/17 at 14:01; Status DC Sodium Chloride 500 ml @ 40 mls/hr [id number] ONCE IV Last administered on at 23:00; Start 12/20/17 at 23:00; Stop 12/21/17 at 11:29; Status DC Nifedipine (Procardia Xl) 30 mg ONCE ONCE PO Last administered on 12/20/17at 10 :30; Start 12/20/17 at 11:00; Stop 12/20/17 at 11:01; Status DC Polyethylene Glycol/ Electrolytes (Colyte Liq) 4,000 ml ONCE ONCE PO Last administered on 12/20/17at 15:29; Start 12/20/17 at 16:00; Stop 12/20/17 at 17:28 ; Status DC Levofloxacin (Levaquin) 250 mg Q48H PO Last administered on 12/22/17at 12:57; Start 12/22/17 at 11:00 Lactated Ringer's 1,000 ml @ 30 mls/hr Q24H PRN IV SEE LABEL COMMENTS Last administered on 12/21/17at 12:30; Start 12/20/17 at 15:00; Stop 12/23/17 at 14:59 ; Status DC Sodium Chloride 500 ml @ 30 mls/hr [id number] PRN IV SEE LABEL COMMENTS; Start at 15:00; Stop 12/23/17 at 14:59; Status DC Metoprolol Tartrate (Lopressor) 25 mg AQUATIC [employer]OR PRN PO SEE LABEL COMMENTS; Start 12/20/17 at 15:00; Stop 12/23/17 at 14:59; Status DC Povidone Iodine (Betadine 5% Antisepsis Kit) 1 applic AQUATIC DIRECTOR PRN EACH NARE SEE LABEL COMMENTS; Start 12/20/17 at 15:00; Stop 12/23/17 at 14:59; Status DC Chlorhexidine Gluconate (Chlorhexidine 2% Cloth) 3 pack AQUATIC DIRECTOR PRN TOPICAL SEE LABEL COMMENTS; Start 12/20/17 at 15:00; Stop 12/23/17 at 14:59; Status DC Polyethylene Glycol (Miralax) 255 gm ONCE ONCE PO ; Start 12/20/17 at 17:30; Stop 12/20/17 at 19:28; Status DC Polyethylene Glycol (Miralax) 255 gm ONCE ONCE PO Last administered on at 19:32; Start 12/20/17 at 18:45; Stop 12/20/17 at 18:46; Status DC Potassium Chloride (KCl) 20 meq ONCE ONCE PO Last administered on 12/21/17at 10 :06; Start 12/21/17 at 09:45; Stop 12/21/17 at 09:46; Status DC Prednisone (Deltasone) 40 mg DAILY PO Last administered on 12/23/17at 08:34; Start 12/21/17 at 09:45 Sodium Chloride 1,000 ml @ 84 mls/hr [id number] IV Last administered on at 05:58; Start 12/21/17 at 19:00 Hydralazine HCl (Apresoline) 10 mg Q8HR PO Last administered on 12/23/17at 13:13 ; Start 12/21/17 at 22:00 Diphenhydramine HCl (Benadryl) 50 mg HS PRN PO INSOMNIA Last administered on at 21:35; Start 12/22/17 at 10:00 Apixaban (Eliquis) 5 mg BID PO Last administered on 12/23/17at 08:35; Start at 21:00 Potassium Chloride (KCl) 20 meq ONCE ONCE PO Last administered on 12/22/17at 16 :57; Start 12/22/17 at 16:30; Stop 12/22/17 at 16:31; Status DC Calcium Carbonate (Oscal) 500 mg DAILY PO Last administered on 12/23/17at 08:36 ; Start 12/22/17 at 16:30 Ergocalciferol (Drisdol) 50,000 units Q7D PO Last administered on 12/22/17at 18: 17; Start 12/22/17 at 17:00 A/P Problem List: (1) Acute hypoxemic respiratory failure ICD Code: J96.01 - Acute respiratory failure with hypoxia Status: Acute (2) Sepsis ICD Code: A41.9 - Sepsis, unspecified organism (3) COPD with acute exacerbation ICD Code: J44.1 - Chronic obstructive pulmonary disease with (acute) exacerbation (4) Pneumonia ICD Code: J18.9 - Pneumonia, unspecified organism Status: Acute (5) CHF exacerbation ICD Code: I50.9 - Heart failure, unspecified Status: Acute (6) Pulmonary hypertension due to COPD ICD Code: I27.23 - Pulmonary hypertension due to lung diseases and hypoxia; J44.9 - Chronic obstructive pulmonary disease, unspecified (7) PAD (peripheral artery disease) ICD Code: I73.9 - Peripheral vascular disease, unspecified Status: Chronic (8) COPD (chronic obstructive pulmonary disease) ICD Code: J44.9 - Chronic obstructive pulmonary disease, unspecified Status: Chronic (9) Chronic anticoagulation ICD Code: Z79.01 - jail (current) use of anticoagulants (10) Anemia ICD Code: D64.9 - Anemia, unspecified Status: Acute (11) HTN (hypertension) ICD Code: I10 - Essential (primary) hypertension Status: Chronic (12) Hx of deep venous thrombosis ICD Code: Z86.718 - Personal history of other venous thrombosis and embolism Status: Chronic (13) CAD (coronary artery disease) ICD Code: I25.10 - Atherosclerotic heart disease of [place] coronary artery without angina pectoris Status: Chronic (14) Rheumatoid arthritis ICD Code: M06.9 - Rheumatoid arthritis, unspecified Status: Chronic (15) CKD (chronic kidney disease) stage 3, GFR 30-59 ml/min ICD Code: N18.3 - Chronic kidney disease, stage 3 (moderate) Status: Chronic Assessment and Plan A/P History depression CT brain -no acute intracranial findings Resumed Sertraline and mirtazapine Pulmonary edema/ fluid overload- has resolved. Coronary artery disease status post stent RCA 05/13 Dr. Moody Hypothermia-resolved Peripheral arterial disease status post lower extremity stenting Hypertension Dyslipidemia PVD Pulmonary hypertension continue to hold IV Lasix today. Continue home medications Plavix resume eliquis. Prev Echocardiogram 09/12 revealed EF around 55%. No regional wall motion abnormality. Normal systolic and diastolic function Metoprolol to 50 q8h and Norvasc to 10 mg daily, holding lisinopril started on Hydralazine continue to monitor BP and adjust the regimen as needed. being followed up by vascular surgery as outpatient. Acute hypoxic respiratory failure-resolved Acute COPD exacerbation Probable pneumonia 50 year tobacco history Albuterol/ipratropium aerosols every 4 hours with albuterol aerosols every 2 hours. continue po steroids. deescalate the antibiotic regimen; started on po levaquin with renal dosing per pharmacy Symbicort every 12 hours failed walk test ; case management consulted for home oxygen. Cecal dilatation GI bleed History of Cholelithiasis, Pancreatitis continue Pepcid monitor H/H evaluated by GI; s/p EGD/ colonoscopy; Mild gastritis mostly in the antrum biopsy was done.1 cm polyp in the transverse colon removed by snare.Small polyp in the sigmoid and ablated with heat. Small internal hemorrhoid.Normal colonoscopy otherwise History of RA Lupus? Hydroxychloroquine 200 mg daily for her underlying rheumatologic disorder SSI Acute on chronic kidney injury hypernatremia hypokalemia History of nephrolithiasis renal function slightly improved. continue to hold lasix for now. continue gentle IV hydration. nephrology consult appreciated. monitor the electrolytes and replace as needed. Monitor urine output Accurate I's and O's Avoid nephrotoxic drugs Normocytic anemia Chronic anticoagulation with Eliquis History of DVTs bilateral lower extremities Continue clopidogrel/resume eliquis. Continue IV Heparin Severe Sepsis-improved Pneumonia Continue antibiotics. Lower extremity ankle and thigh wound ulcers/chronic DVT prophylaxis; back on Eliquis. Discharge Planning dc planning; home with [facility]- needs home oxygen. awaiting renal recovery and improvement in kidney function. might need to stay for another one-two days. Problem Qualifiers (1) Pneumonia: (2) CHF exacerbation: Qualified Codes: I50.9 - Heart failure, unspecified (3) COPD (chronic obstructive pulmonary disease): (4) Anemia: (5) CAD (coronary artery disease): Hector Rivers DO Dec 23, 2017 16:00
--- NOTE | 2017-12-23 18:11 | HHI.NPPN ---
Subjective History of Present Illness The patient is a 72 yo [place] female who presented to this facility on 12/14 via [facility] for acute respiratory failure suspected to have been from COPD and CHF exacerbation. She was initially intubated, but extubated the next day. She has been maintained on IV Lasix since admission with brisk UOP. She developed abdominal pain on 12/[address] with contrast that showed a potential ileus as well as significant atherosclerotic diease in the aorta, visceral arteries, and iliac artery. Renal artery stenosis could not be ruled out. She underwent EGD/colonoscopy this AM and diet has been advanced since the procedure. Her baseline SCr level is 1.2-1.4 as per recently hospital records. States she does have underlying CKD and was under the care of complex care nurse in [place] up until last year when she moved locally to be with her daughter. She has hx of medullary sponge kidney with multiple kidney stones in the past, but nothing in recent years. She also has hx of lupus that she says has been told "skin only" and follows with Dr. Chan locally. On Plaquenil for many years. Denies any NSAID use. She has significant vascular disease s/p peripheral stenting x3, PTCA x1, and DVTs x2 for which she has IVC filter. Does not follow locally with vascular surgeon. Admitting SCr on 12/14 was 1.95 [place] to 1.83 on 12/18 and has worsened to 3.14 at time of consult. Interval History Patient indicating that she is feeling better. She indicated to me that she was leaving the hospital no matter what tomorrow even if she has to leave against medical advise. Review of Systems General General Remarks ROS negative Objective Data Data Vital Signs Date Time Temp Pulse Resp B/P (MAP) Pulse Ox O2 Delivery O2 Flow Rate FiO2 12/23/17 16:04 98.2 61 20 126/60 (82) 98 12/23/17 16:00 60 12/23/17 12:03 98.4 60 21 173/75 (107) 95 12/23/17 12:00 56 12/23/17 08:10 Room Air 12/23/17 08:04 98.7 66 21 205/93 (130) 97 12/23/17 08:00 68 12/23/17 04:00 98.8 59 20 170/81 (110) 95 12/23/17 00:00 98.5 65 20 161/78 (105) 95 12/22/17 20:00 98.9 61 20 156/70 (98) 97 12/22/17 20:00 60 12/22/17 18:56 Room Air -: 12/23/17 1340 12/23/17 1340 Physical Exam General Appearance: No Acute Distress Throat Throat Exam: Oral Mucosa [place] & Moist Neck Neck Exam: Neck Supple, Trachea Midline Pulmonary Resp Exam: Clear Bilaterally, Breath Sounds Equal Cardiology CV Exam: Regular, Normal Sinus Rhythm Gastrointestinal/Abdomen GI Exam: Soft, Non-Tender Integumentary Skin Exam: Clear, Warm, Dry Extremeties Extremities Exam: No Edema Neurologic Neuro Exam: Alert, Awake Psychiatric Psych Exam: Appropriate Responses Assessment/Plan Discussed Condition With: Patient Problem List: (1) Acute on chronic kidney failure ICD Codes: N17.9 - Acute kidney failure, unspecified; N18.9 - Chronic kidney disease, unspecified Plan: The patient's creatinine level has improved again slightly today. Her volume status appears to be improved and she is maintaining an adequate oral fluid intake by history and nurse. In view of history of CHF will discontinue IV fluids at this point in time. Would recommend that she take her furosemide post discharge every other day initially with follow-up with primary care physician and complex care nurse post discharge. According to the patient she really has a complex care nurse to see post discharge. As long as renal indices stable or improved tomorrow patient clear for discharge from renal point of view with adequate follow-up as discussed with her. There is mention in CT of abdomen that renal artery stenosis cannot be ruled out among high grade stenosis identified in left iliac artery. This should be followed up as an outpatient. Encouraged to establish with local vascular surgeon given her severe atherosclerotic disease. I would be hard pressed to recommend pursuing a possible diagnosis of renal artery stenosis in this severely debilitated and frail patient is a believe she would be at significant risk for development of complications associated with a renal angiogram and angioplasty. Advise medical management of hypertension as long as blood pressure improving. Doubtful her lupus hx is contributing to her acute event, but does need to be followed closely as outpatient given her proteinuria. Medications should be adjusted for her renal decline. Avoid nephrotoxins such as iodinated contrast dyes and NSAIDs. Avoid gadolinium with eGFR <30 (2) HTN (hypertension) ICD Codes: I10 - Essential (primary) hypertension Status: Chronic Plan: BP improved (3) Hypernatremia ICD Codes: E87.0 - Hyperosmolality and hypernatremia Plan: Improving with hydration (4) Hypokalemia ICD Codes: E87.6 - Hypokalemia Plan: Repletion as ordered (5) Hypocalcemia ICD Codes: E83.51 - Hypocalcemia Plan: Calcium improved. Likely related to Vitamin D deficiency. Start Ergocalciferol (6) Secondary hyperparathyroidism ICD Codes: N25.81 - Secondary hyperparathyroidism of renal origin Plan: Likely related to both vitamin D deficiency as well as of renal origin (7) Anemia ICD Codes: D64.9 - Anemia, unspecified Status: Acute Plan: Appears long standing and related to chronic illness Underwent EGD/colonoscopy this AM Iron levels pending (8) COPD (chronic obstructive pulmonary disease) ICD Codes: J44.9 - Chronic obstructive pulmonary disease, unspecified Status: Chronic (9) CAD (coronary artery disease) ICD Codes: I25.10 - Atherosclerotic heart disease of [place] coronary artery without angina pectoris Status: Chronic Problem Qualifiers (1) Anemia: (2) COPD (chronic obstructive pulmonary disease): (3) CAD (coronary artery disease): Brendan Beavers MD Dec 23, 2017 18:11
[2017-12-23] MEDS: MIRTAZAPINE 15 MG TAB PO SCH (21:01)
[2017-12-23] MEDS: diphenhydrAMINE HCL 50 MG CAP PO PRN (21:03)
[2017-12-24] VITALS: BP 167/75; PULSE 60; PULSE 63; RESP 18; TEMP 99.1; O2SAT 94
[2017-12-24] MEDS: METOPROLOL TARTRATE 50 MG TAB PO SCH ×2 (00:22→08:39)
[2017-12-24] MEDS: CHLORHEXIDINE GLUCONATE 2 % 1 PACK (2 CLOTHS) TOP SCH (03:58)
[2017-12-24 04:00] VITALS: BP 177/76; PULSE 57; PULSE 58; RESP 18; TEMP 98.4; O2SAT 96
[2017-12-24] MEDS: hydrALAZINE HCL 10 MG TAB PO SCH ×2 (05:19→14:15)
[2017-12-24 08:00] VITALS: PULSE 54
[2017-12-24] MEDS: CHLORHEXIDINE 0.12% (ORAL KIT) 15 ML CUP MT SCH (08:00)
[2017-12-24 08:03] VITALS: BP 195/81; PULSE 60; RESP 21; TEMP 98.6; O2SAT 95
[2017-12-24] MEDS: predniSONE 20 MG TAB PO SCH (08:39)
[2017-12-24] MEDS: CLOPIDOGREL 75 MG TAB PO SCH (08:39)
[2017-12-24] MEDS: APIXABAN 5 MG TABLET PO SCH (08:39)
[2017-12-24] MEDS: CALCIUM CARBONATE 1.25 GM (CA 500 MG) TAB PO SCH (08:39)
[2017-12-24] MEDS: FAMOTIDINE 20 MG/2 ML VIAL IV PUSH SCH (08:39)
[2017-12-24] MEDS: FERROUS SULFATE 325 MG (65 MG ELEMENTAL IRON) TAB PO SCH (08:39)
[2017-12-24] MEDS: SERTRALINE HCL 50 MG TAB PO SCH (08:39)
[2017-12-24] MEDS: HYDROXYCHLOROQUINE SULFATE 200 MG TAB PO SCH (08:39)
[2017-12-24] MEDS: BUDESONIDE-FORMOTEROL 160/4.5 MCG INHALER INH SCH (08:40)
[2017-12-24] MEDS: SODIUM CHLORIDE 0.9% FLUSH 10 ML FLUSH IV FLUSH SCH (08:40)
[2017-12-24 10:49] LABS: HEMOGLOBIN A1C 4.5 % (4.3-6.0)
[2017-12-24] MEDS: LEVOFLOXACIN 250 MG TAB PO SCH (11:47)
[2017-12-24 12:00] VITALS: PULSE 60
[2017-12-24 12:03] VITALS: BP 149/66; PULSE 61; RESP 20; TEMP 98.5; O2SAT 93
--- NOTE | 2017-12-24 14:03 | HHI.PR ---
Subjective Remarks Patient is a 72-year-old female with past medical history of CAD s/p stent 05/13 , diastolic heart failure, COPD, lower ext DVTs on anticoagulation with Eliquis , PAD, lupus, depression, and hypertension was brought in by [facility]. Patient had Oxygen saturation was 70s on room air as per [facility]. Despite breathing treatments patient continued to deteriorate with respiratory rate in 50s and hypoxemic and patient was intubated by [facility] after Ativan 4mg IV and 20mg of etomidate. In the ER patient was evaluated by Dr. Maguire. Received Solu-Medrol and breathing treatments, also IV Lasix 40 mg 1. Chest x-ray showed Hyperinflated lungs with diffuse increased interstitial markings related to edema. Pt was also hypothermic at 93, WBC 11.7. BUN/creatinine elevated at 48/ 1.95 baseline 1.3 to 1.6. Pt given Lasix 40mg IV and Thompson inserted. Also sedated on propofol drip and given nitroglycerin topical. ABG - pH of 7.23. pO2 - 258. pCO2 45. HCO3 low at 18 on 60% I evaluated the patient in the ICU. Patient's respiratory failure seems to be secondary to combination of pneumonia COPD exacerbation and underlying CHF. However with probable pneumonia and sepsis (leukocytosis, hypothermia, bilateral interstitial infiltrates) I will hold on further diuresis. Continue gentle hydration with normal saline at 75 ML per hour. IV Solu-Medrol and breathing treatments. Zosyn and azithromycin for pneumonia 12/15/17: Remains intubated sedated. Follows commands on sedation hold. Chest x -ray shows slight interval improvement in the infiltrates. Creatinine stable to slightly down. UO 2.3 L in 24 hours 12/16/17: Extubated yesterday tolerating well. No new chest x-ray. Creatinine remains stable. Urine output adequate. Good oxygen saturation on nasal cannula 12/17/17: Complaints of increasing shortness of breath and abdominal pain with nausea and vomiting. Patient was kept nothing by mouth. Chest x-ray shows bilateral effusions/atelectasis. Stat CT abdomen pelvis showed cecal dilation. ABG showing metabolic acidosis. Bicarbonate infusion started. 12/18/17: Clinically improved, breathing comfortably on nasal cannula. KUB does not show any colon Dilation. Having bowel movements. We'll repeat ABG to follow-up acidosis. DC IV bicarbonate infusion continue Lasix 12-21 S/P EGD and colonoscopy --> Mild gastritis mostly in the antrum biopsy was done 1 cm polyp in the transverse colon removed by snare. Small polyp in the sigmoid and ablated with heat. Small internal hemorrhoid Normal colonoscopy otherwise. No sign of active bleeding or old blood. Anemia likely secondary to chronic disease and decreased renal function. 12-23 RESTARTED ON ELIQUIS YESTERDAY DW RN AND PT NEEDS WALK TEST TOMORROW MAY LEAVE AMA IF SHE IS NOT DISCHARGED TOMORROW EXPLAINED THAT IS NOT IN HER BEST INTEREST IF SHE DOES THAT 12-24 REFUSED LABS LABS PENDING WILL DC TO HOME TODAY PASSED WALK TEST NO NEED FOR OXYGEN DC TO HOME TODAY Objective Vitals Vital Signs Date Time Temp Pulse Resp B/P (MAP) Pulse Ox O2 Delivery O2 Flow Rate FiO2 12/24/17 12:03 98.5 61 20 149/66 (93) 93 12/24/17 08:03 98.6 60 21 195/81 (119) 95 12/24/17 04:00 Room Air 12/24/17 04:00 58 12/24/17 04:00 98.4 57 18 177/76 (109) 96 12/24/17 00:00 63 12/24/17 00:00 99.1 60 18 167/75 (105) 94 12/24/17 00:00 Room Air 12/23/17 20:00 Room Air 12/23/17 20:00 56 12/23/17 20:00 99.5 63 18 129/61 (83) 92 12/23/17 16:04 98.2 61 20 126/60 (82) 98 12/23/17 16:00 60 I/O 12/23/17 12/23/17 12/23/17 12/24/17 12/24/17 12/24/17 07:00 15:00 23:00 07:00 15:00 23:00 Intake Total 140 ml Balance 140 ml Intake Oral 140 ml # Voids 3 4 11 # Bowel Movements 1 1 Result Diagram: 12/23/17 1340 12/23/17 1340 Other Results Laboratory Tests Test 12/22/17 05:25 12/22/17 14:06 12/23/17 09:15 12/23/17 13:40 Activated Partial Thromboplast Time 79.4 SEC 39.9 SEC Blood Urea Nitrogen 63 MG/DL 54 MG/DL Creatinine 2.94 MG/DL 2.53 MG/DL Random Glucose 95 MG/DL 112 MG/DL Calcium Level 7.8 MG/DL 7.7 MG/DL Magnesium Level 1.6 MG/DL 1.6 MG/DL Sodium Level 146 MEQ/L 145 MEQ/L Potassium Level 3.4 MEQ/L 3.7 MEQ/L Chloride Level 109 MEQ/L 111 MEQ/L Carbon Dioxide Level 27.7 MEQ/L 24.9 MEQ/L Anion Gap 9 MEQ/L 9 MEQ/L Estimat Glomerular Filtration Rate 16 ML/MIN 19 ML/MIN Iron Level 110 MCG/DL Total Iron Binding Capacity 106 MCG/DL Ferritin 1319 NG/ML Total Protein 5.1 GM/DL 5.4 GM/DL Vitamin B12 Level 615 PG/ML 25-Hydroxy Vitamin D Total 13.9 ng/ML Parathyroid Hormone (Intact) 365.3 PG/ML Urine Eosinophils NONE SEEN /HPF Urine Random Creatinine LESS THAN 13 MG/DL Urine Random Total Protein 126 MG/DL Urine Protein/Creatinine Ratio 9.00 White Blood Count 12.1 TH/MM3 Red Blood Count 2.89 MIL/MM3 Hemoglobin 8.9 GM/DL Hematocrit 26.6 % Mean Corpuscular Volume 92.1 FL Mean Corpuscular Hemoglobin 31.0 PG Mean Corpuscular Hemoglobin Concent 33.6 % Red Cell Distribution Width 14.3 % Platelet Count 191 TH/MM3 Mean Platelet Volume 8.2 FL Neutrophils (%) (Auto) 95.9 % Lymphocytes (%) (Auto) 3.1 % Monocytes (%) (Auto) 0.9 % Eosinophils (%) (Auto) 0.1 % Basophils (%) (Auto) 0.0 % Neutrophils # (Auto) 11.6 TH/MM3 Lymphocytes # (Auto) 0.4 TH/MM3 Monocytes # (Auto) 0.1 TH/MM3 Eosinophils # (Auto) 0.0 TH/MM3 Basophils # (Auto) 0.0 TH/MM3 CBC Comment DIFF FINAL Differential Comment Albumin 2.3 GM/DL Phosphorus Level 3.6 MG/DL Alkaline Phosphatase 65 U/L Aspartate Amino Transf (AST/SGOT) 29 U/L Alanine Aminotransferase (ALT/SGPT) 31 U/L Total Bilirubin 0.2 MG/DL Hemoglobin A1c 4.5 % Free Thyroxine 0.70 NG/DL Thyroid Stimulating Hormone 3rd Gen 2.120 uIU/ML Imaging Last Impressions Renal Ultrasound 12/22/17 0000 Signed Impressions: Service Date/Time: Friday, December 22, 2017 10:41 - CONCLUSION: Small echogenic kidneys without hydronephrosis. Hector Maya MD FACR Foot X-Ray 12/19/17 1423 Signed Impressions: Service Date/Time: Tuesday, December 19, 2017 15:38 - CONCLUSION: 1. Diffuse osseous demineralization with no obvious acute fracture. 2. Osseous pins secure the medial malleolus. 3. Marked degenerative changes at the tibiotalar joint Ashish Lino MD Chest X-Ray 12/18/17 0600 Signed Impressions: Service Date/Time: Monday, December 18, 2017 03:08 - CONCLUSION: Persistent left lower lung consolidation and new small to moderate size left pleural effusion. Stable non-consolidative opacity lateral right. Angelito Rossi MD Abdomen X-Ray 12/18/17 0600 Signed Impressions: Service Date/Time: Monday, December 18, 2017 03:14 - CONCLUSION: No dilated loops of small or large bowel. Left lower lung consolidation. Angelito Rossi MD Abdomen/Pelvis CT 12/17/17 0000 Signed Impressions: Service Date/Time: Sunday, December 17, 2017 12:58 - CONCLUSION: 1. The cecum appears distended not present on the prior examination filled with fluid and stool of uncertain etiology could be due to ileus without signs of ischemic bowel for technique, however early ischemic bowel could be unremarkable by CT. Significant atherosclerotic calcifications of aorta and multiple visceral arteries with high-grade stenosis of the left common iliac artery and stenosis at the origin of the SMA and renal arteries are not excluded. 2. Bilateral pleural effusions and bibasilar consolidation or compressive collapse. 3. Dilated pancreatic duct and chronic calcifications related to chronic pancreatitis. Son Rivera MD Head CT 12/14/17 0000 Signed Impressions: Service Date/Time: November 06:08 - CONCLUSION: 1. No acute abnormality seen. 2. Mild atrophy. Chaim Lin MD Objective Remarks GENERAL: Awake alert talkative and cooperative- oriented 3 SKIN: Warm and dry. HEAD: Atraumatic. Normocephalic. EYES: Pupils equal and round. No scleral icterus. No injection or drainage. Extraocular muscles intact ENT: No nasal bleeding or discharge. Mucous membranes pink and moist. Tongue is midline NECK: Trachea midline. No JVD. Supple CARDIOVASCULAR: Regular rate and rhythm. S1 and S2 no S3 or S4 RESPIRATORY: No accessory muscle use. Few scattered rhonchi. Breath sounds equal bilaterally. GASTROINTESTINAL: Abdomen soft, non-tender, nondistended. Hepatic and splenic margins not palpable. MUSCULOSKELETAL: Extremities without clubbing, cyanosis, or edema. No obvious deformities. NEUROLOGICAL: Awake and alert. No obvious cranial nerve deficits. Motor grossly within normal limits. 4 out of 5 muscle strength in the arms and legs. Normal speech. PSYCHIATRIC: Appropriate mood and affect; insight and judgment slightly ABnormal. Procedures intubation. (12/22) S/P EGD and colonoscopy yesterday --> Mild gastritis mostly in the antrum biopsy was done 1 cm polyp in the transverse colon removed by snare. Small polyp in the sigmoid and ablated with heat. Small internal hemorrhoid Normal colonoscopy otherwise. No sign of active bleeding or old blood. Anemia likely secondary to chronic disease and decreased renal function Medications and IVs Current Medications Albuterol/ Ipratropium (Duoneb Neb) 1 ampule Q15M INH Last administered on 12/14at 05:13; Start 12/14/17 at 05:00; Stop 12/14/17 at 05:31; Status DC Methylprednisolone Sodium Succinate (SoluMEDROL INJ) 125 mg ONCE ONCE IV PUSH Last administered on 12/14/17at 05:26; Start 12/14/17 at 05:00; Stop 12/14/17 at 05:01; Status DC Propofol 100 ml @ 0 mls/hr TITRATE PRN IV SEDATION Last administered on at 06:45; Start 12/14/17 at 05:45; Stop 12/17/17 at 11:26; Status DC Furosemide (Lasix Inj) 40 mg ONCE ONCE IV PUSH Last administered on 12/14/17at 06:05; Start 12/14/17 at 05:45; Stop 12/14/17 at 05:46; Status DC Nitroglycerin (Nitroglycerin 2% Oint) 1 inch ONCE ONCE TOPICAL Last administered on 12/14/17at 06:05; Start 12/14/17 at 05:45; Stop 12/14/17 at 05:46 ; Status DC Nitroglycerin/ Dextrose 250 ml @ 0 mls/hr TITRATE ONCE IV Last administered on 12/14/17at 07:03; Start 12/14/17 at 06:45; Stop 12/14/17 at 06:46; Status DC Methylprednisolone Sodium Succinate (SoluMEDROL INJ) 60 mg Q8HR IV PUSH Last administered on 12/16/17at 13:50; Start 12/14/17 at 14:00; Stop 12/16/17 at 14:50 ; Status DC Piperacillin Sod/ Tazobactam Sod 50 ml @ 100 mls/hr Q8H IV Last administered on 12/20/17at 00:54; Start 12/14/17 at 09:00; Stop 12/20/17 at 09:13; Status DC Azithromycin 500 mg/Sodium Chloride 250 ml @ 250 mls/hr Q24H IV Last administered on 12/20/17at 08:18; Start 12/14/17 at 08:00; Stop 12/20/17 at 09:13 ; Status DC Sodium Chloride (NS Flush) 2 ml UNSCH PRN IV FLUSH FLUSH AFTER USING IV ACCESS Last administered on 12/20/17at 04:26; Start 12/14/17 at 07:15 Sodium Chloride (NS Flush) 2 ml BID IV FLUSH Last administered on 12/24/17at 08: 40; Start 12/14/17 at 09:00 Albuterol/ Ipratropium (Duoneb Neb) 1 ampule Q4HR NEB NEB Last administered on 12/17/17at 08:00; Start 12/14/17 at 08:00; Stop 12/17/17 at 11:00; Status DC Albuterol Sulfate (Albuterol Neb) 2.5 mg Q4HR NEB PRN INH SHORTNESS OF BREATH; Start 12/14/17 at 07:15 Chlorhexidine Gluconate (Peridex 0.12% Liq) 15 ml BID@08,20 MT Last administered on 12/14/17at 20:00; Start 12/14/17 at 08:00 Famotidine (Pepcid Inj) 20 mg Q12HR IV PUSH Last administered on 12/16/17at 08: 16; Start 12/14/17 at 09:00; Stop 12/16/17 at 08:39; Status DC Miscellaneous Information 1 [id number] ; Start 12/14/17 at 07:15 Chlorhexidine Gluconate (Chlorhexidine 2% Cloth) Taper DAILY@04 TOP Last administered on 12/18/17at 03:33; Start 12/15/17 at 04:00; Stop 12/11/18 at 03:59 Chlorhexidine Gluconate (Chlorhexidine 2% Cloth) 3 pack UNSCH PRN TOP HYGIENIC CARE; Start 12/14/17 at 07:15 Labetalol HCl (Trandate Inj) 20 mg ONCE ONCE IV PUSH Last administered on 12/14at 15:33; Start 12/14/17 at 14:30; Stop 12/14/17 at 14:41; Status DC Labetalol HCl (Trandate Inj) 20 mg Q4H PRN IV PUSH SYS BP GREATER THAN 160 MMHG Last administered on 12/18/17at 22:55; Start 12/14/17 at 13:15 Amlodipine Besylate (Norvasc) 5 mg DAILY PO Last administered on 12/16/17at 08: 16; Start 12/14/17 at 14:30; Stop 12/16/17 at 14:49; Status DC Apixaban (Eliquis) 5 mg BID PO ; Start 12/14/17 at 13:30; Status UNV Clopidogrel Bisulfate (Plavix) 75 mg DAILY PO Last administered on 12/24/17at 08 :39; Start 12/15/17 at 09:00 Hydroxychloroquine Sulfate (Plaquenil) 200 mg DAILY PO Last administered on at 08:39; Start 12/15/17 at 09:00 Metoprolol Tartrate (Lopressor) 50 mg Q12HR PO Last administered on 12/16/17at 08:15; Start 12/14/17 at 15:00; Stop 12/16/17 at 14:50; Status DC Ferrous Sulfate (Ferrous Sulfate) 325 mg DAILY PO Last administered on at 08:39; Start 12/15/17 at 09:00 Sodium Chloride 1,000 ml @ 75 mls/hr [id number] IV Last administered on at 06:46; Start 12/14/17 at 15:00; Stop 12/17/17 at 11:26; Status DC Heparin Sodium/ Dextrose 250 ml @ 7 mls/hr TITRATE PRN IV Coagulation Management Last administered on 12/21/17 19:11; Start 12/14/17 at 15:45; Stop 12/22/17 at 17:00; Status DC Hydralazine HCl (Apresoline Inj) 20 mg STK-MED ONCE .ROUTE Last administered on 12/15/17at 11:37; Start 12/15/17 at 11:35; Stop 12/15/17 at 11:36; Status DC Hydralazine HCl (Apresoline Inj) 20 mg NOW ONCE IV PUSH ; Start 12/15/17 at 11: 37; Stop 12/15/17 at 12:14; Status DC Hydralazine HCl (Apresoline Inj) 20 mg Q4H PRN IV PUSH SBP > 160 MMHG Last administered on 12/21/17at 04:46; Start 12/15/17 at 16:00 Sodium Bicarbonate (Sodium Bicarbonate 8.4% Inj) 50 meq STK-MED ONCE .ROUTE Last administered on 12/15/17at 17:46; Start 12/15/17 at 17:40; Stop 12/15/17 at 17:41; Status DC Sodium Bicarbonate (Sodium Bicarbonate 8.4% Inj) 100 meq NOW ONCE IV PUSH ; Start 12/15/17 at 18:00; Stop 12/15/17 at 18:01; Status DC Acetaminophen (Tylenol) 650 mg Q6H PRN PO HEADACHE OR TEMP > 101 F Last administered on 12/15/17at 23:57; Start 12/15/17 at 23:45 Famotidine (Pepcid Inj) 10 mg Q12HR IV PUSH Last administered on 12/24/17at 08: 39; Start 12/16/17 at 21:00 Potassium Chloride (KCl) 40 meq ONCE ONCE PO Last administered on 12/16/17at 10 :23; Start 12/16/17 at 10:00; Stop 12/16/17 at 10:01; Status DC Mirtazapine (Remeron) 30 mg HS PO Last administered on 12/23/17at 21:01; Start 12/16/17 at 21:00 Sertraline HCl (Zoloft) 50 mg DAILY PO Last administered on 12/24/17at 08:39; Start 12/17/17 at 09:00 Amlodipine Besylate (Norvasc) 10 mg DAILY PO Last administered on 12/24/17at 08: 39; Start 12/17/17 at 09:00 Methylprednisolone Sodium Succinate (SoluMEDROL INJ) 40 mg Q12HR IV PUSH Last administered on 12/20/17at 08:28; Start 12/16/17 at 21:00; Stop 12/20/17 at 09:13 ; Status DC Metoprolol Tartrate (Lopressor) 50 mg Q8H PO Last administered on 12/24/17at 08: 39; Start 12/16/17 at 16:00 Budesonide/ Formoterol Fumarate (Symbicort 160-4.5 Mcg Inh) 2 puff Q12HR INH Last administered on 12/24/17at 08:40; Start 12/16/17 at 21:00 Ondansetron HCl (Zofran Inj) 4 mg NOW ONCE IV Last administered on 12/17/17at 09:48; Start 12/17/17 at 09:45; Stop 12/17/17 at 09:46; Status DC Albuterol/ Ipratropium (Duoneb Neb) 1 ampule Q4HR NEB NEB Last administered on 12/20/17at 20:00; Start 12/17/17 at 12:00; Stop 12/21/17 at 11:59; Status DC Sodium Bicarbonate (Sodium Bicarbonate 8.4% Inj) 100 meq ONCE ONCE IV PUSH Last administered on 12/17/17at 11:36; Start 12/17/17 at 11:30; Stop 12/17/17 at 11:31; Status DC Sodium Bicarbonate 150 meq/Sterile Water 1,000 ml @ 100 mls/hr Q10H IV Last administered on 12/18/17at 08:12; Start 12/17/17 at 13:00; Stop 12/18/17 at 10:11 ; Status DC Iohexol (Omnipaque 350 Inj) 60 ml STK-MED ONCE IVCONTRAST Last administered on 12/17/17at 13:09; Start 12/17/17 at 13:09; Stop 12/17/17 at 13:10; Status DC Metronidazole (Flagyl) 500 mg Q8HR PO Last administered on 12/22/17at 12:58; Start 12/17/17 at 14:00; Stop 12/22/17 at 14:03; Status DC Furosemide (Lasix Inj) 60 mg NOW ONCE IV PUSH Last administered on 12/17/17at 14:16; Start 12/17/17 at 14:15; Stop 12/17/17 at 14:16; Status DC Furosemide (Lasix Inj) 20 mg BID@,18 IV PUSH Last administered on 12/20/17at 08:27; Start 12/17/17 at 18:00; Status Future Hold Potassium Bicarb/ Potassium Chloride (K-Lyte Cl Eff) 25 meq DAILY NG Last administered on 12/19/17at 10:26; Start 12/17/17 at 14:45; Stop 12/20/17 at 09:13 ; Status DC Ondansetron HCl (Zofran Inj) 4 mg Q4H PRN IV PUSH NAUSEA Last administered on at 20:24; Start 12/17/17 at 15:00 Morphine Sulfate (Morphine Inj) 2 mg Q4H PRN IV PAIN 1-10 Last administered on 12/22/17at 01:25; Start 12/17/17 at 16:30 Potassium Chloride (KCl) 40 meq NOW ONCE PO Last administered on 12/18/17at 11: 15; Start 12/18/17 at 11:15; Stop 12/18/17 at 11:16; Status DC Potassium Chloride (KCl) 20 meq ONCE ONCE PO Last administered on 12/19/17at 17 :11; Start 12/19/17 at 14:15; Stop 12/19/17 at 14:16; Status DC Methylprednisolone Sodium Succinate (SoluMEDROL INJ) 20 mg Q12HR IV PUSH Last administered on 12/20/17at 20:24; Start 12/20/17 at 21:00; Stop 12/21/17 at 08:58 ; Status DC Levofloxacin (Levaquin) 500 mg DAILY@1100 PO Last administered on 12/21/17at 12: 00; Start 12/20/17 at 11:00; Stop 12/21/17 at 19:11; Status DC Potassium Chloride (KCl) 30 meq ONCE ONCE PO Last administered on 12/20/17at 10 :31; Start 12/20/17 at 10:00; Stop 12/20/17 at 10:06; Status DC Potassium Chloride (KCl) 20 meq ONCE ONCE PO Last administered on 12/20/17at 13 :30; Start 12/20/17 at 14:00; Stop 12/20/17 at 14:01; Status DC Sodium Chloride 500 ml @ 40 mls/hr [id number] ONCE IV Last administered on at 23:00; Start 12/20/17 at 23:00; Stop 12/21/17 at 11:29; Status DC Nifedipine (Procardia Xl) 30 mg ONCE ONCE PO Last administered on 12/20/17at 10 :30; Start 12/20/17 at 11:00; Stop 12/20/17 at 11:01; Status DC Polyethylene Glycol/ Electrolytes (Colyte Liq) 4,000 ml ONCE ONCE PO Last administered on 12/20/17at 15:29; Start 12/20/17 at 16:00; Stop 12/20/17 at 17:28 ; Status DC Levofloxacin (Levaquin) 250 mg Q48H PO Last administered on 12/24/17at 11:47; Start 12/22/17 at 11:00 Lactated Ringer's 1,000 ml @ 30 mls/hr Q24H PRN IV SEE LABEL COMMENTS Last administered on 12/21/17at 12:30; Start 12/20/17 at 15:00; Stop 12/23/17 at 14:59 ; Status DC Sodium Chloride 500 ml @ 30 mls/hr [id number] PRN IV SEE LABEL COMMENTS; Start at 15:00; Stop 12/23/17 at 14:59; Status DC Metoprolol Tartrate (Lopressor) 25 mg [employer] SPECIALIST PRN PO SEE LABEL COMMENTS; Start 12/20/17 at 15:00; Stop 12/23/17 at 14:59; Status DC Povidone Iodine (Betadine 5% Antisepsis Kit) 1 applic [employer] SPECIALIST PRN EACH NARE SEE LABEL COMMENTS; Start 12/20/17 at 15:00; Stop 12/23/17 at 14:59; Status DC Chlorhexidine Gluconate (Chlorhexidine 2% Cloth) 3 pack [employer] SPECIALIST PRN TOPICAL SEE LABEL COMMENTS; Start 12/20/17 at 15:00; Stop 12/23/17 at 14:59; Status DC Polyethylene Glycol (Miralax) 255 gm ONCE ONCE PO ; Start 12/20/17 at 17:30; Stop 12/20/17 at 19:28; Status DC Polyethylene Glycol (Miralax) 255 gm ONCE ONCE PO Last administered on at 19:32; Start 12/20/17 at 18:45; Stop 12/20/17 at 18:46; Status DC Potassium Chloride (KCl) 20 meq ONCE ONCE PO Last administered on 12/21/17at 10 :06; Start 12/21/17 at 09:45; Stop 12/21/17 at 09:46; Status DC Prednisone (Deltasone) 40 mg DAILY PO Last administered on 12/24/17at 08:39; Start 12/21/17 at 09:45 Sodium Chloride 1,000 ml @ 84 mls/hr [id number] IV Last administered on at 05:58; Start 12/21/17 at 19:00; Stop 12/23/17 at 18:12; Status DC Hydralazine HCl (Apresoline) 10 mg Q8HR PO Last administered on 12/24/17at 05:19 ; Start 12/21/17 at 22:00 Diphenhydramine HCl (Benadryl) 50 mg HS PRN PO INSOMNIA Last administered on at 21:03; Start 12/22/17 at 10:00 Apixaban (Eliquis) 5 mg BID PO Last administered on 12/24/17at 08:39; Start at 21:00 Potassium Chloride (KCl) 20 meq ONCE ONCE PO Last administered on 12/22/17at 16 :57; Start 12/22/17 at 16:30; Stop 12/22/17 at 16:31; Status DC Calcium Carbonate (Oscal) 500 mg DAILY PO Last administered on 12/24/17at 08:39 ; Start 12/22/17 at 16:30 Ergocalciferol (Drisdol) 50,000 units Q7D PO Last administered on 12/22/17at 18: 17; Start 12/22/17 at 17:00 A/P Problem List: (1) Acute hypoxemic respiratory failure ICD Code: J96.01 - Acute respiratory failure with hypoxia Status: Acute (2) Sepsis ICD Code: A41.9 - Sepsis, unspecified organism (3) COPD with acute exacerbation ICD Code: J44.1 - Chronic obstructive pulmonary disease with (acute) exacerbation (4) Pneumonia ICD Code: J18.9 - Pneumonia, unspecified organism Status: Acute (5) CHF exacerbation ICD Code: I50.9 - Heart failure, unspecified Status: Acute (6) Pulmonary hypertension due to COPD ICD Code: I27.23 - Pulmonary hypertension due to lung diseases and hypoxia; J44.9 - Chronic obstructive pulmonary disease, unspecified (7) PAD (peripheral artery disease) ICD Code: I73.9 - Peripheral vascular disease, unspecified Status: Chronic (8) COPD (chronic obstructive pulmonary disease) ICD Code: J44.9 - Chronic obstructive pulmonary disease, unspecified Status: Chronic (9) Chronic anticoagulation ICD Code: Z79.01 - alf (current) use of anticoagulants (10) Anemia ICD Code: D64.9 - Anemia, unspecified Status: Acute (11) HTN (hypertension) ICD Code: I10 - Essential (primary) hypertension Status: Chronic (12) Hx of deep venous thrombosis ICD Code: Z86.718 - Personal history of other venous thrombosis and embolism Status: Chronic (13) CAD (coronary artery disease) ICD Code: I25.10 - Atherosclerotic heart disease of lime coronary artery without angina pectoris Status: Chronic (14) Rheumatoid arthritis ICD Code: M06.9 - Rheumatoid arthritis, unspecified Status: Chronic (15) CKD (chronic kidney disease) stage 3, GFR 30-59 ml/min ICD Code: N18.3 - Chronic kidney disease, stage 3 (moderate) Status: Chronic Assessment and Plan A/P History depression CT brain -no acute intracranial findings Resumed Sertraline and mirtazapine Pulmonary edema/ fluid overload- has resolved. Coronary artery disease status post stent RCA 05/13 Dr. Moody Hypothermia-resolved Peripheral arterial disease status post lower extremity stenting Hypertension Dyslipidemia PVD Pulmonary hypertension continue to hold IV Lasix today. Continue home medications Plavix resume eliquis. Prev Echocardiogram 09/12 revealed EF around 55%. No regional wall motion abnormality. Normal systolic and diastolic function Metoprolol to 50 q8h and Norvasc to 10 mg daily, holding lisinopril started on Hydralazine continue to monitor BP and adjust the regimen as needed. being followed up by vascular surgery as outpatient. Acute hypoxic respiratory failure-resolved Acute COPD exacerbation Probable pneumonia 50 year tobacco history Albuterol/ipratropium aerosols every 4 hours with albuterol aerosols every 2 hours. continue po steroids. deescalate the antibiotic regimen; started on po levaquin with renal dosing per pharmacy Symbicort every 12 hours failed walk test ; case management consulted for home oxygen.- PASSED WALK TEST NOW Cecal dilatation GI bleed History of Cholelithiasis, Pancreatitis continue Pepcid monitor H/H evaluated by GI; s/p EGD/ colonoscopy; Mild gastritis mostly in the antrum biopsy was done.1 cm polyp in the transverse colon removed by snare.Small polyp in the sigmoid and ablated with heat. Small internal hemorrhoid.Normal colonoscopy otherwise History of RA Lupus? Hydroxychloroquine 200 mg daily for her underlying rheumatologic disorder SSI Acute on chronic kidney injury hypernatremia hypokalemia History of nephrolithiasis renal function slightly improved. continue to hold lasix for now. continue gentle IV hydration. nephrology consult appreciated. monitor the electrolytes and replace as needed. Monitor urine output Accurate I's and O's Avoid nephrotoxic drugs LASIX PO QOD AT HOME Normocytic anemia Chronic anticoagulation with Eliquis History of DVTs bilateral lower extremities Continue clopidogrel/resume eliquis. Continue IV Heparin Severe Sepsis-improved Pneumonia Continue antibiotics. Lower extremity ankle and thigh wound ulcers/chronic DVT prophylaxis; back on Eliquis. Discharge Planning dc planning; home with [facility]- Problem Qualifiers (1) Pneumonia: (2) CHF exacerbation: Qualified Codes: I50.9 - Heart failure, unspecified (3) COPD (chronic obstructive pulmonary disease): (4) Anemia: (5) CAD (coronary artery disease): Hector Rivers DO Dec 24, 2017 14:03
[2017-12-24] MEDS ORDERED: Albuterol Neb INH (14:12)
[2017-12-24] MEDS ORDERED: AMLO10 PO (14:12)
[2017-12-24] MEDS ORDERED: LEVA250T14 PO (14:12)
[2017-12-24] MEDS ORDERED: CALC500 PO (14:12)
[2017-12-24] MEDS ORDERED: APIX5TAB PO (14:12)
[2017-12-24] MEDS ORDERED: FERR325T20 PO (14:12)
[2017-12-24] MEDS ORDERED: PLAV75TA29 PO (14:12)
[2017-12-24] MEDS ORDERED: METO-309 PO (14:12)
[2017-12-24] MEDS ORDERED: VITA500012 PO (14:12)
[2017-12-24] MEDS ORDERED: Budeson-Formot 160-4.5 Mcg Inh INH (14:12)
[2017-12-24] MEDS ORDERED: FURO1TAB62 PO (14:12)
[2017-12-24] MEDS ORDERED: PRED20 PO (14:12)
[2017-12-24] MEDS ORDERED: HYDR-3798 PO (14:12)
[2017-12-24] MEDS ORDERED: FAMO1TAB37 PO (14:13)
[2017-12-24] MEDS ORDERED: NEBULIZER1 MI1 (14:18)
--- NOTE | 2017-12-24 14:22 | HHI.DS ---
Discharge Summary Admission Date Dec 14, 2017 at 06:46 Discharge Date: Dec 24, 2017 Admitting Diagnosis Acute respiratory failure, pulmonary edema (1) Acute hypoxemic respiratory failure ICD Code: J96.01 - Acute respiratory failure with hypoxia Diagnosis: Principal Status: Acute (2) Sepsis ICD Code: A41.9 - Sepsis, unspecified organism Diagnosis: Principal (3) COPD with acute exacerbation ICD Code: J44.1 - Chronic obstructive pulmonary disease with (acute) exacerbation Diagnosis: Principal (4) Pneumonia ICD Code: J18.9 - Pneumonia, unspecified organism Diagnosis: Principal Status: Acute (5) CHF exacerbation ICD Code: I50.9 - Heart failure, unspecified Status: Acute (6) Pulmonary hypertension due to COPD ICD Code: I27.23 - Pulmonary hypertension due to lung diseases and hypoxia; J44.9 - Chronic obstructive pulmonary disease, unspecified Diagnosis: Principal (7) PAD (peripheral artery disease) ICD Code: I73.9 - Peripheral vascular disease, unspecified Diagnosis: Principal Status: Chronic (8) COPD (chronic obstructive pulmonary disease) ICD Code: J44.9 - Chronic obstructive pulmonary disease, unspecified Diagnosis: Principal Status: Chronic (9) Chronic anticoagulation ICD Code: Z79.01 - clinical services consultant (current) use of anticoagulants Diagnosis: Principal (10) Anemia ICD Code: D64.9 - Anemia, unspecified Diagnosis: Principal Status: Acute (11) HTN (hypertension) ICD Code: I10 - Essential (primary) hypertension Status: Chronic (12) Hx of deep venous thrombosis ICD Code: Z86.718 - Personal history of other venous thrombosis and embolism Diagnosis: Secondary Status: Chronic (13) CAD (coronary artery disease) ICD Code: I25.10 - Atherosclerotic heart disease of [place] coronary artery without angina pectoris Diagnosis: Secondary Status: Chronic (14) Rheumatoid arthritis ICD Code: M06.9 - Rheumatoid arthritis, unspecified Diagnosis: Secondary Status: Chronic (15) CKD (chronic kidney disease) stage 3, GFR 30-59 ml/min ICD Code: N18.3 - Chronic kidney disease, stage 3 (moderate) Diagnosis: Secondary Status: Chronic Procedures intubation. (12/22) S/P EGD and colonoscopy yesterday --> Mild gastritis mostly in the antrum biopsy was done 1 cm polyp in the transverse colon removed by snare. Small polyp in the sigmoid and ablated with heat. Small internal hemorrhoid Normal colonoscopy otherwise. No sign of active bleeding or old blood. Anemia likely secondary to chronic disease and decreased renal function Brief History - From Admission Patient is a 72-year-old female with past medical history of CAD s/p stent 05/13 , diastolic heart failure, COPD, lower ext DVTs on anticoagulation with Eliquis , PAD, lupus, depression, and hypertension was brought in by [facility]. Patient had Oxygen saturation was 70s on room air as per [facility]. Despite breathing treatments patient continued to deteriorate with respiratory rate in 50s and hypoxemic and patient was intubated by [facility] after Ativan 4mg IV and 20mg of etomidate. In the ER patient was evaluated by Dr. Maguire. Received Solu-Medrol and breathing treatments, also IV Lasix 40 mg 1. Chest x-ray showed Hyperinflated lungs with diffuse increased interstitial markings related to edema. Pt was also hypothermic at 93, WBC 11.7. BUN/creatinine elevated at 48/ 1.95 baseline 1.3 to 1.6. Pt given Lasix 40mg IV and Thompson inserted. Also sedated on propofol drip and given nitroglycerin topical. ABG - pH of 7.23. pO2 - 258. pCO2 45. HCO3 low at 18 on 60% I evaluated the patient in the ICU. Patient's respiratory failure seems to be secondary to combination of pneumonia COPD exacerbation and underlying CHF. However with probable pneumonia and sepsis (leukocytosis, hypothermia, bilateral interstitial infiltrates) I will hold on further diuresis. Continue gentle hydration with normal saline at 75 ML per hour. IV Solu-Medrol and breathing treatments. Zosyn and azithromycin for pneumonia CBC/BMP: 12/23/17 1340 12/23/17 1340 Significant Findings Laboratory Tests Test 12/22/17 05:25 12/22/17 14:06 12/23/17 09:15 12/23/17 13:40 Activated Partial Thromboplast Time 79.4 SEC (24.3-30.1) 39.9 SEC (24.3-30.1) Blood Urea Nitrogen 63 MG/DL (7-18) 54 MG/DL (7-18) Creatinine 2.94 MG/DL (0.50-1.00) 2.53 MG/DL (0.50-1.00) Calcium Level 7.8 MG/DL (8.5-10.1) 7.7 MG/DL (8.5-10.1) Sodium Level 146 MEQ/L (136-145) Potassium Level 3.4 MEQ/L (3.5-5.1) Chloride Level 109 MEQ/L (98-107) 111 MEQ/L (98-107) Estimat Glomerular Filtration Rate 16 ML/MIN (>89) 19 ML/MIN (>89) Total Iron Binding Capacity 106 MCG/DL (250-450) Ferritin 1319 NG/ML (8-252) Total Protein 5.1 GM/DL (6.0-7.6) 5.4 GM/DL (6.4-8.2) 25-Hydroxy Vitamin D Total 13.9 ng/ML (30-100) Parathyroid Hormone (Intact) 365.3 PG/ML (12.4-76.8) Urine Random Creatinine LESS THAN 13 MG/DL (27-300) Urine Random Total Protein 126 MG/DL (0-11.8) Urine Protein/Creatinine Ratio 9.00 (0.00-0.14) White Blood Count 12.1 TH/MM3 (4.0-11.0) Red Blood Count 2.89 MIL/MM3 (4.00-5.30) Hemoglobin 8.9 GM/DL (11.6-15.3) Hematocrit 26.6 % (35.0-46.0) Neutrophils (%) (Auto) 95.9 % (16.0-70.0) Lymphocytes (%) (Auto) 3.1 % (9.0-44.0) Neutrophils # (Auto) 11.6 TH/MM3 (1.8-7.7) Lymphocytes # (Auto) 0.4 TH/MM3 (1.0-4.8) Random Glucose 112 MG/DL (74-106) Albumin 2.3 GM/DL (3.4-5.0) Free Thyroxine 0.70 NG/DL (0.76-1.46) Imaging Last Impressions Renal Ultrasound 12/22/17 0000 Signed Impressions: Service Date/Time: Friday, December 22, 2017 10:41 - CONCLUSION: Small echogenic kidneys without hydronephrosis. Hector Maya MD FACR Foot X-Ray 12/19/17 1423 Signed Impressions: Service Date/Time: Tuesday, December 19, 2017 15:38 - CONCLUSION: 1. Diffuse osseous demineralization with no obvious acute fracture. 2. Osseous pins secure the medial malleolus. 3. Marked degenerative changes at the tibiotalar joint Ashish Lino MD Chest X-Ray 12/18/17 0600 Signed Impressions: Service Date/Time: Monday, December 18, 2017 03:08 - CONCLUSION: Persistent left lower lung consolidation and new small to moderate size left pleural effusion. Stable non-consolidative opacity lateral right. Angelito Rossi MD Abdomen X-Ray 12/18/17 0600 Signed Impressions: Service Date/Time: Monday, December 18, 2017 03:14 - CONCLUSION: No dilated loops of small or large bowel. Left lower lung consolidation. Angelito Rossi MD Abdomen/Pelvis CT 12/17/17 0000 Signed Impressions: Service Date/Time: Sunday, December 17, 2017 12:58 - CONCLUSION: 1. The cecum appears distended not present on the prior examination filled with fluid and stool of uncertain etiology could be due to ileus without signs of ischemic bowel for technique, however early ischemic bowel could be unremarkable by CT. Significant atherosclerotic calcifications of aorta and multiple visceral arteries with high-grade stenosis of the left common iliac artery and stenosis at the origin of the SMA and renal arteries are not excluded. 2. Bilateral pleural effusions and bibasilar consolidation or compressive collapse. 3. Dilated pancreatic duct and chronic calcifications related to chronic pancreatitis. Son Rivera MD Head CT 12/14/17 0000 Signed Impressions: Service Date/Time: November 06:08 - CONCLUSION: 1. No acute abnormality seen. 2. Mild atrophy. Chaim Lin MD PE at Discharge GENERAL: Awake alert talkative and cooperative- oriented 3 SKIN: Warm and dry. HEAD: Atraumatic. Normocephalic. EYES: Pupils equal and round. No scleral icterus. No injection or drainage. Extraocular muscles intact ENT: No nasal bleeding or discharge. Mucous membranes pink and moist. Tongue is midline NECK: Trachea midline. No JVD. Supple CARDIOVASCULAR: Regular rate and rhythm. S1 and S2 no S3 or S4 RESPIRATORY: No accessory muscle use. Few scattered rhonchi. Breath sounds equal bilaterally. GASTROINTESTINAL: Abdomen soft, non-tender, nondistended. Hepatic and splenic margins not palpable. MUSCULOSKELETAL: Extremities without clubbing, cyanosis, or edema. No obvious deformities. NEUROLOGICAL: Awake and alert. No obvious cranial nerve deficits. Motor grossly within normal limits. 4 out of 5 muscle strength in the arms and legs. Normal speech. PSYCHIATRIC: Appropriate mood and affect; insight and judgment slightly ABnormal. Hospital Course Patient is a 72-year-old female with past medical history of CAD s/p stent 05/13 , diastolic heart failure, COPD, lower ext DVTs on anticoagulation with Eliquis , PAD, lupus, depression, and hypertension was brought in by [facility]. Patient had Oxygen saturation was 70s on room air as per [facility]. Despite breathing treatments patient continued to deteriorate with respiratory rate in 50s and hypoxemic and patient was intubated by [facility] after Ativan 4mg IV and 20mg of etomidate. In the ER patient was evaluated by Dr. Maguire. Received Solu-Medrol and breathing treatments, also IV Lasix 40 mg 1. Chest x-ray showed Hyperinflated lungs with diffuse increased interstitial markings related to edema. Pt was also hypothermic at 93, WBC 11.7. BUN/creatinine elevated at 48/ 1.95 baseline 1.3 to 1.6. Pt given Lasix 40mg IV and Thompson inserted. Also sedated on propofol drip and given nitroglycerin topical. ABG - pH of 7.23. pO2 - 258. pCO2 45. HCO3 low at 18 on 60% I evaluated the patient in the ICU. Patient's respiratory failure seems to be secondary to combination of pneumonia COPD exacerbation and underlying CHF. However with probable pneumonia and sepsis (leukocytosis, hypothermia, bilateral interstitial infiltrates) I will hold on further diuresis. Continue gentle hydration with normal saline at 75 ML per hour. IV Solu-Medrol and breathing treatments. Zosyn and azithromycin for pneumonia 12/15/17: Remains intubated sedated. Follows commands on sedation hold. Chest x -ray shows slight interval improvement in the infiltrates. Creatinine stable to slightly down. UO 2.3 L in 24 hours 12/16/17: Extubated yesterday tolerating well. No new chest x-ray. Creatinine remains stable. Urine output adequate. Good oxygen saturation on nasal cannula 12/17/17: Complaints of increasing shortness of breath and abdominal pain with nausea and vomiting. Patient was kept nothing by mouth. Chest x-ray shows bilateral effusions/atelectasis. Stat CT abdomen pelvis showed cecal dilation. ABG showing metabolic acidosis. Bicarbonate infusion started. 12/18/17: Clinically improved, breathing comfortably on nasal cannula. KUB does not show any colon Dilation. Having bowel movements. We'll repeat ABG to follow-up acidosis. DC IV bicarbonate infusion continue Lasix 1-25 S/P EGD and colonoscopy --> Mild gastritis mostly in the antrum biopsy was done 1 cm polyp in the transverse colon removed by snare. Small polyp in the sigmoid and ablated with heat. Small internal hemorrhoid Normal colonoscopy otherwise. No sign of active bleeding or old blood. Anemia likely secondary to chronic disease and decreased renal function. 12-23 RESTARTED ON ELIQUIS YESTERDAY DW RN AND PT NEEDS WALK TEST TOMORROW MAY LEAVE AMA IF SHE IS NOT DISCHARGED TOMORROW EXPLAINED THAT IS NOT IN HER BEST INTEREST IF SHE DOES THAT 12-24 REFUSED LABS LABS PENDING WILL DC TO HOME TODAY PASSED WALK TEST NO NEED FOR OXYGEN DC TO HOME TODAY Pt Condition on Discharge: Fair Discharge Disposition: Disch w/ Home Health Serv Discharge Time: > 30 minutes Discharge Instructions DIET: Follow Instructions for: Heart Healthy Diet, Renal Failure Diet Speech Therapy-Diet Recommends: Regular Activities you can perform: Regular-No Restrictions Follow up Referrals: Gastroenterology - 2 Weeks with Terry Brenner MD Home Health Nephrology - 1 Week PCP Follow-up - 2-3 Days with Malcolm Gay MD New Medications: Famotidine (Pepcid) 20 Mg Tab 20 MG PO BID for Manage Heartburn, #60 TAB 0 Refills Furosemide (Lasix) 20 Mg Tab 20 MG PO Q2D for Blood Pressure Management, #30 TAB 0 Refills Nebulizer (Nebulizer) 1 Mis Mis EA .ROUTE DIRECTED for Breathing Treatment, #1 0 Refills Oxygen (O2) (Oxygen (O2)) Inha LITER MYKEL.CANULA CONTINUOUS for Prevent Hypoxemia, #2 Oxygen Concentrator Portable Gaseous 2 L/min via Nasal Canula Continuous For 99 months Amlodipine (Norvasc) 10 Mg Tab 10 MG PO DAILY for Blood Pressure Management, #30 TAB Ergocalciferol (Ergocalciferol) 50,000 Unit Cap 75150 UNITS PO Q7D for Nutritional Supplement, #5 CAP Ferrous Sulfate (Ferosul) 325 Mg (65 Mg Iron) Tablet 325 MG PO DAILY for Build Red Blood Cells, #30 TAB Hydralazine HCl (Hydralazine HCl) 10 Mg Tablet 10 MG PO Q8HR for Blood Pressure Management, #90 TAB Levofloxacin (Levaquin) 250 Mg Tablet 250 MG PO Q48H for Infection, #5 TAB Metoprolol Tartrate (Lopressor) 50 Mg Tab 50 MG PO Q8H for Blood Pressure Management, #90 TAB Oyster Shell (Oyster Calcium) 500 Mg Calcium (1250 Mg) Tab 500 MG PO DAILY for Nutritional Supplement, #30 TAB Prednisone (Prednisone) 20 Mg Tab 40 MG PO DAILY for Breathing Treatment, #60 TAB [Albuterol Neb] () 2.5 MG/3 ML NEBU 2.5 MG INH Q4HR NEB PRN for SHORTNESS OF BREATH, #180 AMPULE [Budeson-Formot 160-4.5 Mcg Inh] () 60 PUFF AERO 2 PUFF INH Q12HR for Cough, #1 INH Continued Medications: Apixaban (Eliquis) 5 Mg Tab 5 MG PO BID for Blood Clot Prevention, #60 TAB 0 Refills (This prescription has been renewed) Clopidogrel (Plavix) 75 Mg Tab 75 MG PO DAILY for stent, #30 TAB (This prescription has been renewed) Hydroxychloroquine (Plaquenil) 200 Mg Tab 200 MG PO DAILY, #30 TAB 0 Refills Take with food Mirtazapine (Mirtazapine) 30 Mg Tab 30 MG PO HS for Depression Control, #30 TAB 0 Refills Sertraline (Sertraline) 50 Mg Tab 50 MG PO DAILY, #30 TAB 0 Refills Discontinued Medications: Amlodipine (Norvasc) 5 Mg Tab 5 MG PO DAILY for htn, #30 TAB Ferrous Sulfate (Iron) 18 Mg Tab 65 MG PO DAILY Lisinopril (Lisinopril) 5 Mg Tab 5 MG PO DAILY for Blood Pressure Management, #30 TAB 0 Refills Metoprolol Tartrate (Lopressor) 50 Mg Tab 50 MG PO Q12HR for cad, #60 TAB 3 Refills Hector Rivers DO Dec 24, 2017 14:22
[2017-12-24 14:36] LABS: AUTOMATED NEUTROPHIL # 8.6 TH/MM3 (1.8-7.7); BASOPHIL % 0.2 % (0.0-2.0); HEMATOCRIT 26.9 % (35.0-46.0); HEMOGLOBIN 9.4 GM/DL (11.6-15.3); LYMPH % 3.6 % (9.0-44.0); LYMPHOCYTE # 0.3 TH/MM3 (1.0-4.8); MEAN CELL VOLUME 91.6 FL (80.0-100.0); MEAN CORPUSCULAR HEMOGLOBIN 32.1 PG (27.0-34.0); MEAN CORPUSCULAR HGB CONC 35.1 % (32.0-36.0); MEAN PLATELET VOLUME 8.5 FL (7.0-11.0); MONO % 0.6 % (0.0-8.0); MONOCYTE # 0.1 TH/MM3 (0-0.9); NEUT % 95.6 % (16.0-70.0); PLATELET COUNT 199 TH/MM3 (150-450); RED BLOOD COUNT 2.94 MIL/MM3 (4.00-5.30); RED CELL DISTRIBUTION WIDTH 14.4 % (11.6-17.2)
[2017-12-24 14:53] LABS: ALBUMIN 2.5 GM/DL (3.4-5.0); AST (GOT) 30 U/L (15-37); BICARBONATE 27.7 MEQ/L (21.0-32.0); BLOOD UREA NITROGEN 49 MG/DL (7-18); CALCIUM 8.4 MG/DL (8.5-10.1); CHLORIDE 110 MEQ/L (98-107); CREATININE 2.69 MG/DL (0.50-1.00); GLOMERULAR FILTRATION RATE 17 ML/MIN (>89); GLUCOSE,RANDOM 128 MG/DL (74-106); MAGNESIUM 1.7 MG/DL (1.5-2.5); SODIUM (NA) 146 MEQ/L (136-145)
[2017-12-24 15:04] LABS: ALKALINE PHOSPHATASE 69 U/L (45-117); ALT (GPT) 31 U/L (10-53); FREE T4 0.69 NG/DL (0.76-1.46); PHOSPHORUS 3.7 MG/DL (2.5-4.9); TOTAL BILIRUBIN ADULT 0.3 MG/DL (0.2-1.0); TOTAL PROTEIN 5.5 GM/DL (6.4-8.2)
[2017-12-25 16:16] LABS: HEMOGLOBIN A1C 4.5 % (4.3-6.0)
[2017-12-25 21:15] LABS: ALB/GLOB RATIO (SPE) 1.36 (1.39-2.23)
[2017-12-27 03:49] LABS: KAPPA/LAMBDA FREE 1.14 (0.26-1.65)
== END 2017-12-24 17:17 | disposition home health service (06) | DRG 871 ==
LOC: NEPE 04:48 → NEDA 06:46 → HIME 09:12 → N04B 12-18 23:33
PROVIDERS: ADMIT Internal Medicine; ATTEND Internal Medicine
PROC: 5A1945Z Respiratory Ventilation, 24-96 Consecutive Hours (ICD-10-PCS; principal; 2017-12-14)
PROC: 5A09357 Assistance with Respiratory Ventilation, Less than 24 Consecutive Hours, Continuous Positive Airway Pressure (ICD-10-PCS; 2017-12-17)
PROC: 0DB68ZX Excision of Stomach, Via Natural or Artificial Opening Endoscopic, Diagnostic (ICD-10-PCS; 2017-12-21)
PROC: 0DBL8ZX Excision of Transverse Colon, Via Natural or Artificial Opening Endoscopic, Diagnostic (ICD-10-PCS; 2017-12-21)
PROC: 0D5N8ZZ Destruction of Sigmoid Colon, Via Natural or Artificial Opening Endoscopic (ICD-10-PCS; 2017-12-21)
DX: A41.9 Sepsis, unspecified organism (principal); J96.01 Acute respiratory failure with hypoxia; J18.9 Pneumonia, unspecified organism; N17.9 Acute kidney failure, unspecified; I50.33 Acute on chronic diastolic (congestive) heart failure; E87.2 Acidosis; E87.0 Hyperosmolality and hypernatremia; K59.39 Other megacolon; I13.0 Hypertensive heart and chronic kidney disease with heart failure and stage 1 through stage 4 chronic kidney disease, or unspecified chronic kidney disease; J44.0 Chronic obstructive pulmonary disease with (acute) lower respiratory infection; K86.1 Other chronic pancreatitis; J44.1 Chronic obstructive pulmonary disease with (acute) exacerbation; Q61.5 Medullary cystic kidney; K92.1 Melena; N25.81 Secondary hyperparathyroidism of renal origin; J98.11 Atelectasis; L97.309 Non-pressure chronic ulcer of unspecified ankle with unspecified severity; I27.23 Pulmonary hypertension due to lung diseases and hypoxia; N18.3 Chronic kidney disease, stage 3 (moderate); M06.9 Rheumatoid arthritis, unspecified; I73.9 Peripheral vascular disease, unspecified; I25.10 Atherosclerotic heart disease of native coronary artery without angina pectoris; E78.5 Hyperlipidemia, unspecified; F32.9 Major depressive disorder, single episode, unspecified; R65.20 Severe sepsis without septic shock; I70.8 Atherosclerosis of other arteries; D63.8 Anemia in other chronic diseases classified elsewhere; I70.1 Atherosclerosis of renal artery; R80.9 Proteinuria, unspecified; D12.3 Benign neoplasm of transverse colon; D12.5 Benign neoplasm of sigmoid colon; R68.0 Hypothermia, not associated with low environmental temperature; E83.51 Hypocalcemia; K63.5 Polyp of colon; K64.8 Other hemorrhoids; K29.70 Gastritis, unspecified, without bleeding; E55.9 Vitamin D deficiency, unspecified; E87.6 Hypokalemia; R15.9 Full incontinence of feces; R32 Unspecified urinary incontinence; N14.1 Nephropathy induced by other drugs, medicaments and biological substances; E86.9 Volume depletion, unspecified; I25.2 Old myocardial infarction; Z79.01 Long term (current) use of anticoagulants; Z79.899 Other long term (current) drug therapy; Z86.718 Personal history of other venous thrombosis and embolism; Z87.891 Personal history of nicotine dependence; Z95.5 Presence of coronary angioplasty implant and graft; Z87.442 Personal history of urinary calculi; T50.8X5A Adverse effect of diagnostic agents, initial encounter
CPT/HCPCS: 36600; 51702; 70450; 71045; 73630; 74018; 74177; 76775; 80048; 80053; 80069; 81001; 82272; 82306; 82570; 82607; 82728; 82747; 82805; 83036; 83540; 83550; 83605; 83735; 83880; 83883; 83970; 84100; 84156; 84165; 84439; 84443; 84484; 85014; 85018; 85025; 85027; 85610; 85730; 86850; 86900; 86901; 86920; 87040; 87070; 87205; 87328; 87329; 87493; 87506; 87641; 88305; 88312; 93005; 94002; 94003; 94150; 94618; 94640; 94664; 96365; 96375; J0360; J0456; J1644; J1940; J2270; J2405; J2543; J2920; J2930; J7030; J7040; J7050; J7120; J7512; Q0163; Q9967

== ENCOUNTER 2018-02-08 12:27 | Inpatient (IN) | payer MEDICARE ==
[2018-02-08] VITALS (9 sets, daily range): BP systolic 100–126; BP diastolic 51–76; PULSE 62–101; RESP 16–18; TEMP 97.5–97.9; O2SAT 80–100
[~2018-02-08] VITALS: Ht 157.5 cm; Wt 36.9 kg
[~2018-02-08 12:27] MED LIST changes: +AMLO10 PO; -AMLO5 PO; +APIX5TAB PO; -ASPI81CH7 PO; -ASPI81TA81 PO; +Albuterol Neb INH; +Budeson-Formot 160-4.5 Mcg Inh INH; +CALC500 PO; -CHOL10008 PO; -CHOL1TAB42; -COUM5TAB PO; +FAMO1TAB37 PO; +FERR325T20 PO; +FURO1TAB62 PO; -FURO20TA PO; +HYDR-3798 PO; -IRON18TA PO; +LEVA250T14 PO; -LIPI20TA PO; -LISI-519 PO; +NEBULIZER1 MI1; -NICO14DI23 T-DERMAL; -NIFE60TA8 PO; +OXYGEN NAS.CANULA; -PRED10 PO; -SYMB160A INH; +VITA500012 PO
--- NOTE | 2018-02-08 13:17 | PD ---
HPI Chief Complaint: Fall Time Seen by Provider: 13:01 Travel History International Travel<30 days: No Contact w/Intl Traveler<30days: No Traveled to known affect area: No History of Present Illness HPI 72-year-old female with PMH of CHF, COPD, lupus, artery, hypertension, DVT right leg, CAD status post stenting, on Eliquis presents to the ED for evaluation of altered mental status. Daughter is at bedside and states that her mom seems more confused over the last few days. She states that her mom had a fall 4 days ago, struck her head but did not lose consciousness. The patient states that she lost her balance and fell, landing on the tile floor. On presentation she complains of left hip, buttocks and left knee pain. She endorses urinary urgency, incontinence, dysuria. She denies headaches, dizziness, chest pain, palpitations, shortness of breath, abdominal pain, nausea or vomiting. She states that she's been minimally ambulatory since the accident. PFSH Past Medical History Hx Anticoagulant Therapy: Yes Arthritis: Yes Autoimmune Disease: Yes (lupus, rheumatoid arthritis) Depression: Yes Cancer: No Cardiac Catheterization: Yes (stent x1) Cardiovascular Problems: Yes (htn on meds, [place] x 1 with stents, chf) Chest Pain: Yes COPD: Yes Diabetes: No Deep Vein Thrombosis: Yes (rt leg) Endocrine: Yes Genitourinary: Yes Hypertension: Yes Immune Disorder: Yes (Lupus) Kidney Stones: Yes Musculoskeletal: Yes Neurologic: No Psychiatric: No Reproductive: No Respiratory: Yes (copd) Myocardial Infarction: Yes Thyroid Disease: Yes (Parathyroid surgery) Triglycerides - High: Yes ?: Not Past Surgical History Abdominal Surgery: No Cardiac Surgery: Yes (cardiac stent) Ear Surgery: No Endocrine Surgery: Yes (parathyroid surgery) Eye Surgery: Yes (bilat cataract) Genitourinary Surgery: No Gynecologic Surgery: No Oral Surgery: No Thoracic Surgery: No Other Surgery: Yes (parathyroid surgery) Social History Alcohol Use: No Tobacco Use: Yes Substance Use: No Allergies-Medications (Allergen,Severity, Reaction): Coded Allergies: cephalexin (Verified Allergy, Unknown, rash, 02/08/18) diatrizoate meglumine (Verified Allergy, Unknown, rash, 02/08/18) fluconazole (Verified Allergy, Unknown, rash, 02/08/18) gadobenic acid (Verified Allergy, Unknown, rash, 02/08/18) gadodiamide (Verified Allergy, Unknown, rash, 02/08/18) gadoteridol (Verified Allergy, Unknown, rash, 02/08/18) iodixanol (Verified Allergy, Unknown, rash, 02/08/18) iohexol (Verified Allergy, Unknown, rash, 02/08/18) pravastatin (Verified Allergy, Unknown, rash, 02/08/18) Reported Meds & Prescriptions Reported Meds & Active Scripts Active Pepcid (Famotidine) 20 Mg Tab 20 Mg PO BID Lasix (Furosemide) 20 Mg Tab 20 Mg PO Q2D Ergocalciferol 50,000 Unit Cap 50,000 Units PO Q7D Prednisone 20 Mg Tab 40 Mg PO DAILY [Budeson-Formot 160-4.5 Mcg Inh] 60 PUFF Aero 2 Puff INH Q12HR Oyster Calcium (Oyster Shell) 500 Mg Calcium (1250 Mg) Tab 500 Mg PO DAILY Hydralazine HCl 10 Mg Tablet 10 Mg PO Q8HR [Albuterol Neb] 2.5 MG/3 ML Nebu 2.5 Mg INH Q4HR NEB PRN Eliquis (Apixaban) 5 Mg Tab 5 Mg PO BID Plavix (Clopidogrel Bisulfate) 75 Mg Tab 75 Mg PO DAILY Oxygen (O2) (Miscellaneous Medication) Inha Liter MYKEL.CANULA CONTINUOUS Oxygen Concentrator Portable Gaseous 2 L/min via Nasal Canula Continuous For 99 months Reported Mirtazapine 30 Mg Tab 30 Mg PO HS Sertraline (Sertraline HCl) 50 Mg Tab 50 Mg PO DAILY Plaquenil (Hydroxychloroquine Sulfate) 200 Mg Tab 200 Mg PO DAILY Take with food Review of Systems Except as stated in HPI: all other systems reviewed are Neg Physical Exam Narrative GENERAL: Frail elderly white female in no acute distress. SKIN: Focused skin assessment pale, warm, dry. HEAD: Normocephalic. EYES: No scleral icterus. No injection or drainage. NECK: Supple, trachea midline. No JVD or lymphadenopathy. CARDIOVASCULAR: Regular rate and rhythm without murmurs, gallops, or rubs. RESPIRATORY: Breath sounds clear and equal bilaterally. No accessory muscle use. GASTROINTESTINAL: Abdomen soft, non-tender, nondistended. Active bowel sounds. MUSCULOSKELETAL: No cyanosis, or edema. Tender palpation in the coccygeal area as well as the left knee. NEUROLOGICAL: Awake and alert. Cranial nerves II through XII intact. Motor and sensory grossly within normal limits. Five out of 5 muscle strength in all muscle groups. Normal speech. BACK: Nontender without obvious deformity. No CVA tenderness. Data Data Last Documented VS Vital Signs Date Time Temp Pulse Resp B/P (MAP) Pulse Ox O2 Delivery O2 Flow Rate FiO2 02/08/18 13:30 98 02/08/18 12:45 97.5 77 16 126/51 (76) Orders Orders Complete Blood Count With Diff (02/08/18 13:17) Comprehensive Metabolic Panel (02/08/18 13:17) Prothrombin Time / Inr (Pt) (02/08/18 13:17) Act Partial Throm Time (Ptt) (02/08/18 13:17) Urinalysis - C+S If Indicated (02/08/18 13:17) Chest, Single Ap (02/08/18 13:17) Ct Brain W/O Iv Contrast(Rout) (02/08/18 13:17) Ecg Monitoring (02/08/18 13:17) Iv Access Insert/Monitor (02/08/18 13:17) Oximetry (02/08/18 13:17) Sodium Chloride 0.9% Flush (Ns Flush) (02/08/18 13:30) Knee, Complete (4vws) (02/08/18 13:17) Sacrum And Coccyx (02/08/18 ) ^ Insert Iv (02/08/18 13:17) B-Type Natriuretic Peptide (02/08/18 13:17) Sodium Chlorid 0.9% 500 Ml Inj (Ns 500 M (02/08/18 13:30) Acetaminophen (Tylenol) (02/08/18 13:30) Electrocardiogram (02/08/18 ) Type And Screen (02/08/18 14:46) Red Blood Cells (Rbc) (02/08/18 14:46) Admit Order (Ed Use Only) (02/08/18 15:03) Creatine Kinase (Cpk) (02/08/18 14:05) Troponin I (02/08/18 14:05) Labs Laboratory Tests Test 02/08/18 14:05 White Blood Count 16.5 TH/MM3 Red Blood Count 1.90 MIL/MM3 Hemoglobin 5.8 GM/DL Hematocrit 17.5 % Mean Corpuscular Volume 92.1 FL Mean Corpuscular Hemoglobin 30.3 PG Mean Corpuscular Hemoglobin Concent 32.9 % Red Cell Distribution Width 15.3 % Platelet Count 310 TH/MM3 Mean Platelet Volume 6.8 FL Neutrophils (%) (Auto) 87.3 % Lymphocytes (%) (Auto) 4.3 % Monocytes (%) (Auto) 6.5 % Eosinophils (%) (Auto) 0.1 % Basophils (%) (Auto) 1.8 % Neutrophils # (Auto) 14.4 TH/MM3 Lymphocytes # (Auto) 0.7 TH/MM3 Monocytes # (Auto) 1.1 TH/MM3 Eosinophils # (Auto) 0.0 TH/MM3 Basophils # (Auto) 0.3 TH/MM3 CBC Comment DIFF FINAL Differential Comment Prothrombin Time 12.0 SEC Prothromb Time International Ratio 1.2 RATIO Activated Partial Thromboplast Time 45.8 SEC Blood Urea Nitrogen 108 MG/DL Creatinine 4.10 MG/DL Random Glucose 55 MG/DL Total Protein 7.0 GM/DL Albumin 2.7 GM/DL Calcium Level 7.7 MG/DL Alkaline Phosphatase 111 U/L Aspartate Amino Transf (AST/SGOT) 25 U/L Alanine Aminotransferase (ALT/SGPT) 16 U/L Total Bilirubin 0.2 MG/DL Sodium Level 135 MEQ/L Potassium Level 6.0 MEQ/L Chloride Level 105 MEQ/L Carbon Dioxide Level 12.4 MEQ/L Anion Gap 18 MEQ/L Estimat Glomerular Filtration Rate 11 ML/MIN Total Creatine Kinase 181 U/L Troponin I LESS THAN 0.02 NG/ML B-Type Natriuretic Peptide 1785 PG/ML [facility] Medical Decision Making Medical Screen Exam Complete: Yes Emergency Medical Condition: Yes Differential Diagnosis Fall versus pelvic fracture versus metabolic derangement versus UTI versus anemia versus other Narrative Course 72-year-old female with complex medical history presents to the ED for evaluation after fall. Daughter states patient's mentation is altered. Afebrile, pulse 77, BP 126/51 on presentation. On exam the patient has no focal neuro deficits. She does have tenderness to palpation of the coccygeal region as well as the left knee. Chest CTAB. Abdomen soft and nontender. IV was established. Patient was administered 0.5 L normal saline. EKG: Reviewed by Dr. Salguero. CXR: Bilateral rib fractures. No displaced acute rib fractures or pneumothorax. No acute abnormality. CMP: Cardiac enzymes negative 1. BNP 175. CBC: WBC 16.5. Hemoglobin 5.8. Hematocrit 17.5. INR 1.2. CMP: Potassium 6.0. BUN 108, creatinine 4.1. UA: Pending. I discussed the patient with Dr. Salguero. He instructed me to begin potassium lowering measures. 2 units PRBC's to be transfused pending type and screen. Patient was administered Kayexalate, D50, sodium bicarbonate, insulin. Imaging studies are pending at this time. I spoke with Dr. Simental who agrees to accept the patient to the medicine service. Please see medicine notes for disposition. [facility] Point of Care Internal Pos. & Neg. Controls: Passed Fecal Specimen Occult Blood: Positive Kaity Lee Feb 08, 2018 13:17
[2018-02-08] MEDS ORDERED: SODIUM CHLORID 0.9% 500 ML INJ 500 ML IV ONE (13:30)
[2018-02-08] MEDS ORDERED: SODIUM CHLORIDE 0.9% FLUSH 10 ML FLUSH IV FLUSH PRN ×2 (13:30→15:15)
[2018-02-08] MEDS ORDERED: ACETAMINOPHEN 325 MG TAB PO ONE (13:30)
[2018-02-08 14:28] LABS: INTERNATIONAL NORMALIZED RATIO 1.2 RATIO
[2018-02-08 14:33] LABS: CHLORIDE 105 MEQ/L (98-107); SODIUM (NA) 135 MEQ/L (136-145)
[2018-02-08 14:36] LABS: CALCIUM 7.7 MG/DL (8.5-10.1)
[2018-02-08 14:37] LABS: ALBUMIN 2.7 GM/DL (3.4-5.0); BICARBONATE 12.4 MEQ/L (21.0-32.0); BLOOD UREA NITROGEN 108 MG/DL (7-18); GLUCOSE,RANDOM 55 MG/DL (74-106)
[2018-02-08 14:38] LABS: AUTOMATED NEUTROPHIL # 14.4 TH/MM3 (1.8-7.7); BASOPHIL # 0.3 TH/MM3 (0-0.2); BASOPHIL % 1.8 % (0.0-2.0); EOSINOPHIL % 0.1 % (0.0-4.0); LYMPH % 4.3 % (9.0-44.0); LYMPHOCYTE # 0.7 TH/MM3 (1.0-4.8); MEAN CELL VOLUME 92.1 FL (80.0-100.0); MEAN CORPUSCULAR HEMOGLOBIN 30.3 PG (27.0-34.0); MEAN CORPUSCULAR HGB CONC 32.9 % (32.0-36.0); MEAN PLATELET VOLUME 6.8 FL (7.0-11.0); MONO % 6.5 % (0.0-8.0); MONOCYTE # 1.1 TH/MM3 (0-0.9); NEUT % 87.3 % (16.0-70.0); PLATELET COUNT 310 TH/MM3 (150-450); RED CELL DISTRIBUTION WIDTH 15.3 % (11.6-17.2); WHITE BLOOD COUNT 16.5 TH/MM3 (4.0-11.0)
[2018-02-08 14:40] LABS: ALT (GPT) 16 U/L (10-53); AST (GOT) 25 U/L (15-37); GLOMERULAR FILTRATION RATE 11 ML/MIN (>89)
[2018-02-08 14:41] LABS: HEMATOCRIT 17.5 % (35.0-46.0); HEMOGLOBIN 5.8 GM/DL (11.6-15.3); TOTAL BILIRUBIN ADULT 0.2 MG/DL (0.2-1.0)
[2018-02-08 14:43] LABS: ALKALINE PHOSPHATASE 111 U/L (45-117)
[2018-02-08] MEDS ORDERED: NALOXONE HCL 0.4 MG/ML AMP IV PUSH PRN (15:15)
[2018-02-08 15:20] LABS: TROPONIN I LESS THAN 0.02 NG/ML (0.02-0.05)
--- NOTE | 2018-02-08 15:35 | RADRPT ---
EXAM DATE/TIME: 02/08/2018 14:52 [facility] COMPARISON: CHEST SINGLE AP, December 18, 2017, 3:08. INDICATIONS : Chest pain; fall 4 days ago. MEDICAL HISTORY : Hypertension. Myocardial infarction. Chronic obstructive pulmonary disease. CHF. Lupus. RA. Parat hyroid disease. SURGICAL HISTORY : Cardiac cath. Cardiac stents. ENCOUNTER: Initial ACUITY: 4 - 6 days PAIN SCORE: 4/10 LOCATION: Bilateral chest FINDINGS: Lungs are hyperexpanded with mild diffuse interstitial prominence. Biapical scarring with improved ae ration in the lower lung zones bilaterally. No new focal pleural or parenchymal opacities. Cardiomedi astinal contours are are stable. Redemonstration of old bilateral rib fractures. No displaced acute r ib fractures. CONCLUSION: 1. Bilateral old rib fractures. 2. No displaced acute rib fractures or pneumothorax. 3. No acute abnormality. Noah Douglass MD on February 08, 2018 at 15:30 Board Certified Radiologist. This report was verified electronically.
--- NOTE | 2018-02-08 15:37 | RADRPT ---
EXAM DATE/TIME: 02/08/2018 14:52 [facility] COMPARISON: FOOT RIGHT COMPLETE ([id number]), December 19, 2017, 15:38. INDICATIONS : Left knee pain; fall 4 days ago. MEDICAL HISTORY : Rheumatoid arthritis. Lupus. SURGICAL HISTORY : None. ENCOUNTER: Initial ACUITY: 4 - 6 days PAIN SCORE: 6/10 LOCATION: Left knee. FINDINGS: The examination demonstrates mild degenerative changes in the medial compartment. There is no signifi cant joint effusion. No acute fracture is seen. Note is made of atherosclerotic plaquing in the distal superficial femoral, popliteal and tibial vess els. CONCLUSION: 1. Mild arthritic changes. No acute abnormality is identified. Carlitos Maya MD on February 08, 2018 at 15:34 Board Certified Radiologist. This report was verified electronically.
--- NOTE | 2018-02-08 15:44 | RADRPT ---
EXAM DATE/TIME: 02/08/2018 15:17 [facility] COMPARISON: CT BRAIN W/O CONTRAST, December 14, 2017, 6:08. INDICATIONS : Trauma. Fall. Altered mental status. RADIATION DOSE: 60.38 CTDIvol (mGy) MEDICAL HISTORY : Deep venous thrombosis. Myocardial infarction. Chronic obstructive pulmonary disease. Hypertension. Lupus. SURGICAL HISTORY : Coronary artery stent. ENCOUNTER: Initial ACUITY: 4 - 6 days PAIN SCALE: 0/10 LOCATION: cranial TECHNIQUE: Multiple contiguous axial images were obtained of the head. Using automated exposure control and adj ustment of the mA and/or kV according to patient size, radiation dose was kept as low as reasonably a chievable to obtain optimal diagnostic quality images. DICOM format image data is available electro nically for review and comparison. FINDINGS: CEREBRUM: There is mild cerebral atrophy. Scattered old tiny lacunar infarcts are noted within the bilateral ba trent ganglia. Mild periventricular white matter small vessel ischemic changes are noted bilaterally. N o evidence of midline shift, mass lesion, hemorrhage or acute infarction. No extra-axial fluid colle ctions are seen. POSTERIOR FOSSA: The cerebellum and brainstem are intact. The 4th ventricle is midline. The cerebellopontine angle i s unremarkable. EXTRACRANIAL: The visualized portion of the orbits is intact. SKULL: The calvaria is intact. No evidence of skull fracture. CONCLUSION: 1. Mild stable cerebral atrophy. 2. Scattered old tiny lacunar infarcts within the bilateral basal ganglia. 3. Mild periventricular white matter small vessel ischemic changes bilaterally. 4. No acute infarct, acute hemorrhage, midline shift or extra-axial fluid collections. Jack Dinh MD on February 08, 2018 at 15:38 Board Certified Radiologist. This report was verified electronically.
[2018-02-08] MEDS ORDERED: SODIUM BICARBONATE 8.4% SOLN 50 MEQ/50 ML VIAL SLOW IVP ONE (16:00)
[2018-02-08] MEDS ORDERED: DEXTROSE 50% IN WATER 50 ML VIAL(D50) IV PUSH ONE (16:00)
[2018-02-08] MEDS ORDERED: INSULIN HUMAN REGULAR 1,000 UNITS/10 ML VIAL IV PUSH ONE (16:00)
[2018-02-08] MEDS ORDERED: MAGNESIUM HYDROXIDE SUSP 30 ML CUP PO PRN (16:00)
[2018-02-08] MEDS ORDERED: ONDANSETRON HCL 4 MG/2 ML VIAL IVP PRN (16:00)
[2018-02-08] MEDS ORDERED: SODIUM POLYSTYRENE SULFONATE SUSP 15 GM/60 ML CUP PO ONE (16:00)
--- NOTE | 2018-02-08 16:05 | RADRPT ---
EXAM DATE/TIME: 02/08/2018 14:52 [facility] COMPARISON: ABDOMEN KUB ONLY, December 17, 2017, 10:51. ABDOMEN KUB ONLY, December 18, 2017, 3:14. CT ABDOMEN & P PEDRO W CONTRAST, December 17, 2017, 12:58. INDICATIONS : Sacrum pain; fall 4 days ago. MEDICAL HISTORY : Rheumatoid arthritis. Lupus. SURGICAL HISTORY : None. ENCOUNTER: Initial ACUITY: 4 - 6 days PAIN SCORE: 10/10 LOCATION: Bilateral buttock FINDINGS: Structures are diffusely osteopenic. Apparent disruption of the left sacral arches on the AP view. No evidence for displacement on the lateral view. Many osseous structures appear intact. The coccyx ray ears intact. Partially imaged right femoral head fixation hardware with leatha-hardware lucency suggest ing loosening. Vascular calcifications. No significant soft tissue abnormality. CONCLUSION: 1. Diffuse osteopenia with findings concerning for nondisplaced left sacral fractures. Consider CT or MRI examination to confirm this finding as clinically appropriate. 2. Partially imaged right femoral fixation hardware with leatha-hardware lucency suggesting loosening. This is unchanged from prior abdominal radiograph. Noah Douglass MD on February 08, 2018 at 15:58 Board Certified Radiologist. This report was verified electronically.
--- NOTE | 2018-02-08 16:26 | HHI.HP ---
[facility] Service [facility] Primary Care Physician Malcolm Gay MD Admission Diagnosis anemia, hyperkalemia, acute on chronic kidney injury Diagnoses: Travel History International Travel<30 Days: No Contact w/Intl Traveler <30 Da: No Traveled to Known Affected Are: No History of Present Illness Mrs. Plaza is a 72 year old female. She is brought in by her daughter secondary to changes in her baseline mental status. It is reported that she fell 4 days ago and struck her head. No loss of consciousness. CT of the brain shows no evidence of bleed. No evidence of stroke. Patient is found to be severely anemic with a hemoglobin level of 5.4. She is on Eliquis for treatment of a DVT. She is also on Plavix as a treatment for coronary stent. These 2 treatments coupled with acute renal failure are likely causing her bleeding. She has a past history of bleeding from an unknown source. GI workups have been negative to improve any source. She has had 2 units transfused last August, July, and September. Imaging reveals possible sacral fracture of the left, MRI recommended for further clarification. Patient complains of no chest pain. At baseline she has coronary artery disease , CHF, COPD, lupus, hypertension, rheumatoid arthritis, and a right leg DVT. Leukocytosis is present. UA is pending. BNP is significantly elevated, no respiratory symptoms. Hyperkalemia is present and likely related to dehydration combined with acute renal failure. Patient is on potassium supplements at baseline. Review of Systems Constitutional: COMPLAINS OF: Fatigue, DENIES: Fever, Chills, Night Sweats Eyes: DENIES: Blurred vision, Diplopia, Eye inflammation, Eye pain Ears, nose, mouth, throat: DENIES: Hearing loss, Vertigo, Nasal discharge Respiratory: COMPLAINS OF: Shortness of breath, DENIES: Cough, Wheezing Cardiovascular: DENIES: Chest pain, Palpitations, Syncope Gastrointestinal: DENIES: Abdominal pain, Black stools, Bloody stools Musculoskeletal: COMPLAINS OF: Joint pain, Back pain, DENIES: Muscle aches, Stiffness, Joint Swelling Integumentary: COMPLAINS OF: Nail changes, DENIES: Abnormal pigmentation, Pruritus, Rash Hematologic/lymphatic: DENIES: Bruising, Lymphadenopathy Immunologic/allergic: DENIES: Eczema, Urticaria Neurologic: DENIES: Abnormal gait, Headache, Paresthesias Psychiatric: COMPLAINS OF: Confusion, DENIES: Anxiety, Hallucinations Past Family Social History Past Medical History Rheumatoid Arthritis Lupus Depression Coronary artery disease [facility] Congestive heart failure Hypertension Angina COPD Nephrolithiasis history Right leg DVT Parathyroidectomy Hyperlipidemia Past Surgical History Cardiac stent Parathyroidectomy Bilateral cataract surgery Reported Medications Reported Meds & Active Scripts Active Pepcid (Famotidine) 20 Mg Tab 20 Mg PO BID Lasix (Furosemide) 20 Mg Tab 20 Mg PO Q2D Ergocalciferol 50,000 Unit Cap 50,000 Units PO Q7D Prednisone 20 Mg Tab 40 Mg PO DAILY [Budeson-Formot 160-4.5 Mcg Inh] 60 PUFF Aero 2 Puff INH Q12HR Oyster Calcium (Oyster Shell) 500 Mg Calcium (1250 Mg) Tab 500 Mg PO DAILY Hydralazine HCl 10 Mg Tablet 10 Mg PO Q8HR [Albuterol Neb] 2.5 MG/3 ML Nebu 2.5 Mg INH Q4HR NEB PRN Eliquis (Apixaban) 5 Mg Tab 5 Mg PO BID Plavix (Clopidogrel Bisulfate) 75 Mg Tab 75 Mg PO DAILY Oxygen (O2) (Miscellaneous Medication) Inha Liter MYKEL.CANULA CONTINUOUS Oxygen Concentrator Portable Gaseous 2 L/min via Nasal Canula Continuous For 99 months Reported Mirtazapine 30 Mg Tab 30 Mg PO HS Sertraline (Sertraline HCl) 50 Mg Tab 50 Mg PO DAILY Plaquenil (Hydroxychloroquine Sulfate) 200 Mg Tab 200 Mg PO DAILY Take with food Allergies: Coded Allergies: cephalexin (Verified Allergy, Unknown, rash, 02/08/18) diatrizoate meglumine (Verified Allergy, Unknown, rash, 02/08/18) fluconazole (Verified Allergy, Unknown, rash, 02/08/18) gadobenic acid (Verified Allergy, Unknown, rash, 02/08/18) gadodiamide (Verified Allergy, Unknown, rash, 02/08/18) gadoteridol (Verified Allergy, Unknown, rash, 02/08/18) iodixanol (Verified Allergy, Unknown, rash, 02/08/18) iohexol (Verified Allergy, Unknown, rash, 02/08/18) pravastatin (Verified Allergy, Unknown, rash, 02/08/18) Social History Alcohol Use: No Tobacco Use: Yes Substance Use: No Physical Exam Vital Signs Vital Signs Date Time Temp Pulse Resp B/P (MAP) Pulse Ox O2 Delivery O2 Flow Rate FiO2 02/08/18 12:45 97.5 77 16 126/51 (76) Physical Exam GENERAL: NAD, A&Ox3 HEAD: Normocephalic. NECK: Supple, trachea midline. No lymphadenopathy. EYES: No scleral icterus. No injection or drainage. CARDIOVASCULAR: Regular rate and rhythm without murmurs, gallops, or rubs. RESPIRATORY: Breath sounds equal bilaterally. No accessory muscle use. GASTROINTESTINAL: Abdomen soft, non-tender, nondistended. MUSCULOSKELETAL: No cyanosis, or edema. SKIN: Diffuse pallor. Warm and dry. Small 1 cm area of erythema at right lateral hip, no signs of infection NEURO: No focal neurological deficitis. Laboratory Laboratory Tests Test 02/08/18 14:05 White Blood Count 16.5 Red Blood Count 1.90 Hemoglobin 5.8 Hematocrit 17.5 Mean Corpuscular Volume 92.1 Mean Corpuscular Hemoglobin 30.3 Mean Corpuscular Hemoglobin Concent 32.9 Red Cell Distribution Width 15.3 Platelet Count 310 Mean Platelet Volume 6.8 Neutrophils (%) (Auto) 87.3 Lymphocytes (%) (Auto) 4.3 Monocytes (%) (Auto) 6.5 Eosinophils (%) (Auto) 0.1 Basophils (%) (Auto) 1.8 Neutrophils # (Auto) 14.4 Lymphocytes # (Auto) 0.7 Monocytes # (Auto) 1.1 Eosinophils # (Auto) 0.0 Basophils # (Auto) 0.3 CBC Comment DIFF FINAL Differential Comment Prothrombin Time 12.0 Prothromb Time International Ratio 1.2 Activated Partial Thromboplast Time 45.8 Blood Urea Nitrogen 108 Creatinine 4.10 Random Glucose 55 Total Protein 7.0 Albumin 2.7 Calcium Level 7.7 Alkaline Phosphatase 111 Aspartate Amino Transf (AST/SGOT) 25 Alanine Aminotransferase (ALT/SGPT) 16 Total Bilirubin 0.2 Sodium Level 135 Potassium Level 6.0 Chloride Level 105 Carbon Dioxide Level 12.4 Anion Gap 18 Estimat Glomerular Filtration Rate 11 Total Creatine Kinase 181 Troponin I LESS THAN 0.02 B-Type Natriuretic Peptide 1785 Result Diagram: 3/15/18 1405 02/08/18 1405 Imaging Last Impressions Knee X-Ray 02/08/18 1317 Signed Impressions: Service Date/Time: January 14:52 - CONCLUSION: 1. Mild arthritic changes. No acute abnormality is identified. Carlitos Maya MD Head CT 02/08/18 1317 Signed Impressions: Service Date/Time: January 15:17 - CONCLUSION: 1. Mild stable cerebral atrophy. 2. Scattered old tiny lacunar infarcts within the bilateral basal ganglia. 3. Mild periventricular white matter small vessel ischemic changes bilaterally. 4. No acute infarct, acute hemorrhage, midline shift or extra-axial fluid collections. Jack Dinh MD Chest X-Ray 02/08/187 Signed Impressions: Service Date/Time: January 14:52 - CONCLUSION: 1. Bilateral old rib fractures. 2. No displaced acute rib fractures or pneumothorax. 3. No acute abnormality. Noah Douglass MD Sacrum and Coccyx X-Ray 02/08/18 0000 Signed Impressions: Service Date/Time: January 14:52 - CONCLUSION: 1. Diffuse osteopenia with findings concerning for nondisplaced left sacral fractures. Consider CT or MRI examination to confirm this finding as clinically appropriate. 2. Partially imaged right femoral fixation hardware with leatha-hardware lucency suggesting loosening. This is unchanged from prior abdominal radiograph. MD Smith Omalley VTE Risk Assessment Caprini VTE Risk Assessment: Mod/High Risk (score >= 2) Caprini Risk Assessment Model Point Value = 1 Point Value = 2 Point Value = 3 Point Value = 5 Age 41-60 Minor surgery BMI > 25 kg/m2 Swollen legs Varicose veins or History of unexplained or recurrent spontaneous Oral contraceptives or hormone replacement Sepsis (< 1 month) Serious lung disease, including pneumonia (< 1 month) Abnormal pulmonary function Acute myocardial infarction Congestive heart failure (< 1 month) History of inflammatory bowel disease Medical patient at bed rest Age 61-74 Arthroscopic surgery Major open surgery (> 45 min) Laparoscopic surgery (> 45 min) Malignancy Confined to bed (> 72 hours) Immobilizing plaster cast Central venous access Age >= 75 History of VTE Family history of VTE Factor V Leiden Prothrombin [id number] Lupus anticoagulant Anticardiolipin antibodies Elevated serum homocysteine Heparin-induced thrombocytopenia Other congenital or acquired thrombophilia Stroke (< 1 month) Elective arthroplasty Hip, pelvis, or leg fracture Acute spinal cord injury (< 1 month) Prophylaxis Regimen Total Risk Factor Score Risk Level Prophylaxis Regimen 0-1 Low Early ambulation 2 Moderate Order ONE of the following: *Sequential Compression Device (SCD) *Heparin 5000 units SQ BID 3-4 Higher Order ONE of the following medications: *Heparin 5000 units SQ TID *Enoxaparin/Lovenox 40 mg SQ daily (WT < 150 kg, CrCl > 30 mL/min) *Enoxaparin/Lovenox 30 mg SQ daily (WT < 150 kg, CrCl > 10-29 mL/min) *Enoxaparin/Lovenox 30 mg SQ BID (WT < 150 kg, CrCl > 30 mL/min) AND/OR *Sequential Compression Device (SCD) 5 or more Highest Order ONE of the following medications: *Heparin 5000 units SQ TID (Preferred with Epidurals) *Enoxaparin/Lovenox 40 mg SQ daily (WT < 150 kg, CrCl > 30 mL/min) *Enoxaparin/Lovenox 30 mg SQ daily (WT < 150 kg, CrCl > 10-29 mL/min) *Enoxaparin/Lovenox 30 mg SQ BID (WT < 150 kg, CrCl > 30 mL/min) AND *Sequential Compression Device (SCD) Assessment and Plan Problem List: (1) Hyperkalemia ICD Code: E87.5 - Hyperkalemia (2) Acute renal failure ICD Code: N17.9 - Acute kidney failure, unspecified (3) Leukocytosis ICD Code: D72.829 - Elevated white blood cell count, unspecified (4) Congestive heart failure ICD Code: I50.9 - Heart failure, unspecified (5) Heart failure ICD Code: I50.9 - Heart failure, unspecified Status: Acute (6) Symptomatic anemia ICD Code: D64.9 - Anemia, unspecified Status: Acute (7) Anemia ICD Code: D64.9 - Anemia, unspecified Status: Acute Assessment and Plan 72-year-old female admitted secondary to severe anemia with acute renal failure hyperkalemia, and leukocytosis. Severe anemia Acute blood loss anemia, suspected Stool studies pending Transfuse 2 units packed red blood cells Follow CBC Hypoglycemia D50 provided Follow blood sugars Resume diet Acute renal failure Hospital chronic kidney disease in the past IV hydration Follow electrolytes Avoid nephrotoxins Nephrology consult Leukocytosis UA pending Rocephin Follow CBC Hyperkalemia IV hydration Follow potassium level Rheumatoid Arthritis Lupus Hold baseline treatments for now Follow clinically Coronary artery disease [facility] Angina Elevated BNP Congestive heart failure Continue baseline treatments Follow clinically No chest pain when seen IV fluids are being given to attempt to improve renal function Will stop IV fluids and consider diuresis if fluid overload symptoms including edema or dyspnea begin Hypertension Continue baseline treatment Follow blood pressures Adjust treatments as needed COPD No exacerbation when seen Continue As needed albuterol Nephrolithiasis history Asymptomatic Follow clinically Hyperlipidemia Continue present treatment Follow as an outpatient Depression Change to baseline management DVT prophylaxis Right leg DVT Patient may be actively bleeding right now Hold Eliquis Hold Plavix No SCDs given active DVT Physician Certification 2 Midnight Certification Type: Admission for Inpatient Services Order for Inpatient Services The services are ordered in accordance with Medicare regulations or non- Medicare payer requirements, as applicable. In the case of services not specified as inpatient-only, they are appropriately provided as inpatient services in accordance with the 2-midnight benchmark. Estimated LOS (days): 4 days is the estimated time the patient will need to remain in the hospital, assuming treatment plan goals are met and no additional complications. Post-Hospital Plan: Home Carlitos Simental MD Feb 08, 2018 16:26
[2018-02-08 16:50] LABS: BILIRUBIN, URINE NEG (NEG); BLOOD, URINE TRACE (NEG); GLUCOSE,URINE NEG (NEG); KETONE, URINE NEG (NEG); NITRITE,URINE NEG (NEG); PH, URINE 5.5 (5.0-8.5); URINE COLOR YELLOW (YELLW/STRAW); URINE LEUKOCYTE ESTERASE NEG (NEG)
[2018-02-08 17:00] LABS: AMORPHOUS SEDIMENT, URINE LARGE; BACTERIA, URINE FEW /hpf; RBC, URINE 0-3 /hpf (0-3); SQUAMOUS EPITHELIAL CELL URINE 0-5 /hpf (0-5); WBC, URINE 0-2 /hpf (0-5)
[2018-02-08] MEDS: SODIUM CHLOR 0.9% 250 ML INJ 250 ML IV ONE ×2 (18:00→18:18)
[2018-02-08] MEDS: SODIUM CHLOR 0.9% 1000 ML INJ 1,000 ML IV SCH (18:04)
[2018-02-08] MEDS ORDERED: DEXTROSE 50% IN WATER 50 ML VIAL(D50) IV PUSH PRN (18:15)
[2018-02-08] MEDS ORDERED: RESP: ALBUTEROL 2.5 MG/3 ML NEB (PRN) NEB (18:15)
[2018-02-08] MEDS ORDERED: GLUCAGON 1 MG/ML VIAL OTHER PRN (18:15)
[2018-02-08] MEDS: SODIUM CHLORIDE 0.9% FLUSH 10 ML FLUSH IV FLUSH SCH (20:54)
[2018-02-09] VITALS (7 sets, daily range): BP systolic 125–170; BP diastolic 51–76; PULSE 64–97; RESP 16–20; TEMP 97.8–99.2; O2SAT 92–100
[2018-02-09] MEDS: SODIUM CHLOR 0.9% 1000 ML INJ 1,000 ML IV SCH (02:40)
[2018-02-09 06:03] LABS: BASOPHIL % 0.2 % (0.0-2.0); EOSINOPHIL % 0.2 % (0.0-4.0); HEMATOCRIT 26.5 % (35.0-46.0); HEMOGLOBIN 8.6 GM/DL (11.6-15.3); LYMPH % 5.6 % (9.0-44.0); LYMPHOCYTE # 0.9 TH/MM3 (1.0-4.8); MEAN CELL VOLUME 86.5 FL (80.0-100.0); MEAN CORPUSCULAR HEMOGLOBIN 28.2 PG (27.0-34.0); MEAN CORPUSCULAR HGB CONC 32.6 % (32.0-36.0); MEAN PLATELET VOLUME 6.9 FL (7.0-11.0); MONO % 8.5 % (0.0-8.0); MONOCYTE # 1.4 TH/MM3 (0-0.9); NEUT % 85.5 % (16.0-70.0); PLATELET COUNT 244 TH/MM3 (150-450); RED BLOOD COUNT 3.07 MIL/MM3 (4.00-5.30); RED CELL DISTRIBUTION WIDTH 16.1 % (11.6-17.2); WHITE BLOOD COUNT 16.3 TH/MM3 (4.0-11.0)
[2018-02-09 06:11] LABS: CHLORIDE 109 MEQ/L (98-107); SODIUM (NA) 139 MEQ/L (136-145)
[2018-02-09 06:45] LABS: ALBUMIN 2.6 GM/DL (3.4-5.0); ALKALINE PHOSPHATASE 101 U/L (45-117); ALT (GPT) 15 U/L (10-53); AST (GOT) 24 U/L (15-37); BLOOD UREA NITROGEN 108 MG/DL (7-18); CALCIUM 7.8 MG/DL (8.5-10.1); GLOMERULAR FILTRATION RATE 11 ML/MIN (>89); GLUCOSE,RANDOM 64 MG/DL (74-106); TOTAL BILIRUBIN ADULT 0.5 MG/DL (0.2-1.0); TOTAL PROTEIN 6.7 GM/DL (6.4-8.2)
[2018-02-09] MEDS: SODIUM CHLORIDE 0.9% FLUSH 10 ML FLUSH IV FLUSH SCH ×2 (08:36→21:00)
[2018-02-09] MEDS: LEVOFLOXACIN 500 MG PREMIX INJ 100 ML IV SCH (10:20)
--- NOTE | 2018-02-09 14:30 | EKG ---
Date Performed: 02/08/2018 Time Performed: 15:42:35 PTAGE: 72 years EKG: Sinus rhythm MARKED LEFT AXIS DEVIATION LEFT VENTRICULAR HYPERTROPHY AND ST-T CHANGE ABNORMAL ECG PREVIOUS TRACING : 12/14/2017 04.59 Significant baseline artifact. Voltage is increased since p rior tracing, but otherwise largely unchanged. DOCTOR: Pradeep Brandon Interpretating Date/Time 02/09/2018 14:29:14
[2018-02-09] MEDS: SODIUM BICARBONATE 8.4% INJ 75 MEQ in SODIUM CHLOR 0.45% 1000 ML INJ 1,000 ML IV SCH (15:24)
[2018-02-09] MEDS ORDERED: SODIUM POLYSTYRENE SULFONATE SUSP 15 GM/60 ML CUP PO ONE (15:30)
--- NOTE | 2018-02-09 16:17 | HHI.PR ---
Subjective Remarks Mental status is worse and patient has tremors this morning. Etiology is likely related to renal failure as patient has not improved despite hydration. Due to lack of benefit from hydration hydration will be discontinued because patient has CHF and has evidence of pulmonary edema starting. Objective Vital Signs Date Time Temp Pulse Resp B/P (MAP) Pulse Ox O2 Delivery O2 Flow Rate FiO2 02/09/18 12:00 99.2 91 20 148/65 (92) 92 02/09/18 08:00 98.5 87 20 145/72 (96) 100 02/09/18 04:00 98.6 81 16 144/51 (82) 100 02/09/18 02:36 97.8 76 17 125/76 98 02/08/18 23:27 97.9 77 17 100/60 100 02/08/18 23:14 97.9 18 109/64 100 02/08/18 20:40 100 02/08/18 20:15 97.9 101 16 110/76 02/08/18 20:00 97.9 101 16 110/76 (87) 80 02/08/18 19:20 100 Nasal Cannula 3.00 02/08/18 17:30 97.5 62 16 108/52 (70) 84 I/O 02/08/18 02/08/18 02/08/18 02/09/18 02/09/18 02/09/18 07:00 15:00 23:00 07:00 15:00 23:00 Intake Total 500 ml 1020 ml 1240 ml Balance 500 ml 1020 ml 1240 ml Intake Oral 180 ml 240 ml IV Total 500 ml 1000 ml Packed Cells 800 ml Blood Product IV Normal Saline Flush 40 ml # Voids 3 1 2 # Bowel Movements 1 0 3 Result Diagram: 02/09/183 02/09/183 Objective Remarks GENERAL: NAD, A&Ox1, tremor. HEAD: Normocephalic. NECK: Supple, trachea midline. No lymphadenopathy. EYES: No scleral icterus. No injection or drainage. CARDIOVASCULAR: Regular rate and rhythm without murmurs, gallops, or rubs. RESPIRATORY: Breath sounds equal bilaterally. No accessory muscle use. GASTROINTESTINAL: Abdomen soft, non-tender, nondistended. MUSCULOSKELETAL: No cyanosis, or edema. SKIN: Warm and dry. NEURO: No focal neurological deficitis. A/P Problem List: (1) Symptomatic anemia ICD Code: D64.9 - Anemia, unspecified Status: Acute (2) Acute renal failure ICD Code: N17.9 - Acute kidney failure, unspecified (3) Heart failure ICD Code: I50.9 - Heart failure, unspecified Status: Acute (4) Congestive heart failure ICD Code: I50.9 - Heart failure, unspecified (5) Leukocytosis ICD Code: D72.829 - Elevated white blood cell count, unspecified Assessment and Plan 72-year-old female admitted secondary to severe anemia with acute renal failure hyperkalemia, and leukocytosis. Severe anemia Acute blood loss anemia, suspected Stool studies pending Transfused 2 units packed red blood cells 02/08/18 Hemoglobin levels improved Follow CBC Hypoglycemia Resolved with D50. Follow blood sugars Continue diet. Acute renal failure Unimproved History of chronic kidney disease in the past IV hydration discontinued due to CHF symptoms Follow electrolytes Avoid nephrotoxins Nephrology following Leukocytosis UA pending Rocephin Follow CBC Hyperkalemia IV hydration Follow potassium level Rheumatoid Arthritis Lupus Hold baseline treatments for now Follow clinically Coronary artery disease Old [place] Angina Elevated BNP Congestive heart failure Continue baseline treatments Follow clinically No chest pain when seen IV fluids discontinued Hypertension Continue baseline treatment Follow blood pressures Adjust treatments as needed COPD No exacerbation when seen Continue As needed albuterol Nephrolithiasis history Asymptomatic Follow clinically Hyperlipidemia Continue present treatment Follow as an outpatient Depression Change to baseline management DVT prophylaxis Right leg DVT Patient may be actively bleeding right now Hold Eliquis Hold Plavix SCDs held due to blisters Carlitos Gamble MD Feb 09, 2018 16:17
[2018-02-09] MEDS: MORPHINE SULFATE 2 MG/ML INJ IV PUSH PRN ×2 (17:46→23:54)
--- NOTE | 2018-02-09 17:49 | RADRPT ---
EXAM DATE/TIME: 02/09/2018 16:57 [facility] COMPARISON: No previous studies available for comparison. INDICATIONS : Fall 4 days ago. Evaluate for sacrum fracture. Abnormal x-ray. ORAL CONTRAST: No oral contrast ingested. RADIATION DOSE: 15.09 CTDIvol (mGy) MEDICAL HISTORY : Chronic obstructive pulmonary disease. Myocardial infarction. Deep venous thrombosis. Lupus. SURGICAL HISTORY : Bilateral hip replacements. ENCOUNTER: Initial ACUITY: 4 - 6 days PAIN SCALE: 7/10 LOCATION: Sacrum TECHNIQUE: Volumetric scanning of the pelvis was performed. Using automated exposure control and adjustment of the mA and/or kV according to patient size, radiation dose was kept as low as reasonably achievable t o obtain optimal diagnostic quality images. DICOM format image data is available electronically for review and comparison. FINDINGS: There is an left-sided sacral alar fracture. There is also a fracture of the right pubic bone and a r elatively nondisplaced fracture of the anterior column left acetabulum. There is also a mildly displaced fracture through the right inferior pubic ramus. Hairline fracture l eft inferior pubic ramus as well. His previous fixation of both proximal femora. Within the pelvis is constipation. Kidney is present in the right lower quadrant with medullary nephr ocalcinosis. Thompson catheter in bladder. CONCLUSION: #1. Fractures of the left sacral ala, right pubic bone, left and right pubic rami and anterior column left acetabulum with mild displacement. #2. Diffuse osteopenia. #3. Previous fixation both proximal femora. #4. 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 Manjit Layton MD on February 09, 2018 at 17:39 Board Certified Radiologist. This report was verified electronically.
[2018-02-09] MEDS ORDERED: MELATONIN 5 MG TAB PO PRN (18:30)
[2018-02-10 00:18] VITALS: BP 181/85; PULSE 101; RESP 16; TEMP 97.9; O2SAT 91
[2018-02-10] MEDS: SODIUM BICARBONATE 8.4% INJ 75 MEQ in SODIUM CHLOR 0.45% 1000 ML INJ 1,000 ML IV SCH ×3 (01:52→23:35)
[2018-02-10 04:00] VITALS: BP 180/84; PULSE 106; RESP 18; TEMP 97.7; O2SAT 93
[2018-02-10] MEDS: MORPHINE SULFATE 2 MG/ML INJ IV PUSH PRN ×5 (05:05→22:04)
[2018-02-10 08:00] VITALS: BP 181/76; PULSE 102; PULSE 94; RESP 24; TEMP 98.2; O2SAT 96
[2018-02-10] MEDS: SODIUM CHLORIDE 0.9% FLUSH 10 ML FLUSH IV FLUSH SCH ×2 (08:29→21:54)
[2018-02-10 09:02] LABS: AUTOMATED NEUTROPHIL # 17.5 TH/MM3 (1.8-7.7); BASOPHIL # 0.4 TH/MM3 (0-0.2); EOSINOPHIL % 0.1 % (0.0-4.0); HEMATOCRIT 28.2 % (35.0-46.0); HEMOGLOBIN 9.1 GM/DL (11.6-15.3); LYMPH % 2.6 % (9.0-44.0); LYMPHOCYTE # 0.5 TH/MM3 (1.0-4.8); MEAN CELL VOLUME 86.5 FL (80.0-100.0); MEAN CORPUSCULAR HGB CONC 32.4 % (32.0-36.0); MEAN PLATELET VOLUME 6.8 FL (7.0-11.0); MONO % 4.9 % (0.0-8.0); MONOCYTE # 0.9 TH/MM3 (0-0.9); NEUT % 90.4 % (16.0-70.0); PLATELET COUNT 234 TH/MM3 (150-450); RED BLOOD COUNT 3.26 MIL/MM3 (4.00-5.30); WHITE BLOOD COUNT 19.3 TH/MM3 (4.0-11.0)
[2018-02-10 12:06] LABS: COMPLEMENT C3 106 MG/DL (90-180); COMPLEMENT C4 29 MG/DL (10-40)
[2018-02-10 14:44] LABS: ALBUMIN 2.2 GM/DL (3.4-5.0); CREATININE 3.3 MG/DL (0.50-1.00); PHOSPHORUS 7.5 MG/DL (2.5-4.9); TOTAL BILIRUBIN ADULT 0.3 MG/DL (0.2-1.0); TOTAL PROTEIN 6.1 GM/DL (6.4-8.2)
[2018-02-10 14:55] LABS: CALCIUM 6.9 MG/DL (8.5-10.1)
[2018-02-10 14:56] LABS: CALCIUM-PROTEIN CORRECTED 7.4 MG/DL (8.5-10.1)
[2018-02-10 16:00] VITALS: BP 174/89; PULSE 96; RESP 20; TEMP 97.2; O2SAT 93
--- NOTE | 2018-02-10 16:08 | HHI.PR ---
Subjective Remarks Mental status improved today. Patient complains of persisting pain. No bowel movement yet, no stool testing done yet. Anemia is holding steady after transfusion. Renal function does show some signs of improvement today. Objective Vital Signs Date Time Temp Pulse Resp B/P (MAP) Pulse Ox O2 Delivery O2 Flow Rate FiO2 02/10/18 08:00 98.2 94 24 181/76 (111) 96 02/10/18 08:00 102 02/10/18 04:00 97.7 106 18 180/84 (116) 93 02/10/18 00:18 97.9 101 16 181/85 (117) 91 02/09/18 20:23 98.4 97 18 163/74 (103) 97 02/09/18 16:31 95 Nasal Cannula 3.00 I/O 02/09/18 02/09/18 02/09/18 02/10/18 02/10/18 02/10/18 07:00 15:00 23:00 07:00 15:00 23:00 Intake Total 1020 ml 1240 ml 1000 ml Output Total 650 ml 850 ml Balance 1020 ml 1240 ml -650 ml 150 ml Intake Oral 180 ml 240 ml 0 ml IV Total 1000 ml 1000 ml Packed Cells 800 ml Blood Product IV Normal Saline Flush 40 ml Output Urine Total 650 ml 850 ml # Voids 1 2 # Bowel Movements 0 3 Result Diagram: 02/10/18 0825 02/10/18 1350 Objective Remarks GENERAL: NAD, A&Ox2, tremor. HEAD: Normocephalic. NECK: Supple, trachea midline. No lymphadenopathy. EYES: No scleral icterus. No injection or drainage. CARDIOVASCULAR: Regular rate and rhythm without murmurs, gallops, or rubs. RESPIRATORY: Breath sounds equal bilaterally. No accessory muscle use. GASTROINTESTINAL: Abdomen soft, non-tender, nondistended. MUSCULOSKELETAL: No cyanosis, or edema. SKIN: Warm and dry. NEURO: No focal neurological deficitis. A/P Problem List: (1) Symptomatic anemia ICD Code: D64.9 - Anemia, unspecified Status: Acute (2) Acute renal failure ICD Code: N17.9 - Acute kidney failure, unspecified (3) Heart failure ICD Code: I50.9 - Heart failure, unspecified Status: Acute (4) Congestive heart failure ICD Code: I50.9 - Heart failure, unspecified (5) Leukocytosis ICD Code: D72.829 - Elevated white blood cell count, unspecified Assessment and Plan 72-year-old female admitted secondary to severe anemia with acute renal failure hyperkalemia, and leukocytosis. Pending determination of patient's fractures would warrant surgery, after this decision is made whether or not patient is a surgical candidate with the next question. Labs reviewed. Hemoglobin shows stability. Renal function shows improvement. Continue to monitor labs. Labs ordered for further monitoring. Since injury to monitor CBC and BMP. Blood pressures have elevated again at home treatments will be resumed. Severe anemia Acute blood loss anemia, suspected Stool studies pending Transfused 2 units packed red blood cells 02/08/18 Hemoglobin levels improved Follow CBC Hypoglycemia Resolved with D50. Follow blood sugars Continue diet. Acute renal failure Unimproved History of chronic kidney disease in the past IV hydration discontinued due to CHF symptoms Follow electrolytes Avoid nephrotoxins Nephrology following Leukocytosis UA pending Rocephin Follow CBC Hyperkalemia IV hydration Follow potassium level Rheumatoid Arthritis Lupus Hold baseline treatments for now Follow clinically Coronary artery disease [place] Angina Elevated BNP Congestive heart failure Continue baseline treatments Follow clinically No chest pain when seen IV fluids discontinued Hypertension Continue baseline treatment Follow blood pressures Adjust treatments as needed COPD No exacerbation when seen Continue As needed albuterol Nephrolithiasis history Asymptomatic Follow clinically Hyperlipidemia Continue present treatment Follow as an outpatient Depression Change to baseline management DVT prophylaxis Right leg DVT Patient may be actively bleeding right now Hold Eliquis Hold Plavix SCDs held due to blisters Carlitos Gamble MD Feb 10, 2018 16:08
[2018-02-10] MEDS ORDERED: RESP: ALBUTEROL 2.5 MG/3 ML NEB (PRN) INH (16:30)
[2018-02-10] MEDS ORDERED: CALCIUM CARBONATE 1.25 GM (CA 500 MG) TAB PO ONE (17:00)
[2018-02-10] MEDS ORDERED: predniSONE 20 MG TAB PO ONE (17:00)
[2018-02-10] MEDS: cloNIDine HCL 0.1 MG TAB PO PRN (17:03)
--- NOTE | 2018-02-10 19:11 | HHI.NPPN ---
Subjective Interval History ongoing fatigue, confusion. Objective Data Data 02/10/18 02/11/18 19:00 07:00 Intake Total 1138 ml Output Total 1050 ml Balance 88 ml Intake Oral 350 ml IV Total 788 ml Output Urine Total 1050 ml # Bowel Movements 0 Vital Signs Date Time Temp Pulse Resp B/P (MAP) Pulse Ox O2 Delivery O2 Flow Rate FiO2 02/10/18 16:00 97.2 96 20 174/89 (117) 93 02/10/18 08:00 98.2 94 24 181/76 (111) 96 02/10/18 08:00 102 02/10/18 04:00 97.7 106 18 180/84 (116) 93 02/10/18 00:18 97.9 101 16 181/85 (117) 91 02/09/18 20:23 98.4 97 18 163/74 (103) 97 -: 02/10/18 0825 02/10/18 1350 Physical Exam General Appearance: No Acute Distress, Malnourished Throat Throat Exam: Oral Mucosa [place] & Moist Neck Neck Exam: Neck Supple Pulmonary Resp Exam: Diminished Breath Sounds Cardiology CV Exam: Regular Gastrointestinal/Abdomen GI Exam: Soft, Non-Tender, Bowel Sounds Present Integumentary Skin Exam: Dry, Intact Extremeties Extremities Exam: No Edema Neurologic Neuro Exam: Awake Assessment/Plan Problem List: (1) Acute renal failure ICD Codes: N17.9 - Acute kidney failure, unspecified Plan: 11/2017 Creatinine 1.9 -3.1 Creatinine 2.69 12/23/2017 History of medullary sponge kidney with multiple kidney stones in the past, but nothing in recent years. She also has history of lupus Creatinine 4.1 on admission - improved to 3.3 today. Suspect RADHA on CKD with element of volume depletion. Spot protein/creatinine ratio with 9 grams proteinuria. Will repeat to confirm. Complements wnl, DS DNA pending, Will check SPEP as well, check renal USX. Continue IVFs for now - on 11/28 NS + 75meq NaHCO3 at 100cc/hour Also on lasix 20mg PO every other day. (2) Hyperkalemia ICD Codes: E87.5 - Hyperkalemia Plan: improved, given Kayexalate yesterday Continue to monitor (3) Anemia ICD Codes: D64.9 - Anemia, unspecified Status: Acute Plan: transfused 3/15 - continue to monitor. (4) CAD (coronary artery disease) ICD Codes: I25.10 - Atherosclerotic heart disease of [place] coronary artery without angina pectoris Status: Chronic Plan: asymptomatic, continue to monitor. (5) HTN (hypertension) ICD Codes: I10 - Essential (primary) hypertension Status: Chronic Plan: SBP 180s Will add metoprolol Problem Qualifiers (1) Anemia: Qualified Codes: N18.9 - Chronic kidney disease, unspecified; D63.1 - Anemia in chronic kidney disease Carlitos Ramirez MD Feb 10, 2018 19:10
--- NOTE | 2018-02-10 19:50 | PD.CONS ---
cc: Giovany Johnson MD HPI Service Orthopedic Surgeons Consult Requested By Dr. Simental Reason for Consult Fracture sacral ala Primary Care Physician Malcolm Gay MD Admission Diagnosis anemia, hyperkalemia, acute on chronic kidney injury Diagnoses: (1) Hyperkalemia (2) Acute renal failure (3) Leukocytosis (4) Congestive heart failure (5) Heart failure (6) Symptomatic anemia (7) Anemia Chief Complaint: Bilateral lower leg pain History of Present Illness 72-year-old female with PMH of CHF, COPD, lupus, artery, hypertension, DVT right leg, CAD status post stenting, on Eliquis presents to the ED for evaluation of altered mental status. Daughter is at bedside and states that her mom seems more confused over the last few days. She states that her mom had a fall 4 days ago, struck her head but did not lose consciousness. The patient states that she lost her balance and fell, landing on the tile floor. On presentation she complained of left hip, buttocks and left knee pain. She endorses urinary urgency, incontinence, dysuria. She denies headaches, dizziness, chest pain, palpitations, shortness of breath, abdominal pain, nausea or vomiting. Family at the bedside reveals the patient is a household ambulator only. At the present time she is complaining only of pain below the knees bilaterally but worse on the left. She denies pain in the low back or pelvis region. She did undergo radiographic studies which revealed pubic rami fractures and a sacral fracture. Orthopedic consultation was therefore requested. Review of Systems Reviewed and well outlined in the medical record Past Family Social History Past Medical History Rheumatoid Arthritis Lupus Depression Coronary artery disease [place] Congestive heart failure Hypertension Angina COPD Nephrolithiasis history Right leg DVT Parathyroidectomy Hyperlipidemia Past Surgical History Cardiac stent Parathyroidectomy Bilateral cataract surgery Allergies: Coded Allergies: cephalexin (Verified Allergy, Unknown, rash, 02/08/18) diatrizoate meglumine (Verified Allergy, Unknown, rash, 02/08/18) fluconazole (Verified Allergy, Unknown, rash, 02/08/18) gadobenic acid (Verified Allergy, Unknown, rash, 02/08/18) gadodiamide (Verified Allergy, Unknown, rash, 02/08/18) gadoteridol (Verified Allergy, Unknown, rash, 02/08/18) iodixanol (Verified Allergy, Unknown, rash, 02/08/18) iohexol (Verified Allergy, Unknown, rash, 02/08/18) pravastatin (Verified Allergy, Unknown, rash, 02/08/18) Active Ordered Medications Current Medications Medications (Trade) Dose Ordered Sig/Chris Route Start Time Stop Time Status Last Admin (NS Flush) 2 ml UNSCH PRN IV FLUSH 02/08/18 15:15 (NS Flush) 2 ml BID IV FLUSH 02/08/18 21:00 02/09/18 08:36 (Zofran Inj) 4 mg Q6H PRN IVP 02/08/18 16:00 (Morphine Inj) 2 mg Q3H PRN IV PUSH 02/08/18 16:00 02/10/18 16:58 (Morphine Inj) 4 mg Q3H PRN IV PUSH 02/08/18 16:00 02/10/18 11:52 (Narcan Inj) 0.4 mg UNSCH PRN IV PUSH 02/08/18 15:15 (Milk Of Magnesia Liq) 30 ml Q12H PRN PO 02/08/18 16:00 (D50w (Vial) Inj) 50 ml UNSCH PRN IV PUSH 02/08/18 18:15 (Glucagon Inj) 1 mg UNSCH PRN OTHER 02/08/18 18:15 Levofloxacin/ Dextrose 100 ml @ 100 mls/hr Q48H IV 02/09/18 10:00 02/09/18 10:20 Sodium Bicarbonate 75 meq/Sodium Chloride 1,075 ml @ 100 mls/hr [id number] IV 02/09/18 15:00 02/10/18 15:19 (Melatonin) 5 mg HS PRN PO 02/09/18 18:30 02/10/18 01:52 (Drisdol) 50,000 units Q7D PO 02/11/18 09:00 (Pepcid) 10 mg BID PO 02/10/18 21:00 (Lasix) 20 mg Q2D PO 02/11/18 09:00 (Apresoline) 10 mg Q8HR PO 02/10/18 22:00 (Plaquenil) 200 mg DAILY PO 02/11/18 09:00 (Remeron) 30 mg HS PO 02/10/18 21:00 (Deltasone) 40 mg DAILY PO 02/11/18 09:00 (Zoloft) 50 mg DAILY PO 02/11/18 09:00 (Albuterol Neb) 2.5 mg Q4HR NEB PRN INH 02/10/18 16:30 (Symbicort 160-4.5 Mcg Inh) 2 puff Q12HR INH 02/10/18 21:00 (Oscal) 500 mg DAILY PO 02/11/18 09:00 (Catapres) 0.1 mg Q6H PRN PO 02/10/18 16:15 02/10/18 17:03 (Lopressor) 25 mg Q12HR PO 02/10/18 21:00 Reported Meds & Active Scripts Active Nebulizer 1 Mis Mis Ea .ROUTE DIRECTED Pepcid (Famotidine) 20 Mg Tab 20 Mg PO BID Lasix (Furosemide) 20 Mg Tab 20 Mg PO Q2D Ergocalciferol 50,000 Unit Cap 50,000 Units PO Q7D Prednisone 20 Mg Tab 40 Mg PO DAILY [Budeson-Formot 160-4.5 Mcg Inh] 60 PUFF Aero 2 Puff INH Q12HR Oyster Calcium (Oyster Shell) 500 Mg Calcium (1250 Mg) Tab 500 Mg PO DAILY Hydralazine HCl 10 Mg Tablet 10 Mg PO Q8HR [Albuterol Neb] 2.5 MG/3 ML Nebu 2.5 Mg INH Q4HR NEB PRN Eliquis (Apixaban) 5 Mg Tab 5 Mg PO BID Plavix (Clopidogrel Bisulfate) 75 Mg Tab 75 Mg PO DAILY Oxygen (O2) (Miscellaneous Medication) Inha Liter MYKEL.CANULA CONTINUOUS Oxygen Concentrator Portable Gaseous 2 L/min via Nasal Canula Continuous For 99 months Reported Mirtazapine 30 Mg Tab 30 Mg PO HS Sertraline (Sertraline HCl) 50 Mg Tab 50 Mg PO DAILY Plaquenil (Hydroxychloroquine Sulfate) 200 Mg Tab 200 Mg PO DAILY Take with food Social History Alcohol Use: No Tobacco Use: Yes Substance Use: No Physical Exam Vital Signs Vital Signs Date Time Temp Pulse Resp B/P (MAP) Pulse Ox O2 Delivery O2 Flow Rate FiO2 02/10/18 16:00 97.2 96 20 174/89 (117) 93 02/10/18 08:00 98.2 94 24 181/76 (111) 96 02/10/18 08:00 102 02/10/18 04:00 97.7 106 18 180/84 (116) 93 02/10/18 00:18 97.9 101 16 181/85 (117) 91 02/09/18 20:23 98.4 97 18 163/74 (103) 97 Physical Exam The patient is awake and alert and answers questions properly. Family is at the bedside. She is moderately cachectic appearing. There is no swelling but slight discoloration of the right foot and ankle. There is no specific palpable tenderness. Passive and active range of motion of both hips is nontender. She has restricted mobility of both ankles which she states is chronic. There is no focal neurological deficit. She has no other obvious signs of extremity injury. Laboratory Laboratory Tests Test 02/09/18 22:00 02/10/18 08:25 02/10/18 13:50 Urine Osmolality 320 Urine Random Creatinine 33 Urine Random Total Protein 322 Urine Random Sodium 49 Urine Protein/Creatinine Ratio 9.76 White Blood Count 19.3 Red Blood Count 3.26 Hemoglobin 9.1 Hematocrit 28.2 Mean Corpuscular Volume 86.5 Mean Corpuscular Hemoglobin 28.0 Mean Corpuscular Hemoglobin Concent 32.4 Red Cell Distribution Width 17.0 Platelet Count 234 Mean Platelet Volume 6.8 Neutrophils (%) (Auto) 90.4 Lymphocytes (%) (Auto) 2.6 Monocytes (%) (Auto) 4.9 Eosinophils (%) (Auto) 0.1 Basophils (%) (Auto) 2.0 Neutrophils # (Auto) 17.5 Lymphocytes # (Auto) 0.5 Monocytes # (Auto) 0.9 Eosinophils # (Auto) 0.0 Basophils # (Auto) 0.4 CBC Comment DIFF FINAL Differential Comment Complement C3 106 Complement C4 29 Blood Urea Nitrogen 92 Creatinine 3.30 Random Glucose 94 Total Protein 6.1 Albumin 2.2 Calcium Level 6.9 Phosphorus Level 7.5 Alkaline Phosphatase 104 Aspartate Amino Transf (AST/SGOT) 30 Alanine Aminotransferase (ALT/SGPT) 17 Total Bilirubin 0.3 Sodium Level 142 Potassium Level 3.8 Chloride Level 111 Carbon Dioxide Level 18.0 Anion Gap 13 Estimat Glomerular Filtration Rate 14 Protein Corrected Calcium 7.4 Date/Time Source Procedure Growth Status 02/08/18 16:30 Urine Catheterized Urine Urine Culture - Final NO GROWTH IN 48 HOURS. Complete Result Diagram: 02/10/18 0825 02/10/18 1350 Imaging Last [address] 02/09/18 0000 Signed Impressions: Service Date/Time: Friday, February 09, 2018 16:57 - CONCLUSION: #1. Fractures of the left sacral ala, right pubic bone, left and right pubic rami and anterior column left acetabulum with mild displacement. #2. Diffuse osteopenia. #3. Previous fixation both proximal femora. #4. 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 Manjit Layton MD Knee X-Ray 02/08/181316 Signed Impressions: Service Date/Time: January 14:52 - CONCLUSION: 1. Mild arthritic changes. No acute abnormality is identified. Carlitos Maya MD Head CT 02/08/181316 Signed Impressions: Service Date/Time: January 15:17 - CONCLUSION: 1. Mild stable cerebral atrophy. 2. Scattered old tiny lacunar infarcts within the bilateral basal ganglia. 3. Mild periventricular white matter small vessel ischemic changes bilaterally. 4. No acute infarct, acute hemorrhage, midline shift or extra-axial fluid collections. Jack Dinh MD Chest X-Ray 02/08/181316 Signed Impressions: Service Date/Time: January 14:52 - CONCLUSION: 1. Bilateral old rib fractures. 2. No displaced acute rib fractures or pneumothorax. 3. No acute abnormality. Noha Douglass MD Sacrum and Coccyx X-Ray 02/08/18 0000 Signed Impressions: Service Date/Time: January 14:52 - CONCLUSION: 1. Diffuse osteopenia with findings concerning for nondisplaced left sacral fractures. Consider CT or MRI examination to confirm this finding as clinically appropriate. 2. Partially imaged right femoral fixation hardware with leatha-hardware lucency suggesting loosening. This is unchanged from prior abdominal radiograph. Noah Douglass MD Assessment & Plan Problem List: (1) Fracture of sacrum ICD Codes: S32.10XA - Unspecified fracture of sacrum, initial encounter for closed fracture (2) Bilateral fracture of pubic rami ICD Codes: S32.591A - Other specified fracture of right pubis, initial encounter for closed fracture; S32.592A - Other specified fracture of left pubis , initial encounter for closed fracture (3) Osteoporosis ICD Codes: M81.0 - Age-related osteoporosis without current pathological fracture (4) HTN (hypertension) ICD Codes: I10 - Essential (primary) hypertension Status: Chronic (5) CAD (coronary artery disease) ICD Codes: I25.10 - Atherosclerotic heart disease of [place] coronary artery without angina pectoris Status: Chronic (6) Anemia ICD Codes: D64.9 - Anemia, unspecified Status: Acute Qualifiers: Qualified Codes: N18.9 - Chronic kidney disease, unspecified; D63.1 - Anemia in chronic kidney disease (7) Acute renal failure ICD Codes: N17.9 - Acute kidney failure, unspecified (8) Heart failure ICD Codes: I50.9 - Heart failure, unspecified Status: Acute (9) Congestive heart failure ICD Codes: I50.9 - Heart failure, unspecified (10) COPD (chronic obstructive pulmonary disease) ICD Codes: J44.9 - Chronic obstructive pulmonary disease, unspecified Status: Chronic (11) Left acetabular fracture ICD Codes: S32.402A - Unspecified fracture of left acetabulum, initial encounter for closed fracture Assessment and Plan The findings were discussed with the patient and family at the bedside. The patient has nondisplaced fractures in her pelvis and multiple comorbidities. Based on this, nonoperative management is recommended. In addition, at the present time the patient is not complaining of pain in the pelvic region but in her distal lower extremities. The diagnostic possibilities including radiculopathy and a vascular source were discussed. From an orthopedic standpoint, the patient can progress mobilization to tolerance which according to the family was very limited prehospitalization. She can be discharged from an orthopedic standpoint. She should expect slow and gradual improvement with regards to the pelvic fractures and will contact the undersigned as needed if she remains symptomatic. The patient and her family acknowledged full understanding of the problem and the plan of treatment and agree to it. Giovany Johnson MD Feb 10, 2018 19:50
[2018-02-10 20:00] VITALS: BP 176/80; PULSE 98; RESP 17; TEMP 97.8; O2SAT 100
[2018-02-10 20:05] VITALS: O2SAT 95
[2018-02-10] MEDS: FAMOTIDINE 20 MG TAB PO SCH (21:52)
[2018-02-10] MEDS: METOPROLOL TARTRATE 25 MG TAB PO SCH (21:53)
[2018-02-10] MEDS: MIRTAZAPINE 15 MG TAB PO SCH (21:53)
[2018-02-10] MEDS: hydrALAZINE HCL 10 MG TAB PO SCH (21:54)
[2018-02-10] MEDS: BUDESONIDE-FORMOTEROL 160/4.5 MCG INHALER INH SCH (22:27)
[2018-02-11] VITALS (9 sets, daily range): BP systolic 158–193; BP diastolic 75–94; PULSE 65–87; RESP 16–20; TEMP 96.7–98; O2SAT 92–100
[2018-02-11] MEDS: MORPHINE SULFATE 2 MG/ML INJ IV PUSH PRN (01:40)
[2018-02-11] MEDS: hydrALAZINE HCL 10 MG TAB PO SCH ×3 (06:00→21:54)
[2018-02-11] MEDS: SODIUM CHLORIDE 0.9% FLUSH 10 ML FLUSH IV FLUSH SCH ×2 (08:12→21:56)
[2018-02-11] MEDS: BUDESONIDE-FORMOTEROL 160/4.5 MCG INHALER INH SCH ×2 (08:12→21:53)
[2018-02-11] MEDS: FUROSEMIDE 20 MG TAB PO SCH (08:13)
[2018-02-11] MEDS: FAMOTIDINE 20 MG TAB PO SCH ×2 (08:13→21:53)
[2018-02-11] MEDS: HYDROXYCHLOROQUINE SULFATE 200 MG TAB PO SCH (08:13)
[2018-02-11] MEDS: METOPROLOL TARTRATE 25 MG TAB PO SCH ×2 (08:13→21:53)
[2018-02-11] MEDS: CALCIUM CARBONATE 1.25 GM (CA 500 MG) TAB PO SCH (08:13)
[2018-02-11] MEDS: predniSONE 20 MG TAB PO SCH (08:14)
[2018-02-11] MEDS: SERTRALINE HCL 50 MG TAB PO SCH (08:14)
[2018-02-11] MEDS: SODIUM BICARBONATE 8.4% INJ 75 MEQ in SODIUM CHLOR 0.45% 1000 ML INJ 1,000 ML IV SCH ×2 (08:16→21:59)
[2018-02-11] MEDS: LEVOFLOXACIN 500 MG PREMIX INJ 100 ML IV SCH (08:16)
--- NOTE | 2018-02-11 08:26 | RADRPT ---
EXAM DATE/TIME: 02/11/2018 07:46 [facility] COMPARISON: CT ABDOMEN & PELVIS W CONTRAST, December 17, 2017, 12:58. US KIDNEY/RENAL/BLADDER, December 22, 2017, 10:41. INDICATIONS : Increased BUN/Creatnine. MEDICAL HISTORY : Hypertension. Myocardial infarction. Deep venous thrombosis. Arthritis. Lupus. MRSA. COPD. SURGICAL HISTORY : IVC filter. Parathyroid surgery. Cardiac stent. Orthopedic surgery, bilateral femur, right ankle and left wrist. Cardiac catheterization. ENCOUNTER: Subsequent ACUITY: 2 days PAIN SCORE: 0/10 LOCATION: Bilateral flank MEASUREMENTS: RIGHT KIDNEY: 8.5 x 4.2 x 3.6 cm LEFT KIDNEY: Nonvisualized FINDINGS: RIGHT KIDNEY: Renal cortex is diffusely increased in echogenicity but maintains overall normal morphology. Small we ll-circumscribed simple cysts. No evidence of hydronephrosis. Incidental imaging of the right kidney demonstrates multiple echogenic posterior shadowing stones identified within the distended gallbladde r. No evidence gallbladder wall thickening. LEFT KIDNEY: The left kidney is not visualized on this exam secondary to significant bowel gas activity. Recent pr ior CT demonstrated a similar appearance the left kidney. BLADDER: Decompressed with a Thompson catheter identified within the lumen. CONCLUSION: The left kidney is not visualized on this exam secondary to significant adjacent bowel gas activity. Significantly abnormal appearance of the right kidney which is unchanged from prior ultrasound and is consistent with the patient's history of lupus and chronic medical renal disease. Stable cholelithia sis.. Angelic Isidro MD on February 11, 2018 at 8:20 Board Certified Radiologist. This report was verified electronically.
[2018-02-11] MEDS ORDERED: ERGOCALCIFEROL (VIT D2) 50,000 UNIT CAP PO SCH (09:00)
[2018-02-11 09:27] LABS: AUTOMATED NEUTROPHIL # 13.1 TH/MM3 (1.8-7.7); BASOPHIL # 0.5 TH/MM3 (0-0.2); BASOPHIL % 3.1 % (0.0-2.0); EOSINOPHIL % 0.3 % (0.0-4.0); HEMATOCRIT 26.6 % (35.0-46.0); HEMOGLOBIN 8.5 GM/DL (11.6-15.3); LYMPH % 4.9 % (9.0-44.0); LYMPHOCYTE # 0.7 TH/MM3 (1.0-4.8); MEAN CELL VOLUME 86.4 FL (80.0-100.0); MEAN CORPUSCULAR HEMOGLOBIN 27.7 PG (27.0-34.0); MEAN CORPUSCULAR HGB CONC 32.1 % (32.0-36.0); MEAN PLATELET VOLUME 6.1 FL (7.0-11.0); MONO % 6.4 % (0.0-8.0); NEUT % 85.3 % (16.0-70.0); PLATELET COUNT 228 TH/MM3 (150-450); RED BLOOD COUNT 3.08 MIL/MM3 (4.00-5.30); RED CELL DISTRIBUTION WIDTH 16.8 % (11.6-17.2); WHITE BLOOD COUNT 15.3 TH/MM3 (4.0-11.0)
[2018-02-11 10:06] LABS: ALBUMIN 2.2 GM/DL (3.4-5.0); BICARBONATE 18.3 MEQ/L (21.0-32.0); CALCIUM 7.4 MG/DL (8.5-10.1); CREATININE 2.7 MG/DL (0.50-1.00); TOTAL BILIRUBIN ADULT 0.5 MG/DL (0.2-1.0)
--- NOTE | 2018-02-11 10:45 | HHI.PR ---
Subjective Remarks Notable fractures of pelvis on imaging. Orthopedics consult was patient does not recommend surgery at this time. Patient's a poor surgical candidate. Work with PT is recommended. Patient will need long-term facility at discharge. Objective Vital Signs Date Time Temp Pulse Resp B/P (MAP) Pulse Ox O2 Delivery O2 Flow Rate FiO2 02/11/18 08:31 96 Nasal Cannula 2.00 02/11/18 08:00 97.7 84 18 174/77 (109) 94 02/11/18 04:20 98.0 87 20 180/75 (110) 92 02/11/18 00:00 97.5 65 17 180/82 (114) 93 02/10/18 20:05 95 Nasal Cannula 2.00 02/10/18 20:00 97.8 98 17 176/80 (112) 100 02/10/18 16:00 97.2 96 20 174/89 (117) 93 I/O 02/10/18 02/10/18 02/10/18 02/11/18 02/11/18 02/11/18 07:00 15:00 23:00 07:00 15:00 23:00 Intake Total 1000 ml 350 ml 1028 ml Output Total 850 ml 1050 ml 425 ml 800 ml Balance 150 ml -700 ml 603 ml -800 ml Intake Oral 0 ml 350 ml 240 ml IV Total 1000 ml 788 ml Output Urine Total 850 ml 1050 ml 425 ml 800 ml # Bowel Movements 0 1 Result Diagram: 02/11/18 0920 02/11/18 0920 Objective Remarks GENERAL: NAD, A&Ox2, tremor. HEAD: Normocephalic. NECK: Supple, trachea midline. No lymphadenopathy. EYES: No scleral icterus. No injection or drainage. CARDIOVASCULAR: Regular rate and rhythm without murmurs, gallops, or rubs. RESPIRATORY: Breath sounds equal bilaterally. No accessory muscle use. GASTROINTESTINAL: Abdomen soft, non-tender, nondistended. MUSCULOSKELETAL: No cyanosis, or edema. SKIN: Warm and dry. NEURO: No focal neurological deficitis. A/P Problem List: (1) Symptomatic anemia ICD Code: D64.9 - Anemia, unspecified Status: Acute (2) Acute renal failure ICD Code: N17.9 - Acute kidney failure, unspecified (3) Heart failure ICD Code: I50.9 - Heart failure, unspecified Status: Acute (4) Congestive heart failure ICD Code: I50.9 - Heart failure, unspecified (5) Leukocytosis ICD Code: D72.829 - Elevated white blood cell count, unspecified Assessment and Plan 72-year-old female admitted secondary to severe anemia with acute renal failure hyperkalemia, and leukocytosis. Labs reviewed. Hemoglobin has a downward trend from 9.1 to 8.5. Potassium level of this morning at 3.2. Downward trend and creatinine level. Continue to monitor labs. Labs ordered for further monitoring. Can working with physical therapy per orthopedic recommendations. Plan for discharge to long-term facility after medically stable. Severe anemia Acute blood loss anemia, suspected Stool studies pending Transfused 2 units packed red blood cells 02/08/18 Hemoglobin levels improved Follow CBC Hypoglycemia Resolved with D50. Follow blood sugars Continue diet. Acute renal failure Unimproved History of chronic kidney disease in the past IV hydration discontinued due to CHF symptoms Follow electrolytes Avoid nephrotoxins Nephrology following Leukocytosis UA pending Rocephin Follow CBC Hyperkalemia IV hydration Follow potassium level Rheumatoid Arthritis Lupus Hold baseline treatments for now Follow clinically Coronary artery disease [place] Angina Elevated BNP Congestive heart failure Continue baseline treatments Follow clinically No chest pain when seen IV fluids discontinued Hypertension Continue baseline treatment Follow blood pressures Adjust treatments as needed COPD No exacerbation when seen Continue As needed albuterol Nephrolithiasis history Asymptomatic Follow clinically Hyperlipidemia Continue present treatment Follow as an outpatient Depression Change to baseline management DVT prophylaxis Right leg DVT Patient may be actively bleeding right now Hold Eliquis Hold Plavix SCDs held due to blisters Carlitos Gamble MD Feb 11, 2018 10:45
[2018-02-11] MEDS ORDERED: POTASSIUM CHLORIDE 20 MEQ PWD PACKET PO ONE (11:00)
[2018-02-11] MEDS: cloNIDine HCL 0.1 MG TAB PO PRN ×2 (13:58→23:43)
[2018-02-11] MEDS: ACETAMINOPHEN/CODEINE 300 MG/30 MG TAB PO PRN ×2 (16:45→23:43)
--- NOTE | 2018-02-11 18:20 | HHI.NPPN ---
Subjective Additional Remarks tired, no acute complaints Objective Data Data 02/11/18 02/12/18 19:00 07:00 Intake Total 988 ml Balance 988 ml IV Total 988 ml Vital Signs Date Time Temp Pulse Resp B/P (MAP) Pulse Ox O2 Delivery O2 Flow Rate FiO2 02/11/18 13:55 168/78 (108) 02/11/18 12:00 96.7 83 20 182/87 (118) 93 02/11/18 08:31 96 Nasal Cannula 2.00 02/11/18 08:00 97.7 84 18 174/77 (109) 94 02/11/18 04:20 98.0 87 20 180/75 (110) 92 02/11/18 00:00 97.5 65 17 180/82 (114) 93 02/10/18 20:05 95 Nasal Cannula 2.00 02/10/18 20:00 97.8 98 17 176/80 (112) 100 -: 02/11/18 0920 02/11/18 0920 Physical Exam General Appearance: No Acute Distress, Malnourished Throat Throat Exam: Oral Mucosa [place] & Moist Neck Neck Exam: Neck Supple Pulmonary Resp Exam: Diminished Breath Sounds Cardiology CV Exam: Regular Gastrointestinal/Abdomen GI Exam: Soft, Non-Tender, Bowel Sounds Present Integumentary Skin Exam: Dry, Intact Extremeties Extremities Exam: No Edema Neurologic Neuro Exam: Awake Assessment/Plan Problem List: (1) Acute renal failure ICD Codes: N17.9 - Acute kidney failure, unspecified Plan: 11/2017 Creatinine 1.9 -3.1 Creatinine 2.69 12/23/2017 History of medullary sponge kidney with multiple kidney stones in the past, but nothing in recent years. She also has history of lupus Creatinine 4.1 on admission - improved to 2.7 today. Suspect RADHA on CKD with element of volume depletion. Spot protein/creatinine ratio with 9 grams proteinuria. Will repeat to confirm. Complements wnl, DS DNA pending, Pending SPEP as well Renal ultrasound suggestive of CKD Continues IVFs on 11/28 NS + 75meq NaHCO3 - will decrease rate to 75cc/hour Also on lasix 20mg PO every other day. (2) Hyperkalemia ICD Codes: E87.5 - Hyperkalemia Plan: improved, now lower potassium and given KCl this morning. Continue to monitor (3) Anemia ICD Codes: D64.9 - Anemia, unspecified Status: Acute Plan: transfused 02/08 - continue to monitor. (4) CAD (coronary artery disease) ICD Codes: I25.10 - Atherosclerotic heart disease of [place] coronary artery without angina pectoris Status: Chronic Plan: asymptomatic, continue to monitor. (5) HTN (hypertension) ICD Codes: I10 - Essential (primary) hypertension Status: Chronic Plan: SBP 160s metoprolol added 02/10 continue to monitor. Problem Qualifiers (1) Anemia: Qualified Codes: N18.9 - Chronic kidney disease, unspecified; D63.1 - Anemia in chronic kidney disease Carlitos Ramirez MD Feb 11, 2018 18:20
[2018-02-11] MEDS: MIRTAZAPINE 15 MG TAB PO SCH (21:54)
[2018-02-12 04:15] VITALS: BP 174/71; PULSE 72
[2018-02-12] MEDS: hydrALAZINE HCL 10 MG TAB PO SCH ×3 (05:26→20:50)
[2018-02-12] MEDS: ACETAMINOPHEN/CODEINE 300 MG/30 MG TAB PO PRN ×2 (06:12→13:11)
[2018-02-12 07:19] LABS: HEMATOCRIT 28.2 % (35.0-46.0); MEAN CELL VOLUME 87.2 FL (80.0-100.0); MEAN CORPUSCULAR HEMOGLOBIN 27.8 PG (27.0-34.0); MEAN CORPUSCULAR HGB CONC 31.9 % (32.0-36.0); PLATELET COUNT 243 TH/MM3 (150-450); RED BLOOD COUNT 3.23 MIL/MM3 (4.00-5.30); RED CELL DISTRIBUTION WIDTH 16.9 % (11.6-17.2); WHITE BLOOD COUNT 12.4 TH/MM3 (4.0-11.0)
[2018-02-12 07:30] LABS: BICARBONATE 24.8 MEQ/L (21.0-32.0); CALCIUM 7.4 MG/DL (8.5-10.1); CREATININE 2.5 MG/DL (0.50-1.00)
[2018-02-12 07:46] LABS: CALCIUM-PROTEIN CORRECTED 8.1 MG/DL (8.5-10.1); TOTAL PROTEIN 5.9 GM/DL (6.4-8.2)
[2018-02-12 08:00] VITALS: BP 141/68; PULSE 81; RESP 16; TEMP 97.3; O2SAT 94
[2018-02-12] MEDS: predniSONE 20 MG TAB PO SCH (08:34)
[2018-02-12] MEDS: HYDROXYCHLOROQUINE SULFATE 200 MG TAB PO SCH (08:34)
[2018-02-12] MEDS: CALCIUM CARBONATE 1.25 GM (CA 500 MG) TAB PO SCH (08:34)
[2018-02-12] MEDS: METOPROLOL TARTRATE 25 MG TAB PO SCH ×2 (08:35→20:50)
[2018-02-12] MEDS: FAMOTIDINE 20 MG TAB PO SCH ×2 (08:35→20:51)
[2018-02-12] MEDS: SERTRALINE HCL 50 MG TAB PO SCH (08:35)
[2018-02-12] MEDS: BUDESONIDE-FORMOTEROL 160/4.5 MCG INHALER INH SCH ×2 (08:39→20:50)
[2018-02-12] MEDS: SODIUM CHLORIDE 0.9% FLUSH 10 ML FLUSH IV FLUSH SCH ×2 (09:00→20:50)
[2018-02-12] MEDS ORDERED: POTASSIUM CHLORIDE 20 MEQ CONTROLLED RELEASE TAB PO ONE (09:00)
[2018-02-12 09:41] LABS: ALB/GLOB RATIO (SPE) 0.91 (1.39-2.23)
--- NOTE | 2018-02-12 11:09 | HHI.PR ---
Subjective Remarks Patient seen and evaluated today in follow-up for pelvic fractures which are not operable per orthopedics Patient has not walked in several months and is weak at baseline. Discharge to [facility] facility readdressed with patient who is agreeable. Patient currently being evaluated by nephrology due to the history of medullary sponge kidney and proteinuria. Objective Vitals Vital Signs Date Time Temp Pulse Resp B/P (MAP) Pulse Ox O2 Delivery O2 Flow Rate FiO2 02/12/18 08:00 97.3 81 16 141/68 (92) 94 02/12/18 07:12 20 02/12/18 04:15 72 174/71 (105) 02/11/18 23:31 97.4 70 20 193/77 (115) 100 02/11/18 22:01 97.0 73 16 189/88 (121) 95 02/11/18 18:22 78 18 158/94 (115) 96 02/11/18 13:55 168/78 (108) 02/11/18 12:00 96.7 83 20 182/87 (118) 93 I/O 02/11/18 02/11/18 02/11/18 02/12/18 02/12/18 02/12/18 07:00 15:00 23:00 07:00 15:00 23:00 Intake Total 425 ml 988 ml 1100 ml Output Total 800 ml 1200 ml 800 ml Balance -800 ml -775 ml 988 ml 300 ml Intake Oral 425 ml IV Total 988 ml 1100 ml Output Urine Total 800 ml 1200 ml 800 ml # Bowel Movements 0 1 1 Result Diagram: 02/12/18 0520 02/12/18 0520 Imaging Last Impressions Pelvis CT 02/09/18 0000 Signed Impressions: Service Date/Time: Friday, February 09, 2018 16:57 - CONCLUSION: #1. Fractures of the left sacral ala, right pubic bone, left and right pubic rami and anterior column left acetabulum with mild displacement. #2. Diffuse osteopenia. #3. Previous fixation both proximal femora. #4. 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 Manjit Layton MD Knee X-Ray 02/08/18 1317 Signed Impressions: Service Date/Time: January 14:52 - CONCLUSION: 1. Mild arthritic changes. No acute abnormality is identified. Carlitos Maya MD Head CT 02/08/187 Signed Impressions: Service Date/Time: January 15:17 - CONCLUSION: 1. Mild stable cerebral atrophy. 2. Scattered old tiny lacunar infarcts within the bilateral basal ganglia. 3. Mild periventricular white matter small vessel ischemic changes bilaterally. 4. No acute infarct, acute hemorrhage, midline shift or extra-axial fluid collections. Jack Dinh MD Chest X-Ray 02/08/181316 Signed Impressions: Service Date/Time: January 14:52 - CONCLUSION: 1. Bilateral old rib fractures. 2. No displaced acute rib fractures or pneumothorax. 3. No acute abnormality. Noah Douglass MD Sacrum and Coccyx X-Ray 02/08/18 0000 Signed Impressions: Service Date/Time: January 14:52 - CONCLUSION: 1. Diffuse osteopenia with findings concerning for nondisplaced left sacral fractures. Consider CT or MRI examination to confirm this finding as clinically appropriate. 2. Partially imaged right femoral fixation hardware with leatha-hardware lucency suggesting loosening. This is unchanged from prior abdominal radiograph. Noah Douglass MD Objective Remarks GENERAL: This is a frail female who appears older than stated age CARDIOVASCULAR: Regular rate and rhythm without murmurs, gallops, or rubs. RESPIRATORY: Clear to auscultation. Breath sounds equal bilaterally. No wheezes , rales, or rhonchi. GASTROINTESTINAL: Abdomen soft, non-tender, nondistended. Normal active bowel sounds MUSCULOSKELETAL: Extremities without clubbing, cyanosis, or edema. NEURO: Alert & Oriented x4 to person, place, time, situation. Moves all ext x4 A/P Problem List: (1) Hyperkalemia ICD Code: E87.5 - Hyperkalemia Plan: resolved (2) Acute renal failure ICD Code: N17.9 - Acute kidney failure, unspecified Plan: improved Patient with underlying medullary sponge kidney Follow-up electrolytes and hemoglobin Renal following Patient with significant proteinuria (3) Leukocytosis ICD Code: D72.829 - Elevated white blood cell count, unspecified Plan: Also improved trend Urinalysis shows no growth (4) Anemia ICD Code: D64.9 - Anemia, unspecified Status: Acute (5) Malnutrition ICD Code: E46 - Unspecified protein-calorie malnutrition Plan: Severe malnutrition and need for assistance with dietary team (6) Heart failure ICD Code: I50.9 - Heart failure, unspecified Status: Acute Plan: Patient with hypoxemia, elevated BNP and dyspnea Improved clinically Discharge Planning Continue plans for discharge on 1-2 days when cleared by nephrology Patient will do well with rehab facility however she and her family will need to be agreeable to this plan otherwise he will need to go home Problem Qualifiers (1) Anemia: Qualified Codes: N18.9 - Chronic kidney disease, unspecified; D63.1 - Anemia in chronic kidney disease Shaila Simms MD Feb 12, 2018 11:09
[2018-02-12 12:24] VITALS: BP_SYST 191; BP_SYST 195; BP_DIAS 81; BP_DIAS 87; PULSE 75; RESP 14; TEMP 98.4; O2SAT 94
[2018-02-12] MEDS: cloNIDine HCL 0.1 MG TAB PO PRN (13:11)
--- NOTE | 2018-02-12 15:26 | HHI.NPPN ---
Subjective History of Present Illness 72 year old female. She is brought in by her daughter secondary to changes in her baseline mental status. It is reported that she fell 4 days ago and struck her head. No loss of consciousness. I was called to see the patient for elevated BUN and Creatinine. Additional Remarks Patient is sleepy but arousable, not eating well, not in distress. Review of Systems General Constitutional: Fatigue Respiratory Lungs: SOB Cardiovascular Cardiac: Edema, BAXTER Objective Data Data Vital Signs Date Time Temp Pulse Resp B/P (MAP) Pulse Ox O2 Delivery O2 Flow Rate FiO2 02/12/18 14:11 20 02/12/18 12:24 98.4 75 14 195/81 (119) 94 191/87 (121) 02/12/18 08:00 97.3 81 16 141/68 (92) 94 02/12/18 04:15 72 174/71 (105) 02/11/18 23:31 97.4 70 20 193/77 (115) 100 02/11/18 22:01 97.0 73 16 189/88 (121) 95 02/11/18 18:22 78 18 158/94 (115) 96 -: 02/12/18 0520 02/12/18 0520 Microbiology 02/11/18 Stool Occult Blood (DAJA) - Final, Complete HEMOCCULT NEGATIVE Physical Exam General Appearance: No Acute Distress, Comfortable, Malnourished Throat Throat Exam: Oral Mucosa [place] & Moist Neck Neck Exam: Neck Supple Pulmonary Resp Exam: Diminished Breath Sounds Cardiology CV Exam: Regular Gastrointestinal/Abdomen GI Exam: Soft, Non-Tender, Bowel Sounds Present Integumentary Skin Exam: Dry, Intact Extremeties Extremities Exam: No Edema Neurologic Neuro Exam: Alert, Awake Assessment/Plan Assessment Summary: RADHA/Acute Renal Failure Problem List: (1) Acute renal failure ICD Codes: N17.9 - Acute kidney failure, unspecified Plan: 11/2017 Creatinine 1.9 -3.1 Creatinine 2.69 12/23/2017 History of medullary sponge kidney with multiple kidney stones in the past, but nothing in recent years. She also has history of lupus Creatinine 4.1 on admission - improved to 2.5 today. Suspect RADHA on CKD with element of volume depletion. Spot protein/creatinine ratio with 9 grams proteinuria. Will repeat to confirm. Complements wnl, DS DNA pending, Pending SPEP as well Renal ultrasound suggestive of CKD. IVF stopped and given Lasix, K is low and replaced. BP is elevated, start Amlodipine. (2) Hyperkalemia ICD Codes: E87.5 - Hyperkalemia Plan: improved, now lower potassium and given KCl this morning. Continue to monitor (3) Anemia ICD Codes: D64.9 - Anemia, unspecified Status: Acute Plan: transfused 02/08 - continue to monitor. (4) CAD (coronary artery disease) ICD Codes: I25.10 - Atherosclerotic heart disease of [place] coronary artery without angina pectoris Status: Chronic Plan: asymptomatic, continue to monitor. (5) HTN (hypertension) ICD Codes: I10 - Essential (primary) hypertension Status: Chronic Plan: SBP 160s metoprolol added 02/10 continue to monitor. Problem Qualifiers (1) Anemia: Qualified Codes: N18.9 - Chronic kidney disease, unspecified; D63.1 - Anemia in chronic kidney disease Yuliya Chavez MD Feb 12, 2018 15:26
[2018-02-12 15:30] VITALS: BP 150/75; PULSE 64; RESP 20; TEMP 98.6; O2SAT 94
[2018-02-12] MEDS: amLODIPine BESYLATE 5 MG TAB PO SCH (15:30)
[2018-02-12 20:00] VITALS: BP 159/71; PULSE 78; RESP 16; TEMP 97.3; O2SAT 94
[2018-02-12] MEDS: MIRTAZAPINE 15 MG TAB PO SCH (20:50)
[2018-02-13] VITALS: BP 103/57; PULSE 64; RESP 16; TEMP 96.8; O2SAT 95
[2018-02-13] MEDS: ACETAMINOPHEN/CODEINE 300 MG/30 MG TAB PO PRN ×3 (02:48→13:29)
[2018-02-13] MEDS: hydrALAZINE HCL 10 MG TAB PO SCH ×2 (06:11→13:29)
[2018-02-13 08:00] VITALS: BP 171/85; PULSE 63; RESP 16; TEMP 97.3; O2SAT 94
[2018-02-13] MEDS: METOPROLOL TARTRATE 25 MG TAB PO SCH (08:59)
[2018-02-13] MEDS: BUDESONIDE-FORMOTEROL 160/4.5 MCG INHALER INH SCH (08:59)
[2018-02-13] MEDS: FAMOTIDINE 20 MG TAB PO SCH (09:00)
[2018-02-13] MEDS: cloNIDine HCL 0.1 MG TAB PO PRN (09:00)
[2018-02-13] MEDS: SERTRALINE HCL 50 MG TAB PO SCH (09:00)
[2018-02-13] MEDS: SODIUM CHLORIDE 0.9% FLUSH 10 ML FLUSH IV FLUSH SCH (09:00)
[2018-02-13] MEDS: FUROSEMIDE 20 MG TAB PO SCH (09:00)
[2018-02-13] MEDS: CALCIUM CARBONATE 1.25 GM (CA 500 MG) TAB PO SCH (09:00)
[2018-02-13] MEDS: predniSONE 20 MG TAB PO SCH (09:00)
[2018-02-13] MEDS: amLODIPine BESYLATE 5 MG TAB PO SCH (09:00)
[2018-02-13] MEDS: HYDROXYCHLOROQUINE SULFATE 200 MG TAB PO SCH (09:01)
[2018-02-13] MEDS: LEVOFLOXACIN 500 MG PREMIX INJ 100 ML IV SCH (10:00)
[2018-02-13] MEDS ORDERED: METO25TA3 PO (10:24)
[2018-02-13] MEDS ORDERED: AMLO5 PO (10:24)
--- NOTE | 2018-02-13 10:27 | HHI.DCPOC ---
Discharge Care Plan Diagnosis: (1) Acute renal failure (2) Anemia (3) Toxic encephalopathy Goals to Promote Your Health * To prevent worsening of your condition and complications * To maintain your health at the optimal level Directions to Meet Your Goals Take your medications as prescribed Follow your dietary instruction Follow activity as directed Keep your appointments as scheduled Take your immunizations and boosters as scheduled If your symptoms worsen call your PCP, if no PCP go to Urgent Care Center or Emergency Room Smoking is Dangerous to Your Health. Avoid second hand smoke Call the 24-hour hour crisis hotline for domestic abuse at Shaila Simms MD Feb 13, 2018 10:27
--- NOTE | 2018-02-13 11:48 | HHI.DS ---
Discharge Summary Admission Date Feb 08, 2018 at 15:04 Discharge Date: Feb 13, 2018 Admitting Diagnosis anemia, hyperkalemia, acute on chronic kidney injury (1) Hyperkalemia ICD Code: E87.5 - Hyperkalemia (2) Acute renal failure ICD Code: N17.9 - Acute kidney failure, unspecified (3) Leukocytosis ICD Code: D72.829 - Elevated white blood cell count, unspecified (4) Anemia ICD Code: D64.9 - Anemia, unspecified Status: Acute (5) Malnutrition ICD Code: E46 - Unspecified protein-calorie malnutrition (6) Heart failure ICD Code: I50.9 - Heart failure, unspecified Status: Acute Procedures none Brief History - From Admission Mrs. Plaza is a 72 year old female. She is brought in by her daughter secondary to changes in her baseline mental status. It is reported that she fell 4 days ago and struck her head. No loss of consciousness. CT of the brain shows no evidence of bleed. No evidence of stroke. Patient is found to be severely anemic with a hemoglobin level of 5.4. She is on Eliquis for treatment of a DVT. She is also on Plavix as a treatment for coronary stent. These 2 treatments coupled with acute renal failure are likely causing her bleeding. She has a past history of bleeding from an unknown source. GI workups have been negative to improve any source. She has had 2 units transfused last August, July, and September. Imaging reveals possible sacral fracture of the left, MRI recommended for further clarification. Patient complains of no chest pain. At baseline she has coronary artery disease , CHF, COPD, lupus, hypertension, rheumatoid arthritis, and a right leg DVT. Leukocytosis is present. UA is pending. BNP is significantly elevated, no respiratory symptoms. Hyperkalemia is present and likely related to dehydration combined with acute renal failure. Patient is on potassium supplements at baseline. CBC/BMP: 02/12/18 0520 02/12/18 1615 Significant Findings Laboratory Tests Test 02/10/18 13:50 02/11/18 09:20 02/11/18 21:30 02/12/18 05:20 Blood Urea Nitrogen 92 MG/DL (7-18) 82 MG/DL (7-18) 74 MG/DL (7-18) Creatinine 3.30 MG/DL (0.50-1.00) 2.70 MG/DL (0.50-1.00) 2.50 MG/DL (0.50-1.00) Total Protein 6.1 GM/DL (6.4-8.2) 6.0 GM/DL (6.4-8.2) 5.9 GM/DL (6.4-8.2) Albumin 2.2 GM/DL (3.4-5.0) 2.2 GM/DL (3.4-5.0) Calcium Level 6.9 MG/DL (8.5-10.1) 7.4 MG/DL (8.5-10.1) 7.4 MG/DL (8.5-10.1) Phosphorus Level 7.5 MG/DL (2.5-4.9) Chloride Level 111 MEQ/L (98-107) 110 MEQ/L (98-107) 108 MEQ/L (98-107) Carbon Dioxide Level 18.0 MEQ/L (21.0-32.0) 18.3 MEQ/L (21.0-32.0) Estimat Glomerular Filtration Rate 14 ML/MIN (>89) 17 ML/MIN (>89) 19 ML/MIN (>89) Protein Corrected Calcium 7.4 MG/DL (8.5-10.1) 8.0 MG/DL (8.5-10.1) 8.1 MG/DL (8.5-10.1) White Blood Count 15.3 TH/MM3 (4.0-11.0) 12.4 TH/MM3 (4.0-11.0) Red Blood Count 3.08 MIL/MM3 (4.00-5.30) 3.23 MIL/MM3 (4.00-5.30) Hemoglobin 8.5 GM/DL (11.6-15.3) 9.0 GM/DL (11.6-15.3) Hematocrit 26.6 % (35.0-46.0) 28.2 % (35.0-46.0) Mean Platelet Volume 6.1 FL (7.0-11.0) Neutrophils (%) (Auto) 85.3 % (16.0-70.0) Lymphocytes (%) (Auto) 4.9 % (9.0-44.0) Basophils (%) (Auto) 3.1 % (0.0-2.0) Neutrophils # (Auto) 13.1 TH/MM3 (1.8-7.7) Lymphocytes # (Auto) 0.7 TH/MM3 (1.0-4.8) Monocytes # (Auto) 1.0 TH/MM3 (0-0.9) Basophils # (Auto) 0.5 TH/MM3 (0-0.2) Potassium Level 3.2 MEQ/L (3.5-5.1) 2.9 MEQ/L (3.5-5.1) Anion Gap 16 MEQ/L (5-15) Albumin/Globulin Ratio 0.91 (1.39-2.23) Aleea-7-Zqifzerdt 0.42 GM/DL (0.11-0.29) Ayiol-0-Fxsdeibyo 1.11 GM/DL (0.22-1.00) Urine Random Creatinine 20 MG/DL (27-300) Urine Random Total Protein 321 MG/DL (0-11.8) Urine Protein/Creatinine Ratio 16.05 (0.00-0.14) Mean Corpuscular Hemoglobin Concent 31.9 % (32.0-36.0) Test 02/12/18 16:15 Imaging Last Impressions Pelvis CT 02/09/18 0000 Signed Impressions: Service Date/Time: Friday, February 09, 2018 16:57 - CONCLUSION: #1. Fractures of the left sacral ala, right pubic bone, left and right pubic rami and anterior column left acetabulum with mild displacement. #2. Diffuse osteopenia. #3. Previous fixation both proximal femora. #4. 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 Manjit Layton MD Knee X-Ray 02/08/181316 Signed Impressions: Service Date/Time: January 14:52 - CONCLUSION: 1. Mild arthritic changes. No acute abnormality is identified. Carlitos Maya MD Head CT 02/08/181316 Signed Impressions: Service Date/Time: January 15:17 - CONCLUSION: 1. Mild stable cerebral atrophy. 2. Scattered old tiny lacunar infarcts within the bilateral basal ganglia. 3. Mild periventricular white matter small vessel ischemic changes bilaterally. 4. No acute infarct, acute hemorrhage, midline shift or extra-axial fluid collections. Jack Dinh MD Chest X-Ray 02/08/18 1317 Signed Impressions: Service Date/Time: January 14:52 - CONCLUSION: 1. Bilateral old rib fractures. 2. No displaced acute rib fractures or pneumothorax. 3. No acute abnormality. Noah Douglass MD Sacrum and Coccyx X-Ray 02/08/18 0000 Signed Impressions: Service Date/Time: January 14:52 - CONCLUSION: 1. Diffuse osteopenia with findings concerning for nondisplaced left sacral fractures. Consider CT or MRI examination to confirm this finding as clinically appropriate. 2. Partially imaged right femoral fixation hardware with leatha-hardware lucency suggesting loosening. This is unchanged from prior abdominal radiograph. Noah Douglass MD PE at Discharge GENERAL: This is a frail female who appears older than stated age CARDIOVASCULAR: Regular rate and rhythm without murmurs, gallops, or rubs. RESPIRATORY: Clear to auscultation. Breath sounds equal bilaterally. No wheezes , rales, or rhonchi. GASTROINTESTINAL: Abdomen soft, non-tender, nondistended. Normal active bowel sounds MUSCULOSKELETAL: Extremities without clubbing, cyanosis, or edema. NEURO: Alert & Oriented x4 to person, place, time, situation. Moves all ext x4 Pt update on day of discharge Patient is much better today. Renal function remained stable. Discharge plans discussed with patient and family Hospital Course This patient is a 72-year-old female who was admitted with altered mental status after a fall. Patient had some hip pain and is found to have pubic rami fractures and sacral fractures as well as acute kidney injury. Patient's renal function improved. She was seen by nephrology services and found to have proteinuria. She has a history of lupus and medullary sponge kidney and kidney stones. This has previously been stable. Patient appeared quite dehydrated as well. Her blood pressure was elevated and she was treated for this. Her electrolytes and vital signs and cell counts improved with improved hydration. She had some wounds and is chronically debilitated and these were addressed with the medical team. Pt Condition on Discharge: Good Discharge Disposition: Discharge to SNF Discharge Time: <= 30 minutes Discharge Instructions DIET: Follow Instructions for: As Tolerated, No Restrictions Activities you can perform: Regular-No Restrictions Follow up Referrals: Nephrology - 1 Week New Medications: Amlodipine (Norvasc) 5 Mg Tab 5 MG PO DAILY for Blood Pressure Management, #31 TAB Metoprolol Tartrate (Metoprolol Tartrate) 25 Mg Tab 25 MG PO Q12HR for Blood Pressure Management, #62 TAB Continued Medications: Apixaban (Eliquis) 5 Mg Tab 5 MG PO BID for Blood Clot Prevention, #60 TAB 0 Refills Clopidogrel (Plavix) 75 Mg Tab 75 MG PO DAILY for stent, #30 TAB Ergocalciferol (Ergocalciferol) 50,000 Unit Cap 67802 UNITS PO Q7D for Nutritional Supplement, #5 CAP Famotidine (Pepcid) 20 Mg Tab 20 MG PO BID for Manage Heartburn, #60 TAB 0 Refills Furosemide (Lasix) 20 Mg Tab 20 MG PO Q2D for Blood Pressure Management, #30 TAB 0 Refills Hydralazine HCl (Hydralazine HCl) 10 Mg Tablet 10 MG PO Q8HR for Blood Pressure Management, #90 TAB Hydroxychloroquine (Plaquenil) 200 Mg Tab 200 MG PO DAILY, #30 TAB 0 Refills Take with food Mirtazapine (Mirtazapine) 30 Mg Tab 30 MG PO HS for Depression Control, #30 TAB 0 Refills Nebulizer (Nebulizer) 1 Mis Mis EA .ROUTE DIRECTED for Breathing Treatment, #1 0 Refills Oxygen (O2) (Oxygen (O2)) Inha LITER MYKEL.CANULA CONTINUOUS for Prevent Hypoxemia, #2 Oxygen Concentrator Portable Gaseous 2 L/min via Nasal Canula Continuous For 99 months Oyster Shell (Oyster Calcium) 500 Mg Calcium (1250 Mg) Tab 500 MG PO DAILY for Nutritional Supplement, #30 TAB Prednisone (Prednisone) 20 Mg Tab 40 MG PO DAILY for Breathing Treatment, #60 TAB Sertraline (Sertraline) 50 Mg Tab 50 MG PO DAILY, #30 TAB 0 Refills [Albuterol Neb] () 2.5 MG/3 ML NEBU 2.5 MG INH Q4HR NEB PRN for SHORTNESS OF BREATH, #180 AMPULE [Budeson-Formot 160-4.5 Mcg Inh] () 60 PUFF AERO 2 PUFF INH Q12HR for Cough, #1 INH Shaila Simms MD Feb 13, 2018 11:48
[2018-02-13] MEDS ORDERED: ACET1TAB94 PO (11:49)
[2018-02-13 12:00] VITALS: BP 159/72; PULSE 68; RESP 16; TEMP 98.4; O2SAT 96
--- NOTE | 2018-02-13 14:13 | HHI.NPPN ---
Subjective History of Present Illness 72 year old female. She is brought in by her daughter secondary to changes in her baseline mental status. It is reported that she fell 4 days ago and struck her head. No loss of consciousness. I was called to see the patient for elevated BUN and Creatinine. Additional Remarks Patient is more alert, and started eating better, no SOB. Review of Systems General Constitutional: Fatigue Respiratory Lungs: SOB Cardiovascular Cardiac: Edema, BAXTER Objective Data Data 02/13/18 02/14/18 18:59 06:59 Intake Total 600 ml Balance 600 ml Intake Oral 600 ml # Bowel Movements 1 Vital Signs Date Time Temp Pulse Resp B/P (MAP) Pulse Ox O2 Delivery O2 Flow Rate FiO2 02/13/18 12:00 98.4 68 16 159/72 (101) 96 02/13/18 10:00 20 02/13/18 08:00 97.3 63 16 171/85 (113) 94 02/13/18 00:00 96.8 64 16 103/57 (72) 95 02/12/18 20:00 97.3 78 16 159/71 (100) 94 02/12/18 15:30 98.6 64 20 150/75 (100) 94 -: 02/12/18 0520 02/12/18 1615 Physical Exam General Appearance: No Acute Distress, Comfortable, Malnourished Throat Throat Exam: Oral Mucosa [place] & Moist Neck Neck Exam: Neck Supple Pulmonary Resp Exam: Diminished Breath Sounds Cardiology CV Exam: Regular Gastrointestinal/Abdomen GI Exam: Soft, Non-Tender, Bowel Sounds Present Integumentary Skin Exam: Dry, Intact Extremeties Extremities Exam: No Edema Neurologic Neuro Exam: Alert, Awake Assessment/Plan Assessment Summary: RADHA/Acute Renal Failure Problem List: (1) Acute renal failure ICD Codes: N17.9 - Acute kidney failure, unspecified Plan: 11/2017 Creatinine 1.9 -3.1 Creatinine 2.69 12/23/2017 History of medullary sponge kidney with multiple kidney stones in the past, but nothing in recent years. She also has history of lupus Creatinine 4.1 on admission - improving. Suspect RADHA on CKD with element of volume depletion. Spot protein/creatinine ratio with 9 grams proteinuria. Will repeat to confirm. Complements wnl, DS DNA pending, SPEP was negative. Renal ultrasound suggestive of CKD. For possible D/C, will need out patient follow up in 2-3 weeks. (2) Hyperkalemia ICD Codes: E87.5 - Hyperkalemia Plan: improved, now lower potassium and given KCl this morning. Continue to monitor (3) Anemia ICD Codes: D64.9 - Anemia, unspecified Status: Acute Plan: transfused 02/08 - continue to monitor. (4) CAD (coronary artery disease) ICD Codes: I25.10 - Atherosclerotic heart disease of [place] coronary artery without angina pectoris Status: Chronic Plan: asymptomatic, continue to monitor. (5) HTN (hypertension) ICD Codes: I10 - Essential (primary) hypertension Status: Chronic Plan: SBP 160s metoprolol added 02/10 continue to monitor. Problem Qualifiers (1) Anemia: Qualified Codes: N18.9 - Chronic kidney disease, unspecified; D63.1 - Anemia in chronic kidney disease Yuliya Chavez MD Feb 13, 2018 14:13
[2018-02-13 14:29] VITALS: RESP 20
[2018-02-13 15:49] VITALS: BP 126/72; PULSE 64; RESP 16; TEMP 98.7; O2SAT 97
[2018-02-13 16:00] VITALS: BP 121/77; PULSE 76; RESP 16; TEMP 96.7; O2SAT 98
== END 2018-02-13 18:49 | disposition home health service (06) | DRG 682 ==
LOC: PHEFT 12:27 → PHEDA 15:04 → PH3A 16:57
PROVIDERS: ADMIT Hospitalist; ATTEND Hospitalist
PROC: 30233N1 Transfusion of Nonautologous Red Blood Cells into Peripheral Vein, Percutaneous Approach (ICD-10-PCS; principal; 2018-02-08)
DX: N17.9 Acute kidney failure, unspecified (principal); G92 Toxic encephalopathy; E43 Unspecified severe protein-calorie malnutrition; I82.401 Acute embolism and thrombosis of unspecified deep veins of right lower extremity; S32.10XA Unspecified fracture of sacrum, initial encounter for closed fracture; S22.43XA Multiple fractures of ribs, bilateral, initial encounter for closed fracture; I50.9 Heart failure, unspecified; I13.0 Hypertensive heart and chronic kidney disease with heart failure and stage 1 through stage 4 chronic kidney disease, or unspecified chronic kidney disease; D62 Acute posthemorrhagic anemia; E86.0 Dehydration; S32.501A Unspecified fracture of right pubis, initial encounter for closed fracture; S32.502A Unspecified fracture of left pubis, initial encounter for closed fracture; Q61.5 Medullary cystic kidney; S09.90XA Unspecified injury of head, initial encounter; E87.5 Hyperkalemia; J44.9 Chronic obstructive pulmonary disease, unspecified; M06.9 Rheumatoid arthritis, unspecified; F32.9 Major depressive disorder, single episode, unspecified; M19.90 Unspecified osteoarthritis, unspecified site; E07.9 Disorder of thyroid, unspecified; D63.1 Anemia in chronic kidney disease; D72.829 Elevated white blood cell count, unspecified; E16.2 Hypoglycemia, unspecified; I25.119 Atherosclerotic heart disease of native coronary artery with unspecified angina pectoris; E78.5 Hyperlipidemia, unspecified; N18.9 Chronic kidney disease, unspecified; M25.562 Pain in left knee; R39.15 Urgency of urination; R80.9 Proteinuria, unspecified; R09.02 Hypoxemia; M81.0 Age-related osteoporosis without current pathological fracture; W01.0XXA Fall on same level from slipping, tripping and stumbling without subsequent striking against object, initial encounter; Z72.0 Tobacco use; Z95.5 Presence of coronary angioplasty implant and graft; I25.2 Old myocardial infarction; Z79.01 Long term (current) use of anticoagulants; Z87.442 Personal history of urinary calculi
CPT/HCPCS: 36430; 70450; 71045; 72192; 72220; 73564; 76775; 76937; 80048; 80053; 81001; 82272; 82550; 82570; 82947; 82948; 83880; 83935; 84100; 84132; 84155; 84156; 84165; 84300; 84484; 85025; 85027; 85610; 85730; 86160; 86225; 86850; 86900; 86901; 86920; 87086; 93005; 96360; J1956; J2270; J7030; J7040; J7050; J7512; P9016

== ENCOUNTER 2018-04-20 15:27 | Inpatient (IN) | payer MEDICARE ==
[~2018-04-20] VITALS: Ht 157.5 cm; Wt 37.7 kg
[2018-04-20] VITALS (7 sets, daily range): BP systolic 151–186; BP diastolic 65–80; PULSE 68–86; RESP 15–20; TEMP 98.8–99.9; O2SAT 89–97
[~2018-04-20 15:27] MED LIST changes: +ACET1TAB94 PO; -AMLO10 PO; +AMLO5 PO; -FERR325T20 PO; -LEVA250T14 PO; -METO-309 PO; +METO25TA3 PO
--- NOTE | 2018-04-20 16:25 | PD ---
HPI Chief Complaint: Abnormal Results Time Seen by Provider: 16:05 Travel History International Travel<30 days: No Contact w/Intl Traveler<30days: No Traveled to known affect area: No History of Present Illness HPI Patient presents to the emergency department for low hemoglobin. She was seen by this afternoon and hemoglobin was 5.9. States that she had a nosebleed last night, but denies hemoptysis, hematuria, bloody stool. Ports that she has had a low hemoglobin before requiring blood transfusion and it was thought to be secondary to low kidney function. She denies chest pain, shortness of breath , dizziness, lightheadedness, abdominal pain. Does report nausea and vomiting approximately 1 hour ago her p.o. intake from this morning. She is not on aspirin or NSAIDs, but does take Eliquis for blood clots her last dose was this morning at 2.5 mg p.o. PFSH Past Medical History Hx Anticoagulant Therapy: Yes Arthritis: Yes Autoimmune Disease: Yes (lupus, rheumatoid arthritis) Depression: Yes Cancer: No Cardiac Catheterization: Yes (stent x1) Cardiovascular Problems: Yes (htn on meds, [place] x 1 with stents, chf) Chest Pain: Yes COPD: Yes Diabetes: No Deep Vein Thrombosis: Yes (rt leg) Endocrine: Yes Genitourinary: Yes Hypertension: Yes Immune Disorder: Yes (Lupus) Kidney Stones: Yes Musculoskeletal: Yes Neurologic: No Psychiatric: No Reproductive: No Respiratory: Yes (copd) Myocardial Infarction: Yes Thyroid Disease: Yes (Parathyroid surgery) Triglycerides - High: Yes Tetanus Vaccination: Unknown Influenza Vaccination: Yes ?: Not Past Surgical History Abdominal Surgery: No Cardiac Surgery: Yes (cardiac stent) Ear Surgery: No Endocrine Surgery: Yes (parathyroid surgery) Eye Surgery: Yes (bilat cataract) Genitourinary Surgery: No Gynecologic Surgery: No Oral Surgery: No Thoracic Surgery: No Other Surgery: Yes (parathyroid surgery) Social History Alcohol Use: Yes (OCCASIONAL BEER) Tobacco Use: Yes (QUIT) Substance Use: No Allergies-Medications (Allergen,Severity, Reaction): Coded Allergies: cephalexin (Verified Allergy, Unknown, rash, 04/20/18) diatrizoate meglumine (Verified Allergy, Unknown, rash, 04/20/18) fluconazole (Verified Allergy, Unknown, rash, 04/20/18) gadobenic acid (Verified Allergy, Unknown, rash, 04/20/18) gadodiamide (Verified Allergy, Unknown, rash, 04/20/18) gadoteridol (Verified Allergy, Unknown, rash, 04/20/18) iodixanol (Verified Allergy, Unknown, rash, 04/20/18) iohexol (Verified Allergy, Unknown, rash, 04/20/18) pravastatin (Verified Allergy, Unknown, rash, 04/20/18) Reported Meds & Prescriptions Reported Meds & Active Scripts Active Acetaminophen-Codeine 300-30 mg Tab 1 Tab PO Q4H PRN Norvasc (Amlodipine Besylate) 5 Mg Tab 5 Mg PO DAILY Metoprolol Tartrate 25 Mg Tab 25 Mg PO Q12HR Nebulizer 1 Mis Mis Ea .ROUTE DIRECTED Pepcid (Famotidine) 20 Mg Tab 20 Mg PO BID Lasix (Furosemide) 20 Mg Tab 20 Mg PO Q2D Ergocalciferol 50,000 Unit Cap 50,000 Units PO Q7D Prednisone 20 Mg Tab 40 Mg PO DAILY [Budeson-Formot 160-4.5 Mcg Inh] 60 PUFF Aero 2 Puff INH Q12HR Oyster Calcium (Oyster Shell) 500 Mg Calcium (1250 Mg) Tab 500 Mg PO DAILY Hydralazine HCl 10 Mg Tablet 10 Mg PO Q8HR [Albuterol Neb] 2.5 MG/3 ML Nebu 2.5 Mg INH Q4HR NEB PRN Eliquis (Apixaban) 5 Mg Tab 5 Mg PO BID Plavix (Clopidogrel Bisulfate) 75 Mg Tab 75 Mg PO DAILY Oxygen (O2) (Miscellaneous Medication) Inha Liter MYKEL.CANULA CONTINUOUS Oxygen Concentrator Portable Gaseous 2 L/min via Nasal Canula Continuous For 99 months Reported Mirtazapine 30 Mg Tab 30 Mg PO HS Sertraline (Sertraline HCl) 50 Mg Tab 50 Mg PO DAILY Plaquenil (Hydroxychloroquine Sulfate) 200 Mg Tab 200 Mg PO DAILY Take with food Review of Systems Except as stated in HPI: all other systems reviewed are Neg Physical Exam Narrative GENERAL: Pale appearing, thin. SKIN: Focused skin assessment warm/dry. HEAD: Atraumatic. Normocephalic. EYES: Extraocular muscles intact bilaterally. No scleral icterus. No injection or drainage. ENT: No nasal bleeding or discharge. Mucous membranes pink and moist. No active epistaxis, but dried blood visible. NECK: Trachea midline. No JVD. CARDIOVASCULAR: Regular rate and rhythm. + murmur appreciated at left lower sternal border. RESPIRATORY: No accessory muscle use. Clear to auscultation. Breath sounds equal bilaterally. GASTROINTESTINAL: Abdomen soft, non-tender, nondistended. Rectal: Brown stool, Hemoccult negative. MUSCULOSKELETAL: Positive heel ulcer left foot, and along dorsum of left foot and lateral aspect of right foot/ankle. No clubbing. No cyanosis. No edema. NEUROLOGICAL: Awake and alert. No obvious cranial nerve deficits. Motor grossly within normal limits. Normal speech. PSYCHIATRIC: Appropriate mood and affect; insight and judgment normal. Data Data Last Documented VS Vital Signs Date Time Temp Pulse Resp B/P (MAP) Pulse Ox O2 Delivery O2 Flow Rate FiO2 04/20/18 17:14 78 16 180/80 (113) 97 Room Air 04/20/18 15:51 99.9 Orders Orders Electrocardiogram (04/20/18 16:18) Complete Blood Count With Diff (04/20/18 16:18) Comprehensive Metabolic Panel (04/20/18 16:18) Prothrombin Time / Inr (Pt) (04/20/18 16:18) Act Partial Throm Time (Ptt) (04/20/18 16:18) Chest, Single Ap (04/20/18 16:18) Type And Screen (04/20/18 16:18) Red Blood Cells (Rbc) (04/20/18 16:18) Blood Product Administration (04/20/18 16:18) Sodium Chlor 0.9% 250 Ml Inj (Ns 250 Ml (04/20/18 16:30) Hydralazine (Apresoline) (04/20/18 16:30) Iv Access Insert/Monitor (04/20/18 16:20) Ecg Monitoring (04/20/18 16:20) Oximetry (04/20/18 16:20) Urinalysis - C+S If Indicated (04/20/18 16:25) Urine Culture (04/20/18 16:42) Admit Order (Ed Use Only) (04/20/18 17:31) Labs Laboratory Tests Test 04/20/18 16:42 04/20/18 16:50 Urine Collection Type CLEAN CATCH Urine Color S Urine Turbidity SLIGHT Urine pH 6.0 Urine Specific [place] 1.015 Urine Protein 300 OR GREATER mg/dL Urine Glucose (UA) NEG mg/dL Urine Ketones NEG mg/dL Urine Occult Blood TRACE Urine Nitrite POS Urine Bilirubin NEG Urine Urobilinogen 0.2 MG/DL Urine Leukocyte Esterase MOD Urine RBC 0-3 /hpf Urine WBC 25-49 /hpf Urine WBC Clumps OCC Microscopic Urinalysis Comment CULTURE INDICATED White Blood Count 16.6 TH/MM3 Red Blood Count 2.27 MIL/MM3 Hemoglobin 6.8 GM/DL Hematocrit 20.4 % Mean Corpuscular Volume 90.0 FL Mean Corpuscular Hemoglobin 29.8 PG Mean Corpuscular Hemoglobin Concent 33.2 % Red Cell Distribution Width 17.1 % Platelet Count 350 TH/MM3 Mean Platelet Volume 6.5 FL Neutrophils (%) (Auto) 89.6 % Lymphocytes (%) (Auto) 3.8 % Monocytes (%) (Auto) 5.2 % Eosinophils (%) (Auto) 1.2 % Basophils (%) (Auto) 0.2 % Neutrophils # (Auto) 14.9 TH/MM3 Lymphocytes # (Auto) 0.6 TH/MM3 Monocytes # (Auto) 0.9 TH/MM3 Eosinophils # (Auto) 0.2 TH/MM3 Basophils # (Auto) 0.0 TH/MM3 CBC Comment AUTO DIFF Differential Comment AUTO DIFF CONFIRMED Prothrombin Time 11.4 SEC Prothromb Time International Ratio 1.1 RATIO Activated Partial Thromboplast Time 44.1 SEC Blood Urea Nitrogen 73 MG/DL Creatinine 3.00 MG/DL Random Glucose 103 MG/DL Total Protein 7.2 GM/DL Albumin 2.7 GM/DL Calcium Level 9.0 MG/DL Alkaline Phosphatase 89 U/L Aspartate Amino Transf (AST/SGOT) 18 U/L Alanine Aminotransferase (ALT/SGPT) 13 U/L Total Bilirubin 0.2 MG/DL Sodium Level 135 MEQ/L Potassium Level 4.4 MEQ/L Chloride Level 105 MEQ/L Carbon Dioxide Level 20.1 MEQ/L Anion Gap 10 MEQ/L Estimat Glomerular Filtration Rate 15 ML/MIN [facility] Medical Decision Making Medical Screen Exam Complete: Yes Emergency Medical Condition: Yes Interpretation(s) ECG: Sinus rhythm with first-degree AV block, rate 75, QTC 424 right axis deviation, T-wave inversion in lead III Labs: Increased WBC, decreased hemoglobin and hematocrit, PTT increased, UA suggestive of UTI with culture pending, creatinine increased Last Impressions Chest X-Ray 04/20/18 1618 Signed Impressions: CONCLUSION: Blunting of the left costophrenic angle may reflect new left effusion Differential Diagnosis Anemia secodnary to GI bleed, nosebleed, kidney failure. Narrative Course Patient presents to the emergency department for low hemoglobin. She was hypertensive, temperature 99.9, remaining vital signs stable. He is on a cardiac specialist IV access was obtained, and labs drawn, EKG obtained, chest x- ray ordered. She is due for her afternoon dose of hydralazine 10 mg p.o., which was ordered in the emergency department. She has been consented for blood transfusion. 1816: Admitting physician wrote for Rocephin for UTI. Patient has a documented allergy to cephalexin. When asked what her allergy is she advises that she gets a bad yeast infection. This was conveyed to the admitting MD. She has been written for transfusion of 2 units of PRBCs with 20 mg IV Lasix in between. Additionally, he was pretreated with Benadryl 25 mg p.o. and Tylenol 650 mg p.o. Diagnosis Primary Impression: Anemia Qualified Codes: N18.9 - Chronic kidney disease, unspecified; D63.1 - Anemia in chronic kidney disease Additional Impressions: UTI (urinary tract infection) Qualified Codes: N39.0 - Urinary tract infection, site not specified Chronic renal failure Qualified Codes: N18.9 - Chronic kidney disease, unspecified Admitting Information Admitting Physician Requests: Admit Condition: Stable Jessica Aqunio MD April 20, 2018 16:25
[2018-04-20] MEDS ORDERED: hydrALAZINE HCL 10 MG TAB PO ONE (16:30)
[2018-04-20] MEDS ORDERED: SODIUM CHLOR 0.9% 250 ML INJ 250 ML IV ONE (16:30)
[2018-04-20 16:48] LABS: BILIRUBIN, URINE NEG (NEG); BLOOD, URINE TRACE (NEG); GLUCOSE,URINE NEG (NEG); KETONE, URINE NEG (NEG); NITRITE,URINE POS (NEG); URINE LEUKOCYTE ESTERASE MOD (NEG)
[2018-04-20 16:50] LABS: URINE COLOR S (YELLW/STRAW)
[2018-04-20 16:53] LABS: RBC, URINE 0-3 /hpf (0-3); WHITE BLOOD CELL CLUMPS OCC
[2018-04-20 17:00] LABS: AUTOMATED NEUTROPHIL # 14.9 TH/MM3 (1.8-7.7); BASOPHIL % 0.2 % (0.0-2.0); EOSINOPHIL # 0.2 TH/MM3 (0-0.4); EOSINOPHIL % 1.2 % (0.0-4.0); LYMPH % 3.8 % (9.0-44.0); LYMPHOCYTE # 0.6 TH/MM3 (1.0-4.8); MEAN CORPUSCULAR HEMOGLOBIN 29.8 PG (27.0-34.0); MEAN CORPUSCULAR HGB CONC 33.2 % (32.0-36.0); MEAN PLATELET VOLUME 6.5 FL (7.0-11.0); MONO % 5.2 % (0.0-8.0); MONOCYTE # 0.9 TH/MM3 (0-0.9); NEUT % 89.6 % (16.0-70.0); PLATELET COUNT 350 TH/MM3 (150-450); RED BLOOD COUNT 2.27 MIL/MM3 (4.00-5.30); RED CELL DISTRIBUTION WIDTH 17.1 % (11.6-17.2); WHITE BLOOD COUNT 16.6 TH/MM3 (4.0-11.0)
[2018-04-20 17:02] LABS: HEMOGLOBIN 6.8 GM/DL (11.6-15.3)
[2018-04-20 17:03] LABS: HEMATOCRIT 20.4 % (35.0-46.0)
[2018-04-20 17:06] LABS: CHLORIDE 105 MEQ/L (98-107); SODIUM (NA) 135 MEQ/L (136-145)
[2018-04-20 17:10] LABS: ALBUMIN 2.7 GM/DL (3.4-5.0); BICARBONATE 20.1 MEQ/L (21.0-32.0); BLOOD UREA NITROGEN 73 MG/DL (7-18); GLUCOSE,RANDOM 103 MG/DL (74-106)
[2018-04-20 17:13] LABS: ALT (GPT) 13 U/L (10-53); AST (GOT) 18 U/L (15-37); GLOMERULAR FILTRATION RATE 15 ML/MIN (>89); INTERNATIONAL NORMALIZED RATIO 1.1 RATIO; PROTHROMBIN TIME - PATIENT 11.4 SEC (9.8-11.6)
[2018-04-20 17:15] LABS: TOTAL BILIRUBIN ADULT 0.2 MG/DL (0.2-1.0); TOTAL PROTEIN 7.2 GM/DL (6.4-8.2)
[2018-04-20 17:16] LABS: ALKALINE PHOSPHATASE 89 U/L (45-117)
--- NOTE | 2018-04-20 17:25 | RADRPT ---
EXAM DATE: 04/20/2018 5:18 PM EDT AGE/SEX: 72 years / Female INDICATIONS: Shortness of breath CLINICAL DATA: This is the patient's initial encounter. Patient reports that signs and symptoms have been present for 1 day and indicates a pain score of 0/10. MEDICAL/SURGICAL HISTORY: . Hypertension. Myocardial infarction. Chronic obstructive pulmonary disease. CHF. Lupus. RA. Parathyroid disease. . Caridac stent COMPARISON: [facility], CHEST SINGLE AP, 02/08/2018. . FINDINGS: Stable mild reticular interstitial prominence is present. Patchy irregular densities on the left may represent pleural calcifications and these are grossly unchanged. There is slight blunting of the lef t costophrenic angle which may reflect mild effusion. There are lateral rib deformities on the right which are stable. Cardiac contours are grossly unchanged. CONCLUSION: Blunting of the left costophrenic angle may reflect new left effusion Electronically signed by: Chaim Bonilla MD 04/20/2018 5:24 PM EDT
[2018-04-20] MEDS ORDERED: NALOXONE HCL 0.4 MG/ML AMP IV PUSH PRN (18:00)
[2018-04-20] MEDS ORDERED: diphenhydrAMINE HCL 25 MG CAP PO ONE (18:00)
[2018-04-20] MEDS ORDERED: RESP: ALBUTEROL 2.5 MG/IPRATROPIUM 0.5 MG NEB (PRN) NEB (18:00)
[2018-04-20] MEDS ORDERED: MAGNESIUM HYDROXIDE SUSP 30 ML CUP PO PRN (18:00)
[2018-04-20] MEDS ORDERED: ACETAMINOPHEN 325 MG TAB PO PRN ×2 (18:00)
[2018-04-20] MEDS ORDERED: SODIUM CHLORIDE 0.9% FLUSH 10 ML FLUSH IV FLUSH PRN (18:00)
[2018-04-20] MEDS ORDERED: FUROSEMIDE 20 MG/2 ML VIAL IV PUSH ONE (18:00)
[2018-04-20] MEDS ORDERED: hydrALAZINE HCL 25 MG TAB PO PRN (18:00)
[2018-04-20] MEDS ORDERED: cefTRIAXone INJ 1,000 MG in SODIUM CHLORIDE 0.9% INJ 100 ML IV SCH ×2 (18:00→20:00)
[2018-04-20] MEDS ORDERED: ONDANSETRON HCL 4 MG/2 ML VIAL IVP PRN (18:00)
[2018-04-20] MEDS ORDERED: ACETAMINOPHEN 325 MG TAB PO ONE (18:00)
[2018-04-20] MEDS ORDERED: MIRTAZAPINE 15 MG TAB PO SCH (21:00)
[2018-04-20] MEDS: SODIUM CHLORIDE 0.9% FLUSH 10 ML FLUSH IV FLUSH SCH (21:51)
[2018-04-20] MEDS: hydrALAZINE HCL 10 MG TAB PO SCH (21:51)
[2018-04-20] MEDS: METOPROLOL TARTRATE 25 MG TAB PO SCH (21:51)
[2018-04-20] MEDS: FAMOTIDINE 20 MG TAB PO SCH (22:20)
[2018-04-20 23:40] LABS: % SATURATION IRON PROFILE 8.9 % (20-50); IRON (FE) 16 MCG/DL (50-170); TOTAL IRON BINDING CAPACITY 181 MCG/DL (250-450)
[2018-04-20 23:43] LABS: FERRITIN 1157 NG/ML (8-252)
[2018-04-21] MEDS ORDERED: MORPHINE SULFATE 4 MG/ML INJ IV PUSH PRN (00:45)
[2018-04-21 01:10] VITALS: BP 148/72; PULSE 72; RESP 18; TEMP 98.4; O2SAT 95
[2018-04-21 03:45] VITALS: BP 138/68; PULSE 68; RESP 20; TEMP 98.2; O2SAT 96
[2018-04-21] MEDS: hydrALAZINE HCL 10 MG TAB PO SCH (05:49)
[2018-04-21 05:59] VITALS: RESP 18
[2018-04-21 07:09] LABS: BASOPHIL % 0.2 % (0.0-2.0); EOSINOPHIL # 0.4 TH/MM3 (0-0.4); EOSINOPHIL % 2.4 % (0.0-4.0); HEMATOCRIT 32.3 % (35.0-46.0); HEMOGLOBIN 10.8 GM/DL (11.6-15.3); LYMPH % 3.5 % (9.0-44.0); LYMPHOCYTE # 0.6 TH/MM3 (1.0-4.8); MEAN CELL VOLUME 89.8 FL (80.0-100.0); MEAN CORPUSCULAR HEMOGLOBIN 30.1 PG (27.0-34.0); MEAN CORPUSCULAR HGB CONC 33.6 % (32.0-36.0); MEAN PLATELET VOLUME 6.6 FL (7.0-11.0); MONO % 3.7 % (0.0-8.0); MONOCYTE # 0.6 TH/MM3 (0-0.9); NEUT % 90.2 % (16.0-70.0); PLATELET COUNT 257 TH/MM3 (150-450); RED CELL DISTRIBUTION WIDTH 15.4 % (11.6-17.2); WHITE BLOOD COUNT 16.6 TH/MM3 (4.0-11.0)
[2018-04-21 07:36] LABS: CHLORIDE 110 MEQ/L (98-107); SODIUM (NA) 142 MEQ/L (136-145)
[2018-04-21 07:42] LABS: CALCIUM 8.8 MG/DL (8.5-10.1)
[2018-04-21 07:43] LABS: ALBUMIN 2.4 GM/DL (3.4-5.0); BICARBONATE 19.7 MEQ/L (21.0-32.0); BLOOD UREA NITROGEN 72 MG/DL (7-18); GLUCOSE,RANDOM 79 MG/DL (74-106)
[2018-04-21 07:46] LABS: ALT (GPT) 11 U/L (10-53); AST (GOT) 14 U/L (15-37); GLOMERULAR FILTRATION RATE 17 ML/MIN (>89)
[2018-04-21 07:47] LABS: TOTAL BILIRUBIN ADULT 0.4 MG/DL (0.2-1.0); TOTAL PROTEIN 6.7 GM/DL (6.4-8.2)
[2018-04-21 07:49] LABS: ALKALINE PHOSPHATASE 84 U/L (45-117)
[2018-04-21] MEDS ORDERED: SERTRALINE HCL 50 MG TAB PO SCH (09:00)
[2018-04-21] MEDS: SODIUM CHLORIDE 0.9% FLUSH 10 ML FLUSH IV FLUSH SCH (09:00)
[2018-04-21] MEDS ORDERED: amLODIPine BESYLATE 5 MG TAB PO SCH (09:00)
--- NOTE | 2018-04-21 09:44 | HHI.HP ---
[facility] Service [facility] Primary Care Physician Malcolm Gay MD Admission Diagnosis anemia, UTI , HTN Diagnoses: (1) Anemia Diagnosis: Principal Chief Complaint: Patient sent here by returned case inspector for transfusion Travel History International Travel<30 Days: No Contact w/Intl Traveler <30 Da: No Traveled to Known Affected Are: No History of Present Illness Written by Lalo Burns, acting as scribe for Dr. Patel on 04/21/18 at 09: 43. This is a 72-year-old female with rather extensive and complicated medical history who presented to the hospital at the request of her returned case inspector Dr. Locke for transfusion. Patient has had a plethora of workups for her chronic anemia and is followed by a local returned case inspector. She does require frequent transfusions every 2-3 months for her anemia. Patient had blood work done at her local returned case inspector office and she was called by them to go to the hospital to get a blood transfusion, she was told that the returned case inspector had everything arranged for her to come in and get a transfusion and go home. Patient states that she was asymptomatic. She was not experiencing any lightheadedness, dizziness, shortness of breath, difficulty breathing. At times seen the patient she is very eager to go home. She states that her daughter is on her way to pick her up. Patient denies any other symptoms or complaints at this time. Past Family Social History Past Medical History Chronic anemia requiring frequent transfusions Chronic kidney disease stage IV/V Rheumatoid Arthritis Lupus Sjogrens syndrome depression Coronary artery disease History of myocardial infarction Congestive heart failure Hypertension Angina Chronic obstructive pulmonary disease Nephrolithiasis history History of right leg DVT Hyperlipidemia Past Surgical History Cardiac stent Parathyroidectomy Bilateral cataract surgery IVC filter Right femur riding and removal Femoropopliteal bypass Reported Medications Reported Meds & Active Scripts Active Acetaminophen-Codeine 300-30 mg Tab 1 Tab PO Q4H PRN Norvasc (Amlodipine Besylate) 5 Mg Tab 5 Mg PO DAILY Metoprolol Tartrate 25 Mg Tab 25 Mg PO Q12HR Nebulizer 1 Mis Mis Ea .ROUTE DIRECTED Pepcid (Famotidine) 20 Mg Tab 20 Mg PO BID Lasix (Furosemide) 20 Mg Tab 20 Mg PO Q2D Ergocalciferol 50,000 Unit Cap 50,000 Units PO Q7D Prednisone 20 Mg Tab 40 Mg PO DAILY [Budeson-Formot 160-4.5 Mcg Inh] 60 PUFF Aero 2 Puff INH Q12HR Oyster Calcium (Oyster Shell) 500 Mg Calcium (1250 Mg) Tab 500 Mg PO DAILY Hydralazine HCl 10 Mg Tablet 10 Mg PO Q8HR [Albuterol Neb] 2.5 MG/3 ML Nebu 2.5 Mg INH Q4HR NEB PRN Eliquis (Apixaban) 5 Mg Tab 5 Mg PO BID Plavix (Clopidogrel Bisulfate) 75 Mg Tab 75 Mg PO DAILY Oxygen (O2) (Miscellaneous Medication) Inha Liter MYKEL.CANULA CONTINUOUS Oxygen Concentrator Portable Gaseous 2 L/min via Nasal Canula Continuous For 99 months Reported Mirtazapine 30 Mg Tab 30 Mg PO HS Sertraline (Sertraline HCl) 50 Mg Tab 50 Mg PO DAILY Plaquenil (Hydroxychloroquine Sulfate) 200 Mg Tab 200 Mg PO DAILY Take with food Allergies: Coded Allergies: cephalexin (Verified Allergy, Unknown, rash, 04/20/18) diatrizoate meglumine (Verified Allergy, Unknown, rash, 04/20/18) fluconazole (Verified Allergy, Unknown, rash, 04/20/18) gadobenic acid (Verified Allergy, Unknown, rash, 04/20/18) gadodiamide (Verified Allergy, Unknown, rash, 04/20/18) gadoteridol (Verified Allergy, Unknown, rash, 04/20/18) iodixanol (Verified Allergy, Unknown, rash, 04/20/18) iohexol (Verified Allergy, Unknown, rash, 04/20/18) pravastatin (Verified Allergy, Unknown, rash, 04/20/18) Family History Family history reviewed and significant for mother with heart disease and father having unknown type of cancer Social History Patient has quit smoking and has a [id number]-waaj history, does drink alcohol occasionally, denies any illicit drug Physical Exam Vital Signs Vital Signs Date Time Temp Pulse Resp B/P (MAP) Pulse Ox O2 Delivery O2 Flow Rate FiO2 04/21/18 05:59 18 04/21/18 03:45 98.2 68 20 138/68 (91) 96 04/21/18 01:10 98.4 72 18 148/72 (97) 95 04/20/18 23:00 98.8 68 15 151/65 (93) 95 04/20/18 22:45 98.8 86 16 181/71 (107) 89 04/20/18 20:00 99.1 85 16 186/75 (112) 90 04/20/18 18:37 99.1 81 20 162/70 (100) 94 04/20/18 18:37 04/20/18 18:00 74 16 155/66 (95) 96 Room Air 04/20/18 17:14 78 16 180/80 (113) 97 Room Air 04/20/18 17:14 97 Room Air 04/20/18 15:51 99.9 77 18 182/74 (110) 95 Physical Exam GENERAL: Well-developed, frail and cachectic, in no acute distress. alert and orientated HEENT: Head is normocephalic without any lesions or masses noted. Facial features are symmetric. Eyes: Pupils equal round reactive to light. Extraocular muscles are intact. Conjunctivae were clear. Oropharyngeal: Pharynx without any erythema edema. Tongue is midline without deviation. Buccal mucosa is moist without any masses or lesions NECK: Supple without any masses. Trachea midline no deviation. No JVD, no bruits are appreciated CARDIAC: Regular rhythm, regular rate. S1/S2 are heard. No murmurs gallops or rubs. LUNGS: Clear to auscultation bilaterally. No wheeze, rhonchi or rales. No use of accessory muscles on inspiration or expiration. ABDOMEN: Soft, nontender. Nondistended. Bowel sounds heard in all 4 quadrants. No organomegaly or masses. Negative rebound, negative guarding EXTREMITIES: No edema, pulses are equal bilaterally. No cyanosis or clubbing, patient has multiple open ulcerations noted on her bilateral lower extremities, mild erythema, no signs of any exudates or purulence NEUROLOGY: Mood and affect appear appropriate. Cranial nerves II through XII grossly intact. Muscle strength 5/5 in upper and lower extremities bilaterally. Deep tendon reflexes are 2+ in upper and lower extremities bilaterally. Laboratory Laboratory Tests Test 04/20/18 16:42 04/20/18 16:50 04/21/18 06:43 Urine Collection Type CLEAN CATCH Urine Color S Urine Turbidity SLIGHT Urine pH 6.0 Urine Specific [place] 1.015 Urine Protein 300 OR GREATER Urine Glucose (UA) NEG Urine Ketones NEG Urine Occult Blood TRACE Urine Nitrite POS Urine Bilirubin NEG Urine Urobilinogen 0.2 Urine Leukocyte Esterase MOD Urine RBC 0-3 Urine WBC 25-49 Urine WBC Clumps OCC Microscopic Urinalysis Comment CULTURE INDICATED White Blood Count 16.6 16.6 Red Blood Count 2.27 3.60 Hemoglobin 6.8 10.8 Hematocrit 20.4 32.3 Mean Corpuscular Volume 90.0 89.8 Mean Corpuscular Hemoglobin 29.8 30.1 Mean Corpuscular Hemoglobin Concent 33.2 33.6 Red Cell Distribution Width 17.1 15.4 Platelet Count 350 257 Mean Platelet Volume 6.5 6.6 Neutrophils (%) (Auto) 89.6 90.2 Lymphocytes (%) (Auto) 3.8 3.5 Monocytes (%) (Auto) 5.2 3.7 Eosinophils (%) (Auto) 1.2 2.4 Basophils (%) (Auto) 0.2 0.2 Neutrophils # (Auto) 14.9 15.0 Lymphocytes # (Auto) 0.6 0.6 Monocytes # (Auto) 0.9 0.6 Eosinophils # (Auto) 0.2 0.4 Basophils # (Auto) 0.0 0.0 CBC Comment AUTO DIFF DIFF FINAL Differential Comment AUTO DIFF CONFIRMED Prothrombin Time 11.4 Prothromb Time International Ratio 1.1 Activated Partial Thromboplast Time 44.1 Blood Urea Nitrogen 73 72 Creatinine 3.00 2.80 Random Glucose 103 79 Total Protein 7.2 6.7 Albumin 2.7 2.4 Calcium Level 9.0 8.8 Alkaline Phosphatase 89 84 Aspartate Amino Transf (AST/SGOT) 18 14 Alanine Aminotransferase (ALT/SGPT) 13 11 Total Bilirubin 0.2 0.4 Sodium Level 135 142 Potassium Level 4.4 4.0 Chloride Level 105 110 Carbon Dioxide Level 20.1 19.7 Anion Gap 10 12 Estimat Glomerular Filtration Rate 15 17 Iron Level 16 Total Iron Binding Capacity 181 Percent Iron Saturation 8.9 Ferritin 1157 Date/Time Source Procedure Growth Status 04/20/18 16:42 Urine Clean Catch Urine Culture Pending Received Result Diagram: 04/21/18 0643 04/21/18 0643 Imaging Last Impressions Chest X-Ray 04/20/18 1618 Signed Impressions: CONCLUSION: Blunting of the left costophrenic angle may reflect new left effusion Caprini VTE Risk Assessment Caprini VTE Risk Assessment: Mod/High Risk (score >= 2) Caprini Risk Assessment Model Point Value = 1 Point Value = 2 Point Value = 3 Point Value = 5 Age 41-60 Minor surgery BMI > 25 kg/m2 Swollen legs Varicose veins or History of unexplained or recurrent spontaneous Oral contraceptives or hormone replacement Sepsis (< 1 month) Serious lung disease, including pneumonia (< 1 month) Abnormal pulmonary function Acute myocardial infarction Congestive heart failure (< 1 month) History of inflammatory bowel disease Medical patient at bed rest Age 61-74 Arthroscopic surgery Major open surgery (> 45 min) Laparoscopic surgery (> 45 min) Malignancy Confined to bed (> 72 hours) Immobilizing plaster cast Central venous access Age >= 75 History of VTE Family history of VTE Factor V Leiden Prothrombin [id number] Lupus anticoagulant Anticardiolipin antibodies Elevated serum homocysteine Heparin-induced thrombocytopenia Other congenital or acquired thrombophilia Stroke (< 1 month) Elective arthroplasty Hip, pelvis, or leg fracture Acute spinal cord injury (< 1 month) Prophylaxis Regimen Total Risk Factor Score Risk Level Prophylaxis Regimen 0-1 Low Early ambulation 2 Moderate Order ONE of the following: *Sequential Compression Device (SCD) *Heparin 5000 units SQ BID 3-4 Higher Order ONE of the following medications: *Heparin 5000 units SQ TID *Enoxaparin/Lovenox 40 mg SQ daily (WT < 150 kg, CrCl > 30 mL/min) *Enoxaparin/Lovenox 30 mg SQ daily (WT < 150 kg, CrCl > 10-29 mL/min) *Enoxaparin/Lovenox 30 mg SQ BID (WT < 150 kg, CrCl > 30 mL/min) AND/OR *Sequential Compression Device (SCD) 5 or more Highest Order ONE of the following medications: *Heparin 5000 units SQ TID (Preferred with Epidurals) *Enoxaparin/Lovenox 40 mg SQ daily (WT < 150 kg, CrCl > 30 mL/min) *Enoxaparin/Lovenox 30 mg SQ daily (WT < 150 kg, CrCl > 10-29 mL/min) *Enoxaparin/Lovenox 30 mg SQ BID (WT < 150 kg, CrCl > 30 mL/min) AND *Sequential Compression Device (SCD) Assessment and Plan Assessment and Plan 72-year-old female with chronic anemia from chronic medical illnesses who was sent here by her returned case inspector for transfusion. Chronic anemia requiring frequent transfusions -Patient was called by her returned case inspector and told to come to the hospital for transfusion -Patient does have rather extensive history of chronic anemia likely secondary to chronic medical conditions. She has had multiple GI workup with endoscopies , follows with hematology and does get transfusions regularly approximately every 2-3 months. -Status post transfusion 2 units of packed red blood cells -Hemoglobin significant improved from 6.8-10.8 All other chronic medical illnesses to include hypertension, congestive heart failure, coronary disease, lupus, chronic kidney disease stage IV/V, hyperlipidemia, coagulopathy -Home medications have been continued DVT prevention -Continue on Eliquis Discharge disposition Discharge home in stable condition Activity: Ad oswald. Diet: Healthy heart diet Medication per medication reconciliation Follow-up with primary medical doctor in 1 week This note was transcribed by victor m Burns. I, Dr. Vitor Patel personally performed the history, physical exam, and medical decision making; and confirmed the accuracy of the information in the transcribed note. Authenticated by Dr. Vitor Patel on 04/21/18 at 09:43. Code Status Full code Discussed Condition With Patient, ED physician, daughter Problem Qualifiers (1) Anemia: Qualified Codes: N18.9 - Chronic kidney disease, unspecified; D63.1 - Anemia in chronic kidney disease Lalo Burns April 21, 2018 09:44 Vitor Patel MD April 21, 2018 09:46
[2018-04-21] MEDS: FAMOTIDINE 20 MG TAB PO SCH (09:47)
[2018-04-21] MEDS: METOPROLOL TARTRATE 25 MG TAB PO SCH (09:47)
--- NOTE | 2018-04-21 11:07 | HHI.DCPOC ---
Discharge Care Plan Diagnosis: (1) Anemia Goals to Promote Your Health * To prevent worsening of your condition and complications * To maintain your health at the optimal level Directions to Meet Your Goals Take your medications as prescribed Follow your dietary instruction Follow activity as directed Keep your appointments as scheduled Take your immunizations and boosters as scheduled If your symptoms worsen call your PCP, if no PCP go to Urgent Care Center or Emergency Room Smoking is Dangerous to Your Health. Avoid second hand smoke Call the 24-hour hour crisis hotline for domestic abuse at Lalo Burns April 21, 2018 11:07
--- NOTE | 2018-04-21 15:06 | EKG ---
Date Performed: 04/20/2018 Time Performed: 16:30:24 PTAGE: 72 years EKG: Sinus rhythm WITH FIRST DEGREE AV BLOCK BORDERLINE RIGHT AXIS DEVIATION MODERATE INTRAVENTRICULAR CONDUCTION JAYLON Y MINIMAL ST DEPRESSION ABNORMAL ECG Compared to PREVIOUS TRACING , ST-T changes have somewhat improved. PREVIOUS TRACIN02/08/2018 15.4 2 DOCTOR: Giovany Loera Interpretating Date/Time 04/21/2018 15:04:13
== END 2018-04-21 12:40 | disposition home or self-care (01) | DRG 812 ==
LOC: PHED 15:27 → PHEDA 17:33 → PH3A 18:34
PROVIDERS: ADMIT Hospitalist; ATTEND Hospitalist
PROC: 30233N1 Transfusion of Nonautologous Red Blood Cells into Peripheral Vein, Percutaneous Approach (ICD-10-PCS; principal; 2018-04-20)
DX: D63.1 Anemia in chronic kidney disease (principal); I13.2 Hypertensive heart and chronic kidney disease with heart failure and with stage 5 chronic kidney disease, or end stage renal disease; N18.5 Chronic kidney disease, stage 5; N39.0 Urinary tract infection, site not specified; L97.319 Non-pressure chronic ulcer of right ankle with unspecified severity; L97.429 Non-pressure chronic ulcer of left heel and midfoot with unspecified severity; L97.529 Non-pressure chronic ulcer of other part of left foot with unspecified severity; M35.00 Sjogren syndrome, unspecified; I50.9 Heart failure, unspecified; M06.9 Rheumatoid arthritis, unspecified; J44.9 Chronic obstructive pulmonary disease, unspecified; E07.9 Disorder of thyroid, unspecified; I25.10 Atherosclerotic heart disease of native coronary artery without angina pectoris; E78.5 Hyperlipidemia, unspecified; F32.9 Major depressive disorder, single episode, unspecified; I25.2 Old myocardial infarction; Z87.442 Personal history of urinary calculi; Z88.1 Allergy status to other antibiotic agents; Z79.01 Long term (current) use of anticoagulants; Z86.718 Personal history of other venous thrombosis and embolism; Z95.5 Presence of coronary angioplasty implant and graft; Z82.49 Family history of ischemic heart disease and other diseases of the circulatory system; Z87.891 Personal history of nicotine dependence
CPT/HCPCS: 36430; 71045; 80053; 81001; 82728; 83540; 83550; 85025; 85610; 85730; 86403; 86850; 86900; 86901; 86920; 87086; 87186; 93005; 99285; J0696; J1940; J2270; J7050; P9016

== ENCOUNTER 2018-05-21 15:47 | Inpatient (IN) ==
[2018-05-26] MEDS ORDERED: Temazepam 15 MG Capsule PO PRN (17:50)
[2018-05-27] MEDS ORDERED: Vancomycin Consult Pharmacy 1 EACH OTHER SCH (00:01)
[2018-05-27] MEDS ORDERED: Bisacodyl 10 MG Supp RECTAL PRN (00:01)
[2018-05-27] MEDS ORDERED: Naloxone Inj 0.4 MG/ML Vial IV.PUSH PRN (00:01)
[2018-05-27] MEDS ORDERED: Acetaminophen 325 MG Tablet PO PRN (00:01)
[2018-05-27] MEDS: hydrALAZINE 10 MG Tablet PO SCH ×3 (06:35→22:18)
[2018-05-27] MEDS: Metoprolol Tartrate 25 MG Tablet PO SCH ×2 (09:04→22:18)
[2018-05-27] MEDS: amLODIPine 5 MG Tablet PO SCH (09:04)
[2018-05-27] MEDS: Senna/Docusate Sodium 8.6/50 MG Tablet PO SCH ×2 (09:05→22:19)
[2018-05-27] MEDS: Sertraline 50 MG Tablet PO SCH (09:05)
[2018-05-27] MEDS: Hydroxychloroquine 200 MG Tablet PO SCH (09:15)
--- NOTE | 2018-05-27 10:41 | P.PNIM ---
Subjective Interval history: Awaiting placement in longterm facility. Patient discharged on 2017. Physical Exam Vital signs: Vital Signs 05/27/18 00:00 05/27/18 04:00 05/27/18 08:00 Temperature 97 F L 97.2 F L 98 F Pulse Rate 70 76 84 Respiratory Rate 18 18 18 Blood Pressure 152/72 H 145/69 H 143/69 H Pulse Oximetry 99 95 96 Intake & Output 05/26/18 05/27/18 05/27/18 18:59 06:59 18:59 Weight 36.1 kg - Routine HEENT Exam Comments: GENERAL: NAD, A&Ox3 HEAD: Normocephalic. NECK: Supple, trachea midline. No lymphadenopathy. EYES: No scleral icterus. No injection or drainage. CARDIOVASCULAR: Regular rate and rhythm without murmurs, gallops, or rubs. RESPIRATORY: Breath sounds equal bilaterally. No accessory muscle use. GASTROINTESTINAL: Abdomen soft, non-tender, nondistended. MUSCULOSKELETAL: No cyanosis, or edema. Status post amputation of left lower extremity. SKIN: Warm and dry. NEURO: No focal neurological deficitis. Results - Labs CBC & Chem 7: 05/26/18 07:29 05/26/18 07:29 Labs: Laboratory Results - last 24 hr 05/24/18 05/24/18 05/25/18 05:32 05:32 07:01 WBC 20.7 H RBC 2.91 L Hgb 8.3 L Hct 25.8 L MCV 88.7 MCH 28.6 MCHC 32.3 RDW 16.0 Plt Count 452 H MPV 6.4 L Neut % (Auto) 87.0 H Lymph % (Auto) 6.3 L [place] % (Auto) 6.4 Eos % (Auto) 0.2 Baso % (Auto) 0.1 Neut # (Auto) 18.0 H Lymph # (Auto) 1.3 [place] # (Auto) 1.3 H Eos # (Auto) 0.0 Baso # (Auto) 0.0 CBC Comment DIFF FINAL Sodium 142 144 Potassium 4.0 3.9 Chloride 112 H 114 H Carbon Dioxide 19.8 L 19.5 L Anion Gap 10 11 BUN 55 H 49 H Creatinine 2.27 H 1.91 H Estimated GFR 21 L 26 L POC Glucose Random Glucose 91 63 L Calcium 7.8 L 7.6 L Total Bilirubin 0.2 AST 24 ALT 25 Alkaline Phosphatase 103 Total Protein 5.0 L Albumin 1.3 L Random Vancomycin 21.3 05/25/18 05/26/18 05/26/18 07:01 07:29 07:29 WBC 15.5 H 16.1 H RBC 3.25 L 3.26 L Hgb 9.4 L 9.4 L Hct 29.0 L 28.9 L MCV 89.2 88.5 MCH 28.8 28.9 MCHC 32.3 32.6 RDW 16.0 16.1 Plt Count 373 396 MPV 6.7 L 6.7 L Neut % (Auto) 87.3 H 86.4 H Lymph % (Auto) 4.8 L 6.1 L [place] % (Auto) 6.6 6.4 Eos % (Auto) 1.1 0.9 Baso % (Auto) 0.2 0.2 Neut # (Auto) 13.5 H 13.9 H Lymph # (Auto) 0.7 L 1.0 [place] # (Auto) 1.0 H 1.0 H Eos # (Auto) 0.2 0.1 Baso # (Auto) 0.0 0.0 CBC Comment DIFF FINAL DIFF FINAL Sodium 145 Potassium 3.8 Chloride 116 H Carbon Dioxide 19.5 L Anion Gap 10 BUN 46 H Creatinine 1.97 H Estimated GFR 25 L POC Glucose Random Glucose 72 L Calcium 7.7 L Total Bilirubin 0.2 AST 26 ALT 24 Alkaline Phosphatase 110 Total Protein 5.4 L Albumin 1.3 L Random Vancomycin 28.3 05/27/18 07:47 WBC RBC Hgb Hct MCV MCH MCHC RDW Plt Count MPV Neut % (Auto) Lymph % (Auto) [place] % (Auto) Eos % (Auto) Baso % (Auto) Neut # (Auto) Lymph # (Auto) [place] # (Auto) Eos # (Auto) Baso # (Auto) CBC Comment Sodium Potassium Chloride Carbon Dioxide Anion Gap BUN Creatinine Estimated GFR POC Glucose 66 L Random Glucose Calcium Total Bilirubin AST ALT Alkaline Phosphatase Total Protein Albumin Random Vancomycin Assessment and Plan - Plan 72-year-old female admitted secondary to lower extremity wound which was chronic. Now status post amputation of the left lower extremity. Patient discharged on 05/25/2018. Medically stable for discharge when placement available. Status post left lower extremity amputation Nonhealing left foot wounds/sepsis/peripheral vascular disease Patient is doing well Dressing changes planned for 05/25/2018 Surgeons following Follow with surgeons as an outpatient Will need longterm facility rehab at discharge Sepsis Present at time of admit Resolved Hypoalbuminemia This appears to be related to chronic disease and infection rather than malnutrition Continue present diet This should improve after amputation Acute kidney injury on chronic kidney disease Monitor renal function Avoid nephrotoxins Transaminitis Improved Acute blood loss anemia on Chronic anemia Resolved Follows an outpatient History of DVT Continue Eliquis CHF/COPD/lupus/hypertension No change to baseline treatments DVT prophylaxis Eliquis Discharge planning Discharge to longterm facility for further physical therapy
[2018-05-27] MEDS ORDERED: Aluminum/Magnesium/Simethacone Susp 30 ML UDC PO PRN (12:25)
[2018-05-27] MEDS ORDERED: Mirtazapine 15 MG Tablet PO SCH (21:00)
[2018-05-28] MEDS: hydrALAZINE 10 MG Tablet PO SCH ×2 (05:49→13:14)
[2018-05-28] MEDS: amLODIPine 5 MG Tablet PO SCH (09:57)
[2018-05-28] MEDS: Metoprolol Tartrate 25 MG Tablet PO SCH (09:57)
[2018-05-28] MEDS: Senna/Docusate Sodium 8.6/50 MG Tablet PO SCH (09:58)
[2018-05-28] MEDS: Hydroxychloroquine 200 MG Tablet PO SCH (09:58)
[2018-05-28] MEDS: Sertraline 50 MG Tablet PO SCH (09:59)
--- NOTE | 2018-05-28 11:36 | P.PNIM ---
Subjective Interval history: [facility] in jail facility pending for today. Patient discharged on 05/25/2018. Physical Exam Vital signs: Vital Signs 05/27/18 12:00 05/27/18 16:00 05/27/18 20:00 Temperature 97.9 F 97.8 F 97.9 F Pulse Rate 71 80 80 Respiratory Rate 18 18 18 Blood Pressure 142/69 H 115/63 131/68 Pulse Oximetry 98 98 97 05/28/18 00:00 05/28/18 04:00 05/28/18 06:37 Temperature 98.9 F 97.9 F Pulse Rate 74 84 Respiratory Rate 16 16 18 Blood Pressure 153/71 H 121/77 Pulse Oximetry 96 96 05/28/18 08:00 Temperature 98.4 F Pulse Rate 83 Respiratory Rate 17 Blood Pressure 137/65 Pulse Oximetry 97 Intake & Output 05/27/18 05/28/18 05/28/18 18:59 06:59 18:59 Intake Total 480 / 480 480 / 480 Output Total 750 / 750 1200 / 1200 Balance -270 / -270 -720 / -720 Weight 35.5 kg Intake: Oral 480 / 480 480 / 480 Output: Urine 750 / 750 1200 / 1200 Stool 0 / 0 Other: # Voids 3 # Incontinent Voids 1 Date of Last Bowel Movement 05/26/18 # Bowel Movements 0 Results - Labs CBC & Chem 7: 05/26/18 07:29 05/27/18 09:15 Assessment and Plan - Plan 72-year-old female admitted secondary to lower extremity wound which was chronic. Now status post amputation of the left lower extremity. Patient discharged on 05/25/2018. Medically stable for discharge when placement available. Status post left lower extremity amputation Nonhealing left foot wounds/sepsis/peripheral vascular disease Patient is doing well Dressing changes planned for 05/25/2018 Surgeons following Follow with surgeons as an outpatient Will need jail facility rehab at discharge Sepsis Present at time of admit Resolved Hypoalbuminemia This appears to be related to chronic disease and infection rather than malnutrition Continue present diet This should improve after amputation Acute kidney injury on chronic kidney disease Monitor renal function Avoid nephrotoxins Transaminitis Improved Acute blood loss anemia on Chronic anemia Resolved Follows an outpatient History of DVT Continue Eliquis CHF/COPD/lupus/hypertension No change to baseline treatments DVT prophylaxis Eliquis Discharge planning Discharge to jail facility for further physical therapy
[2018-05-28] MEDS ORDERED: Levofloxacin 500 mg Premix Inj 500 MG/100 ML PIGGYBACK IV.SIG SCH (20:00)
== END 2018-05-28 17:29 ==
LOC: N04 20:49
PROVIDERS: ADMIT Family Medicine; ATTEND Family Medicine

== ENCOUNTER 2018-08-13 06:18 | Inpatient (IN) ==
[2018-08-13] MEDS ORDERED: Acetaminophen/Codeine 300/30 MG Tablet PO ONE (07:10)
[2018-08-13] MEDS ORDERED: Sod Chloride 0.9% Inj 1,000 ML IV.SIG ONE (07:10)
[2018-08-13 07:48] LABS: Baso # (Auto) 0.1 th/mm3 (0.0-0.2); Baso % (Auto) 1.2 % (0.0-2.0); Eos # (Auto) 0.1 th/mm3 (0.0-0.4); Eos % (Auto) 1.7 % (0.0-4.0); Hematocrit 33.1 % (35.0-46.0); Hemoglobin 10.5 gm/dL (11.6-15.3); Lymph # (Auto) 0.6 th/mm3 (1.0-4.8); Lymph % (Auto) 6.7 % (9.0-44.0); Mean Corpuscular HGB Conc 31.8 % (32.0-36.0); Mean Corpuscular Hemoglobin 28.7 pg (27.0-34.0); Mean Corpuscular Volume 90.3 fL (80.0-100.0); Mean Platelet Volume 6.8 fL (7.0-11.0); Mono # (Auto) 0.7 th/mm3 (0.0-0.9); Mono % (Auto) 7.4 % (0.0-8.0); Neut # (Auto) 7.5 th/mm3 (1.8-7.7); Platelet Count 424 th/mm3 (150-450); Red Blood Count 3.67 mil/mm3 (4.00-5.30); Red Cell Distribution Width 17.3 % (11.6-17.2)
[2018-08-13 08:07] LABS: Alanine Aminotransferase 12 U/L (10-53); Albumin 2.6 g/dL (3.4-5.0); Anion Gap 12 meq/L (5-15); Aspartate Aminotransferase 15 U/L (15-37); Blood Urea Nitrogen 74 mg/dL (7-18); Calcium 9.3 mg/dL (8.5-10.1); Carbon Dioxide 16.4 meq/L (21.0-32.0); Chloride 104 meq/L (98-107); Glomerular Filtration Rate 19 mL/min (>89); Glucose,Random 93 mg/dL (74-106); Potassium 4.3 meq/L (3.5-5.1); Sodium 132 meq/L (136-145)
[2018-08-13 08:09] LABS: Alkaline Phosphatase 117 U/L (45-117); Total Protein 7.3 g/dL (6.4-8.2)
--- NOTE | 2018-08-13 08:17 | ED ---
HPI General Chief complaint: Dizziness Stated complaint: dizziness Time Seen by Provider: 08/13/18 07:03 Source: patient, family and old records reviewed Mode of arrival: EMS Limitations: physical limitation (Left BKA) History of Present Illness HPI Narrative: The patient is a 73-year-old female with chronic kidney disease left leg amputation and chronic wounds to right ankle and right hip that was brought in by family due to weakness and dizziness for the past 36 hours. Patient reports increased urination. No diarrhea. No fever or chills. No nausea vomiting. No abdominal pain. Patient feels fatigued. She also stated that the right hip wound started draining more the past couple days. MD Complaint: generalized weakness Onset (ago): hour(s) (36) Duration: constant Location: generalized Migration: none Related Data Home Medications Medication Instructions Recorded Confirmed acetaminophen-codeine 1 tab PO Q4HR PRN 05/26/18 08/13/18 amlodipine 5 mg PO DAILY 05/26/18 08/13/18 apixaban 5 mg PO BID 05/26/18 08/13/18 clopidogrel 75 mg PO DAILY 05/26/18 08/13/18 furosemide 20 mg PO Q2D 05/26/18 08/13/18 hydralazine 10 mg PO Q8H 05/26/18 08/13/18 hydrocodone-acetaminophen 1 tab PO Q4H PRN 05/26/18 08/13/18 hydroxychloroquine 200 mg PO DAILY 05/26/18 08/13/18 lanthanum 500 mg PO TID 05/26/18 08/13/18 metoprolol tartrate 25 mg PO Q12H 05/26/18 08/13/18 mirtazapine 30 mg PO HS 05/26/18 08/13/18 sertraline 50 mg PO DAILY 05/26/18 08/13/18 Allergies Allergy/AdvReac Type Severity Reaction Status Date / Time cephalexin Allergy Severe rash Verified 08/13/18 06:34 diatrizoate meglumine Allergy Severe rash Verified 08/13/18 06:34 fluconazole Allergy Severe rash Verified 08/13/18 06:34 gadobenic acid Allergy Severe rash Verified 08/13/18 06:34 gadodiamide Allergy Severe rash Verified 08/13/18 06:34 gadoteridol Allergy Severe rash Verified 08/13/18 06:34 iodixanol Allergy Severe rash Verified 08/13/18 06:34 iohexol Allergy Severe rash Verified 08/13/18 06:34 pravastatin Allergy Severe rash Verified 08/13/18 06:34 erythromycin base AdvReac Urinary Verified 08/13/18 06:34 Freq (Inc/Dec) Review of Systems ROS: all other systems reviewed are negative PMFSH History History Provided By: Patient, Family Member and Medical Record Medical History Medical History Anxiety (Acute) HBP (high blood pressure) (Acute) Surgical History Surgical History History of amputation of extremity (Acute) Hx of heart artery stent (Acute) Social History Social History Second Hand Smoke Exposure: No Smoking Status: Never smoker How Often Do You Have a Drink Containing Alcohol: Never Recent Travel in [facility] within the Last 8 Weeks: No Recent Out of Country Travel within the Last 8 Weeks: No Exam Narrative Exam Narrative: GENERAL: Cachectic emaciated in no distress SKIN: Dry scaly skin. With ecchymosis and very poor turgor. There is a chronic one on the right foot and ankle which is dressed with gauze. Leg appears erythematous and is tender to palpation. She also has draining wound that is chronic on the right lateral hip area with purulent discharge. HEAD: Atraumatic. Normocephalic. EYES: Pupils equal and round. No scleral icterus. No injection or drainage. ENT: No nasal bleeding or discharge. Mucous membranes pink and moist. NECK: Trachea midline. No JVD. CARDIOVASCULAR: Regular rate and rhythm. No murmur appreciated. RESPIRATORY: No accessory muscle use. Clear to auscultation. Breath sounds equal bilaterally. GASTROINTESTINAL: Abdomen soft, non-tender, nondistended. Hepatic and splenic margins not palpable. MUSCULOSKELETAL: No obvious deformities. No clubbing. No cyanosis. No edema. NEUROLOGICAL: Awake and alert. No obvious cranial nerve deficits. Motor grossly within normal limits. Normal speech. PSYCHIATRIC: Appropriate mood and affect; insight and judgment normal. Course Hospital Course: Patient was started on hydration due to elevated BUN/creatinine. Reevaluation(s) Reevaluation #1: Resting comfortably no distress. Hemodynamically stable. Time: 08:51 Reevaluation #2: Patient is sleeping comfortably no distress. Fluids completed. We are awaiting urinalysis completion. Family at bedside informed that the patient is dehydrated and her kidney function has worsened. Time: 09:23 Initial Documented Vital Signs Temperature 97.5 F L 08/13/18 06:34 Pulse Rate 72 08/13/18 06:34 Respiratory Rate 17 08/13/18 06:34 Blood Pressure 147/65 H 08/13/18 06:34 Last Documented Vital Signs Temperature 97.7 F 08/13/18 09:12 Pulse Rate 78 08/13/18 09:12 Respiratory Rate 16 08/13/18 09:12 Blood Pressure 142/67 H 08/13/18 09:12 Pulse Oximetry 98 08/13/18 09:12 Medical Decision Making MDM Narrative Medical decision making narrative: UA suggestive of urinary tract infection she was started on Cipro. She does have 2 wounds on the right lower extremity which are chronic. Cultures were obtained from the hip wound because there was purulent discharge. No leukocytosis or fever. Hemodynamically stable. Elevated creatinine above baseline and BUN suggestive of mild dehydration in setting of urinary tract infection. Patient was admitted for hydration and IV antibiotics. Medical Screen Exam Complete: Yes Emergency Medical Condition: Yes Lab Data Lab results reviewed: Yes I reviewed the patient's lab results. Result diagrams: 08/13/18 07:30 08/13/18 07:30 Lab Results 08/13/18 08/13/18 08/13/18 Range/Units 07:30 07:30 08:51 WBC 9.0 (4.0-11.0) th/mm3 RBC 3.67 L (4.00-5.30) mil/mm3 Hgb 10.5 L (11.6-15.3) gm/dL Hct 33.1 L (35.0-46.0) % MCV 90.3 (80.0-100.0) fL MCH 28.7 (27.0-34.0) pg MCHC 31.8 L (32.0-36.0) % RDW 17.3 H (11.6-17.2) % Plt Count 424 (150-450) th/mm3 MPV 6.8 L (7.0-11.0) fL Neut % (Auto) 83.0 H (16.0-70.0) % Lymph % (Auto) 6.7 L (9.0-44.0) % Pepin % (Auto) 7.4 (0.0-8.0) % Eos % (Auto) 1.7 (0.0-4.0) % Baso % (Auto) 1.2 (0.0-2.0) % Neut # (Auto) 7.5 (1.8-7.7) th/mm3 Lymph # (Auto) 0.6 L (1.0-4.8) th/mm3 Pepin # (Auto) 0.7 (0.0-0.9) th/mm3 Eos # (Auto) 0.1 (0.0-0.4) th/mm3 Baso # (Auto) 0.1 (0.0-0.2) th/mm3 WBC Differential . Differential Comment Auto diff final Sodium 132 L (136-145) meq/L Potassium 4.3 (3.5-5.1) meq/L Chloride 104 (98-107) meq/L Carbon Dioxide 16.4 L (21.0-32.0) meq/L Anion Gap 12 (5-15) meq/L BUN 74 H (7-18) mg/dL Creatinine 2.50 H (0.50-1.00) mg/dL Estimated GFR 19 L (>89) mL/min Random Glucose 93 (74-106) mg/dL Calcium 9.3 (8.5-10.1) mg/dL Total Bilirubin 0.2 (0.2-1.0) mg/dL AST 15 (15-37) U/L ALT 12 (10-53) U/L Alkaline Phosphatase 117 (45-117) U/L Total Protein 7.3 (6.4-8.2) g/dL Albumin 2.6 L (3.4-5.0) g/dL Urine Color Yellow (Yellw/Straw) Urine Clarity Cloudy H (Clear) Urine pH 6.0 (5.0-8.5) Ur Specific [place] 1.008 (1.002-1.035) Urine Protein 100 H (Neg-Trace) mg/dL Urine Glucose (UA) Negative (Negative) mg/dL Urine Ketones Negative (Negative) mg/dL Urine Occult Blood Small H (Negative) Urine Nitrate Positive H (Negative) Urine Bilirubin Negative (Negative) Urine Urobilinogen Less than 2 (Less than 2) mg/dL Ur Leukocyte Esterase Large H (Negative) Urine RBC 5 H (0-3) /hpf Urine WBC (0-5) /hpf Urine Bacteria Few H (None) /hpf Micro UA Comment Culture indicated Ur Microscopic Review Not Reportable Urine Culture Comments Culture indicated Imaging Data Radiologist's impression: Chest X-Ray 08/13/18 07:10 CONCLUSION: Chronic interstitial changes and pleural calcifications similar to previous exam. Discharge Plan Discharge Disposition Patient Disposition: 30 Still Patient Discharge Condition Condition: Good Discharge Details Diagnosis: Acute UTI, RADHA (acute kidney injury), Dehydration Physicians Team ED Provider: Wyatt Moser Primary Care Provider: UNKNOWN, Rxs /Orders / Referrals /Forms Prescriptions: No Action acetaminophen-codeine 300-30 mg Tablet 1 tab PO Q4HR PRN (Reason: Pain) RF: 0 clopidogrel 75 mg Tablet 75 mg PO DAILY RF: 0 amlodipine 5 mg Tablet 5 mg PO DAILY RF: 0 apixaban 5 mg Tablet 5 mg PO BID RF: 0 hydralazine 10 mg Tablet 10 mg PO Q8H RF: 0 hydrocodone-acetaminophen 5-325 mg Tablet 1 tab PO Q4H PRN (Reason: Pain) RF: 0 mirtazapine 30 mg Tablet 30 mg PO HS RF: 0 furosemide 20 mg Tablet 20 mg PO Q2D RF: 0 hydroxychloroquine 200 mg Tablet 200 mg PO DAILY RF: 0 sertraline 50 mg Tablet 50 mg PO DAILY RF: 0 metoprolol tartrate 25 mg Tablet 25 mg PO Q12H RF: 0 lanthanum 500 mg Tablet,Chewable 500 mg PO TID RF: 0 Status ED Status: With Doctor
--- NOTE | 2018-08-13 08:36 | XR ---
EXAM DATE: 08/13/2018 8:22 AM EDT AGE/SEX: 73 years / Female INDICATIONS: Weakness. CLINICAL DATA: This is the patient's initial encounter. Patient reports that signs and symptoms have been present for 2 days and indicates a pain score of 0/10. MEDICAL/SURGICAL HISTORY: None. None. Left BKA COMPARISON: [facility], CHEST SINGLE AP, 04/20/2018. . FINDINGS: The heart is normal in size. The lungs demonstrate chronic appearing interstitial changes and pleural calcification on the left. This is similar to the previous. The osseous structures demonstrate old, healed right-sided rib fractures. No pneumothorax is identified. CONCLUSION: Chronic interstitial changes and pleural calcifications similar to previous exam. Electronically signed by: Carlitos Maya MD 08/13/2018 8:35 AM EDT
[2018-08-13 09:21] LABS: Bacteria,Urine Few /hpf; Bilirubin,Urine Negative (Negative); Clarity,Urine Cloudy (Clear); Color,Urine Yellow (Yellw/Straw); Glucose,Urine (UA) Negative (Negative); Leukocyte Esterase,Urine Large (Negative); Nitrite,Urine Positive (Negative); Specific Gravity,Urine 1.008 (1.002-1.035)
[2018-08-13] MEDS ORDERED: Ciprofloxacin 400 MG/200 ML 400 MG/200 ML PIGGYBACK IV.SIG ONE (09:27)
[2018-08-13] MEDS ORDERED: Bisacodyl 10 MG Supp RECTAL PRN (10:03)
[2018-08-13] MEDS ORDERED: Acetaminophen 325 MG Tablet PO PRN (10:03)
[2018-08-13] MEDS ORDERED: Zolpidem Tartrate 5 MG Tablet PO PRN (10:03)
[2018-08-13] MEDS ORDERED: Naloxone Inj 0.4 MG/ML Vial IV.PUSH PRN (10:06)
[2018-08-13] MEDS: Sod Chloride 0.9% Inj 1,000 ML IV.CONT SCH ×3 (10:56→23:51)
[2018-08-13] MEDS: Morphine Inj 4 MG/ML Vial IV.PUSH PRN ×2 (10:58→15:22)
[2018-08-13] MEDS: Metoprolol Tartrate 25 MG Tablet PO SCH ×2 (10:59→23:48)
[2018-08-13] MEDS: amLODIPine 5 MG Tablet PO SCH (10:59)
[2018-08-13] MEDS: Sertraline 50 MG Tablet PO SCH (10:59)
[2018-08-13] MEDS: Hydroxychloroquine 200 MG Tablet PO SCH (10:59)
[2018-08-13] MEDS: hydrALAZINE 10 MG Tablet PO SCH ×2 (10:59→18:28)
[2018-08-13 13:49] LABS: Troponin I 0.02 ng/mL (0.02-0.05)
--- NOTE | 2018-08-13 15:07 | P.HPIM ---
History of Present Illness Service: [facility] Primary Care Physician: UNKNOWN Chief Complaint: DIZZINESS History of Present Illness: Is a 73-year-old female with history of chronic kidney disease status post left [id number] amputation and chronic wounds to the right ankle and right hip brought in by family due to weakness and dizziness for the past 36 hours. Patient reports decreased urination. Denies any diarrhea she denies chills. Denies any nausea vomiting but is now having some nausea vomiting in the room. Denies any pain has felt fatigued. States that her right hip wound started draining more the last couple days as well as her right ankle area. Patient HAS seen podiatry previously as well as Dr. Keene Patient was noted to have a urinary tract infection is also having nausea and vomiting We will continue to follow here. We will consult Dr. Keene Review of Systems All other systems reviewed negative except as stated in HPI [facility] - History History Provided By: Patient, Family Member - Medical History Medical History: Medical History (Last Updated 08/13/18 @ 15:02 by Hector Rivers DO) Anxiety Chronic kidney disease, stage III (moderate) Coronary artery disease Failure to thrive HBP (high blood pressure) Noncompliance Peripheral vascular disease Peripheral vascular disease of lower extremity with ulceration Protein-calorie malnutrition, severe - Surgical History Surgical History: Surgical History (Last Reviewed 08/13/18 @ 14:46 by Shaila Keane) History of amputation of extremity Hx of heart artery stent - Family History Family History: Family History (Last Updated 08/13/18 @ 15:01 by Hector Rivers DO) Other Family history of hypertension - Social History I have reviewed the patient's Social History: Yes - Tobacco History Second Hand Smoke Exposure: No Tobacco Use In Past 30 Days: No Smoking Status: Former smoker Tobacco Type: Cigarettes, Pipe, Cigars - Alcohol History How Often Do You Have a Drink Containing Alcohol: 4 or more times a week - Substance Use History Substance History: No History of Abuse - Travel History History of Recent Travel: No Recent Travel in the [place] Within the Last 8 Weeks: No Recent Travel Out of the Country Within the Last 8 Weeks: No - Immunization History Tetanus Immunization: >5 Years Hx Influenza Vaccine This Season: No Medications and Allergies Active Medications: Active Medications Acetaminophen (Tylenol) 650 mg PO Q4H PRN PRN Reason: Temp > 100.4 Acetaminophen/Codeine Phosphate (Tylenol W/Cod #3) 1 tab PO Q4HR PRN PRN Reason: PAIN SCALE 1 TO 10 Al Hydroxide/Mg Hydroxide (Milk Of Magnesia Liq) 30 ml PO Q12H PRN PRN Reason: Mild Constipation Amlodipine Besylate (Norvasc) 5 mg PO DAILY [facility] Last Admin: 08/13/18 10:59 Dose: 5 mg Apixaban (Eliquis) 5 mg PO BID [facility] Last Admin: 08/13/18 10:59 Dose: 5 mg Bisacodyl (Dulcolax Supp) 10 mg RECTAL DAILY PRN PRN Reason: SEVERE CONSITIPATION Clopidogrel Bisulfate (Plavix) 75 mg PO DAILY [facility] Last Admin: 08/13/18 10:59 Dose: 75 mg Furosemide (Lasix) 20 mg PO Q2D [facility] Hydralazine HCl (Apresoline) 10 mg PO Q8H [facility] Last Admin: 08/13/18 10:59 Dose: 10 mg Hydroxychloroquine Sulfate (Plaquenil) 200 mg PO DAILY [facility] Last Admin: 08/13/18 10:59 Dose: 200 mg Ciprofloxacin/Dextrose (Cipro 200 Mg/100 Ml Inj) 200 mg in 100 mls @ 100 mls/ hr IV.SIG Q12H [facility] Sodium Chloride (Ns Inj) 1,000 mls @ 100 mls/hr IV.CONT .Q10H [facility] Last Admin: 08/13/18 10:56 Dose: 100 mls/hr Lactulose (Lactulose Liq) 30 ml PO DAILY PRN PRN Reason: SEVERE CONSITIPATION Lanthanum Carbonate (Fosrenol Chewable) 500 mg PO TID [facility] Last Admin: 08/13/18 12:35 Dose: Not Given Metoprolol Tartrate (Lopressor) 25 mg PO Q12H [facility] Last Admin: 08/13/18 10:59 Dose: 25 mg Mirtazapine (Remeron) 30 mg PO HS [facility] Morphine Sulfate (Morphine Inj) 4 mg IV.PUSH Q3H PRN PRN Reason: PAIN 6-10;IF UNABLE TO TAKE PO Last Admin: 08/13/18 10:58 Dose: 4 mg Morphine Sulfate (Morphine Inj) 2 mg IV.PUSH Q3H PRN PRN Reason: PAIN 3-5; IF UABLE TO TAKE PO Naloxone HCl (Narcan Inj) 0.4 mg IV.PUSH UNSCH PRN PRN Reason: SEE LABEL COMMENTS Ondansetron HCl (Zofran Inj) 4 mg IV.PUSH Q6H PRN PRN Reason: NAUSEA OR VOMITING Last Admin: 08/13/18 13:59 Dose: 4 mg Senna/Docusate Sodium (Netta-Colace) 1 tab PO BID [facility] Sennosides (Senokot) 17.2 mg PO Q12H PRN PRN Reason: Moderate Constipation Sertraline HCl (Zoloft) 50 mg PO DAILY [facility] Last Admin: 08/13/18 10:59 Dose: 50 mg Zolpidem Tartrate (Ambien) 5 mg PO HS PRN PRN Reason: INSOMNIA Allergies Allergy/AdvReac Type Severity Reaction Status Date / Time cephalexin Allergy Severe rash Verified 08/13/18 06:34 diatrizoate meglumine Allergy Severe rash Verified 08/13/18 06:34 fluconazole Allergy Severe rash Verified 08/13/18 06:34 gadobenic acid Allergy Severe rash Verified 08/13/18 06:34 gadodiamide Allergy Severe rash Verified 08/13/18 06:34 gadoteridol Allergy Severe rash Verified 08/13/18 06:34 iodixanol Allergy Severe rash Verified 08/13/18 06:34 iohexol Allergy Severe rash Verified 08/13/18 06:34 pravastatin Allergy Severe rash Verified 08/13/18 06:34 erythromycin base AdvReac Urinary Verified 08/13/18 06:34 Freq (Inc/Dec) Home Medications Medication Instructions Recorded Confirmed Type acetaminophen-codeine 1 tab PO Q4HR PRN 05/26/18 08/13/18 History amlodipine 5 mg PO DAILY 05/26/18 08/13/18 History apixaban 5 mg PO BID 05/26/18 08/13/18 History clopidogrel 75 mg PO DAILY 05/26/18 08/13/18 History furosemide 20 mg PO Q2D 05/26/18 08/13/18 History hydralazine 10 mg PO Q8H 05/26/18 08/13/18 History hydrocodone-acetaminophen 1 tab PO Q4H PRN 05/26/18 08/13/18 History hydroxychloroquine 200 mg PO DAILY 05/26/18 08/13/18 History lanthanum 500 mg PO TID 05/26/18 08/13/18 History metoprolol tartrate 25 mg PO Q12H 05/26/18 08/13/18 History mirtazapine 30 mg PO HS 05/26/18 08/13/18 History sertraline 50 mg PO DAILY 05/26/18 08/13/18 History Exam Vital signs: Vital Signs 08/13/18 06:34 08/13/18 07:05 08/13/18 08:20 Temperature 97.5 F L 97.9 F Pulse Rate 72 76 Respiratory Rate 17 16 16 Blood Pressure 147/65 H 130/77 Pulse Oximetry 99 08/13/18 09:12 08/13/18 10:03 08/13/18 10:30 Temperature 97.7 F 97.8 F Pulse Rate 78 80 Respiratory Rate 16 17 Blood Pressure 142/67 H 138/82 Pulse Oximetry 98 97 99 08/13/18 11:00 08/13/18 11:50 Temperature 97.8 F Pulse Rate 76 Respiratory Rate 16 16 Blood Pressure 128/76 Pulse Oximetry 98 Intake & Output 08/12/18 08/13/18 08/13/18 18:59 06:59 18:59 Intake Total 1200 / 1200 Output Total 800 / 800 Balance 400 / 400 Weight 31.751 kg Intake: IV 1200 / 1200 Cipro 400 MG/200 ML Inj 400 mg 200 / 200 In 200 ml @ 200 mls/hr IV.SIG ONCE ONE Rx#:[id number] NS Inj 1,000 ML @ Wide Open IV. 1000 / 1000 SIG BOLUS ONE Rx#:[id number] Output: Urine 800 / 800 Other: # Voids 2 Narrative: GENERAL: Awake alert and oriented 3 talkative and cooperative very thin and cachectic appearing female SKIN: Warm and dry. Right lower extremity wound with some drainage right hip and right foot ankle area HEAD: Atraumatic. Normocephalic. EYES: Pupils equal and round. No scleral icterus. No injection or drainage. ENT: No nasal bleeding or discharge. Mucous membranes pink and moist. NECK: Trachea midline. No JVD. CARDIOVASCULAR: Regular rate and rhythm. S1-S2 no S3 or S4 RESPIRATORY: No accessory muscle use. Clear to auscultation. Breath sounds equal bilaterally. GASTROINTESTINAL: Abdomen soft, non-tender, nondistended. Hepatic and splenic margins not palpable. MUSCULOSKELETAL: Extremities without clubbing, cyanosis, or edema. No obvious deformities. Left [id number] amputation-right lower extremity with wound and right hip and wound on ankle-foot. Not able to bear weight on the right lower extremity NEUROLOGICAL: Awake and alert. No obvious cranial nerve deficits. Motor grossly within normal limits. 4 out of 5 muscle strength in the arms and 4/5 in right leg. Not able to bear weight on the right lower extremity at all. Normal speech. PSYCHIATRIC: INAppropriate mood and affect; insight and judgment ABnormal. Results - Labs CBC & Chem 7: 08/13/18 07:30 08/13/18 07:30 Labs: Short CBC 08/13/18 Range/Units 07:30 WBC 9.0 (4.0-11.0) th/mm3 Hgb 10.5 L (11.6-15.3) gm/dL Hct 33.1 L (35.0-46.0) % Plt Count 424 (150-450) th/mm3 BMP 08/13/18 07:30 Sodium 132 L Potassium 4.3 Chloride 104 Carbon Dioxide 16.4 L BUN 74 H Creatinine 2.50 H Calcium 9.3 Cardiac Enzymes 08/13/18 Range/Units 12:49 Total Creatine Kinase 42 (26-192) U/L Troponin I 0.02 (0.02-0.05) ng/mL Liver Function 08/13/18 Range/Units 07:30 Total Bilirubin 0.2 (0.2-1.0) mg/dL AST 15 (15-37) U/L ALT 12 (10-53) U/L Alkaline Phosphatase 117 (45-117) U/L Albumin 2.6 L (3.4-5.0) g/dL Urine 08/13/18 Range/Units 08:51 Urine Color Yellow (Yellw/Straw) Urine Clarity Cloudy H (Clear) Urine pH 6.0 (5.0-8.5) Ur Specific [place] 1.008 (1.002-1.035) Urine Protein 100 H (Neg-Trace) mg/dL Urine Glucose (UA) Negative (Negative) mg/dL - Imaging Impressions Chest X-Ray 08/13/18 07:10 CONCLUSION: Chronic interstitial changes and pleural calcifications similar to previous exam. Caprini VTE Risk Assessment Caprini VTE Risk Assessment: Moderate/High Risk (score >= 2) Caprini Risk Assessment Model: Point Value = 1 Point Value = 2 Point Value = 3 Point Value = 5 Age 41-60 Minor surgery BMI > 25 kg/m2 Swollen legs Varicose veins or History of unexplained or recurrent spontaneous Oral contraceptives or hormone replacement Sepsis (< 1 month) Serious lung disease, including pneumonia (< 1 month) Abnormal pulmonary function Acute myocardial infarction Congestive heart failure (< 1 month) History of inflammatory bowel disease Medical patient at bed rest Age 61-74 Arthroscopic surgery Major open surgery (> 45 min) Laparoscopic surgery (> 45 min) Malignancy Confined to bed (> 72 hours) Immobilizing plaster cast Central venous access Age >= 75 History of VTE Family history of VTE Factor V Leiden Prothrombin [id number] Lupus anticoagulant Anticardiolipin antibodies Elevated serum homocysteine Heparin-induced thrombocytopenia Other congenital or acquired thrombophilia Stroke (< 1 month) Elective arthroplasty Hip, pelvis, or leg fracture Acute spinal cord injury (< 1 month) Prophylaxis Regimen: Total Risk Factor Score Risk Level Prophylaxis Regimen 0-1 Low Early ambulation 2 Moderate Order ONE of the following: *Sequential Compression Device (SCD) *Heparin 5000 units SQ BID 3-4 Higher Order ONE of the following medications: *Heparin 5000 units SQ TID *Enoxaparin/Lovenox 40 mg SQ daily (WT < 150 kg, CrCl > 30 mL/min) *Enoxaparin/Lovenox 30 mg SQ daily (WT < 150 kg, CrCl > 10-29 mL/min) *Enoxaparin/Lovenox 30 mg SQ BID (WT < 150 kg, CrCl > 30 mL/min) AND/OR *Sequential Compression Device (SCD) 5 or more Highest Order ONE of the following medications: *Heparin 5000 units SQ TID (Preferred with Epidurals) *Enoxaparin/Lovenox 40 mg SQ daily (WT < 150 kg, CrCl > 30 mL/min) *Enoxaparin/Lovenox 30 mg SQ daily (WT < 150 kg, CrCl > 10-29 mL/min) *Enoxaparin/Lovenox 30 mg SQ BID (WT < 150 kg, CrCl > 30 mL/min) AND *Sequential Compression Device (SCD) Assessment and Plan - Plan Urinary tract infection will continue on Cipro 200 mg IV twice daily Renal insufficiency/stage III chronic kidney disease/dehydration continue on fluid rehydration with IV fluids Hypertension resume home medications Depression continue on her sertraline Failure to thrive/protein calorie malnourishment severe continue on mirtazapine to help with appetite stimulation History of coronary artery disease continue on Plavix and the apixaban Chronic pain on chronic acetaminophen/codeine and hydrocodone acetaminophen Coronary artery disease continue on Plavix and APIXABAN Noncompliance recommend patient continue on medications Tobacco abuse recommend smoking cessation Alcohol abuse recommend alcohol cessation Chronic wound to right hip and right foot/ankle consult Dr. Keene Code Status: Full code Discussed Condition With: RN and patient and family and case management Discharge Planning: Pending improvement H&P: Quality - VTE Deep Vein Thrombosis/Pulmonary Embolism Present on Admission: No
[2018-08-13 20:40] LABS: Troponin I 0.02 ng/mL (0.02-0.05)
[2018-08-13] MEDS: Ciprofloxacin 200 MG/100 ML 200 MG/100 ML PIGGYBACK IV.SIG SCH (21:18)
[2018-08-13 21:19] LABS: ABG Base Excess -13.2 mmol/L (-2-2); ABG PCO2 33 mmHg (38-42); ABG PO2 142 mmHg (61-120)
[2018-08-13] MEDS: Morphine Sulfate Inj 2 MG/ML Vial IV.PUSH PRN (21:28)
[2018-08-13] MEDS: Senna/Docusate Sodium 8.6/50 MG Tablet PO SCH (21:31)
[2018-08-13] MEDS: Mirtazapine 15 MG Tablet PO SCH (21:31)
[2018-08-13] MEDS: SODIUM BICARBONATE IV.CONT SCH (23:33)
[2018-08-13] MEDS: SOD CHLORIDE 0.9% IV.CONT SCH (23:33)
--- NOTE | 2018-08-14 01:03 | XR ---
EXAM DATE: 08/14/2018 12:58 AM EDT AGE/SEX: 73 years / Female INDICATIONS: Short of breath. CLINICAL DATA: This is the patient's subsequent encounter. Patient reports that signs and symptoms h ave been present for 2 days and indicates a pain score of 0/10. MEDICAL/SURGICAL HISTORY: None. . Left BKA. COMPARISON: C, CHEST 1V SINGLE AP, 08/13/2018. . FINDINGS: Slight interval increase in patchy bilateral interstitial prominence. Slight blunting of the left cos to phrenic angle which may indicate small effusion. Lateral left chest pleural calcifications. Rib de formities noted. Cardiac contours are unchanged.. CONCLUSION: Slight interval worsening in aeration. Electronically signed by: Chaim Bonilla MD 08/14/2018 1:02 AM EDT
[2018-08-14 01:11] LABS: ABG Base Excess -13.7 mmol/L (-2-2); ABG PCO2 35 mmHg (38-42); ABG PO2 143 mmHg (61-120)
[2018-08-14] MEDS ORDERED: Sodium Bicarbonate 8.4% Inj 50 MEQ/50 ML Syringe IV.PUSH ONE (01:16)
[2018-08-14] MEDS: Morphine Sulfate Inj 2 MG/ML Vial IV.PUSH PRN (02:46)
[2018-08-14] MEDS: hydrALAZINE 10 MG Tablet PO SCH ×3 (02:47→21:05)
[2018-08-14 08:09] LABS: Baso # (Auto) 0.1 th/mm3 (0.0-0.2); Eos # (Auto) 0.1 th/mm3 (0.0-0.4); Eos % (Auto) 1.5 % (0.0-4.0); Hematocrit 29.2 % (35.0-46.0); Hemoglobin 9.6 gm/dL (11.6-15.3); Lymph # (Auto) 0.7 th/mm3 (1.0-4.8); Mean Corpuscular HGB Conc 32.9 % (32.0-36.0); Mean Corpuscular Hemoglobin 29.4 pg (27.0-34.0); Mean Corpuscular Volume 89.1 fL (80.0-100.0); Mean Platelet Volume 6.7 fL (7.0-11.0); Mono # (Auto) 0.8 th/mm3 (0.0-0.9); Mono % (Auto) 7.9 % (0.0-8.0); Neut % (Auto) 82.6 % (16.0-70.0); Platelet Count 436 th/mm3 (150-450); Red Blood Count 3.28 mil/mm3 (4.00-5.30); Red Cell Distribution Width 17.3 % (11.6-17.2); White Blood Count 9.7 th/mm3 (4.0-11.0)
[2018-08-14 08:29] LABS: INR 1.3 Ratio; Prothrombin Time 12.7 sec (9.8-11.6)
[2018-08-14 09:00] LABS: Alanine Aminotransferase 10 U/L (10-53); Albumin 2.1 g/dL (3.4-5.0); Alkaline Phosphatase 98 U/L (45-117); Anion Gap 13 meq/L (5-15); Aspartate Aminotransferase 14 U/L (15-37); Blood Urea Nitrogen 53 mg/dL (7-18); Calcium 7.7 mg/dL (8.5-10.1); Carbon Dioxide 16.8 meq/L (21.0-32.0); Chloride 111 meq/L (98-107); Free T4 (Free Thyroxine) 0.71 ng/dL (0.76-1.46); Glomerular Filtration Rate 24 mL/min (>89); Magnesium 1.9 mg/dL (1.5-2.5); Potassium 3.5 meq/L (3.5-5.1); Sodium 141 meq/L (136-145)
[2018-08-14 09:16] LABS: Glucose,Random 41 mg/dL (74-106)
[2018-08-14] MEDS: amLODIPine 5 MG Tablet PO SCH (09:16)
[2018-08-14] MEDS: Sertraline 50 MG Tablet PO SCH (09:16)
[2018-08-14] MEDS: Furosemide 20 MG Tablet PO SCH (09:16)
[2018-08-14] MEDS: Senna/Docusate Sodium 8.6/50 MG Tablet PO SCH ×2 (09:17→21:05)
[2018-08-14] MEDS: Acetaminophen/Codeine 300/30 MG Tablet PO PRN ×2 (09:17→16:39)
[2018-08-14] MEDS: Hydroxychloroquine 200 MG Tablet PO SCH (09:17)
[2018-08-14] MEDS: SOD CHLORIDE 0.9% IV.CONT SCH ×2 (10:05→21:02)
[2018-08-14] MEDS: SODIUM BICARBONATE IV.CONT SCH ×2 (10:05→21:02)
[2018-08-14 10:27] LABS: Hemoglobin A1c 4.6 % (4.3-6.0)
[2018-08-14] MEDS: Ciprofloxacin 200 MG/100 ML 200 MG/100 ML PIGGYBACK IV.SIG SCH ×2 (10:53→22:45)
[2018-08-14] MEDS: Metoprolol Tartrate 25 MG Tablet PO SCH ×2 (10:54→23:24)
--- NOTE | 2018-08-14 11:12 | P.CONWOU ---
History of Present Illness Service: 08/14/18 Consult date: 08/14/18 Requesting Physician: Hector Rivers Reason for Consult: Heel ulcer and Right hip ulcer Primary Care Provider: UNKNOWN Family Provider: Malcolm Gay MD Chief Complaint: DIZZINESS PMFSH - History History Provided By: Patient, Family Member - Medical History Medical History: Medical History (Last Reviewed 08/14/18 @ 08:17 by Candis Andrea) Anxiety Chronic kidney disease, stage III (moderate) Coronary artery disease Failure to thrive HBP (high blood pressure) Noncompliance Peripheral vascular disease Peripheral vascular disease of lower extremity with ulceration Protein-calorie malnutrition, severe - Surgical History Surgical History: Surgical History (Last Reviewed 08/14/18 @ 08:17 by Candis Andrea) History of amputation of extremity Hx of heart artery stent - Family History Family History: Family History (Last Updated 08/13/18 @ 15:01 by Hector Rivers, DO) Other Family history of hypertension - Tobacco History Second Hand Smoke Exposure: No Smoking Status: Former smoker Tobacco Type: Cigarettes, Pipe, Cigars - Alcohol History How Often Do You Have a Drink Containing Alcohol: 4 or more times a week - Substance Use History Substance History: No History of Abuse - Travel History History of Recent Travel: No Recent Travel in the [place] Within the Last 8 Weeks: No Recent Travel Out of the Country Within the Last 8 Weeks: No - Immunization History Tetanus Immunization: >5 Years Hx Influenza Vaccine This Season: No Medications and Allergies Active Medications: Active Medications Acetaminophen (Tylenol) 650 mg PO Q4H PRN PRN Reason: Temp > 100.4 Acetaminophen/Codeine Phosphate (Tylenol W/Cod #3) 1 tab PO Q4HR PRN PRN Reason: PAIN SCALE 1 TO 10 Last Admin: 08/14/18 09:17 Dose: 1 tab Al Hydroxide/Mg Hydroxide (Milk Of Magnesia Liq) 30 ml PO Q12H PRN PRN Reason: Mild Constipation Amlodipine Besylate (Norvasc) 5 mg PO DAILY [facility] Last Admin: 08/14/18 09:16 Dose: 5 mg Apixaban (Eliquis) 5 mg PO BID [facility] Last Admin: 08/14/18 09:16 Dose: 5 mg Bisacodyl (Dulcolax Supp) 10 mg RECTAL DAILY PRN PRN Reason: SEVERE CONSITIPATION Clopidogrel Bisulfate (Plavix) 75 mg PO DAILY [facility] Last Admin: 08/14/18 09:16 Dose: 75 mg Furosemide (Lasix) 20 mg PO Q2D [facility] Last Admin: 08/14/18 09:16 Dose: 20 mg Hydralazine HCl (Apresoline) 10 mg PO Q8H [facility] Last Admin: 08/14/18 10:54 Dose: 10 mg Hydroxychloroquine Sulfate (Plaquenil) 200 mg PO DAILY [facility] Last Admin: 08/14/18 09:17 Dose: 200 mg Ciprofloxacin/Dextrose (Cipro 200 Mg/100 Ml Inj) 200 mg in 100 mls @ 100 mls/ hr IV.SIG Q12H [facility] Last Admin: 08/14/18 10:53 Dose: 100 mls/hr Sodium Bicarbonate 25 meq/ (Sodium Chloride) 1,025 mls @ 100 mls/hr IV.CONT .[id number] [facility] Last Admin: 08/14/18 10:05 Dose: Not Given Lactulose (Lactulose Liq) 30 ml PO DAILY PRN PRN Reason: SEVERE CONSITIPATION Lanthanum Carbonate (Fosrenol Chewable) 500 mg PO TID [facility] Last Admin: 08/14/18 09:17 Dose: Not Given Meclizine HCl (Antivert) 25 mg PO Q6H PRN PRN Reason: NAUSEA OR DIZZINESS Metoprolol Tartrate (Lopressor) 25 mg PO Q12H [facility] Last Admin: 08/14/18 10:54 Dose: 25 mg Mirtazapine (Remeron) 30 mg PO HS [facility] Last Admin: 08/13/18 21:31 Dose: 30 mg Morphine Sulfate (Morphine Inj) 4 mg IV.PUSH Q3H PRN PRN Reason: PAIN 6-10;IF UNABLE TO TAKE PO Last Admin: 08/13/18 15:22 Dose: 4 mg Morphine Sulfate (Morphine Inj) 2 mg IV.PUSH Q3H PRN PRN Reason: PAIN 3-5; IF UABLE TO TAKE PO Last Admin: 08/14/18 02:46 Dose: 2 mg Naloxone HCl (Narcan Inj) 0.4 mg IV.PUSH UNSCH PRN PRN Reason: SEE LABEL COMMENTS Ondansetron HCl (Zofran Inj) 4 mg IV.PUSH Q6H PRN PRN Reason: NAUSEA OR VOMITING Last Admin: 08/13/18 13:59 Dose: 4 mg Senna/Docusate Sodium (Netta-Colace) 1 tab PO BID [facility] Last Admin: 08/14/18 09:17 Dose: 1 tab Sennosides (Senokot) 17.2 mg PO Q12H PRN PRN Reason: Moderate Constipation Sertraline HCl (Zoloft) 50 mg PO DAILY [facility] Last Admin: 08/14/18 09:16 Dose: 50 mg Zolpidem Tartrate (Ambien) 5 mg PO HS PRN PRN Reason: INSOMNIA Allergies Allergy/AdvReac Type Severity Reaction Status Date / Time cephalexin Allergy Severe rash Verified 08/13/18 06:34 diatrizoate meglumine Allergy Severe rash Verified 08/13/18 06:34 fluconazole Allergy Severe rash Verified 08/13/18 06:34 gadobenic acid Allergy Severe rash Verified 08/13/18 06:34 gadodiamide Allergy Severe rash Verified 08/13/18 06:34 gadoteridol Allergy Severe rash Verified 08/13/18 06:34 iodixanol Allergy Severe rash Verified 08/13/18 06:34 iohexol Allergy Severe rash Verified 08/13/18 06:34 pravastatin Allergy Severe rash Verified 08/13/18 06:34 erythromycin base AdvReac Urinary Verified 08/13/18 06:34 Freq (Inc/Dec) Home Medications Medication Instructions Recorded Confirmed Type acetaminophen-codeine 1 tab PO Q4HR PRN 05/26/18 08/13/18 History amlodipine 5 mg PO DAILY 05/26/18 08/13/18 History apixaban 5 mg PO BID 05/26/18 08/13/18 History clopidogrel 75 mg PO DAILY 05/26/18 08/13/18 History furosemide 20 mg PO Q2D 05/26/18 08/13/18 History hydralazine 10 mg PO Q8H 05/26/18 08/13/18 History hydrocodone-acetaminophen 1 tab PO Q4H PRN 05/26/18 08/13/18 History hydroxychloroquine 200 mg PO DAILY 05/26/18 08/13/18 History lanthanum 500 mg PO TID 05/26/18 08/13/18 History metoprolol tartrate 25 mg PO Q12H 05/26/18 08/13/18 History mirtazapine 30 mg PO HS 05/26/18 08/13/18 History sertraline 50 mg PO DAILY 05/26/18 08/13/18 History Physical Exam Vital signs: Vital Signs 08/13/18 11:50 08/13/18 16:00 08/13/18 18:30 Temperature 97.8 F 97.8 F Pulse Rate 76 60 Respiratory Rate 16 12 Blood Pressure 128/76 106/56 L 133/61 Pulse Oximetry 98 100 08/13/18 18:40 08/13/18 20:00 08/13/18 20:21 Temperature 97.9 F Pulse Rate 56 L Respiratory Rate 16 Blood Pressure 129/56 L Pulse Oximetry 100 87 L 91 L 08/13/18 21:31 08/14/18 00:00 08/14/18 01:44 Temperature 97.7 F Pulse Rate 65 Respiratory Rate 16 18 Blood Pressure 144/64 H Pulse Oximetry 86 L 95 08/14/18 02:02 08/14/18 02:51 08/14/18 02:56 Temperature 97.8 F Pulse Rate 70 75 Respiratory Rate 17 17 Blood Pressure 157/70 H Pulse Oximetry 94 L 08/14/18 03:39 08/14/18 08:00 Temperature 97.8 F 98.3 F Pulse Rate 66 71 Respiratory Rate 17 20 Blood Pressure 160/68 H 149/66 H Pulse Oximetry 93 L 98 Intake & Output 08/13/18 08/14/18 08/14/18 18:59 06:59 18:59 Intake Total 1200 / 1200 1100 / 1100 Output Total 800 / 800 650 / 650 Balance 400 / 400 450 / 450 Weight 35.6 kg Intake: IV 1200 / 1200 1100 / 1100 NS Inj 1,000 ML @ 100 mls/hr IV 1000 / 1000 .CONT .Q10H [facility] Rx#:[id number] Cipro 200 MG/100 ML Inj 200 mg 100 / 100 In 100 ml @ 100 mls/hr IV.SIG Q12H [facility] Rx#:[id number] Cipro 400 MG/200 ML Inj 400 mg 200 / 200 In 200 ml @ 200 mls/hr IV.SIG ONCE ONE Rx#:[id number] NS Inj 1,000 ML @ Wide Open IV. 1000 / 1000 SIG BOLUS ONE Rx#:[id number] Output: Urine 800 / 800 650 / 650 Other: # Voids 1 5 Date of Last Bowel Movement 08/13/18 Wound/Pressure Injury - Patient Status Premedicated for Pain Prior to Dressing Change: No - Wound Right Lower Foot Wound Assessment: Admission Wound Type: Pressure Injury Wound Bed Appearance: [place] Drainage Description: Serous Drainage Amount: Minimal Dressing Status: Dry & Intact Wound Packing Type: Gauze Roll Primary Dressing: Absorbant Pad Right Hip Wound Assessment: Admission Wound Type: Puncture Wound Bed Appearance: [place] Surrounding Tissue Appearance: [place] Drainage Description: Serosanguinous Drainage Amount: Minimal Drainage Odor: No Odor Dressing Status: Dry & Intact Incision - Patient Status Premedicated for Pain Prior to Dressing Change: No Assessment and Plan - Assessment (1) Ulcer of heel Code(s): L97.409 - Non-pressure chronic ulcer of unspecified heel and midfoot with unspecified severity Status: Acute (2) Pressure ulcer, hip Code(s): L89.209 - Pressure ulcer of unspecified hip, unspecified stage Status : Acute (3) Dehydration Code(s): E86.0 - Dehydration Status: Acute (4) Severe peripheral arterial disease Code(s): I73.9 - Peripheral vascular disease, unspecified Status: Acute
--- NOTE | 2018-08-14 12:21 | P.PNIM ---
Subjective Interval history: Is a 73-year-old female with history of chronic kidney disease status post left [id number] amputation and chronic wounds to the right ankle and right hip brought in by family due to weakness and dizziness for the past 36 hours. Patient reports decreased urination. Denies any diarrhea she denies chills. Denies any nausea vomiting but is now having some nausea vomiting in the room. Denies any pain has felt fatigued. States that her right hip wound started draining more the last couple days as well as her right ankle area. Patient HAS seen podiatry previously as well as Dr. Keene Patient was noted to have a urinary tract infection is also having nausea and vomiting We will continue to follow here. We will consult Dr. Keene 08-[address] KEENE DW PT AND RN AND FAMILY AND CM AND DELIVERY AIDE WILL CONSULT VASCULAR SURGERY TODAY FOR SEVERE PVOD OF RIGHT LOWER EXTREMITY AM LABS WOUNDS VISUALIZED- LARGE HEEL WOUND RIGHT LE Physical Exam Vital signs: Vital Signs 08/13/18 16:00 08/13/18 18:30 08/13/18 18:40 Temperature 97.8 F Pulse Rate 60 Respiratory Rate 12 Blood Pressure 106/56 L 133/61 Pulse Oximetry 100 100 08/13/18 20:00 08/13/18 20:21 08/13/18 21:31 Temperature 97.9 F Pulse Rate 56 L Respiratory Rate 16 16 Blood Pressure 129/56 L Pulse Oximetry 87 L 91 L 08/14/18 00:00 08/14/18 01:44 08/14/18 02:02 Temperature 97.7 F Pulse Rate 65 70 Respiratory Rate 18 Blood Pressure 144/64 H Pulse Oximetry 86 L 95 08/14/18 02:51 08/14/18 02:56 08/14/18 03:39 Temperature 97.8 F 97.8 F Pulse Rate 75 66 Respiratory Rate 17 17 17 Blood Pressure 157/70 H 160/68 H Pulse Oximetry 94 L 93 L 08/14/18 08:00 Temperature 98.3 F Pulse Rate 71 Respiratory Rate 20 Blood Pressure 149/66 H Pulse Oximetry 98 Intake & Output 08/13/18 08/14/18 08/14/18 18:59 06:59 18:59 Intake Total 1200 / 1200 1100 / 1100 Output Total 800 / 800 650 / 650 Balance 400 / 400 450 / 450 Weight 35.6 kg Intake: IV 1200 / 1200 1100 / 1100 NS Inj 1,000 ML @ 100 mls/hr IV 1000 / 1000 .CONT .Q10H [facility] Rx#:[id number] Cipro 200 MG/100 ML Inj 200 mg 100 / 100 In 100 ml @ 100 mls/hr IV.SIG Q12H [facility] Rx#:[id number] Cipro 400 MG/200 ML Inj 400 mg 200 / 200 In 200 ml @ 200 mls/hr IV.SIG ONCE ONE Rx#:[id number] NS Inj 1,000 ML @ Wide Open IV. 1000 / 1000 SIG BOLUS ONE Rx#:[id number] Output: Urine 800 / 800 650 / 650 Other: # Voids 1 5 Date of Last Bowel Movement 08/13/18 Narrative: GENERAL: Awake alert and oriented 3 talkative and cooperative very thin and cachectic appearing female SKIN: Warm and dry. Right lower extremity wound with some drainage right hip and right foot ankle area- RIGHT HEEL LARGE NECROTIC WOUND HEAD: Atraumatic. Normocephalic. EYES: Pupils equal and round. No scleral icterus. No injection or drainage. ENT: No nasal bleeding or discharge. Mucous membranes pink and moist. NECK: Trachea midline. No JVD. CARDIOVASCULAR: Regular rate and rhythm. S1-S2 no S3 or S4 RESPIRATORY: No accessory muscle use. Clear to auscultation. Breath sounds equal bilaterally. GASTROINTESTINAL: Abdomen soft, non-tender, nondistended. Hepatic and splenic margins not palpable. MUSCULOSKELETAL: Extremities without clubbing, cyanosis, or edema. No obvious deformities. Left [id number] amputation-right lower extremity with wound and right hip and wound on ankle-foot. Not able to bear weight on the right lower extremity--LARGE WOUND ON HEEL- NECROTIC NEUROLOGICAL: Awake and alert. No obvious cranial nerve deficits. Motor grossly within normal limits. 4 out of 5 muscle strength in the arms and 4/5 in right leg. Not able to bear weight on the right lower extremity at all. Normal speech. PSYCHIATRIC: Appropriate mood and affect; insight and judgment ABnormal. Results - Labs CBC & Chem 7: 08/14/18 07:34 08/14/18 07:34 Laboratory Results - last 24 hr 08/13/18 08/13/18 08/13/18 12:49 19:45 21:06 WBC RBC Hgb Hct MCV MCH MCHC RDW Plt Count MPV Neut % (Auto) Lymph % (Auto) [place] % (Auto) Eos % (Auto) Baso % (Auto) Neut # (Auto) Lymph # (Auto) [place] # (Auto) Eos # (Auto) Baso # (Auto) WBC Differential Differential Comment PT INR Puncture Site Right brachial Patient Temperature 98.6 O2 Saturation 97 ABG pH 7.22 L* ABG pCO2 33 L ABG pO2 142 H ABG HCO3 13 L* ABG O2 Content 12.7 ABG Base Excess -13.2 L ABG Methemoglobin 1.1 Emre Test Present Hemoglobin 9.1 L Carboxyhemoglobin 1.0 O2 Delivery Device Nasal cannula Liter Flow 4.00 Inspired O2 21 Critical Value Yes Sodium Potassium Chloride Carbon Dioxide Anion Gap BUN Creatinine Estimated GFR POC Glucose Random Glucose Hemoglobin A1c Calcium Magnesium Total Bilirubin AST ALT Alkaline Phosphatase Total Creatine Kinase 42 44 Troponin I 0.02 0.02 Total Protein Albumin TSH Free T4 08/14/18 08/14/18 08/14/18 00:55 07:34 07:34 WBC 9.7 RBC 3.28 L Hgb 9.6 L Hct 29.2 L MCV 89.1 MCH 29.4 MCHC 32.9 RDW 17.3 H Plt Count 436 MPV 6.7 L Neut % (Auto) 82.6 H Lymph % (Auto) 7.0 L [place] % (Auto) 7.9 Eos % (Auto) 1.5 Baso % (Auto) 1.0 Neut # (Auto) 8.0 H Lymph # (Auto) 0.7 L [place] # (Auto) 0.8 Eos # (Auto) 0.1 Baso # (Auto) 0.1 WBC Differential . Differential Comment Auto diff final PT 12.7 H INR 1.3 Puncture Site Left brachial Patient Temperature 98.6 O2 Saturation 97 ABG pH 7.19 L* ABG pCO2 35 L ABG pO2 143 H ABG HCO3 13 L* ABG O2 Content 12.9 ABG Base Excess -13.7 L ABG Methemoglobin 1.3 Emre Test Present Hemoglobin 9.3 L Carboxyhemoglobin 0.9 O2 Delivery Device Nasal cannula Liter Flow 4.00 Inspired O2 Critical Value Yes Sodium Potassium Chloride Carbon Dioxide Anion Gap BUN Creatinine Estimated GFR POC Glucose Random Glucose Hemoglobin A1c Calcium Magnesium Total Bilirubin AST ALT Alkaline Phosphatase Total Creatine Kinase Troponin I Total Protein Albumin TSH Free T4 08/14/18 08/14/18 08/14/18 07:34 07:34 09:23 WBC RBC Hgb Hct MCV MCH MCHC RDW Plt Count MPV Neut % (Auto) Lymph % (Auto) [place] % (Auto) Eos % (Auto) Baso % (Auto) Neut # (Auto) Lymph # (Auto) [place] # (Auto) Eos # (Auto) Baso # (Auto) WBC Differential Differential Comment PT INR Puncture Site Patient Temperature O2 Saturation ABG pH ABG pCO2 ABG pO2 ABG HCO3 ABG O2 Content ABG Base Excess ABG Methemoglobin Emre Test Hemoglobin Carboxyhemoglobin O2 Delivery Device Liter Flow Inspired O2 Critical Value Sodium 141 Potassium 3.5 D Chloride 111 H Carbon Dioxide 16.8 L Anion Gap 13 BUN 53 H Creatinine 2.05 H Estimated GFR 24 L POC Glucose 168 H Random Glucose 41 L* Hemoglobin A1c 4.6 Calcium 7.7 L D Magnesium 1.9 Total Bilirubin 0.2 AST 14 L ALT 10 Alkaline Phosphatase 98 Total Creatine Kinase Troponin I Total Protein 6.0 L D Albumin 2.1 L TSH 3.680 Free T4 0.71 L Microbiology 08/13/18 09:30 Blood - Peripheral Aerobic Blood Culture - Preliminary No growth in 1 day 08/13/18 09:30 Blood - Peripheral Anaerobic Blood Culture - Preliminary No growth in 1 day 08/13/18 09:11 Blood - Peripheral Aerobic Blood Culture - Preliminary No growth in 1 day 08/13/18 09:11 Blood - Peripheral Anaerobic Blood Culture - Preliminary No growth in 1 day 08/13/18 08:20 Wound - Hip Gram Stain - Final - Imaging Impressions Chest X-Ray 08/14/18 00:44 CONCLUSION: Slight interval worsening in aeration. Assessment and Plan - Plan Urinary tract infection will continue on Cipro 200 mg IV twice daily Renal insufficiency/stage III chronic kidney disease/dehydration continue on fluid rehydration with IV fluids Hypertension resume home medications Depression continue on her sertraline Failure to thrive/protein calorie malnourishment severe continue on mirtazapine to help with appetite stimulation History of coronary artery disease continue on Plavix and the apixaban Chronic pain on chronic acetaminophen/codeine and hydrocodone acetaminophen Coronary artery disease continue on Plavix and APIXABAN Noncompliance recommend patient continue on medications Tobacco abuse recommend smoking cessation Alcohol abuse recommend alcohol cessation Chronic wound to right hip and right foot/ankle consult Dr. Keene WILL CONSULT VASCULAR SURGERY REGARDING RIGHT LE HEEL WOUND AND SEVER PERIPHERAL VASCULAR DISEASE AM LABS Code Status: FULL CODE Discussed Condition With: RN AND PT AND CM AND DR KEENE AND FAMILY Discharge Planning: Pending improvement
[2018-08-14] MEDS ORDERED: Vancomycin Consult Pharmacy OTHER PRN (14:29)
[2018-08-14] MEDS ORDERED: Vancomycin Consult Pharmacy 1 EACH OTHER SCH (14:30)
--- NOTE | 2018-08-14 14:45 | P.CONVS ---
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 Pt and daughter reported that her R LE wounds were healing until a few days as they have worsened in appearance Review of Systems Constitutional: Reports fatigue, Reports weakness, Denies chills, Denies fever(s ) Cardiovascular: Denies chest pain Skin/Breast: Reports wounds (R hip/R Heel/R great toe) PMFSH - History History Provided By: Patient, Family Member - Medical History Medical History: Medical History (Last Reviewed 08/14/18 @ 14:35 by Ceci Baptiste) Anxiety Chronic kidney disease, stage III (moderate) Coronary artery disease Failure to thrive HBP (high blood pressure) Noncompliance Peripheral vascular disease Peripheral vascular disease of lower extremity with ulceration Protein-calorie malnutrition, severe - Surgical History Surgical History: Surgical History (Last Reviewed 08/14/18 @ 14:35 by Ceci Baptiste) History of amputation of extremity Hx of heart artery stent - Family History Family History: Family History (Last Reviewed 08/14/18 @ 14:35 by Ceci Baptiste) Other Family history of hypertension - Social History I have reviewed the patient's Social History: Yes - Tobacco History Second Hand Smoke Exposure: No Tobacco Use In Past 30 Days: No Smoking Status: Former smoker Tobacco Type: Cigarettes, Pipe, Cigars - Alcohol History How Often Do You Have a Drink Containing Alcohol: 4 or more times a week - Substance Use History Substance History: No History of Abuse - Travel History History of Recent Travel: No Recent Travel in the [place] Within the Last 8 Weeks: No Recent Travel Out of the Country Within the Last 8 Weeks: No - Immunization History Tetanus Immunization: >5 Years Hx Influenza Vaccine This Season: No Medications and Allergies Allergies Allergy/AdvReac Type Severity Reaction Status Date / Time cephalexin Allergy Severe rash Verified 08/13/18 06:34 diatrizoate meglumine Allergy Severe rash Verified 08/13/18 06:34 fluconazole Allergy Severe rash Verified 08/13/18 06:34 gadobenic acid Allergy Severe rash Verified 08/13/18 06:34 gadodiamide Allergy Severe rash Verified 08/13/18 06:34 gadoteridol Allergy Severe rash Verified 08/13/18 06:34 iodixanol Allergy Severe rash Verified 08/13/18 06:34 iohexol Allergy Severe rash Verified 08/13/18 06:34 pravastatin Allergy Severe rash Verified 08/13/18 06:34 erythromycin base AdvReac Urinary Verified 08/13/18 06:34 Freq (Inc/Dec) Home Medications Medication Instructions Recorded Confirmed Type acetaminophen-codeine 1 tab PO Q4HR PRN 05/26/18 08/13/18 History amlodipine 5 mg PO DAILY 05/26/18 08/13/18 History apixaban 5 mg PO BID 05/26/18 08/13/18 History clopidogrel 75 mg PO DAILY 05/26/18 08/13/18 History furosemide 20 mg PO Q2D 05/26/18 08/13/18 History hydralazine 10 mg PO Q8H 05/26/18 08/13/18 History hydrocodone-acetaminophen 1 tab PO Q4H PRN 05/26/18 08/13/18 History hydroxychloroquine 200 mg PO DAILY 05/26/18 08/13/18 History lanthanum 500 mg PO TID 05/26/18 08/13/18 History metoprolol tartrate 25 mg PO Q12H 05/26/18 08/13/18 History mirtazapine 30 mg PO HS 05/26/18 08/13/18 History sertraline 50 mg PO DAILY 05/26/18 08/13/18 History Active Medications: Active Medications Acetaminophen (Tylenol) 650 mg PO Q4H PRN PRN Reason: Temp > 100.4 Acetaminophen/Codeine Phosphate (Tylenol W/Cod #3) 1 tab PO Q4HR PRN PRN Reason: PAIN SCALE 1 TO 10 Last Admin: 08/14/18 09:17 Dose: 1 tab Al Hydroxide/Mg Hydroxide (Milk Of Magnamira Liq) 30 ml PO Q12H PRN PRN Reason: Mild Constipation Amlodipine Besylate (Norvasc) 5 mg PO DAILY [facility] Last Admin: 08/14/18 09:16 Dose: 5 mg Apixaban (Eliquis) 5 mg PO BID [facility] Last Admin: 08/14/18 09:16 Dose: 5 mg Bisacodyl (Dulcolax Supp) 10 mg RECTAL DAILY PRN PRN Reason: SEVERE CONSITIPATION Clopidogrel Bisulfate (Plavix) 75 mg PO DAILY [facility] Last Admin: 08/14/18 09:16 Dose: 75 mg Furosemide (Lasix) 20 mg PO Q2D [facility] Last Admin: 08/14/18 09:16 Dose: 20 mg Hydralazine HCl (Apresoline) 10 mg PO Q8H [facility] Last Admin: 08/14/18 10:54 Dose: 10 mg Hydroxychloroquine Sulfate (Plaquenil) 200 mg PO DAILY [facility] Last Admin: 08/14/18 09:17 Dose: 200 mg Ciprofloxacin/Dextrose (Cipro 200 Mg/100 Ml Inj) 200 mg in 100 mls @ 100 mls/ hr IV.SIG Q12H [facility] Last Infusion: 08/14/18 13:31 Dose: Infused Sodium Bicarbonate 25 meq/ (Sodium Chloride) 1,025 mls @ 100 mls/hr IV.CONT .[id number] [facility] Last Admin: 08/14/18 10:05 Dose: Not Given Lactulose (Lactulose Liq) 30 ml PO DAILY PRN PRN Reason: SEVERE CONSITIPATION Lanthanum Carbonate (Fosrenol Chewable) 500 mg PO TID [facility] Last Admin: 08/14/18 12:15 Dose: Not Given Meclizine HCl (Antivert) 25 mg PO Q6H PRN PRN Reason: NAUSEA OR DIZZINESS Metoprolol Tartrate (Lopressor) 25 mg PO Q12H [facility] Last Admin: 08/14/18 10:54 Dose: 25 mg Mirtazapine (Remeron) 30 mg PO HS [facility] Last Admin: 08/13/18 21:31 Dose: 30 mg Morphine Sulfate (Morphine Inj) 4 mg IV.PUSH Q3H PRN PRN Reason: PAIN 6-10;IF UNABLE TO TAKE PO Last Admin: 08/13/18 15:22 Dose: 4 mg Morphine Sulfate (Morphine Inj) 2 mg IV.PUSH Q3H PRN PRN Reason: PAIN 3-5; IF UABLE TO TAKE PO Last Admin: 08/14/18 02:46 Dose: 2 mg Naloxone HCl (Narcan Inj) 0.4 mg IV.PUSH UNSCH PRN PRN Reason: SEE LABEL COMMENTS Ondansetron HCl (Zofran Inj) 4 mg IV.PUSH Q6H PRN PRN Reason: NAUSEA OR VOMITING Last Admin: 08/13/18 13:59 Dose: 4 mg Senna/Docusate Sodium (Netta-Colace) 1 tab PO BID [facility] Last Admin: 08/14/18 09:17 Dose: 1 tab Sennosides (Senokot) 17.2 mg PO Q12H PRN PRN Reason: Moderate Constipation Sertraline HCl (Zoloft) 50 mg PO DAILY [facility] Last Admin: 08/14/18 09:16 Dose: 50 mg Zolpidem Tartrate (Ambien) 5 mg PO HS PRN PRN Reason: INSOMNIA Physical Exam Vital Signs / I&O: Vital Signs 08/13/18 16:00 08/13/18 18:30 08/13/18 18:40 Temperature 97.8 F Pulse Rate 60 Respiratory Rate 12 Blood Pressure 106/56 L 133/61 Pulse Oximetry 100 100 08/13/18 20:00 08/13/18 20:21 08/13/18 21:31 Temperature 97.9 F Pulse Rate 56 L Respiratory Rate 16 16 Blood Pressure 129/56 L Pulse Oximetry 87 L 91 L 08/14/18 00:00 08/14/18 01:44 08/14/18 02:02 Temperature 97.7 F Pulse Rate 65 70 Respiratory Rate 18 Blood Pressure 144/64 H Pulse Oximetry 86 L 95 08/14/18 02:51 08/14/18 02:56 08/14/18 03:39 Temperature 97.8 F 97.8 F Pulse Rate 75 66 Respiratory Rate 17 17 17 Blood Pressure 157/70 H 160/68 H Pulse Oximetry 94 L 93 L 08/14/18 08:00 08/14/18 12:00 Temperature 98.3 F 98.5 F Pulse Rate 71 74 Respiratory Rate 20 20 Blood Pressure 149/66 H 151/63 H Pulse Oximetry 98 94 L Intake & Output 08/13/18 08/14/18 08/14/18 18:59 06:59 18:59 Intake Total 1200 / 1200 1100 / 1100 100 / 100 Output Total 800 / 800 650 / 650 Balance 400 / 400 450 / 450 100 / 100 Weight 35.6 kg Intake: IV 1200 / 1200 1100 / 1100 100 / 100 NS Inj 1,000 ML @ 100 mls/hr IV 1000 / 1000 .CONT .Q10H [facility] Rx#:[id number] Cipro 200 MG/100 ML Inj 200 mg 100 / 100 100 / 100 In 100 ml @ 100 mls/hr IV.SIG Q12H [facility] Rx#:[id number] Cipro 400 MG/200 ML Inj 400 mg 200 / 200 In 200 ml @ 200 mls/hr IV.SIG ONCE ONE Rx#:[id number] NS Inj 1,000 ML @ Wide Open IV. 1000 / 1000 SIG BOLUS ONE Rx#:[id number] Output: Urine 800 / 800 650 / 650 Other: # Voids 1 5 Date of Last Bowel Movement 08/13/18 Neuro: Speech clear GCS 15 A&OX3 Heart: RRR Lungs: Even clear slightly diminished Vascular: L AKA R Non palpable DP/PT Discolored R LE w/ heel wound/ necrotic R great toe medial aspect R hip wound with white thick drainage, no odor or erythema netta wound Laboratory Results - last 24 hr 08/13/18 08/13/18 08/13/18 08:51 19:45 21:06 WBC RBC Hgb Hct MCV MCH MCHC RDW Plt Count MPV Neut % (Auto) Lymph % (Auto) [place] % (Auto) Eos % (Auto) Baso % (Auto) Neut # (Auto) Lymph # (Auto) [place] # (Auto) Eos # (Auto) Baso # (Auto) WBC Differential Differential Comment PT INR Puncture Site Right brachial Patient Temperature 98.6 O2 Saturation 97 ABG pH 7.22 L* ABG pCO2 33 L ABG pO2 142 H ABG HCO3 13 L* ABG O2 Content 12.7 ABG Base Excess -13.2 L ABG Methemoglobin 1.1 Emre Test Present Hemoglobin 9.1 L Carboxyhemoglobin 1.0 O2 Delivery Device Nasal cannula Liter Flow 4.00 Inspired O2 21 Critical Value Yes Sodium Potassium Chloride Carbon Dioxide Anion Gap BUN Creatinine Estimated GFR POC Glucose Random Glucose Hemoglobin A1c Calcium Magnesium Total Bilirubin AST ALT Alkaline Phosphatase Total Creatine Kinase 44 Troponin I 0.02 Total Protein Albumin TSH Free T4 Urine Color Yellow Urine Clarity Cloudy H Urine pH 6.0 Ur Specific [place] 1.008 Urine Protein 100 H Urine Glucose (UA) Negative Urine Ketones Negative Urine Occult Blood Small H Urine Nitrate Positive H Urine Bilirubin Negative Urine Urobilinogen Less than 2 Ur Leukocyte Esterase Large H Urine RBC 5 H Urine WBC Urine Bacteria Few H Micro UA Comment Culture indicated Urine Culture Comments Culture indicated 08/14/18 08/14/18 08/14/18 00:55 07:34 07:34 WBC 9.7 RBC 3.28 L Hgb 9.6 L Hct 29.2 L MCV 89.1 MCH 29.4 MCHC 32.9 RDW 17.3 H Plt Count 436 MPV 6.7 L Neut % (Auto) 82.6 H Lymph % (Auto) 7.0 L [place] % (Auto) 7.9 Eos % (Auto) 1.5 Baso % (Auto) 1.0 Neut # (Auto) 8.0 H Lymph # (Auto) 0.7 L [place] # (Auto) 0.8 Eos # (Auto) 0.1 Baso # (Auto) 0.1 WBC Differential . Differential Comment Auto diff final PT 12.7 H INR 1.3 Puncture Site Left brachial Patient Temperature 98.6 O2 Saturation 97 ABG pH 7.19 L* ABG pCO2 35 L ABG pO2 143 H ABG HCO3 13 L* ABG O2 Content 12.9 ABG Base Excess -13.7 L ABG Methemoglobin 1.3 Emre Test Present Hemoglobin 9.3 L Carboxyhemoglobin 0.9 O2 Delivery Device Nasal cannula Liter Flow 4.00 Inspired O2 Critical Value Yes Sodium Potassium Chloride Carbon Dioxide Anion Gap BUN Creatinine Estimated GFR POC Glucose Random Glucose Hemoglobin A1c Calcium Magnesium Total Bilirubin AST ALT Alkaline Phosphatase Total Creatine Kinase Troponin I Total Protein Albumin TSH Free T4 Urine Color Urine Clarity Urine pH Ur Specific [place] Urine Protein Urine Glucose (UA) Urine Ketones Urine Occult Blood Urine Nitrate Urine Bilirubin Urine Urobilinogen Ur Leukocyte Esterase Urine RBC Urine WBC Urine Bacteria Micro UA Comment Urine Culture Comments 08/14/18 08/14/18 08/14/18 07:34 07:34 09:23 WBC RBC Hgb Hct MCV MCH MCHC RDW Plt Count MPV Neut % (Auto) Lymph % (Auto) [place] % (Auto) Eos % (Auto) Baso % (Auto) Neut # (Auto) Lymph # (Auto) [place] # (Auto) Eos # (Auto) Baso # (Auto) WBC Differential Differential Comment PT INR Puncture Site Patient Temperature O2 Saturation ABG pH ABG pCO2 ABG pO2 ABG HCO3 ABG O2 Content ABG Base Excess ABG Methemoglobin Emre Test Hemoglobin Carboxyhemoglobin O2 Delivery Device Liter Flow Inspired O2 Critical Value Sodium 141 Potassium 3.5 D Chloride 111 H Carbon Dioxide 16.8 L Anion Gap 13 BUN 53 H Creatinine 2.05 H Estimated GFR 24 L POC Glucose 168 H Random Glucose 41 L* Hemoglobin A1c 4.6 Calcium 7.7 L D Magnesium 1.9 Total Bilirubin 0.2 AST 14 L ALT 10 Alkaline Phosphatase 98 Total Creatine Kinase Troponin I Total Protein 6.0 L D Albumin 2.1 L TSH 3.680 Free T4 0.71 L Urine Color Urine Clarity Urine pH Ur Specific [place] Urine Protein Urine Glucose (UA) Urine Ketones Urine Occult Blood Urine Nitrate Urine Bilirubin Urine Urobilinogen Ur Leukocyte Esterase Urine RBC Urine WBC Urine Bacteria Micro UA Comment Urine Culture Comments Microbiology 08/13/18 08:51 Urine Culture - Preliminary Clean Catch Urine S. aureus MRSA 08/13/18 09:30 Aerobic Blood Culture - Preliminary Blood - Peripheral No growth in 1 day Anaerobic Blood Culture - Preliminary No growth in 1 day 08/13/18 09:11 Aerobic Blood Culture - Preliminary Blood - Peripheral No growth in 1 day Anaerobic Blood Culture - Preliminary No growth in 1 day 08/13/18 08:20 Gram Stain - Final Wound - Hip Impressions Chest X-Ray 08/13/18 07:10 CONCLUSION: Chronic interstitial changes and pleural calcifications similar to previous exam. Chest X-Ray 08/14/18 00:44 CONCLUSION: Slight interval worsening in aeration. Assessment and Plan - Plan 73/F with a PMH of severe PAD Pt underwent a L AKA on 05/22/18 Pt w/ Severe R LE arterial occlusive disease with worsening tissue loss Unfortunately R LE is not limb salvageable Plan Discussed R LE AKA, when pt is ready Recommend continued medical management (anticoagulation/Statin therapy) Continue pain control Continue wound care per the wound care team Ceci Baptiste NP [facility] [phone] - Attending Attestation Agree with above; seen and examined/ Pt well known to me. s/p L AKA. Has unreconstructable disease and needs R AKA. Nonambulatory. Offered AKA and discussed with patient and family. Jack Serrano MD FACS [employer] baggage security checker [facility] - Heart and Vascular Surgery at [facility] [phone]
[2018-08-14] MEDS ORDERED: Vancomycin Inj 1,000 MG in Sodium Chlor 0.9% Inj 250 ML IV.SIG ONE (15:00)
--- NOTE | 2018-08-14 19:28 | P.CONID ---
History of Present Illness Service: ID Consult date: 08/14/18 Requesting Physician: Hector Rivers Reason for Consult: MRSA UTI Primary Care Provider: UNKNOWN Family Provider: Malcolm Gay MD Chief Complaint: DIZZINESS History of Present Illness: Pt is a very ppoor historian 73 yo female with PVD sp Dmitriy GUPTA in April 28 vascular compromise, presnts with non haling R heel ulcer and R hip ulcer . Culture + for MRSA She prewsenrts with waekness, dizziness afebrile Prominent weightloss, 2/2 poor appetite and ? postprandial pain in epigastirum She weights 35 kg Pt is afebrile, nl WBC Blood clx NGTD. Urine clx P, UA abnormal cw UTI (innumerable WBC, + LE) Her urine clx + for MRSA She is on vanco, cipro Review of Systems All other systems reviewed negative except as stated in HPI PMFSH - History History Provided By: Patient, Family Member - Medical History Medical History: Medical History (Last Reviewed 08/15/18 @ 00:15 by Kajal Felipe MD) Anxiety Chronic kidney disease, stage III (moderate) Coronary artery disease Failure to thrive HBP (high blood pressure) Noncompliance Peripheral vascular disease Peripheral vascular disease of lower extremity with ulceration Protein-calorie malnutrition, severe - Surgical History Surgical History: Surgical History (Last Reviewed 08/15/18 @ 00:15 by Kajal Felipe MD) History of amputation of extremity Hx of heart artery stent - Family History Family History: Family History (Last Reviewed 08/15/18 @ 00:15 by Kajal Felipe MD) Other Family history of hypertension - Social History I have reviewed the patient's Social History: Yes - Tobacco History Second Hand Smoke Exposure: No Tobacco Use In Past 30 Days: No Smoking Status: Former smoker Tobacco Type: Cigarettes, Pipe, Cigars - Alcohol History How Often Do You Have a Drink Containing Alcohol: 4 or more times a week - Substance Use History Substance History: No History of Abuse - Travel History History of Recent Travel: No Recent Travel in the [place] Within the Last 8 Weeks: No Recent Travel Out of the Country Within the Last 8 Weeks: No - Immunization History Tetanus Immunization: >5 Years Hx Influenza Vaccine This Season: No Medications and Allergies Active Medications: Active Medications Acetaminophen (Tylenol) 650 mg PO Q4H PRN PRN Reason: Temp > 100.4 Acetaminophen/Codeine Phosphate (Tylenol W/Cod #3) 1 tab PO Q4HR PRN PRN Reason: PAIN SCALE 1 TO 10 Last Admin: 08/14/18 16:39 Dose: 1 tab Al Hydroxide/Mg Hydroxide (Milk Of Magnesia Liq) 30 ml PO Q12H PRN PRN Reason: Mild Constipation Amlodipine Besylate (Norvasc) 5 mg PO DAILY [facility] Last Admin: 08/14/18 09:16 Dose: 5 mg Apixaban (Eliquis) 5 mg PO BID [facility] Last Admin: 08/14/18 09:16 Dose: 5 mg Bisacodyl (Dulcolax Supp) 10 mg RECTAL DAILY PRN PRN Reason: SEVERE CONSITIPATION Clopidogrel Bisulfate (Plavix) 75 mg PO DAILY [facility] Last Admin: 08/14/18 09:16 Dose: 75 mg Furosemide (Lasix) 20 mg PO Q2D [facility] Last Admin: 08/14/18 09:16 Dose: 20 mg Hydralazine HCl (Apresoline) 10 mg PO Q8H [facility] Last Admin: 08/14/18 10:54 Dose: 10 mg Hydroxychloroquine Sulfate (Plaquenil) 200 mg PO DAILY [facility] Last Admin: 08/14/18 09:17 Dose: 200 mg Ciprofloxacin/Dextrose (Cipro 200 Mg/100 Ml Inj) 200 mg in 100 mls @ 100 mls/ hr IV.SIG Q12H [facility] Last Infusion: 08/14/18 13:31 Dose: Infused Sodium Bicarbonate 25 meq/ (Sodium Chloride) 1,025 mls @ 100 mls/hr IV.CONT .[id number] [facility] Last Admin: 08/14/18 10:05 Dose: Not Given Lactulose (Lactulose Liq) 30 ml PO DAILY PRN PRN Reason: SEVERE CONSITIPATION Lanthanum Carbonate (Fosrenol Chewable) 500 mg PO TID [facility] Last Admin: 08/14/18 17:00 Dose: Not Given Meclizine HCl (Antivert) 25 mg PO Q6H PRN PRN Reason: NAUSEA OR DIZZINESS Metoprolol Tartrate (Lopressor) 25 mg PO Q12H [facility] Last Admin: 08/14/18 10:54 Dose: 25 mg Mirtazapine (Remeron) 30 mg PO HS [facility] Last Admin: 08/13/18 21:31 Dose: 30 mg Morphine Sulfate (Morphine Inj) 4 mg IV.PUSH Q3H PRN PRN Reason: PAIN 6-10;IF UNABLE TO TAKE PO Last Admin: 08/13/18 15:22 Dose: 4 mg Morphine Sulfate (Morphine Inj) 2 mg IV.PUSH Q3H PRN PRN Reason: PAIN 3-5; IF UABLE TO TAKE PO Last Admin: 08/14/18 02:46 Dose: 2 mg Naloxone HCl (Narcan Inj) 0.4 mg IV.PUSH UNSCH PRN PRN Reason: SEE LABEL COMMENTS Ondansetron HCl (Zofran Inj) 4 mg IV.PUSH Q6H PRN PRN Reason: NAUSEA OR VOMITING Last Admin: 08/13/18 13:59 Dose: 4 mg Pharmacy Profile Note (Vancomycin Consult Pharmacy) 1 each OTHER UNSCH PRN PRN Reason: Pharmacy to dose Senna/Docusate Sodium (Netta-Colace) 1 tab PO BID [facility] Last Admin: 08/14/18 09:17 Dose: 1 tab Sennosides (Senokot) 17.2 mg PO Q12H PRN PRN Reason: Moderate Constipation Sertraline HCl (Zoloft) 50 mg PO DAILY [facility] Last Admin: 08/14/18 09:16 Dose: 50 mg Zolpidem Tartrate (Ambien) 5 mg PO HS PRN PRN Reason: INSOMNIA Allergies Allergy/AdvReac Type Severity Reaction Status Date / Time cephalexin Allergy Severe rash Verified 08/13/18 06:34 diatrizoate meglumine Allergy Severe rash Verified 08/13/18 06:34 fluconazole Allergy Severe rash Verified 08/13/18 06:34 gadobenic acid Allergy Severe rash Verified 08/13/18 06:34 gadodiamide Allergy Severe rash Verified 08/13/18 06:34 gadoteridol Allergy Severe rash Verified 08/13/18 06:34 iodixanol Allergy Severe rash Verified 08/13/18 06:34 iohexol Allergy Severe rash Verified 08/13/18 06:34 pravastatin Allergy Severe rash Verified 08/13/18 06:34 erythromycin base AdvReac Urinary Verified 08/13/18 06:34 Freq (Inc/Dec) Home Medications Medication Instructions Recorded Confirmed Type acetaminophen-codeine 1 tab PO Q4HR PRN 05/26/18 08/13/18 History amlodipine 5 mg PO DAILY 05/26/18 08/13/18 History apixaban 5 mg PO BID 05/26/18 08/13/18 History clopidogrel 75 mg PO DAILY 05/26/18 08/13/18 History furosemide 20 mg PO Q2D 05/26/18 08/13/18 History hydralazine 10 mg PO Q8H 05/26/18 08/13/18 History hydrocodone-acetaminophen 1 tab PO Q4H PRN 05/26/18 08/13/18 History hydroxychloroquine 200 mg PO DAILY 05/26/18 08/13/18 History lanthanum 500 mg PO TID 05/26/18 08/13/18 History metoprolol tartrate 25 mg PO Q12H 05/26/18 08/13/18 History mirtazapine 30 mg PO HS 05/26/18 08/13/18 History sertraline 50 mg PO DAILY 05/26/18 08/13/18 History Exam Vital signs: Vital Signs 08/13/18 20:00 08/13/18 20:21 08/13/18 21:31 Temperature 97.9 F Pulse Rate 56 L Respiratory Rate 16 16 Blood Pressure 129/56 L Pulse Oximetry 87 L 91 L 08/14/18 00:00 08/14/18 01:44 08/14/18 02:02 Temperature 97.7 F Pulse Rate 65 70 Respiratory Rate 18 Blood Pressure 144/64 H Pulse Oximetry 86 L 95 08/14/18 02:51 08/14/18 02:56 08/14/18 03:39 Temperature 97.8 F 97.8 F Pulse Rate 75 66 Respiratory Rate 17 17 17 Blood Pressure 157/70 H 160/68 H Pulse Oximetry 94 L 93 L 08/14/18 08:00 08/14/18 12:00 08/14/18 15:52 Temperature 98.3 F 98.5 F Pulse Rate 71 74 Respiratory Rate 20 20 Blood Pressure 149/66 H 151/63 H Pulse Oximetry 98 94 L 95 08/14/18 16:00 08/14/18 18:53 Temperature 98.6 F Pulse Rate 67 Respiratory Rate 20 14 Blood Pressure 125/59 L Pulse Oximetry 96 Intake & Output 08/14/18 08/14/18 08/15/18 06:59 18:59 06:59 Intake Total 1100 / 1100 100 / 100 Output Total 650 / 650 Balance 450 / 450 100 / 100 Weight 35.6 kg Intake: IV 1100 / 1100 100 / 100 NS Inj 1,000 ML @ 100 mls/hr IV 1000 / 1000 .CONT .Q10H [facility] Rx#:[id number] Cipro 200 MG/100 ML Inj 200 mg 100 / 100 100 / 100 In 100 ml @ 100 mls/hr IV.SIG Q12H [facility] Rx#:[id number] Output: Urine 650 / 650 Other: # Voids 5 Date of Last Bowel Movement 08/13/18 - Constitutional no acute distress, cachectic, chronically ill appearing - Routine HEENT Exam Head: Present: normocephalic, atraumatic Eye: Present: EOMI, PERRL ENT: Present: mucous membranes dry, oropharynx clear Comments: edentuloous - Routine Chest/Breast/Axilla Exam Comments: barrele shaped chest - Routine Respiratory Exam Present: decreased breath sounds, CTA bilaterally. Absent: accessory muscle use , respiratory distress - Routine Cardiovascular Exam Present: RRR, S1, S2. Absent: murmur, gallop, rubs - Routine Abdominal Exam Present: soft, normoactive bowel sounds. Absent: tenderness, distended, organomegaly, mass - Routine Extremities Exam Present: amputation (L AKA - well healed). Absent: edema Comments: R foot with no palpable pulses, wound on the heal, no granulations, + necrotic tissue, no odor prominent loss of skin appendages and muscle wasting - Routine Skin Exam Present: dry, warm. Absent: rash - Routine Neurological Exam Present: alert, oriented X3, CN II-XII intact, moving all extremities, vision grossly intact, hearing grossly intact - Routine Psychiatric Exam Present: normal affect, cooperative Results - Labs CBC & Chem 7: 08/14/18 07:34 08/14/18 07:34 Labs: Laboratory Results - last 24 hr 08/13/18 08/13/18 08/13/18 08:51 19:45 21:06 WBC RBC Hgb Hct MCV MCH MCHC RDW Plt Count MPV Neut % (Auto) Lymph % (Auto) [place] % (Auto) Eos % (Auto) Baso % (Auto) Neut # (Auto) Lymph # (Auto) [place] # (Auto) Eos # (Auto) Baso # (Auto) WBC Differential Differential Comment PT INR Puncture Site Right brachial Patient Temperature 98.6 O2 Saturation 97 ABG pH 7.22 L* ABG pCO2 33 L ABG pO2 142 H ABG HCO3 13 L* ABG O2 Content 12.7 ABG Base Excess -13.2 L ABG Methemoglobin 1.1 Emre Test Present Hemoglobin 9.1 L Carboxyhemoglobin 1.0 O2 Delivery Device Nasal cannula Liter Flow 4.00 Inspired O2 21 Critical Value Yes Sodium Potassium Chloride Carbon Dioxide Anion Gap BUN Creatinine Estimated GFR POC Glucose Random Glucose Hemoglobin A1c Calcium Magnesium Total Bilirubin AST ALT Alkaline Phosphatase Total Creatine Kinase 44 Troponin I 0.02 Total Protein Albumin TSH Free T4 Urine Color Yellow Urine Clarity Cloudy H Urine pH 6.0 Ur Specific [place] 1.008 Urine Protein 100 H Urine Glucose (UA) Negative Urine Ketones Negative Urine Occult Blood Small H Urine Nitrate Positive H Urine Bilirubin Negative Urine Urobilinogen Less than 2 Ur Leukocyte Esterase Large H Urine RBC 5 H Urine WBC Urine Bacteria Few H Micro UA Comment Culture indicated Urine Culture Comments Culture indicated 08/14/18 08/14/18 08/14/18 00:55 07:34 07:34 WBC 9.7 RBC 3.28 L Hgb 9.6 L Hct 29.2 L MCV 89.1 MCH 29.4 MCHC 32.9 RDW 17.3 H Plt Count 436 MPV 6.7 L Neut % (Auto) 82.6 H Lymph % (Auto) 7.0 L [place] % (Auto) 7.9 Eos % (Auto) 1.5 Baso % (Auto) 1.0 Neut # (Auto) 8.0 H Lymph # (Auto) 0.7 L [place] # (Auto) 0.8 Eos # (Auto) 0.1 Baso # (Auto) 0.1 WBC Differential . Differential Comment Auto diff final PT 12.7 H INR 1.3 Puncture Site Left brachial Patient Temperature 98.6 O2 Saturation 97 ABG pH 7.19 L* ABG pCO2 35 L ABG pO2 143 H ABG HCO3 13 L* ABG O2 Content 12.9 ABG Base Excess -13.7 L ABG Methemoglobin 1.3 Emre Test Present Hemoglobin 9.3 L Carboxyhemoglobin 0.9 O2 Delivery Device Nasal cannula Liter Flow 4.00 Inspired O2 Critical Value Yes Sodium Potassium Chloride Carbon Dioxide Anion Gap BUN Creatinine Estimated GFR POC Glucose Random Glucose Hemoglobin A1c Calcium Magnesium Total Bilirubin AST ALT Alkaline Phosphatase Total Creatine Kinase Troponin I Total Protein Albumin TSH Free T4 Urine Color Urine Clarity Urine pH Ur Specific [place] Urine Protein Urine Glucose (UA) Urine Ketones Urine Occult Blood Urine Nitrate Urine Bilirubin Urine Urobilinogen Ur Leukocyte Esterase Urine RBC Urine WBC Urine Bacteria Micro UA Comment Urine Culture Comments 08/14/18 08/14/18 08/14/18 07:34 07:34 09:23 WBC RBC Hgb Hct MCV MCH MCHC RDW Plt Count MPV Neut % (Auto) Lymph % (Auto) [place] % (Auto) Eos % (Auto) Baso % (Auto) Neut # (Auto) Lymph # (Auto) [place] # (Auto) Eos # (Auto) Baso # (Auto) WBC Differential Differential Comment PT INR Puncture Site Patient Temperature O2 Saturation ABG pH ABG pCO2 ABG pO2 ABG HCO3 ABG O2 Content ABG Base Excess ABG Methemoglobin Emre Test Hemoglobin Carboxyhemoglobin O2 Delivery Device Liter Flow Inspired O2 Critical Value Sodium 141 Potassium 3.5 D Chloride 111 H Carbon Dioxide 16.8 L Anion Gap 13 BUN 53 H Creatinine 2.05 H Estimated GFR 24 L POC Glucose 168 H Random Glucose 41 L* Hemoglobin A1c 4.6 Calcium 7.7 L D Magnesium 1.9 Total Bilirubin 0.2 AST 14 L ALT 10 Alkaline Phosphatase 98 Total Creatine Kinase Troponin I Total Protein 6.0 L D Albumin 2.1 L TSH 3.680 Free T4 0.71 L Urine Color Urine Clarity Urine pH Ur Specific [place] Urine Protein Urine Glucose (UA) Urine Ketones Urine Occult Blood Urine Nitrate Urine Bilirubin Urine Urobilinogen Ur Leukocyte Esterase Urine RBC Urine WBC Urine Bacteria Micro UA Comment Urine Culture Comments - Imaging Impressions Chest X-Ray 08/14/18 00:44 CONCLUSION: Slight interval worsening in aeration. Assessment and Plan - Plan UTI, grew MRSA PVD sp L AKA and with R heel chronic ulcer, MRSA clx + Abnormal CXR, can not excude PNA change cipro to levaquine repeat CXR cont vanco awaitin g vasc surgery consult
[2018-08-14] MEDS: Mirtazapine 15 MG Tablet PO SCH (21:05)
[2018-08-15] MEDS: Acetaminophen/Codeine 300/30 MG Tablet PO PRN ×6 (01:00→22:38)
[2018-08-15] MEDS: SODIUM BICARBONATE IV.CONT SCH ×3 (03:47→17:32)
[2018-08-15] MEDS: SOD CHLORIDE 0.9% IV.CONT SCH ×3 (03:47→17:32)
[2018-08-15] MEDS: hydrALAZINE 10 MG Tablet PO SCH ×3 (03:49→18:08)
[2018-08-15 07:37] LABS: Baso # (Auto) 0.1 th/mm3 (0.0-0.2); Baso % (Auto) 0.9 % (0.0-2.0); Eos # (Auto) 0.3 th/mm3 (0.0-0.4); Eos % (Auto) 2.9 % (0.0-4.0); Hematocrit 29.7 % (35.0-46.0); Hemoglobin 9.8 gm/dL (11.6-15.3); Lymph # (Auto) 0.8 th/mm3 (1.0-4.8); Lymph % (Auto) 8.5 % (9.0-44.0); Mean Corpuscular HGB Conc 33.1 % (32.0-36.0); Mean Corpuscular Volume 87.8 fL (80.0-100.0); Mean Platelet Volume 6.4 fL (7.0-11.0); Mono # (Auto) 0.9 th/mm3 (0.0-0.9); Mono % (Auto) 9.1 % (0.0-8.0); Neut # (Auto) 7.4 th/mm3 (1.8-7.7); Neut % (Auto) 78.6 % (16.0-70.0); Platelet Count 440 th/mm3 (150-450); Red Blood Count 3.38 mil/mm3 (4.00-5.30); Red Cell Distribution Width 17.1 % (11.6-17.2); White Blood Count 9.4 th/mm3 (4.0-11.0)
[2018-08-15 08:09] LABS: Albumin 2.2 g/dL (3.4-5.0); Anion Gap 13 meq/L (5-15); Aspartate Aminotransferase 15 U/L (15-37); Blood Urea Nitrogen 46 mg/dL (7-18); Calcium 7.5 mg/dL (8.5-10.1); Carbon Dioxide 18.5 meq/L (21.0-32.0); Chloride 113 meq/L (98-107); Glomerular Filtration Rate 25 mL/min (>89); Glucose,Random 74 mg/dL (74-106); Magnesium 1.6 mg/dL (1.5-2.5); Potassium 3.5 meq/L (3.5-5.1); Sodium 144 meq/L (136-145)
[2018-08-15 08:11] LABS: Alanine Aminotransferase 9 U/L (10-53)
[2018-08-15 08:13] LABS: Alkaline Phosphatase 104 U/L (45-117); Total Protein 6.3 g/dL (6.4-8.2); Vancomycin,Random 12.3 Comment
[2018-08-15] MEDS: Sertraline 50 MG Tablet PO SCH (09:09)
[2018-08-15] MEDS: Senna/Docusate Sodium 8.6/50 MG Tablet PO SCH ×2 (09:09→20:53)
[2018-08-15] MEDS: Hydroxychloroquine 200 MG Tablet PO SCH (09:10)
[2018-08-15] MEDS: amLODIPine 5 MG Tablet PO SCH (09:10)
--- NOTE | 2018-08-15 10:49 | P.PNVS ---
Subjective Subjective/Hospital Course: 73/F alert in NAD Wounds to R LE stable w/o change Dressing changed Objective Vital Signs / I&O: Vital Signs 08/14/18 12:00 08/14/18 15:52 08/14/18 16:00 Temperature 98.5 F 98.6 F Pulse Rate 74 67 Respiratory Rate 20 20 Blood Pressure 151/63 H 125/59 L Pulse Oximetry 94 L 95 96 08/14/18 18:53 08/14/18 20:00 08/14/18 23:22 Temperature 98.4 F 98.4 F Pulse Rate 55 L 75 Respiratory Rate 14 18 20 Blood Pressure 141/63 H 152/70 H Pulse Oximetry 97 08/15/18 00:00 08/15/18 03:53 08/15/18 08:00 Temperature 98.2 F 98.6 F Pulse Rate 74 70 76 Respiratory Rate 16 16 Blood Pressure 173/74 H 176/74 H Pulse Oximetry 96 94 L Intake & Output 08/14/18 08/15/18 08/15/18 18:59 06:59 18:59 Intake Total 100 / 100 1275 / 1275 Output Total 0 / 0 Balance 100 / 100 1275 / 1275 Intake: IV 100 / 100 1275 / 1275 Sodium Bicarbonate 8.4% Inj 25 1025 / 1025 MEQ In NS Inj 1,000 ML @ 100 mls/hr IV.CONT .[id number] [facility] Rx# :[id number] Cipro 200 MG/100 ML Inj 200 mg 100 / 100 In 100 ml @ 100 mls/hr IV.SIG Q12H [facility] Rx#:[id number] Vancomycin Inj 1,000 MG In NS 250 / 250 Inj 250 ML @ 250 mls/hr IV.SIG ONCE ONE Rx#:[id number] Output: Urine 0 / 0 Other: # Voids 2 Date of Last Bowel Movement 08/13/18 08/13/18 Physical Exam: A&OX3, GCS 15 Speech Clear resp even +S1,S2 non [place] R DP/PT Necrotic R heel wound noted Wound to R hip with white exudate L AKA incision healed Laboratory Results - last 24 hr 08/13/18 08/14/18 08/15/18 08:51 07:34 07:19 WBC 9.4 RBC 3.38 L Hgb 9.8 L Hct 29.7 L MCV 87.8 MCH 29.0 MCHC 33.1 RDW 17.1 Plt Count 440 MPV 6.4 L Neut % (Auto) 78.6 H Lymph % (Auto) 8.5 L [place] % (Auto) 9.1 H Eos % (Auto) 2.9 Baso % (Auto) 0.9 Neut # (Auto) 7.4 Lymph # (Auto) 0.8 L [place] # (Auto) 0.9 Eos # (Auto) 0.3 Baso # (Auto) 0.1 WBC Differential . Differential Comment Auto diff final Sodium Potassium Chloride Carbon Dioxide Anion Gap BUN Creatinine Estimated GFR Random Glucose Hemoglobin A1c 4.6 Calcium Phosphorus Magnesium Total Bilirubin AST ALT Alkaline Phosphatase Total Protein Albumin Urine Color Yellow Urine Clarity Cloudy H Urine pH 6.0 Ur Specific [place] 1.008 Urine Protein 100 H Urine Glucose (UA) Negative Urine Ketones Negative Urine Occult Blood Small H Urine Nitrate Positive H Urine Bilirubin Negative Urine Urobilinogen Less than 2 Ur Leukocyte Esterase Large H Urine RBC 5 H Urine WBC Urine Bacteria Few H Micro UA Comment Culture indicated Urine Culture Comments Culture indicated Random Vancomycin 08/15/18 07:19 WBC RBC Hgb Hct MCV MCH MCHC RDW Plt Count MPV Neut % (Auto) Lymph % (Auto) [place] % (Auto) Eos % (Auto) Baso % (Auto) Neut # (Auto) Lymph # (Auto) [place] # (Auto) Eos # (Auto) Baso # (Auto) WBC Differential Differential Comment Sodium 144 Potassium 3.5 Chloride 113 H Carbon Dioxide 18.5 L Anion Gap 13 BUN 46 H Creatinine 1.93 H Estimated GFR 25 L Random Glucose 74 Hemoglobin A1c Calcium 7.5 L Phosphorus 4.0 Magnesium 1.6 Total Bilirubin 0.2 AST 15 ALT 9 L Alkaline Phosphatase 104 Total Protein 6.3 L Albumin 2.2 L Urine Color Urine Clarity Urine pH Ur Specific [place] Urine Protein Urine Glucose (UA) Urine Ketones Urine Occult Blood Urine Nitrate Urine Bilirubin Urine Urobilinogen Ur Leukocyte Esterase Urine RBC Urine WBC Urine Bacteria Micro UA Comment Urine Culture Comments Random Vancomycin 12.3 Microbiology 08/13/18 08:20 Gram Stain - Final Wound - Hip Wound Culture - Preliminary S. aureus MRSA 08/13/18 08:51 Urine Culture - Preliminary Clean Catch Urine S. aureus MRSA 08/13/18 09:30 Aerobic Blood Culture - Preliminary Blood - Peripheral No growth in 1 day Anaerobic Blood Culture - Preliminary No growth in 1 day 08/13/18 09:11 Aerobic Blood Culture - Preliminary Blood - Peripheral No growth in 1 day Anaerobic Blood Culture - Preliminary No growth in 1 day Impressions Chest X-Ray 08/14/18 00:44 CONCLUSION: Slight interval worsening in aeration. Assessment and Plan - Plan 73/F with a PMH of severe PAD Pt underwent a L AKA on 05/22/18 Pt w/ Severe R LE arterial occlusive disease with worsening tissue loss Unfortunately R LE is not limb salvageable Plan Discussed w/ pt and daughter- R LE AKA, when pt is ready Recommend continued medical management (anticoagulation/Statin therapy) Continue pain control Continue wound care per the wound care team Ceci Baptiste NP [facility] [phone]
[2018-08-15] MEDS: Metoprolol Tartrate 25 MG Tablet PO SCH ×2 (13:25→22:42)
--- NOTE | 2018-08-15 14:45 | XR ---
EXAM DATE: 08/15/2018 2:42 PM EDT AGE/SEX: 73 years / Female INDICATIONS: Cough. CLINICAL DATA: This is the patient's subsequent encounter. Patient reports that signs and symptoms h ave been present for 3 days and indicates a pain score of 0/10. MEDICAL/SURGICAL HISTORY: Hypertension. Myocardial infarction. Deep venous thrombosis. Arthriti s. Lupus. MRSA. . IVC filter. Parathyroid surgery. Cardiac stent. Orthopedic surgery, bilateral femu r, right ankle and left wrist. Cardiac catheterization. COMPARISON: [facility] [place], CHEST 1V SINGLE AP, 08/14/2018. . FINDINGS: The patient is bilateral small pleural effusions left greater than right. Lungs are grossly clear. He art and mediastinum are unremarkable. There is no visible pneumothorax. CONCLUSION: Small bilateral pleural effusions left greater than right. No infiltrate or mass. Electronically signed by: Alexey Miller MD 08/15/2018 2:44 PM EDT
--- NOTE | 2018-08-15 15:51 | P.PNIM ---
Subjective Interval history: Is a 73-year-old female with history of chronic kidney disease status post left bfgkw-bbp-hulx amputation and chronic wounds to the right ankle and right hip brought in by family due to weakness and dizziness for the past 36 hours. Patient reports decreased urination. Denies any diarrhea she denies chills. Denies any nausea vomiting but is now having some nausea vomiting in the room. Denies any pain has felt fatigued. States that her right hip wound started draining more the last couple days as well as her right ankle area. Patient HAS seen podiatry previously as well as Dr. Keene Patient was noted to have a urinary tract infection is also having nausea and vomiting We will continue to follow here. We will consult Dr. Keene 08-[address] NATALEE LOJA PT AND RN AND FAMILY AND CM AND DAY TRADER WILL CONSULT VASCULAR SURGERY TODAY FOR SEVERE PVOD OF RIGHT LOWER EXTREMITY AM LABS WOUNDS VISUALIZED- LARGE HEEL WOUND RIGHT LE 08-15 HAS SEVERE PERIPHERAL VASCULAR ARTERIAL DISEASE AND PVOD OF RIGHT LOWER EXTREMITY WANTS ANTIBIOTICS BUT DOES NOW WANT AKA OF RIGHT LE AT THIS TIME WANTS PAIN CONTROL ADJUSTED F[place] RN AND PT AND FAMILY AND CM WANTS HHC AT [place] AM LABS Physical Exam Vital signs: Vital Signs 08/14/18 15:52 08/14/18 16:00 08/14/18 18:53 Temperature 98.6 F Pulse Rate 67 Respiratory Rate 20 14 Blood Pressure 125/59 L Pulse Oximetry 95 96 08/14/18 20:00 08/14/18 23:22 08/15/18 00:00 Temperature 98.4 F 98.4 F Pulse Rate 55 L 75 74 Respiratory Rate 18 20 Blood Pressure 141/63 H 152/70 H Pulse Oximetry 97 08/15/18 03:53 08/15/18 08:00 08/15/18 12:00 Temperature 98.2 F 98.6 F 98.0 F Pulse Rate 70 76 75 Respiratory Rate 16 16 12 Blood Pressure 173/74 H 176/74 H 138/63 Pulse Oximetry 96 94 L 97 08/15/18 13:00 Temperature Pulse Rate 83 Respiratory Rate Blood Pressure Pulse Oximetry Intake & Output 08/14/18 08/15/18 08/15/18 18:59 06:59 18:59 Intake Total 100 / 100 1275 / 1275 Output Total 0 / 0 Balance 100 / 100 1275 / 1275 Intake: IV 100 / 100 1275 / 1275 Sodium Bicarbonate 8.4% Inj 25 1025 / 1025 MEQ In NS Inj 1,000 ML @ 100 mls/hr IV.CONT .[id number] [facility] Rx# :[id number] Cipro 200 MG/100 ML Inj 200 mg 100 / 100 In 100 ml @ 100 mls/hr IV.SIG Q12H [facility] Rx#:[id number] Vancomycin Inj 1,000 MG In NS 250 / 250 Inj 250 ML @ 250 mls/hr IV.SIG ONCE ONE Rx#:[id number] Output: Urine 0 / 0 Other: # Voids 2 Date of Last Bowel Movement 08/13/18 08/13/18 Narrative: GENERAL: Awake alert and oriented 3 talkative and cooperative very thin and cachectic appearing female SKIN: Warm and dry. Right lower extremity wound with some drainage right hip and right foot ankle area- RIGHT HEEL LARGE NECROTIC WOUND HEAD: Atraumatic. Normocephalic. EYES: Pupils equal and round. No scleral icterus. No injection or drainage. ENT: No nasal bleeding or discharge. Mucous membranes pink and moist. NECK: Trachea midline. No JVD. CARDIOVASCULAR: Regular rate and rhythm. S1-S2 no S3 or S4 RESPIRATORY: No accessory muscle use. Clear to auscultation. Breath sounds equal bilaterally. GASTROINTESTINAL: Abdomen soft, non-tender, nondistended. Hepatic and splenic margins not palpable. MUSCULOSKELETAL: Extremities without clubbing, cyanosis, or edema. No obvious deformities. Left uawgi-ujo-hzvw amputation-right lower extremity with wound and right hip and wound on ankle-foot. Not able to bear weight on the right lower extremity--LARGE WOUND ON HEEL- NECROTIC NEUROLOGICAL: Awake and alert. No obvious cranial nerve deficits. Motor grossly within normal limits. 4 out of 5 muscle strength in the arms and 4/5 in right leg. Not able to bear weight on the right lower extremity at all. Normal speech. PSYCHIATRIC: Appropriate mood and affect; insight and judgment ABnormal. Results - Labs CBC & Chem 7: 08/15/18 07:19 08/15/18 07:19 Laboratory Results - last 24 hr 08/15/18 08/15/18 07:19 07:19 WBC 9.4 RBC 3.38 L Hgb 9.8 L Hct 29.7 L MCV 87.8 MCH 29.0 MCHC 33.1 RDW 17.1 Plt Count 440 MPV 6.4 L Neut % (Auto) 78.6 H Lymph % (Auto) 8.5 L [place] % (Auto) 9.1 H Eos % (Auto) 2.9 Baso % (Auto) 0.9 Neut # (Auto) 7.4 Lymph # (Auto) 0.8 L [place] # (Auto) 0.9 Eos # (Auto) 0.3 Baso # (Auto) 0.1 WBC Differential . Differential Comment Auto diff final Sodium 144 Potassium 3.5 Chloride 113 H Carbon Dioxide 18.5 L Anion Gap 13 BUN 46 H Creatinine 1.93 H Estimated GFR 25 L Random Glucose 74 Calcium 7.5 L Phosphorus 4.0 Magnesium 1.6 Total Bilirubin 0.2 AST 15 ALT 9 L Alkaline Phosphatase 104 Total Protein 6.3 L Albumin 2.2 L Random Vancomycin 12.3 Microbiology 08/13/18 08:51 Clean Catch Urine Urine Culture - Preliminary S. aureus MRSA 08/13/18 08:20 Wound - Hip Gram Stain - Final 08/13/18 08:20 Wound - Hip Wound Culture - Final S. aureus MRSA 08/13/18 09:30 Blood - Peripheral Aerobic Blood Culture - Preliminary No growth in 2 days 08/13/18 09:30 Blood - Peripheral Anaerobic Blood Culture - Preliminary No growth in 2 days 08/13/18 09:11 Blood - Peripheral Aerobic Blood Culture - Preliminary No growth in 2 days 08/13/18 09:11 Blood - Peripheral Anaerobic Blood Culture - Preliminary No growth in 2 days - Imaging Impressions Chest X-Ray 08/15/18 06:00 CONCLUSION: Small bilateral pleural effusions left greater than right. No infiltrate or mass. Assessment and Plan - Plan Urinary tract infection WITH MRSA INFECTIONS will continue on LEVAQUIN PER ID Renal insufficiency/stage III chronic kidney disease/dehydration continue on fluid rehydration with IV fluids Hypertension resume home medications Depression continue on her sertraline Failure to thrive/protein calorie malnourishment severe continue on mirtazapine to help with appetite stimulation History of coronary artery disease continue on Plavix and the apixaban Chronic pain on chronic acetaminophen/codeine and hydrocodone acetaminophen AND MORPHINE NEEDED Coronary artery disease continue on Plavix and APIXABAN Noncompliance recommend patient continue on medications- HAD REFUSED SOME MEDICATIONS AND NOT TAKING AT HOME WELL HERE Tobacco abuse recommend smoking cessation Alcohol abuse recommend alcohol cessation Chronic wound to right hip and right foot/ankle consult Dr. 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
--- NOTE | 2018-08-15 15:53 | P.DCO ---
- Physical Therapy Order: Evaluate and treat, Improve ambulation, Strength and gait training - Occupational Therapy Order: Evaluate and treat, Improve ADL, Gross motor coordination, Fine motor coordination - Home Health Nursing Order: Medical education, Signs/symptoms of disease process, Medication education-adverse effect, Wound care and dressing changes, Nursing assessment with vital signs, Telehealth - Home Health Aide Order: To assist in: Bathing and personal care, bilingual account manager and meal prep - Case Management Consult Yes - Certification I have seen patient Precious Plaza on 08/15/18. My clinical findings support the need for the requested home health care services because: Limited mobility due to disease progression, Deconditioned with increased weakness, Medication compliance is questionable, Limited ability to care for self, High risk of falls, Infection with risk of complications I certify that my clinical findings support that this patient is homebound because: Impaired cognitive ability/safety, Unsteady gait/balance, Unsafe to leave home unassisted, Non-ambulatory: confined to bed or chair, Poor cardiac reserve
--- NOTE | 2018-08-15 18:43 | CT ---
EXAM DATE: 08/15/2018 6:27 PM EDT AGE/SEX: 73 years / Female INDICATIONS: Ostiomyelitis looking for a sinus tract CLINICAL DATA: This is the patient's initial encounter. Patient reports that signs and symptoms have been present for 1 day and indicates a pain score of 0/10. MEDICAL/SURGICAL HISTORY: Renal disease. Cardiovascular disease. Deep venous thrombosis. Coronary artery stent. RADIATION DOSE: 6.26 CTDI (mGy) COMPARISON: [facility], CT PELVIS W/O CONTRAST, 02/09/2018. . TECHNIQUE: Multiple contiguous axial images were acquired using a multirow detector CT scanner witho ut contrast. Multiplanar reconstruction was performed in the sagittal and coronal planes. Using aut omated exposure control and adjustment of the mA and/or kV according to patient size, radiation dose was kept as low as reasonably achievable to obtain optimal diagnostic quality images. DICOM format i mage data is available electronically for review and comparison. FINDINGS: Bones: There has been previous internal fixation with intramedullary rome/compression screw in the ri t proximal femur. No evidence for osteomyelitis. [place] appears intact. Abscess is not seen. The overa ll appearance is unchanged. Old fractures are seen within the pelvis bilaterally including the super ior and inferior pubic rami as bilaterally. Joints: No significant arthropathy or bony hypertrophy is seen. The articular surface of the femora l head is smooth. Soft Tissues: Diffuse cellulitis of the lateral thigh. Other: No foreign bodies seen. There are vascular grafts within the right thigh. CONCLUSION: 1. Previous internal fixation. 2. No definite evidence for osteomyelitis. 3. Old fractures in the pelvis bilaterally. Electronically signed by: Vitor Alarcon MD 08/15/2018 6:42 PM EDT
--- NOTE | 2018-08-15 18:54 | P.PNID ---
Subjective Remarks: no new c/o afebrile Antibiotics: vancomycin Allergies/Adverse Reactions: Allergies cephalexin Allergy (Severe, Verified 08/13/18 06:34) rash diatrizoate meglumine Allergy (Severe, Verified 08/13/18 06:34) rash fluconazole Allergy (Severe, Verified 08/13/18 06:34) rash gadobenic acid Allergy (Severe, Verified 08/13/18 06:34) rash gadodiamide Allergy (Severe, Verified 08/13/18 06:34) rash gadoteridol Allergy (Severe, Verified 08/13/18 06:34) rash iodixanol Allergy (Severe, Verified 08/13/18 06:34) rash iohexol Allergy (Severe, Verified 08/13/18 06:34) rash pravastatin Allergy (Severe, Verified 08/13/18 06:34) rash erythromycin base Adverse Reaction (Verified 08/13/18 06:34) Urinary Freq (Inc/Dec) Objective Vital Signs 08/14/18 18:53 08/14/18 20:00 08/14/18 23:22 Temperature 98.4 F 98.4 F Pulse Rate 55 L 75 Respiratory Rate 14 18 20 Blood Pressure 141/63 H 152/70 H Pulse Oximetry 97 08/15/18 00:00 08/15/18 03:53 08/15/18 08:00 Temperature 98.2 F 98.6 F Pulse Rate 74 70 76 Respiratory Rate 16 16 Blood Pressure 173/74 H 176/74 H Pulse Oximetry 96 94 L 08/15/18 12:00 08/15/18 13:00 08/15/18 16:00 Temperature 98.0 F 98.7 F Pulse Rate 75 83 67 Respiratory Rate 12 12 Blood Pressure 138/63 126/61 Pulse Oximetry 97 93 L Intake & Output 08/14/18 08/15/18 08/15/18 18:59 06:59 18:59 Intake Total 100 / 100 1275 / 1275 Output Total 0 / 0 Balance 100 / 100 1275 / 1275 Intake: IV 100 / 100 1275 / 1275 Sodium Bicarbonate 8.4% Inj 25 1025 / 1025 MEQ In NS Inj 1,000 ML @ 100 mls/hr IV.CONT .[id number] [facility] Rx# :[id number] Cipro 200 MG/100 ML Inj 200 mg 100 / 100 In 100 ml @ 100 mls/hr IV.SIG Q12H [facility] Rx#:[id number] Vancomycin Inj 1,000 MG In NS 250 / 250 Inj 250 ML @ 250 mls/hr IV.SIG ONCE ONE Rx#:[id number] Output: Urine 0 / 0 Other: # Voids 2 Date of Last Bowel Movement 08/13/18 08/13/18 08/15/18 17:20 Blood - Other Aerobic Blood Culture - Pending 08/15/18 17:20 Blood - Other Anaerobic Blood Culture - Pending 08/13/18 08:51 Clean Catch Urine Urine Culture - Final S. aureus MRSA 08/13/18 08:20 Wound - Hip Gram Stain - Final 08/13/18 08:20 Wound - Hip Wound Culture - Final S. aureus MRSA 08/13/18 09:30 Blood - Peripheral Aerobic Blood Culture - Preliminary No growth in 2 days 08/13/18 09:30 Blood - Peripheral Anaerobic Blood Culture - Preliminary No growth in 2 days 08/13/18 09:11 Blood - Peripheral Aerobic Blood Culture - Preliminary No growth in 2 days 08/13/18 09:11 Blood - Peripheral Anaerobic Blood Culture - Preliminary No growth in 2 days Lab - Hematology Results 08/14/18 08/15/18 07:34 07:19 WBC 9.7 9.4 RBC 3.28 L 3.38 L Hgb 9.6 L 9.8 L Hct 29.2 L 29.7 L MCV 89.1 87.8 MCH 29.4 29.0 MCHC 32.9 33.1 RDW 17.3 H 17.1 Plt Count 436 440 MPV 6.7 L 6.4 L Neut % (Auto) 82.6 H 78.6 H Lymph % (Auto) 7.0 L 8.5 L [place] % (Auto) 7.9 9.1 H Eos % (Auto) 1.5 2.9 Baso % (Auto) 1.0 0.9 Neut # (Auto) 8.0 H 7.4 Lymph # (Auto) 0.7 L 0.8 L [place] # (Auto) 0.8 0.9 Eos # (Auto) 0.1 0.3 Baso # (Auto) 0.1 0.1 WBC Differential . . Differential Comment Auto diff final Auto diff final Lab - Chemistry Results 08/13/18 08/14/18 08/14/18 19:45 07:34 07:34 Sodium 141 Potassium 3.5 D Chloride 111 H Carbon Dioxide 16.8 L Anion Gap 13 BUN 53 H Creatinine 2.05 H Estimated GFR 24 L POC Glucose Random Glucose 41 L* Hemoglobin A1c 4.6 Calcium 7.7 L D Phosphorus Magnesium 1.9 Total Bilirubin 0.2 AST 14 L ALT 10 Alkaline Phosphatase 98 Total Creatine Kinase 44 Troponin I 0.02 Total Protein 6.0 L D Albumin 2.1 L TSH 3.680 Free T4 0.71 L 08/14/18 08/15/18 09:23 07:19 Sodium 144 Potassium 3.5 Chloride 113 H Carbon Dioxide 18.5 L Anion Gap 13 BUN 46 H Creatinine 1.93 H Estimated GFR 25 L POC Glucose 168 H Random Glucose 74 Hemoglobin A1c Calcium 7.5 L Phosphorus 4.0 Magnesium 1.6 Total Bilirubin 0.2 AST 15 ALT 9 L Alkaline Phosphatase 104 Total Creatine Kinase Troponin I Total Protein 6.3 L Albumin 2.2 L TSH Free T4 Imaging: ITS Impressions Hip CT 08/15/18 00:00 CONCLUSION: 1. Previous internal fixation. 2. No definite evidence for osteomyelitis. 3. Old fractures in the pelvis bilaterally. Chest X-Ray 08/15/18 06:00 CONCLUSION: Small bilateral pleural effusions left greater than right. No infiltrate or mass. Physical Exam: GENERAL: NAD frail, cachectic elderly pt SKIN: Warm and dry. no rash HEAD: Atraumatic. Normocephalic. EYES: Pupils equal and round. No scleral icterus. No injection or drainage. ENT: No nasal bleeding or discharge. Mucous membranes pink and moist. NECK: Trachea midline. No JVD. CARDIOVASCULAR: Regular rate and rhythm. RESPIRATORY: No accessory muscle use. Clear to auscultation. Breath sounds decreassed bilaterally. Barrel chaped chest GASTROINTESTINAL: Abdomen soft, non-tender, nondistended. Hepatic and splenic margins not palpable. MUSCULOSKELETAL: Extremities without clubbing, cyanosis, or edema. well healed L AKA R thigh with minimal swelling , small opening draining oderless thick white pus Prominent muscle bulk loss NEUROLOGICAL: Awake and alert. No obvious cranial nerve deficits. Motor grossly within normal limits. Five out of 5 muscle strength in the arms and legs. Normal speech. PSYCHIATRIC: calm, cooperative Assessment and Plan - Plan UTI, grew MRSA PVD sp L AKA and with R heel chronic ulcer, R hip skin abscess MRSA clx + - CT wo contrast confirmed intramedullary rina, no s/o osteo or sinus tract Abnormal CXR, can not excude PNA - no infiltrates, just effusions on the CXR CKD dc levaquine cont vanco Monitor renal fnx. Will not use dapto, pt reportedly has issues with it in the past [facility] surgery rec's dw Dr Meyer
[2018-08-15] MEDS: Mirtazapine 15 MG Tablet PO SCH (20:52)
[2018-08-16] MEDS: hydrALAZINE 10 MG Tablet PO SCH ×3 (03:19→18:01)
[2018-08-16] MEDS: SOD CHLORIDE 0.9% IV.CONT SCH ×3 (05:04→21:50)
[2018-08-16] MEDS: SODIUM BICARBONATE IV.CONT SCH ×3 (05:04→21:50)
[2018-08-16 06:09] LABS: Baso # (Auto) 0.1 th/mm3 (0.0-0.2); Baso % (Auto) 0.9 % (0.0-2.0); Eos # (Auto) 0.3 th/mm3 (0.0-0.4); Eos % (Auto) 3.5 % (0.0-4.0); Hematocrit 25.2 % (35.0-46.0); Hemoglobin 8.3 gm/dL (11.6-15.3); Lymph # (Auto) 0.7 th/mm3 (1.0-4.8); Lymph % (Auto) 8.1 % (9.0-44.0); Mean Corpuscular HGB Conc 33.1 % (32.0-36.0); Mean Corpuscular Hemoglobin 29.6 pg (27.0-34.0); Mean Corpuscular Volume 89.4 fL (80.0-100.0); Mean Platelet Volume 6.4 fL (7.0-11.0); Mono # (Auto) 0.6 th/mm3 (0.0-0.9); Mono % (Auto) 7.3 % (0.0-8.0); Neut # (Auto) 6.7 th/mm3 (1.8-7.7); Neut % (Auto) 80.2 % (16.0-70.0); Platelet Count 359 th/mm3 (150-450); Red Blood Count 2.82 mil/mm3 (4.00-5.30); Red Cell Distribution Width 17.9 % (11.6-17.2); White Blood Count 8.4 th/mm3 (4.0-11.0)
[2018-08-16] MEDS: Acetaminophen/Codeine 300/30 MG Tablet PO PRN ×3 (06:12→15:45)
[2018-08-16 06:56] LABS: Albumin 1.7 g/dL (3.4-5.0); Calcium 5.7 mg/dL (8.5-10.1); Carbon Dioxide 18.7 meq/L (21.0-32.0); Magnesium 1.2 mg/dL (1.5-2.5); Phosphorus 3.4 mg/dL (2.5-4.9); Vancomycin,Random 15.3 Comment
[2018-08-16] MEDS: Senna/Docusate Sodium 8.6/50 MG Tablet PO SCH ×2 (08:04→21:40)
[2018-08-16] MEDS: Sertraline 50 MG Tablet PO SCH (08:04)
[2018-08-16] MEDS: amLODIPine 5 MG Tablet PO SCH (08:05)
[2018-08-16] MEDS: Hydroxychloroquine 200 MG Tablet PO SCH (08:05)
[2018-08-16] MEDS: Furosemide 20 MG Tablet PO SCH (08:06)
--- NOTE | 2018-08-16 10:10 | P.PNIM ---
Subjective Interval history: The patient was resting comfortably. Her daughter was at the bedside. The patient stated that she did not want to pursue surgery at this time. She was wondering when she could go home. She said she has not been eating well secondary to gastroparesis. She says she has some pain and would like increased pain medication. Discussed with nursing. Physical Exam Vital signs: Vital Signs 08/15/18 12:00 08/15/18 13:00 08/15/18 16:00 Temperature 98.0 F 98.7 F Pulse Rate 75 83 67 Respiratory Rate 12 12 Blood Pressure 138/63 126/61 Pulse Oximetry 97 93 L 08/15/18 20:00 08/15/18 23:01 08/15/18 23:51 Temperature 98.5 F 97.8 F Pulse Rate 73 80 76 Respiratory Rate 17 20 Blood Pressure 161/70 H 188/78 H Pulse Oximetry 93 L 95 08/16/18 00:00 08/16/18 04:00 08/16/18 08:00 Temperature 99.2 F 98.9 F 99.3 F Pulse Rate 68 68 82 Respiratory Rate 18 18 16 Blood Pressure 174/76 H 164/78 H 176/74 H Pulse Oximetry 95 95 93 L Intake & Output 08/15/18 08/16/18 08/16/18 18:59 06:59 18:59 Intake Total 480 / 480 1025 / 1025 Balance 480 / 480 1025 / 1025 Weight 33.5 kg Intake: IV 1025 / 1025 Sodium Bicarbonate 8.4% Inj 25 1025 / 1025 MEQ In NS Inj 1,000 ML @ 100 mls/hr IV.CONT .[id number] [facility] Rx# :[id number] Oral 480 / 480 Other: # Voids 1 Date of Last Bowel Movement 08/15/18 Narrative: GENERAL: No distress SKIN: Warm and dry. HEAD: Atraumatic. Normocephalic. EYES: Pupils equal and round. No scleral icterus. No injection or drainage. ENT: No nasal bleeding or discharge. Mucous membranes pink and moist. NECK: Trachea midline. No JVD. CARDIOVASCULAR: Regular rate and rhythm. S1-S2 no S3 or S4. RESPIRATORY: No accessory muscle use. Clear to auscultation. Breath sounds equal bilaterally. GASTROINTESTINAL: Abdomen soft, non-tender, nondistended. Hepatic and splenic margins not palpable. MUSCULOSKELETAL: Extremities without clubbing, cyanosis, or edema. No obvious deformities. Left wpstq-[id number]-[id number] amputation. Right foot bandaged. NEUROLOGICAL: Awake and alert. No obvious cranial nerve deficits. Motor grossly within normal limits. 4 out of 5 muscle strength in the arms and 4/5 in right leg. Not able to bear weight on the right lower extremity at all. Normal speech. PSYCHIATRIC: Appropriate mood and affect. Results - Labs CBC & Chem 7: 08/16/18 04:57 08/16/18 04:57 Laboratory Results - last 24 hr 08/16/18 08/16/18 04:57 04:57 WBC 8.4 RBC 2.82 L Hgb 8.3 L Hct 25.2 L MCV 89.4 MCH 29.6 MCHC 33.1 RDW 17.9 H Plt Count 359 MPV 6.4 L Neut % (Auto) 80.2 H Lymph % (Auto) 8.1 L [place] % (Auto) 7.3 Eos % (Auto) 3.5 Baso % (Auto) 0.9 Neut # (Auto) 6.7 Lymph # (Auto) 0.7 L [place] # (Auto) 0.6 Eos # (Auto) 0.3 Baso # (Auto) 0.1 WBC Differential . Differential Comment Auto diff final Sodium 148 H Potassium 3.0 L Chloride 119 H Carbon Dioxide 18.7 L Anion Gap 10 BUN 34 H Creatinine 1.55 H Estimated GFR 33 L Random Glucose 58 L Calcium 5.7 L* D Prot Corrected Calcium 6.6 L* Phosphorus 3.4 Magnesium 1.2 L Total Bilirubin 0.2 AST 12 L ALT 7 L Alkaline Phosphatase 84 Total Protein 5.0 L D Albumin 1.7 L Random Vancomycin 15.3 Microbiology 08/13/18 08:51 Clean Catch Urine Urine Culture - Final S. aureus MRSA 08/13/18 08:20 Wound - Hip Gram Stain - Final 08/13/18 08:20 Wound - Hip Wound Culture - Final S. aureus MRSA 08/13/18 09:30 Blood - Peripheral Aerobic Blood Culture - Preliminary No growth in 2 days 08/13/18 09:30 Blood - Peripheral Anaerobic Blood Culture - Preliminary No growth in 2 days 08/13/18 09:11 Blood - Peripheral Aerobic Blood Culture - Preliminary No growth in 2 days 08/13/18 09:11 Blood - Peripheral Anaerobic Blood Culture - Preliminary No growth in 2 days - Imaging Impressions Hip CT 08/15/18 00:00 CONCLUSION: 1. Previous internal fixation. 2. No definite evidence for osteomyelitis. 3. Old fractures in the pelvis bilaterally. Chest X-Ray 08/15/18 06:00 CONCLUSION: Small bilateral pleural effusions left greater than right. No infiltrate or mass. Assessment and Plan - Assessment (1) RADHA (acute kidney injury) Code(s): N17.9 - Acute kidney failure, unspecified Status: Acute (2) Acute UTI Code(s): N39.0 - Urinary tract infection, site not specified Status: Acute (3) Dehydration Code(s): E86.0 - Dehydration Status: Acute (4) Pressure ulcer, hip Code(s): L89.209 - Pressure ulcer of unspecified hip, unspecified stage Status : Acute (5) Severe peripheral arterial disease Code(s): I73.9 - Peripheral vascular disease, unspecified Status: Acute (6) Ulcer of heel Code(s): L97.409 - Non-pressure chronic ulcer of unspecified heel and midfoot with unspecified severity Status: Acute - Plan Urinary tract infection MRSA growing in urine. ID consult appreciated. -IV vanco per ID. Peripheral vascular disease Patient has a history of left AKA. Vascular surgery is currently following the patient. Wound care physician has also been consulted. Wound culture growing MRSA. -Follow up with vascular surgery, currently recommending right AKA. -dressings per wound care. -antibiotics per ID. Renal insufficiency/stage III chronic kidney disease/dehydration Improving. -continue on fluid rehydration with IV fluids. Hypocalcemia/Hypomagnesemia/Hypokalemia S/t decreased PO intake. -replete IV and monitor. Failure to thrive/protein calorie malnourishment severe S/t gastroparesis. -continue on mirtazapine to help with appetite stimulation. -gastroparesis diet. -add Ensure. -tube puller consult. Coronary artery disease -continue on Plavix and apixaban. Tobacco abuse Chronic. -recommend smoking cessation. Anemia Chronic. On apixaban. -follow CBC. -check Hemoccult. PPx: Apixaban
[2018-08-16] MEDS: Metoprolol Tartrate 25 MG Tablet PO SCH ×2 (10:31→22:44)
[2018-08-16] MEDS: KCL 20 mEq/Dextrose 5% Inj 1,000 ML IV.CONT SCH ×2 (10:31→18:59)
[2018-08-16] MEDS: Mag Sulf 1 gm/100 ml Premix 100 ML IV.SIG SCH ×3 (10:31→12:42)
[2018-08-16] MEDS ORDERED: Calcium Chloride Inj 2 GM in Dextrose 5% in Water Inj 100 ML IV.SIG ONE ×2 (12:00)
[2018-08-16] MEDS: Morphine Inj 4 MG/ML Vial IV.PUSH PRN (13:56)
--- NOTE | 2018-08-16 19:16 | P.PNADD ---
Addendum to Inpatient Note Additional information: Dr Serrano recommended R AKA, pt does not want to pursue surgery at this time CT not sugg of sinus tract
--- NOTE | 2018-08-16 20:21 | ECG ---
Date Performed: 08/16/2018 Time Performed: 10:50:27 PTAGE: 73 years EKG: Sinus rhythm MARKED LEFT AXIS DEVIATION SEPTAL MYOCARDIAL INFARCTION , OF INDETERMINATE AGE Compared to previous tracing, Left axis deviation is new ABNORMAL ECG PREVIOUS TRACING : 04/20/2018 16.30 DOCTOR: Lupillo Ramirez Interpretating Date/Time 08/16/2018 20:20:49
[2018-08-16] MEDS: Mirtazapine 15 MG Tablet PO SCH (21:41)
[2018-08-17] MEDS: Morphine Inj 4 MG/ML Vial IV.PUSH PRN ×3 (00:03→23:17)
[2018-08-17] MEDS: hydrALAZINE 10 MG Tablet PO SCH ×3 (02:04→18:25)
[2018-08-17] MEDS: KCL 20 mEq/Dextrose 5% Inj 1,000 ML IV.CONT SCH ×2 (02:04→10:13)
[2018-08-17 06:27] LABS: Baso # (Auto) 0.1 th/mm3 (0.0-0.2); Baso % (Auto) 0.9 % (0.0-2.0); Eos # (Auto) 0.4 th/mm3 (0.0-0.4); Eos % (Auto) 3.2 % (0.0-4.0); Hematocrit 28.2 % (35.0-46.0); Hemoglobin 9.1 gm/dL (11.6-15.3); Lymph # (Auto) 0.8 th/mm3 (1.0-4.8); Lymph % (Auto) 6.5 % (9.0-44.0); Mean Corpuscular HGB Conc 32.4 % (32.0-36.0); Mean Corpuscular Hemoglobin 29.1 pg (27.0-34.0); Mean Corpuscular Volume 89.9 fL (80.0-100.0); Mean Platelet Volume 6.4 fL (7.0-11.0); Mono # (Auto) 0.9 th/mm3 (0.0-0.9); Mono % (Auto) 7.3 % (0.0-8.0); Neut # (Auto) 9.8 th/mm3 (1.8-7.7); Neut % (Auto) 82.1 % (16.0-70.0); Platelet Count 431 th/mm3 (150-450); Red Blood Count 3.14 mil/mm3 (4.00-5.30); Red Cell Distribution Width 18.1 % (11.6-17.2); White Blood Count 11.9 th/mm3 (4.0-11.0)
[2018-08-17 06:59] LABS: Calcium 9.7 mg/dL (8.5-10.1); Magnesium 2.7 mg/dL (1.5-2.5); Phosphorus 3.9 mg/dL (2.5-4.9); Potassium 4.5 meq/L (3.5-5.1)
[2018-08-17] MEDS: Senna/Docusate Sodium 8.6/50 MG Tablet PO SCH ×2 (08:03→23:23)
[2018-08-17] MEDS: Sertraline 50 MG Tablet PO SCH (08:05)
[2018-08-17] MEDS: Hydroxychloroquine 200 MG Tablet PO SCH (08:05)
[2018-08-17] MEDS: amLODIPine 5 MG Tablet PO SCH (08:05)
[2018-08-17] MEDS: SOD CHLORIDE 0.9% IV.CONT SCH (08:06)
[2018-08-17] MEDS: SODIUM BICARBONATE IV.CONT SCH (08:06)
[2018-08-17] MEDS: Metoprolol Tartrate 25 MG Tablet PO SCH ×2 (10:17→23:22)
--- NOTE | 2018-08-17 11:39 | P.DIET ---
Nutritional Evaluation Type of nutrition evaluation: initial Nutrition screening: [facility] (Malnutrition) Subjective Subjective Comments: Reports she is not eating d/t gastroparesis and pain. R AKA has been recommended but pt does not want to proceed at this time. Objective - Diagnosis UTI, RADHA, Dehydration - Objective Body Mass Index: 13.6 % IBW: 77 (97#) Body Weight Used for Calculations: IBW (44 kg) Energy Needs - Lower Range (kCal/kg): 32 Energy Needs - Upper Range (kCal/kg): 36 Lower Limit kCal/kg (kCals): 1,408 Upper Limit kCal/kg (kCals): 1,584 Lower Limit Protein Factor (Grams per Kg): 1.2 Upper Limit Protein Factor (Grams per Kg): 1.6 Lower Protein Needs (Protein): 53 Upper Protein Needs (Protein): 70 Dietitian Reviewed in Medical Record: Current diet, Curent medications, Intake & Output, Labs, Medical history, Wound/DTI Diet Order: Regular with Ensure Enlive on trays Objective Comments: Dmitriy FERNANDES (05/22/18) non-pressure chronic ulcer of R heel and foot Feeding - Current PO Supplement Current Supplement: Ensure Enlive Current Supplement Flavor: Vanilla Current Frequency of Supplement: Three times a day Current kCals Provided by Supplement: 350 (per 8 oz) Current Protein Provided by Supplement: 20 (per 8 oz) Assessment Assessment: Pt is at high nutriiton risk 2' to dx, poor po intake and low wt with a BMI of 13.6. Pt will received Ensure Enlive tid,; RD will monitor acceptance. Pt is able to make food preferences known when ordering. Pt may benefit from a daily MVI/min. RD following. Recommendations: 1. Diet as ordered with Ensure Enlive tid 2. Please order MVI with minerals 3. Please record % of meal eaten in EMR Feeding Assessment Dietitian to Monitor: Lab values, Supplement acceptance, Intake & Output, Diet tolerance, Weight change, PO Intake, Wound/skin status, Medical course
--- NOTE | 2018-08-17 12:59 | P.PNIM ---
Subjective Interval history: The patient wanted to know the results of her imaging study. She said she would prefer not to have surgery during this hospitalization. She said she was drinking her Ensure. Physical Exam Vital signs: Vital Signs 08/16/18 14:04 08/16/18 16:00 08/16/18 16:11 Temperature 98.7 F Pulse Rate 69 Respiratory Rate 16 18 16 Blood Pressure 184/78 H Pulse Oximetry 94 L 08/16/18 18:14 08/16/18 20:00 08/17/18 00:00 Temperature 98.9 F 98.7 F Pulse Rate 69 72 66 Respiratory Rate 14 15 Blood Pressure 152/71 H 147/67 H Pulse Oximetry 97 95 08/17/18 04:00 08/17/18 04:06 08/17/18 07:56 Temperature 99 F Pulse Rate 72 72 Respiratory Rate 18 16 Blood Pressure 166/74 H Pulse Oximetry 98 08/17/18 08:00 Temperature 99 F Pulse Rate 77 Respiratory Rate 18 Blood Pressure 171/75 H Pulse Oximetry 93 L Intake & Output 08/16/18 08/17/18 08/17/18 18:59 06:59 18:59 Intake Total 2545 / 2545 1390 / 1390 2024 Output Total 600 / 600 Balance 2545 / 2545 790 / 790 2024 Weight 33.8 kg Intake: IV 2545 / 2545 1150 / 1150 2024 D5W + KCL 20 mEq Inj 1,000 ML @ 1000 / 1000 1000 / 1000 1000 / 1000 125 mls/hr IV.CONT .Q8H [facility] Rx #:[id number] Sodium Bicarbonate 8.4% Inj 25 1025 / 1025 1025 / 1025 MEQ In NS Inj 1,000 ML @ 100 mls/hr IV.CONT .[id number] [facility] Rx# :[id number] Calcium Chloride Inj 2 GM In 120 / 120 D5W Inj 100 ML @ 120 mls/hr IV. SIG ONCE ONE Rx#:[id number] Levaquin 750 mg Premix Inj 150 150 / 150 ML @ 100 mls/hr IV.SIG Q48H [facility] Rx#:[id number] Magnesium Sulfate 1 gm/D5W 100 300 / 300 ml Premix 100 ML @ 100 mls/hr IV.SIG Q1H [facility] Rx#:[id number] Vancomycin Inj 500 MG In NS Inj 100 / 100 100 ML @ 200 mls/hr IV.SIG Q24H [facility] Rx#:[id number] Oral 240 / 240 Output: Urine 600 / 600 Other: # Voids 1 2 Date of Last Bowel Movement 08/15/18 Narrative: GENERAL: No distress. SKIN: Warm and dry. HEAD: Atraumatic. Normocephalic. EYES: Pupils equal and round. No scleral icterus. No injection or drainage. ENT: No nasal bleeding or discharge. Mucous membranes pink and moist. NECK: Trachea midline. No JVD. CARDIOVASCULAR: Regular rate and rhythm. S1-S2 no S3 or S4. RESPIRATORY: No accessory muscle use. Clear to auscultation. Breath sounds equal bilaterally. GASTROINTESTINAL: Abdomen soft, non-tender, nondistended. Hepatic and splenic margins not palpable. MUSCULOSKELETAL: Extremities without clubbing, cyanosis, or edema. No obvious deformities. Left [id number] amputation. Right foot bandaged. NEUROLOGICAL: Awake and alert. No obvious cranial nerve deficits. Motor grossly within normal limits. 4 out of 5 muscle strength in the arms and 4/5 in right leg. Not able to bear weight on the right lower extremity at all. Normal speech. PSYCHIATRIC: Appropriate mood and affect. Results - Labs CBC & Chem 7: 08/17/18 05:57 08/17/18 05:57 Laboratory Results - last 24 hr 08/17/18 08/17/18 05:57 05:57 WBC 11.9 H RBC 3.14 L Hgb 9.1 L Hct 28.2 L MCV 89.9 MCH 29.1 MCHC 32.4 RDW 18.1 H Plt Count 431 MPV 6.4 L Neut % (Auto) 82.1 H Lymph % (Auto) 6.5 L [place] % (Auto) 7.3 Eos % (Auto) 3.2 Baso % (Auto) 0.9 Neut # (Auto) 9.8 H Lymph # (Auto) 0.8 L [place] # (Auto) 0.9 Eos # (Auto) 0.4 Baso # (Auto) 0.1 WBC Differential . Differential Comment Auto diff final Sodium 133 L D Potassium 4.5 D Chloride 105 D Carbon Dioxide 18.0 L Anion Gap 10 BUN 34 H Creatinine 1.85 H Estimated GFR 27 L Random Glucose 98 Calcium 9.7 D Phosphorus 3.9 Magnesium 2.7 H D Microbiology 08/15/18 17:20 Blood - Other Aerobic Blood Culture - Preliminary No growth in 2 days 08/15/18 17:20 Blood - Other Anaerobic Blood Culture - Preliminary No growth in 2 days 08/13/18 09:30 Blood - Peripheral Aerobic Blood Culture - Preliminary No growth in 4 days 08/13/18 09:30 Blood - Peripheral Anaerobic Blood Culture - Preliminary No growth in 4 days 08/13/18 09:11 Blood - Peripheral Aerobic Blood Culture - Preliminary No growth in 4 days 08/13/18 09:11 Blood - Peripheral Anaerobic Blood Culture - Preliminary No growth in 4 days Assessment and Plan - Assessment (1) RADHA (acute kidney injury) Code(s): N17.9 - Acute kidney failure, unspecified Status: Acute (2) Acute UTI Code(s): N39.0 - Urinary tract infection, site not specified Status: Acute (3) Dehydration Code(s): E86.0 - Dehydration Status: Acute (4) Pressure ulcer, hip Code(s): L89.209 - Pressure ulcer of unspecified hip, unspecified stage Status : Acute (5) Severe peripheral arterial disease Code(s): I73.9 - Peripheral vascular disease, unspecified Status: Acute (6) Ulcer of heel Code(s): L97.409 - Non-pressure chronic ulcer of unspecified heel and midfoot with unspecified severity Status: Acute - Plan Urinary tract infection MRSA growing in urine. ID consult appreciated. -IV vanco per ID. Peripheral vascular disease Patient has a history of left AKA. Vascular surgery is currently following the patient. Wound care physician has also been consulted. Wound culture growing MRSA. -Follow up with vascular surgery, currently recommending right AKA. -dressings per wound care. -antibiotics per ID. Renal insufficiency/stage III chronic kidney disease/dehydration Creatinine is about at baseline. -continue on fluid rehydration with IV fluids. -follow BMP and avoid nephrotoxins. Hypocalcemia/Hypomagnesemia/Hypokalemia/Hyponatremia S/t decreased PO intake. -replete IV and monitor. -continue D5NS. -follow BMP. Failure to thrive/protein calorie malnourishment severe S/t gastroparesis. -continue on mirtazapine to help with appetite stimulation. -gastroparesis diet. -add Ensure. -mule developer consult appreciated. MVI added. Coronary artery disease Stable at this time. -continue on Plavix and apixaban. Tobacco abuse Chronic. -recommend smoking cessation. Anemia Chronic. On apixaban. -follow CBC. Stable. -check Hemoccult. PPx: Apixaban Discharge Planning: PT recommends HHC. Need ID and vascular clearance.
[2018-08-17] MEDS ORDERED: amLODIPine 5 MG Tablet PO ONE (13:00)
[2018-08-17] MEDS: Dextrose 5%/NaCl 0.9% Inj 1,000 ML IV.CONT SCH ×2 (13:12→23:24)
[2018-08-17] MEDS: Multivitamin/Minerals Therapeutic Tablet PO SCH (13:12)
[2018-08-17 18:30] LABS: Calcium 8.5 mg/dL (8.5-10.1); Carbon Dioxide 17.6 meq/L (21.0-32.0); Potassium 4.5 meq/L (3.5-5.1)
[2018-08-17] MEDS: Mirtazapine 15 MG Tablet PO SCH (23:21)
[2018-08-18] MEDS: hydrALAZINE 10 MG Tablet PO SCH ×3 (03:09→18:52)
[2018-08-18] MEDS: Acetaminophen/Codeine 300/30 MG Tablet PO PRN (06:16)
[2018-08-18 06:56] LABS: Baso # (Auto) 0.1 th/mm3 (0.0-0.2); Baso % (Auto) 0.8 % (0.0-2.0); Eos # (Auto) 0.3 th/mm3 (0.0-0.4); Eos % (Auto) 2.3 % (0.0-4.0); Hematocrit 29.7 % (35.0-46.0); Hemoglobin 9.6 gm/dL (11.6-15.3); Lymph # (Auto) 0.9 th/mm3 (1.0-4.8); Mean Corpuscular HGB Conc 32.4 % (32.0-36.0); Mean Corpuscular Hemoglobin 28.8 pg (27.0-34.0); Mean Corpuscular Volume 88.9 fL (80.0-100.0); Mean Platelet Volume 6.4 fL (7.0-11.0); Mono # (Auto) 1.1 th/mm3 (0.0-0.9); Mono % (Auto) 8.8 % (0.0-8.0); Neut # (Auto) 10.1 th/mm3 (1.8-7.7); Neut % (Auto) 81.1 % (16.0-70.0); Platelet Count 430 th/mm3 (150-450); Red Blood Count 3.34 mil/mm3 (4.00-5.30); Red Cell Distribution Width 18.1 % (11.6-17.2); White Blood Count 12.5 th/mm3 (4.0-11.0)
[2018-08-18] MEDS: Hydroxychloroquine 200 MG Tablet PO SCH (09:51)
[2018-08-18] MEDS: Multivitamin/Minerals Therapeutic Tablet PO SCH (09:52)
[2018-08-18] MEDS: amLODIPine 10 MG Tablet PO SCH (09:52)
[2018-08-18] MEDS: Senna/Docusate Sodium 8.6/50 MG Tablet PO SCH ×2 (09:52→20:35)
[2018-08-18] MEDS: Sertraline 50 MG Tablet PO SCH (09:52)
[2018-08-18] MEDS: Metoprolol Tartrate 25 MG Tablet PO SCH (12:37)
[2018-08-18] MEDS ORDERED: Pharmacy Ordered Lab Info OTHER ONE (12:45)
[2018-08-18 13:14] LABS: Calcium 8.2 mg/dL (8.5-10.1); Carbon Dioxide 16.5 meq/L (21.0-32.0); Potassium 4.2 meq/L (3.5-5.1)
[2018-08-18 13:16] LABS: Phosphorus 4.2 mg/dL (2.5-4.9)
[2018-08-18 13:17] LABS: Vancomycin,Trough 26.5 mcg/mL (5.0-10.0)
--- NOTE | 2018-08-18 13:34 | P.PNID ---
Subjective Remarks: developped hematuria CT neg for fistula pt reports 1 yr of drainage Antibiotics: vancomycin Allergies/Adverse Reactions: Allergies cephalexin Allergy (Severe, Verified 08/13/18 06:34) rash diatrizoate meglumine Allergy (Severe, Verified 08/13/18 06:34) rash fluconazole Allergy (Severe, Verified 08/13/18 06:34) rash gadobenic acid Allergy (Severe, Verified 08/13/18 06:34) rash gadodiamide Allergy (Severe, Verified 08/13/18 06:34) rash gadoteridol Allergy (Severe, Verified 08/13/18 06:34) rash iodixanol Allergy (Severe, Verified 08/13/18 06:34) rash iohexol Allergy (Severe, Verified 08/13/18 06:34) rash pravastatin Allergy (Severe, Verified 08/13/18 06:34) rash erythromycin base Adverse Reaction (Verified 08/13/18 06:34) Urinary Freq (Inc/Dec) Objective Vital Signs 08/17/18 15:12 08/17/18 16:00 08/17/18 18:31 Temperature 98.7 F Pulse Rate 70 69 Respiratory Rate 16 18 Blood Pressure 176/73 H Pulse Oximetry 93 L 08/17/18 20:00 08/18/18 00:00 08/18/18 04:00 Temperature 99.7 F H 99.9 F H 98.4 F Pulse Rate 78 80 77 Respiratory Rate 15 18 16 Blood Pressure 168/74 H 166/67 H 191/83 H Pulse Oximetry 95 93 L 95 08/18/18 05:15 08/18/18 08:00 Temperature 98.3 F Pulse Rate 80 80 Respiratory Rate 14 Blood Pressure 170/73 H 146/97 H Pulse Oximetry 95 Intake & Output 08/17/18 08/18/18 08/18/18 18:59 06:59 18:59 Intake Total 3150 / 3150 1960 / 1960 Output Total 350 / 350 Balance 3150 / 3150 1610 / 1610 Weight 35.2 kg Intake: IV 3150 / 3150 1000 / 1000 D5W/Normal Saline Inj 1,000 ML 1000 / 1000 @ 100 mls/hr IV.CONT .Q10H TY Rx#:[id number] D5W + KCL 20 mEq Inj 1,000 ML @ 1000 / 1000 125 mls/hr IV.CONT .Q8H TY Rx #:[id number] Sodium Bicarbonate 8.4% Inj 25 2050 / 2050 MEQ In NS Inj 1,000 ML @ 100 mls/hr IV.CONT .[id number] [facility] Rx# :[id number] Vancomycin Inj 500 MG In NS Inj 100 / 100 100 ML @ 200 mls/hr IV.SIG Q24H [facility] Rx#:[id number] Oral 960 / 960 Output: Urine 350 / 350 Other: # Voids 2 2 08/15/18 17:20 Blood - Other Aerobic Blood Culture - Preliminary No growth in 3 days 08/15/18 17:20 Blood - Other Anaerobic Blood Culture - Preliminary No growth in 3 days 08/13/18 09:30 Blood - Peripheral Aerobic Blood Culture - Final No growth in 5 days 08/13/18 09:30 Blood - Peripheral Anaerobic Blood Culture - Final No growth in 5 days 08/13/18 09:11 Blood - Peripheral Aerobic Blood Culture - Final No growth in 5 days 08/13/18 09:11 Blood - Peripheral Anaerobic Blood Culture - Final No growth in 5 days 08/13/18 08:51 Clean Catch Urine Urine Culture - Final S. aureus MRSA 08/13/18 08:20 Wound - Hip Gram Stain - Final 08/13/18 08:20 Wound - Hip Wound Culture - Final S. aureus MRSA Lab - Hematology Results 08/17/18 08/18/18 05:57 06:25 WBC 11.9 H 12.5 H RBC 3.14 L 3.34 L Hgb 9.1 L 9.6 L Hct 28.2 L 29.7 L MCV 89.9 88.9 MCH 29.1 28.8 MCHC 32.4 32.4 RDW 18.1 H 18.1 H Plt Count 431 430 MPV 6.4 L 6.4 L Neut % (Auto) 82.1 H 81.1 H Lymph % (Auto) 6.5 L 7.0 L [place] % (Auto) 7.3 8.8 H Eos % (Auto) 3.2 2.3 Baso % (Auto) 0.9 0.8 Neut # (Auto) 9.8 H 10.1 H Lymph # (Auto) 0.8 L 0.9 L [place] # (Auto) 0.9 1.1 H Eos # (Auto) 0.4 0.3 Baso # (Auto) 0.1 0.1 WBC Differential . . Differential Comment Auto diff final Auto diff final Lab - Chemistry Results 08/17/18 08/17/18 08/18/18 05:57 17:25 12:21 Sodium 133 L D 132 L 134 L Potassium 4.5 D 4.5 4.2 Chloride 105 D 105 106 Carbon Dioxide 18.0 L 17.6 L 16.5 L Anion Gap 10 9 12 BUN 34 H 32 H 30 H Creatinine 1.85 H 1.83 H 1.81 H Estimated GFR 27 L 27 L 27 L Random Glucose 98 94 99 Calcium 9.7 D 8.5 D 8.2 L Phosphorus 3.9 4.2 Magnesium 2.7 H D 2.0 D Imaging: ITS Impressions Hip CT 08/15/18 00:00 CONCLUSION: 1. Previous internal fixation. 2. No definite evidence for osteomyelitis. 3. Old fractures in the pelvis bilaterally. Chest X-Ray 08/15/18 06:00 CONCLUSION: Small bilateral pleural effusions left greater than right. No infiltrate or mass. Physical Exam: GENERAL: NAD frail, cachectic elderly pt SKIN: Warm and dry. no rash HEAD: Atraumatic. Normocephalic. EYES: Pupils equal and round. No scleral icterus. No injection or drainage. ENT: No nasal bleeding or discharge. Mucous membranes pink and moist. NECK: Trachea midline. No JVD. CARDIOVASCULAR: Regular rate and rhythm. RESPIRATORY: No accessory muscle use. Clear to auscultation. Breath sounds decreassed bilaterally. Barrel chaped chest GASTROINTESTINAL: Abdomen soft, non-tender, nondistended. Hepatic and splenic margins not palpable. MUSCULOSKELETAL: Extremities without clubbing, cyanosis, or edema. well healed L AKA R thigh with minimal swelling , small opening draining oderless thick white pus - same amout Prominent muscle bulk loss NEUROLOGICAL: Awake and alert. No obvious cranial nerve deficits. Motor grossly within normal limits. Five out of 5 muscle strength in the arms and legs. Normal speech. PSYCHIATRIC: calm, cooperative Assessment and Plan - Plan UTI, grew MRSA PVD sp L AKA and with R heel chronic ulcer, vascular surgeon recommended R AKA, pt refused R hip drainage x 1 yr probably sinus tract and chronic osteo MRSA clx + - CT wo contrast confirmed intramedullary rina, no s/o osteo or sinus tract Abnormal CXR, can not excude PNA - no infiltrates, just effusions on the CXR CKD Hematuria cont vanco Monitor renal fnx. Will not use dapto, pt reportedly has issues with it in the past ? MRI dw Dr Urena
--- NOTE | 2018-08-18 14:15 | P.PNIM ---
Subjective Interval history: The patient was resting comfortably in bed. Her daughter was at the bedside and was concerned about her confusion. They thought her foot was looking better. Discussed with nursing and infectious disease. Physical Exam Vital signs: Vital Signs 08/17/18 15:12 08/17/18 16:00 08/17/18 18:31 Temperature 98.7 F Pulse Rate 70 69 Respiratory Rate 16 18 Blood Pressure 176/73 H Pulse Oximetry 93 L 08/17/18 20:00 08/18/18 00:00 08/18/18 04:00 Temperature 99.7 F H 99.9 F H 98.4 F Pulse Rate 78 80 77 Respiratory Rate 15 18 16 Blood Pressure 168/74 H 166/67 H 191/83 H Pulse Oximetry 95 93 L 95 08/18/18 05:15 08/18/18 08:00 Temperature 98.3 F Pulse Rate 80 80 Respiratory Rate 14 Blood Pressure 170/73 H 146/97 H Pulse Oximetry 95 Intake & Output 08/17/18 08/18/18 08/18/18 18:59 06:59 18:59 Intake Total 3150 / 3150 1960 / 1960 Output Total 350 / 350 Balance 3150 / 3150 1610 / 1610 Weight 35.2 kg Intake: IV 3150 / 3150 1000 / 1000 D5W/Normal Saline Inj 1,000 ML 1000 / 1000 @ 100 mls/hr IV.CONT .Q10H [facility] Rx#:[id number] D5W + KCL 20 mEq Inj 1,000 ML @ 1000 / 1000 125 mls/hr IV.CONT .Q8H [facility] Rx #:[id number] Sodium Bicarbonate 8.4% Inj 25 2050 / 2050 MEQ In NS Inj 1,000 ML @ 100 mls/hr IV.CONT .[id number] [facility] Rx# :[id number] Vancomycin Inj 500 MG In NS Inj 100 / 100 100 ML @ 200 mls/hr IV.SIG Q24H [facility]Y Rx#:[id number] Oral 960 / 960 Output: Urine 350 / 350 Other: # Voids 2 2 Narrative: GENERAL: No distress. SKIN: Warm and dry. HEAD: Atraumatic. Normocephalic. EYES: Pupils equal and round. No scleral icterus. No injection or drainage. ENT: No nasal bleeding or discharge. Mucous membranes pink and moist. NECK: Trachea midline. No JVD. CARDIOVASCULAR: Regular rate and rhythm. S1-S2 no S3 or S4. RESPIRATORY: No accessory muscle use. Clear to auscultation. Breath sounds equal bilaterally. GASTROINTESTINAL: Abdomen soft, non-tender, nondistended. Hepatic and splenic margins not palpable. MUSCULOSKELETAL: Extremities without clubbing, cyanosis, or edema. No obvious deformities. Left [id number]-tsh-dzot amputation. Right foot bandaged. NEUROLOGICAL: Awake and alert. No obvious cranial nerve deficits. Motor grossly within normal limits. 4 out of 5 muscle strength in the arms and 4/5 in right leg. Not able to bear weight on the right lower extremity at all. Normal speech. Results - Labs CBC & Chem 7: 08/18/18 06:25 08/18/18 12:21 Laboratory Results - last 24 hr 08/17/18 08/18/18 08/18/18 17:25 06:25 12:21 WBC 12.5 H RBC 3.34 L Hgb 9.6 L Hct 29.7 L MCV 88.9 MCH 28.8 MCHC 32.4 RDW 18.1 H Plt Count 430 MPV 6.4 L Neut % (Auto) 81.1 H Lymph % (Auto) 7.0 L [place] % (Auto) 8.8 H Eos % (Auto) 2.3 Baso % (Auto) 0.8 Neut # (Auto) 10.1 H Lymph # (Auto) 0.9 L [place] # (Auto) 1.1 H Eos # (Auto) 0.3 Baso # (Auto) 0.1 WBC Differential . Differential Comment Auto diff final Sodium 132 L 134 L Potassium 4.5 4.2 Chloride 105 106 Carbon Dioxide 17.6 L 16.5 L Anion Gap 9 12 BUN 32 H 30 H Creatinine 1.83 H 1.81 H Estimated GFR 27 L 27 L Random Glucose 94 99 Calcium 8.5 D 8.2 L Phosphorus 4.2 Magnesium 2.0 D Vancomycin Trough 26.5 H Microbiology 08/15/18 17:20 Blood - Other Aerobic Blood Culture - Preliminary No growth in 3 days 08/15/18 17:20 Blood - Other Anaerobic Blood Culture - Preliminary No growth in 3 days 08/13/18 09:30 Blood - Peripheral Aerobic Blood Culture - Final No growth in 5 days 08/13/18 09:30 Blood - Peripheral Anaerobic Blood Culture - Final No growth in 5 days 08/13/18 09:11 Blood - Peripheral Aerobic Blood Culture - Final No growth in 5 days 08/13/18 09:11 Blood - Peripheral Anaerobic Blood Culture - Final No growth in 5 days Assessment and Plan - Assessment (1) RADHA (acute kidney injury) Code(s): N17.9 - Acute kidney failure, unspecified Status: Acute (2) Acute UTI Code(s): N39.0 - Urinary tract infection, site not specified Status: Acute (3) Dehydration Code(s): E86.0 - Dehydration Status: Acute (4) Pressure ulcer, hip Code(s): L89.209 - Pressure ulcer of unspecified hip, unspecified stage Status : Acute (5) Severe peripheral arterial disease Code(s): I73.9 - Peripheral vascular disease, unspecified Status: Acute (6) Ulcer of heel Code(s): L97.409 - Non-pressure chronic ulcer of unspecified heel and midfoot with unspecified severity Status: Acute - Plan Urinary tract infection MRSA growing in urine. ID consult appreciated. -IV vanco per ID. Peripheral vascular disease Patient has a history of left AKA. Vascular surgery is currently following the patient. Wound care physician has also been consulted. Wound culture growing MRSA. -Follow up with vascular surgery, currently recommending right AKA. -dressings per wound care. -antibiotics per ID. ID concerned about right hip instrumentation. Considering MRI. Renal insufficiency/stage III chronic kidney disease/dehydration Creatinine is about at baseline. -follow BMP and avoid nephrotoxins. Hypocalcemia/Hypomagnesemia/Hypokalemia/Hyponatremia S/t decreased PO intake. Improved. -monitor. Failure to thrive/protein calorie malnourishment severe S/t gastroparesis. -continue on mirtazapine to help with appetite stimulation. -gastroparesis diet. -add Ensure. -poll watcher consult appreciated. MVI added. Coronary artery disease Stable at this time. -continue on Plavix and apixaban. Tobacco abuse Chronic. -recommend smoking cessation. Anemia Chronic. On apixaban. -follow CBC. Stable. -check Hemoccult. PPx: Apixaban Discharge Planning: PT recommends HHC. Need ID and vascular clearance.
[2018-08-18] MEDS: Mirtazapine 15 MG Tablet PO SCH (20:35)
[2018-08-18] MEDS: Dextrose 5%/NaCl 0.9% Inj 1,000 ML IV.CONT SCH (21:40)
[2018-08-19] MEDS: Metoprolol Tartrate 25 MG Tablet PO SCH ×3 (00:08→23:03)
[2018-08-19] MEDS: Acetaminophen/Codeine 300/30 MG Tablet PO PRN ×4 (00:12→17:11)
[2018-08-19] MEDS: hydrALAZINE 10 MG Tablet PO SCH ×3 (05:41→18:15)
[2018-08-19] MEDS: Senna/Docusate Sodium 8.6/50 MG Tablet PO SCH ×2 (09:30→23:04)
[2018-08-19] MEDS: Sertraline 50 MG Tablet PO SCH (09:31)
[2018-08-19] MEDS: amLODIPine 10 MG Tablet PO SCH (09:31)
[2018-08-19] MEDS: Multivitamin/Minerals Therapeutic Tablet PO SCH (09:31)
[2018-08-19] MEDS: Hydroxychloroquine 200 MG Tablet PO SCH (09:31)
[2018-08-19 09:41] LABS: Baso # (Auto) 0.1 th/mm3 (0.0-0.2); Baso % (Auto) 0.7 % (0.0-2.0); Eos # (Auto) 0.1 th/mm3 (0.0-0.4); Eos % (Auto) 0.7 % (0.0-4.0); Hematocrit 29.8 % (35.0-46.0); Hemoglobin 9.5 gm/dL (11.6-15.3); Lymph # (Auto) 0.8 th/mm3 (1.0-4.8); Lymph % (Auto) 4.9 % (9.0-44.0); Mean Corpuscular HGB Conc 31.8 % (32.0-36.0); Mean Corpuscular Hemoglobin 28.7 pg (27.0-34.0); Mean Corpuscular Volume 90.3 fL (80.0-100.0); Mean Platelet Volume 6.5 fL (7.0-11.0); Mono % (Auto) 6.2 % (0.0-8.0); Neut # (Auto) 14.3 th/mm3 (1.8-7.7); Neut % (Auto) 87.5 % (16.0-70.0); Platelet Count 389 th/mm3 (150-450); Red Cell Distribution Width 17.7 % (11.6-17.2); White Blood Count 16.3 th/mm3 (4.0-11.0)
[2018-08-19 10:20] LABS: Potassium 4.4 meq/L (3.5-5.1)
--- NOTE | 2018-08-19 11:26 | P.PNIM ---
Subjective Interval history: The patient was resting comfortably in bed. Her daughter was at the bedside. The patient was not eating much. The patient and her daughter would prefer to try a peripheral IV prior to trying a central line. Discussed with nursing. Physical Exam Vital signs: Vital Signs 08/18/18 16:00 08/18/18 20:00 08/19/18 00:00 Temperature 98.0 F 98.0 F 97.7 F Pulse Rate 74 84 92 H Respiratory Rate 16 18 18 Blood Pressure 149/65 H 156/76 H 164/74 H Pulse Oximetry 97 97 08/19/18 04:00 08/19/18 06:51 08/19/18 08:00 Temperature 98.0 F 98.1 F Pulse Rate 81 89 87 Respiratory Rate 18 14 Blood Pressure 174/78 H 160/72 H 160/70 H Pulse Oximetry 94 L 96 Intake & Output 08/18/18 08/19/18 08/19/18 18:59 06:59 18:59 Intake Total 740 / 740 Balance 740 / 740 Weight 33.3 kg Intake: IV 500 / 500 D5W/Normal Saline Inj 1,000 ML 500 / 500 @ 100 mls/hr IV.CONT .Q10H [facility] Rx#:[id number] Oral 240 / 240 Other: # Incontinent Voids 2 Date of Last Bowel Movement 08/15/18 08/17/18 Narrative: GENERAL: No distress. SKIN: Warm and dry. HEAD: Atraumatic. Normocephalic. EYES: Pupils equal and round. No scleral icterus. No injection or drainage. ENT: No nasal bleeding or discharge. Mucous membranes pink and moist. NECK: Trachea midline. No JVD. CARDIOVASCULAR: Regular rate and rhythm. S1-S2 no S3 or S4. RESPIRATORY: No accessory muscle use. Clear to auscultation. Breath sounds equal bilaterally. GASTROINTESTINAL: Abdomen soft, non-tender, nondistended. Hepatic and splenic margins not palpable. MUSCULOSKELETAL: Extremities without clubbing, cyanosis, or edema. No obvious deformities. Left tukoh-mnt-zspr amputation. Right foot bandaged. NEUROLOGICAL: Awake and alert. No obvious cranial nerve deficits. Motor grossly within normal limits. 4 out of 5 muscle strength in the arms and 4/5 in right leg. Not able to bear weight on the right lower extremity at all. Normal speech. Results - Labs CBC & Chem 7: 08/19/18 08:54 08/19/18 08:54 Laboratory Results - last 24 hr 08/18/18 08/19/18 08/19/18 12:21 08:54 08:54 WBC 16.3 H RBC 3.30 L Hgb 9.5 L Hct 29.8 L MCV 90.3 MCH 28.7 MCHC 31.8 L RDW 17.7 H Plt Count 389 MPV 6.5 L Neut % (Auto) 87.5 H Lymph % (Auto) 4.9 L [place] % (Auto) 6.2 Eos % (Auto) 0.7 Baso % (Auto) 0.7 Neut # (Auto) 14.3 H Lymph # (Auto) 0.8 L [place] # (Auto) 1.0 H Eos # (Auto) 0.1 Baso # (Auto) 0.1 WBC Differential . Differential Comment Auto diff final Sodium 134 L 136 Potassium 4.2 4.4 Chloride 106 108 H Carbon Dioxide 16.5 L 16.0 L Anion Gap 12 12 BUN 30 H 37 H Creatinine 1.81 H 1.89 H Estimated GFR 27 L 26 L POC Glucose Random Glucose 99 48 L* Calcium 8.2 L 8.0 L Phosphorus 4.2 4.0 Magnesium 2.0 D 2.0 Vancomycin Trough 26.5 H Random Vancomycin 21.0 08/19/18 10:35 WBC RBC Hgb Hct MCV MCH MCHC RDW Plt Count MPV Neut % (Auto) Lymph % (Auto) [place] % (Auto) Eos % (Auto) Baso % (Auto) Neut # (Auto) Lymph # (Auto) [place] # (Auto) Eos # (Auto) Baso # (Auto) WBC Differential Differential Comment Sodium Potassium Chloride Carbon Dioxide Anion Gap BUN Creatinine Estimated GFR POC Glucose 51 L Random Glucose Calcium Phosphorus Magnesium Vancomycin Trough Random Vancomycin Microbiology 08/15/18 17:20 Blood - Other Aerobic Blood Culture - Preliminary No growth in 4 days 08/15/18 17:20 Blood - Other Anaerobic Blood Culture - Preliminary No growth in 4 days 08/18/18 17:40 Stool Stool Occult Blood (DAJA) - Final Hemoccult positive 08/13/18 09:30 Blood - Peripheral Aerobic Blood Culture - Final No growth in 5 days 08/13/18 09:30 Blood - Peripheral Anaerobic Blood Culture - Final No growth in 5 days 08/13/18 09:11 Blood - Peripheral Aerobic Blood Culture - Final No growth in 5 days 08/13/18 09:11 Blood - Peripheral Anaerobic Blood Culture - Final No growth in 5 days Assessment and Plan - Assessment (1) RADHA (acute kidney injury) Code(s): N17.9 - Acute kidney failure, unspecified Status: Acute (2) Acute UTI Code(s): N39.0 - Urinary tract infection, site not specified Status: Acute (3) Dehydration Code(s): E86.0 - Dehydration Status: Acute (4) Pressure ulcer, hip Code(s): L89.209 - Pressure ulcer of unspecified hip, unspecified stage Status : Acute (5) Severe peripheral arterial disease Code(s): I73.9 - Peripheral vascular disease, unspecified Status: Acute (6) Ulcer of heel Code(s): L97.409 - Non-pressure chronic ulcer of unspecified heel and midfoot with unspecified severity Status: Acute - Plan Urinary tract infection MRSA growing in urine. ID consult appreciated. -IV vanco per ID. Peripheral vascular disease Patient has a history of left AKA. Vascular surgery is currently following the patient. Wound care physician has also been consulted. Wound culture growing MRSA. -Follow up with vascular surgery, currently recommending right AKA. -dressings per wound care. -antibiotics per ID. ID concerned about right hip instrumentation. Considering MRI. Renal insufficiency/stage III chronic kidney disease/dehydration Creatinine is about at baseline. -follow BMP and avoid nephrotoxins. Hypocalcemia/Hypomagnesemia/Hypokalemia/Hyponatremia S/t decreased PO intake. Improved. -monitor. Failure to thrive/protein calorie malnourishment severe S/t gastroparesis. -continue on mirtazapine to help with appetite stimulation. -gastroparesis diet. -add Ensure. -garnisher consult appreciated. MVI added. Coronary artery disease Stable at this time. -continue on Plavix and apixaban. Tobacco abuse Chronic. -recommend smoking cessation. Anemia Chronic. On apixaban. -follow CBC. Stable. -check Hemoccult. Poor IV access S/t vascular disease. -central line if unable to obtain peripheral access. Hypoglycemia S/t decreased PO intake. -encourage nutrition. -D5NS. PPx: Apixaban Discharge Planning: PT recommends HHC. Need ID and vascular clearance.
[2018-08-19] MEDS: Dextrose 5%/NaCl 0.9% Inj 1,000 ML IV.CONT SCH (14:23)
[2018-08-19] MEDS ORDERED: Vancomycin Inj 500 MG in Sodium Chlor 0.9% Inj 100 ML IV.SIG ONE (16:00)
[2018-08-19] MEDS: Mirtazapine 15 MG Tablet PO SCH (23:03)
[2018-08-20] MEDS: hydrALAZINE 10 MG Tablet PO SCH ×3 (04:14→18:01)
[2018-08-20] MEDS: Acetaminophen/Codeine 300/30 MG Tablet PO PRN ×2 (04:14→22:52)
[2018-08-20 05:37] LABS: Baso # (Auto) 0.1 th/mm3 (0.0-0.2); Baso % (Auto) 0.7 % (0.0-2.0); Eos # (Auto) 0.3 th/mm3 (0.0-0.4); Eos % (Auto) 2.3 % (0.0-4.0); Hematocrit 28.5 % (35.0-46.0); Hemoglobin 9.2 gm/dL (11.6-15.3); Lymph # (Auto) 0.9 th/mm3 (1.0-4.8); Lymph % (Auto) 5.8 % (9.0-44.0); Mean Corpuscular HGB Conc 32.2 % (32.0-36.0); Mean Platelet Volume 6.5 fL (7.0-11.0); Mono # (Auto) 1.2 th/mm3 (0.0-0.9); Neut # (Auto) 12.4 th/mm3 (1.8-7.7); Neut % (Auto) 83.2 % (16.0-70.0); Platelet Count 370 th/mm3 (150-450); Red Blood Count 3.17 mil/mm3 (4.00-5.30); Red Cell Distribution Width 17.4 % (11.6-17.2); White Blood Count 14.8 th/mm3 (4.0-11.0)
[2018-08-20 05:55] LABS: Calcium 7.5 mg/dL (8.5-10.1); Carbon Dioxide 16.3 meq/L (21.0-32.0); Magnesium 2.2 mg/dL (1.5-2.5); Phosphorus 3.9 mg/dL (2.5-4.9); Potassium 4.3 meq/L (3.5-5.1)
[2018-08-20] MEDS: amLODIPine 10 MG Tablet PO SCH (08:44)
[2018-08-20] MEDS: Senna/Docusate Sodium 8.6/50 MG Tablet PO SCH ×2 (08:45→20:03)
[2018-08-20] MEDS: Multivitamin/Minerals Therapeutic Tablet PO SCH (08:45)
[2018-08-20] MEDS: Sertraline 50 MG Tablet PO SCH (08:45)
[2018-08-20] MEDS: Hydroxychloroquine 200 MG Tablet PO SCH (08:45)
--- NOTE | 2018-08-20 10:17 | P.PNVS ---
Subjective Subjective/Hospital Course: 73/F alert in NAD Wound to R hip improved Pt refusing to have R foot examined Dressing to R foot intact clean and dry Pt reported R foot continues w/ pain Objective Vital Signs / I&O: Vital Signs 08/19/18 12:00 08/19/18 14:20 08/19/18 16:00 Temperature 98.2 F 98.9 F Pulse Rate 80 74 Respiratory Rate 18 4 L 18 Blood Pressure 129/62 139/63 Pulse Oximetry 97 96 08/19/18 20:00 08/20/18 00:00 08/20/18 04:00 Temperature 97.6 F 98.4 F 97.8 F Pulse Rate 76 76 81 Respiratory Rate 18 18 14 Blood Pressure 124/58 L 139/67 157/70 H Pulse Oximetry 95 95 96 08/20/18 08:00 Temperature 98.2 F Pulse Rate 58 L Respiratory Rate 20 Blood Pressure 150/73 H Pulse Oximetry 89 L Intake & Output 08/19/18 08/20/18 08/20/18 18:59 06:59 18:59 Weight 32.5 kg Other: Date of Last Bowel Movement 08/19/18 08/19/18 08/19/18 Physical Exam: 73/F A&OX3, GCS 15 Speech Clear Resp even +S1,S2 Dressing to R foot I/C/D Non palpable R DP/PT Wound to R hip improving L AKA incision healed Laboratory Results - last 24 hr 08/19/18 08/19/18 08/19/18 08:54 10:35 11:27 WBC RBC Hgb Hct MCV MCH MCHC RDW Plt Count MPV Neut % (Auto) Lymph % (Auto) [place] % (Auto) Eos % (Auto) Baso % (Auto) Neut # (Auto) Lymph # (Auto) [place] # (Auto) Eos # (Auto) Baso # (Auto) WBC Differential Differential Comment Sodium 136 Potassium 4.4 Chloride 108 H Carbon Dioxide 16.0 L Anion Gap 12 BUN 37 H Creatinine 1.89 H Estimated GFR 26 L POC Glucose 51 L 75 Random Glucose 48 L* Calcium 8.0 L Phosphorus 4.0 Magnesium 2.0 Random Vancomycin 21.0 08/19/18 08/20/18 08/20/18 18:21 04:37 04:37 WBC 14.8 H RBC 3.17 L Hgb 9.2 L Hct 28.5 L MCV 90.0 MCH 29.0 MCHC 32.2 RDW 17.4 H Plt Count 370 MPV 6.5 L Neut % (Auto) 83.2 H Lymph % (Auto) 5.8 L [place] % (Auto) 8.0 Eos % (Auto) 2.3 Baso % (Auto) 0.7 Neut # (Auto) 12.4 H Lymph # (Auto) 0.9 L [place] # (Auto) 1.2 H Eos # (Auto) 0.3 Baso # (Auto) 0.1 WBC Differential . Differential Comment Auto diff final Sodium 140 Potassium 4.3 Chloride 110 H Carbon Dioxide 16.3 L Anion Gap 14 BUN 36 H Creatinine 1.92 H Estimated GFR 26 L POC Glucose 211 H Random Glucose 82 Calcium 7.5 L Phosphorus 3.9 Magnesium 2.2 Random Vancomycin 08/20/18 08:13 WBC RBC Hgb Hct MCV MCH MCHC RDW Plt Count MPV Neut % (Auto) Lymph % (Auto) [place] % (Auto) Eos % (Auto) Baso % (Auto) Neut # (Auto) Lymph # (Auto) [place] # (Auto) Eos # (Auto) Baso # (Auto) WBC Differential Differential Comment Sodium Potassium Chloride Carbon Dioxide Anion Gap BUN Creatinine Estimated GFR POC Glucose 94 Random Glucose Calcium Phosphorus Magnesium Random Vancomycin Microbiology 08/15/18 17:20 Aerobic Blood Culture - Preliminary Blood - Other No growth in 4 days Anaerobic Blood Culture - Preliminary No growth in 4 days Assessment and Plan - Plan 73/F with a PMH of severe PAD Pt underwent a L AKA on 05/22/18 Pt w/ Severe R LE arterial occlusive disease with worsening tissue loss Unfortunately R LE is not limb salvageable Plan Recommend continued medical management (anticoagulation/Statin therapy) Continue pain control Continue wound care per the wound care team Recommend R AKA when pt is ready Arranged out pt f/u in a few week Ceci Baptiste NP [facility] [phone] Discharge Planning: Pt clear for D/C from a vascular standpoint Arranged out pt F/U
[2018-08-20] MEDS: Metoprolol Tartrate 25 MG Tablet PO SCH ×2 (11:21→23:55)
--- NOTE | 2018-08-20 11:30 | P.PNIM ---
Subjective Interval history: The patient was being changed. Her family was at the bedside. The patient said that she wanted to go home on Monday. She had no acute complaints. She said she was eating little. Discussed with nursing at the bedside. Physical Exam Vital signs: Vital Signs 08/19/18 12:00 08/19/18 14:20 08/19/18 16:00 Temperature 98.2 F 98.9 F Pulse Rate 80 74 Respiratory Rate 18 4 L 18 Blood Pressure 129/62 139/63 Pulse Oximetry 97 96 08/19/18 20:00 08/20/18 00:00 08/20/18 04:00 Temperature 97.6 F 98.4 F 97.8 F Pulse Rate 76 76 81 Respiratory Rate 18 18 14 Blood Pressure 124/58 L 139/67 157/70 H Pulse Oximetry 95 95 96 08/20/18 08:00 Temperature 98.2 F Pulse Rate 58 L Respiratory Rate 20 Blood Pressure 150/73 H Pulse Oximetry 89 L Intake & Output 08/19/18 08/20/18 08/20/18 18:59 06:59 18:59 Weight 32.5 kg Other: Date of Last Bowel Movement 08/19/18 08/19/18 08/19/18 Narrative: GENERAL: No distress. SKIN: Warm and dry. HEAD: Atraumatic. Normocephalic. EYES: Pupils equal and round. No scleral icterus. No injection or drainage. ENT: No nasal bleeding or discharge. Mucous membranes pink and moist. NECK: Trachea midline. No JVD. CARDIOVASCULAR: Regular rate and rhythm. S1-S2 no S3 or S4. RESPIRATORY: No accessory muscle use. Clear to auscultation. Breath sounds equal bilaterally. GASTROINTESTINAL: Abdomen soft, non-tender, nondistended. Hepatic and splenic margins not palpable. MUSCULOSKELETAL: Extremities without clubbing, cyanosis, or edema. No obvious deformities. Left [id number] amputation. Right foot bandaged. NEUROLOGICAL: Awake and alert. No obvious cranial nerve deficits. Motor grossly within normal limits. 4 out of 5 muscle strength in the arms and 4/5 in right leg. Not able to bear weight on the right lower extremity at all. Normal speech. Results - Labs CBC & Chem 7: 08/20/18 04:37 08/20/18 04:37 Laboratory Results - last 24 hr 08/19/18 08/19/18 08/20/18 11:27 18:21 04:37 WBC 14.8 H RBC 3.17 L Hgb 9.2 L Hct 28.5 L MCV 90.0 MCH 29.0 MCHC 32.2 RDW 17.4 H Plt Count 370 MPV 6.5 L Neut % (Auto) 83.2 H Lymph % (Auto) 5.8 L [place] % (Auto) 8.0 Eos % (Auto) 2.3 Baso % (Auto) 0.7 Neut # (Auto) 12.4 H Lymph # (Auto) 0.9 L [place] # (Auto) 1.2 H Eos # (Auto) 0.3 Baso # (Auto) 0.1 WBC Differential . Differential Comment Auto diff final Sodium Potassium Chloride Carbon Dioxide Anion Gap BUN Creatinine Estimated GFR POC Glucose 75 211 H Random Glucose Calcium Phosphorus Magnesium 08/20/18 08/20/18 04:37 08:13 WBC RBC Hgb Hct MCV MCH MCHC RDW Plt Count MPV Neut % (Auto) Lymph % (Auto) [place] % (Auto) Eos % (Auto) Baso % (Auto) Neut # (Auto) Lymph # (Auto) [place] # (Auto) Eos # (Auto) Baso # (Auto) WBC Differential Differential Comment Sodium 140 Potassium 4.3 Chloride 110 H Carbon Dioxide 16.3 L Anion Gap 14 BUN 36 H Creatinine 1.92 H Estimated GFR 26 L POC Glucose 94 Random Glucose 82 Calcium 7.5 L Phosphorus 3.9 Magnesium 2.2 Microbiology 08/15/18 17:20 Blood - Other Aerobic Blood Culture - Final No growth in 5 days 08/15/18 17:20 Blood - Other Anaerobic Blood Culture - Final No growth in 5 days Assessment and Plan - Assessment (1) RADHA (acute kidney injury) Code(s): N17.9 - Acute kidney failure, unspecified Status: Acute (2) Acute UTI Code(s): N39.0 - Urinary tract infection, site not specified Status: Acute (3) Dehydration Code(s): E86.0 - Dehydration Status: Acute (4) Pressure ulcer, hip Code(s): L89.209 - Pressure ulcer of unspecified hip, unspecified stage Status : Acute (5) Severe peripheral arterial disease Code(s): I73.9 - Peripheral vascular disease, unspecified Status: Acute (6) Ulcer of heel Code(s): L97.409 - Non-pressure chronic ulcer of unspecified heel and midfoot with unspecified severity Status: Acute - Plan Urinary tract infection MRSA growing in urine. ID consult appreciated. -IV vanco per ID. Peripheral vascular disease Patient has a history of left AKA. Vascular surgery is currently following the patient. Wound care physician has also been consulted. Wound culture growing MRSA. -Follow up with vascular surgery, currently recommending right AKA. -dressings per wound care. -antibiotics per ID. ID concerned about right hip instrumentation. Considering MRI. -palliative care consulted to help clarify goals of care. Renal insufficiency/stage III chronic kidney disease/dehydration Creatinine is about at baseline. -follow BMP as needed and avoid nephrotoxins. Hypocalcemia/Hypomagnesemia/Hypokalemia/Hyponatremia S/t decreased PO intake. Improved. -monitor. Failure to thrive/protein calorie malnourishment severe S/t gastroparesis. -continue on mirtazapine to help with appetite stimulation. -gastroparesis diet. -Zofran with meals. -add Ensure. -senior analyst developer consult appreciated. MVI added. Coronary artery disease Stable at this time. -continue on Plavix and apixaban. Tobacco abuse Chronic. -recommend smoking cessation. Anemia Chronic. On apixaban. Hemoccult positive. -follow CBC. Stable. -consider GI work-up as outpt as hemoglobin is stable. Poor IV access S/t vascular disease. -central line if unable to obtain peripheral access. Hypoglycemia S/t decreased PO intake. -encourage nutrition. -D5NS. PPx: Apixaban Discharge Planning: PT recommends HHC. Need ID and vascular clearance.
--- NOTE | 2018-08-20 12:02 | P.CONPAL ---
Consult Service: Palliative Care Requesting Physician: Rakesh Urena Reason for Consult: a. To assist with evaluation and management of symptoms including: Pain, decreased oral intake, debility b. To assist medical decision maker(s) with: better understanding of current medical conditions; weighing benefits/burdens of medical treatment options; making medical treatment decisions. Primary Care Provider: UNKNOWN History of Present Illness History of Present Illness: Mrs. Plaza is a 73 years old female with a medical history significant for peripheral vascular disease status post left AKA, chronic wounds to right ankle and right hip, coronary artery disease, anemia, CHF, lupus, hypertension, osteoporosis, and renal insufficiency. Patient presented to the ER on 08/13/18 in the company of her family with complaints of weakness, dizziness in the past 36 hours prior to presentation ER. Patient also reported increased urination and right hip wound drainage in the ER. She denied nausea/vomiting and abdominal pain. Patient endorsed feeling fatigued in the emergency room. Mrs. Padron is known to palliative care. His last hospitalization was in April,. Severe PVD and she underwent left above-knee amputation on 05/22/18. ER course: * Vital signs: Temperature 97.5F, pulse 72, respirations 17, blood pressure 147 /65. * Laboratory workup revealed WBC 9.0, hemoglobin 10.5, hematocrit 33.1, platelet count 124, sodium 132, potassium 4.3, BUN/creatinine 74/2.50, total protein 7.3, albumin 2.6, troponin 0 0.02. * Urinalysis positive for large leukocyte esterase-culture indicated-positive for Staphylococcus aureus MRSA * Patient started on Cipro * Wound culture to right hip positive for Staphylococcus aureus MRSA * Chest x-ray revealed chronic interstitial changes and pleural calcifications. * Patient admitted for further evaluation and [facility] Wound care Dr. Betancourt consulted on 08/14/18 for evaluation and management of heel ulcer and right hip ulcer. Cardiovascular surgeon Dr. Serrano consulted on 08/14/18 for evaluation and management of right lower extremity chronic wound, recommended right above-knee amputation due to unreconstructable disease. Infectious disease Dr. eFlipe consulted on 08/14/18 for evaluation and management of patient with MRSA urinary tract infection, recommended continuing with vancomycin, changing Cipro to Levaquin and repeat chest x-ray. Hip CT on revealed no definite evidence for osteomyelitis. Repeat chest x-ray on 08/15 showed small bilateral pleural effusions left greater than right. Clinical course complicated with renal insufficiency, chronic wounds to right lower extremity with unreconstructable disease, pain, severe protein calorie malnourishment. Palliative care consulted to assist with symptom management and clarification of goals of medical treatment. Workup today revealing WBC 14.8, hemoglobin 9.2, hematocrit 28.5, platelet count 370, potassium 4.3, BUN/creatinine 36/1.92. Patient is afebrile, vital signs stable. Patient seen and examined in his room in the presence of a daughter Zo Plaza who is here alternate healthcare surrogate. Patient's daughter Sacha Dlae who is a healthcare surrogate joined later during visit. Patient is alert, oriented to self, place and situation. Patient appears to have insight regarding her medical condition and is able to weigh benefits and burdens of treatment. Obtained past medical history and psychosocial history. Patient narrated events leading to this hospitalization. Patient states that she has been doing very well after her hospitalization in April and in the past week she felt weak and fatigued. Patient`s daughter reported that patient has altered mentation on the day they brought her into the hospital. Addressed CODE STATUS, CPR complications, limitations and benefits. Patient elected no code DNR/DNI. Patient's daughters are supportive of patient's decision. Patient has completed Health care surrogate form before and does not want to make changes. Discussed ongoing complications with wounds to right lower extremity in discussion with vascular surgeon regarding recommendations. Patient is agreeable to amputation of her right lower extremity though she feels at this time she is not strong enough to go through surgery. Expressed concern that infection might be persistent and may lead to sepsis. She is agreeable to following with Dr. Serrano after discharge and planning on amputation. Patient also wants to be discharged home with physical therapy and home health care not to a rehabilitation facility. Provide patient`s daughters with copies of HCS forms from prior hospitalization. Function/Cognitive Trajectory: Patient's last hospitalization was in April/2018 and she underwent a left above knee amputation and was discharged to [place] inpatient rehab. She was discharged after 3 weeks with home health physical therapy. Patient was able to transfer with minimum assistance from bed to wheelchair. Patient has had 6 hospitalization in 2018 only. She has also had multiple hospitalizations since April 2017. Prior to amputation in April 2018, patient was mostly wheel chair bound for the past 10 years and she was only able to ambulate a few steps with a walker. Past Surgical History Bilateral hip surgeries Right ankle ORIF surgery Cardiac catheterization with stent placement Parathyroidectomy-1999 IVC filter placement Iliac stent placement-2016 Colonoscopy Left wrist surgery Venous thrombectomy Femoropopliteal bypass Tubal ligation PEG tube placement -10 yrs ago Family History Mother -had heart disease Father had unknown type of cancer and CAD Review of Systems Constitutional: Reports lack of energy, Reports weakness, Reports weight loss Eyes: Denies loss of vision Ears, Nose, Mouth, and Throat: Denies abnormal hearing, Denies dry mouth, Denies nasal congestion, Denies pain with swallowing Cardiovascular: Reports foot swelling, Reports leg swelling, Denies chest pain, Denies shortness of breath Respiratory: Denies chest congestion, Denies cough, Denies shortness of breath with activity Gastrointestinal: Reports loose stools, Reports nausea, Denies constipation, Denies difficulty swallowing Genitourinary: Denies blood in urine Musculoskeletal: Reports decreased muscle mass, Reports muscle weakness, Reports radiating pain into limb Skin/Breast: Reports non-healing lesions, Reports sores, Reports unusual bruising Neurologic: Reports confusion (intermittent) Hematologic/Lymphatic: Reports easy bruising PMFSH - History History Provided By: Patient, Family Member, Medical Record - Medical History Medical History: Medical History (Last Updated 08/20/18 @ 11:20 by Haris Reyes) Anemia Anxiety Chronic kidney disease, stage III (moderate) Coronary artery disease Depression Dysphagia Failure to thrive HBP (high blood pressure) History of colon polyps Hyperlipidemia Lupus Nephrolithiasis Noncompliance Osteoporosis Peripheral vascular disease Peripheral vascular disease of lower extremity with ulceration Personal history of (healed) traumatic fracture Presence of other vascular implants and grafts Protein-calorie malnutrition, severe - Surgical History Surgical History: Surgical History (Last Updated 08/20/18 @ 11:20 by Haris Reyes) H/O cardiac catheterization H/O parathyroidectomy History of amputation of extremity History of colonoscopy History of hip surgery Hx of heart artery stent S/P femoral-popliteal bypass surgery - Family History Family History: Family History (Last Updated 08/20/18 @ 11:22 by Haris Reyes) Mother Heart disease Father Coronary artery disease Cancer - Tobacco History Second Hand Smoke Exposure: No Tobacco Use In Past 30 Days: No Smoking Status: Former smoker Tobacco Type: Cigarettes, Pipe, Cigars - Alcohol History How Often Do You Have a Drink Containing Alcohol: 4 or more times a week - Substance Use History Substance History: No History of Abuse - Travel History History of Recent Travel: No Recent Travel in the [place] Within the Last 8 Weeks: No Recent Travel Out of the Country Within the Last 8 Weeks: No - Immunization History Tetanus Immunization: >5 Years Hx Influenza Vaccine This Season: No Medications and Allergies Active Medications: Active Medications Acetaminophen (Tylenol) 650 mg PO Q4H PRN PRN Reason: Temp > 100.4 Acetaminophen/Codeine Phosphate (Tylenol W/Cod #3) 1 tab PO Q4HR PRN PRN Reason: PAIN SCALE 1 TO 10 Last Admin: 08/20/18 04:14 Dose: 1 tab Al Hydroxide/Mg Hydroxide (Milk Of Magnesia Liq) 30 ml PO Q12H PRN PRN Reason: Mild Constipation Amlodipine Besylate (Norvasc) 10 mg PO DAILY ON LICENSE OF [facility] Last Admin: 08/20/18 08:44 Dose: 10 mg Apixaban (Eliquis) 5 mg PO BID ON LICENSE OF [facility] Last Admin: 08/20/18 08:44 Dose: 5 mg Bisacodyl (Dulcolax Supp) 10 mg RECTAL DAILY PRN PRN Reason: SEVERE CONSITIPATION Clopidogrel Bisulfate (Plavix) 75 mg PO DAILY ON LICENSE OF [facility] Last Admin: 08/20/18 08:45 Dose: 75 mg Hydralazine HCl (Apresoline) 10 mg PO Q8H ON LICENSE OF [facility] Last Admin: 08/20/18 04:14 Dose: 10 mg Hydroxychloroquine Sulfate (Plaquenil) 200 mg PO DAILY ON LICENSE OF [facility] Last Admin: 08/20/18 08:45 Dose: 200 mg Levofloxacin/Dextrose (Levaquin 750 Mg Premix Inj) 150 mls @ 100 mls/hr IV.SIG Q48H ON LICENSE OF [facility] Last Admin: 08/19/18 03:45 Dose: Not Given Dextrose/Sodium Chloride (D5w/Normal Saline Inj) 1,000 mls @ 42 mls/hr IV.CONT .[id number] ON LICENSE OF [facility] Last Admin: 08/19/18 14:23 Dose: 42 mls/hr Lactulose (Lactulose Liq) 30 ml PO DAILY PRN PRN Reason: SEVERE CONSITIPATION Lanthanum Carbonate (Fosrenol Chewable) 500 mg PO TID ON LICENSE OF [facility] Last Admin: 08/19/18 20:53 Dose: Not Given Meclizine HCl (Antivert) 25 mg PO Q6H PRN PRN Reason: NAUSEA OR DIZZINESS Last Admin: 08/17/18 08:07 Dose: 25 mg Metoprolol Tartrate (Lopressor) 25 mg PO Q12H ON LICENSE OF [facility] Last Admin: 08/19/18 23:03 Dose: 25 mg Mirtazapine (Remeron) 30 mg PO HS ON LICENSE OF [facility] Last Admin: 08/19/18 23:03 Dose: 30 mg Morphine Sulfate (Morphine Inj) 2 mg IV.PUSH Q4H PRN PRN Reason: dressing changes Last Admin: 08/17/18 23:17 Dose: 2 mg Multivitamins/Minerals (Theragran-M) 1 tab PO DAILY ON LICENSE OF [facility] Last Admin: 08/20/18 08:45 Dose: 1 tab Naloxone HCl (Narcan Inj) 0.4 mg IV.PUSH UNSCH PRN PRN Reason: SEE LABEL COMMENTS Ondansetron HCl (Zofran Inj) 4 mg IV.PUSH TIDAC ON LICENSE OF [facility] Last Admin: 08/20/18 08:44 Dose: 4 mg Oxycodone/Acetaminophen (Percocet 5/325 Mg) 1 tab PO Q4H PRN PRN Reason: BREAKTHROUGH PAIN Last Admin: 08/18/18 10:17 Dose: 1 tab Pharmacy Profile Note (Vancomycin Consult Pharmacy) 1 each OTHER UNSCH PRN PRN Reason: Pharmacy to dose Senna/Docusate Sodium (Netta-Colace) 1 tab PO BID ON LICENSE OF [facility] Last Admin: 08/20/18 08:45 Dose: 1 tab Sennosides (Senokot) 17.2 mg PO Q12H PRN PRN Reason: Moderate Constipation Sertraline HCl (Zoloft) 50 mg PO DAILY ON LICENSE OF [facility] Last Admin: 08/20/18 08:45 Dose: 50 mg Zolpidem Tartrate (Ambien) 5 mg PO HS PRN PRN Reason: INSOMNIA Allergies Allergy/AdvReac Type Severity Reaction Status Date / Time cephalexin Allergy Severe rash Verified 08/13/18 06:34 diatrizoate meglumine Allergy Severe rash Verified 08/13/18 06:34 fluconazole Allergy Severe rash Verified 08/13/18 06:34 gadobenic acid Allergy Severe rash Verified 08/13/18 06:34 gadodiamide Allergy Severe rash Verified 08/13/18 06:34 gadoteridol Allergy Severe rash Verified 08/13/18 06:34 iodixanol Allergy Severe rash Verified 08/13/18 06:34 iohexol Allergy Severe rash Verified 08/13/18 06:34 pravastatin Allergy Severe rash Verified 08/13/18 06:34 erythromycin base AdvReac Urinary Verified 08/13/18 06:34 Freq (Inc/Dec) Home Medications Medication Instructions Recorded Confirmed Type acetaminophen-codeine 1 tab PO Q4HR PRN 05/26/18 08/13/18 History amlodipine 5 mg PO DAILY 05/26/18 08/13/18 History apixaban 5 mg PO BID 05/26/18 08/13/18 History clopidogrel 75 mg PO DAILY 05/26/18 08/13/18 History furosemide 20 mg PO Q2D 05/26/18 08/13/18 History hydralazine 10 mg PO Q8H 05/26/18 08/13/18 History hydrocodone-acetaminophen 1 tab PO Q4H PRN 05/26/18 08/13/18 History hydroxychloroquine 200 mg PO DAILY 05/26/18 08/13/18 History lanthanum 500 mg PO TID 05/26/18 08/13/18 History metoprolol tartrate 25 mg PO Q12H 05/26/18 08/13/18 History mirtazapine 30 mg PO HS 05/26/18 08/13/18 History sertraline 50 mg PO DAILY 05/26/18 08/13/18 History Advance Directives Advance Directives Date on File: 05/22/18 Living Will: No Healthcare Surrogate: Yes Health Care Surrogate Name and Number: HCS: Suyapa Goncalves [phone] Alt: Chemo Pathakyer- [phone] Power of Supervising Librarian: No Today's verbally stated goals: Patient would like to continue with aggressive treatment. She is agreeable to amputation of the right lower extremity but she feels it this time she is not strong enough to go through a surgery. Patient would like to be discharged home with home health care and physical therapy. She does not want to go to a prison facility. Family/friends goals: Family is agreeable to patient's decision to be discharged home with home health care and physical therapy. Ethical and Legal Issues: None identified at this time Physical Exam Vital Signs: Vital Signs - 24 hr 08/19/18 12:00 08/19/18 14:20 08/19/18 16:00 Temperature 98.2 F 98.9 F Pulse Rate 80 74 Respiratory Rate 18 4 L 18 Blood Pressure 129/62 139/63 Pulse Oximetry 97 96 08/19/18 20:00 08/20/18 00:00 08/20/18 04:00 Temperature 97.6 F 98.4 F 97.8 F Pulse Rate 76 76 81 Respiratory Rate 18 18 14 Blood Pressure 124/58 L 139/67 157/70 H Pulse Oximetry 95 95 96 08/20/18 08:00 Temperature 98.2 F Pulse Rate 58 L Respiratory Rate 20 Blood Pressure 150/73 H Pulse Oximetry 89 L I&O: Intake & Output 08/18/18 08/19/18 08/20/18 08/21/18 06:59 06:59 06:59 06:59 Intake Total 5110 / 5110 740 / 740 Output Total 350 / 350 Balance 4760 / 4760 740 / 740 Weight 35.2 kg 33.3 kg 32.5 kg Physical Exam: CONSTITUTIONAL/GENERAL: This is an elderly, chronically ill, cachectic patient with obvious muscle wasting, and bony prominences, in no acute distress. TUBES/LINES/DRAINS: PIV SKIN: No jaundice, rashes, or lesions. Ecchymoses on upper extremities. Wounds to right foot and right hip. Skin temperature appropriate. Not diaphoretic. HEAD: Atraumatic. Normocephalic. EYES: Pupils equal and round and reactive. Extraocular motions intact. No scleral icterus. No injection or drainage. Fundi not examined. ENT: Hearing grossly normal. Nose without bleeding or purulent drainage. Moist oral mucosa NECK: Trachea midline. Supple, nontender. CARDIOVASCULAR: Regular rate and rhythm without murmurs, gallops, or rubs. No JVD. Peripheral pulses symmetric. RESPIRATORY/CHEST: Symmetric, unlabored respirations. Clear to auscultation. Breath sounds equal bilaterally. No wheezes, rales, or rhonchi. GASTROINTESTINAL: Abdomen soft, non-tender, nondistended. No guarding. Bowel sounds present. GENITOURINARY: Without palpable bladder distension. MUSCULOSKELETAL: Extremities without clubbing, cyanosis, or edema. No joint tenderness or effusion noted. No calf tenderness. No mottling or clubbing. NEUROLOGICAL: Awake and alert. Motor and sensory grossly within normal limits. Follows commands. Moves all extremities. PSYCHIATRIC: No obvious anxiety/depression. no apparent hallucinations or other psychotic thought process. Diagnostic Tests Laboratory: Laboratory Results - last 72 hr 08/17/18 08/18/18 08/18/18 17:25 06:25 12:21 WBC 12.5 H RBC 3.34 L Hgb 9.6 L Hct 29.7 L MCV 88.9 MCH 28.8 MCHC 32.4 RDW 18.1 H Plt Count 430 MPV 6.4 L Neut % (Auto) 81.1 H Lymph % (Auto) 7.0 L Callahan % (Auto) 8.8 H Eos % (Auto) 2.3 Baso % (Auto) 0.8 Neut # (Auto) 10.1 H Lymph # (Auto) 0.9 L Callahan # (Auto) 1.1 H Eos # (Auto) 0.3 Baso # (Auto) 0.1 WBC Differential . Differential Comment Auto diff final Sodium 132 L 134 L Potassium 4.5 4.2 Chloride 105 106 Carbon Dioxide 17.6 L 16.5 L Anion Gap 9 12 BUN 32 H 30 H Creatinine 1.83 H 1.81 H Estimated GFR 27 L 27 L POC Glucose Random Glucose 94 99 Calcium 8.5 D 8.2 L Phosphorus 4.2 Magnesium 2.0 D Vancomycin Trough 26.5 H Random Vancomycin 08/19/18 08/19/18 08/19/18 08:54 08:54 10:35 WBC 16.3 H RBC 3.30 L Hgb 9.5 L Hct 29.8 L MCV 90.3 MCH 28.7 MCHC 31.8 L RDW 17.7 H Plt Count 389 MPV 6.5 L Neut % (Auto) 87.5 H Lymph % (Auto) 4.9 L Callahan % (Auto) 6.2 Eos % (Auto) 0.7 Baso % (Auto) 0.7 Neut # (Auto) 14.3 H Lymph # (Auto) 0.8 L Callahan # (Auto) 1.0 H Eos # (Auto) 0.1 Baso # (Auto) 0.1 WBC Differential . Differential Comment Auto diff final Sodium 136 Potassium 4.4 Chloride 108 H Carbon Dioxide 16.0 L Anion Gap 12 BUN 37 H Creatinine 1.89 H Estimated GFR 26 L POC Glucose 51 L Random Glucose 48 L* Calcium 8.0 L Phosphorus 4.0 Magnesium 2.0 Vancomycin Trough Random Vancomycin 21.0 08/19/18 08/19/18 08/20/18 11:27 18:21 04:37 WBC 14.8 H RBC 3.17 L Hgb 9.2 L Hct 28.5 L MCV 90.0 MCH 29.0 MCHC 32.2 RDW 17.4 H Plt Count 370 MPV 6.5 L Neut % (Auto) 83.2 H Lymph % (Auto) 5.8 L Callahan % (Auto) 8.0 Eos % (Auto) 2.3 Baso % (Auto) 0.7 Neut # (Auto) 12.4 H Lymph # (Auto) 0.9 L Callahan # (Auto) 1.2 H Eos # (Auto) 0.3 Baso # (Auto) 0.1 WBC Differential . Differential Comment Auto diff final Sodium Potassium Chloride Carbon Dioxide Anion Gap BUN Creatinine Estimated GFR POC Glucose 75 211 H Random Glucose Calcium Phosphorus Magnesium Vancomycin Trough Random Vancomycin 08/20/18 08/20/18 04:37 08:13 WBC RBC Hgb Hct MCV MCH MCHC RDW Plt Count MPV Neut % (Auto) Lymph % (Auto) Callahan % (Auto) Eos % (Auto) Baso % (Auto) Neut # (Auto) Lymph # (Auto) Callahan # (Auto) Eos # (Auto) Baso # (Auto) WBC Differential Differential Comment Sodium 140 Potassium 4.3 Chloride 110 H Carbon Dioxide 16.3 L Anion Gap 14 BUN 36 H Creatinine 1.92 H Estimated GFR 26 L POC Glucose 94 Random Glucose 82 Calcium 7.5 L Phosphorus 3.9 Magnesium 2.2 Vancomycin Trough Random Vancomycin Result Diagrams: 08/20/18 04:37 08/20/18 04:37 Microbiology: Microbiology 08/15/18 17:20 Aerobic Blood Culture - Preliminary Blood - Other No growth in 4 days Anaerobic Blood Culture - Preliminary No growth in 4 days 08/18/18 17:40 Stool Occult Blood (DAJA) - Final Stool Hemoccult positive 08/13/18 09:30 Aerobic Blood Culture - Final Blood - Peripheral No growth in 5 days Anaerobic Blood Culture - Final No growth in 5 days 08/13/18 09:11 Aerobic Blood Culture - Final Blood - Peripheral No growth in 5 days Anaerobic Blood Culture - Final No growth in 5 days Imaging: Hip CT 08/15/18 00:00 CONCLUSION: 1. Previous internal fixation. 2. No definite evidence for osteomyelitis. 3. Old fractures in the pelvis bilaterally. Chest X-Ray 08/15/18 06:00 CONCLUSION: Small bilateral pleural effusions left greater than right. No infiltrate or mass. Patient/Family Conference Family Conference Location: Bedside Issues Discussed: * Palliative care role, purpose, approach * Additional medical, psychosocial, and spiritual history * Patients general health, functional status, and cognitive changes in the months leading up to the current hospitalization * Patient/family understanding of the current medical problems * Patient/family understanding of prognosis * Patients goals of care as best understood from advance directives and/or conversations and/or values * Current medical treatment options and benefits/burdens of those options * Likely scenarios comparing ongoing aggressive care with a transition to comfort measures only * Questions answered to the best of my ability * Palliative care contact information provided Assessment and Plan - Disease Oriented Problem List (1) RADHA (acute kidney injury) (2) Urinary tract infection (3) Coronary artery disease (4) Severe peripheral arterial disease (5) Hypertension (6) Dehydration (7) Pressure ulcer, hip (8) Ulcer of heel (9) Depression - Symptom Scale (1) Pain 0-10 Scale: 7 Comment: Patient has chronic wounds to right lower extremity and right hip. (2) Decreased oral intake 0-10 Scale: Unable to quantify Comment: Patient endorsing nausea, and decreased oral intake. (3) Debility 0-10 Scale: Unable to quantify Comment: Progressive. Pertinent Non-Medical Issues: Psychosocial: Patient is originally from [place]. Patient moved to [place] in 2016. She spent most of a life in [place]. Patient is . She has 2 adult daughters. 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 Spiritual: Patient is Orthodoxy. Family Consumer Science [employer] Teacher Isac already visited with patient. Legal: Patient Completed healthcare surrogate form 05/22/18 Ethical issues impacting care: None identified at this time. Important Contacts: Healthcare [id number], [place] [phone] Alternate healthcare [id number], [place]- [phone] Prognosis: Mrs. Smith is a 73 years old female with a medical history significant for peripheral vascular disease status post left above-knee amputation, coronary artery disease, chronic lower extremity wounds, anemia, CHF, COPD, lupus, hypertension and history of DVT. Patient presented to the ER on 08/13/18 in the company of her family with complaints of weakness, dizziness in the past 36 hours prior to presentation ER. Clinical course complicated with renal insufficiency, MRSA urinary tract infection, chronic wounds to right lower extremity with unreconstructable disease and MRSA in wounds, pain, severe protein calorie malnourishment. Given ongoing multiple comorbidities, patient remains at high risk for further complications, deterioration and decline. Code Status: No Code DNR Plan: PLAN: Legal decision maker:Patient is able to participate in medical decision making. In the event that she is incapacitated she has designated her daughter Sacha Dale as her healthcare surrogate and her other daughter Zo Plaza is her alternate healthcare surrogate Goals: Aggressive short on no code. Patient has made herself DNR/DNI and her 2 daughters are supportive of her decision. Patient is agreeable to amputation of her right lower extremity though she feels at this time she is not strong enough to go through surgery. She is agreeable to following with Dr. Serrano after discharge and planning on amputation. Patient also wants to be discharged home with physical therapy and home health care not to a rehabilitation facility. CODE STATUS: No Code DNR/DNI SYMPTOMS: * Pain: Patient has severe PVD and chronic wounds to right foot and right hip- positive for MRSA. Vascular surgeon has recommended amputation. Wound care following. Patient currently his morphine sulfate 2 mg IV push every 4 hours prn and oxycodone/acetaminophen 5/325 every 4 hours prn for breakthrough pain. Pain appears to be adequately managed with current medication regimen. Continue to monitor for pain. * Decreased oral intake: Patient complains of nausea all the times, hence decreased oral intake. Patient gets Ensure with every meal. Encouraged patient to request anti-nausea medication prior to meals. * Nausea: Patient complains of nausea all the times. Zofran available. Assess for nausea prior to meals. * Debility: Progressive. Patient has had multiple hospitalizations. She has severe PVD which led to left AKA in April 2018. Patient has been receiving physical therapy at home. Patient now his chronic wounds to right lower extremity, which vascular surgeon has recommended amputation. Patient appears debilitated, weak and has lost significant amount of weight and will most likely not participate effectively in physical therapy. Palliative care will continue to follow the patient during hospital course as condition evolves, to assist patient/decision-maker with understanding of their medical conditions, weighing benefits/burdens of treatment options, for clarification of goals of treatment. Additionally will assist with any symptoms of palliative concern Appreciation Thank you for the opportunity to participate in the care of Precious Plaza. Attestation Attestation: To help prompt me to consider important information that might be impacting today's encounter and assessment, information from prior notes written by myself or my colleagues may have been "brought forward" into today's note. My signature on this note, however, is an attestation that I personally performed the exam, history, and/or decision-making noted today, and, unless otherwise indicated, the interactions with patient, family, and staff as well as the review of records all occurred today. I also attest that the listed assessment and stated plan reflect my best clinical judgment today based on the combination of historical information, prior notes, and today's exam/ interactions. When time spent is documented, it refers only to time spent today by the signer, or if indicated, combined time spent today by collaborating physician/nurse practitioner.
[2018-08-20] MEDS: Dextrose 5%/NaCl 0.9% Inj 1,000 ML IV.CONT SCH (13:00)
--- NOTE | 2018-08-20 17:42 | P.PNADD ---
Addendum to Inpatient Note Additional information: MRI ordered will review prior to dc rec's
[2018-08-20] MEDS: Mirtazapine 15 MG Tablet PO SCH (20:03)
[2018-08-21] MEDS: Acetaminophen/Codeine 300/30 MG Tablet PO PRN ×4 (04:08→21:01)
[2018-08-21] MEDS: hydrALAZINE 10 MG Tablet PO SCH ×3 (04:08→19:04)
[2018-08-21] MEDS: Morphine Inj 4 MG/ML Vial IV.PUSH PRN (06:57)
[2018-08-21] MEDS: Senna/Docusate Sodium 8.6/50 MG Tablet PO SCH ×2 (09:05→21:02)
[2018-08-21] MEDS: amLODIPine 10 MG Tablet PO SCH (09:06)
[2018-08-21] MEDS: Sertraline 50 MG Tablet PO SCH (09:06)
[2018-08-21] MEDS: Multivitamin/Minerals Therapeutic Tablet PO SCH (09:06)
[2018-08-21] MEDS: Hydroxychloroquine 200 MG Tablet PO SCH (09:06)
[2018-08-21] MEDS: Metoprolol Tartrate 25 MG Tablet PO SCH ×2 (10:55→23:53)
[2018-08-21] MEDS: Dextrose 5%/NaCl 0.9% Inj 1,000 ML IV.CONT SCH (11:00)
[2018-08-21] MEDS ORDERED: Vancomycin Inj 500 MG in Sodium Chlor 0.9% Inj 100 ML IV.SIG ONE (11:00)
--- NOTE | 2018-08-21 13:48 | MR ---
EXAM DATE: 08/21/2018 11:40 AM EDT AGE/SEX: 73 years / Female INDICATIONS: Wound on upper mid lateral right thigh. CLINICAL DATA: This is the patient's subsequent encounter. Patient reports that signs and symptoms h ave been present for 1 week and indicates a pain score of 3/10. MEDICAL/SURGICAL HISTORY: Cardiovascular disease. Hypertension. Peripheral vascular disease. Peripheral arterial bypass. Coronary artery stent. Thyroidectomy. Left leg amputation. Right hip replacement. COMPARISON: [facility] [place], CT HIP RIGHT W/O CONTRAST, 08/15/2018. . TECHNIQUE: Multiplanar, multisequence MRI examination was performed without contrast. FINDINGS: There is internal fixation device in the femoral head as well as an intramedullary rina within the sha ft of the femur. The internal fixation device creates some metallic artifact which limits the evaluat ion. On the axial slice images there is some induration and thickening involving the subcutaneous sof t tissues along the posterior aspect of the upper right thigh. Otherwise, no definite loculated fluid collections are seen to suggest an abscess. The muscle structures appear to be diffusely atrophic. L imited visualization of the bony structures due to the internal fixation devices.. CONCLUSION: 1. There is some thickening and induration of the subcutaneous soft tissues along the posterior aspe ct of the upper right thigh. 2. No definite loculated fluid collections are demonstrated to suggest a drainable abscess. Electronically signed by: Royce Rose MD 08/21/2018 1:46 PM EDT
--- NOTE | 2018-08-21 14:45 | P.PNIM ---
Subjective Interval history: The patient was resting comfortably in bed. Her family was at the bedside. She wants to go home tomorrow. Family is hesitant in taking her back tomorrow. She wants to have a Reynolds placed. Discussed with nursing. Physical Exam Vital signs: Vital Signs 08/20/18 16:00 08/20/18 20:00 08/21/18 00:00 Temperature 98.2 F 98.5 F Pulse Rate 69 79 83 Respiratory Rate 20 18 18 Blood Pressure 120/57 L 122/60 134/61 Pulse Oximetry 96 95 97 08/21/18 00:34 08/21/18 04:00 08/21/18 05:29 Temperature 97.9 F Pulse Rate 84 75 74 Respiratory Rate 18 Blood Pressure 144/65 H Pulse Oximetry 95 08/21/18 08:00 08/21/18 12:00 Temperature 98.9 F 98.4 F Pulse Rate 81 67 Respiratory Rate 16 17 Blood Pressure 127/61 126/56 L Pulse Oximetry 92 L 99 Intake & Output 08/20/18 08/21/18 08/21/18 18:59 06:59 18:59 Intake Total 240 / 240 150 / 150 Output Total 251 / 251 Balance -11 / -11 150 / 150 Weight 34 kg Intake: IV 150 / 150 Levaquin 750 mg Premix Inj 150 150 / 150 ML @ 100 mls/hr IV.SIG Q48H TY Rx#:[id number] Oral 240 / 240 Output: Urine 250 / 250 Stool 1 / Other: # Voids 1 # Incontinent Voids 1 Date of Last Bowel Movement 08/20/18 08/20/18 Narrative: GENERAL: No distress. SKIN: Warm and dry. HEAD: Atraumatic. Normocephalic. EYES: Pupils equal and round. No scleral icterus. No injection or drainage. ENT: No nasal bleeding or discharge. Mucous membranes pink and moist. NECK: Trachea midline. No JVD. CARDIOVASCULAR: Regular rate and rhythm. S1-S2 no S3 or S4. RESPIRATORY: No accessory muscle use. Clear to auscultation. Breath sounds equal bilaterally. GASTROINTESTINAL: Abdomen soft, non-tender, nondistended. Hepatic and splenic margins not palpable. MUSCULOSKELETAL: Extremities without clubbing, cyanosis, or edema. No obvious deformities. Left [id number] amputation. Right foot bandaged. NEUROLOGICAL: Awake and alert. No obvious cranial nerve deficits. Motor grossly within normal limits. 4 out of 5 muscle strength in the arms and 4/5 in right leg. Not able to bear weight on the right lower extremity at all. Normal speech. Results - Labs CBC & Chem 7: 08/20/18 04:37 08/20/18 04:37 Laboratory Results - last 24 hr 08/20/18 08/21/18 20:19 08:08 POC Glucose 125 H Random Vancomycin 17.9 Microbiology 08/15/18 17:20 Blood - Other Aerobic Blood Culture - Final No growth in 5 days 08/15/18 17:20 Blood - Other Anaerobic Blood Culture - Final No growth in 5 days - Imaging Impressions Femur MRI 08/21/18 07:00 CONCLUSION: 1. There is some thickening and induration of the subcutaneous soft tissues along the posterior aspect of the upper right thigh. 2. No definite loculated fluid collections are demonstrated to suggest a drainable abscess. Assessment and Plan - Assessment (1) RADHA (acute kidney injury) Code(s): N17.9 - Acute kidney failure, unspecified Status: Acute (2) Acute UTI Code(s): N39.0 - Urinary tract infection, site not specified Status: Acute (3) Dehydration Code(s): E86.0 - Dehydration Status: Acute (4) Pressure ulcer, hip Code(s): L89.209 - Pressure ulcer of unspecified hip, unspecified stage Status : Acute (5) Severe peripheral arterial disease Code(s): I73.9 - Peripheral vascular disease, unspecified Status: Acute (6) Ulcer of heel Code(s): L97.409 - Non-pressure chronic ulcer of unspecified heel and midfoot with unspecified severity Status: Acute - Plan Urinary tract infection MRSA growing in urine. ID consult appreciated. -IV vanco per ID. Peripheral vascular disease Patient has a history of left AKA. Vascular surgery is currently following the patient. Wound care physician has also been consulted. Wound culture growing MRSA. MRI of right hip without obvious infection. -Follow up with vascular surgery, currently recommending right AKA. -dressings per wound care. -antibiotics per ID. -palliative care consulted to help clarify goals of care. -Reynolds catheter per IR for continued antibiotics as unable to obtain an IV. Renal insufficiency/stage III chronic kidney disease/dehydration Creatinine is about at baseline. -follow BMP as needed and avoid nephrotoxins. Hypocalcemia/Hypomagnesemia/Hypokalemia/Hyponatremia S/t decreased PO intake. Improved. -monitor. Failure to thrive/protein calorie malnourishment severe S/t gastroparesis. -continue on mirtazapine to help with appetite stimulation. -gastroparesis diet. -Zofran with meals. -add Ensure. -agriculture worker consult appreciated. MVI added. Coronary artery disease Stable at this time. -continue on Plavix and apixaban. Tobacco abuse Chronic. -recommend smoking cessation. Anemia Chronic. On apixaban. Hemoccult positive. -follow CBC. Stable. -consider GI work-up as outpt as hemoglobin is stable. Poor IV access S/t vascular disease. -central line if unable to obtain peripheral access. Hypoglycemia S/t decreased PO intake. -encourage nutrition. -D5NS. PPx: Apixaban Discharge Planning: PT recommends HHC. Needs final ID antibiotic recs. Reynolds to be placed.
--- NOTE | 2018-08-21 17:11 | P.PNPAL ---
Reason for Visit Reason for visit: a. To assist with evaluation and management of symptoms including: Pain, decreased oral intake, debility b. To assist medical decision maker(s) with: better understanding of current medical conditions; weighing benefits/burdens of medical treatment options; making medical treatment decisions. Subjective Subjective/Interval History: Follow-up medically necessary for symptom management. Patient seen and examined in her room in the presence of her 2 daughters. Patient is very irritable today and is complaining that she never slept last night since there were many people coming in and out of the room throughout the night. Patient verbalizing that she would like to be discharged today if possible. Patient denies pain at this time, denies nausea. Patient's daughter is brought here lunch, she refuses to eat most of the hospital food. MRI to right thigh (wound) revealed some thickening and induration of the subcutaneous soft tissues along the posterior aspect of the upper right thigh and no definite loculated fluid collections that would suggest a drainable abscess. Patient states that she wants to go home. Patient states that she has already discussed with the attending physician and will have a Reynolds catheter placed so that she can continue with IV antibiotics at home. Patient stated that she is very frustrated today and not able to sign her [facility] DNR today. Patient requested to sign [facility] DNR another day, she just wants to be left alone. Patient insists that she wants to go home with home health care and home Physical therapy- she does not want to go to any rehabilitation facility. Case discussed with Dr. Urena, who has broached hospice with patient`s daughter Zo in the presence of palliative care but family appears to still want to continue with aggressive treatment at this time. One of the daughters Zo, who moved in with patient is aware of hospice services and benefits. Patient`s daughter, Zo who currently is living with patient is hesitant to take patient home after discharge but is willing to honor her mothers wishes. Family/Friend Interactions: See interval note. . Advance Directives Living Will: Never completed Health Care Surrogate: Copy in medical record Durable Power of Pbx Supervisor: Never completed Advance Directives Date on File: 05/22/18 Health Care Surrogate Name and Number: HCS: SachaSuyapa worley [phone] Alt: Bola Pathak- [phone] Objective Vital Signs: Vital Signs 08/20/18 20:00 08/21/18 00:00 08/21/18 00:34 Temperature 98.2 F 98.5 F Pulse Rate 79 83 84 Respiratory Rate 18 18 Blood Pressure 122/60 134/61 Pulse Oximetry 95 97 08/21/18 04:00 08/21/18 05:29 08/21/18 08:00 Temperature 97.9 F 98.9 F Pulse Rate 75 74 81 Respiratory Rate 18 16 Blood Pressure 144/65 H 127/61 Pulse Oximetry 95 92 L 08/21/18 12:00 Temperature 98.4 F Pulse Rate 67 Respiratory Rate 17 Blood Pressure 126/56 L Pulse Oximetry 99 Intake & Output 08/20/18 08/21/18 08/21/18 18:59 06:59 18:59 Intake Total 240 / 240 150 / 150 1000 / 1000 Output Total 251 / 251 Balance -11 / -11 150 / 150 1000 / 1000 Weight 34 kg Intake: IV 150 / 150 1000 / 1000 D5W/Normal Saline Inj 1,000 ML 1000 / 1000 @ 42 mls/hr IV.CONT .[id number] TY Rx#:[id number] Levaquin 750 mg Premix Inj 150 150 / 150 ML @ 100 mls/hr IV.SIG Q48H TY Rx#:[id number] Oral 240 / 240 Output: Urine 250 / 250 Stool Other: # Voids 1 # Incontinent Voids 1 Date of Last Bowel Movement 08/20/18 08/20/18 Physical Exam: CONSTITUTIONAL/GENERAL: This is an elderly, chronically ill, cachectic patient with obvious muscle wasting, and bony prominences, in no acute distress. TUBES/LINES/DRAINS: PIV SKIN: No jaundice, rashes, or lesions. Ecchymoses on upper extremities. Wounds to right foot and right hip. Skin temperature appropriate. Not diaphoretic. HEAD: Atraumatic. Normocephalic. EYES: PERRLA. Fundi not examined. ENT: Hearing grossly normal. No nasal bleeding or drainage. Moist oral mucosa NECK: Trachea midline. Supple, nontender. CARDIOVASCULAR: S1, S2 normal, no gallops, or rubs. No JVD. Peripheral pulses symmetric. RESPIRATORY/CHEST: Symmetric, unlabored respirations. Clear to auscultation. Breath sounds equal bilaterally. No wheezes, rales, or rhonchi. GASTROINTESTINAL: Abdomen soft, non-tender, nondistended. No guarding. Bowel sounds present. GENITOURINARY: Without palpable bladder distension. MUSCULOSKELETAL: Extremities without clubbing, or edema. some toes not fully covered with dressing appear necrotic. No mottling or clubbing. NEUROLOGICAL: Awake and alert. Motor and sensory grossly within normal limits. Follows commands. Moves all extremities. PSYCHIATRIC: No obvious anxiety/depression. no apparent hallucinations or other psychotic thought process. Diagnostic Tests Laboratory: Laboratory Results - last 72 hr 08/19/18 08/19/18 08/19/18 08:54 08:54 10:35 WBC 16.3 H RBC 3.30 L Hgb 9.5 L Hct 29.8 L MCV 90.3 MCH 28.7 MCHC 31.8 L RDW 17.7 H Plt Count 389 MPV 6.5 L Neut % (Auto) 87.5 H Lymph % (Auto) 4.9 L [place] % (Auto) 6.2 Eos % (Auto) 0.7 Baso % (Auto) 0.7 Neut # (Auto) 14.3 H Lymph # (Auto) 0.8 L [place] # (Auto) 1.0 H Eos # (Auto) 0.1 Baso # (Auto) 0.1 WBC Differential . Differential Comment Auto diff final Sodium 136 Potassium 4.4 Chloride 108 H Carbon Dioxide 16.0 L Anion Gap 12 BUN 37 H Creatinine 1.89 H Estimated GFR 26 L POC Glucose 51 L Random Glucose 48 L* Calcium 8.0 L Phosphorus 4.0 Magnesium 2.0 Random Vancomycin 21.0 08/19/18 08/19/18 08/20/18 11:27 18:21 04:37 WBC 14.8 H RBC 3.17 L Hgb 9.2 L Hct 28.5 L MCV 90.0 MCH 29.0 MCHC 32.2 RDW 17.4 H Plt Count 370 MPV 6.5 L Neut % (Auto) 83.2 H Lymph % (Auto) 5.8 L [place] % (Auto) 8.0 Eos % (Auto) 2.3 Baso % (Auto) 0.7 Neut # (Auto) 12.4 H Lymph # (Auto) 0.9 L [place] # (Auto) 1.2 H Eos # (Auto) 0.3 Baso # (Auto) 0.1 WBC Differential . Differential Comment Auto diff final Sodium Potassium Chloride Carbon Dioxide Anion Gap BUN Creatinine Estimated GFR POC Glucose 75 211 H Random Glucose Calcium Phosphorus Magnesium Random Vancomycin 08/20/18 08/20/18 08/20/18 04:37 08:13 20:19 WBC RBC Hgb Hct MCV MCH MCHC RDW Plt Count MPV Neut % (Auto) Lymph % (Auto) [place] % (Auto) Eos % (Auto) Baso % (Auto) Neut # (Auto) Lymph # (Auto) [place] # (Auto) Eos # (Auto) Baso # (Auto) WBC Differential Differential Comment Sodium 140 Potassium 4.3 Chloride 110 H Carbon Dioxide 16.3 L Anion Gap 14 BUN 36 H Creatinine 1.92 H Estimated GFR 26 L POC Glucose 94 125 H Random Glucose 82 Calcium 7.5 L Phosphorus 3.9 Magnesium 2.2 Random Vancomycin 08/21/18 08:08 WBC RBC Hgb Hct MCV MCH MCHC RDW Plt Count MPV Neut % (Auto) Lymph % (Auto) [place] % (Auto) Eos % (Auto) Baso % (Auto) Neut # (Auto) Lymph # (Auto) [place] # (Auto) Eos # (Auto) Baso # (Auto) WBC Differential Differential Comment Sodium Potassium Chloride Carbon Dioxide Anion Gap BUN Creatinine Estimated GFR POC Glucose Random Glucose Calcium Phosphorus Magnesium Random Vancomycin 17.9 Result Diagrams: 08/20/18 04:37 08/20/18 04:37 Microbiology: Microbiology 08/15/18 17:20 Aerobic Blood Culture - Final Blood - Other No growth in 5 days Anaerobic Blood Culture - Final No growth in 5 days 08/18/18 17:40 Stool Occult Blood (DAJA) - Final Stool Hemoccult positive Imaging: Hip CT 08/15/18 00:00 CONCLUSION: 1. Previous internal fixation. 2. No definite evidence for osteomyelitis. 3. Old fractures in the pelvis bilaterally. Chest X-Ray 08/15/18 06:00 CONCLUSION: Small bilateral pleural effusions left greater than right. No infiltrate or mass. Femur MRI 08/21/18 07:00 CONCLUSION: 1. There is some thickening and induration of the subcutaneous soft tissues along the posterior aspect of the upper right thigh. 2. No definite loculated fluid collections are demonstrated to suggest a drainable abscess. Assessment and Plan - Disease Oriented Problem List (1) RADHA (acute kidney injury) (2) Urinary tract infection (3) Coronary artery disease (4) Severe peripheral arterial disease (5) Hypertension (6) Dehydration (7) Pressure ulcer, hip (8) Ulcer of heel (9) Depression - Symptom Scale (1) Pain 0-10 Scale: 0 Comment: Patient has chronic wounds to right lower extremity and right hip. (2) Decreased oral intake 0-10 Scale: Unable to quantify Comment: Patient endorsing nausea, and decreased oral intake. (3) Debility 0-10 Scale: Unable to quantify Comment: Progressive. Pertinent Non-Medical Issues: Psychosocial: Patient is originally from [place]. Patient moved to [place] in 2016. She spent most of a life in [place]. Patient is . She has 2 adult daughters. 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 Spiritual: Patient is Lutheran. Cloth Tearer Isac already visited with patient. Legal: Patient Completed healthcare surrogate form 05/22/18 Ethical issues impacting care: None identified at this time. Important Contacts: Healthcare [id number], Teal [phone] Alternate healthcare tdlneanky-[id number], Bola- [phone] Prognosis: Mrs. Smith is a 73 years old female with a medical history significant for peripheral vascular disease status post left above-knee amputation, coronary artery disease, chronic lower extremity wounds, anemia, CHF, COPD, lupus, hypertension and history of DVT. Patient presented to the ER on 08/13/18 in the company of her family with complaints of weakness, dizziness in the past 36 hours prior to presentation ER. Clinical course complicated with renal insufficiency, MRSA urinary tract infection, chronic wounds to right lower extremity with unreconstructable disease and MRSA in wounds, pain, severe protein calorie malnourishment. Given ongoing multiple comorbidities, patient remains at high risk for further complications, deterioration and decline. Code Status: No Code DNR Plan: PLAN: Legal decision maker:Patient is able to participate in medical decision making. In the event that she is incapacitated she has designated her daughter Sacha Dale as her healthcare surrogate and her other daughter Zo Plaza is her alternate healthcare surrogate Goals: Aggressive short on no code. Patient requested to sign [place] DNR another time , not today because she hardly slept today. Patient is requesting to be discharged home with a Reynolds catheter for antibiotic therapy. She insists that she wants to be discharged home with home health care and PT. She does not want to go to a rehabilitation facility. CODE STATUS: No Code DNR/DNI SYMPTOMS: * Pain: Patient has severe PVD and chronic wounds to right foot and right hip- positive for MRSA. Vascular surgeon has recommended amputation. Wound care following. Patient currently his morphine sulfate 2 mg IV push every 4 hours prn and oxycodone/acetaminophen 5/325 every 4 hours prn for breakthrough pain. Pain appears to be adequately managed with current medication regimen. Continue to monitor for pain. * Decreased oral intake: Patient complains of nausea all the times, hence decreased oral intake. Patient gets Ensure with every meal. Encouraged patient to request anti-nausea medication prior to meals. Family bringing in food for patient and it appears that she is at least eating some of the food. * Nausea: Patient complains of nausea all the times. Zofran available. Currently denying pain. Assess for nausea prior to meals. * Debility: Progressive. Patient has had multiple hospitalizations. She has severe PVD which led to left AKA in April 2018. Patient has been receiving physical therapy at home. Patient now his chronic wounds to right lower extremity, which vascular surgeon has recommended amputation. Patient appears debilitated, weak and has lost significant amount of weight and will most likely not participate effectively in physical therapy. Palliative care will continue to follow the patient during hospital course as condition evolves, to assist patient/decision-maker with understanding of their medical conditions, weighing benefits/burdens of treatment options, for clarification of goals of treatment. Additionally will assist with any symptoms of palliative concern Attestation Attestation: To help prompt me to consider important information that might be impacting today's encounter and assessment, information from prior notes written by myself or my colleagues may have been "brought forward" into today's note. My signature on this note, however, is an attestation that I personally performed the exam, history, and/or decision-making noted today, and, unless otherwise indicated, the interactions with patient, family, and staff as well as the review of records all occurred today. I also attest that the listed assessment and stated plan reflect my best clinical judgment today based on the combination of historical information, prior notes, and today's exam/ interactions. When time spent is documented, it refers only to time spent today by the signer, or if indicated, combined time spent today by collaborating physician/nurse practitioner.
[2018-08-21] MEDS: Mirtazapine 15 MG Tablet PO SCH (21:01)
[2018-08-22] MEDS: Acetaminophen/Codeine 300/30 MG Tablet PO PRN ×4 (02:30→22:11)
[2018-08-22] MEDS: hydrALAZINE 10 MG Tablet PO SCH ×3 (03:57→20:06)
[2018-08-22 07:00] LABS: Baso # (Auto) 0.1 th/mm3 (0.0-0.2); Baso % (Auto) 0.6 % (0.0-2.0); Eos # (Auto) 0.4 th/mm3 (0.0-0.4); Eos % (Auto) 1.9 % (0.0-4.0); Hematocrit 25.9 % (35.0-46.0); Hemoglobin 8.2 gm/dL (11.6-15.3); Lymph # (Auto) 1.1 th/mm3 (1.0-4.8); Lymph % (Auto) 5.2 % (9.0-44.0); Mean Corpuscular HGB Conc 31.6 % (32.0-36.0); Mean Corpuscular Hemoglobin 28.6 pg (27.0-34.0); Mean Corpuscular Volume 90.5 fL (80.0-100.0); Mean Platelet Volume 6.9 fL (7.0-11.0); Mono # (Auto) 1.5 th/mm3 (0.0-0.9); Mono % (Auto) 7.1 % (0.0-8.0); Neut # (Auto) 17.7 th/mm3 (1.8-7.7); Neut % (Auto) 85.2 % (16.0-70.0); Platelet Count 335 th/mm3 (150-450); Red Blood Count 2.86 mil/mm3 (4.00-5.30); Red Cell Distribution Width 17.9 % (11.6-17.2); White Blood Count 20.8 th/mm3 (4.0-11.0)
[2018-08-22 07:23] LABS: Calcium 7.3 mg/dL (8.5-10.1); Carbon Dioxide 15.3 meq/L (21.0-32.0); Magnesium 2.1 mg/dL (1.5-2.5); Phosphorus 4.8 mg/dL (2.5-4.9); Potassium 5.2 meq/L (3.5-5.1)
[2018-08-22 07:39] LABS: Total Protein 6.2 g/dL (6.4-8.2)
[2018-08-22] MEDS: Sertraline 50 MG Tablet PO SCH (08:58)
[2018-08-22] MEDS: Multivitamin/Minerals Therapeutic Tablet PO SCH (08:58)
[2018-08-22] MEDS: Hydroxychloroquine 200 MG Tablet PO SCH (08:59)
[2018-08-22] MEDS: amLODIPine 10 MG Tablet PO SCH (08:59)
[2018-08-22] MEDS: Senna/Docusate Sodium 8.6/50 MG Tablet PO SCH ×2 (08:59→21:59)
[2018-08-22] MEDS: Metoprolol Tartrate 25 MG Tablet PO SCH ×2 (11:59→21:59)
[2018-08-22] MEDS: Vancomycin Inj 750 MG in Sodium Chlor 0.9% Inj 250 ML IV.SIG ONE ×2 (12:00→18:26)
[2018-08-22] MEDS: Dextrose 5%/NaCl 0.9% Inj 1,000 ML IV.CONT SCH (12:00)
--- NOTE | 2018-08-22 17:51 | P.PN ---
Subjective Interval history: Follow-up for UTI, PVD, electrolyte imbalance. Patient is currently resting in bed. Denies any chest pain, shortness of breath, fever or chills. She complains of persistent right lower extremity pain. Physical Exam Vital signs: Vital Signs 08/21/18 20:00 08/22/18 00:00 08/22/18 04:00 Temperature 98.2 F 98.1 F 98.5 F Pulse Rate 74 78 70 Respiratory Rate 20 18 18 Blood Pressure 140/63 140/63 136/59 L Pulse Oximetry 80 L 98 95 08/22/18 04:18 08/22/18 08:00 08/22/18 08:52 Temperature 98.1 F Pulse Rate 72 52 L 79 Respiratory Rate 18 Blood Pressure 150/83 H Pulse Oximetry 81 L 89 L 08/22/18 12:00 08/22/18 16:00 Temperature 98.1 F 98 F Pulse Rate 80 71 Respiratory Rate 18 18 Blood Pressure 127/58 L 126/56 L Pulse Oximetry 92 L 92 L Intake & Output 08/21/18 08/22/18 08/22/18 18:59 06:59 18:59 Intake Total 1600 / 1600 Output Total 201 / 201 Balance 1399 / 1399 Weight 36 kg Intake: IV 1000 / 1000 D5W/Normal Saline Inj 1,000 ML 1000 / 1000 @ 42 mls/hr IV.[id number] Rx#:[id number] Oral 600 / 600 Output: Urine 200 / 200 Stool / Other: # Voids 1 2 Date of Last Bowel Movement 08/20/18 08/20/18 # Bowel Movements 0 Narrative: GENERAL: No distress. SKIN: Warm and dry. HEAD: Atraumatic. Normocephalic. EYES: Pupils equal and round. No scleral icterus. No injection or drainage. ENT: No nasal bleeding or discharge. Mucous membranes pink and moist. NECK: Trachea midline. No JVD. CARDIOVASCULAR: Regular rate and rhythm. S1-S2 no S3 or S4. RESPIRATORY: No accessory muscle use. Clear to auscultation. Breath sounds equal bilaterally. GASTROINTESTINAL: Abdomen soft, non-tender, nondistended. Hepatic and splenic margins not palpable. MUSCULOSKELETAL: Extremities without clubbing, cyanosis, or edema. No obvious deformities. Left [id number] amputation. Right foot bandaged. NEUROLOGICAL: Awake and alert. No obvious cranial nerve deficits. Motor grossly within normal limits. 4 out of 5 muscle strength in the arms and 4/5 in right leg. Not able to bear weight on the right lower extremity at all. Normal speech. Results - Labs CBC & Chem 7: 08/22/18 06:09 08/22/18 06:09 Laboratory Results - last 24 hr 08/22/18 08/22/18 06:09 06:09 WBC 20.8 H RBC 2.86 L Hgb 8.2 L Hct 25.9 L MCV 90.5 MCH 28.6 MCHC 31.6 L RDW 17.9 H Plt Count 335 MPV 6.9 L Neut % (Auto) 85.2 H Lymph % (Auto) 5.2 L Sargent % (Auto) 7.1 Eos % (Auto) 1.9 Baso % (Auto) 0.6 Neut # (Auto) 17.7 H Lymph # (Auto) 1.1 Sargent # (Auto) 1.5 H Eos # (Auto) 0.4 Baso # (Auto) 0.1 WBC Differential . Differential Comment Auto diff final Sodium 137 Potassium 5.2 H Chloride 111 H Carbon Dioxide 15.3 L Anion Gap 11 BUN 40 H Creatinine 2.13 H Estimated GFR 23 L Random Glucose 56 L Calcium 7.3 L* Prot Corrected Calcium 7.8 L Phosphorus 4.8 Magnesium 2.1 Total Protein 6.2 L D Random Vancomycin 15.0 Assessment and Plan - Assessment (1) RADHA (acute kidney injury) Code(s): N17.9 - Acute kidney failure, unspecified Status: Acute (2) Acute UTI Code(s): N39.0 - Urinary tract infection, site not specified Status: Acute (3) Dehydration Code(s): E86.0 - Dehydration Status: Acute (4) Pressure ulcer, hip Code(s): L89.209 - Pressure ulcer of unspecified hip, unspecified stage Status : Acute (5) Severe peripheral arterial disease Code(s): I73.9 - Peripheral vascular disease, unspecified Status: Acute (6) Ulcer of heel Code(s): L97.409 - Non-pressure chronic ulcer of unspecified heel and midfoot with unspecified severity Status: Acute - Plan Urinary tract infection MRSA growing in urine. ID is following. Peripheral vascular disease MRSA wound infection Patient has a history of left AKA. Vascular surgery is currently following the patient. Wound care physician has also been consulted. Wound culture growing MRSA. MRI of right hip without obvious infection. -Follow up with vascular surgery, currently recommending right AKA. -dressings per wound care. -palliative care consulted to help clarify goals of care. -WBC is elevated 14.8 ==> 20.8 on 08/22/2018. -Patient has no IV access. Will request ID to consider any PO options if possible such as Linezolid for MRSA wound infection. Renal insufficiency/stage III chronic kidney disease/dehydration Creatinine is about at baseline. -follow BMP as needed and avoid nephrotoxins. Hypocalcemia/Hypomagnesemia/Hypokalemia/Hyponatremia S/t decreased PO intake. Improved. -monitor. Failure to thrive/protein calorie malnourishment severe S/t gastroparesis. -continue on mirtazapine to help with appetite stimulation. -gastroparesis diet. -Zofran with meals. -add Ensure. -administration specialist consult appreciated. MVI added. Coronary artery disease Stable at this time. -continue on Plavix and apixaban. Tobacco abuse Chronic. -recommend smoking cessation. Anemia Chronic. On apixaban. Hemoccult positive. -follow CBC. Stable. -consider GI work-up as outpt as hemoglobin is stable. Poor IV access S/t vascular disease. -central line if unable to obtain peripheral access. Hypoglycemia S/t decreased PO intake. -encourage nutrition. -D5NS. PPx: Apixaban
--- NOTE | 2018-08-22 19:09 | P.PNID ---
Subjective Remarks: MRI also negative, pt refused NM WBC scan co severe rest pain in R foot worsening leukocytosis Antibiotics: vancomycin Allergies/Adverse Reactions: Allergies cephalexin Allergy (Severe, Verified 08/13/18 06:34) rash diatrizoate meglumine Allergy (Severe, Verified 08/13/18 06:34) rash fluconazole Allergy (Severe, Verified 08/13/18 06:34) rash gadobenic acid Allergy (Severe, Verified 08/13/18 06:34) rash gadodiamide Allergy (Severe, Verified 08/13/18 06:34) rash gadoteridol Allergy (Severe, Verified 08/13/18 06:34) rash iodixanol Allergy (Severe, Verified 08/13/18 06:34) rash iohexol Allergy (Severe, Verified 08/13/18 06:34) rash pravastatin Allergy (Severe, Verified 08/13/18 06:34) rash erythromycin base Adverse Reaction (Verified 08/13/18 06:34) Urinary Freq (Inc/Dec) Objective Vital Signs 08/21/18 20:00 08/22/18 00:00 08/22/18 04:00 Temperature 98.2 F 98.1 F 98.5 F Pulse Rate 74 78 70 Respiratory Rate 20 18 18 Blood Pressure 140/63 140/63 136/59 L Pulse Oximetry 80 L 98 95 08/22/18 04:18 08/22/18 08:00 08/22/18 08:52 Temperature 98.1 F Pulse Rate 72 52 L 79 Respiratory Rate 18 Blood Pressure 150/83 H Pulse Oximetry 81 L 89 L 08/22/18 12:00 08/22/18 16:00 Temperature 98.1 F 98 F Pulse Rate 80 71 Respiratory Rate 18 18 Blood Pressure 127/58 L 126/56 L Pulse Oximetry 92 L 92 L Intake & Output 08/22/18 08/22/18 08/23/18 06:59 18:59 06:59 Weight 36 kg Other: # Voids 2 2 # Incontinent Voids 1 Date of Last Bowel Movement 08/20/18 08/21/18 08/15/18 17:20 Blood - Other Aerobic Blood Culture - Final No growth in 5 days 08/15/18 17:20 Blood - Other Anaerobic Blood Culture - Final No growth in 5 days Lab - Hematology Results 08/22/18 06:09 WBC 20.8 H RBC 2.86 L Hgb 8.2 L Hct 25.9 L MCV 90.5 MCH 28.6 MCHC 31.6 L RDW 17.9 H Plt Count 335 MPV 6.9 L Neut % (Auto) 85.2 H Lymph % (Auto) 5.2 L Pender % (Auto) 7.1 Eos % (Auto) 1.9 Baso % (Auto) 0.6 Neut # (Auto) 17.7 H Lymph # (Auto) 1.1 Pender # (Auto) 1.5 H Eos # (Auto) 0.4 Baso # (Auto) 0.1 WBC Differential . Differential Comment Auto diff final Lab - Chemistry Results 08/20/18 08/22/18 20:19 06:09 Sodium 137 Potassium 5.2 H Chloride 111 H Carbon Dioxide 15.3 L Anion Gap 11 BUN 40 H Creatinine 2.13 H Estimated GFR 23 L POC Glucose 125 H Random Glucose 56 L Calcium 7.3 L* Prot Corrected Calcium 7.8 L Phosphorus 4.8 Magnesium 2.1 Total Protein 6.2 L D Imaging: ITS Impressions Hip CT 08/15/18 00:00 CONCLUSION: 1. Previous internal fixation. 2. No definite evidence for osteomyelitis. 3. Old fractures in the pelvis bilaterally. Chest X-Ray 08/15/18 06:00 CONCLUSION: Small bilateral pleural effusions left greater than right. No infiltrate or mass. Femur MRI 08/21/18 07:00 CONCLUSION: 1. There is some thickening and induration of the subcutaneous soft tissues along the posterior aspect of the upper right thigh. 2. No definite loculated fluid collections are demonstrated to suggest a drainable abscess. Physical Exam: GENERAL: NAD frail, cachectic elderly pt SKIN: Warm and dry. no rash HEAD: Atraumatic. Normocephalic. EYES: Pupils equal and round. No scleral icterus. No injection or drainage. ENT: No nasal bleeding or discharge. Mucous membranes pink and moist. NECK: Trachea midline. No JVD. CARDIOVASCULAR: Regular rate and rhythm. RESPIRATORY: No accessory muscle use. Clear to auscultation. Breath sounds decreassed bilaterally. Barrel chaped chest GASTROINTESTINAL: Abdomen soft, non-tender, distended. Hepatic and splenic margins not palpable. MUSCULOSKELETAL: Extremities without clubbing, cyanosis, or edema. well healed L AKA R thigh with minimal swelling , small opening draining oderless thick white pus - dry today Prominent muscle bulk loss R foot is icy cold and cyanotic to touc Black eschcar on the heel NEUROLOGICAL: Awake and alert. Confused. Moves all estremeties PSYCHIATRIC: calm, Assessment and Plan - Plan UTI, grew MRSA PVD sp L AKA and with R heel chronic ulcer, critical ischemia and essentaill early dry gangreene of R foot vascular surgeon recommended R AKA, pt refused R hip drainage x 1 yr probably sinus tract and chronic osteo MRSA clx + - CT wo contrast confirmed intramedullary rina, no s/o osteo or sinus tract Abnormal CXR, can not excude PNA - no infiltrates, just effusions on the CXR CKD Hematuria Severe leukocytosis - probably from R foot NM scan - pt refused earlier, now agreable. If scan + will need to have ortho involved dc levaquine - doubt PNA cont vanco Monitor renal fnx. Will not use dapto, pt reportedly has issues with it in the past danny delgado family member @ b/[facility]
[2018-08-22] MEDS: Mirtazapine 15 MG Tablet PO SCH (21:58)
[2018-08-23] MEDS: hydrALAZINE 10 MG Tablet PO SCH ×3 (02:27→19:20)
[2018-08-23] MEDS: Acetaminophen/Codeine 300/30 MG Tablet PO PRN ×2 (05:02→21:54)
[2018-08-23 08:23] LABS: Vancomycin,Random 10.7 Comment
[2018-08-23] MEDS ORDERED: Lidocaine 1%/Epinephrine 1:100,000 Inj 30 ML Vial ONE (08:28)
[2018-08-23] MEDS ORDERED: *Heparin Central Flush 100 UNIT/ML 5 ML Vial PERIprocedural ONLY IV.FLUSH ONE (08:28)
[2018-08-23] MEDS ORDERED: fentaNYL Citrate Inj 250 MCG/5 ML Ampul ONE (08:42)
[2018-08-23] MEDS: Multivitamin/Minerals Therapeutic Tablet PO SCH (09:00)
[2018-08-23] MEDS: Sertraline 50 MG Tablet PO SCH (09:00)
[2018-08-23] MEDS: Hydroxychloroquine 200 MG Tablet PO SCH (09:00)
[2018-08-23] MEDS: amLODIPine 10 MG Tablet PO SCH (09:39)
--- NOTE | 2018-08-23 09:42 | P.RAD ---
Post Procedure Progress Note - Pre Procedure Diagnosis (1) Ulcer of heel - Post Procedure Diagnosis (1) Ulcer of heel - Procedure Information Procedure Date: 08/23/18 Supervising Radiologist: Carlitos Maya MD Estimated blood loss (mL): 4 - Plan of Activity Patient to Unit: [facility] Patient Condition: Poor Additional Comments: right Subclavian Reynolds Placed catheter had to be placed lateraly du to lack of sub q tissue on the chest wall. full report to follow See PACS Report for procedural detail/treatment.
[2018-08-23] MEDS: Dextrose 5%/NaCl 0.9% Inj 1,000 ML IV.CONT SCH ×2 (10:00→19:21)
[2018-08-23] MEDS: Metoprolol Tartrate 25 MG Tablet PO SCH (11:00)
--- NOTE | 2018-08-23 11:01 | IR ---
EXAM DATE: 08/23/2018 12:00 AM EDT AGE/SEX: 73 years / Female INDICATIONS: Patient with history of chronic kidney disease presents with chronic wounds post above left knee amputation in need of tunneled central venous catheter for antibiotic administration. CLINICAL DATA: This is the patient's initial encounter. Patient reports that signs and symptoms have been present for 1 week and indicates a pain score of 0/10. MEDICAL/SURGICAL HISTORY: Hypertension. Anxiety, Chronic Kidney Disease Stage III, CAD, Failure to thrive, Peripheral Vascular Disease, Protein-calorie malnutrition. Coronary artery stent. Amputa tion of extremity. COMPARISON: No prior exams available for comparison. FLUORO TIME (min): 4.23 IMAGE SERIES: 2 SEDATION TIME (min): 30 MEDICATION(S): 1 mg midazolam (Versed) IV 50 mcg fentanyl (Sublimaze) IV Prophylactic antibiotics were administered with appropriate pre-procedure timing. Vancomycin within 2 hrs of procedure, Ancef (or alternative) within 1 hr of procedure. DEVICE(S): Right 6.6 FR Reynolds PROCEDURE : 1. Fluoroscopic guidance. 2. Reynolds catheter placement 3. Conscious sedation with continuous EKG and oximetry monitoring. The risks, benefits and alternatives to the procedure were explained and verbal and written consent w as obtained. The site was prepped in sterile fashion. Full sterile technique was used, including ca p, mask, sterile gloves and gown and a large sterile sheet. Hand hygiene and 2% chlorhexidine and Be tadine was utilized per protocol for cutaneous antisepsis with appropriate dry time for site. The patient was examined prior to the procedure. Due to the patient's small size the catheter cannot be placed within the internal jugular vein. There was insufficient soft tissues to place the catheter over the central aspect of the chest. The decision was made to place the catheter along the lateral aspect of the chest wall via the subclavian vein. The skin and subcutaneous tissues were infiltrated with local anesthetic solution. With fluoroscopic guidance a dermatotomy was created over the right subclavian vein. A micropuncture set was used to access to the subclavian vein and serial dilatation was performed to accept a Hickma n catheter. A subcutaneous tunnel was created and in antegrade fashion the catheter was pulled throu gh the tunnel, cut to the appropriate length and place through the sheath. The catheter was locked w ith heparin and sutured in place. Conscious sedation was performed with the prescribed dosages and duration as above in the presence of an independent trained radiology nurse to assist in the monitoring of the patient. EKG and oximetry remained stable throughout the procedure. The patient tolerated the procedure well and there were no complications. The patient was sent to post anesthesia recovery in stable condition. CONCLUSION: 1. Uncomplicated Reynolds catheter placement as above. Electronically signed by: Carlitos Maya MD 08/23/2018 11:00 AM EDT
--- NOTE | 2018-08-23 14:40 | P.PNPAL ---
Reason for Visit Reason for visit: a. To assist with evaluation and management of symptoms including: Pain, decreased oral intake, debility b. To assist medical decision maker(s) with: better understanding of current medical conditions; weighing benefits/burdens of medical treatment options; making medical treatment decisions. Subjective Subjective/Interval History: Follow-up medically necessary for symptom management. Patient seen and examined in her room in the presence of her daughter Zo. Patient seen earlier on at 1200hrs. Patient underwent insertion of a Reynolds line to right subclavian by interventional radiology today 08/23/18. Patient is awake, oriented to self only and hallucinating-restless and picking on invisible things. Patient denies pain and is not showing signs of pain. Per daughter since she came back from the procedure she has been confused and has been hallucinating. Patient has worsening leucocytosis. Kidney function worsening- 08/23/18 bun/creat=46/2.33 Discussed patient`s current medical status with patient`s daughter Zo - [facility]. Her other sister Sacha ([facility]) is out of town. According to patient` s daughter, Zo- her sister Sacha ([facility]) and herself are agreeable to proceeding with amputation of right lower extremity. Expressed concern that patient may continue to be faced with complications, considering ongoing comorbidities. Broached hospice option, discussed benefits of hospice if patient and family would opt for comfort oriented care only. It appears that at this time family is not ready for hospice. They would like patient to proceed with amputation and have her discharged home though patient`s daughter Zo who is patient`s primary caregiver seems to already have caregiver fatigue. Patient`s daughter Zo (Alternate [facility]) signed patient`s State of [facility]. Family/Friend Interactions: See interval note Advance Directives Living Will: Never completed Health Care Surrogate: Copy in medical record Durable Power of Wildlife Technician: Never completed Advance Directives Date on File: 05/22/18 Health Care Surrogate Name and Number: [facility]: Suyapa Goncalves [phone] Alt: Bola Pathak- [phone] Objective Vital Signs: Vital Signs 08/22/18 16:00 08/22/18 20:00 08/23/18 00:00 Temperature 98 F 98.3 F 98.4 F Pulse Rate 71 78 80 Respiratory Rate 18 18 18 Blood Pressure 126/56 L 123/57 L 132/60 Pulse Oximetry 92 L 90 L 90 L 08/23/18 04:00 08/23/18 10:00 08/23/18 10:15 Temperature 98.5 F Pulse Rate 88 93 H 93 H Respiratory Rate 22 22 Blood Pressure 93/67 L 107/62 Pulse Oximetry 93 L 92 L 08/23/18 10:45 Temperature Pulse Rate 95 H Respiratory Rate 22 Blood Pressure 110/52 L Pulse Oximetry 92 L Intake & Output 08/22/18 08/23/18 08/23/18 18:59 06:59 18:59 Intake Total 980 / 980 Balance 980 / 980 Intake: Oral 980 / 980 Other: # Voids 6 # Incontinent Voids 1 Date of Last Bowel Movement 08/21/18 08/21/18 # Bowel Movements 0 Physical Exam: CONSTITUTIONAL/GENERAL: This is an elderly, chronically ill, cachectic patient with obvious muscle wasting, and bony prominences, in no acute distress. TUBES/LINES/DRAINS: PIV SKIN: No jaundice, rashes, or lesions. Ecchymoses on upper extremities. Wounds to right foot and right hip. Skin temperature appropriate. Not diaphoretic. HEAD: Atraumatic. Normocephalic. EYES: PERRLA. Fundi not examined. ENT: Hearing grossly normal. No nasal bleeding or drainage. Moist oral mucosa NECK: Trachea midline. Supple, nontender. CARDIOVASCULAR: S1, S2 normal, no gallops, or rubs. No JVD. Peripheral pulses symmetric. RESPIRATORY/CHEST: Symmetric, unlabored respirations. Clear to auscultation. Breath sounds equal bilaterally. No wheezes, rales, or rhonchi. GASTROINTESTINAL: Abdomen soft, non-tender, nondistended. No guarding. Bowel sounds present. GENITOURINARY: Without palpable bladder distension. MUSCULOSKELETAL: Extremities without clubbing, or edema. some toes not fully covered with dressing appear necrotic. No mottling or clubbing. NEUROLOGICAL: Awake, oriented to self only and confused. Moves all extremities. PSYCHIATRIC: Patient hallucinating- reaching out for invisible objects. Restless - recently came from Reynolds line infusion. Diagnostic Tests Laboratory: Laboratory Results - last 72 hr 08/20/18 08/21/18 08/22/18 20:19 08:08 06:09 WBC 20.8 H RBC 2.86 L Hgb 8.2 L Hct 25.9 L MCV 90.5 MCH 28.6 MCHC 31.6 L RDW 17.9 H Plt Count 335 MPV 6.9 L Neut % (Auto) 85.2 H Lymph % (Auto) 5.2 L Dyer % (Auto) 7.1 Eos % (Auto) 1.9 Baso % (Auto) 0.6 Neut # (Auto) 17.7 H Lymph # (Auto) 1.1 Dyer # (Auto) 1.5 H Eos # (Auto) 0.4 Baso # (Auto) 0.1 WBC Differential . Differential Comment Auto diff final Sodium Potassium Chloride Carbon Dioxide Anion Gap BUN Creatinine Estimated GFR POC Glucose 125 H Random Glucose Calcium Prot Corrected Calcium Phosphorus Magnesium Total Protein Random Vancomycin 17.9 08/22/18 08/23/18 06:09 07:13 WBC RBC Hgb Hct MCV MCH MCHC RDW Plt Count MPV Neut % (Auto) Lymph % (Auto) Dyer % (Auto) Eos % (Auto) Baso % (Auto) Neut # (Auto) Lymph # (Auto) Dyer # (Auto) Eos # (Auto) Baso # (Auto) WBC Differential Differential Comment Sodium 137 Potassium 5.2 H Chloride 111 H Carbon Dioxide 15.3 L Anion Gap 11 BUN 40 H 46 H Creatinine 2.13 H 2.33 H Estimated GFR 23 L 20 L POC Glucose Random Glucose 56 L Calcium 7.3 L* Prot Corrected Calcium 7.8 L Phosphorus 4.8 Magnesium 2.1 Total Protein 6.2 L D Random Vancomycin 15.0 10.7 Result Diagrams: 08/22/18 06:09 08/23/18 07:13 Microbiology: Microbiology 08/15/18 17:20 Aerobic Blood Culture - Final Blood - Other No growth in 5 days Anaerobic Blood Culture - Final No growth in 5 days Imaging: Hip CT 08/15/18 00:00 CONCLUSION: 1. Previous internal fixation. 2. No definite evidence for osteomyelitis. 3. Old fractures in the pelvis bilaterally. Chest X-Ray 08/15/18 06:00 CONCLUSION: Small bilateral pleural effusions left greater than right. No infiltrate or mass. Femur MRI 08/21/18 07:00 CONCLUSION: 1. There is some thickening and induration of the subcutaneous soft tissues along the posterior aspect of the upper right thigh. 2. No definite loculated fluid collections are demonstrated to suggest a drainable abscess. Reynolds Line Insertion 08/23/18 00:00 CONCLUSION: 1. Uncomplicated Reynolds catheter placement as above. Procedures: 08/23/18-Reynolds line incision to right subclavian . Assessment and Plan - Disease Oriented Problem List (1) RADHA (acute kidney injury) (2) Urinary tract infection (3) Coronary artery disease (4) Severe peripheral arterial disease (5) Hypertension (6) Dehydration (7) Pressure ulcer, hip (8) Ulcer of heel (9) Depression - Symptom Scale (1) Pain 0-10 Scale: Unable to quantify Comment: Patient has chronic wounds to right lower extremity and right hip. (2) Decreased oral intake 0-10 Scale: Unable to quantify Comment: Patient endorsing nausea, and decreased oral intake. (3) Debility 0-10 Scale: Unable to quantify Comment: Progressive. Pertinent Non-Medical Issues: Psychosocial: Patient is originally from [place]. Patient moved to [place] in 2016. She spent most of a life in [place]. Patient is . She has 2 adult daughters. 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 Spiritual: Patient is Mandaen. Clinical Audiologist Isac already visited with patient. Legal: Patient Completed healthcare surrogate form 05/22/18 Ethical issues impacting care: None identified at this time. Important Contacts: Healthcare bzastvlsg-prlzznat-Iuvi, [place] [phone] Alternate healthcare slyhxhtme-iawymagc-Fhzud, [place]- [phone] Prognosis: Mrs. Smith is a 73 years old female with a medical history significant for peripheral vascular disease status post left above-knee amputation, coronary artery disease, chronic lower extremity wounds, anemia, CHF, COPD, lupus, hypertension and history of DVT. Patient presented to the ER on 08/13/18 in the company of her family with complaints of weakness, dizziness in the past 36 hours prior to presentation ER. Clinical course complicated with renal insufficiency, MRSA urinary tract infection, chronic wounds to right lower extremity with unreconstructable disease and MRSA in wounds, pain, severe protein calorie malnourishment. Given ongoing multiple comorbidities, patient remains at high risk for further complications, deterioration and decline. Code Status: No Code DNR Plan: PLAN: Legal decision maker:Patient is able to participate in medical decision making. In the event that she is incapacitated she has designated her daughter Sacha Dale as her healthcare surrogate and her other daughter Zo Plaza is her alternate healthcare surrogate Goals: Aggressive short on no code. Discussed patient`s current medical status with patient`s daughter Zo -[facility]. Her other sister Sacha ([facility] ) is out of town. According to patient`s daughter, Zo- her sister Sacha ([facility]) and herself are agreeable to proceeding with amputation of right lower extremity. Expressed concern that patient may continue to be faced with complications, considering ongoing comorbidities. Broached hospice option, discussed benefits of hospice if patient and family would opt for comfort oriented care only. It appears that at this time family is not ready for hospice. They would like patient to proceed with amputation and have her discharged home though patient`s daughter Zo who is patient`s primary caregiver seems to already have caregiver fatigue. CODE STATUS: No Code DNR/DNI SYMPTOMS: * Pain: Patient has severe PVD and chronic wounds to right foot and right hip- positive for MRSA. Vascular surgeon has recommended amputation. Wound care following. Patient currently his morphine sulfate 2 mg IV push every 4 hours prn and oxycodone/acetaminophen 5/325 every 4 hours prn for breakthrough pain. Pain appears to be adequately managed with current medication regimen. Continue to monitor for pain. * Decreased oral intake: Patient complains of nausea all the times, hence decreased oral intake. Patient gets Ensure with every meal. Encouraged patient to request anti-nausea medication prior to meals. Family bringing in food for patient and it appears that she is at least eating some of the food. * Nausea: Patient complains of nausea all the times. Zofran available. Currently denying pain. Assess for nausea prior to meals. * Debility: Progressive. Patient has had multiple hospitalizations. She has severe PVD which led to left AKA in April 2018. Patient has been receiving physical therapy at home. Patient now his chronic wounds to right lower extremity, which vascular surgeon has recommended amputation. Patient appears debilitated, weak and has lost significant amount of weight and will most likely not participate effectively in physical therapy. Palliative care will continue to follow the patient during hospital course as condition evolves, to assist patient/decision-maker with understanding of their medical conditions, weighing benefits/burdens of treatment options, for clarification of goals of treatment. Additionally will assist with any symptoms of palliative concern Attestation Attestation: To help prompt me to consider important information that might be impacting today's encounter and assessment, information from prior notes written by myself or my colleagues may have been "brought forward" into today's note. My signature on this note, however, is an attestation that I personally performed the exam, history, and/or decision-making noted today, and, unless otherwise indicated, the interactions with patient, family, and staff as well as the review of records all occurred today. I also attest that the listed assessment and stated plan reflect my best clinical judgment today based on the combination of historical information, prior notes, and today's exam/ interactions. When time spent is documented, it refers only to time spent today by the signer, or if indicated, combined time spent today by collaborating physician/nurse practitioner.
--- NOTE | 2018-08-23 15:48 | P.PN ---
Subjective Interval history: Follow-up right foot gangrene August 23, 2018-patient seen and examined; complaint of left foot pain. Family by the bedside. Patient now wants foot amputation. Afebrile. Had Reynolds catheter placed this morning. Physical Exam Vital signs: Vital Signs 08/22/18 16:00 08/22/18 20:00 08/23/18 00:00 Temperature 98 F 98.3 F 98.4 F Pulse Rate 71 78 80 Respiratory Rate 18 18 18 Blood Pressure 126/56 L 123/57 L 132/60 Pulse Oximetry 92 L 90 L 90 L 08/23/18 04:00 08/23/18 08:00 08/23/18 10:00 Temperature 98.5 F Pulse Rate 88 95 H 93 H Respiratory Rate 22 Blood Pressure 93/67 L Pulse Oximetry 93 L 08/23/18 10:15 08/23/18 10:45 Temperature Pulse Rate 93 H 95 H Respiratory Rate 22 22 Blood Pressure 107/62 110/52 L Pulse Oximetry 92 L 92 L Intake & Output 08/22/18 08/23/18 08/23/18 18:59 06:59 18:59 Intake Total 980 / 980 Balance 980 / 980 Intake: Oral 980 / 980 Other: # Voids 6 # Incontinent Voids 1 Date of Last Bowel Movement 08/21/18 08/21/18 # Bowel Movements 0 Narrative: GENERAL: No distress. SKIN: Warm and dry. HEAD: Atraumatic. Normocephalic. EYES: Pupils equal and round. No scleral icterus. No injection or drainage. ENT: No nasal bleeding or discharge. Mucous membranes pink and moist. NECK: Trachea midline. No JVD. CARDIOVASCULAR: Regular rate and rhythm. S1-S2 no S3 or S4. RESPIRATORY: No accessory muscle use. Clear to auscultation. Breath sounds equal bilaterally. GASTROINTESTINAL: Abdomen soft, non-tender, nondistended. Hepatic and splenic margins not palpable. MUSCULOSKELETAL: Extremities without clubbing, cyanosis, or edema. No obvious deformities. Left [id number] amputation. Right foot bandaged. NEUROLOGICAL: Awake and alert. No obvious cranial nerve deficits. Motor grossly within normal limits. 4 out of 5 muscle strength in the arms and 4/5 in right leg. Not able to bear weight on the right lower extremity at all. Normal speech. Results - Labs CBC & Chem 7: 08/22/18 06:09 08/23/18 07:13 Laboratory Results - last 24 hr 08/23/18 07:13 BUN 46 H Creatinine 2.33 H Estimated GFR 20 L Random Vancomycin 10.7 - Imaging Impressions Reynolds Line Insertion 08/23/18 00:00 CONCLUSION: 1. Uncomplicated Reynolds catheter placement as above. Assessment and Plan - Assessment (1) RADHA (acute kidney injury) Code(s): N17.9 - Acute kidney failure, unspecified Status: Acute (2) Acute UTI Code(s): N39.0 - Urinary tract infection, site not specified Status: Acute (3) Dehydration Code(s): E86.0 - Dehydration Status: Acute (4) Pressure ulcer, hip Code(s): L89.209 - Pressure ulcer of unspecified hip, unspecified stage Status : Acute (5) Severe peripheral arterial disease Code(s): I73.9 - Peripheral vascular disease, unspecified Status: Acute (6) Ulcer of heel Code(s): L97.409 - Non-pressure chronic ulcer of unspecified heel and midfoot with unspecified severity Status: Acute - Plan 73-year-old female with Urinary tract infection MRSA growing in urine. ID is following. Peripheral vascular disease MRSA wound infection Patient has a history of left AKA. Vascular surgery is currently following the patient. Wound care physician has also been consulted. Wound culture growing MRSA. MRI of right hip without obvious infection. -Follow up with vascular surgery, patient is now willing for right foot amputation -palliative care ff -Appreciate input from ID and continue vancomycin pending culture report -Patient is now willing to have NM scan Renal insufficiency/stage III chronic kidney disease/dehydration -follow BMP as needed and avoid nephrotoxins. Hypocalcemia/Hypomagnesemia/Hypokalemia/Hyponatremia -Improved. -monitor. Failure to thrive/protein calorie malnourishment severe S/t gastroparesis. -continue on mirtazapine to help with appetite stimulation. Coronary artery disease Stable at this time. -continue on Plavix and apixaban. Tobacco abuse Chronic. -recommend smoking cessation. Anemia Chronic. On apixaban. Hemoccult positive. -follow CBC. Stable. -consider GI work-up as outpt as hemoglobin is stable. Hypoglycemia S/t decreased PO intake. -encourage nutrition. -D5NS. PPx: Apixaban
[2018-08-23] MEDS: Senna/Docusate Sodium 8.6/50 MG Tablet PO SCH ×2 (17:39→21:59)
[2018-08-23] MEDS: Mirtazapine 15 MG Tablet PO SCH (21:55)
[2018-08-24] MEDS: Metoprolol Tartrate 25 MG Tablet PO SCH ×2 (00:44→13:38)
[2018-08-24 01:14] LABS: ABG Base Excess -12.4 mmol/L (-2-2); ABG PCO2 31 mmHg (38-42); ABG PO2 55 mmHg (61-120)
[2018-08-24] MEDS: Morphine Inj 4 MG/ML Vial IV.PUSH PRN (01:52)
[2018-08-24] MEDS ORDERED: Sodium Bicarbonate 8.4% Inj 50 MEQ/50 ML Syringe IV.PUSH ONE (01:52)
--- NOTE | 2018-08-24 02:18 | XR ---
EXAM DATE: 08/24/2018 12:00 AM EDT AGE/SEX: 73 years / Female INDICATIONS: Respiratory failure. CLINICAL DATA: This is the patient's initial encounter. Patient reports that signs and symptoms have been present for 1 day and indicates a pain score of Nonresponsive. MEDICAL/SURGICAL HISTORY: . Renal disease. Cardiovascular disease. Deep venous thrombosis. Co ronary artery stent. COMPARISON: [facility] – [place], CHEST 1V SINGLE AP, 08/15/2018. . FINDINGS: There is worsening bilateral perihilar and basilar consolidation. A small left pleural effusion is pr esent, appears larger. No pneumothorax. Heart size stable, within normal limits. There is a right subclavian central venous catheter with tip at the atriocaval junction which is new. CONCLUSION: Worsening bibasilar consolidation and small left effusion. Electronically signed by: Chaim Cee MD 08/24/2018 2:16 AM EDT
[2018-08-24 02:36] LABS: Calcium 7.6 mg/dL (8.5-10.1); Carbon Dioxide 17.3 meq/L (21.0-32.0); Potassium 5.1 meq/L (3.5-5.1)
[2018-08-24 02:37] LABS: Vancomycin,Random 25.4 Comment
[2018-08-24] MEDS: Acetaminophen/Codeine 300/30 MG Tablet PO PRN (03:57)
[2018-08-24] MEDS: Sodium Bicarbonate 8.4% Inj 150 MEQ in Dextrose 5% in Water Inj 850 ML IV.CONT SCH ×4 (03:57→19:09)
[2018-08-24] MEDS: hydrALAZINE 10 MG Tablet PO SCH ×3 (04:09→20:34)
[2018-08-24] MEDS ORDERED: Piperacil/Tazo 3.375 GM Premix 50 ML IV.SIG SCH (05:00)
[2018-08-24 05:09] LABS: Baso # (Auto) 0.1 th/mm3 (0.0-0.2); Baso % (Auto) 0.3 % (0.0-2.0); Eos % (Auto) 0.1 % (0.0-4.0); Lymph # (Auto) 0.8 th/mm3 (1.0-4.8); Lymph % (Auto) 2.5 % (9.0-44.0); Mean Corpuscular HGB Conc 31.3 % (32.0-36.0); Mean Corpuscular Volume 89.6 fL (80.0-100.0); Mean Platelet Volume 6.8 fL (7.0-11.0); Mono # (Auto) 2.2 th/mm3 (0.0-0.9); Mono % (Auto) 7.2 % (0.0-8.0); Neut # (Auto) 27.7 th/mm3 (1.8-7.7); Neut % (Auto) 89.9 % (16.0-70.0); Platelet Count 363 th/mm3 (150-450); Red Blood Count 2.27 mil/mm3 (4.00-5.30); Red Cell Distribution Width 17.8 % (11.6-17.2); White Blood Count 30.8 th/mm3 (4.0-11.0)
[2018-08-24 05:36] LABS: Hematocrit 20.4 % (35.0-46.0); Hemoglobin 6.4 gm/dL (11.6-15.3)
[2018-08-24] MEDS ORDERED: Sodium Chlor 0.9% Inj 250 ML IV.SIG SCH (06:00)
[2018-08-24 06:10] LABS: Acanthocytes Occ; Ovalocytes 1+; Platelet Estimate Normal (Normal); Platelet Morphology Normal (Normal)
[2018-08-24] MEDS: Multivitamin/Minerals Therapeutic Tablet PO SCH (09:00)
[2018-08-24] MEDS: Senna/Docusate Sodium 8.6/50 MG Tablet PO SCH ×2 (09:00→21:38)
[2018-08-24] MEDS: Sertraline 50 MG Tablet PO SCH (09:00)
[2018-08-24] MEDS: amLODIPine 10 MG Tablet PO SCH (09:00)
--- NOTE | 2018-08-24 09:49 | P.PN ---
Subjective Interval history: Follow-up right foot gangrene August 23, 2018-patient seen and examined; complaint of left foot pain. Family by the bedside. Patient now wants foot amputation. Afebrile. Had Reynolds catheter placed this morning. August 24, 2018-patient seen and examined, currently on BiPAP which was ordered overnight. Patient is fidgety and agitated. Daughter by the bedside. Physical Exam Vital signs: Vital Signs 08/23/18 10:00 08/23/18 10:15 08/23/18 10:45 Temperature 98.5 F Pulse Rate 93 H 93 H 95 H Respiratory Rate 22 22 22 Blood Pressure 93/67 L 107/62 110/52 L Pulse Oximetry 93 L 92 L 92 L 08/23/18 20:00 08/24/18 00:00 08/24/18 00:28 Temperature 97.9 F 98.6 F Pulse Rate 95 H 100 H Respiratory Rate 16 14 Blood Pressure 133/67 104/54 L Pulse Oximetry 75 L 93 L 08/24/18 04:00 08/24/18 04:16 08/24/18 06:30 Temperature 99.1 F Pulse Rate 100 H 94 H Respiratory Rate 20 Blood Pressure 124/83 Pulse Oximetry 90 L 08/24/18 07:52 Temperature Pulse Rate Respiratory Rate Blood Pressure Pulse Oximetry 97 Intake & Output 08/23/18 08/24/18 08/24/18 18:59 06:59 18:59 Intake Total 110 / 110 Balance 110 / 110 Weight 36 kg Intake: IV 50 / 50 Zosyn 3.375 GM Premix 50 ML @ 50 / 50 100 mls/hr IV.SIG Q6H [facility] Rx#: [id number] Oral 60 / 60 Narrative: GENERAL: BIPAP on SKIN: Warm and dry. HEAD: Atraumatic. Normocephalic. EYES: Pupils equal and round. No scleral icterus. No injection or drainage. ENT: No nasal bleeding or discharge. Mucous membranes pink and moist. NECK: Trachea midline. No JVD. CARDIOVASCULAR: Regular rate and rhythm. S1-S2 no S3 or S4. RESPIRATORY: No accessory muscle use. Clear to auscultation. Breath sounds equal bilaterally. GASTROINTESTINAL: Abdomen soft, non-tender, nondistended. Hepatic and splenic margins not palpable. MUSCULOSKELETAL: Extremities without clubbing, cyanosis, or edema. No obvious deformities. Left [id number] amputation. Right foot bandaged. NEUROLOGICAL: Awake and alert. No obvious cranial nerve deficits. Motor grossly within normal limits. 4 out of 5 muscle strength in the arms and 4/5 in right leg. Not able to bear weight on the right lower extremity at all. Normal speech. Results - Labs CBC & Chem 7: 08/24/18 04:45 08/24/18 02:12 Laboratory Results - last 24 hr 08/24/18 08/24/18 08/24/18 01:01 02:12 04:45 WBC 30.8 H RBC 2.27 L Hgb 6.4 L* Hct 20.4 L* MCV 89.6 MCH 28.0 MCHC 31.3 L RDW 17.8 H Plt Count 363 MPV 6.8 L Prelim Diff (Auto) Slide review pending Neut % (Auto) 89.9 H Lymph % (Auto) 2.5 L Robeson % (Auto) 7.2 Eos % (Auto) 0.1 Baso % (Auto) 0.3 Neut # (Auto) 27.7 H Lymph # (Auto) 0.8 L Robeson # (Auto) 2.2 H Eos # (Auto) 0.0 Baso # (Auto) 0.1 WBC Differential . Diff Scan Auto diff confirmed Differential Comment . Platelet Estimate Normal Platelet Morphology Normal Ovalocytes 1+ H Acanthocytes (Spur) Occ H Keratocytes Occ H Puncture Site Right brachial Patient Temperature 98.6 O2 Saturation 86 L* ABG pH 7.26 L* ABG pCO2 31 L ABG pO2 55 L* ABG HCO3 13 L* ABG O2 Content 7.5 L ABG Base Excess -12.4 L ABG Methemoglobin 1.2 Emre Test Present Hemoglobin 6.1 L* Carboxyhemoglobin 1.3 O2 Delivery Device Nrb Liter Flow 15.00 Critical Value Yes Sodium 143 Potassium 5.1 Chloride 113 H Carbon Dioxide 17.3 L Anion Gap 13 BUN 49 H Creatinine 2.51 H Estimated GFR 19 L Random Glucose 115 H Calcium 7.6 L B-Natriuretic Peptide Random Vancomycin 25.4 Blood Type Antibody Screen MTS Gel Crossmatch Bld Prod Order Comment 08/24/18 08/24/18 04:45 06:30 WBC RBC Hgb Hct MCV MCH MCHC RDW Plt Count MPV Prelim Diff (Auto) Neut % (Auto) Lymph % (Auto) Robeson % (Auto) Eos % (Auto) Baso % (Auto) Neut # (Auto) Lymph # (Auto) Robeson # (Auto) Eos # (Auto) Baso # (Auto) WBC Differential Diff Scan Differential Comment Platelet Estimate Platelet Morphology Ovalocytes Acanthocytes (Spur) Keratocytes Puncture Site Patient Temperature O2 Saturation ABG pH ABG pCO2 ABG pO2 ABG HCO3 ABG O2 Content ABG Base Excess ABG Methemoglobin Emre Test Hemoglobin Carboxyhemoglobin O2 Delivery Device Liter Flow Critical Value Sodium Potassium Chloride Carbon Dioxide Anion Gap BUN Creatinine Estimated GFR Random Glucose Calcium B-Natriuretic Peptide 2924 H Random Vancomycin Blood Type AB Negative Antibody Screen Negative MTS Gel Crossmatch See Detail Bld Prod Order Comment - Imaging Impressions Reynolds Line Insertion 08/23/18 00:00 CONCLUSION: 1. Uncomplicated Reynolds catheter placement as above. Chest X-Ray 08/24/18 00:00 CONCLUSION: Worsening bibasilar consolidation and small left effusion. Assessment and Plan - Assessment (1) RADHA (acute kidney injury) Code(s): N17.9 - Acute kidney failure, unspecified Status: Acute (2) Acute UTI Code(s): N39.0 - Urinary tract infection, site not specified Status: Acute (3) Dehydration Code(s): E86.0 - Dehydration Status: Acute (4) Pressure ulcer, hip Code(s): L89.209 - Pressure ulcer of unspecified hip, unspecified stage Status : Acute (5) Severe peripheral arterial disease Code(s): I73.9 - Peripheral vascular disease, unspecified Status: Acute (6) Ulcer of heel Code(s): L97.409 - Non-pressure chronic ulcer of unspecified heel and midfoot with unspecified severity Status: Acute - Plan 73-year-old female with Urinary tract infection MRSA growing in urine. ID is following. Acute respiratory failure -Currently BiPAP on, consult pulmonary medicine -Continue with DuoNeb as needed, consider Solu-Medrol treatment Peripheral vascular disease MRSA wound infection Patient has a history of left AKA. Vascular surgery is currently following the patient. Wound care physician has also been consulted. Wound culture growing MRSA. MRI of right hip without obvious infection. -Follow up with vascular surgery, patient is now willing for right foot amputation -palliative care ff -Appreciate input from ID and continue vancomycin pending culture report -Patient is now willing to have NM scan Renal insufficiency/stage III chronic kidney disease/dehydration -follow BMP as needed and avoid nephrotoxins. Hypocalcemia/Hypomagnesemia/Hypokalemia/Hyponatremia -Improved. -monitor. Failure to thrive/protein calorie malnourishment severe S/t gastroparesis. -continue on mirtazapine to help with appetite stimulation. Coronary artery disease Stable at this time. -continue on Plavix and apixaban. Tobacco abuse Chronic. -recommend smoking cessation. Anemia Patient will require 2 unit blood transfusion during hemodialysis today August 16, 2018 Chronic. On apixaban. Hemoccult positive. -follow CBC. -consider GI work-up as outpt as hemoglobin is stable. Hypoglycemia S/t decreased PO intake. -encourage nutrition. -D5NS. PPx: Apixaban
--- NOTE | 2018-08-24 10:12 | NM ---
EXAM DATE: 08/23/2018 12:00 AM EDT AGE/SEX: 73 years / Female INDICATIONS: Sinus tract infection and hardware infection of right hip. CLINICAL DATA: This is the patient's initial encounter. Patient reports that signs and symptoms have been present for 2 days and indicates a pain score of 2/10. MEDICAL/SURGICAL HISTORY: Hypertension. Renal disease, end stage. Lupus. Coronary artery sten t. Parathyroidectomy, bilateral hip surgery, and left below the knee amputation. COMPARISON: [facility], WBC WB CERETEC, 09/07/2017. . DOSE: 21.2 mCi Tc99m Ceretec labeled white blood cells IV IMAGING TIMES: 30 min 3 hr TECHNIQUE: Following the in vitro labeling of autologous white cells and reinjection, whole body sca n was performed at specified times. FINDINGS: 30 minute post and 3 hour post whole body imaging was obtained. There has been interval left above kn ee amputation. Activity is visualized most prominently in the liver and spleen on both imaging data s ets, as expected. There is some lung and blood pool activity remaining. No focal area of abnormal act ivity is identified. CONCLUSION: No focal area of abnormal activity is identified. Electronically signed by: Chaim Lara MD 08/24/2018 10:11 AM EDT
[2018-08-24] MEDS: Dextrose 5%/NaCl 0.9% Inj 1,000 ML IV.CONT SCH (10:30)
[2018-08-24] MEDS: Hydroxychloroquine 200 MG Tablet PO SCH (12:21)
[2018-08-24] MEDS ORDERED: Piperacil/Tazo 2.25 GM Premix 50 ML IV.SIG SCH ×2 (13:00→17:00)
--- NOTE | 2018-08-24 15:30 | P.DIET ---
Nutritional Evaluation Type of nutrition evaluation: follow-up Nutrition screening: MDC (Malnutrition) Subjective Subjective Comments: Usually eating 50% at best. Pt is now willing to have a R foot amp. Objective - Diagnosis UTI, RADHA, Dehydration - Objective % IBW: 77 (97#) Body Weight Used for Calculations: IBW (44 kg) Energy Needs - Lower Range (kCal/kg): 32 Energy Needs - Upper Range (kCal/kg): 36 Lower Limit kCal/kg (kCals): 1,408 Upper Limit kCal/kg (kCals): 1,584 Lower Limit Protein Factor (Grams per Kg): 1.2 Upper Limit Protein Factor (Grams per Kg): 1.6 Lower Protein Needs (Protein): 53 Upper Protein Needs (Protein): 70 Dietitian Reviewed in Medical Record: Current diet, Curent medications, Intake & Output, Labs, Medical history, Wound/DTI Diet Order: Regular with Ensure Enlive on trays Objective Comments: Dmitriy FERNANDES (05/22/18) 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 Pt will continue to receive Ensure Enlive tid. Pt is able to make food preferences known when ordering. Labs, meds, wts and clinical course reviewed. Pt is receiving MVI/min now and remeron which may help with appetite. Marinol may work better. CBW = 36 kg which is an increase from admission wt. Recommendations: 1. Diet as ordered with Ensure Enlive tid 2. Consider Marinol 3. Please record % of meal eaten in EMR Feeding Assessment Dietitian to Monitor: Lab values, Supplement acceptance, Intake & Output, Diet tolerance, Weight change, PO Intake, Wound/skin status, Medical course
--- NOTE | 2018-08-24 15:47 | P.PNPAL ---
Reason for Visit Reason for visit: a. To assist with evaluation and management of symptoms including: Pain, decreased oral intake, debility b. To assist medical decision maker(s) with: better understanding of current medical conditions; weighing benefits/burdens of medical treatment options; making medical treatment decisions. Subjective Subjective/Interval History: Follow-up medically necessary for symptom management. Patient seen and examined in the room. Patient is lethargic, oriented to self, place and partially to situation. Patient continues to be restless,fidgeting pulling on her linen and is still hallucinating. Patient is currently on O2 4 L nasal cannula. She required BiPAP use overnight. ABG on 08/24/18 0100hrs pH 7.26, PCO2 31, PO2 55, HCO3 138, base excess -12.4, hemoglobin 6.1 and O2 saturation 86% on 15 L nonrebreather. Chest x-ray today 08/24/18 revealed worsening bibasilar consolidation and small left effusion. Persistent leukocytosis, with WBC 08/24/18 = 30.8, hemoglobin 6.4 , hematocrit 20.4, platelet count 363, sodium 143, potassium 5.1, BUN/ creatinine 49/2.51, random glucose 115, BNP 3924 -currently has 1 unit PRBCs transfusing via right subclavian Reynolds catheter. Case discussed with bedside RN. Family/Friend Interactions: No family at bedside Advance Directives Living Will: Never completed Health Care Surrogate: Copy in medical record Durable Power of Kettle Worker: Never completed Advance Directives Date on File: 05/22/18 Health Care Surrogate Name and Number: [facility]: Suyapa Goncalves [phone] Alt: Bola Pathak- [phone] Objective Vital Signs: Vital Signs 08/23/18 20:00 08/24/18 00:00 08/24/18 00:28 Temperature 97.9 F 98.6 F Pulse Rate 95 H 100 H Respiratory Rate 16 14 Blood Pressure 133/67 104/54 L Pulse Oximetry 75 L 93 L 08/24/18 04:00 08/24/18 04:16 08/24/18 06:30 Temperature 99.1 F Pulse Rate 100 H 94 H Respiratory Rate 20 Blood Pressure 124/83 Pulse Oximetry 90 L 08/24/18 07:52 08/24/18 08:00 08/24/18 10:53 Temperature 97.8 F 97.7 F Pulse Rate 90 91 H Respiratory Rate 18 18 Blood Pressure 144/76 H 127/78 Pulse Oximetry 97 82 L 08/24/18 11:15 08/24/18 14:56 Temperature 98.5 F Pulse Rate 92 H Respiratory Rate 18 Blood Pressure 150/71 H Pulse Oximetry 98 100 Intake & Output 08/23/18 08/24/18 08/24/18 18:59 06:59 18:59 Intake Total 110 / 110 400 / 400 Balance 110 / 110 400 / 400 Weight 36 kg Intake: IV 50 / 50 Zosyn 3.375 GM Premix 50 ML @ 50 / 50 100 mls/hr IV.SIG Q6H [facility] Rx#: [id number] Oral 60 / 60 Intake (Blood Product) Amt 400 / 400 Rbc As-3 Leukoreduced Unit 0 / 0 [id number] Rbc As-3 Leukoreduced Unit 400 / 400 [id number] Physical Exam: CONSTITUTIONAL/GENERAL: This is an elderly, chronically ill, cachectic patient with obvious muscle wasting, and bony prominences, in no acute distress. TUBES/LINES/DRAINS: PIV, right subclavian Reynolds catheter SKIN: No jaundice, rashes, or lesions. Ecchymoses on upper extremities. Wounds to right foot and right hip. HEAD: Atraumatic. Normocephalic. EYES: PERRLA. Fundi not examined. ENT: Hearing grossly normal. Moist oral mucosa. No nasal drainage NECK: Trachea midline. Supple, nontender. CARDIOVASCULAR: S1, S2 normal, no gallops, or rubs. No JVD. Peripheral pulses symmetric. RESPIRATORY/CHEST: Symmetric, unlabored respirations. Diminished breath sounds no wheezes, rales, or rhonchi. GASTROINTESTINAL: Abdomen soft, non-tender, nondistended. No guarding. Bowel sounds present. GENITOURINARY: Without palpable bladder distension. MUSCULOSKELETAL: Extremities without clubbing, or edema. Necrotic toes. No mottling or clubbing. NEUROLOGICAL: Awake, oriented to self only and confused. Moves all extremities. PSYCHIATRIC: Patient hallucinating-restless, fidgeting with constantly pulling her linen and picking invisible objects. Diagnostic Tests Laboratory: Laboratory Results - last 72 hr 08/22/18 08/22/18 08/23/18 06:09 06:09 07:13 WBC 20.8 H RBC 2.86 L Hgb 8.2 L Hct 25.9 L MCV 90.5 MCH 28.6 MCHC 31.6 L RDW 17.9 H Plt Count 335 MPV 6.9 L Prelim Diff (Auto) Neut % (Auto) 85.2 H Lymph % (Auto) 5.2 L Lipscomb % (Auto) 7.1 Eos % (Auto) 1.9 Baso % (Auto) 0.6 Neut # (Auto) 17.7 H Lymph # (Auto) 1.1 Lipscomb # (Auto) 1.5 H Eos # (Auto) 0.4 Baso # (Auto) 0.1 WBC Differential . Diff Scan Differential Comment Auto diff final Platelet Estimate Platelet Morphology Ovalocytes Acanthocytes (Spur) Keratocytes Puncture Site Patient Temperature O2 Saturation ABG pH ABG pCO2 ABG pO2 ABG HCO3 ABG O2 Content ABG Base Excess ABG Methemoglobin Emre Test Hemoglobin Carboxyhemoglobin O2 Delivery Device Liter Flow Critical Value Sodium 137 Potassium 5.2 H Chloride 111 H Carbon Dioxide 15.3 L Anion Gap 11 BUN 40 H 46 H Creatinine 2.13 H 2.33 H Estimated GFR 23 L 20 L Random Glucose 56 L Calcium 7.3 L* Prot Corrected Calcium 7.8 L Phosphorus 4.8 Magnesium 2.1 B-Natriuretic Peptide Total Protein 6.2 L D Random Vancomycin 15.0 10.7 Blood Type Antibody Screen MTS Gel Crossmatch Bld Prod Order Comment 08/24/18 08/24/18 08/24/18 01:01 02:12 04:45 WBC 30.8 H RBC 2.27 L Hgb 6.4 L* Hct 20.4 L* MCV 89.6 MCH 28.0 MCHC 31.3 L RDW 17.8 H Plt Count 363 MPV 6.8 L Prelim Diff (Auto) Slide review pending Neut % (Auto) 89.9 H Lymph % (Auto) 2.5 L Lipscomb % (Auto) 7.2 Eos % (Auto) 0.1 Baso % (Auto) 0.3 Neut # (Auto) 27.7 H Lymph # (Auto) 0.8 L Lipscomb # (Auto) 2.2 H Eos # (Auto) 0.0 Baso # (Auto) 0.1 WBC Differential . Diff Scan Auto diff confirmed Differential Comment . Platelet Estimate Normal Platelet Morphology Normal Ovalocytes 1+ H Acanthocytes (Spur) Occ H Keratocytes Occ H Puncture Site Right brachial Patient Temperature 98.6 O2 Saturation 86 L* ABG pH 7.26 L* ABG pCO2 31 L ABG pO2 55 L* ABG HCO3 13 L* ABG O2 Content 7.5 L ABG Base Excess -12.4 L ABG Methemoglobin 1.2 Emre Test Present Hemoglobin 6.1 L* Carboxyhemoglobin 1.3 O2 Delivery Device Nrb Liter Flow 15.00 Critical Value Yes Sodium 143 Potassium 5.1 Chloride 113 H Carbon Dioxide 17.3 L Anion Gap 13 BUN 49 H Creatinine 2.51 H Estimated GFR 19 L Random Glucose 115 H Calcium 7.6 L Prot Corrected Calcium Phosphorus Magnesium B-Natriuretic Peptide Total Protein Random Vancomycin 25.4 Blood Type Antibody Screen MTS Gel Crossmatch Bld Prod Order Comment 08/24/18 08/24/18 04:45 06:30 WBC RBC Hgb Hct MCV MCH MCHC RDW Plt Count MPV Prelim Diff (Auto) Neut % (Auto) Lymph % (Auto) Lipscomb % (Auto) Eos % (Auto) Baso % (Auto) Neut # (Auto) Lymph # (Auto) Lipscomb # (Auto) Eos # (Auto) Baso # (Auto) WBC Differential Diff Scan Differential Comment Platelet Estimate Platelet Morphology Ovalocytes Acanthocytes (Spur) Keratocytes Puncture Site Patient Temperature O2 Saturation ABG pH ABG pCO2 ABG pO2 ABG HCO3 ABG O2 Content ABG Base Excess ABG Methemoglobin Emre Test Hemoglobin Carboxyhemoglobin O2 Delivery Device Liter Flow Critical Value Sodium Potassium Chloride Carbon Dioxide Anion Gap BUN Creatinine Estimated GFR Random Glucose Calcium Prot Corrected Calcium Phosphorus Magnesium B-Natriuretic Peptide 2924 H Total Protein Random Vancomycin Blood Type AB Negative Antibody Screen Negative MTS Gel Crossmatch See Detail Bld Prod Order Comment Result Diagrams: 08/24/18 04:45 08/24/18 02:12 Imaging: Hip CT 08/15/18 00:00 CONCLUSION: 1. Previous internal fixation. 2. No definite evidence for osteomyelitis. 3. Old fractures in the pelvis bilaterally. Femur MRI 08/21/18 07:00 CONCLUSION: 1. There is some thickening and induration of the subcutaneous soft tissues along the posterior aspect of the upper right thigh. 2. No definite loculated fluid collections are demonstrated to suggest a drainable abscess. Reynolds Line Insertion 08/23/18 00:00 CONCLUSION: 1. Uncomplicated Reynolds catheter placement as above. WBC Scan Nuclear Medicine 08/23/18 00:00 CONCLUSION: No focal area of abnormal activity is identified. Chest X-Ray 08/24/18 00:00 CONCLUSION: Worsening bibasilar consolidation and small left effusion. Procedures: 08/23/18-Reynolds line incision to right subclavian . Assessment and Plan - Disease Oriented Problem List (1) RADHA (acute kidney injury) (2) Urinary tract infection (3) Coronary artery disease (4) Severe peripheral arterial disease (5) Hypertension (6) Dehydration (7) Pressure ulcer, hip (8) Ulcer of heel (9) Depression - Symptom Scale (1) Pain 0-10 Scale: 6 Comment: Patient has chronic wounds to right lower extremity and right hip. (2) Decreased oral intake 0-10 Scale: Unable to quantify Comment: Patient endorsing nausea, and decreased oral intake. (3) Debility 0-10 Scale: Unable to quantify Comment: Progressive. Pertinent Non-Medical Issues: Psychosocial: Patient is originally from [place]. Patient moved to [place] in 2016. She spent most of a life in [place]. Patient is . She has 2 adult daughters. 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 Spiritual: Patient is Religious. English Faculty Member Isac already visited with patient. Legal: Patient Completed healthcare surrogate form 05/22/18 Ethical issues impacting care: None identified at this time. Important Contacts: Healthcare gwludfrbx-vxmknisa-Iohr, Teal [phone] Alternate healthcare pxpgjsltz-bmxbhvet-Ggpmx, B[place]- [phone] Prognosis: Mrs. Smith is a 73 years old female with a medical history significant for peripheral vascular disease status post left above-knee amputation, coronary artery disease, chronic lower extremity wounds, anemia, CHF, COPD, lupus, hypertension and history of DVT. Patient presented to the ER on 08/13/18 in the company of her family with complaints of weakness, dizziness in the past 36 hours prior to presentation ER. Clinical course complicated with renal insufficiency, MRSA urinary tract infection, chronic wounds to right lower extremity with unreconstructable disease and MRSA in wounds, pain, severe protein calorie malnourishment. Given ongoing multiple comorbidities, patient remains at high risk for further complications, deterioration and decline. Code Status: No Code DNR Plan: PLAN: Legal decision maker:Patient is able to participate in medical decision making. In the event that she is incapacitated she has designated her daughter Sacha Dale as her healthcare surrogate and her other daughter Zo Plaza is her alternate healthcare surrogate Goals: Aggressive short on no code.Per Discussion with patient`s daughter , Zo-both daughters are agreeable to proceeding with amputation of right lower extremity. Hospice was introduced. It appears that at this time family is not ready for hospice. They would like patient to proceed with amputation and have her discharged home though patient`s daughter Zo who is patient`s primary caregiver seems to already have caregiver fatigue. CODE STATUS: No Code DNR/DNI SYMPTOMS: * Pain: Patient has severe PVD and chronic wounds to right foot and right hip- positive for MRSA. Vascular surgeon has recommended amputation. Wound care following. Patient currently his morphine sulfate 2 mg IV push every 4 hours prn and oxycodone/acetaminophen 5/325 every 4 hours prn for breakthrough pain. Pain appears to be adequately managed with current medication regimen. Continue to monitor for pain. * Decreased oral intake: Patient complains of nausea all the times, hence decreased oral intake. Patient gets Ensure with every meal. Encouraged patient to request anti-nausea medication prior to meals. Has a lunch tray in room untouched, patient states that she is not hungry. * Nausea: Patient complains of nausea all the times. Zofran available. Currently denying pain. Assess for nausea prior to meals. * Debility: Progressive. Patient has had multiple hospitalizations. She has severe PVD which led to left AKA in April 2018. Patient has been receiving physical therapy at home. Patient now his chronic wounds to right lower extremity, which vascular surgeon has recommended amputation. Patient appears debilitated, weak and has lost significant amount of weight and will most likely not participate effectively in physical therapy. Palliative care will continue to follow the patient during hospital course as condition evolves, to assist patient/decision-maker with understanding of their medical conditions, weighing benefits/burdens of treatment options, for clarification of goals of treatment. Additionally will assist with any symptoms of palliative concern Attestation Attestation: To help prompt me to consider important information that might be impacting today's encounter and assessment, information from prior notes written by myself or my colleagues may have been "brought forward" into today's note. My signature on this note, however, is an attestation that I personally performed the exam, history, and/or decision-making noted today, and, unless otherwise indicated, the interactions with patient, family, and staff as well as the review of records all occurred today. I also attest that the listed assessment and stated plan reflect my best clinical judgment today based on the combination of historical information, prior notes, and today's exam/ interactions. When time spent is documented, it refers only to time spent today by the signer, or if indicated, combined time spent today by collaborating physician/nurse practitioner.
--- NOTE | 2018-08-24 19:43 | P.PNID ---
Subjective Remarks: NM WBC scan negative, co severe rest pain in R foot no fever, persistent leukocytosis On O2 NC Pt is now consfused WBC up to 30 K and Antibiotics: vancomycin Allergies/Adverse Reactions: Allergies cephalexin Allergy (Severe, Verified 08/13/18 06:34) rash diatrizoate meglumine Allergy (Severe, Verified 08/13/18 06:34) rash fluconazole Allergy (Severe, Verified 08/13/18 06:34) rash gadobenic acid Allergy (Severe, Verified 08/13/18 06:34) rash gadodiamide Allergy (Severe, Verified 08/13/18 06:34) rash gadoteridol Allergy (Severe, Verified 08/13/18 06:34) rash iodixanol Allergy (Severe, Verified 08/13/18 06:34) rash iohexol Allergy (Severe, Verified 08/13/18 06:34) rash pravastatin Allergy (Severe, Verified 08/13/18 06:34) rash erythromycin base Adverse Reaction (Verified 08/13/18 06:34) Urinary Freq (Inc/Dec) Objective Vital Signs 08/23/18 20:00 08/24/18 00:00 08/24/18 00:28 Temperature 97.9 F 98.6 F Pulse Rate 95 H 100 H Respiratory Rate 16 14 Blood Pressure 133/67 104/54 L Pulse Oximetry 75 L 93 L 08/24/18 04:00 08/24/18 04:16 08/24/18 06:30 Temperature 99.1 F Pulse Rate 100 H 94 H Respiratory Rate 20 Blood Pressure 124/83 Pulse Oximetry 90 L 08/24/18 07:52 08/24/18 08:00 08/24/18 10:53 Temperature 97.8 F 97.7 F Pulse Rate 89 91 H Respiratory Rate 18 18 Blood Pressure 144/76 H 127/78 Pulse Oximetry 97 100 08/24/18 11:15 08/24/18 12:00 08/24/18 14:56 Temperature 98.5 F 98.5 F Pulse Rate 95 H 92 H Respiratory Rate 18 18 Blood Pressure 159/72 H 150/71 H Pulse Oximetry 98 99 100 08/24/18 15:52 08/24/18 16:00 Temperature 98.4 F Pulse Rate 88 Respiratory Rate 16 20 Blood Pressure 133/82 Pulse Oximetry 98 Intake & Output 0908/24/18 08/25/18 06:59 18:59 06:59 Intake Total 110 / 110 800 / 800 Balance 110 / 110 800 / 800 Weight 36 kg Intake: IV 50 / 50 Zosyn 3.375 GM Premix 50 ML @ 50 / 50 100 mls/hr IV.SIG Q6H [facility] Rx#: [id number] Oral 60 / 60 Intake (Blood Product) Amt 800 / 800 Rbc As-3 Leukoreduced Unit 400 / 400 [id number] Rbc As-3 Leukoreduced Unit 400 / 400 [id number] Other: Date of Last Bowel Movement 08/23/18 Lab - Hematology Results 08/24/18 04:45 WBC 30.8 H RBC 2.27 L Hgb 6.4 L* Hct 20.4 L* MCV 89.6 MCH 28.0 MCHC 31.3 L RDW 17.8 H Plt Count 363 MPV 6.8 L Prelim Diff (Auto) Slide review pending Neut % (Auto) 89.9 H Lymph % (Auto) 2.5 L [place] % (Auto) 7.2 Eos % (Auto) 0.1 Baso % (Auto) 0.3 Neut # (Auto) 27.7 H Lymph # (Auto) 0.8 L [place] # (Auto) 2.2 H Eos # (Auto) 0.0 Baso # (Auto) 0.1 WBC Differential . Diff Scan Auto diff confirmed Differential Comment . Platelet Estimate Normal Platelet Morphology Normal Ovalocytes 1+ H Acanthocytes (Spur) Occ H Keratocytes Occ H Lab - Chemistry Results 08/23/18 08/24/18 08/24/18 07:13 02:12 04:45 Sodium 143 Potassium 5.1 Chloride 113 H Carbon Dioxide 17.3 L Anion Gap 13 BUN 46 H 49 H Creatinine 2.33 H 2.51 H Estimated GFR 20 L 19 L Random Glucose 115 H Calcium 7.6 L B-Natriuretic Peptide 2924 H Imaging: ITS Impressions Hip CT 08/15/18 00:00 CONCLUSION: 1. Previous internal fixation. 2. No definite evidence for osteomyelitis. 3. Old fractures in the pelvis bilaterally. Femur MRI 08/21/18 07:00 CONCLUSION: 1. There is some thickening and induration of the subcutaneous soft tissues along the posterior aspect of the upper right thigh. 2. No definite loculated fluid collections are demonstrated to suggest a drainable abscess. Reynolds Line Insertion 08/23/18 00:00 CONCLUSION: 1. Uncomplicated Reynolds catheter placement as above. WBC Scan Nuclear Medicine 08/23/18 00:00 CONCLUSION: No focal area of abnormal activity is identified. Chest X-Ray 08/24/18 00:00 CONCLUSION: Worsening bibasilar consolidation and small left effusion. Physical Exam: GENERAL: NAD frail, cachectic elderly pt SKIN: Warm and dry. no rash HEAD: Atraumatic. Normocephalic. EYES: Pupils equal and round. No scleral icterus. No injection or drainage. ENT: No nasal bleeding or discharge. Mucous membranes pink and moist. NECK: Trachea midline. No JVD. CARDIOVASCULAR: Regular rate and rhythm. RESPIRATORY: No accessory muscle use. Clear to auscultation. Breath sounds decreassed bilaterally. Barrel chaped chest GASTROINTESTINAL: Abdomen soft, non-tender, distended. Hepatic and splenic margins not palpable. MUSCULOSKELETAL: Extremities without clubbing, cyanosis, or edema. well healed L AKA R thigh with minimal swelling , small opening is closed no more draining Prominent muscle bulk loss R foot is icy cold and cyanotic to touch NEUROLOGICAL: Awake and alert. Confused. Moves all estremeties PSYCHIATRIC: calm, Assessment and Plan - Plan UTI, grew MRSA PVD sp L AKA and with R heel chronic ulcer, critical ischemia and essentaill early dry gangreene of R foot vascular surgeon recommended R AKA, pt refused R hip drainage x 1 yr probably sinus tract and chronic osteo MRSA clx + - CT wo contrast confirmed intramedullary rina, no s/o osteo or sinus tract Abnormal CXR, can not excude PNA - no infiltrates, just effusions on the CXR CKD Hematuria Severe leukocytosis - probably from R foot I consider sepsis Pt has extremely poor prognosis. Palliative care follows Acute anemia - dropped 3 units, Hem + CHF r/o C.diff CT A/P CXR Zosyn
--- NOTE | 2018-08-24 20:53 | CT ---
EXAM DATE: 08/24/2018 8:35 PM EDT AGE/SEX: 73 years / Female INDICATIONS: Distention. CLINICAL DATA: This is the patient's initial encounter. Patient reports that signs and symptoms have been present for 1 day and indicates a pain score of 2/10. MEDICAL/SURGICAL HISTORY: Hypertension. Lupus. Anemia. Nephrolithiasis. IVC Filter placemen t. Vascular graft. RADIATION DOSE: 5.08 CTDI (mGy) [place] [facility] [place] 12/17/[place]. . TECHNIQUE: Multiple contiguous axial images were obtained through the abdomen. Images were obtained using multiple row detector helical technique. Using automated exposure control and adjustment of the mA and/or kV according to patient size, radiation dose was kept as low as reasonably achievable to o btain optimal diagnostic quality images. DICOM format image data is available electronically for rev iew and comparison. FINDINGS: Comparison is December 17. [id number] bilateral effusions, slightly larger on the left with ple ural calcifications similar to prior study. No acute findings in the liver and spleen. Atrophic kidneys with numerous vascular calcifications. In ferior vena cava filter present. Multiple calcified gallstones. Pancreatic calcifications characteristic of chronic pancreatitis. Severe anasarca. This ileus. Bladde r is distended. Numerous prior pelvic fractures with fixation proximal right femur and remote fixatio n left femur with hardware. Extensive atherosclerotic disease in the aorta without aneurysm CONCLUSION: 1. Severe anasarca. Small to moderate bilateral pleural effusions. Trace free fluid in the abdomen. 2. Diffuse mild ileus. 3. Atrophic kidneys with numerous vascular calcifications. Multiple gallstones. Inferior vena cava f ilter present. Trace pericardial fluid. Electronically signed by: Manjit Layton MD 08/24/2018 8:52 PM EDT
--- NOTE | 2018-08-24 20:57 | CT ---
EXAM DATE: 08/24/2018 8:35 PM EDT AGE/SEX: 73 years / Female INDICATIONS: Pleural effusion. CLINICAL DATA: This is the patient's initial encounter. Patient reports that signs and symptoms have been present for 1 day and indicates a pain score of 2/10. MEDICAL/SURGICAL HISTORY: Hypertension. Lupus. Nephrolithiasis. Acute kidney disease. IVC Filter placement. Vascular grafts. RADIATION DOSE: 5.08 CTDI (mGy) COMPARISON: [facility] [place] THORAX W/O CONTRAST, 07/12/2017. . TECHNIQUE: Multiple contiguous axial images were obtained through the chest without contrast. Image s were obtained in suspended respiration using multiple row detector helical technique. Using automa edvin exposure control and adjustment of the mA and/or kV according to patient size, radiation dose was kept as low as reasonably achievable to obtain optimal diagnostic quality images. DICOM format imag e data is available electronically for review and comparison. FINDINGS: Moderate left effusion and small right effusion with bilateral pleural calcifications. Moderate to severe coronary calcifications. Trace pericardial fluid. No adenopathy. Compressive atelectasis in the lungs posteriorly. No significant pulmonary edema identified. Dense at herosclerotic thoracic aorta without aneurysm. Subacute healing lower right anterior rib fractures. C ompression deformity upper thoracic spine similar to June 2017. CONCLUSION: 1. Moderate size left effusion and small right effusion with numerous calcified pleural plaques. Com pressive atelectasis in both lungs. No significant edema. 2. Moderate to severe anasarca. 3. Severe coronary artery calcifications. 4. Healing right lower anterior rib fractures. Stable compression deformity upper thoracic spine sin ce 2016. Mild kyphosis and scoliosis. Electronically signed by: Manjit Layton MD 08/24/2018 8:56 PM EDT
[2018-08-24] MEDS: Mirtazapine 15 MG Tablet PO SCH (21:19)
[2018-08-24] MEDS: Piperacil/Tazo 2.25 GM Premix 50 ML IV.SIG SCH (21:20)
[2018-08-25] MEDS: Metoprolol Tartrate 25 MG Tablet PO SCH ×3 (00:21→22:48)
[2018-08-25] MEDS: Sodium Bicarbonate 8.4% Inj 150 MEQ in Dextrose 5% in Water Inj 850 ML IV.CONT SCH ×4 (02:23→17:16)
[2018-08-25] MEDS: hydrALAZINE 10 MG Tablet PO SCH ×3 (04:28→18:20)
[2018-08-25] MEDS: Piperacil/Tazo 2.25 GM Premix 50 ML IV.SIG SCH ×4 (04:33→22:46)
[2018-08-25 06:47] LABS: Baso % (Auto) 0.1 % (0.0-2.0); Eos # (Auto) 0.2 th/mm3 (0.0-0.4); Eos % (Auto) 0.6 % (0.0-4.0); Hematocrit 33.6 % (35.0-46.0); Hemoglobin 11.3 gm/dL (11.6-15.3); Lymph # (Auto) 0.9 th/mm3 (1.0-4.8); Lymph % (Auto) 3.1 % (9.0-44.0); Mean Corpuscular HGB Conc 33.7 % (32.0-36.0); Mean Corpuscular Hemoglobin 29.1 pg (27.0-34.0); Mean Corpuscular Volume 86.6 fL (80.0-100.0); Mean Platelet Volume 6.7 fL (7.0-11.0); Mono # (Auto) 1.6 th/mm3 (0.0-0.9); Mono % (Auto) 5.3 % (0.0-8.0); Neut # (Auto) 26.5 th/mm3 (1.8-7.7); Neut % (Auto) 90.9 % (16.0-70.0); Platelet Count 332 th/mm3 (150-450); Red Blood Count 3.89 mil/mm3 (4.00-5.30); Red Cell Distribution Width 16.9 % (11.6-17.2); White Blood Count 29.2 th/mm3 (4.0-11.0)
[2018-08-25 06:55] LABS: Albumin 1.8 g/dL (3.4-5.0); Anion Gap 10 meq/L (5-15); Aspartate Aminotransferase 27 U/L (15-37); Calcium 7.4 mg/dL (8.5-10.1); Carbon Dioxide 26.8 meq/L (21.0-32.0); Chloride 106 meq/L (98-107); Glomerular Filtration Rate 20 mL/min (>89); Glucose,Random 118 mg/dL (74-106); Sodium 143 meq/L (136-145)
[2018-08-25 07:05] LABS: Alkaline Phosphatase 119 U/L (45-117); Blood Urea Nitrogen 53 mg/dL (7-18); Total Protein 6.1 g/dL (6.4-8.2); Vancomycin,Random 23.8 Comment
[2018-08-25 08:44] LABS: Acanthocytes Occ; Toxic Granulation 1+
[2018-08-25] MEDS: amLODIPine 10 MG Tablet PO SCH (09:00)
[2018-08-25] MEDS: Senna/Docusate Sodium 8.6/50 MG Tablet PO SCH (09:00)
[2018-08-25] MEDS: Multivitamin/Minerals Therapeutic Tablet PO SCH (09:00)
[2018-08-25] MEDS: Hydroxychloroquine 200 MG Tablet PO SCH (09:00)
[2018-08-25] MEDS: Sertraline 50 MG Tablet PO SCH (09:00)
--- NOTE | 2018-08-25 12:01 | P.PN ---
Subjective Interval history: Follow-up right foot gangrene August 23, 2018-patient seen and examined; complaint of left foot pain. Family by the bedside. Patient now wants foot amputation. Afebrile. Had Reynolds catheter placed this morning. August 24, 2018-patient seen and examined, currently on BiPAP which was ordered overnight. Patient is fidgety and agitated. Daughter by the bedside. August 25, 2018-patient seen and examined, alert however with some confusion. H&H improved after blood transfusion yesterday. Currently on nasal cannula. WBC trending down Physical Exam Vital signs: Vital Signs 08/24/18 12:00 08/24/18 14:56 08/24/18 15:52 Temperature 98.5 F 98.5 F Pulse Rate 95 H 92 H Respiratory Rate 18 18 16 Blood Pressure 159/72 H 150/71 H Pulse Oximetry 99 100 08/24/18 16:00 08/24/18 20:00 08/24/18 20:08 Temperature 98.4 F 97.9 F Pulse Rate 88 84 Respiratory Rate 20 18 Blood Pressure 133/82 160/78 H Pulse Oximetry 98 99 100 08/25/18 00:00 08/25/18 03:55 08/25/18 04:00 Temperature 98.3 F 99.4 F Pulse Rate 91 H 88 88 Respiratory Rate 20 20 Blood Pressure 174/79 H Pulse Oximetry 95 08/25/18 08:00 Temperature 98.5 F Pulse Rate 98 H Respiratory Rate 16 Blood Pressure 168/81 H Pulse Oximetry 98 Intake & Output 08/24/18 08/25/18 08/25/18 18:59 06:59 18:59 Intake Total 800 / 800 460 / 460 Output Total 600 / 600 Balance 800 / 800 -140 / -140 Weight 36 kg Intake: IV 100 / 100 Zosyn 2.25 GM Premix 50 ML @ 100 / 100 100 mls/hr IV.SIG Q6H [facility] Rx#: [id number] Oral 360 / 360 Intake (Blood Product) Amt 800 / 800 Rbc As-3 Leukoreduced Unit 400 / 400 [id number] Rbc As-3 Leukoreduced Unit 400 / 400 [id number] Output: Urine 600 / 600 Other: Date of Last Bowel Movement 08/23/18 08/24/18 Narrative: GENERAL: BIPAP on SKIN: Warm and dry. HEAD: Atraumatic. Normocephalic. EYES: Pupils equal and round. No scleral icterus. No injection or drainage. ENT: No nasal bleeding or discharge. Mucous membranes pink and moist. NECK: Trachea midline. No JVD. CARDIOVASCULAR: Regular rate and rhythm. S1-S2 no S3 or S4. RESPIRATORY: No accessory muscle use. Clear to auscultation. Breath sounds equal bilaterally. GASTROINTESTINAL: Abdomen soft, non-tender, nondistended. Hepatic and splenic margins not palpable. MUSCULOSKELETAL: Extremities without clubbing, cyanosis, or edema. No obvious deformities. Left [id number] amputation. Right foot bandaged. NEUROLOGICAL: Awake and alert. No obvious cranial nerve deficits. Motor grossly within normal limits. 4 out of 5 muscle strength in the arms and 4/5 in right leg. Not able to bear weight on the right lower extremity at all. Normal speech. Results - Labs CBC & Chem 7: 08/25/18 06:08 08/25/18 06:08 Laboratory Results - last 24 hr 08/24/18 08/24/18 08/25/18 06:30 21:23 06:08 WBC 29.2 H RBC 3.89 L Hgb 11.3 L D Hct 33.6 L MCV 86.6 MCH 29.1 MCHC 33.7 RDW 16.9 Plt Count 332 MPV 6.7 L Prelim Diff (Auto) Slide review pending Neut % (Auto) 90.9 H Lymph % (Auto) 3.1 L Ponce % (Auto) 5.3 Eos % (Auto) 0.6 Baso % (Auto) 0.1 Neut # (Auto) 26.5 H Lymph # (Auto) 0.9 L Ponce # (Auto) 1.6 H Eos # (Auto) 0.2 Baso # (Auto) 0.0 WBC Differential . Diff Scan Auto diff confirmed Differential Comment . Toxic Granulation 1+ H Acanthocytes (Spur) Occ H Sodium Potassium Chloride Carbon Dioxide Anion Gap BUN Creatinine Estimated GFR Random Glucose Lactic Acid 1.2 Calcium Prot Corrected Calcium Total Bilirubin AST ALT Alkaline Phosphatase Total Protein Albumin Random Vancomycin Blood Type AB Negative Antibody Screen Negative MTS Gel Crossmatch See Detail Bld Prod Order Comment 08/25/18 06:08 WBC RBC Hgb Hct MCV MCH MCHC RDW Plt Count MPV Prelim Diff (Auto) Neut % (Auto) Lymph % (Auto) Ponce % (Auto) Eos % (Auto) Baso % (Auto) Neut # (Auto) Lymph # (Auto) Ponce # (Auto) Eos # (Auto) Baso # (Auto) WBC Differential Diff Scan Differential Comment Toxic Granulation Acanthocytes (Spur) Sodium 143 Potassium 4.0 D Chloride 106 Carbon Dioxide 26.8 D Anion Gap 10 BUN 53 H Creatinine 2.33 H Estimated GFR 20 L Random Glucose 118 H Lactic Acid Calcium 7.4 L* Prot Corrected Calcium 7.9 L Total Bilirubin 0.3 AST 27 ALT Less than 6 L Alkaline Phosphatase 119 H Total Protein 6.1 L Albumin 1.8 L Random Vancomycin 23.8 Blood Type Antibody Screen MTS Gel Crossmatch Bld Prod Order Comment - Imaging Impressions Abdomen/Pelvis CT 08/24/18 00:00 CONCLUSION: 1. Severe anasarca. Small to moderate bilateral pleural effusions. Trace free fluid in the abdomen. 2. Diffuse mild ileus. 3. Atrophic kidneys with numerous vascular calcifications. Multiple gallstones. Inferior vena cava filter present. Trace pericardial fluid. Chest CT 08/24/18 19:44 CONCLUSION: 1. Moderate size left effusion and small right effusion with numerous calcified pleural plaques. Compressive atelectasis in both lungs. No significant edema. 2. Moderate to severe anasarca. 3. Severe coronary artery calcifications. 4. Healing right lower anterior rib fractures. Stable compression deformity upper thoracic spine since 2017. Mild kyphosis and scoliosis. Assessment and Plan - Assessment (1) RADHA (acute kidney injury) Code(s): N17.9 - Acute kidney failure, unspecified Status: Acute (2) Acute UTI Code(s): N39.0 - Urinary tract infection, site not specified Status: Acute (3) Dehydration Code(s): E86.0 - Dehydration Status: Acute (4) Pressure ulcer, hip Code(s): L89.209 - Pressure ulcer of unspecified hip, unspecified stage Status : Acute (5) Severe peripheral arterial disease Code(s): I73.9 - Peripheral vascular disease, unspecified Status: Acute (6) Ulcer of heel Code(s): L97.409 - Non-pressure chronic ulcer of unspecified heel and midfoot with unspecified severity Status: Acute - Plan 73-year-old female with Urinary tract infection MRSA growing in urine. ID is following. Acute respiratory failure-improved -BiPAP PRN -Continue with DuoNeb as needed, Peripheral vascular disease MRSA wound infection Patient has a history of left AKA. Vascular surgery is currently following the patient. Wound care physician has also been consulted. Wound culture growing MRSA. MRI of right hip without obvious infection. -Follow up with vascular surgery, patient is now willing for right foot amputation -palliative care ff -Appreciate input from ID and continue vancomycin IV -NM WBC scan negative Renal insufficiency/stage III chronic kidney disease/dehydration -follow BMP as needed and avoid nephrotoxins. Hypocalcemia/Hypomagnesemia/Hypokalemia/Hyponatremia -Improved. Failure to thrive/protein calorie malnourishment severe S/t gastroparesis. -continue on mirtazapine Coronary artery disease -continue on Plavix and apixaban. Tobacco abuse -recommend smoking cessation. Anemia s/p 2 unit blood transfusion August 24, 2018 Chronic. On apixaban. Hemoccult positive. -consider GI work-up as outpt as hemoglobin is stable. Hypoglycemia -encourage nutrition. -D5NS. PPx: Apixaban
[2018-08-25] MEDS: Acetaminophen/Codeine 300/30 MG Tablet PO PRN ×2 (13:46→22:48)
--- NOTE | 2018-08-25 16:12 | P.PNID ---
Subjective Remarks: better today with fluids and blood transfusion WBC @ 29 K Mental status definetely improved c/o diarrhea, dark, almost black denies abd pain no fever Antibiotics: zosyn vancomycin Allergies/Adverse Reactions: Allergies cephalexin Allergy (Severe, Verified 08/13/18 06:34) rash diatrizoate meglumine Allergy (Severe, Verified 08/13/18 06:34) rash fluconazole Allergy (Severe, Verified 08/13/18 06:34) rash gadobenic acid Allergy (Severe, Verified 08/13/18 06:34) rash gadodiamide Allergy (Severe, Verified 08/13/18 06:34) rash gadoteridol Allergy (Severe, Verified 08/13/18 06:34) rash iodixanol Allergy (Severe, Verified 08/13/18 06:34) rash iohexol Allergy (Severe, Verified 08/13/18 06:34) rash pravastatin Allergy (Severe, Verified 08/13/18 06:34) rash erythromycin base Adverse Reaction (Verified 08/13/18 06:34) Urinary Freq (Inc/Dec) Objective Vital Signs 08/24/18 20:00 08/24/18 20:08 08/25/18 00:00 Temperature 97.9 F 98.3 F Pulse Rate 84 91 H Respiratory Rate 18 20 Blood Pressure 160/78 H Pulse Oximetry 99 100 95 08/25/18 03:55 08/25/18 04:00 08/25/18 08:00 Temperature 99.4 F 98.5 F Pulse Rate 88 88 98 H Respiratory Rate 20 16 Blood Pressure 174/79 H 168/81 H Pulse Oximetry 98 08/25/18 12:00 Temperature 98.4 F Pulse Rate 63 Respiratory Rate 16 Blood Pressure 144/81 H Pulse Oximetry 93 L Intake & Output 08/24/18 08/25/18 08/25/18 18:59 06:59 18:59 Intake Total 800 / 800 460 / 460 1050 / 1050 Output Total 600 / 600 Balance 800 / 800 -140 / -140 1050 / 1050 Weight 36 kg Intake: IV 100 / 100 1050 / 1050 Sodium Bicarbonate 8.4% Inj 150 1000 / 1000 MEQ In D5W Inj 850 ML @ 84 mls /hr IV.CONT .[id number] [facility] Rx#: [id number] Zosyn 2.25 GM Premix 50 ML @ 100 / 100 50 / 50 100 mls/hr IV.SIG Q6H [facility] Rx#: [id number] Oral 360 / 360 Intake (Blood Product) Amt 800 / 800 Rbc As-3 Leukoreduced Unit 400 / 400 [id number] Rbc As-3 Leukoreduced Unit 400 / 400 [id number] Output: Urine 600 / 600 Other: Date of Last Bowel Movement 08/23/18 08/24/18 # Incontinent Bowel Movements 1 Lab - Hematology Results 08/24/18 08/25/18 04:45 06:08 WBC 30.8 H 29.2 H RBC 2.27 L 3.89 L Hgb 6.4 L* 11.3 L D Hct 20.4 L* 33.6 L MCV 89.6 86.6 MCH 28.0 29.1 MCHC 31.3 L 33.7 RDW 17.8 H 16.9 Plt Count 363 332 MPV 6.8 L 6.7 L Prelim Diff (Auto) Slide review pending Slide review pending Neut % (Auto) 89.9 H 90.9 H Lymph % (Auto) 2.5 L 3.1 L Villalba % (Auto) 7.2 5.3 Eos % (Auto) 0.1 0.6 Baso % (Auto) 0.3 0.1 Neut # (Auto) 27.7 H 26.5 H Lymph # (Auto) 0.8 L 0.9 L Villalba # (Auto) 2.2 H 1.6 H Eos # (Auto) 0.0 0.2 Baso # (Auto) 0.1 0.0 WBC Differential . . Diff Scan Auto diff confirmed Auto diff confirmed Differential Comment . . Toxic Granulation 1+ H Platelet Estimate Normal Platelet Morphology Normal Ovalocytes 1+ H Acanthocytes (Spur) Occ H Occ H Keratocytes Occ H Lab - Chemistry Results 08/24/18 08/24/18 08/24/18 02:12 04:45 21:23 Sodium 143 Potassium 5.1 Chloride 113 H Carbon Dioxide 17.3 L Anion Gap 13 BUN 49 H Creatinine 2.51 H Estimated GFR 19 L Random Glucose 115 H Lactic Acid 1.2 Calcium 7.6 L Prot Corrected Calcium Total Bilirubin AST ALT Alkaline Phosphatase B-Natriuretic Peptide 2924 H Total Protein Albumin 08/25/18 06:08 Sodium 143 Potassium 4.0 D Chloride 106 Carbon Dioxide 26.8 D Anion Gap 10 BUN 53 H Creatinine 2.33 H Estimated GFR 20 L Random Glucose 118 H Lactic Acid Calcium 7.4 L* Prot Corrected Calcium 7.9 L Total Bilirubin 0.3 AST 27 ALT Less than 6 L Alkaline Phosphatase 119 H B-Natriuretic Peptide Total Protein 6.1 L Albumin 1.8 L Imaging: ITS Impressions Hip CT 08/15/18 00:00 CONCLUSION: 1. Previous internal fixation. 2. No definite evidence for osteomyelitis. 3. Old fractures in the pelvis bilaterally. Femur MRI 08/21/18 07:00 CONCLUSION: 1. There is some thickening and induration of the subcutaneous soft tissues along the posterior aspect of the upper right thigh. 2. No definite loculated fluid collections are demonstrated to suggest a drainable abscess. Reynolds Line Insertion 08/23/18 00:00 CONCLUSION: 1. Uncomplicated Reynolds catheter placement as above. WBC Scan Nuclear Medicine 08/23/18 00:00 CONCLUSION: No focal area of abnormal activity is identified. Abdomen/Pelvis CT 08/24/18 00:00 CONCLUSION: 1. Severe anasarca. Small to moderate bilateral pleural effusions. Trace free fluid in the abdomen. 2. Diffuse mild ileus. 3. Atrophic kidneys with numerous vascular calcifications. Multiple gallstones. Inferior vena cava filter present. Trace pericardial fluid. Chest X-Ray 08/24/18 00:00 CONCLUSION: Worsening bibasilar consolidation and small left effusion. Chest CT 08/24/18 19:44 CONCLUSION: 1. Moderate size left effusion and small right effusion with numerous calcified pleural plaques. Compressive atelectasis in both lungs. No significant edema. 2. Moderate to severe anasarca. 3. Severe coronary artery calcifications. 4. Healing right lower anterior rib fractures. Stable compression deformity upper thoracic spine since 2017. Mild kyphosis and scoliosis. Physical Exam: GENERAL: NAD frail, cachectic elderly pt SKIN: Warm and dry. no rash HEAD: Atraumatic. Normocephalic. EYES: Pupils equal and round. No scleral icterus. No injection or drainage. ENT: No nasal bleeding or discharge. Mucous membranes pink and moist. NECK: Trachea midline. No JVD. CARDIOVASCULAR: Regular rate and rhythm. RESPIRATORY: No accessory muscle use. Clear to auscultation. Breath sounds decreassed bilaterally. Barrel chaped chest GASTROINTESTINAL: Abdomen soft, non-tender, not distended. Hepatic and splenic margins not palpable. MUSCULOSKELETAL: Extremities without clubbing, cyanosis, or edema. well healed L AKA R thigh with minimal swelling , small opening is closed no more draining Prominent muscle bulk loss R foot is icy cold to touch and purple . No refill R groin with multiple lymph nodules and tender area @ her previous graft NEUROLOGICAL: Awake and alert. Lucid. Speech coherent. Moves all estremeties PSYCHIATRIC: calm, cooperative Assessment and Plan - Plan UTI, grew MRSA PVD sp L AKA and with R heel chronic ulcer, critical ischemia and essentaill early dry gangreene of R foot vascular surgeon recommended R AKA, pt refused R hip drainage x 1 yr probably sinus tract and chronic osteo MRSA clx + - CT wo contrast confirmed intramedullary rina, no s/o osteo or sinus tract Abnormal CXR, can not excude PNA - no infiltrates, just effusions on the CXR CKD Hematuria Severe leukocytosis - probably from R foot I consider sepsis Diarrhea, ileus hem + stool - ? ischemia? C.diff Pt has extremely poor prognosis. Palliative care follows Acute anemia - dropped 3 units, Hem + CHF Poor perfusion status R groin US chk stool for C.diff cont Zosyn cont vancomycin
--- NOTE | 2018-08-25 17:11 | US ---
EXAM DATE: 08/25/2018 12:00 AM EDT AGE/SEX: 73 years / Female INDICATIONS: Right groin pain. CLINICAL DATA: This is the patient's initial encounter. Patient reports that signs and symptoms have been present for 4 - 6 days and indicates a pain score of 2/10. MEDICAL/SURGICAL HISTORY: . Anemia. Anxiety. Chronic kidney disease. Depression. Dementia. Dysp hagia. Hyperlipidemia. Lupus. Nephrolithiasis. Osteoporosis. peripheral vascular disease. . Cardiac catheterization. Para thyroidectomy. Amputation. Colonoscopy. Hip surgery. Cardiac stent. Fem-pop byp ass. COMPARISON: [facility] [place] LEG BILATERAL VENOUS DOPPLER, 09/06/2017. . FINDINGS: Real-time ultrasound examination of the groin was performed. No fluid collections or evidence of pseu doaneurysm. CONCLUSION: 1. Negative exam. Electronically signed by: Angelito Rossi MD 08/25/2018 5:10 PM EDT
[2018-08-25] MEDS: Mirtazapine 15 MG Tablet PO SCH (22:47)
[2018-08-25] MEDS: Morphine Inj 4 MG/ML Vial IV.PUSH PRN (23:41)
[2018-08-26] MEDS: Senna/Docusate Sodium 8.6/50 MG Tablet PO SCH ×3 (01:56→21:10)
[2018-08-26] MEDS: Sodium Bicarbonate 8.4% Inj 150 MEQ in Dextrose 5% in Water Inj 850 ML IV.CONT SCH ×2 (02:38)
[2018-08-26] MEDS: hydrALAZINE 10 MG Tablet PO SCH ×3 (03:42→21:11)
[2018-08-26] MEDS: Piperacil/Tazo 2.25 GM Premix 50 ML IV.SIG SCH ×4 (03:42→21:11)
[2018-08-26] MEDS: Acetaminophen/Codeine 300/30 MG Tablet PO PRN ×2 (04:07→21:33)
[2018-08-26] MEDS: Hydroxychloroquine 200 MG Tablet PO SCH (09:32)
[2018-08-26] MEDS: Sertraline 50 MG Tablet PO SCH (09:32)
[2018-08-26] MEDS: Multivitamin/Minerals Therapeutic Tablet PO SCH (09:32)
[2018-08-26] MEDS: amLODIPine 10 MG Tablet PO SCH (09:32)
--- NOTE | 2018-08-26 09:36 | P.PN ---
Subjective Interval history: Follow-up right foot gangrene August 23, 2018-patient seen and examined; complaint of left foot pain. Family by the bedside. Patient now wants foot amputation. Afebrile. Had Reynolds catheter placed this morning. August 24, 2018-patient seen and examined, currently on BiPAP which was ordered overnight. Patient is fidgety and agitated. Daughter by the bedside. August 25, 2018-patient seen and examined, alert however with some confusion. H&H improved after blood transfusion yesterday. Currently on nasal cannula. WBC trending down August 26, 2018-patient seen and examined, no acute event overnight stable .less confused. Physical Exam Vital signs: Vital Signs 08/25/18 12:00 08/25/18 16:00 08/25/18 17:52 Temperature 98.4 F 98.4 F Pulse Rate 63 63 Respiratory Rate 16 16 Blood Pressure 144/81 H 158/72 H Pulse Oximetry 93 L 93 L 94 L 08/25/18 20:00 08/25/18 23:07 08/26/18 00:00 Temperature 98.0 F 98.1 F 98.0 F Pulse Rate 88 95 H 87 Respiratory Rate 18 18 18 Blood Pressure 143/60 H 164/79 H 152/63 H Pulse Oximetry 95 95 95 08/26/18 00:05 08/26/18 03:40 08/26/18 04:00 Temperature 98.2 F Pulse Rate 89 87 Respiratory Rate 18 Blood Pressure 172/82 H 170/81 H Pulse Oximetry 96 08/26/18 05:47 08/26/18 06:03 08/26/18 08:00 Temperature 97.8 F Pulse Rate 90 87 93 H Respiratory Rate 20 Blood Pressure 135/66 117/66 Pulse Oximetry 93 L Intake & Output 08/25/18 08/26/18 08/26/18 18:59 06:59 18:59 Intake Total 1100 / 1100 100 / 100 Balance 1100 / 1100 100 / 100 Weight 35.5 kg Intake: IV 1100 / 1100 100 / 100 Sodium Bicarbonate 8.4% Inj 150 1000 / 1000 MEQ In D5W Inj 850 ML @ 84 mls /hr IV.CONT .[id number] [facility] Rx#: [id number] Zosyn 2.25 GM Premix 50 ML @ 100 / 100 100 / 100 100 mls/hr IV.SIG Q6H [facility] Rx#: [id number] Other: # Voids 4 Date of Last Bowel Movement 08/24/18 # Incontinent Bowel Movements 1 Narrative: GENERAL: NAD SKIN: Warm and dry. HEAD: Atraumatic. Normocephalic. EYES: Pupils equal and round. No scleral icterus. No injection or drainage. ENT: No nasal bleeding or discharge. Mucous membranes pink and moist. NECK: Trachea midline. No JVD. CARDIOVASCULAR: Regular rate and rhythm. S1-S2 no S3 or S4. RESPIRATORY: No accessory muscle use. Clear to auscultation. Breath sounds equal bilaterally. GASTROINTESTINAL: Abdomen soft, non-tender, nondistended. Hepatic and splenic margins not palpable. MUSCULOSKELETAL: Extremities without clubbing, cyanosis, or edema. No obvious deformities. Left [id number]-[id number] amputation. Right foot bandaged. NEUROLOGICAL: Awake and alert. No obvious cranial nerve deficits. Motor grossly within normal limits. 4 out of 5 muscle strength in the arms and 4/5 in right leg. Not able to bear weight on the right lower extremity at all. Normal speech. Results - Labs CBC & Chem 7: 08/25/18 06:08 08/26/18 04:53 Laboratory Results - last 24 hr 08/26/18 04:53 BUN 50 H Creatinine 2.10 H Estimated GFR 23 L - Imaging Impressions Lower Extremity Ultrasound 08/25/18 00:00 CONCLUSION: 1. Negative exam. Assessment and Plan - Assessment (1) RADHA (acute kidney injury) Code(s): N17.9 - Acute kidney failure, unspecified Status: Acute (2) Acute UTI Code(s): N39.0 - Urinary tract infection, site not specified Status: Acute (3) Dehydration Code(s): E86.0 - Dehydration Status: Acute (4) Pressure ulcer, hip Code(s): L89.209 - Pressure ulcer of unspecified hip, unspecified stage Status : Acute (5) Severe peripheral arterial disease Code(s): I73.9 - Peripheral vascular disease, unspecified Status: Acute (6) Ulcer of heel Code(s): L97.409 - Non-pressure chronic ulcer of unspecified heel and midfoot with unspecified severity Status: Acute - Plan 73-year-old female with Urinary tract infection MRSA growing in urine. ID is following. Acute respiratory failure-improved -BiPAP PRN -Continue with DuoNeb as needed, Peripheral vascular disease MRSA wound infection Patient has a history of left AKA. Vascular surgery is currently following the patient. Wound care physician has also been consulted. Wound culture growing MRSA. MRI of right hip without obvious infection. -Follow up with vascular surgery, patient is now willing for right foot amputation, however she does not appear to be a surgical candidate at this time -palliative care ff -Appreciate input from ID and continue vancomycin IV -NM WBC scan negative Renal insufficiency/stage III chronic kidney disease/dehydration -follow BMP as needed and avoid nephrotoxins. Hypocalcemia/Hypomagnesemia/Hypokalemia/Hyponatremia -Improved. Failure to thrive/protein calorie malnourishment severe S/t gastroparesis. -continue on mirtazapine Coronary artery disease -continue on Plavix and apixaban. Tobacco abuse -recommend smoking cessation. Anemia s/p 2 unit blood transfusion August 24, 2018 Chronic. On apixaban. Hemoccult positive. -consider GI work-up as outpt as hemoglobin is stable. Hypoglycemia -encourage nutrition. -D5NS. PPx: Apixaban Poor and guarded prognostic
[2018-08-26] MEDS: Metoprolol Tartrate 25 MG Tablet PO SCH (13:09)
[2018-08-26] MEDS: Mirtazapine 15 MG Tablet PO SCH (21:10)
[2018-08-27] MEDS: Metoprolol Tartrate 25 MG Tablet PO SCH ×3 (00:03→23:22)
[2018-08-27] MEDS: Piperacil/Tazo 2.25 GM Premix 50 ML IV.SIG SCH ×4 (03:33→23:31)
[2018-08-27] MEDS: Acetaminophen/Codeine 300/30 MG Tablet PO PRN ×4 (03:34→23:23)
[2018-08-27] MEDS: hydrALAZINE 10 MG Tablet PO SCH ×3 (03:34→18:16)
[2018-08-27 07:27] LABS: Vancomycin,Random 16.6 Comment
--- NOTE | 2018-08-27 09:18 | P.PN ---
Subjective Interval history: Follow-up right foot gangrene August 23, 2018-patient seen and examined; complaint of left foot pain. Family by the bedside. Patient now wants foot amputation. Afebrile. Had Reynolds catheter placed this morning. August 24, 2018-patient seen and examined, currently on BiPAP which was ordered overnight. Patient is fidgety and agitated. Daughter by the bedside. August 25, 2018-patient seen and examined, alert however with some confusion. H&H improved after blood transfusion yesterday. Currently on nasal cannula. WBC trending down August 26, 2018-patient seen and examined, no acute event overnight stable .less confused. August 27, 2018-, patient seen and examined, much more alert and oriented x2. Wanting to know exactly her care plan. BP labile. Afebrile. Physical Exam Vital signs: Vital Signs 08/26/18 12:00 08/26/18 13:09 08/26/18 16:00 Temperature 97.1 F L 98 F Pulse Rate 57 L 84 93 H Respiratory Rate 20 20 Blood Pressure 154/74 H 142/69 H Pulse Oximetry 96 95 08/26/18 20:00 08/26/18 20:44 08/27/18 00:00 Temperature 98.0 F 98 F Pulse Rate 102 H 104 H Respiratory Rate 18 20 Blood Pressure 149/80 H 165/109 H Pulse Oximetry 95 95 97 08/27/18 04:00 08/27/18 04:21 08/27/18 08:00 Temperature 97.8 F 97.3 F L Pulse Rate 80 82 93 H Respiratory Rate 20 14 Blood Pressure 161/78 H 178/90 H Pulse Oximetry 99 93 L Intake & Output 08/26/18 08/27/18 08/27/18 18:59 06:59 18:59 Intake Total 50 / 50 100 / 100 Output Total 4 / 4 Balance 46 / 46 100 / 100 Weight 35.4 kg Intake: IV 50 / 50 100 / 100 Zosyn 2.25 GM Premix 50 ML @ 50 / 50 100 / 100 100 mls/hr IV.SIG Q6H [facility] Rx#: [id number] Output: Urine 3 / 3 Stool 1 / 1 Other: # Voids 1 Date of Last Bowel Movement 08/26/18 09/25/18 # Incontinent Bowel Movements 1 Narrative: GENERAL: NAD SKIN: Warm and dry. HEAD: Atraumatic. Normocephalic. EYES: Pupils equal and round. No scleral icterus. No injection or drainage. ENT: No nasal bleeding or discharge. Mucous membranes pink and moist. NECK: Trachea midline. No JVD. CARDIOVASCULAR: Regular rate and rhythm. S1-S2 no S3 or S4. RESPIRATORY: No accessory muscle use. Clear to auscultation. Breath sounds equal bilaterally. GASTROINTESTINAL: Abdomen soft, non-tender, nondistended. Hepatic and splenic margins not palpable. MUSCULOSKELETAL: Extremities without clubbing, cyanosis, or edema. No obvious deformities. Left [id number] amputation. Right foot bandaged. NEUROLOGICAL: Awake and alert. No obvious cranial nerve deficits. Motor grossly within normal limits. 4 out of 5 muscle strength in the arms and 4/5 in right leg. Not able to bear weight on the right lower extremity at all. Normal speech. Results - Labs CBC & Chem 7: 08/25/18 06:08 08/27/18 04:45 Laboratory Results - last 24 hr 08/27/18 08/27/18 01:07 04:45 BUN 46 H Creatinine 2.05 H Estimated GFR 24 L Stl C.difficile Tox PCR Negative St C. diff Tox Epid 027 Negative Random Vancomycin 16.6 Microbiology 08/27/18 01:07 Stool Stool Occult Blood (DAJA) - Final Hemoccult negative Assessment and Plan - Assessment (1) RADHA (acute kidney injury) Code(s): N17.9 - Status: Acute (2) Acute UTI Code(s): N39.0 - Status: Acute (3) Dehydration Code(s): E86.0 - Status: Acute (4) Pressure ulcer, hip Code(s): L89.209 - Status: Acute (5) Severe peripheral arterial disease Code(s): I73.9 - Status: Acute (6) Ulcer of heel Code(s): L97.409 - Status: Acute - Plan 73-year-old female with Urinary tract infection MRSA growing in urine. ID is following. Acute respiratory failure-improved -BiPAP PRN -Continue with DuoNeb as needed, Peripheral vascular disease MRSA wound infection Patient has a history of left AKA. Vascular surgery is currently following the patient. Wound care physician has also been consulted. Wound culture growing MRSA. MRI of right hip without obvious infection. -Follow up with vascular surgery, patient is now willing for right foot amputation, however she does not appear to be a surgical candidate at this time -palliative care ff -Appreciate input from ID and continue vancomycin IV -NM WBC scan negative Renal insufficiency/stage III chronic kidney disease/dehydration -follow BMP as needed and avoid nephrotoxins. Hypocalcemia/Hypomagnesemia/Hypokalemia/Hyponatremia -Improved. Failure to thrive/protein calorie malnourishment severe S/t gastroparesis. -continue on mirtazapine Coronary artery disease -continue on Plavix and apixaban. Tobacco abuse -recommend smoking cessation. Anemia s/p 2 unit blood transfusion August 24, 2018 On apixaban. Hemoccult positive. -consider GI work-up as outpt as hemoglobin is stable. Hypoglycemia -encourage nutrition. Benign labile hypertension -Will Lopressor to 50 mg p.o. twice daily . Will give extra 25 mg today PPx: Apixaban Poor and guarded prognostic
--- NOTE | 2018-08-27 09:20 | P.PNVS ---
Subjective Subjective/Hospital Course: 73/F alert sitting in bed this am Speech clear Discussed amputation process with pt Pt not ready at this time, requesting to go home to prepare R foot w/ worsening tissue loss and discoloration Objective Vital Signs / I&O: Vital Signs 08/26/18 12:00 08/26/18 13:09 08/26/18 16:00 Temperature 97.1 F L 98 F Pulse Rate 57 L 84 93 H Respiratory Rate 20 20 Blood Pressure 154/74 H 142/69 H Pulse Oximetry 96 95 08/26/18 20:00 08/26/18 20:44 08/27/18 00:00 Temperature 98.0 F 98 F Pulse Rate 102 H 104 H Respiratory Rate 18 20 Blood Pressure 149/80 H 165/109 H Pulse Oximetry 95 95 97 08/27/18 04:00 08/27/18 04:21 08/27/18 08:00 Temperature 97.8 F 97.3 F L Pulse Rate 80 82 93 H Respiratory Rate 20 14 Blood Pressure 161/78 H 178/90 H Pulse Oximetry 99 93 L Intake & Output 08/26/18 08/27/18 08/27/18 18:59 06:59 18:59 Intake Total 50 / 50 100 / 100 Output Total 4 / 4 Balance 46 / 46 100 / 100 Weight 35.4 kg Intake: IV 50 / 50 100 / 100 Zosyn 2.25 GM Premix 50 ML @ 50 / 50 100 / 100 100 mls/hr IV.SIG Q6H [facility] Rx#: [id number] Output: Urine 3 / 3 Stool 1 / 1 Other: # Voids 1 Date of Last Bowel Movement 08/26/18 09/25/18 # Incontinent Bowel Movements 1 Physical Exam: 73/F A&OX3, GCS 15 Speech Clear Resp even +S1,S2 Dressing to R foot I/C/D Non palpable R DP/PT R heel/toes necrotic with dusky discoloration from ankle to foot region Laboratory Results - last 24 hr 08/27/18 08/27/18 01:07 04:45 BUN 46 H Creatinine 2.05 H Estimated GFR 24 L Stl C.difficile Tox PCR Negative St C. diff Tox Epid 027 Negative Random Vancomycin 16.6 Microbiology 08/27/18 01:07 Stool Occult Blood (DAJA) - Final Stool Hemoccult negative Impressions Lower Extremity Ultrasound 08/25/18 00:00 CONCLUSION: 1. Negative exam. Assessment and Plan - Plan 73/F with a PMH of severe PAD Pt underwent a L AKA on 05/22/18 Pt w/ Severe R LE arterial occlusive disease with worsening tissue loss Unfortunately R LE is not limb salvageable Plan Recommend continued medical management (anticoagulation/Statin therapy) Continue pain control Continue wound care per the wound care team Recommend R AKA when pt is ready Arranged out pt f/u in 1W Ceci Baptiste NP [facility] [phone] Discharge Planning: Pt clear for D/C from a vascular standpoint Arranged out pt F/U
[2018-08-27] MEDS ORDERED: Metoprolol Tartrate 25 MG Tablet PO ONE (10:00)
[2018-08-27] MEDS: Sertraline 50 MG Tablet PO SCH (10:01)
[2018-08-27] MEDS: Multivitamin/Minerals Therapeutic Tablet PO SCH (10:01)
[2018-08-27] MEDS: amLODIPine 10 MG Tablet PO SCH (10:02)
[2018-08-27] MEDS: Senna/Docusate Sodium 8.6/50 MG Tablet PO SCH ×2 (10:03→23:36)
[2018-08-27] MEDS: Hydroxychloroquine 200 MG Tablet PO SCH (10:03)
--- NOTE | 2018-08-27 14:19 | P.PNVS ---
- Pre-operative Note Planned Procedure: R AKA Interval History: 73/F with a PMH of severe PAD Pt w/ Severe R LE arterial occlusive disease with worsening tissue loss Labs: WBC 29.2 th/mm3 (4.0-11.0) H 08/25/18 06:08 RBC 3.89 mil/mm3 (4.00-5.30) L 08/25/18 06:08 Hgb 11.3 gm/dL (11.6-15.3) L D 08/25/18 06:08 Hct 33.6 % (35.0-46.0) L 08/25/18 06:08 MCV 86.6 fL (80.0-100.0) 08/25/18 06:08 MCH 29.1 pg (27.0-34.0) 08/25/18 06:08 MCHC 33.7 % (32.0-36.0) 08/25/18 06:08 RDW 16.9 % (11.6-17.2) 08/25/18 06:08 Plt Count 332 th/mm3 (150-450) 08/25/18 06:08 MPV 6.7 fL (7.0-11.0) L 08/25/18 06:08 INR 1.3 Ratio 08/14/18 07:34 Sodium 143 meq/L (136-145) 08/25/18 06:08 Potassium 4.0 meq/L (3.5-5.1) D 08/25/18 06:08 Chloride 106 meq/L (98-107) 08/25/18 06:08 Carbon Dioxide 26.8 meq/L (21.0-32.0) D 08/25/18 06:08 Anion Gap 10 meq/L (5-15) 08/25/18 06:08 BUN 46 mg/dL (7-18) H 08/27/18 04:45 Random Glucose 118 mg/dL (74-106) H 08/25/18 06:08 Calcium 7.4 mg/dL (8.5-10.1) L* 08/25/18 06:08 Imaging: ITS Impressions Hip CT 08/15/18 00:00 CONCLUSION: 1. Previous internal fixation. 2. No definite evidence for osteomyelitis. 3. Old fractures in the pelvis bilaterally. Femur MRI 08/21/18 07:00 CONCLUSION: 1. There is some thickening and induration of the subcutaneous soft tissues along the posterior aspect of the upper right thigh. 2. No definite loculated fluid collections are demonstrated to suggest a drainable abscess. Reynolds Line Insertion 08/23/18 00:00 CONCLUSION: 1. Uncomplicated Reynolds catheter placement as above. WBC Scan Nuclear Medicine 08/23/18 00:00 CONCLUSION: No focal area of abnormal activity is identified. Abdomen/Pelvis CT 08/24/18 00:00 CONCLUSION: 1. Severe anasarca. Small to moderate bilateral pleural effusions. Trace free fluid in the abdomen. 2. Diffuse mild ileus. 3. Atrophic kidneys with numerous vascular calcifications. Multiple gallstones. Inferior vena cava filter present. Trace pericardial fluid. Chest X-Ray 08/24/18 00:00 CONCLUSION: Worsening bibasilar consolidation and small left effusion. Chest CT 08/24/18 19:44 CONCLUSION: 1. Moderate size left effusion and small right effusion with numerous calcified pleural plaques. Compressive atelectasis in both lungs. No significant edema. 2. Moderate to severe anasarca. 3. Severe coronary artery calcifications. 4. Healing right lower anterior rib fractures. Stable compression deformity upper thoracic spine since 2017. Mild kyphosis and scoliosis. Lower Extremity Ultrasound 08/25/18 00:00 CONCLUSION: 1. Negative exam. Operative site marked: Yes Consent: Informed consent has been obtained from Precious Plaza. I have explained the procedure in detail and discussed the risks, benefits, and potential complications. All questions have been answered.
--- NOTE | 2018-08-27 15:02 | P.PNPAL ---
Reason for Visit Reason for visit: a. To assist with evaluation and management of symptoms including: Pain, decreased oral intake, debility b. To assist medical decision maker(s) with: better understanding of current medical conditions; weighing benefits/burdens of medical treatment options; making medical treatment decisions. Subjective Subjective/Interval History: Follow-up medically necessary for symptom management. Patient seen and examined in her room in the presence of her grandson. Patient endorsing pain to right leg- rating pain as 7/10. Pain is managed with Morphine Sulfate q 4 hrs prn for dressing changes and Percocet 5mg q 4 hrs prn. Patient has used Percocet x2 doses in the past 24hrs. Patient is alert, oriented to self, place and situation. Appears calm today. Vital signs stable and patient is afebrile. Patient is on O2 4L NC with O2 saturation in the low 90s. Chest CT on 08/24/18 revealed moderate size left effusion and small right effusion with numerous calcified pleural plaques, compressive atelectasis bilaterally. Moderate to severe anasarca.Severe coronary artery calcifications. Healing right lower anterior rib fractures and mild kyphosis and scoliosis. Ultrasound to Right lower extremity on 08/25/18 to evaluate pain to right groin negative for any fluid collection or evidence of pseudoaneurysm. BUN/Creat on =46/2.05. Patient has been having diarrhea and Cdiff on 08/27/18 was negative. Hospital course continues to be complicated with persistent leucocytosis, pain and necrosis with worsening tissue loss to right lower extremity. Patient with the support of her daughters has agreed to undergo amputation of right above knee amputation tentatively on 08/28/18. Brief conversation with patient`s daughter Zo regarding plan of medical treatment of which she is aggreable to. Expressed concern regarding further complications patient may be faced with. Goals remain aggressive at this time short of no code. Family/Friend Interactions: See interval note. . Advance Directives Living Will: Never completed Health Care Surrogate: Copy in medical record Durable Power of Station Operator: Never completed Advance Directives Date on File: 05/22/18 Health Care Surrogate Name and Number: [facility]: Suyapa Goncalves [phone] Alt: Chemo Pathakyer- [phone] Objective Vital Signs: Vital Signs 08/26/18 16:00 08/26/18 20:00 08/26/18 20:44 Temperature 98 F 98.0 F Pulse Rate 93 H 102 H Respiratory Rate 20 18 Blood Pressure 142/69 H 149/80 H Pulse Oximetry 95 95 95 08/27/18 00:00 08/27/18 04:00 08/27/18 04:21 Temperature 98 F 97.8 F Pulse Rate 104 H 80 82 Respiratory Rate 20 20 Blood Pressure 165/109 H 161/78 H Pulse Oximetry 97 99 08/27/18 08:00 08/27/18 11:24 08/27/18 11:26 Temperature 97.3 F L Pulse Rate 93 H 91 H Respiratory Rate 14 Blood Pressure 178/90 H Pulse Oximetry 93 L 93 L 08/27/18 12:34 08/27/18 13:35 Temperature 98.6 F Pulse Rate 75 89 Respiratory Rate 18 Blood Pressure 129/68 Pulse Oximetry Intake & Output 08/26/18 08/27/18 08/27/18 18:59 06:59 18:59 Intake Total 50 / 50 100 / 100 150 / 150 Output Total 4 / 4 Balance 46 / 46 100 / 100 150 / 150 Weight 35.4 kg Intake: IV 50 / 50 100 / 100 150 / 150 Zosyn 2.25 GM Premix 50 ML @ 50 / 50 100 / 100 50 / 50 100 mls/hr IV.SIG Q6H [facility] Rx#: [id number] Vancomycin Inj 500 MG In NS Inj 100 / 100 100 ML @ 100 mls/hr IV.SIG ONCE ONE Rx#:[id number] Output: Urine 3 / 3 Stool 1 / 1 Other: # Voids 1 Date of Last Bowel Movement 08/26/18 09/25/18 # Incontinent Bowel Movements 1 Physical Exam: CONSTITUTIONAL/GENERAL: This is an elderly, chronically ill, cachectic patient with obvious muscle wasting, and bony prominences, in no acute distress. TUBES/LINES/DRAINS: PIV, right subclavian Reynolds catheter SKIN: No jaundice, rashes, or lesions. Ecchymoses on upper extremities. Wounds to right foot and right hip. HEAD: Atraumatic. Normocephalic. EYES: PERRLA. Fundi not examined. ENT: Hearing grossly normal. Moist oral mucosa. No nasal drainage NECK: Trachea midline. Supple, nontender. CARDIOVASCULAR: S1, S2 normal, no gallops, or rubs. No JVD. Peripheral pulses symmetric. RESPIRATORY/CHEST: Symmetric, unlabored respirations. Diminished breath sounds no wheezes, rales, or rhonchi. GASTROINTESTINAL: Abdomen soft, non-tender, nondistended. No guarding. Bowel sounds present. MUSCULOSKELETAL: Extremities without clubbing. Necrotic right heel and toes with skin discoloration to right pedal. NEUROLOGICAL: Awake, oriented to self, place and situation. Moves all extremities. PSYCHIATRIC: No obvious hallucinations. Calm Diagnostic Tests Laboratory: Laboratory Results - last 72 hr 08/24/18 08/24/18 08/25/18 06:30 21:23 06:08 WBC 29.2 H RBC 3.89 L Hgb 11.3 L D Hct 33.6 L MCV 86.6 MCH 29.1 MCHC 33.7 RDW 16.9 Plt Count 332 MPV 6.7 L Prelim Diff (Auto) Slide review pending Neut % (Auto) 90.9 H Lymph % (Auto) 3.1 L Bureau % (Auto) 5.3 Eos % (Auto) 0.6 Baso % (Auto) 0.1 Neut # (Auto) 26.5 H Lymph # (Auto) 0.9 L Bureau # (Auto) 1.6 H Eos # (Auto) 0.2 Baso # (Auto) 0.0 WBC Differential . Diff Scan Auto diff confirmed Differential Comment . Toxic Granulation 1+ H Acanthocytes (Spur) Occ H Sodium Potassium Chloride Carbon Dioxide Anion Gap BUN Creatinine Estimated GFR Random Glucose Lactic Acid 1.2 Calcium Prot Corrected Calcium Total Bilirubin AST ALT Alkaline Phosphatase Total Protein Albumin Stl C.difficile Tox PCR St C. diff Tox Epid 027 Random Vancomycin Blood Type AB Negative Antibody Screen Negative MTS Gel Crossmatch See Detail Bld Prod Order Comment 08/25/18 08/26/18 08/27/18 06:08 04:53 01:07 WBC RBC Hgb Hct MCV MCH MCHC RDW Plt Count MPV Prelim Diff (Auto) Neut % (Auto) Lymph % (Auto) Bureau % (Auto) Eos % (Auto) Baso % (Auto) Neut # (Auto) Lymph # (Auto) Bureau # (Auto) Eos # (Auto) Baso # (Auto) WBC Differential Diff Scan Differential Comment Toxic Granulation Acanthocytes (Spur) Sodium 143 Potassium 4.0 D Chloride 106 Carbon Dioxide 26.8 D Anion Gap 10 BUN 53 H 50 H Creatinine 2.33 H 2.10 H Estimated GFR 20 L 23 L Random Glucose 118 H Lactic Acid Calcium 7.4 L* Prot Corrected Calcium 7.9 L Total Bilirubin 0.3 AST 27 ALT Less than 6 L Alkaline Phosphatase 119 H Total Protein 6.1 L Albumin 1.8 L Stl C.difficile Tox PCR Negative St C. diff Tox Epid 027 Negative Random Vancomycin 23.8 Blood Type Antibody Screen MTS Gel Crossmatch Bld Prod Order Comment 08/27/18 04:45 WBC RBC Hgb Hct MCV MCH MCHC RDW Plt Count MPV Prelim Diff (Auto) Neut % (Auto) Lymph % (Auto) Bureau % (Auto) Eos % (Auto) Baso % (Auto) Neut # (Auto) Lymph # (Auto) Bureau # (Auto) Eos # (Auto) Baso # (Auto) WBC Differential Diff Scan Differential Comment Toxic Granulation Acanthocytes (Spur) Sodium Potassium Chloride Carbon Dioxide Anion Gap BUN 46 H Creatinine 2.05 H Estimated GFR 24 L Random Glucose Lactic Acid Calcium Prot Corrected Calcium Total Bilirubin AST ALT Alkaline Phosphatase Total Protein Albumin Stl C.difficile Tox PCR St C. diff Tox Epid 027 Random Vancomycin 16.6 Blood Type Antibody Screen MTS Gel Crossmatch Bld Prod Order Comment Result Diagrams: 08/25/18 06:08 08/27/18 04:45 Microbiology: Microbiology 08/27/18 01:07 Stool Occult Blood (DAJA) - Final Stool Hemoccult negative Imaging: Hip CT 08/15/18 00:00 CONCLUSION: 1. Previous internal fixation. 2. No definite evidence for osteomyelitis. 3. Old fractures in the pelvis bilaterally. Femur MRI 08/21/18 07:00 CONCLUSION: 1. There is some thickening and induration of the subcutaneous soft tissues along the posterior aspect of the upper right thigh. 2. No definite loculated fluid collections are demonstrated to suggest a drainable abscess. Reynolds Line Insertion 08/23/18 00:00 CONCLUSION: 1. Uncomplicated Reynolds catheter placement as above. WBC Scan Nuclear Medicine 08/23/18 00:00 CONCLUSION: No focal area of abnormal activity is identified. Abdomen/Pelvis CT 08/24/18 00:00 CONCLUSION: 1. Severe anasarca. Small to moderate bilateral pleural effusions. Trace free fluid in the abdomen. 2. Diffuse mild ileus. 3. Atrophic kidneys with numerous vascular calcifications. Multiple gallstones. Inferior vena cava filter present. Trace pericardial fluid. Chest X-Ray 08/24/18 00:00 CONCLUSION: Worsening bibasilar consolidation and small left effusion. Chest CT 08/24/18 19:44 CONCLUSION: 1. Moderate size left effusion and small right effusion with numerous calcified pleural plaques. Compressive atelectasis in both lungs. No significant edema. 2. Moderate to severe anasarca. 3. Severe coronary artery calcifications. 4. Healing right lower anterior rib fractures. Stable compression deformity upper thoracic spine since 2017. Mild kyphosis and scoliosis. Lower Extremity Ultrasound 08/25/18 00:00 CONCLUSION: 1. Negative exam. Procedures: 08/23/18-Reynolds line incision to right subclavian . Assessment and Plan - Disease Oriented Problem List (1) RADHA (acute kidney injury) (2) Urinary tract infection (3) Coronary artery disease (4) Severe peripheral arterial disease (5) Hypertension (6) Dehydration (7) Pressure ulcer, hip (8) Ulcer of heel (9) Depression - Symptom Scale (1) Pain 0-10 Scale: 7 Comment: Patient has chronic wounds to right lower extremity and right hip. (2) Decreased oral intake 0-10 Scale: Unable to quantify Comment: Patient endorsing nausea, and decreased oral intake. (3) Debility 0-10 Scale: Unable to quantify Comment: Progressive. Pertinent Non-Medical Issues: Psychosocial: Patient is originally from [place]. Patient moved to [place] in 2016. She spent most of a life in [place]. Patient is . She has 2 adult daughters. 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 Spiritual: Patient is Adventist. Dist[employer] Worker [employer] Isac already visited with patient. Legal: Patient Completed healthcare surrogate form 05/22/18 Ethical issues impacting care: None identified at this time. Important Contacts: Healthcare pijkrqqti-indmunmm-[facility] [phone] Alternate healthcare frqphngzi-zbytcluv-Wbrwx, [place]- [phone] Prognosis: Mrs. Smith is a 73 years old female with a medical history significant for peripheral vascular disease status post left above-knee amputation, coronary artery disease, chronic lower extremity wounds, anemia, CHF, COPD, lupus, hypertension and history of DVT. Patient presented to the ER on 08/13/18 in the company of her family with complaints of weakness, dizziness in the past 36 hours prior to presentation ER. Clinical course complicated with renal insufficiency, MRSA urinary tract infection, chronic wounds to right lower extremity with unreconstructable disease and MRSA in wounds, pain, severe protein calorie malnourishment. Given ongoing multiple comorbidities, patient remains at high risk for further complications, deterioration and decline. Code Status: No Code DNR Plan: PLAN: Legal decision maker:Patient is able to participate in medical decision making. In the event that she is incapacitated she has designated her daughter Sacha Dale as her healthcare surrogate and her other daughter Zo Plaza is her alternate healthcare surrogate Goals: Aggressive short on no code. Worsening necrosis to RLE. Patient with the support of her daughters has agreed to proceeding with right above knee amputation due to worsening tissue loss and pain. CODE STATUS: No Code DNR/DNI SYMPTOMS: * Pain: Patient has severe PVD and chronic wounds to right foot and right hip- positive for MRSA. Vascular surgeon has recommended amputation. Wound care following. Patient currently his morphine sulfate 2 mg IV push every 4 hours prn and oxycodone/acetaminophen 5/325 every 4 hours prn for breakthrough pain. Pain adequately managed with current medication regimen. Continue to monitor for pain. * Decreased oral intake: Patient complains of nausea all the times, hence decreased oral intake. Patient gets Ensure with every meal. Encouraged patient to request anti-nausea medication prior to meals. Endorsing improved appetite today. * Nausea: Patient complains of nausea all the times. Zofran available. Currently denying pain. Assess for nausea prior to meals. * Debility: Progressive. Patient has had multiple hospitalizations. She has severe PVD which led to left AKA in April 2018. Patient has been receiving physical therapy at home. Patient has chronic wounds to right lower extremity, which vascular surgeon has recommended amputation. Patient appears debilitated, weak and has lost significant amount of weight and will most likely not participate effectively in physical therapy. Worsening necrosis to RLE-Plan for R AKA on 08/28/18 Palliative care will continue to follow the patient during hospital course as condition evolves, to assist patient/decision-maker with understanding of their medical conditions, weighing benefits/burdens of treatment options, for clarification of goals of treatment. Additionally will assist with any symptoms of palliative concern Attestation Attestation: To help prompt me to consider important information that might be impacting today's encounter and assessment, information from prior notes written by myself or my colleagues may have been "brought forward" into today's note. My signature on this note, however, is an attestation that I personally performed the exam, history, and/or decision-making noted today, and, unless otherwise indicated, the interactions with patient, family, and staff as well as the review of records all occurred today. I also attest that the listed assessment and stated plan reflect my best clinical judgment today based on the combination of historical information, prior notes, and today's exam/ interactions. When time spent is documented, it refers only to time spent today by the signer, or if indicated, combined time spent today by collaborating physician/nurse practitioner.
[2018-08-27 15:29] LABS: Baso # (Auto) 0.1 th/mm3 (0.0-0.2); Eos # (Auto) 0.4 th/mm3 (0.0-0.4); Hematocrit 41.7 % (35.0-46.0); Hemoglobin 13.4 gm/dL (11.6-15.3); Lymph # (Auto) 0.7 th/mm3 (1.0-4.8); Lymph % (Auto) 5.3 % (9.0-44.0); Mean Corpuscular HGB Conc 32.2 % (32.0-36.0); Mean Corpuscular Hemoglobin 29.7 pg (27.0-34.0); Mean Corpuscular Volume 92.2 fL (80.0-100.0); Mean Platelet Volume 7.1 fL (7.0-11.0); Mono # (Auto) 0.7 th/mm3 (0.0-0.9); Mono % (Auto) 4.8 % (0.0-8.0); Neut # (Auto) 11.8 th/mm3 (1.8-7.7); Neut % (Auto) 85.9 % (16.0-70.0); Platelet Count 366 th/mm3 (150-450); Red Blood Count 4.52 mil/mm3 (4.00-5.30); White Blood Count 13.8 th/mm3 (4.0-11.0)
--- NOTE | 2018-08-27 15:43 | XR ---
EXAM DATE: 08/27/2018 12:00 AM EDT AGE/SEX: 73 years / Female INDICATIONS: Right knee pain, no known injury. CLINICAL DATA: This is the patient's initial encounter. Patient reports that signs and symptoms have been present for 3 days and indicates a pain score of 6/10. MEDICAL/SURGICAL HISTORY: Lupus. Osteoporosis. Right hip replacement. . Fem-pop bypass. COMPARISON: No prior exams available for comparison. FINDINGS: Extensive vascular calcifications are evident. Bones are diffusely osteopenic. Alignment is anatomic. Fractures are appreciated. There is no joint e ffusion. Intramedullary rina is present in the distal femur. Vascular stent is evident following the course of the distal FA. CONCLUSION: Negative for fracture Significant atherosclerotic vascular disease. Electronically signed by: Hector Maya MD 08/27/2018 3:42 PM EDT
--- NOTE | 2018-08-27 15:52 | XR ---
EXAM DATE: 08/27/2018 12:00 AM EDT AGE/SEX: 73 years / Female INDICATIONS: Right hip pain, no known injury. CLINICAL DATA: This is the patient's subsequent encounter. Patient reports that signs and symptoms h ave been present for 3 days and indicates a pain score of 6/10. MEDICAL/SURGICAL HISTORY: Osteoporosis. Lupus. . Fem-pop bypass. COMPARISON: POI, XR HIP AP AND LAT, RIGHT, 04/16/2018. . FINDINGS: Multiple stents are identified throughout the right superficial femoral artery. No acute fracture or dislocation is noted. Hardware is noted within the right femur status post ORIF. Bony deformity invol ving the right superior and inferior pubic rami is noted related to healed fractures. Mild degenerati ve changes are noted involving the right hip joint. CONCLUSION: 1. No acute fracture or dislocation. 2. Mild degenerative changes involving the right hip joint. Electronically signed by: Jack Dinh MD 08/27/2018 3:51 PM EDT
[2018-08-27 15:57] LABS: Carbon Dioxide 32.3 meq/L (21.0-32.0); Potassium 3.7 meq/L (3.5-5.1)
--- NOTE | 2018-08-27 16:43 | P.PNID ---
Subjective Remarks: much improved now cont to have very dark colored diarrhea WBC @ 13 K Mental status normal denies abd pain no fever Antibiotics: zosyn vancomycin Allergies/Adverse Reactions: Allergies cephalexin Allergy (Severe, Verified 08/13/18 06:34) rash diatrizoate meglumine Allergy (Severe, Verified 08/13/18 06:34) rash fluconazole Allergy (Severe, Verified 08/13/18 06:34) rash gadobenic acid Allergy (Severe, Verified 08/13/18 06:34) rash gadodiamide Allergy (Severe, Verified 08/13/18 06:34) rash gadoteridol Allergy (Severe, Verified 08/13/18 06:34) rash iodixanol Allergy (Severe, Verified 08/13/18 06:34) rash iohexol Allergy (Severe, Verified 08/13/18 06:34) rash pravastatin Allergy (Severe, Verified 08/13/18 06:34) rash erythromycin base Adverse Reaction (Verified 08/13/18 06:34) Urinary Freq (Inc/Dec) Objective Vital Signs 08/26/18 20:00 08/26/18 20:44 08/27/18 00:00 Temperature 98.0 F 98 F Pulse Rate 102 H 104 H Respiratory Rate 18 20 Blood Pressure 149/80 H 165/109 H Pulse Oximetry 95 95 97 08/27/18 04:00 08/27/18 04:21 08/27/18 08:00 Temperature 97.8 F 97.3 F L Pulse Rate 80 82 93 H Respiratory Rate 20 14 Blood Pressure 161/78 H 178/90 H Pulse Oximetry 99 93 L 08/27/18 11:24 08/27/18 11:26 08/27/18 12:34 Temperature 98.6 F Pulse Rate 91 H 75 Respiratory Rate 18 Blood Pressure 129/68 Pulse Oximetry 93 L 08/27/18 13:35 Temperature Pulse Rate 89 Respiratory Rate Blood Pressure Pulse Oximetry Intake & Output 08/26/18 08/27/18 08/27/18 18:59 06:59 18:59 Intake Total 50 / 50 100 / 100 150 / 150 Output Total 4 / 4 Balance 46 / 46 100 / 100 150 / 150 Weight 35.4 kg Intake: IV 50 / 50 100 / 100 150 / 150 Zosyn 2.25 GM Premix 50 ML @ 50 / 50 100 / 100 50 / 50 100 mls/hr IV.SIG Q6H PENDING SALE TO [facility] Rx#: [id number] Vancomycin Inj 500 MG In NS Inj 100 / 100 100 ML @ 100 mls/hr IV.SIG ONCE ONE Rx#:[id number] Output: Urine 3 / 3 Stool 1 / Other: # Voids 1 Date of Last Bowel Movement 08/26/18 09/25/18 # Incontinent Bowel Movements 1 08/27/18 01:07 Stool Stool Occult Blood (DAJA) - Final Hemoccult negative Lab - Hematology Results 08/27/18 14:52 WBC 13.8 H RBC 4.52 Hgb 13.4 Hct 41.7 MCV 92.2 D MCH 29.7 MCHC 32.2 RDW 18.0 H Plt Count 366 MPV 7.1 Neut % (Auto) 85.9 H Lymph % (Auto) 5.3 L [facility] % (Auto) 4.8 Eos % (Auto) 3.0 Baso % (Auto) 1.0 Neut # (Auto) 11.8 H Lymph # (Auto) 0.7 L [facility] # (Auto) 0.7 Eos # (Auto) 0.4 Baso # (Auto) 0.1 WBC Differential . Differential Comment Auto diff final Lab - Chemistry Results 08/26/18 08/27/18 08/27/18 04:53 04:45 14:52 Sodium 143 Potassium 3.7 Chloride 101 Carbon Dioxide 32.3 H Anion Gap 10 BUN 50 H 46 H 46 H Creatinine 2.10 H 2.05 H 2.24 H Estimated GFR 23 L 24 L 21 L Random Glucose 106 Calcium 8.0 L Imaging: ITS Impressions Hip CT 08/15/18 00:00 CONCLUSION: 1. Previous internal fixation. 2. No definite evidence for osteomyelitis. 3. Old fractures in the pelvis bilaterally. Femur MRI 08/21/18 07:00 CONCLUSION: 1. There is some thickening and induration of the subcutaneous soft tissues along the posterior aspect of the upper right thigh. 2. No definite loculated fluid collections are demonstrated to suggest a drainable abscess. Reynolds Line Insertion 08/23/18 00:00 CONCLUSION: 1. Uncomplicated Reynolds catheter placement as above. WBC Scan Nuclear Medicine 08/23/18 00:00 CONCLUSION: No focal area of abnormal activity is identified. Abdomen/Pelvis CT 08/24/18 00:00 CONCLUSION: 1. Severe anasarca. Small to moderate bilateral pleural effusions. Trace free fluid in the abdomen. 2. Diffuse mild ileus. 3. Atrophic kidneys with numerous vascular calcifications. Multiple gallstones. Inferior vena cava filter present. Trace pericardial fluid. Chest X-Ray 08/24/18 00:00 CONCLUSION: Worsening bibasilar consolidation and small left effusion. Chest CT 08/24/18 19:44 CONCLUSION: 1. Moderate size left effusion and small right effusion with numerous calcified pleural plaques. Compressive atelectasis in both lungs. No significant edema. 2. Moderate to severe anasarca. 3. Severe coronary artery calcifications. 4. Healing right lower anterior rib fractures. Stable compression deformity upper thoracic spine since 2017. Mild kyphosis and scoliosis. Lower Extremity Ultrasound 08/25/18 00:00 CONCLUSION: 1. Negative exam. Hip X-Ray 08/27/18 00:00 CONCLUSION: 1. No acute fracture or dislocation. 2. Mild degenerative changes involving the right hip joint. Knee X-Ray 08/27/18 00:00 CONCLUSION: Negative for fracture Significant atherosclerotic vascular disease. Physical Exam: GENERAL: NAD frail, cachectic elderly pt SKIN: Warm and dry. no rash HEAD: Atraumatic. Normocephalic. EYES: Pupils equal and round. No scleral icterus. No injection or drainage. ENT: No nasal bleeding or discharge. Mucous membranes pink and moist. NECK: Trachea midline. No JVD. CARDIOVASCULAR: Regular rate and rhythm. RESPIRATORY: No accessory muscle use. Clear to auscultation. Breath sounds decreassed bilaterally. Barrel chaped chest GASTROINTESTINAL: Abdomen soft, non-tender, distended. Hepatic and splenic margins not palpable. MUSCULOSKELETAL: Extremities without clubbing, cyanosis, or edema. well healed L AKA R thigh with minimal swelling and redness, small opening is closed no more draining Prominent muscle bulk loss R foot is icy cold to touch and purple with dry gangreneous changes . No refill R groin with multiple lymph nodules enlarged and tender well healed incision NEUROLOGICAL: Awake and alert. Lucid. Speech coherent. Moves all estremeties PSYCHIATRIC: calm, cooperative Assessment and Plan - Plan UTI, grew MRSA PVD sp L AKA and with R heel chronic ulcer, critical ischemia and essentaill early dry gangreene of R foot vascular surgeon recommended R AKA, pt is now agreable R hip drainage x 1 yr probably sinus tract and chronic osteo MRSA clx + - CT wo contrast confirmed intramedullary rina, no s/o osteo or sinus tract Abnormal CXR, can not excude PNA - no infiltrates, just effusions on the CXR CKD Hematuria Severe leukocytosis - probably from R foot sepsis; clinically improved with zosyn Diarrhea, ileus hem + stool - ? ischemia? C.diff negative R groin US negative Pt has extremely poor prognosis. Palliative care follows Acute anemia - dropped 3 units, Hem + CHF Poor perfusion status cont Zosyn cont vancomycin for amputation
[2018-08-27] MEDS: Mirtazapine 15 MG Tablet PO SCH (23:23)
[2018-08-28] MEDS: Acetaminophen/Codeine 300/30 MG Tablet PO PRN ×3 (03:50→13:21)
[2018-08-28] MEDS: hydrALAZINE 10 MG Tablet PO SCH ×3 (03:50→18:33)
[2018-08-28] MEDS: Piperacil/Tazo 2.25 GM Premix 50 ML IV.SIG SCH ×4 (03:55→21:11)
[2018-08-28] MEDS: Morphine Inj 4 MG/ML Vial IV.PUSH PRN ×3 (05:42→20:49)
[2018-08-28] MEDS: Multivitamin/Minerals Therapeutic Tablet PO SCH (08:38)
[2018-08-28] MEDS: amLODIPine 10 MG Tablet PO SCH (08:38)
[2018-08-28] MEDS: Hydroxychloroquine 200 MG Tablet PO SCH (08:38)
[2018-08-28] MEDS: Sertraline 50 MG Tablet PO SCH (08:40)
[2018-08-28] MEDS: Senna/Docusate Sodium 8.6/50 MG Tablet PO SCH ×2 (08:40→21:09)
--- NOTE | 2018-08-28 09:31 | P.PNCV ---
- Note Objective: Vital Signs - 24 hr 08/27/18 11:24 08/27/18 11:26 08/27/18 12:34 Temperature 98.6 F Pulse Rate 91 H 75 Respiratory Rate 18 Blood Pressure 129/68 Pulse Oximetry 93 L 08/27/18 13:35 08/27/18 16:00 08/27/18 19:48 Temperature 97.7 F Pulse Rate 89 73 Respiratory Rate 18 Blood Pressure 116/59 L Pulse Oximetry 93 L 93 L 08/27/18 20:00 08/28/18 00:00 08/28/18 04:00 Temperature 98.8 F 98.6 F 97.6 F Pulse Rate 84 81 85 Respiratory Rate 17 18 17 Blood Pressure 164/75 H 132/66 162/80 H Pulse Oximetry 95 98 100 08/28/18 08:00 08/28/18 09:05 Temperature 98.1 F Pulse Rate 92 H 93 H Respiratory Rate 20 Blood Pressure 170/81 H Pulse Oximetry 92 L Labs: Laboratory Results - last 12 hr 08/28/18 05:35 BUN 50 H Creatinine 2.22 H Estimated GFR 22 L Result Diagrams: 08/27/18 14:52 08/28/18 05:35 Patient with severe PVD and previous LAKA> Patient now has irreversable gangrene and ischemia of the R leg. All vascular and endovascular means have been exhausted and I fully agree with Dr Serrano. patient needs R AKA at this time. Thanks Ney
--- NOTE | 2018-08-28 09:41 | P.PN ---
Subjective Interval history: Follow-up right foot gangrene August 23, 2018-patient seen and examined; complaint of left foot pain. Family by the bedside. Patient now wants foot amputation. Afebrile. Had Reynolds catheter placed this morning. August 24, 2018-patient seen and examined, currently on BiPAP which was ordered overnight. Patient is fidgety and agitated. Daughter by the bedside. August 25, 2018-patient seen and examined, alert however with some confusion. H&H improved after blood transfusion yesterday. Currently on nasal cannula. WBC trending down August 26, 2018-patient seen and examined, no acute event overnight stable .less confused. August 27, 2018-, patient seen and examined, much more alert and oriented x2. Wanting to know exactly her care plan. BP labile. Afebrile. August 28, 2018-patient seen and examined, currently n.p.o. pending right AKA. Family by bedside. No acute event overnight. Afebrile. Physical Exam Vital signs: Vital Signs 08/27/18 11:24 08/27/18 11:26 08/27/18 12:34 Temperature 98.6 F Pulse Rate 91 H 75 Respiratory Rate 18 Blood Pressure 129/68 Pulse Oximetry 93 L 08/27/18 13:35 08/27/18 16:00 08/27/18 19:48 Temperature 97.7 F Pulse Rate 89 73 Respiratory Rate 18 Blood Pressure 116/59 L Pulse Oximetry 93 L 93 L 08/27/18 20:00 08/28/18 00:00 08/28/18 04:00 Temperature 98.8 F 98.6 F 97.6 F Pulse Rate 84 81 85 Respiratory Rate 17 18 17 Blood Pressure 164/75 H 132/66 162/80 H Pulse Oximetry 95 98 100 08/28/18 08:00 08/28/18 09:05 08/28/18 09:36 Temperature 98.1 F 98.1 F Pulse Rate 92 H 93 H 94 H Respiratory Rate 20 16 Blood Pressure 170/81 H 169/75 H Pulse Oximetry 92 L Intake & Output 08/27/18 08/28/18 08/28/18 18:59 06:59 18:59 Intake Total 200 / 200 100 / 100 Balance 200 / 200 100 / 100 Weight 35.8 kg Intake: IV 200 / 200 100 / 100 Zosyn 2.25 GM Premix 50 ML @ 100 / 100 100 / 100 100 mls/hr IV.SIG Q6H [facility] Rx#: [id number] Vancomycin Inj 500 MG In NS Inj 100 / 100 100 ML @ 100 mls/hr IV.SIG ONCE ONE Rx#:[id number] Other: # Voids 1 Date of Last Bowel Movement 08/28/18 08/28/18 # Bowel Movements 2 1 Narrative: GENERAL: NAD SKIN: Warm and dry. HEAD: Atraumatic. Normocephalic. EYES: Pupils equal and round. No scleral icterus. No injection or drainage. ENT: No nasal bleeding or discharge. Mucous membranes pink and moist. NECK: Trachea midline. No JVD. CARDIOVASCULAR: Regular rate and rhythm. S1-S2 no S3 or S4. RESPIRATORY: No accessory muscle use. Clear to auscultation. Breath sounds equal bilaterally. GASTROINTESTINAL: Abdomen soft, non-tender, nondistended. Hepatic and splenic margins not palpable. MUSCULOSKELETAL: Extremities without clubbing, cyanosis, or edema. No obvious deformities. Left [id number] amputation. Right foot bandaged. NEUROLOGICAL: Awake and alert. No obvious cranial nerve deficits. Motor grossly within normal limits. 4 out of 5 muscle strength in the arms and 4/5 in right leg. Not able to bear weight on the right lower extremity at all. Normal speech. Results - Labs CBC & Chem 7: 08/27/18 14:52 08/28/18 05:35 Laboratory Results - last 24 hr 08/27/18 08/27/18 08/28/18 14:52 14:52 05:35 WBC 13.8 H RBC 4.52 Hgb 13.4 Hct 41.7 MCV 92.2 D MCH 29.7 MCHC 32.2 RDW 18.0 H Plt Count 366 MPV 7.1 Neut % (Auto) 85.9 H Lymph % (Auto) 5.3 L [facility] % (Auto) 4.8 Eos % (Auto) 3.0 Baso % (Auto) 1.0 Neut # (Auto) 11.8 H Lymph # (Auto) 0.7 L [facility] # (Auto) 0.7 Eos # (Auto) 0.4 Baso # (Auto) 0.1 WBC Differential . Differential Comment Auto diff final Sodium 143 Potassium 3.7 Chloride 101 Carbon Dioxide 32.3 H Anion Gap 10 BUN 46 H 50 H Creatinine 2.24 H 2.22 H Estimated GFR 21 L 22 L Random Glucose 106 Calcium 8.0 L - Imaging Impressions Hip X-Ray 08/27/18 00:00 CONCLUSION: 1. No acute fracture or dislocation. 2. Mild degenerative changes involving the right hip joint. Knee X-Ray 08/27/18 00:00 CONCLUSION: Negative for fracture Significant atherosclerotic vascular disease. Assessment and Plan - Assessment (1) RADHA (acute kidney injury) Code(s): N17.9 - Acute kidney failure, unspecified Status: Acute (2) Acute UTI Code(s): N39.0 - Urinary tract infection, site not specified Status: Acute (3) Dehydration Code(s): E86.0 - Dehydration Status: Acute (4) Pressure ulcer, hip Code(s): L89.209 - Pressure ulcer of unspecified hip, unspecified stage Status : Acute (5) Severe peripheral arterial disease Code(s): I73.9 - Peripheral vascular disease, unspecified Status: Acute (6) Ulcer of heel Code(s): L97.409 - Non-pressure chronic ulcer of unspecified heel and midfoot with unspecified severity Status: Acute - Plan 73-year-old female with Urinary tract infection MRSA growing in urine. ID is following. Acute respiratory failure-improved -BiPAP PRN -Continue with DuoNeb as needed, Peripheral vascular disease MRSA wound infection Patient has a history of left AKA. Vascular surgery is currently following the patient. Wound care physician has also been consulted. Wound culture growing MRSA. MRI of right hip without obvious infection. -Follow up with vascular surgery and plan for R AKA today 08/28/18 -palliative care ff -Appreciate input from ID and continue vancomycin IV -NM WBC scan negative Renal insufficiency/stage III chronic kidney disease/dehydration -follow BMP as needed and avoid nephrotoxins. Hypocalcemia/Hypomagnesemia/Hypokalemia/Hyponatremia -Improved. Failure to thrive/protein calorie malnourishment severe S/t gastroparesis. -continue on mirtazapine Coronary artery disease -continue on Plavix and apixaban. Tobacco abuse -recommend smoking cessation. Anemia s/p 2 unit blood transfusion August 24, 2018 On apixaban. Hemoccult positive. -consider GI work-up as outpt as hemoglobin is stable. Hypoglycemia -encourage nutrition. Benign labile hypertension -Will Lopressor to 50 mg p.o. twice daily . Will give extra 25 mg today PPx: Apixaban Poor and guarded prognostic
[2018-08-28] MEDS ORDERED: Ketamine Inj 50 MG/5 ML Syringe IV.PUSH ONE (10:06)
[2018-08-28] MEDS ORDERED: Phenylephrine/NS 1000 MCG/10ML Syringe IV.PUSH ONE (10:15)
[2018-08-28] MEDS ORDERED: Lidocaine PF 1% Inj 5 ML Syringe OTHER ONE (10:15)
[2018-08-28] MEDS ORDERED: Heparin Central Flush 100 UNIT/ML 5 ML Vial IV.FLUSH ONE (10:29)
--- NOTE | 2018-08-28 11:16 | P.OP ---
- Preoperative Diagnosis (1) Severe peripheral arterial disease - Postoperative Diagnosis (1) Severe peripheral arterial disease Date of procedure: 08/28/18 Procedure: R AKA Implants: none Anesthesia: GETA Surgeon: Jack Serrano MD Sole Stitcher Hand: Yuli Liu Estimated blood loss (mL): 50 IV fluids (mL): 250 Pathology: other (LEG to pathology) Operation and Findings: AKA intentionally left long because of hardware good perfusion at level of amputation, no undrained infection
[2018-08-28] MEDS: Metoprolol Tartrate 25 MG Tablet PO SCH ×2 (11:23→22:45)
[2018-08-28] MEDS ORDERED: fentaNYL Citrate Inj 100 MCG/2 ML Ampul ONE (11:28)
--- NOTE | 2018-08-28 13:36 | MP ---
cc: Jack Serrano MD DATE OF OPERATION: 08/28/2018 PREOPERATIVE DIAGNOSES: Right lower extremity ischemia, nonreconstructable disease and nonpalpable foot. POSTOPERATIVE DIAGNOSES: Right lower extremity ischemia, nonreconstructable disease and nonpalpable foot. PROCEDURE PERFORMED: Right above-knee amputation. ATTENDING SURGEON: Jack Serrano MD PLANT MAINTENANCE SUPERVISOR SURGEON: DOMINGO Carrion ANESTHESIA: General. INDICATIONS FOR PROCEDURE: Ms. Plaza is a debilitated 73-year-old lady with a left above-knee amputation. She is nonambulatory and has severe gangrene of her right lower extremity. She is taken to the operating room for a right above-knee amputation. She was noted to have extensive orthopedic intramedullary rodding and a long AKA was fashioned. DESCRIPTION OF PROCEDURE: Informed consent was obtained from the patient and her daughter, and she was taken to the operating room and placed supine on the operating table. An appropriate timeout was taken to ensure the patient's identity, operative site and planned procedure. She was on systemic and therapeutic antibiotics and these will be continued postoperatively for ongoing therapy. Everyone in the room agreed with the timeout and we proceeded. The right leg was prepped and draped. An incision was made in the distal aspect of the thigh and carried down through subcutaneous tissue with electrocautery. The knee joint was then entered and the leg was transected. The ligaments were transected and the posterior muscle was transected. The leg was passed off the table as a specimen. The epicondyles were then excised with the oscillating saw and the edges of the bone were softened. The wound was irrigated and reapproximated with interrupted nylon sutures. The sponge and needle counts were correct at the end of the case. I was present, scrubbed, and performed the entire procedure. Jack Serrano MD RJF/pinky , 01:21 PM , 01:28 PM
--- NOTE | 2018-08-28 15:53 | P.PNPAL ---
Reason for Visit Reason for visit: a. To assist with evaluation and management of symptoms including: Pain, decreased oral intake, debility b. To assist medical decision maker(s) with: better understanding of current medical conditions; weighing benefits/burdens of medical treatment options; making medical treatment decisions. Subjective Subjective/Interval History: Follow-up medically necessary for symptom management. Patient seen and examined in her room in the presence of her daughter. Patient endorsing pain to right stump. Patient is lethargic, oriented to self, place and situation. Bedside RN medicating patient for pain with morphine sulfate. Patient underwent right above-knee amputation today 08/28/18 by . Serosanguineous drainage to bulk dressing to right stump. Patient's daughter consent. Vital signs currently stable. SBP in the 120s, heart rate in the 70s , O2 saturation in the mid to high 90s on 4 L nasal cannula. Bedside RN reinforcing dressing and stated she will continue to monitor. Goals remain aggressive per brief discussion with patient's daughter Sacha who is the healthcare surrogate. Family/Friend Interactions: See interval note. Advance Directives Living Will: Never completed Health Care Surrogate: Copy in medical record Durable Power of Fireworks Display Specialist: Never completed Advance Directives Date on File: 05/22/18 Health Care Surrogate Name and Number: HCS: Florecita Goncalvesrayo [phone] Alt: Bola Pathak- [phone] Objective Vital Signs: Vital Signs 08/27/18 16:00 08/27/18 19:48 08/27/18 20:00 Temperature 97.7 F 98.8 F Pulse Rate 73 84 Respiratory Rate 18 17 Blood Pressure 116/59 L 164/75 H Pulse Oximetry 93 L 93 L 95 08/28/18 00:00 08/28/18 04:00 08/28/18 08:00 Temperature 98.6 F 97.6 F 98.1 F Pulse Rate 81 85 92 H Respiratory Rate 18 17 20 Blood Pressure 132/66 162/80 H 170/81 H Pulse Oximetry 98 100 92 L 08/28/18 09:05 08/28/18 09:36 08/28/18 09:42 Temperature 98.1 F 98 F Pulse Rate 93 H 94 H 90 Respiratory Rate 16 14 Blood Pressure 169/75 H 129/63 Pulse Oximetry 98 08/28/18 10:13 08/28/18 11:23 08/28/18 11:30 Temperature 97.9 F Pulse Rate 76 85 Respiratory Rate 11 L 18 Blood Pressure 110/56 L 143/87 H Pulse Oximetry 97 100 95 08/28/18 11:45 08/28/18 12:00 08/28/18 12:15 Temperature 97.9 F Pulse Rate 97 H 97 H 97 H Respiratory Rate 20 24 20 Blood Pressure 140/87 145/73 H 140/73 Pulse Oximetry 100 97 97 08/28/18 13:30 Temperature 98.4 F Pulse Rate 95 H Respiratory Rate 20 Blood Pressure 113/59 L Pulse Oximetry 96 Intake & Output 08/27/18 08/28/18 08/28/18 18:59 06:59 18:59 Intake Total 200 / 200 100 / 100 300 / 300 Output Total 50 / 50 Balance 200 / 200 100 / 100 250 / 250 Weight 35.8 kg Intake: IV 200 / 200 100 / 100 50 / 50 Zosyn 2.25 GM Premix 50 ML @ 100 / 100 100 / 100 50 / 50 100 mls/hr IV.SIG Q6H TY Rx#: [id number] Vancomycin Inj 500 MG In NS Inj 100 / 100 100 ML @ 100 mls/hr IV.SIG ONCE ONE Rx#:[id number] Anesthesia Amount 250 / 250 Output: Estimated Blood Loss 50 / 50 Other: # Voids 1 Date of Last Bowel Movement 08/28/18 08/28/18 # Bowel Movements 2 1 Physical Exam: CONSTITUTIONAL/GENERAL: This is an elderly, chronically ill, cachectic patient with obvious muscle wasting, and bony prominences, in no acute distress. TUBES/LINES/DRAINS: PIV, right subclavian Reynodls catheter SKIN: No jaundice, rashes, or lesions. Pale. Ecchymoses on upper extremities. Wounds to right hip. HEAD: Atraumatic. Normocephalic. EYES: PERRLA. Fundi not examined. ENT: Hearing grossly normal. Moist oral mucosa. No nasal drainage NECK: Trachea midline. Supple, nontender. CARDIOVASCULAR: S1, S2 normal, no gallops, or rubs. No JVD. Peripheral pulses symmetric. RESPIRATORY/CHEST: Symmetric, unlabored respirations. Diminished breath sounds no wheezes, rales, or rhonchi. GASTROINTESTINAL: Abdomen soft, non-tender, nondistended. No guarding. Bowel sounds present. MUSCULOSKELETAL: Extremities without clubbing. Left AKA. s/p right AKA 08/28/18 NEUROLOGICAL: Awake, oriented to self, place and situation. Moves all extremities. PSYCHIATRIC: No obvious hallucinations. Calm Diagnostic Tests Laboratory: Laboratory Results - last 72 hr 08/26/18 08/27/18 08/27/18 04:53 01:07 04:45 WBC RBC Hgb Hct MCV MCH MCHC RDW Plt Count MPV Neut % (Auto) Lymph % (Auto) [place] % (Auto) Eos % (Auto) Baso % (Auto) Neut # (Auto) Lymph # (Auto) [place] # (Auto) Eos # (Auto) Baso # (Auto) WBC Differential Differential Comment Sodium Potassium Chloride Carbon Dioxide Anion Gap BUN 50 H 46 H Creatinine 2.10 H 2.05 H Estimated GFR 23 L 24 L Random Glucose Calcium Stl C.difficile Tox PCR Negative St C. diff Tox Epid 027 Negative Random Vancomycin 16.6 08/27/18 08/27/18 08/28/18 14:52 14:52 05:35 WBC 13.8 H RBC 4.52 Hgb 13.4 Hct 41.7 MCV 92.2 D MCH 29.7 MCHC 32.2 RDW 18.0 H Plt Count 366 MPV 7.1 Neut % (Auto) 85.9 H Lymph % (Auto) 5.3 L [place] % (Auto) 4.8 Eos % (Auto) 3.0 Baso % (Auto) 1.0 Neut # (Auto) 11.8 H Lymph # (Auto) 0.7 L [place] # (Auto) 0.7 Eos # (Auto) 0.4 Baso # (Auto) 0.1 WBC Differential . Differential Comment Auto diff final Sodium 143 Potassium 3.7 Chloride 101 Carbon Dioxide 32.3 H Anion Gap 10 BUN 46 H 50 H Creatinine 2.24 H 2.22 H Estimated GFR 21 L 22 L Random Glucose 106 Calcium 8.0 L Stl C.difficile Tox PCR St C. diff Tox Epid 027 Random Vancomycin Result Diagrams: 08/27/18 14:52 08/28/18 05:35 Microbiology: Microbiology 08/27/18 01:07 Stool Occult Blood (DAJA) - Final Stool Hemoccult negative Imaging: Hip CT 08/15/18 00:00 CONCLUSION: 1. Previous internal fixation. 2. No definite evidence for osteomyelitis. 3. Old fractures in the pelvis bilaterally. Femur MRI 08/21/18 07:00 CONCLUSION: 1. There is some thickening and induration of the subcutaneous soft tissues along the posterior aspect of the upper right thigh. 2. No definite loculated fluid collections are demonstrated to suggest a drainable abscess. Reynolds Line Insertion 08/23/18 00:00 CONCLUSION: 1. Uncomplicated Reynolds catheter placement as above. WBC Scan Nuclear Medicine 08/23/18 00:00 CONCLUSION: No focal area of abnormal activity is identified. Abdomen/Pelvis CT 08/24/18 00:00 CONCLUSION: 1. Severe anasarca. Small to moderate bilateral pleural effusions. Trace free fluid in the abdomen. 2. Diffuse mild ileus. 3. Atrophic kidneys with numerous vascular calcifications. Multiple gallstones. Inferior vena cava filter present. Trace pericardial fluid. Chest X-Ray 08/24/18 00:00 CONCLUSION: Worsening bibasilar consolidation and small left effusion. Chest CT 08/24/18 19:44 CONCLUSION: 1. Moderate size left effusion and small right effusion with numerous calcified pleural plaques. Compressive atelectasis in both lungs. No significant edema. 2. Moderate to severe anasarca. 3. Severe coronary artery calcifications. 4. Healing right lower anterior rib fractures. Stable compression deformity upper thoracic spine since 2017. Mild kyphosis and scoliosis. Lower Extremity Ultrasound 08/25/18 00:00 CONCLUSION: 1. Negative exam. Hip X-Ray 08/27/18 00:00 CONCLUSION: 1. No acute fracture or dislocation. 2. Mild degenerative changes involving the right hip joint. Knee X-Ray 08/27/18 00:00 CONCLUSION: Negative for fracture Significant atherosclerotic vascular disease. Procedures: 08/23/18-Reynolds line incision to right subclavian . Assessment and Plan - Disease Oriented Problem List (1) RADHA (acute kidney injury) (2) Urinary tract infection (3) Coronary artery disease (4) Severe peripheral arterial disease (5) Hypertension (6) Dehydration (7) Pressure ulcer, hip (8) Ulcer of heel (9) Depression - Symptom Scale (1) Pain 0-10 Scale: 8 Comment: Patient has chronic wounds to right lower extremity and right hip. (2) Decreased oral intake 0-10 Scale: Unable to quantify Comment: Patient endorsing nausea, and decreased oral intake. (3) Debility 0-10 Scale: Unable to quantify Comment: Progressive. Pertinent Non-Medical Issues: Psychosocial: Patient is originally from [place]. Patient moved to [place] in 2016. She spent most of a life in [place]. Patient is . She has 2 adult daughters. 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 Spiritual: Patient is Orthodoxy. Blunger Tim already visited with patient. Legal: Patient Completed healthcare surrogate form 05/22/18 Ethical issues impacting care: None identified at this time. Important Contacts: Healthcare [id number]-Efsz, [place] [phone] Alternate healthcare mzaasrgir-cqmcnvtt-Lbeuq, [place]- [phone] Prognosis: Mrs. Smith is a 73 years old female with a medical history significant for peripheral vascular disease status post left above-knee amputation, coronary artery disease, chronic lower extremity wounds, anemia, CHF, COPD, lupus, hypertension and history of DVT. Patient presented to the ER on 08/13/18 in the company of her family with complaints of weakness, dizziness in the past 36 hours prior to presentation ER. Clinical course complicated with renal insufficiency, MRSA urinary tract infection, chronic wounds to right lower extremity with unreconstructable disease and MRSA in wounds, pain, severe protein calorie malnourishment. Given ongoing multiple comorbidities, patient remains at high risk for further complications, deterioration and decline. Code Status: No Code DNR Plan: PLAN: Legal decision maker:Patient is able to participate in medical decision making. In the event that she is incapacitated she has designated her daughter Sacha Dale as her healthcare surrogate and her other daughter Zo Plaza is her alternate healthcare surrogate Goals: Goals remain aggressive short of no code per brief discussion with patient's daughter Sacha who is the healthcare surrogate. Patient underwent right AKA 08/28/18. CODE STATUS: No Code DNR/DNI SYMPTOMS: * Pain: Patient has severe PVD and chronic wounds to right foot and right hip- positive for MRSA. Vascular surgeon has recommended amputation. Wound care following. Patient currently his morphine sulfate 2 mg IV push every 4 hours prn and oxycodone/acetaminophen 5/325 every 4 hours prn for breakthrough pain. Patient endorsing pain to right AKA. Pain adequately managed with current medication regimen. Continue to monitor for pain. * Decreased oral intake: Patient complains of nausea all the times, hence decreased oral intake. Patient gets Ensure with every meal. Encouraged patient to request anti-nausea medication prior to meals. Endorsing improved appetite today. * Nausea: Patient complains of nausea all the times. Zofran available. Currently denying pain. Assess for nausea prior to meals. * Debility: Progressive. Patient has had multiple hospitalizations. She has severe PVD which led to left AKA in April 2018. Patient has been receiving physical therapy at home. Patient has chronic wounds to right lower extremity, which vascular surgeon has recommended amputation. Patient appears debilitated, weak and has lost significant amount of weight and will most likely not participate effectively in physical therapy. Worsening necrosis to RLE-Plan for R AKA on 08/28/18 Palliative care will continue to follow the patient during hospital course as condition evolves, to assist patient/decision-maker with understanding of their medical conditions, weighing benefits/burdens of treatment options, for clarification of goals of treatment. Additionally will assist with any symptoms of palliative concern Attestation Attestation: To help prompt me to consider important information that might be impacting today's encounter and assessment, information from prior notes written by myself or my colleagues may have been "brought forward" into today's note. My signature on this note, however, is an attestation that I personally performed the exam, history, and/or decision-making noted today, and, unless otherwise indicated, the interactions with patient, family, and staff as well as the review of records all occurred today. I also attest that the listed assessment and stated plan reflect my best clinical judgment today based on the combination of historical information, prior notes, and today's exam/ interactions. When time spent is documented, it refers only to time spent today by the signer, or if indicated, combined time spent today by collaborating physician/nurse practitioner.
[2018-08-28] MEDS: Mirtazapine 15 MG Tablet PO SCH (21:09)
[2018-08-29] MEDS: Acetaminophen/Codeine 300/30 MG Tablet PO PRN ×4 (00:22→20:23)
[2018-08-29 01:00] LABS: Baso # (Auto) 0.1 th/mm3 (0.0-0.2); Eos # (Auto) 0.4 th/mm3 (0.0-0.4); Eos % (Auto) 2.6 % (0.0-4.0); Hematocrit 26.3 % (35.0-46.0); Hemoglobin 8.4 gm/dL (11.6-15.3); Lymph # (Auto) 1.3 th/mm3 (1.0-4.8); Lymph % (Auto) 8.7 % (9.0-44.0); Mean Corpuscular HGB Conc 32.2 % (32.0-36.0); Mean Corpuscular Hemoglobin 29.3 pg (27.0-34.0); Mean Platelet Volume 6.8 fL (7.0-11.0); Mono % (Auto) 6.8 % (0.0-8.0); Neut # (Auto) 11.8 th/mm3 (1.8-7.7); Neut % (Auto) 80.9 % (16.0-70.0); Platelet Count 298 th/mm3 (150-450); Red Blood Count 2.89 mil/mm3 (4.00-5.30); Red Cell Distribution Width 17.5 % (11.6-17.2); White Blood Count 14.6 th/mm3 (4.0-11.0)
[2018-08-29] MEDS: hydrALAZINE 10 MG Tablet PO SCH ×3 (02:39→18:15)
[2018-08-29] MEDS: Piperacil/Tazo 2.25 GM Premix 50 ML IV.SIG SCH ×4 (02:39→20:23)
[2018-08-29 06:17] LABS: Baso # (Auto) 0.1 th/mm3 (0.0-0.2); Baso % (Auto) 0.9 % (0.0-2.0); Eos # (Auto) 0.5 th/mm3 (0.0-0.4); Eos % (Auto) 3.4 % (0.0-4.0); Hematocrit 23.5 % (35.0-46.0); Hemoglobin 7.6 gm/dL (11.6-15.3); Lymph # (Auto) 1.2 th/mm3 (1.0-4.8); Lymph % (Auto) 7.3 % (9.0-44.0); Mean Corpuscular HGB Conc 32.6 % (32.0-36.0); Mean Corpuscular Hemoglobin 29.7 pg (27.0-34.0); Mean Corpuscular Volume 91.1 fL (80.0-100.0); Mean Platelet Volume 6.9 fL (7.0-11.0); Mono # (Auto) 0.9 th/mm3 (0.0-0.9); Mono % (Auto) 5.8 % (0.0-8.0); Neut # (Auto) 13.1 th/mm3 (1.8-7.7); Neut % (Auto) 82.6 % (16.0-70.0); Platelet Count 290 th/mm3 (150-450); Red Blood Count 2.57 mil/mm3 (4.00-5.30); Red Cell Distribution Width 17.2 % (11.6-17.2); White Blood Count 15.9 th/mm3 (4.0-11.0)
[2018-08-29] MEDS: Morphine Inj 4 MG/ML Vial IV.PUSH PRN ×2 (09:08→13:23)
[2018-08-29] MEDS ORDERED: Acetaminophen 325 MG Tablet PO PRN (09:19)
[2018-08-29] MEDS: Sertraline 50 MG Tablet PO SCH (09:23)
[2018-08-29] MEDS: Hydroxychloroquine 200 MG Tablet PO SCH (09:23)
[2018-08-29] MEDS: amLODIPine 10 MG Tablet PO SCH (09:23)
[2018-08-29] MEDS: Multivitamin/Minerals Therapeutic Tablet PO SCH (09:23)
[2018-08-29] MEDS: Senna/Docusate Sodium 8.6/50 MG Tablet PO SCH ×2 (09:24→20:23)
--- NOTE | 2018-08-29 09:27 | P.PN ---
Subjective Interval history: Follow-up right foot gangrene August 23, 2018-patient seen and examined; complaint of left foot pain. Family by the bedside. Patient now wants foot amputation. Afebrile. Had Reynolds catheter placed this morning. August 24, 2018-patient seen and examined, currently on BiPAP which was ordered overnight. Patient is fidgety and agitated. Daughter by the bedside. August 25, 2018-patient seen and examined, alert however with some confusion. H&H improved after blood transfusion yesterday. Currently on nasal cannula. WBC trending down August 26, 2018-patient seen and examined, no acute event overnight stable .less confused. August 27, 2018-, patient seen and examined, much more alert and oriented x2. Wanting to know exactly her care plan. BP labile. Afebrile. August 28, 2018-patient seen and examined, currently n.p.o. pending right AKA. Family by bedside. No acute event overnight. Afebrile. August 29, 2018-patient seen and examined, patient status post right AKA. She is alert and oriented x3. H&H dropping. Physical Exam Vital signs: Vital Signs 08/28/18 09:36 08/28/18 09:42 08/28/18 10:13 Temperature 98.1 F 98 F Pulse Rate 94 H 90 Respiratory Rate 16 14 Blood Pressure 169/75 H 129/63 Pulse Oximetry 98 97 08/28/18 11:23 08/28/18 11:30 08/28/18 11:45 Temperature 97.9 F Pulse Rate 76 85 97 H Respiratory Rate 11 L 18 20 Blood Pressure 110/56 L 143/87 H 140/87 Pulse Oximetry 100 95 100 08/28/18 12:00 08/28/18 12:15 08/28/18 13:30 Temperature 97.9 F 98.4 F Pulse Rate 97 H 97 H 95 H Respiratory Rate 24 20 20 Blood Pressure 145/73 H 140/73 113/59 L Pulse Oximetry 97 97 96 08/28/18 16:00 08/28/18 18:31 08/28/18 19:16 Temperature 98.3 F 98.1 F 97.9 F Pulse Rate 97 H 89 90 Respiratory Rate 20 18 Blood Pressure 129/60 121/61 120/63 Pulse Oximetry 98 99 08/28/18 19:17 08/29/18 00:00 08/29/18 00:55 Temperature 98.1 F Pulse Rate 92 H Respiratory Rate 18 18 Blood Pressure 131/62 Pulse Oximetry 99 99 08/29/18 02:36 08/29/18 04:00 08/29/18 04:49 Temperature 98.1 F Pulse Rate 85 85 85 Respiratory Rate 18 18 Blood Pressure 131/64 124/60 Pulse Oximetry 100 97 08/29/18 08:00 Temperature 97.9 F Pulse Rate 87 Respiratory Rate 16 Blood Pressure 104/61 Pulse Oximetry 100 Intake & Output 08/28/18 08/29/18 08/29/18 18:59 06:59 18:59 Intake Total 300 / 300 950 / 950 Output Total 50 / 50 Balance 250 / 250 950 / 950 Weight 36 kg Intake: IV 50 / 50 150 / 150 Zosyn 2.25 GM Premix 50 ML @ 50 / 50 150 / 150 100 mls/hr IV.SIG Q6H TY Rx#: [id number] Oral 800 / 800 Anesthesia Amount 250 / 250 Output: Estimated Blood Loss 50 / 50 Other: # Voids 2 Date of Last Bowel Movement 08/29/18 08/28/18 08/29/18 # Bowel Movements 1 1 1 # Incontinent Bowel Movements 1 Narrative: GENERAL: NAD SKIN: Warm and dry. HEAD: Atraumatic. Normocephalic. EYES: Pupils equal and round. No scleral icterus. No injection or drainage. ENT: No nasal bleeding or discharge. Mucous membranes pink and moist. NECK: Trachea midline. No JVD. CARDIOVASCULAR: Regular rate and rhythm. S1-S2 no S3 or S4. RESPIRATORY: No accessory muscle use. Clear to auscultation. Breath sounds equal bilaterally. GASTROINTESTINAL: Abdomen soft, non-tender, nondistended. Hepatic and splenic margins not palpable. MUSCULOSKELETAL: Extremities without clubbing, cyanosis, or edema. No obvious deformities. Left [id number] amputation. dressing over right stump NEUROLOGICAL: Awake and alert. No obvious cranial nerve deficits. Motor grossly within normal limits. 4 out of 5 muscle strength in the arms . Normal speech. Results - Labs CBC & Chem 7: 08/29/18 06:05 08/28/18 05:35 Laboratory Results - last 24 hr 08/29/18 08/29/18 08/29/18 00:50 06:05 06:05 WBC 14.6 H 15.9 H RBC 2.89 L 2.57 L Hgb 8.4 L D 7.6 L Hct 26.3 L 23.5 L MCV 91.0 91.1 MCH 29.3 29.7 MCHC 32.2 32.6 RDW 17.5 H 17.2 Plt Count 298 290 MPV 6.8 L 6.9 L Neut % (Auto) 80.9 H 82.6 H Lymph % (Auto) 8.7 L 7.3 L [place] % (Auto) 6.8 5.8 Eos % (Auto) 2.6 3.4 Baso % (Auto) 1.0 0.9 Neut # (Auto) 11.8 H 13.1 H Lymph # (Auto) 1.3 1.2 [place] # (Auto) 1.0 H 0.9 Eos # (Auto) 0.4 0.5 H Baso # (Auto) 0.1 0.1 WBC Differential . . Differential Comment Auto diff final Auto diff final Random Vancomycin 17.9 - Procedures Right AKA August 28, 2018 Assessment and Plan - Assessment (1) RADHA (acute kidney injury) Code(s): N17.9 - Acute kidney failure, unspecified Status: Acute (2) Acute UTI Code(s): N39.0 - Urinary tract infection, site not specified Status: Acute (3) Dehydration Code(s): E86.0 - Dehydration Status: Acute (4) Pressure ulcer, hip Code(s): L89.209 - Pressure ulcer of unspecified hip, unspecified stage Status : Acute (5) Severe peripheral arterial disease Code(s): I73.9 - Peripheral vascular disease, unspecified Status: Acute (6) Ulcer of heel Code(s): L97.409 - Non-pressure chronic ulcer of unspecified heel and midfoot with unspecified severity Status: Acute - Plan 73-year-old female with Peripheral vascular disease MRSA wound infection Right leg gangrene Patient has a history of left AKA. -s/p Right AKA 08/28/18, management per vascular surgery -palliative care ff -Appreciate input from ID and continue vancomycin IV -NM WBC scan negative Renal insufficiency/stage III chronic kidney disease/dehydration -follow BMP as needed and avoid nephrotoxins. Hypocalcemia/Hypomagnesemia/Hypokalemia/Hyponatremia -Improved. Failure to thrive/protein calorie malnourishment severe S/t gastroparesis. -continue on mirtazapine Coronary artery disease -continue on Plavix and apixaban. Tobacco abuse -recommend smoking cessation. Acute blood loss from Surgery -Transfuse 1 unit packed red blood cell August 29, 2018 -Last transfusion 2 units August 24, 2018 Hypoglycemia -encourage nutrition. Benign labile hypertension -Currently on Lopressor 50 mg p.o. twice daily . PPx: Apixaban Poor and guarded prognostic
[2018-08-29] MEDS ORDERED: Sodium Chlor 0.9% Inj 250 ML IV.SIG SCH (10:00)
--- NOTE | 2018-08-29 10:08 | P.PNVS ---
Subjective Post Op Day #: 1 Procedure: Open RIGHT AKA Subjective/Hospital Course: 73/F alert sitting in bed this am requesting coffee Speech clear Pt reported a painful night last night with dressing change Pain controlled this am Dressing to R AKA saturated Pt denied SOB, CP and weakness Objective Vital Signs / I&O: Vital Signs 08/28/18 09:42 08/28/18 10:13 08/28/18 11:23 Temperature 98 F 97.9 F Pulse Rate 90 76 Respiratory Rate 14 11 L Blood Pressure 129/63 110/56 L Pulse Oximetry 98 97 100 08/28/18 11:30 08/28/18 11:45 08/28/18 12:00 Temperature Pulse Rate 85 97 H 97 H Respiratory Rate 18 20 24 Blood Pressure 143/87 H 140/87 145/73 H Pulse Oximetry 95 100 97 08/28/18 12:15 08/28/18 13:30 08/28/18 16:00 Temperature 97.9 F 98.4 F 98.3 F Pulse Rate 97 H 95 H 97 H Respiratory Rate 20 20 20 Blood Pressure 140/73 113/59 L 129/60 Pulse Oximetry 97 96 98 08/28/18 18:31 08/28/18 19:16 08/28/18 19:17 Temperature 98.1 F 97.9 F Pulse Rate 89 90 Respiratory Rate 18 Blood Pressure 121/61 120/63 Pulse Oximetry 99 99 08/29/18 00:00 08/29/18 00:55 08/29/18 02:36 Temperature 98.1 F Pulse Rate 92 H 85 Respiratory Rate 18 18 18 Blood Pressure 131/62 131/64 Pulse Oximetry 99 100 08/29/18 04:00 08/29/18 04:49 08/29/18 08:00 Temperature 98.1 F 97.9 F Pulse Rate 85 85 87 Respiratory Rate 18 16 Blood Pressure 124/60 104/61 Pulse Oximetry 97 100 Intake & Output 08/28/18 08/29/18 08/29/18 18:59 06:59 18:59 Intake Total 300 / 300 950 / 950 Output Total 50 / 50 Balance 250 / 250 950 / 950 Weight 36 kg Intake: IV 50 / 50 150 / 150 Zosyn 2.25 GM Premix 50 ML @ 50 / 50 150 / 150 100 mls/hr IV.SIG Q6H [facility] Rx#: [id number] Oral 800 / 800 Anesthesia Amount 250 / 250 Output: Estimated Blood Loss 50 / 50 Other: # Voids 2 Date of Last Bowel Movement 08/29/18 08/28/18 08/29/18 # Bowel Movements 1 1 1 # Incontinent Bowel Movements 1 Exam: GENERAL: Alert in NAD, GCS15 SKIN: Warm and dry R AKA incision site w/ a fair amount of serosanguineous drainage (middle of incision) with several blood clots Sutures intact [place] wound w/o skin changes or erythema CARDIOVASCULAR: Regular rate and rhythm without murmurs, gallops, or rubs. RESPIRATORY: Breath sounds equal bilaterally. No accessory muscle use. GASTROINTESTINAL: Abdomen soft, non-tender, nondistended. MUSCULOSKELETAL: No cyanosis, or edema. Laboratory Results - last 24 hr 08/29/18 08/29/18 08/29/18 00:50 06:05 06:05 WBC 14.6 H 15.9 H RBC 2.89 L 2.57 L Hgb 8.4 L D 7.6 L Hct 26.3 L 23.5 L MCV 91.0 91.1 MCH 29.3 29.7 MCHC 32.2 32.6 RDW 17.5 H 17.2 Plt Count 298 290 MPV 6.8 L 6.9 L Neut % (Auto) 80.9 H 82.6 H Lymph % (Auto) 8.7 L 7.3 L [place] % (Auto) 6.8 5.8 Eos % (Auto) 2.6 3.4 Baso % (Auto) 1.0 0.9 Neut # (Auto) 11.8 H 13.1 H Lymph # (Auto) 1.3 1.2 [place] # (Auto) 1.0 H 0.9 Eos # (Auto) 0.4 0.5 H Baso # (Auto) 0.1 0.1 WBC Differential . . Differential Comment Auto diff final Auto diff final Random Vancomycin 17.9 Assessment and Plan - Plan 73/F with a PMH of severe PAD Pt underwent a L AKA on 05/22/18 Pt w/ a HX of Severe R LE arterial occlusive disease with worsening tissue loss Pt S/P open RIGHT AKA AM labs reviewed (H&H decreasing) - Blood transfusion ordered via Hospitalist Plan Continue pain control Ordered a trapeze bed frame Continue dressing changes as ordered- ara wrap R AKA to control drainage Ceci Baptiste NP [facility]/[place] [phone] Discharge Planning: D/C planning to [facility]
[2018-08-29] MEDS: Metoprolol Tartrate 25 MG Tablet PO SCH ×2 (11:50→23:24)
--- NOTE | 2018-08-29 12:18 | P.PNPAL ---
Reason for Visit Reason for visit: a. To assist with evaluation and management of symptoms including: Pain, decreased oral intake, debility b. To assist medical decision maker(s) with: better understanding of current medical conditions; weighing benefits/burdens of medical treatment options; making medical treatment decisions. Subjective Subjective/Interval History: Follow-up medically necessary for symptom management. Patient is awake, alert, oriented to self, place and situation. Patient endorsing pain to right stump, bedside RN currently at bedside medicating patient. Patient required x3 2mg morphine sulfate IVP doses in the past 24 hours and x2 oxycodone/acetaminophen 5 /325 doses. Patient and daughter Sacha ([facility]) voicing concern that patient is having to wait for a long time when she requests pain medication. Bulk dressing to right stump saturated with sanguinous drainage. Per bedside RN, dressing was changed this morning by vascular surgical numbness practitioner. Laboratory workup today revealing WBC 15.9, hemoglobin 7.6, hematocrit 23.5, platelet count 290, BUN/creatinine 50/2.22. Per bedside RN, she has an order to tranfuse 1 unit pRBC today. Case discussed with bedside RN. Family/Friend Interactions: See interval note Advance Directives Living Will: Never completed Health Care Surrogate: Copy in medical record Durable Power of Health Type Technician: Never completed Advance Directives Date on File: 05/22/18 Health Care Surrogate Name and Number: [facility]: Suyapa Goncalves [phone] Alt: [place]ola Pathak- [phone] Objective Vital Signs: Vital Signs 08/28/18 12:15 08/28/18 13:30 08/28/18 16:00 Temperature 97.9 F 98.4 F 98.3 F Pulse Rate 97 H 95 H 97 H Respiratory Rate 20 20 20 Blood Pressure 140/73 113/59 L 129/60 Pulse Oximetry 97 96 98 08/28/18 18:31 08/28/18 19:16 08/28/18 19:17 Temperature 98.1 F 97.9 F Pulse Rate 89 90 Respiratory Rate 18 Blood Pressure 121/61 120/63 Pulse Oximetry 99 99 08/29/18 00:00 08/29/18 00:55 08/29/18 02:36 Temperature 98.1 F Pulse Rate 92 H 85 Respiratory Rate 18 18 18 Blood Pressure 131/62 131/64 Pulse Oximetry 99 100 08/29/18 04:00 08/29/18 04:49 08/29/18 08:00 Temperature 98.1 F 97.9 F Pulse Rate 85 85 87 Respiratory Rate 18 16 Blood Pressure 124/60 104/61 Pulse Oximetry 97 100 08/29/18 09:55 Temperature Pulse Rate Respiratory Rate 16 Blood Pressure Pulse Oximetry Intake & Output 08/28/18 08/29/18 08/29/18 18:59 06:59 18:59 Intake Total 300 / 300 950 / 950 50 / 50 Output Total 50 / 50 Balance 250 / 250 950 / 950 50 / 50 Weight 36 kg Intake: IV 50 / 50 150 / 150 50 / 50 Zosyn 2.25 GM Premix 50 ML @ 50 / 50 150 / 150 50 / 50 100 mls/hr IV.SIG Q6H TY Rx#: [id number] Oral 800 / 800 Anesthesia Amount 250 / 250 Output: Estimated Blood Loss 50 / 50 Other: # Voids 2 Date of Last Bowel Movement 08/29/18 08/28/18 08/29/18 # Bowel Movements 1 1 1 # Incontinent Bowel Movements 1 Physical Exam: CONSTITUTIONAL/GENERAL: This is an elderly, chronically ill, cachectic patient with obvious muscle wasting, and bony prominences, in no acute distress. TUBES/LINES/DRAINS: PIV, right subclavian Reynolds catheter SKIN: No jaundice, rashes, or lesions. Pale. Ecchymoses on upper extremities. Wounds to right hip. EYES: PERRLA. Fundi not examined. ENT: Hearing grossly normal. Moist oral mucosa. No nasal drainage CARDIOVASCULAR: S1, S2 normal, no gallops, or rubs. No JVD. Peripheral pulses symmetric. RESPIRATORY/CHEST: Symmetric, unlabored respirations. Diminished breath sounds no wheezes, rales, or rhonchi. GASTROINTESTINAL: Abdomen soft, non-tender, nondistended. No guarding. Bowel sounds present. MUSCULOSKELETAL: Extremities without clubbing. Left AKA. s/p right AKA 08/28/18 NEUROLOGICAL: Awake, oriented to self, place and situation. Moves all extremities. PSYCHIATRIC: No obvious hallucinations. Calm Diagnostic Tests Laboratory: Laboratory Results - last 72 hr 08/27/18 08/27/18 08/27/18 01:07 04:45 14:52 WBC 13.8 H RBC 4.52 Hgb 13.4 Hct 41.7 MCV 92.2 D MCH 29.7 MCHC 32.2 RDW 18.0 H Plt Count 366 MPV 7.1 Neut % (Auto) 85.9 H Lymph % (Auto) 5.3 L Otero % (Auto) 4.8 Eos % (Auto) 3.0 Baso % (Auto) 1.0 Neut # (Auto) 11.8 H Lymph # (Auto) 0.7 L Otero # (Auto) 0.7 Eos # (Auto) 0.4 Baso # (Auto) 0.1 WBC Differential . Differential Comment Auto diff final Sodium Potassium Chloride Carbon Dioxide Anion Gap BUN 46 H Creatinine 2.05 H Estimated GFR 24 L Random Glucose Calcium Stl C.difficile Tox PCR Negative St C. diff Tox Epid 027 Negative Random Vancomycin 16.6 Blood Type XebiaLabs Gel Crossmatch 08/27/18 08/28/18 08/29/18 14:52 05:35 00:50 WBC 14.6 H RBC 2.89 L Hgb 8.4 L D Hct 26.3 L MCV 91.0 MCH 29.3 MCHC 32.2 RDW 17.5 H Plt Count 298 MPV 6.8 L Neut % (Auto) 80.9 H Lymph % (Auto) 8.7 L Otero % (Auto) 6.8 Eos % (Auto) 2.6 Baso % (Auto) 1.0 Neut # (Auto) 11.8 H Lymph # (Auto) 1.3 Otero # (Auto) 1.0 H Eos # (Auto) 0.4 Baso # (Auto) 0.1 WBC Differential . Differential Comment Auto diff final Sodium 143 Potassium 3.7 Chloride 101 Carbon Dioxide 32.3 H Anion Gap 10 BUN 46 H 50 H Creatinine 2.24 H 2.22 H Estimated GFR 21 L 22 L Random Glucose 106 Calcium 8.0 L Stl C.difficile Tox PCR St C. diff Tox Epid 027 Random Vancomycin Blood Type MTS Gel Crossmatch 08/29/18 08/29/18 08/29/18 06:05 06:05 11:12 WBC 15.9 H RBC 2.57 L Hgb 7.6 L Hct 23.5 L MCV 91.1 MCH 29.7 MCHC 32.6 RDW 17.2 Plt Count 290 MPV 6.9 L Neut % (Auto) 82.6 H Lymph % (Auto) 7.3 L Otero % (Auto) 5.8 Eos % (Auto) 3.4 Baso % (Auto) 0.9 Neut # (Auto) 13.1 H Lymph # (Auto) 1.2 Otero # (Auto) 0.9 Eos # (Auto) 0.5 H Baso # (Auto) 0.1 WBC Differential . Differential Comment Auto diff final Sodium Potassium Chloride Carbon Dioxide Anion Gap BUN Creatinine Estimated GFR Random Glucose Calcium Stl C.difficile Tox PCR St C. diff Tox Epid 027 Random Vancomycin 17.9 Blood Type AB Negative MTS Gel Crossmatch See Detail Result Diagrams: 08/29/18 06:05 08/28/18 05:35 Microbiology: Microbiology 08/27/18 01:07 Stool Occult Blood (DAJA) - Final Stool Hemoccult negative Imaging: Hip CT 08/15/18 00:00 CONCLUSION: 1. Previous internal fixation. 2. No definite evidence for osteomyelitis. 3. Old fractures in the pelvis bilaterally. Femur MRI 08/21/18 07:00 CONCLUSION: 1. There is some thickening and induration of the subcutaneous soft tissues along the posterior aspect of the upper right thigh. 2. No definite loculated fluid collections are demonstrated to suggest a drainable abscess. Reynolds Line Insertion 08/23/18 00:00 CONCLUSION: 1. Uncomplicated Reynolds catheter placement as above. WBC Scan Nuclear Medicine 08/23/18 00:00 CONCLUSION: No focal area of abnormal activity is identified. Abdomen/Pelvis CT 08/24/18 00:00 CONCLUSION: 1. Severe anasarca. Small to moderate bilateral pleural effusions. Trace free fluid in the abdomen. 2. Diffuse mild ileus. 3. Atrophic kidneys with numerous vascular calcifications. Multiple gallstones. Inferior vena cava filter present. Trace pericardial fluid. Chest X-Ray 08/24/18 00:00 CONCLUSION: Worsening bibasilar consolidation and small left effusion. Chest CT 08/24/18 19:44 CONCLUSION: 1. Moderate size left effusion and small right effusion with numerous calcified pleural plaques. Compressive atelectasis in both lungs. No significant edema. 2. Moderate to severe anasarca. 3. Severe coronary artery calcifications. 4. Healing right lower anterior rib fractures. Stable compression deformity upper thoracic spine since 2017. Mild kyphosis and scoliosis. Lower Extremity Ultrasound 08/25/18 00:00 CONCLUSION: 1. Negative exam. Hip X-Ray 08/27/18 00:00 CONCLUSION: 1. No acute fracture or dislocation. 2. Mild degenerative changes involving the right hip joint. Knee X-Ray 08/27/18 00:00 CONCLUSION: Negative for fracture Significant atherosclerotic vascular disease. Procedures: 08/23/18-Reynolds line incision to right subclavian 08/28/18-right above-knee amputation . Assessment and Plan - Disease Oriented Problem List (1) RADHA (acute kidney injury) (2) Urinary tract infection (3) Coronary artery disease (4) Severe peripheral arterial disease (5) Hypertension (6) Dehydration (7) Pressure ulcer, hip (8) Ulcer of heel (9) Depression - Symptom Scale (1) Pain 0-10 Scale: 6 Comment: Patient has chronic wounds to right lower extremity and right hip. (2) Decreased oral intake 0-10 Scale: Unable to quantify Comment: Patient endorsing nausea, and decreased oral intake. (3) Debility 0-10 Scale: Unable to quantify Comment: Progressive. Pertinent Non-Medical Issues: Psychosocial: Patient is originally from [place]. Patient moved to [place] in 2016. She spent most of a life in [place]. Patient is . She has 2 adult daughters. 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 Spiritual: Patient is [employer]. Doctor Of Osteopathy [place] already visited with patient. Legal: Patient Completed healthcare surrogate form 05/22/18 Ethical issues impacting care: None identified at this time. Important Contacts: Healthcare [facility] [phone] Alternate healthcare osfpfzemi-[facility], [place]- [phone] Prognosis: Mrs. Smith is a 73 years old female with a medical history significant for peripheral vascular disease status post left above-knee amputation, coronary artery disease, chronic lower extremity wounds, anemia, CHF, COPD, lupus, hypertension and history of DVT. Patient presented to the ER on 08/13/18 in the company of her family with complaints of weakness, dizziness in the past 36 hours prior to presentation ER. Clinical course complicated with renal insufficiency, MRSA urinary tract infection, chronic wounds to right lower extremity with unreconstructable disease and MRSA in wounds, pain, severe protein calorie malnourishment. Given ongoing multiple comorbidities, patient remains at high risk for further complications, deterioration and decline. Code Status: No Code DNR Plan: PLAN: Legal decision maker:Patient is able to participate in medical decision making. In the event that she is incapacitated she has designated her daughter Sacha Dale as her healthcare surrogate and her other daughter Zo Plaza is her alternate healthcare surrogate Goals: Goals remain aggressive short of no code. Patient is status postop day 2 right AKA. Hemoglobin dropping, plan for transfusion of 1 unit PRBC today. Patient with the support of her daughter Sacha and Zo would like to continue with aggressive treatment. CODE STATUS: No Code DNR/DNI SYMPTOMS: * Pain: Patient has severe PVD and chronic wounds to right foot and right hip- positive for MRSA. Vascular surgeon has recommended amputation. Wound care following. Patient endorsing pain to right AKA. Patient states that she has been having pain through out the night from right stump. Patient required x3 2mg morphine sulfate IVP doses in the past 24 hours and x2 oxycodone/ acetaminophen 5/325 doses. Continue to monitor for pain. * Decreased oral intake: Patient complains of nausea all the times, hence decreased oral intake. Patient gets Ensure with every meal. Encouraged patient to request anti-nausea medication prior to meals. Endorsing improved appetite today. * Nausea: Patient complains of nausea all the times. Zofran available. Currently denying pain. Assess for nausea prior to meals. * Debility: Progressive. Patient has had multiple hospitalizations. She has severe PVD which led to left AKA in April 2018. Patient has been receiving physical therapy at home. Patient has chronic wounds to right lower extremity, which vascular surgeon has recommended amputation. Patient appears debilitated, weak and has lost significant amount of weight and will most likely not participate effectively in physical therapy. Worsening necrosis to RLE-Plan for R AKA on 08/28/18 Palliative care will continue to follow the patient during hospital course as condition evolves, to assist patient/decision-maker with understanding of their medical conditions, weighing benefits/burdens of treatment options, for clarification of goals of treatment. Additionally will assist with any symptoms of palliative concern Attestation Attestation: To help prompt me to consider important information that might be impacting today's encounter and assessment, information from prior notes written by myself or my colleagues may have been "brought forward" into today's note. My signature on this note, however, is an attestation that I personally performed the exam, history, and/or decision-making noted today, and, unless otherwise indicated, the interactions with patient, family, and staff as well as the review of records all occurred today. I also attest that the listed assessment and stated plan reflect my best clinical judgment today based on the combination of historical information, prior notes, and today's exam/ interactions. When time spent is documented, it refers only to time spent today by the signer, or if indicated, combined time spent today by collaborating physician/nurse practitioner.
--- NOTE | 2018-08-29 18:17 | P.PNVS ---
Subjective Subjective/Hospital Course: Pt slightly hypotensive but responsive R AKA with 50cc serosanguinous drainage, no active bleeding getting PRBC now Objective Vital Signs / I&O: Vital Signs 08/28/18 18:31 08/28/18 19:16 08/28/18 19:17 Temperature 98.1 F 97.9 F Pulse Rate 89 90 Respiratory Rate 18 Blood Pressure 121/61 120/63 Pulse Oximetry 99 99 08/29/18 00:00 08/29/18 00:55 08/29/18 02:36 Temperature 98.1 F Pulse Rate 92 H 85 Respiratory Rate 18 18 18 Blood Pressure 131/62 131/64 Pulse Oximetry 99 100 08/29/18 04:00 08/29/18 04:49 08/29/18 08:00 Temperature 98.1 F 97.9 F Pulse Rate 85 85 87 Respiratory Rate 18 16 Blood Pressure 124/60 104/61 Pulse Oximetry 97 100 08/29/18 09:55 08/29/18 12:00 08/29/18 13:25 Temperature 97.9 F Pulse Rate 95 H Respiratory Rate 16 16 16 Blood Pressure 123/79 Pulse Oximetry 100 08/29/18 15:32 08/29/18 16:00 08/29/18 16:45 Temperature 97.9 F 97.9 F Pulse Rate 92 H 95 H Respiratory Rate 16 18 16 Blood Pressure 80/54 L 123/79 Pulse Oximetry 90 L 100 08/29/18 16:46 08/29/18 17:15 Temperature 93.6 F L 93.5 F L Pulse Rate 82 86 Respiratory Rate 20 20 Blood Pressure 75/46 L 77/45 L Pulse Oximetry Intake & Output 08/28/18 08/29/18 08/29/18 18:59 06:59 18:59 Intake Total 300 / 300 950 / 950 200 / 200 Output Total 50 / 50 2 / 2 Balance 250 / 250 950 / 950 198 / 198 Weight 36 kg Intake: IV 50 / 50 150 / 150 200 / 200 Zosyn 2.25 GM Premix 50 ML @ 50 / 50 150 / 150 100 / 100 100 mls/hr IV.SIG Q6H TY Rx#: [id number] Vancomycin Inj 500 MG In NS Inj 100 / 100 100 ML @ 200 mls/hr IV.SIG ONCE ONE Rx#:[id number] Oral 800 / 800 Anesthesia Amount 250 / 250 Intake (Blood Product) Amt 0 / 0 Rbc As-3 Leukoreduced Unit 0 / 0 [id number] Output: Urine 2 / 2 Estimated Blood Loss 50 / 50 Other: # Voids 2 Date of Last Bowel Movement 08/29/18 08/28/18 08/29/18 # Bowel Movements 1 1 2 # Incontinent Bowel Movements 1 Physical Exam: somnolent but responsive to voice and pain does not appear to be in distress R AKA with minimal old blood but no active bleeding Laboratory Results - last 24 hr 08/24/18 08/29/18 08/29/18 06:30 00:50 06:05 WBC 14.6 H RBC 2.89 L Hgb 8.4 L D Hct 26.3 L MCV 91.0 MCH 29.3 MCHC 32.2 RDW 17.5 H Plt Count 298 MPV 6.8 L Neut % (Auto) 80.9 H Lymph % (Auto) 8.7 L Starke % (Auto) 6.8 Eos % (Auto) 2.6 Baso % (Auto) 1.0 Neut # (Auto) 11.8 H Lymph # (Auto) 1.3 Starke # (Auto) 1.0 H Eos # (Auto) 0.4 Baso # (Auto) 0.1 WBC Differential . Differential Comment Auto diff final Random Vancomycin 17.9 Blood Type Antibody Screen MTS Gel Crossmatch See Detail 08/29/18 08/29/18 06:05 11:12 WBC 15.9 H RBC 2.57 L Hgb 7.6 L Hct 23.5 L MCV 91.1 MCH 29.7 MCHC 32.6 RDW 17.2 Plt Count 290 MPV 6.9 L Neut % (Auto) 82.6 H Lymph % (Auto) 7.3 L Starke % (Auto) 5.8 Eos % (Auto) 3.4 Baso % (Auto) 0.9 Neut # (Auto) 13.1 H Lymph # (Auto) 1.2 Starke # (Auto) 0.9 Eos # (Auto) 0.5 H Baso # (Auto) 0.1 WBC Differential . Differential Comment Auto diff final Random Vancomycin Blood Type AB Negative Antibody Screen Negative MTS Gel Crossmatch See Detail Assessment and Plan - Plan POD#1 s/p open R AKA 1. Tx PRBC 2. Needs nutrition 3. Compression to leg - reapplied MANSI tonight. 4. Discussed with daughter Discharge Planning: D/C [facility]
[2018-08-29] MEDS: Mirtazapine 15 MG Tablet PO SCH (20:23)
--- NOTE | 2018-08-29 23:47 | P.PNADD ---
Addendum to Inpatient Note Reason for Addendum: Additional Documentation Additional information: Resident team notified of HALICAT at 11:25PM. Resident team responded to HALICAT. Primary team was notified and had placed orders prior to arrival. Patient condition improved upon arrival to patient room. Will defer further care to primary team.
[2018-08-30] LABS: Baso % (Auto) 0.1 % (0.0-2.0); Eos % (Auto) 0.1 % (0.0-4.0); Hematocrit 22.1 % (35.0-46.0); Hemoglobin 7.4 gm/dL (11.6-15.3); Lymph # (Auto) 0.9 th/mm3 (1.0-4.8); Lymph % (Auto) 3.5 % (9.0-44.0); Mean Corpuscular HGB Conc 33.4 % (32.0-36.0); Mean Corpuscular Hemoglobin 27.3 pg (27.0-34.0); Mean Corpuscular Volume 81.7 fL (80.0-100.0); Mean Platelet Volume 7.3 fL (7.0-11.0); Mono # (Auto) 1.1 th/mm3 (0.0-0.9); Mono % (Auto) 4.3 % (0.0-8.0); Neut # (Auto) 23.7 th/mm3 (1.8-7.7); Platelet Count 251 th/mm3 (150-450); Red Blood Count 2.71 mil/mm3 (4.00-5.30); Red Cell Distribution Width 21.2 % (11.6-17.2); White Blood Count 25.8 th/mm3 (4.0-11.0)
--- NOTE | 2018-08-30 00:19 | XR ---
EXAM DATE: 08/30/2018 11:49 PM EDT AGE/SEX: 73 years / Female INDICATIONS: Shortness of breath. CLINICAL DATA: This is the patient's initial encounter. Patient reports that signs and symptoms have been present for 2 days and indicates a pain score of 0/10. MEDICAL/SURGICAL HISTORY: . Renal disease. Cardiovascular disease. Deep venous thrombosis. . C oronary artery stent. COMPARISON: C, CHEST 1V SINGLE AP, 08/24/2018. . FINDINGS: Stable right subclavian central line. Mild interval enlargement of small left pleural effusion with a ssociated left lower lobe airspace disease. Persistent patchy airspace disease in the right lower carleen g zone. Cardiomediastinal contours are within normal limits. The main of exam is unchanged. CONCLUSION: 1. Worsening small left pleural effusion with associated left lower lung zone airspace disease. 2. Stable patchy right lower lung zone airspace disease. Electronically signed by: Noah Douglass MD 08/30/2018 12:18 AM EDT
[2018-08-30 00:38] LABS: ABG Base Excess 5.4 mmol/L (-2-2); ABG PCO2 48 mmHg (38-42); ABG PO2 132 mmHg (61-120)
[2018-08-30] MEDS: Acetaminophen/Codeine 300/30 MG Tablet PO PRN (01:23)
[2018-08-30 01:30] LABS: Platelet Estimate Normal (Normal); Platelet Morphology Normal (Normal)
[2018-08-30] MEDS: Piperacil/Tazo 2.25 GM Premix 50 ML IV.SIG SCH ×4 (02:40→21:30)
[2018-08-30] MEDS: hydrALAZINE 10 MG Tablet PO SCH ×3 (02:40→18:59)
[2018-08-30] MEDS ORDERED: Acetaminophen 325 MG Tablet PO PRN (04:14)
[2018-08-30] MEDS ORDERED: Sodium Chlor 0.9% Inj 250 ML IV.SIG SCH (05:00)
[2018-08-30] MEDS: amLODIPine 10 MG Tablet PO SCH (10:28)
[2018-08-30] MEDS: Sertraline 50 MG Tablet PO SCH ×2 (10:28→10:35)
[2018-08-30] MEDS: Senna/Docusate Sodium 8.6/50 MG Tablet PO SCH ×2 (10:36→21:30)
[2018-08-30] MEDS: Hydroxychloroquine 200 MG Tablet PO SCH (10:37)
[2018-08-30] MEDS ORDERED: Silver Nitrate/Potassium Nitrate Applicator Sticks TOPICAL ONE (10:45)
[2018-08-30] MEDS: Multivitamin/Minerals Therapeutic Tablet PO SCH (11:13)
--- NOTE | 2018-08-30 11:37 | P.PNVS ---
Subjective Post Op Day #: 2 Procedure: Open RIGHT AKA Subjective/Hospital Course: Pt responsive alert and oriented this am Pain controlled Pt/Daughter reported 1 episode of vomiting this am Pt w/o abdominal pain R AKA dressing changed Pt with mild serosanguinous drainage, no active bleeding Pt was transfused 1 unit of PRBC's last night Am labs pending Objective Vital Signs / I&O: Vital Signs 08/29/18 12:00 08/29/18 13:25 08/29/18 15:32 Temperature 97.9 F Pulse Rate 95 H Respiratory Rate 16 16 16 Blood Pressure 123/79 Pulse Oximetry 100 08/29/18 16:00 08/29/18 16:45 08/29/18 16:46 Temperature 97.9 F 97.9 F 93.6 F L Pulse Rate 92 H 95 H 82 Respiratory Rate 18 16 20 Blood Pressure 80/54 L 123/79 75/46 L Pulse Oximetry 90 L 100 08/29/18 17:15 08/29/18 19:40 08/29/18 20:00 Temperature 93.5 F L 97.3 F L Pulse Rate 86 86 85 Respiratory Rate 20 18 Blood Pressure 77/45 L 106/58 L Pulse Oximetry 93 L 08/29/18 20:15 08/29/18 22:15 08/29/18 23:05 Temperature 97.7 F Pulse Rate 93 H Respiratory Rate 20 Blood Pressure 89/58 L Pulse Oximetry 93 L 100 82 L 08/29/18 23:10 08/29/18 23:15 08/30/18 00:00 Temperature Pulse Rate 89 89 91 H Respiratory Rate 20 20 Blood Pressure 124/61 116/59 L Pulse Oximetry 100 100 08/30/18 01:00 08/30/18 01:22 08/30/18 02:40 Temperature 97.6 F Pulse Rate 92 H Respiratory Rate 18 18 Blood Pressure 106/52 L Pulse Oximetry 97 95 08/30/18 04:00 08/30/18 04:14 08/30/18 05:03 Temperature 97.9 F 98.1 F Pulse Rate 82 81 81 Respiratory Rate 18 18 Blood Pressure 81/46 L 95/50 L Pulse Oximetry 94 L 100 08/30/18 05:16 08/30/18 08:15 08/30/18 08:20 Temperature 98.2 F 98.4 F 98.4 F Pulse Rate 82 87 87 Respiratory Rate 18 16 16 Blood Pressure 89/51 L 123/60 123/60 Pulse Oximetry 100 100 100 08/30/18 10:02 Temperature Pulse Rate Respiratory Rate Blood Pressure Pulse Oximetry 93 L Intake & Output 08/29/18 08/30/18 08/30/18 18:59 06:59 18:59 Intake Total 200 / 200 950 / 950 400 / 400 Output Total 2 / 2 Balance 198 / 198 950 / 950 400 / 400 Weight 35.2 kg Intake: IV 200 / 200 100 / 100 Zosyn 2.25 GM Premix 50 ML @ 100 / 100 100 / 100 100 mls/hr IV.SIG Q6H TY Rx#: [id number] Vancomycin Inj 500 MG In NS Inj 100 / 100 100 ML @ 200 mls/hr IV.SIG ONCE ONE Rx#:[id number] Oral 450 / 450 Intake (Blood Product) Amt 0 / 0 400 / 400 400 / 400 Rbc As-3 Leukoreduced Unit 0 / 0 400 / 400 [id number] Rbc As-3 Leukoreduced Unit 0 / 0 400 / 400 [id number] Rbc As-3 Leukoreduced Unit 0 / 0 [id number] Output: Urine 2 / 2 Other: # Voids 2 Date of Last Bowel Movement 08/29/18 08/30/18 # Bowel Movements 1 # Incontinent Bowel Movements 3 Exam: Warm and dry R AKA incision site w/ a fair amount of serosanguineous drainage (middle of incision), no active bleeding Sutures intact Netta wound w/o skin changes or erythema Laboratory Results - last 24 hr 08/24/18 08/29/18 08/29/18 06:30 11:12 23:11 WBC RBC Hgb Hct MCV MCH MCHC RDW Plt Count MPV Prelim Diff (Auto) Neut % (Auto) Lymph % (Auto) Spink % (Auto) Eos % (Auto) Baso % (Auto) Neut # (Auto) Lymph # (Auto) Spink # (Auto) Eos # (Auto) Baso # (Auto) WBC Differential Diff Scan Differential Comment Platelet Estimate Platelet Morphology Puncture Site Patient Temperature O2 Saturation ABG pH ABG pCO2 ABG pO2 ABG HCO3 ABG O2 Content ABG Base Excess ABG Methemoglobin Hemoglobin Carboxyhemoglobin O2 Delivery Device Liter Flow Critical Value POC Glucose 122 H Blood Type AB Negative Antibody Screen Negative MTS Gel Crossmatch See Detail See Detail 08/29/18 08/30/18 08/30/18 23:50 00:25 04:17 WBC 25.8 H D RBC 2.71 L Hgb 7.4 L Hct 22.1 L MCV 81.7 D MCH 27.3 MCHC 33.4 RDW 21.2 H D Plt Count 251 MPV 7.3 Prelim Diff (Auto) Slide review pending Neut % (Auto) 92.0 H Lymph % (Auto) 3.5 L Spink % (Auto) 4.3 Eos % (Auto) 0.1 Baso % (Auto) 0.1 Neut # (Auto) 23.7 H Lymph # (Auto) 0.9 L Spink # (Auto) 1.1 H Eos # (Auto) 0.0 Baso # (Auto) 0.0 WBC Differential . Diff Scan Auto diff confirmed Differential Comment . Platelet Estimate Normal Platelet Morphology Normal Puncture Site Right brachial Patient Temperature 98.6 O2 Saturation 96 ABG pH 7.41 ABG pCO2 48 H ABG pO2 132 H ABG HCO3 30 H ABG O2 Content 11.1 L ABG Base Excess 5.4 H ABG Methemoglobin 1.3 Hemoglobin 8.1 L Carboxyhemoglobin 2.3 O2 Delivery Device Simple mask Liter Flow 6.00 Critical Value No POC Glucose Blood Type Antibody Screen MTS Gel Crossmatch See Detail Assessment and Plan - Plan POD#2 Pt s/p open R AKA Pt with improved R AKA drainage, No active bleeding Plan AM labs pending Continue dressing changes as ordered- ara wrap R AKA Ceci Baptiste [facility] [phone] Discharge Planning: D/C planning to [facility]
[2018-08-30] MEDS: Metoprolol Tartrate 25 MG Tablet PO SCH (11:55)
--- NOTE | 2018-08-30 11:57 | P.CONWOU ---
History of Present Illness Service: 08/30/18 Consult date: 08/30/18 Reason for Consult: Continued care of right lower extremity ulcer Primary Care Provider: UNKNOWN Family Provider: Malcolm Gay MD Chief Complaint: DIZZINESS History of Present Illness: Patient seen today s/p Right AKA. At the time patient was seen, she was having postsurgical woundcare done by the surgical team. Patient voiced that she was not feeling her best at the time. She has had a bout of hypotension and is currently receiving blood. Her daughter voiced some concerns about her rehab care as she voices that her mother does not want to go to rehab. She also complains that her mother has been having diarrhea- ( she has been helping to clean her) and she is concerned that this may cause skin breakdown. She voices that an air mattress has been ordered and she is awaiting for her mother to be transferred to it. Daughter voices that she is somewhat overwhelmed by this all , however has good family support. She is aware that the wound care team has deferred her wound care to the vascular team( post surgical). Patient voices no other acute concerns. PMFSH - History History Provided By: Patient, Family Member, Medical Record - Medical History Medical History: Medical History (Last Reviewed 08/28/18 @ 09:10 by Marlene Kothari) Anemia Anxiety Chronic kidney disease, stage III (moderate) Coronary artery disease Depression Dysphagia Failure to thrive HBP (high blood pressure) History of colon polyps Hyperlipidemia Lupus Nephrolithiasis Noncompliance Osteoporosis Peripheral vascular disease Peripheral vascular disease of lower extremity with ulceration Personal history of (healed) traumatic fracture Presence of other vascular implants and grafts Protein-calorie malnutrition, severe - Surgical History Surgical History: Surgical History (Last Reviewed 08/28/18 @ 09:10 by Marlene Kothari) H/O cardiac catheterization H/O parathyroidectomy History of amputation of extremity History of colonoscopy History of hip surgery Hx of heart artery stent S/P femoral-popliteal bypass surgery - Family History Family History: Family History (Last Updated 08/20/18 @ 11:22 by Haris Reyes) Mother Heart disease Father Coronary artery disease Cancer - Tobacco History Second Hand Smoke Exposure: No Smoking Status: Former smoker Tobacco Type: Cigarettes, Pipe, Cigars - Alcohol History How Often Do You Have a Drink Containing Alcohol: 4 or more times a week - Substance Use History Substance History: No History of Abuse - Travel History History of Recent Travel: No Recent Travel in the [place] Within the Last 8 Weeks: No Recent Travel Out of the Country Within the Last 8 Weeks: No - Immunization History Tetanus Immunization: >5 Years Hx Influenza Vaccine This Season: No Medications and Allergies Active Medications: Active Medications Acetaminophen (Tylenol) 650 mg PO Q4H PRN PRN Reason: Temp > 100.4 Acetaminophen (Tylenol) 650 mg PO Q4H PRN PRN Reason: SEE LABEL COMMENTS Last Admin: 08/30/18 08:12 Dose: 650 mg Acetaminophen (Tylenol) 650 mg PO Q4H PRN PRN Reason: SEE LABEL COMMENTS Acetaminophen/Codeine Phosphate (Tylenol W/Cod #3) 1 tab PO Q4HR PRN PRN Reason: PAIN SCALE 1 TO 10 Last Admin: 08/30/18 01:23 Dose: 1 tab Al Hydroxide/Mg Hydroxide (Milk Of Alisa Hall) 30 ml PO Q12H PRN PRN Reason: Mild Constipation Albuterol (Duoneb Neb (Prn)) 1 ampul NEB Q2HR NEB PRN PRN Reason: sob Amlodipine Besylate (Norvasc) 10 mg PO DAILY COUNT INCLUDES THE [facility] Last Admin: 08/30/18 10:28 Dose: Not Given Apixaban (Eliquis) 5 mg PO BID COUNT INCLUDES THE [facility] Last Admin: 08/21/18 09:07 Dose: 5 mg Bisacodyl (Dulcolax Supp) 10 mg RECTAL DAILY PRN PRN Reason: SEVERE CONSITIPATION Clopidogrel Bisulfate (Plavix) 75 mg PO DAILY COUNT INCLUDES THE [facility] Last Admin: 08/21/18 09:06 Dose: Not Given Diphenhydramine HCl (Benadryl) 25 mg PO Q4H PRN PRN Reason: SEE LABEL COMMENTS Diphenhydramine HCl (Benadryl) 25 mg PO Q4H PRN PRN Reason: SEE LABEL COMMENTS Furosemide (Lasix Inj) 20 mg IV.PUSH BID@0900,1800 COUNT INCLUDES THE [facility] Last Admin: 08/29/18 18:15 Dose: Not Given Hydralazine HCl (Apresoline) 10 mg PO Q8H COUNT INCLUDES THE [facility] Last Admin: 08/30/18 02:40 Dose: Not Given Hydroxychloroquine Sulfate (Plaquenil) 200 mg PO DAILY COUNT INCLUDES THE [facility] Last Admin: 08/30/18 10:37 Dose: 200 mg Piperacillin/Tazobactam/Dextrose (Zosyn 2.25 Gm Premix) 50 mls @ 100 mls/hr IV.SIG Q6H COUNT INCLUDES THE [facility] Last Admin: 08/30/18 11:12 Dose: 100 mls/hr Sodium Chloride (Ns Inj) 250 mls @ 15 mls/hr IV.SIG ONCE COUNT INCLUDES THE [facility] Stop: 08/30/18 21:39 Last Admin: 08/30/18 05:00 Dose: 15 mls/hr Lactulose (Lactulose Liq) 30 ml PO DAILY PRN PRN Reason: SEVERE CONSITIPATION Lanthanum Carbonate (Fosrenol Chewable) 500 mg PO TID COUNT INCLUDES THE [facility] Last Admin: 08/30/18 10:27 Dose: Not Given Meclizine HCl (Antivert) 25 mg PO Q6H PRN PRN Reason: NAUSEA OR DIZZINESS Last Admin: 08/17/18 08:07 Dose: 25 mg Metoprolol Tartrate (Lopressor) 25 mg PO Q12H COUNT INCLUDES THE [facility] Last Admin: 08/29/18 23:24 Dose: Not Given Mirtazapine (Remeron) 30 mg PO HS COUNT INCLUDES THE [facility] Last Admin: 08/29/18 20:23 Dose: 30 mg Morphine Sulfate (Morphine Inj) 2 mg IV.PUSH Q4H PRN PRN Reason: dressing changes Last Admin: 08/29/18 13:23 Dose: 2 mg Multivitamins/Minerals (Theragran-M) 1 tab PO DAILY COUNT INCLUDES THE [facility] Last Admin: 08/30/18 11:13 Dose: Not Given Naloxone HCl (Narcan Inj) 0.4 mg IV.PUSH UNSCH PRN PRN Reason: SEE LABEL COMMENTS Ondansetron HCl (Zofran Inj) 4 mg IV.PUSH TIDAC COUNT INCLUDES THE [facility] Last Admin: 08/30/18 10:26 Dose: 4 mg Oxycodone/Acetaminophen (Percocet 5/325 Mg) 1 tab PO Q4H PRN PRN Reason: BREAKTHROUGH PAIN Last Admin: 08/29/18 02:39 Dose: 1 tab Pharmacy Profile Note (Vancomycin Consult Pharmacy) 1 each OTHER UNSCH PRN PRN Reason: Pharmacy to dose Last Admin: 08/23/18 09:33 Dose: 1 each Senna/Docusate Sodium (Netta-Colace) 1 tab PO BID COUNT INCLUDES THE [facility] Last Admin: 08/30/18 10:36 Dose: Not Given Sennosides (Senokot) 17.2 mg PO Q12H PRN PRN Reason: Moderate Constipation Sertraline HCl (Zoloft) 50 mg PO DAILY COUNT INCLUDES THE [facility] Last Admin: 08/30/18 10:35 Dose: 50 mg Sodium Chloride (Ns Flush) 2 ml IV.FLUSH BID COUNT INCLUDES THE [facility] Last Admin: 08/30/18 10:37 Dose: 2 ml Sodium Chloride (Ns Flush) 2 ml IV.FLUSH PRN PRN PRN Reason: FLUSH AFTER USING IV ACCESS Zolpidem Tartrate (Ambien) 5 mg PO HS PRN PRN Reason: INSOMNIA Allergies Allergy/AdvReac Type Severity Reaction Status Date / Time cephalexin Allergy Severe rash Verified 08/13/18 06:34 diatrizoate meglumine Allergy Severe rash Verified 08/13/18 06:34 fluconazole Allergy Severe rash Verified 08/13/18 06:34 gadobenic acid Allergy Severe rash Verified 08/13/18 06:34 gadodiamide Allergy Severe rash Verified 08/13/18 06:34 gadoteridol Allergy Severe rash Verified 08/13/18 06:34 iodixanol Allergy Severe rash Verified 08/13/18 06:34 iohexol Allergy Severe rash Verified 08/13/18 06:34 pravastatin Allergy Severe rash Verified 08/13/18 06:34 erythromycin base AdvReac Urinary Verified 08/13/18 06:34 Freq (Inc/Dec) Home Medications Medication Instructions Recorded Confirmed Type acetaminophen-codeine 1 tab PO Q4HR PRN 05/26/18 08/13/18 History amlodipine 5 mg PO DAILY 05/26/18 08/13/18 History apixaban 5 mg PO BID 05/26/18 08/13/18 History clopidogrel 75 mg PO DAILY 05/26/18 08/13/18 History furosemide 20 mg PO Q2D 05/26/18 08/13/18 History hydralazine 10 mg PO Q8H 05/26/18 08/13/18 History hydrocodone-acetaminophen 1 tab PO Q4H PRN 05/26/18 08/13/18 History hydroxychloroquine 200 mg PO DAILY 05/26/18 08/13/18 History lanthanum 500 mg PO TID 05/26/18 08/13/18 History metoprolol tartrate 25 mg PO Q12H 05/26/18 08/13/18 History mirtazapine 30 mg PO HS 05/26/18 08/13/18 History sertraline 50 mg PO DAILY 05/26/18 08/13/18 History Physical Exam Vital signs: Vital Signs 08/29/18 12:00 08/29/18 13:25 08/29/18 15:32 Temperature 97.9 F Pulse Rate 95 H Respiratory Rate 16 16 16 Blood Pressure 123/79 Pulse Oximetry 100 08/29/18 16:00 08/29/18 16:45 08/29/18 16:46 Temperature 97.9 F 97.9 F 93.6 F L Pulse Rate 92 H 95 H 82 Respiratory Rate 18 16 20 Blood Pressure 80/54 L 123/79 75/46 L Pulse Oximetry 90 L 100 08/29/18 17:15 08/29/18 19:40 08/29/18 20:00 Temperature 93.5 F L 97.3 F L Pulse Rate 86 86 85 Respiratory Rate 20 18 Blood Pressure 77/45 L 106/58 L Pulse Oximetry 93 L 08/29/18 20:15 08/29/18 22:15 08/29/18 23:05 Temperature 97.7 F Pulse Rate 93 H Respiratory Rate 20 Blood Pressure 89/58 L Pulse Oximetry 93 L 100 82 L 08/29/18 23:10 08/29/18 23:15 08/30/18 00:00 Temperature Pulse Rate 89 89 91 H Respiratory Rate 20 20 Blood Pressure 124/61 116/59 L Pulse Oximetry 100 100 08/30/18 01:00 08/30/18 01:22 08/30/18 02:40 Temperature 97.6 F Pulse Rate 92 H Respiratory Rate 18 18 Blood Pressure 106/52 L Pulse Oximetry 97 95 08/30/18 04:00 08/30/18 04:14 08/30/18 05:03 Temperature 97.9 F 98.1 F Pulse Rate 82 81 81 Respiratory Rate 18 18 Blood Pressure 81/46 L 95/50 L Pulse Oximetry 94 L 100 08/30/18 05:16 08/30/18 08:15 08/30/18 08:20 Temperature 98.2 F 98.4 F 98.4 F Pulse Rate 82 87 87 Respiratory Rate 18 16 16 Blood Pressure 89/51 L 123/60 123/60 Pulse Oximetry 100 100 100 08/30/18 10:02 Temperature Pulse Rate Respiratory Rate Blood Pressure Pulse Oximetry 93 L Intake & Output 08/29/18 08/30/18 08/30/18 18:59 06:59 18:59 Intake Total 200 / 200 950 / 950 400 / 400 Output Total 2 / 2 Balance 198 / 198 950 / 950 400 / 400 Weight 35.2 kg Intake: IV 200 / 200 100 / 100 Zosyn 2.25 GM Premix 50 ML @ 100 / 100 100 / 100 100 mls/hr IV.SIG Q6H TY Rx#: [id number] Vancomycin Inj 500 MG In NS Inj 100 / 100 100 ML @ 200 mls/hr IV.SIG ONCE ONE Rx#:[id number] Oral 450 / 450 Intake (Blood Product) Amt 0 / 0 400 / 400 400 / 400 Rbc As-3 Leukoreduced Unit 0 / 0 400 / 400 [id number] Rbc As-3 Leukoreduced Unit 0 / 0 400 / 400 [id number] Rbc As-3 Leukoreduced Unit 0 / 0 [id number] Output: Urine 2 / 2 Other: # Voids 2 Date of Last Bowel Movement 08/29/18 08/30/18 # Bowel Movements 1 # Incontinent Bowel Movements 3 Assessment and Plan - Assessment (1) Ulcer of heel Code(s): L97.409 - Non-pressure chronic ulcer of unspecified heel and midfoot with unspecified severity Status: Acute Plan: Patient s/p Right AKA and so now under the care of vascular surgery for post surgical care. At the time of my visit she was having wound care being done by PA for vascular surgery. (2) Pressure ulcer, hip Code(s): L89.209 - Pressure ulcer of unspecified hip, unspecified stage Status : Acute Plan: Stable. Will continue current wound care recommendations. (3) Dehydration Code(s): E86.0 - Dehydration Status: Acute Plan: Resolving. (4) Severe peripheral arterial disease Code(s): I73.9 - Peripheral vascular disease, unspecified Status: Acute (5) Diarrhea Code(s): R19.7 - Diarrhea, unspecified Status: Acute Plan: Recommended rectal tube placement. Spoke to Juliette Charge nurse for the floor and she will relay recommendation to the attending physician. The constant diarrhea may precipitate skin breakdown of the buttocks and sacrum and this device would be a preventative measure. This was also discussed with patient's daughter and she voiced gratitude and understanding. (6) Caregiver burden Code(s): Z63.6 - Dependent relative needing care at home Status: Chronic Plan: Spoke with daughter about her stressors as she voiced being overwhelmed. She and her sister as well as mother want to go home instead of rehab. Both she and her sister plan to help with her care and they anticipate Home Health. Patient' s daughter was counselled , her concerns addressed and she voiced thanks and understanding. At this time I will be signing off and may be reconsulted as needed. - Plan Patient s/p right AKA. Under the care of vascular surgeon. PA currently doing wound care.
--- NOTE | 2018-08-30 12:34 | P.PN ---
Subjective Interval history: awake alert, no complains feisty Physical Exam Vital signs: Vital Signs 08/29/18 13:25 08/29/18 15:32 08/29/18 16:00 Temperature 97.9 F Pulse Rate 92 H Respiratory Rate 16 16 18 Blood Pressure 80/54 L Pulse Oximetry 90 L 08/29/18 16:45 08/29/18 16:46 08/29/18 17:15 Temperature 97.9 F 93.6 F L 93.5 F L Pulse Rate 95 H 82 86 Respiratory Rate 16 20 20 Blood Pressure 123/79 75/46 L 77/45 L Pulse Oximetry 100 08/29/18 19:40 08/29/18 20:00 08/29/18 20:15 Temperature 97.3 F L Pulse Rate 86 85 Respiratory Rate 18 Blood Pressure 106/58 L Pulse Oximetry 93 L 93 L 08/29/18 22:15 08/29/18 23:05 08/29/18 23:10 Temperature 97.7 F Pulse Rate 93 H 89 Respiratory Rate 20 20 Blood Pressure 89/58 L 124/61 Pulse Oximetry 100 82 L 100 08/29/18 23:15 08/30/18 00:00 08/30/18 01:00 Temperature Pulse Rate 89 91 H Respiratory Rate 20 Blood Pressure 116/59 L Pulse Oximetry 100 97 08/30/18 01:22 08/30/18 02:40 08/30/18 04:00 Temperature 97.6 F 97.9 F Pulse Rate 92 H 82 Respiratory Rate 18 18 18 Blood Pressure 106/52 L 81/46 L Pulse Oximetry 95 94 L 08/30/18 04:14 08/30/18 05:03 08/30/18 05:16 Temperature 98.1 F 98.2 F Pulse Rate 81 81 82 Respiratory Rate 18 18 Blood Pressure 95/50 L 89/51 L Pulse Oximetry 100 100 08/30/18 08:15 08/30/18 08:20 08/30/18 10:02 Temperature 98.4 F 98.4 F Pulse Rate 87 87 Respiratory Rate 16 16 Blood Pressure 123/60 123/60 Pulse Oximetry 100 100 93 L 08/30/18 11:40 Temperature 97.3 F L Pulse Rate 87 Respiratory Rate 16 Blood Pressure 102/59 L Pulse Oximetry 87 L Intake & Output 08/29/18 08/30/18 08/30/18 18:59 06:59 18:59 Intake Total 200 / 200 950 / 950 850 / 850 Output Total 2 / 2 Balance 198 / 198 950 / 950 850 / 850 Weight 35.2 kg Intake: IV 200 / 200 100 / 100 50 / 50 Zosyn 2.25 GM Premix 50 ML @ 100 / 100 100 / 100 50 / 50 100 mls/hr IV.SIG Q6H TY Rx#: [id number] Vancomycin Inj 500 MG In NS Inj 100 / 100 100 ML @ 200 mls/hr IV.SIG ONCE ONE Rx#:[id number] Oral 450 / 450 Intake (Blood Product) Amt 0 / 0 400 / 400 800 / 800 Rbc As-3 Leukoreduced Unit 0 / 0 400 / 400 [id number] Rbc As-3 Leukoreduced Unit 0 / 0 400 / 400 [id number] Rbc As-3 Leukoreduced Unit 400 / 400 [id number] Output: Urine 2 / 2 Other: # Voids 2 Date of Last Bowel Movement 08/29/18 08/30/18 # Bowel Movements 1 # Incontinent Bowel Movements 3 Narrative: NAD SKIN: Warm and dry. HEAD: Atraumatic. Normocephalic. EYES: Pupils equal and round. No scleral icterus. No injection or drainage. ENT: no nasal bleeding Mucous membranes pink and moist. NECK: no nuchal rigidity CARDIOVASCULAR: Regular rate and rhythm. S1-S2 no S3 or S4. RESPIRATORY: No accessory muscle use. Clear to auscultation. Breath sounds equal bilaterally. GASTROINTESTINAL: Abdomen soft, non-tender, nondistended. Hepatic and splenic margins not palpable. MUSCULOSKELETAL: Extremities without clubbing, cyanosis, or edema. No obvious deformities. Left [id number] amputation- good stump right AKA- post op dressing soaked with blood NEUROLOGICAL: Awake and alert. No obvious cranial nerve deficits. Motor grossly within normal limits. 4 out of 5 muscle strength in the arms . Normal speech. Results - Labs CBC & Chem 7: 08/31/18 05:45 08/30/18 13:05 Laboratory Results - last 24 hr 08/24/18 08/29/18 08/29/18 06:30 11:12 23:11 WBC RBC Hgb Hct MCV MCH MCHC RDW Plt Count MPV Prelim Diff (Auto) Neut % (Auto) Lymph % (Auto) [place] % (Auto) Eos % (Auto) Baso % (Auto) Neut # (Auto) Lymph # (Auto) [place] # (Auto) Eos # (Auto) Baso # (Auto) WBC Differential Diff Scan Differential Comment Platelet Estimate Platelet Morphology Puncture Site Patient Temperature O2 Saturation ABG pH ABG pCO2 ABG pO2 ABG HCO3 ABG O2 Content ABG Base Excess ABG Methemoglobin Hemoglobin Carboxyhemoglobin O2 Delivery Device Liter Flow Critical Value POC Glucose 122 H Blood Type AB Negative Antibody Screen Negative MTS Gel Crossmatch See Detail See Detail 08/29/18 08/30/18 08/30/18 23:50 00:25 04:17 WBC 25.8 H D RBC 2.71 L Hgb 7.4 L Hct 22.1 L MCV 81.7 D MCH 27.3 MCHC 33.4 RDW 21.2 H D Plt Count 251 MPV 7.3 Prelim Diff (Auto) Slide review pending Neut % (Auto) 92.0 H Lymph % (Auto) 3.5 L [place] % (Auto) 4.3 Eos % (Auto) 0.1 Baso % (Auto) 0.1 Neut # (Auto) 23.7 H Lymph # (Auto) 0.9 L [place] # (Auto) 1.1 H Eos # (Auto) 0.0 Baso # (Auto) 0.0 WBC Differential . Diff Scan Auto diff confirmed Differential Comment . Platelet Estimate Normal Platelet Morphology Normal Puncture Site Right brachial Patient Temperature 98.6 O2 Saturation 96 ABG pH 7.41 ABG pCO2 48 H ABG pO2 132 H ABG HCO3 30 H ABG O2 Content 11.1 L ABG Base Excess 5.4 H ABG Methemoglobin 1.3 Hemoglobin 8.1 L Carboxyhemoglobin 2.3 O2 Delivery Device Simple mask Liter Flow 6.00 Critical Value No POC Glucose Blood Type Antibody Screen MTS Gel Crossmatch See Detail - Imaging Impressions Chest X-Ray 08/29/18 23:49 CONCLUSION: 1. Worsening small left pleural effusion with associated left lower lung zone airspace disease. 2. Stable patchy right lower lung zone airspace disease. - Procedures Right AKA August 28, 2018 Assessment and Plan - Assessment (1) RADHA (acute kidney injury) Code(s): N17.9 - Acute kidney failure, unspecified Status: Acute (2) Acute UTI Code(s): N39.0 - Urinary tract infection, site not specified Status: Acute (3) Dehydration Code(s): E86.0 - Dehydration Status: Acute (4) Pressure ulcer, hip Code(s): L89.209 - Pressure ulcer of unspecified hip, unspecified stage Status : Acute (5) Severe peripheral arterial disease Code(s): I73.9 - Peripheral vascular disease, unspecified Status: Acute (6) Ulcer of heel Code(s): L97.409 - Non-pressure chronic ulcer of unspecified heel and midfoot with unspecified severity Status: Acute - Plan 73-year-old female with Peripheral vascular disease MRSA wound infection Right leg gangrene Patient has a history of left AKA. -s/p Right AKA 08/28/18, management per vascular surgery -palliative care ff -Appreciate input from ID and continue vancomycin IV -NM WBC scan negative Renal insufficiency/stage III chronic kidney disease/dehydration -follow BMP as needed and avoid nephrotoxins. Hypocalcemia/Hypomagnesemia/Hypokalemia/Hyponatremia -Improved. Failure to thrive/protein calorie malnourishment severe S/t gastroparesis. -continue on mirtazapine Coronary artery disease -restart Plavix + ASA in am Tobacco abuse -recommend smoking cessation. Acute blood loss from Surgery- stump dressing soaked with blood -Transfuse 1 unit packed red blood cell August 29, 2018 -S/P 2 units August 24, 2018 get a stat CBC now - H and H good - seen with Vascular surgery at bedside- stump sprayed with thrombin spray to control bleeding - continue to monitor Hypoglycemia -encourage nutrition. History of CAD Benign labile hypertension -Currently on Lopressor 50 mg p.o. twice daily . - on Plavix + Elqiusi as OP - if H and H stable- restart Plavix + asa in am PPx: Apixaban resume PT- reconsult post right AKA
[2018-08-30 13:45] LABS: Baso # (Auto) 0.1 th/mm3 (0.0-0.2); Baso % (Auto) 0.5 % (0.0-2.0); Eos # (Auto) 0.1 th/mm3 (0.0-0.4); Eos % (Auto) 0.5 % (0.0-4.0); Hematocrit 33.1 % (35.0-46.0); Hemoglobin 11.8 gm/dL (11.6-15.3); Lymph # (Auto) 1.2 th/mm3 (1.0-4.8); Lymph % (Auto) 5.1 % (9.0-44.0); Mean Corpuscular HGB Conc 35.6 % (32.0-36.0); Mean Corpuscular Hemoglobin 29.5 pg (27.0-34.0); Mean Corpuscular Volume 83.1 fL (80.0-100.0); Mean Platelet Volume 7.9 fL (7.0-11.0); Mono # (Auto) 1.7 th/mm3 (0.0-0.9); Neut % (Auto) 86.9 % (16.0-70.0); Platelet Count 232 th/mm3 (150-450); Red Blood Count 3.98 mil/mm3 (4.00-5.30); Red Cell Distribution Width 16.4 % (11.6-17.2); White Blood Count 24.2 th/mm3 (4.0-11.0)
[2018-08-30 14:14] LABS: Albumin 1.5 g/dL (3.4-5.0); Calcium 7.4 mg/dL (8.5-10.1); Potassium 4.5 meq/L (3.5-5.1); Total Protein 4.3 g/dL (6.4-8.2)
[2018-08-30] MEDS ORDERED: Thrombin Topical 20,000 UNIT Spray Kit TOPICAL ONE (14:40)
[2018-08-30] MEDS: Morphine Inj 4 MG/ML Vial IV.PUSH PRN ×2 (15:07→16:47)
--- NOTE | 2018-08-30 15:07 | P.PNPAL ---
Reason for Visit Reason for visit: a. To assist with evaluation and management of symptoms including: Pain, decreased oral intake, debility b. To assist medical decision maker(s) with: better understanding of current medical conditions; weighing benefits/burdens of medical treatment options; making medical treatment decisions. Subjective Subjective/Interval History: Follow-up medically necessary for symptom management. Patient seen and examined in her room in the presence of her daughter Zo. She is in bed, awake, alert, oriented to self, place and situation. Patient complaining of constant pain to right stump. Patient's bulk dressing to right stump saturated with sanguinous drainage. Patient eating lunch, endorsing improved appetite. Patient became slightly hypotensive and unresponsive yesterday. SBP was in the low 80s. Hemoglobin was as low as 7.4. Vascular surgeon reassessed patient last night 08/29/18 and reapplied compression dressing to right stump. Patient received a total of 3 units PRBC, 1 unit on 08/29/18 and 2 units on 08/30/18. Laboratory workup today revealed (09/09/18) WBC 24.2, hemoglobin 11.8, hematocrit 33.1, platelet count 232, BUN/creatinine 63/2.7 on, total protein 4.3 , albumin 1.5. Briefly discussed with patient`s daughter about patient`s trajectory of decline and goals remain aggressive. Case discussed with bedside RN and Dr. Muñoz. Family/Friend Interactions: Family and patient still want aggressive treatment. . Advance Directives Living Will: Never completed Health Care Surrogate: Copy in medical record Durable Power of Steel Tester: Never completed Advance Directives Date on File: 05/22/18 Health Care Surrogate Name and Number: [facility]: Suyapa Goncalves [phone] Alt: Bola Pathak- [phone] Objective Vital Signs: Vital Signs 08/29/18 15:32 08/29/18 16:00 08/29/18 16:45 Temperature 97.9 F 97.9 F Pulse Rate 92 H 95 H Respiratory Rate 16 18 16 Blood Pressure 80/54 L 123/79 Pulse Oximetry 90 L 100 08/29/18 16:46 08/29/18 17:15 08/29/18 19:40 Temperature 93.6 F L 93.5 F L 97.3 F L Pulse Rate 82 86 86 Respiratory Rate 20 20 18 Blood Pressure 75/46 L 77/45 L 106/58 L Pulse Oximetry 93 L 08/29/18 20:00 08/29/18 20:15 08/29/18 22:15 Temperature Pulse Rate 85 Respiratory Rate Blood Pressure Pulse Oximetry 93 L 100 08/29/18 23:05 08/29/18 23:10 08/29/18 23:15 Temperature 97.7 F Pulse Rate 93 H 89 89 Respiratory Rate 20 20 20 Blood Pressure 89/58 L 124/61 116/59 L Pulse Oximetry 82 L 100 100 08/30/18 00:00 08/30/18 01:00 08/30/18 01:22 Temperature 97.6 F Pulse Rate 91 H 92 H Respiratory Rate 18 Blood Pressure 106/52 L Pulse Oximetry 97 95 08/30/18 02:40 08/30/18 04:00 08/30/18 04:14 Temperature 97.9 F Pulse Rate 82 81 Respiratory Rate 18 18 Blood Pressure 81/46 L Pulse Oximetry 94 L 08/30/18 05:03 08/30/18 05:16 08/30/18 08:00 Temperature 98.1 F 98.2 F 98.4 F Pulse Rate 81 82 88 Respiratory Rate 18 18 16 Blood Pressure 95/50 L 89/51 L 123/60 Pulse Oximetry 100 100 100 08/30/18 08:15 08/30/18 08:20 08/30/18 10:02 Temperature 98.4 F 98.4 F Pulse Rate 87 87 Respiratory Rate 16 16 Blood Pressure 123/60 123/60 Pulse Oximetry 100 100 93 L 08/30/18 11:40 08/30/18 12:00 Temperature 97.3 F L 97.8 F Pulse Rate 87 88 Respiratory Rate 16 16 Blood Pressure 102/59 L 111/66 Pulse Oximetry 87 L 99 Intake & Output 08/29/18 08/30/18 08/30/18 18:59 06:59 18:59 Intake Total 200 / 200 950 / 950 850 / 850 Output Total 2 / 2 Balance 198 / 198 950 / 950 850 / 850 Weight 35.2 kg Intake: IV 200 / 200 100 / 100 50 / 50 Zosyn 2.25 GM Premix 50 ML @ 100 / 100 100 / 100 50 / 50 100 mls/hr IV.SIG Q6H [facility] Rx#: [id number] Vancomycin Inj 500 MG In NS Inj 100 / 100 100 ML @ 200 mls/hr IV.SIG ONCE ONE Rx#:[id number] Oral 450 / 450 Intake (Blood Product) Amt 0 / 0 400 / 400 800 / 800 Rbc As-3 Leukoreduced Unit 0 / 0 400 / 400 [id number] Rbc As-3 Leukoreduced Unit 0 / 0 400 / 400 [id number] Rbc As-3 Leukoreduced Unit 400 / 400 [id number] Output: Urine 2 / 2 Other: # Voids 2 Date of Last Bowel Movement 08/29/18 08/30/18 # Bowel Movements 1 # Incontinent Bowel Movements 3 Physical Exam: CONSTITUTIONAL/GENERAL: This is an elderly, chronically ill, cachectic patient with obvious muscle wasting, and bony prominences, in no acute distress. TUBES/LINES/DRAINS: PIV, right subclavian Reynolds catheter SKIN: No jaundice, rashes, or lesions. Pale. Ecchymoses on upper extremities. Wounds to right hip. EYES: PERRLA. Fundi not examined. ENT: Hearing grossly normal. Moist oral mucosa. No nasal drainage CARDIOVASCULAR: S1, S2 normal, no gallops, or rubs. No JVD. Peripheral pulses symmetric. RESPIRATORY/CHEST: Symmetric, unlabored respirations. Clear lung sounds, no wheezes, rales, or rhonchi. GASTROINTESTINAL: Abdomen soft, non-tender, nondistended. No guarding. Bowel sounds present. MUSCULOSKELETAL: Extremities without clubbing. Left AKA. s/p right AKA 08/28/18 dressing to right stump saturated with serosanguineous drainage. NEUROLOGICAL: Awake, oriented to self, place and situation. Moves all extremities. PSYCHIATRIC: No obvious hallucinations. Calm Diagnostic Tests Laboratory: Laboratory Results - last 72 hr 08/24/18 08/27/18 08/27/18 06:30 14:52 14:52 WBC 13.8 H RBC 4.52 Hgb 13.4 Hct 41.7 MCV 92.2 D MCH 29.7 MCHC 32.2 RDW 18.0 H Plt Count 366 MPV 7.1 Prelim Diff (Auto) Neut % (Auto) 85.9 H Lymph % (Auto) 5.3 L [place] % (Auto) 4.8 Eos % (Auto) 3.0 Baso % (Auto) 1.0 Neut # (Auto) 11.8 H Lymph # (Auto) 0.7 L [place] # (Auto) 0.7 Eos # (Auto) 0.4 Baso # (Auto) 0.1 WBC Differential . Diff Scan Differential Comment Auto diff final Platelet Estimate Platelet Morphology Puncture Site Patient Temperature O2 Saturation ABG pH ABG pCO2 ABG pO2 ABG HCO3 ABG O2 Content ABG Base Excess ABG Methemoglobin Hemoglobin Carboxyhemoglobin O2 Delivery Device Liter Flow Critical Value Sodium 143 Potassium 3.7 Chloride 101 Carbon Dioxide 32.3 H Anion Gap 10 BUN 46 H Creatinine 2.24 H Estimated GFR 21 L POC Glucose Random Glucose 106 Calcium 8.0 L Prot Corrected Calcium Total Bilirubin AST ALT Alkaline Phosphatase Total Protein Albumin Random Vancomycin Blood Type Antibody Screen MTS Gel Crossmatch See Detail 08/28/18 08/29/18 08/29/18 05:35 00:50 06:05 WBC 14.6 H RBC 2.89 L Hgb 8.4 L D Hct 26.3 L MCV 91.0 MCH 29.3 MCHC 32.2 RDW 17.5 H Plt Count 298 MPV 6.8 L Prelim Diff (Auto) Neut % (Auto) 80.9 H Lymph % (Auto) 8.7 L [place] % (Auto) 6.8 Eos % (Auto) 2.6 Baso % (Auto) 1.0 Neut # (Auto) 11.8 H Lymph # (Auto) 1.3 [place] # (Auto) 1.0 H Eos # (Auto) 0.4 Baso # (Auto) 0.1 WBC Differential . Diff Scan Differential Comment Auto diff final Platelet Estimate Platelet Morphology Puncture Site Patient Temperature O2 Saturation ABG pH ABG pCO2 ABG pO2 ABG HCO3 ABG O2 Content ABG Base Excess ABG Methemoglobin Hemoglobin Carboxyhemoglobin O2 Delivery Device Liter Flow Critical Value Sodium Potassium Chloride Carbon Dioxide Anion Gap BUN 50 H Creatinine 2.22 H Estimated GFR 22 L POC Glucose Random Glucose Calcium Prot Corrected Calcium Total Bilirubin AST ALT Alkaline Phosphatase Total Protein Albumin Random Vancomycin 17.9 Blood Type Antibody Screen MTS Gel Crossmatch 08/29/18 08/29/18 08/29/18 06:05 11:12 23:11 WBC 15.9 H RBC 2.57 L Hgb 7.6 L Hct 23.5 L MCV 91.1 MCH 29.7 MCHC 32.6 RDW 17.2 Plt Count 290 MPV 6.9 L Prelim Diff (Auto) Neut % (Auto) 82.6 H Lymph % (Auto) 7.3 L [place] % (Auto) 5.8 Eos % (Auto) 3.4 Baso % (Auto) 0.9 Neut # (Auto) 13.1 H Lymph # (Auto) 1.2 [place] # (Auto) 0.9 Eos # (Auto) 0.5 H Baso # (Auto) 0.1 WBC Differential . Diff Scan Differential Comment Auto diff final Platelet Estimate Platelet Morphology Puncture Site Patient Temperature O2 Saturation ABG pH ABG pCO2 ABG pO2 ABG HCO3 ABG O2 Content ABG Base Excess ABG Methemoglobin Hemoglobin Carboxyhemoglobin O2 Delivery Device Liter Flow Critical Value Sodium Potassium Chloride Carbon Dioxide Anion Gap BUN Creatinine Estimated GFR POC Glucose 122 H Random Glucose Calcium Prot Corrected Calcium Total Bilirubin AST ALT Alkaline Phosphatase Total Protein Albumin Random Vancomycin Blood Type AB Negative Antibody Screen Negative MTS Gel Crossmatch See Detail 08/29/18 08/30/18 08/30/18 23:50 00:25 04:17 WBC 25.8 H D RBC 2.71 L Hgb 7.4 L Hct 22.1 L MCV 81.7 D MCH 27.3 MCHC 33.4 RDW 21.2 H D Plt Count 251 MPV 7.3 Prelim Diff (Auto) Slide review pending Neut % (Auto) 92.0 H Lymph % (Auto) 3.5 L [place] % (Auto) 4.3 Eos % (Auto) 0.1 Baso % (Auto) 0.1 Neut # (Auto) 23.7 H Lymph # (Auto) 0.9 L [place] # (Auto) 1.1 H Eos # (Auto) 0.0 Baso # (Auto) 0.0 WBC Differential . Diff Scan Auto diff confirmed Differential Comment . Platelet Estimate Normal Platelet Morphology Normal Puncture Site Right brachial Patient Temperature 98.6 O2 Saturation 96 ABG pH 7.41 ABG pCO2 48 H ABG pO2 132 H ABG HCO3 30 H ABG O2 Content 11.1 L ABG Base Excess 5.4 H ABG Methemoglobin 1.3 Hemoglobin 8.1 L Carboxyhemoglobin 2.3 O2 Delivery Device Simple mask Liter Flow 6.00 Critical Value No Sodium Potassium Chloride Carbon Dioxide Anion Gap BUN Creatinine Estimated GFR POC Glucose Random Glucose Calcium Prot Corrected Calcium Total Bilirubin AST ALT Alkaline Phosphatase Total Protein Albumin Random Vancomycin Blood Type Antibody Screen MTS Gel Crossmatch See Detail 08/30/18 08/30/18 13:05 13:05 WBC 24.2 H RBC 3.98 L Hgb 11.8 D Hct 33.1 L MCV 83.1 MCH 29.5 MCHC 35.6 RDW 16.4 D Plt Count 232 MPV 7.9 Prelim Diff (Auto) Neut % (Auto) 86.9 H Lymph % (Auto) 5.1 L [place] % (Auto) 7.0 Eos % (Auto) 0.5 Baso % (Auto) 0.5 Neut # (Auto) 21.0 H Lymph # (Auto) 1.2 [place] # (Auto) 1.7 H Eos # (Auto) 0.1 Baso # (Auto) 0.1 WBC Differential . Diff Scan Differential Comment Auto diff final Platelet Estimate Platelet Morphology Puncture Site Patient Temperature O2 Saturation ABG pH ABG pCO2 ABG pO2 ABG HCO3 ABG O2 Content ABG Base Excess ABG Methemoglobin Hemoglobin Carboxyhemoglobin O2 Delivery Device Liter Flow Critical Value Sodium 141 Potassium 4.5 Chloride 99 Carbon Dioxide 32.0 Anion Gap 10 BUN 63 H Creatinine 2.71 H Estimated GFR 17 L POC Glucose Random Glucose 99 Calcium 7.4 L* Prot Corrected Calcium 9.0 Total Bilirubin 0.7 AST 71 H ALT 22 Alkaline Phosphatase 80 Total Protein 4.3 L D Albumin 1.5 L Random Vancomycin Blood Type Antibody Screen MTS Gel Crossmatch Result Diagrams: 08/31/18 05:45 08/31/18 08:09 Imaging: Hip CT 08/15/18 00:00 CONCLUSION: 1. Previous internal fixation. 2. No definite evidence for osteomyelitis. 3. Old fractures in the pelvis bilaterally. Femur MRI 08/21/18 07:00 CONCLUSION: 1. There is some thickening and induration of the subcutaneous soft tissues along the posterior aspect of the upper right thigh. 2. No definite loculated fluid collections are demonstrated to suggest a drainable abscess. Reynolds Line Insertion 08/23/18 00:00 CONCLUSION: 1. Uncomplicated Reynolds catheter placement as above. WBC Scan Nuclear Medicine 08/23/18 00:00 CONCLUSION: No focal area of abnormal activity is identified. Abdomen/Pelvis CT 08/24/18 00:00 CONCLUSION: 1. Severe anasarca. Small to moderate bilateral pleural effusions. Trace free fluid in the abdomen. 2. Diffuse mild ileus. 3. Atrophic kidneys with numerous vascular calcifications. Multiple gallstones. Inferior vena cava filter present. Trace pericardial fluid. Chest CT 08/24/18 19:44 CONCLUSION: 1. Moderate size left effusion and small right effusion with numerous calcified pleural plaques. Compressive atelectasis in both lungs. No significant edema. 2. Moderate to severe anasarca. 3. Severe coronary artery calcifications. 4. Healing right lower anterior rib fractures. Stable compression deformity upper thoracic spine since 2017. Mild kyphosis and scoliosis. Lower Extremity Ultrasound 08/25/18 00:00 CONCLUSION: 1. Negative exam. Hip X-Ray 08/27/18 00:00 CONCLUSION: 1. No acute fracture or dislocation. 2. Mild degenerative changes involving the right hip joint. Knee X-Ray 08/27/18 00:00 CONCLUSION: Negative for fracture Significant atherosclerotic vascular disease. Chest X-Ray 08/29/18 23:49 CONCLUSION: 1. Worsening small left pleural effusion with associated left lower lung zone airspace disease. 2. Stable patchy right lower lung zone airspace disease. Procedures: 08/23/18-Reynolds line incision to right subclavian 08/28/18-right above-knee amputation . Assessment and Plan - Disease Oriented Problem List (1) RADHA (acute kidney injury) (2) Urinary tract infection (3) Coronary artery disease (4) Severe peripheral arterial disease (5) Hypertension (6) Dehydration (7) Pressure ulcer, hip (8) Ulcer of heel (9) Depression - Symptom Scale (1) Pain 0-10 Scale: Unable to quantify Comment: Patient has chronic wounds to right lower extremity and right hip. (2) Decreased oral intake 0-10 Scale: Unable to quantify Comment: Patient endorsing nausea, and decreased oral intake. (3) Debility 0-10 Scale: Unable to quantify Comment: Progressive. Pertinent Non-Medical Issues: Psychosocial: Patient is originally from [place]. Patient moved to [place] in 2016. She spent most of a life in [place]. Patient is . She has 2 adult daughters. 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 Spiritual: Patient is Muslim. Direct Care Professional Isac already visited with patient. Legal: Patient Completed healthcare surrogate form 05/22/18 Ethical issues impacting care: None identified at this time. Important Contacts: Healthcare [id number], [place] [phone] Alternate healthcare [id number]-[facility], [place]- [phone] Prognosis: Mrs. Smith is a 73 years old female with a medical history significant for peripheral vascular disease status post left above-knee amputation, coronary artery disease, chronic lower extremity wounds, anemia, CHF, COPD, lupus, hypertension and history of DVT. Patient presented to the ER on 08/13/18 in the company of her family with complaints of weakness, dizziness in the past 36 hours prior to presentation ER. Clinical course complicated with renal insufficiency, MRSA urinary tract infection, chronic wounds to right lower extremity with unreconstructable disease and MRSA in wounds, pain, severe protein calorie malnourishment. Given ongoing multiple comorbidities, patient remains at high risk for further complications, deterioration and decline. Code Status: Full Code Plan: PLAN: Legal decision maker:Patient is able to participate in medical decision making. In the event that she is incapacitated she has designated her daughter Sacha Dale as her healthcare surrogate and her other daughter Zo Plaza is her alternate healthcare surrogate Goals: Goals remain aggressive. Patient is status post right AKA- having complications with bleeding at surgical site requiring transfusion. Briefly discussed with patient`s daughter regarding patient`s trajectory of decline and goals remain aggressive. Patient rescinded DNR on 08/29/18 a full code when she was hypotensive and a Halicat was called. CODE STATUS: Full Code SYMPTOMS: * Pain: Patient has severe PVD and chronic wounds to right foot and right hip- positive for MRSA. Vascular surgeon has recommended amputation. Wound care following. Patient endorsing pain to right AKA. Patient states that she has been having pain through out the night from right stump. Pain managed with morphine sulfate IVP doses and oxycodone/acetaminophen 5/325 doses. Medication appears adequate at this time. Continue to monitor for pain. * Decreased oral intake: Patient complains of nausea all the times, hence decreased oral intake. Patient gets Ensure with every meal. Encouraged patient to request anti-nausea medication prior to meals. Endorsing improved appetite, feeding herself at time of visit. Laboratory workup 08/30 = total protein 4.3 and albumin 1.5. * Nausea: Patient complains of nausea all the times. Zofran available. Currently denying pain. Assess for nausea prior to meals. * Debility: Progressive. Patient has had multiple hospitalizations. She has severe PVD which led to left AKA in April 2018. Patient has been receiving physical therapy at home. Patient has chronic wounds to right lower extremity, which vascular surgeon has recommended amputation. Patient appears debilitated, weak and has lost significant amount of weight and will most likely not participate effectively in physical therapy. Status post R AKA on 08/28/18 Palliative care will continue to follow the patient during hospital course as condition evolves, to assist patient/decision-maker with understanding of their medical conditions, weighing benefits/burdens of treatment options, for clarification of goals of treatment. Additionally will assist with any symptoms of palliative concern Attestation Attestation: To help prompt me to consider important information that might be impacting today's encounter and assessment, information from prior notes written by myself or my colleagues may have been "brought forward" into today's note. My signature on this note, however, is an attestation that I personally performed the exam, history, and/or decision-making noted today, and, unless otherwise indicated, the interactions with patient, family, and staff as well as the review of records all occurred today. I also attest that the listed assessment and stated plan reflect my best clinical judgment today based on the combination of historical information, prior notes, and today's exam/ interactions. When time spent is documented, it refers only to time spent today by the signer, or if indicated, combined time spent today by collaborating physician/nurse practitioner.
[2018-08-30] MEDS ORDERED: Morphine Inj 4 MG/ML Vial IV.PUSH PRN ×2 (17:50→23:58)
[2018-08-30] MEDS: Furosemide 20 MG Tablet PO SCH (18:58)
[2018-08-30] MEDS: Mirtazapine 15 MG Tablet PO SCH (21:29)
[2018-08-31] MEDS: Metoprolol Tartrate 25 MG Tablet PO SCH ×3 (01:29→23:30)
[2018-08-31] MEDS: Acetaminophen/Codeine 300/30 MG Tablet PO PRN ×3 (01:29→23:26)
[2018-08-31] MEDS: Piperacil/Tazo 2.25 GM Premix 50 ML IV.SIG SCH ×4 (02:39→20:44)
[2018-08-31] MEDS: hydrALAZINE 10 MG Tablet PO SCH ×3 (02:40→18:00)
[2018-08-31 06:53] LABS: Baso # (Auto) 0.1 th/mm3 (0.0-0.2); Baso % (Auto) 0.6 % (0.0-2.0); Eos # (Auto) 0.6 th/mm3 (0.0-0.4); Eos % (Auto) 2.9 % (0.0-4.0); Hematocrit 24.5 % (35.0-46.0); Hemoglobin 8.4 gm/dL (11.6-15.3); Lymph # (Auto) 1.7 th/mm3 (1.0-4.8); Lymph % (Auto) 8.7 % (9.0-44.0); Mean Corpuscular HGB Conc 34.1 % (32.0-36.0); Mean Corpuscular Hemoglobin 29.2 pg (27.0-34.0); Mean Corpuscular Volume 85.7 fL (80.0-100.0); Mean Platelet Volume 7.8 fL (7.0-11.0); Mono # (Auto) 1.8 th/mm3 (0.0-0.9); Mono % (Auto) 9.3 % (0.0-8.0); Neut # (Auto) 15.3 th/mm3 (1.8-7.7); Neut % (Auto) 78.5 % (16.0-70.0); Platelet Count 250 th/mm3 (150-450); Red Blood Count 2.86 mil/mm3 (4.00-5.30); Red Cell Distribution Width 16.5 % (11.6-17.2); White Blood Count 19.5 th/mm3 (4.0-11.0)
[2018-08-31 07:49] LABS: Eosinophils 3 % (0-4); Lymphocytes 4 % (9-44); Monocytes 7 % (0-8); Myelocytes 1 % (0-0); Promyelocyte 1 % (0-0)
[2018-08-31 07:50] LABS: Platelet Estimate Normal (Normal); Platelet Morphology Normal (Normal)
[2018-08-31] MEDS ORDERED: Morphine Inj 4 MG/ML Vial IV.PUSH PRN (08:17)
--- NOTE | 2018-08-31 08:25 | P.PN ---
Subjective Interval history: complains of pain right stump examined- right stump dressing soeaked with blood d/w staff nurse- dressing was just changed 20 mins ago now on exam- dressing is already soaked with blood Physical Exam Vital signs: Vital Signs 08/30/18 08:20 08/30/18 10:02 08/30/18 11:40 Temperature 98.4 F 97.3 F L Pulse Rate 87 87 Respiratory Rate 16 16 Blood Pressure 123/60 102/59 L Pulse Oximetry 100 93 L 87 L 08/30/18 12:00 08/30/18 16:00 08/30/18 16:27 Temperature 97.8 F 97.7 F Pulse Rate 88 94 H Respiratory Rate 16 16 16 Blood Pressure 111/66 136/63 Pulse Oximetry 99 100 08/30/18 17:00 08/30/18 20:00 08/31/18 00:00 Temperature 97.9 F 97.9 F Pulse Rate 93 H 96 H Respiratory Rate 16 18 18 Blood Pressure 121/68 107/54 L Pulse Oximetry 94 L 100 08/31/18 00:30 08/31/18 02:36 08/31/18 04:00 Temperature 98.5 F Pulse Rate 94 H Respiratory Rate 18 18 18 Blood Pressure 113/56 L Pulse Oximetry 96 Intake & Output 08/30/18 08/31/18 08/31/18 18:59 06:59 18:59 Intake Total 2109 420 / 420 Output Total Balance 2109 419 / 419 Intake: IV 350 / 350 300 / 300 Zosyn 2.25 GM Premix 50 ML @ 100 / 100 50 / 50 100 mls/hr IV.SIG Q6H [facility] Rx#: [id number] NS Inj 250 ML @ 15 mls/hr IV. 250 / 250 SIG ONCE [facility] Rx#:[id number] Oral 960 / 960 120 / 120 Intake (Blood Product) Amt 800 / 800 Rbc As-3 Leukoreduced Unit 400 / 400 [id number] Rbc As-3 Leukoreduced Unit 400 / 400 [id number] Output: Stool Other: # Voids 2 # Urine Diapers 1 Date of Last Bowel Movement 08/30/18 08/30/18 # Bowel Movements 2 Narrative: HEAD: Atraumatic. Normocephalic. EYES: Pupils equal and round. No scleral icterus. No injection or drainage. ENT: no nasal bleeding Mucous membranes pink and moist. NECK: no nuchal rigidity CARDIOVASCULAR: Regular rate and rhythm. S1-S2 no S3 or S4. RESPIRATORY: No accessory muscle use. Clear to auscultation. Breath sounds equal bilaterally. GASTROINTESTINAL: Abdomen soft, non-tender, nondistended. Hepatic and splenic margins not palpable. MUSCULOSKELETAL: Left [id number] amputation- stump well healed right AKA- incision site soaked with blood, + bleeding NEUROLOGICAL: Awake and alert. No obvious cranial nerve deficits. moves obth thighs freely Normal speech. Results - Labs CBC & Chem 7: 08/31/18 05:45 08/30/18 13:05 Laboratory Results - last 24 hr 08/29/18 08/30/18 08/30/18 11:12 04:17 13:05 WBC 24.2 H RBC 3.98 L Hgb 11.8 D Hct 33.1 L MCV 83.1 MCH 29.5 MCHC 35.6 RDW 16.4 D Plt Count 232 MPV 7.9 Prelim Diff (Auto) Neut % (Auto) 86.9 H Lymph % (Auto) 5.1 L [place] % (Auto) 7.0 Eos % (Auto) 0.5 Baso % (Auto) 0.5 Neut # (Auto) 21.0 H Lymph # (Auto) 1.2 [place] # (Auto) 1.7 H Eos # (Auto) 0.1 Baso # (Auto) 0.1 WBC Differential . Seg Neuts % (Manual) Lymphocytes % (Manual) Monocytes % (Manual) Eosinophils % (Manual) Myelocytes % (Man) Promyelocytes % (Man) Abs Neuts (Manual) Differential Comment Auto diff final Platelet Estimate Platelet Morphology Sodium Potassium Chloride Carbon Dioxide Anion Gap BUN Creatinine Estimated GFR Random Glucose Calcium Prot Corrected Calcium Total Bilirubin AST ALT Alkaline Phosphatase Total Protein Albumin MTS Gel Crossmatch See Detail See Detail 08/30/18 08/31/18 13:05 05:45 WBC 19.5 H RBC 2.86 L Hgb 8.4 L D Hct 24.5 L MCV 85.7 MCH 29.2 MCHC 34.1 RDW 16.5 Plt Count 250 MPV 7.8 Prelim Diff (Auto) Slide review pending Neut % (Auto) 78.5 H Lymph % (Auto) 8.7 L [place] % (Auto) 9.3 H Eos % (Auto) 2.9 Baso % (Auto) 0.6 Neut # (Auto) 15.3 H Lymph # (Auto) 1.7 [place] # (Auto) 1.8 H Eos # (Auto) 0.6 H Baso # (Auto) 0.1 WBC Differential Manual diff final Seg Neuts % (Manual) 84 H Lymphocytes % (Manual) 4 L Monocytes % (Manual) 7 Eosinophils % (Manual) 3 Myelocytes % (Man) 1 H Promyelocytes % (Man) 1 H Abs Neuts (Manual) 16.8 H Differential Comment . Platelet Estimate Normal Platelet Morphology Normal Sodium 141 Potassium 4.5 Chloride 99 Carbon Dioxide 32.0 Anion Gap 10 BUN 63 H Creatinine 2.71 H Estimated GFR 17 L Random Glucose 99 Calcium 7.4 L* Prot Corrected Calcium 9.0 Total Bilirubin 0.7 AST 71 H ALT 22 Alkaline Phosphatase 80 Total Protein 4.3 L D Albumin 1.5 L MTS Gel Crossmatch - Procedures Right AKA August 28, 2018 Assessment and Plan - Assessment (1) RADHA (acute kidney injury) Code(s): N17.9 - Acute kidney failure, unspecified Status: Acute (2) Acute UTI Code(s): N39.0 - Urinary tract infection, site not specified Status: Acute (3) Dehydration Code(s): E86.0 - Dehydration Status: Acute (4) Pressure ulcer, hip Code(s): L89.209 - Pressure ulcer of unspecified hip, unspecified stage Status : Acute (5) Severe peripheral arterial disease Code(s): I73.9 - Peripheral vascular disease, unspecified Status: Acute (6) Ulcer of heel Code(s): L97.409 - Non-pressure chronic ulcer of unspecified heel and midfoot with unspecified severity Status: Acute - Plan 73-year-old female with Peripheral vascular disease MRSA wound infection Right leg gangrene Patient has a history of left AKA. -s/p Right AKA 08/28/18, management per vascular surgery -palliative care ff -Appreciate input from ID and continue vancomycin IV -NM WBC scan negative Acute anemia blood loss - H and H dropped again this am- stump bleeding - dressing soaked with blood again this am - H and H dropped from 11- 10/4- down to 8.4 this am -Transfuse 1 unit packed now . Always have 2 units RBC standby - seen with Vascular surgery at bedside- stump sprayed with thrombin spray to control bleeding- 08/30 - informed- Dr. Serrano- Vascular surgery - taking her to OR this am - NPO - check stat coags Renal insufficiency/stage III chronic kidney disease/dehydration -follow BMP, avoid nephrotoxins. Hypocalcemia/Hypomagnesemia/Hypokalemia/Hyponatremia -Improved. Failure to thrive/protein calorie malnourishment severe S/t gastroparesis. -continue on mirtazapine Tobacco abuse -recommend smoking cessation. Hypoglycemia -encourage nutrition. History of CAD Benign labile hypertension -Currently on Lopressor 50 mg p.o. twice daily . - on Plavix + Elqiusi as OP- held with active bleeding - eventually if stable- restart on Plavix + asa PT- on hold- reconsult when stable post surgery
[2018-08-31 08:28] LABS: INR 1.2 Ratio; Prothrombin Time 12.3 sec (9.8-11.6)
[2018-08-31] MEDS: Furosemide 20 MG Tablet PO SCH ×2 (08:35→17:56)
[2018-08-31] MEDS: amLODIPine 10 MG Tablet PO SCH (08:36)
[2018-08-31] MEDS: Senna/Docusate Sodium 8.6/50 MG Tablet PO SCH ×2 (08:36→23:20)
[2018-08-31] MEDS: Sertraline 50 MG Tablet PO SCH (08:37)
[2018-08-31] MEDS: Hydroxychloroquine 200 MG Tablet PO SCH (08:37)
[2018-08-31] MEDS: Multivitamin/Minerals Therapeutic Tablet PO SCH (08:37)
[2018-08-31 09:04] LABS: Calcium 6.8 mg/dL (8.5-10.1); Carbon Dioxide 30.3 meq/L (21.0-32.0); Potassium 4.1 meq/L (3.5-5.1)
--- NOTE | 2018-08-31 11:01 | P.PNPAL ---
Reason for Visit Reason for visit: a. To assist with evaluation and management of symptoms including: Pain, decreased oral intake, debility b. To assist medical decision maker(s) with: better understanding of current medical conditions; weighing benefits/burdens of medical treatment options; making medical treatment decisions. Subjective Subjective/Interval History: Follow-up medically necessary for symptom management. Patient seen and examined in the room in the presence of her daughter Sacha who is also her healthcare surrogate. Patient is lethargic, oriented to self, place and situation. Patient currently denying pain. Patient states that at least this morning, pain has been under control. Patient continues to bleed from right AKA stump. Hemoglobin continues to trend down despite transfusion yesterday. Laboratory workup today revealing WBC 19.5 , hemoglobin 8.4, hematocrit 24.5, platelet count 250, sodium 142, potassium 4.1 , BUN/creatinine 66/2.84, calcium 6.8 and total protein 4.0. Patient currently having 1 unit PRBC transfused. Bedside nurse RN is preparing patient to go back to the ER to re-evaluate surgical site for cause of bleeding by vascular surgeon. Patient rescinded his DNR status on 08/29/18 when he had a cut was called for hypotension and lethargy. Readdressed CODE STATUS, discussed CPR limitations, benefits and complications. Patient stated that she would like to be resuscitated and intubated if need be. She elected full code. Patient's daughter Sacha supportive of patient's decision-she states "if that is what my mother wants, we will support her". Discussed patient's trajectory of decline with patient`s daughter Sacha and complications she has faced during this hospital course, including patient's multiple ongoing comorbidities. Expressed concern regarding patient`s current medical status and ongoing issues. Provided anticipatory guidance in regards to intubation and probable decisions that family may be faced with if patient cannot be medically extubated. Asked patient's daughter if she has discussed with patient more regarding her thoughts when it comes to tracheostomy and feeding tube. Patient`s daughter states that they have not talked about it. Patient`s daughter expressing frustration regarding how patient`s pain has not been adequately managed by bedside RNs in the past 48 hours. She states that she has already discussed the issue with the nurse center manager and charge nurse. Case discussed with bedside RN. Family/Friend Interactions: See interval note. . Advance Directives Living Will: Never completed Health Care Surrogate: Copy in medical record Durable Power of Tour Conductor: Never completed Advance Directives Date on File: 05/22/18 Health Care Surrogate Name and Number: HCS: Suyapa Goncalves [phone] Alt: Bola Pathak- [phone] Objective Vital Signs: Vital Signs 08/30/18 11:40 08/30/18 12:00 08/30/18 16:00 Temperature 97.3 F L 97.8 F 97.7 F Pulse Rate 87 88 94 H Respiratory Rate 16 16 16 Blood Pressure 102/59 L 111/66 136/63 Pulse Oximetry 87 L 99 100 08/30/18 16:27 08/30/18 17:00 08/30/18 20:00 Temperature 97.9 F Pulse Rate 78 Respiratory Rate 16 16 18 Blood Pressure 121/68 Pulse Oximetry 94 L 08/31/18 00:00 08/31/18 00:30 08/31/18 02:36 Temperature 97.9 F Pulse Rate 96 H Respiratory Rate 18 18 18 Blood Pressure 107/54 L Pulse Oximetry 100 08/31/18 04:00 08/31/18 08:00 08/31/18 09:22 Temperature 98.5 F 98.1 F 98.9 F Pulse Rate 94 H 89 92 H Respiratory Rate 18 16 18 Blood Pressure 113/56 L 128/61 104/55 L Pulse Oximetry 96 94 L 100 08/31/18 09:37 Temperature 98.3 F Pulse Rate 91 H Respiratory Rate 16 Blood Pressure 99/55 L Pulse Oximetry 94 L Intake & Output 08/30/18 08/31/18 08/31/18 18:59 06:59 18:59 Intake Total 2109 470 / 470 50 / 50 Output Total Balance 2109 469 / 469 50 / 50 Intake: IV 350 / 350 350 / 350 50 / 50 Zosyn 2.25 GM Premix 50 ML @ 100 / 100 100 / 100 50 / 50 100 mls/hr IV.SIG Q6H TY Rx#: [id number] NS Inj 250 ML @ 15 mls/hr IV. 250 / 250 SIG ONCE TY Rx#:[id number] Oral 960 / 960 120 / 120 Intake (Blood Product) Amt 800 / 800 0 / 0 Rbc As-3 Leukoreduced Unit 0 / 0 [id number] Rbc As-3 Leukoreduced Unit 400 / 400 [id number] Rbc As-3 Leukoreduced Unit 400 / 400 [id number] Output: Stool Other: # Voids 2 # Urine Diapers 1 Date of Last Bowel Movement 08/30/18 08/30/18 08/30/18 # Bowel Movements 2 Physical Exam: CONSTITUTIONAL/GENERAL: This is an elderly, chronically ill, cachectic patient with obvious muscle wasting, and bony prominences, in no acute distress. TUBES/LINES/DRAINS: PIV, right subclavian Reynolds catheter SKIN: No jaundice, rashes, or lesions. Pale. Ecchymoses on upper extremities. Wounds to right hip. EYES: PERRLA. Fundi not examined. ENT: Hearing grossly normal. Moist oral mucosa. No nasal drainage CARDIOVASCULAR: S1, S2 normal, no gallops, or rubs. No JVD. Peripheral pulses symmetric. RESPIRATORY/CHEST: Symmetric, unlabored respirations. Diminished breath sounds. No wheezing, rhonchi. GASTROINTESTINAL: Abdomen soft, non-tender, nondistended. No guarding. Bowel sounds present. MUSCULOSKELETAL: Extremities without clubbing. Left AKA. s/p right AKA 08/28/18 dressing to right stump saturated with serosanguineous drainage. NEUROLOGICAL: Lethargic, oriented to self, place and situation. Moves all extremities. PSYCHIATRIC: No obvious hallucinations. Calm Diagnostic Tests Laboratory: Laboratory Results - last 72 hr 08/24/18 08/29/18 08/29/18 06:30 00:50 06:05 WBC 14.6 H RBC 2.89 L Hgb 8.4 L D Hct 26.3 L MCV 91.0 MCH 29.3 MCHC 32.2 RDW 17.5 H Plt Count 298 MPV 6.8 L Prelim Diff (Auto) Neut % (Auto) 80.9 H Lymph % (Auto) 8.7 L [place] % (Auto) 6.8 Eos % (Auto) 2.6 Baso % (Auto) 1.0 Neut # (Auto) 11.8 H Lymph # (Auto) 1.3 [place] # (Auto) 1.0 H Eos # (Auto) 0.4 Baso # (Auto) 0.1 WBC Differential . Diff Scan Seg Neuts % (Manual) Lymphocytes % (Manual) Monocytes % (Manual) Eosinophils % (Manual) Myelocytes % (Man) Promyelocytes % (Man) Abs Neuts (Manual) Differential Comment Auto diff final Platelet Estimate Platelet Morphology PT INR APTT Puncture Site Patient Temperature O2 Saturation ABG pH ABG pCO2 ABG pO2 ABG HCO3 ABG O2 Content ABG Base Excess ABG Methemoglobin Hemoglobin Carboxyhemoglobin O2 Delivery Device Liter Flow Critical Value Sodium Potassium Chloride Carbon Dioxide Anion Gap BUN Creatinine Estimated GFR POC Glucose Random Glucose Calcium Prot Corrected Calcium Total Bilirubin AST ALT Alkaline Phosphatase Total Protein Albumin Random Vancomycin 17.9 Blood Type Antibody Screen MTS Gel Crossmatch See Detail 08/29/18 08/29/18 08/29/18 06:05 11:12 23:11 WBC 15.9 H RBC 2.57 L Hgb 7.6 L Hct 23.5 L MCV 91.1 MCH 29.7 MCHC 32.6 RDW 17.2 Plt Count 290 MPV 6.9 L Prelim Diff (Auto) Neut % (Auto) 82.6 H Lymph % (Auto) 7.3 L [place] % (Auto) 5.8 Eos % (Auto) 3.4 Baso % (Auto) 0.9 Neut # (Auto) 13.1 H Lymph # (Auto) 1.2 [place] # (Auto) 0.9 Eos # (Auto) 0.5 H Baso # (Auto) 0.1 WBC Differential . Diff Scan Seg Neuts % (Manual) Lymphocytes % (Manual) Monocytes % (Manual) Eosinophils % (Manual) Myelocytes % (Man) Promyelocytes % (Man) Abs Neuts (Manual) Differential Comment Auto diff final Platelet Estimate Platelet Morphology PT INR APTT Puncture Site Patient Temperature O2 Saturation ABG pH ABG pCO2 ABG pO2 ABG HCO3 ABG O2 Content ABG Base Excess ABG Methemoglobin Hemoglobin Carboxyhemoglobin O2 Delivery Device Liter Flow Critical Value Sodium Potassium Chloride Carbon Dioxide Anion Gap BUN Creatinine Estimated GFR POC Glucose 122 H Random Glucose Calcium Prot Corrected Calcium Total Bilirubin AST ALT Alkaline Phosphatase Total Protein Albumin Random Vancomycin Blood Type AB Negative Antibody Screen Negative MTS Gel Crossmatch See Detail 08/29/18 08/30/18 08/30/18 23:50 00:25 04:17 WBC 25.8 H D RBC 2.71 L Hgb 7.4 L Hct 22.1 L MCV 81.7 D MCH 27.3 MCHC 33.4 RDW 21.2 H D Plt Count 251 MPV 7.3 Prelim Diff (Auto) Slide review pending Neut % (Auto) 92.0 H Lymph % (Auto) 3.5 L [place] % (Auto) 4.3 Eos % (Auto) 0.1 Baso % (Auto) 0.1 Neut # (Auto) 23.7 H Lymph # (Auto) 0.9 L [place] # (Auto) 1.1 H Eos # (Auto) 0.0 Baso # (Auto) 0.0 WBC Differential . Diff Scan Auto diff confirmed Seg Neuts % (Manual) Lymphocytes % (Manual) Monocytes % (Manual) Eosinophils % (Manual) Myelocytes % (Man) Promyelocytes % (Man) Abs Neuts (Manual) Differential Comment . Platelet Estimate Normal Platelet Morphology Normal PT INR APTT Puncture Site Right brachial Patient Temperature 98.6 O2 Saturation 96 ABG pH 7.41 ABG pCO2 48 H ABG pO2 132 H ABG HCO3 30 H ABG O2 Content 11.1 L ABG Base Excess 5.4 H ABG Methemoglobin 1.3 Hemoglobin 8.1 L Carboxyhemoglobin 2.3 O2 Delivery Device Simple mask Liter Flow 6.00 Critical Value No Sodium Potassium Chloride Carbon Dioxide Anion Gap BUN Creatinine Estimated GFR POC Glucose Random Glucose Calcium Prot Corrected Calcium Total Bilirubin AST ALT Alkaline Phosphatase Total Protein Albumin Random Vancomycin Blood Type Antibody Screen MTS Gel Crossmatch See Detail 08/30/18 08/30/18 08/31/18 13:05 13:05 05:45 WBC 24.2 H 19.5 H RBC 3.98 L 2.86 L Hgb 11.8 D 8.4 L D Hct 33.1 L 24.5 L MCV 83.1 85.7 MCH 29.5 29.2 MCHC 35.6 34.1 RDW 16.4 D 16.5 Plt Count 232 250 MPV 7.9 7.8 Prelim Diff (Auto) Slide review pending Neut % (Auto) 86.9 H 78.5 H Lymph % (Auto) 5.1 L 8.7 L [place] % (Auto) 7.0 9.3 H Eos % (Auto) 0.5 2.9 Baso % (Auto) 0.5 0.6 Neut # (Auto) 21.0 H 15.3 H Lymph # (Auto) 1.2 1.7 [place] # (Auto) 1.7 H 1.8 H Eos # (Auto) 0.1 0.6 H Baso # (Auto) 0.1 0.1 WBC Differential . Manual diff final Diff Scan Seg Neuts % (Manual) 84 H Lymphocytes % (Manual) 4 L Monocytes % (Manual) 7 Eosinophils % (Manual) 3 Myelocytes % (Man) 1 H Promyelocytes % (Man) 1 H Abs Neuts (Manual) 16.8 H Differential Comment Auto diff final . Platelet Estimate Normal Platelet Morphology Normal PT INR APTT Puncture Site Patient Temperature O2 Saturation ABG pH ABG pCO2 ABG pO2 ABG HCO3 ABG O2 Content ABG Base Excess ABG Methemoglobin Hemoglobin Carboxyhemoglobin O2 Delivery Device Liter Flow Critical Value Sodium 141 Potassium 4.5 Chloride 99 Carbon Dioxide 32.0 Anion Gap 10 BUN 63 H Creatinine 2.71 H Estimated GFR 17 L POC Glucose Random Glucose 99 Calcium 7.4 L* Prot Corrected Calcium 9.0 Total Bilirubin 0.7 AST 71 H ALT 22 Alkaline Phosphatase 80 Total Protein 4.3 L D Albumin 1.5 L Random Vancomycin Blood Type Antibody Screen MTS Gel Crossmatch 08/31/18 08/31/18 08/31/18 08:09 08:09 08:09 WBC RBC Hgb Hct MCV MCH MCHC RDW Plt Count MPV Prelim Diff (Auto) Neut % (Auto) Lymph % (Auto) [place] % (Auto) Eos % (Auto) Baso % (Auto) Neut # (Auto) Lymph # (Auto) [place] # (Auto) Eos # (Auto) Baso # (Auto) WBC Differential Diff Scan Seg Neuts % (Manual) Lymphocytes % (Manual) Monocytes % (Manual) Eosinophils % (Manual) Myelocytes % (Man) Promyelocytes % (Man) Abs Neuts (Manual) Differential Comment Platelet Estimate Platelet Morphology PT 12.3 H INR 1.2 APTT 32.4 H Puncture Site Patient Temperature O2 Saturation ABG pH ABG pCO2 ABG pO2 ABG HCO3 ABG O2 Content ABG Base Excess ABG Methemoglobin Hemoglobin Carboxyhemoglobin O2 Delivery Device Liter Flow Critical Value Sodium 142 Potassium 4.1 Chloride 102 Carbon Dioxide 30.3 Anion Gap 10 BUN 66 H Creatinine 2.84 H Estimated GFR 16 L POC Glucose Random Glucose 73 L Calcium 6.8 L* Prot Corrected Calcium 8.5 Total Bilirubin AST ALT Alkaline Phosphatase Total Protein 4.0 L Albumin Random Vancomycin Blood Type Antibody Screen MTS Gel Crossmatch 08/31/18 08:34 WBC RBC Hgb Hct MCV MCH MCHC RDW Plt Count MPV Prelim Diff (Auto) Neut % (Auto) Lymph % (Auto) [place] % (Auto) Eos % (Auto) Baso % (Auto) Neut # (Auto) Lymph # (Auto) [place] # (Auto) Eos # (Auto) Baso # (Auto) WBC Differential Diff Scan Seg Neuts % (Manual) Lymphocytes % (Manual) Monocytes % (Manual) Eosinophils % (Manual) Myelocytes % (Man) Promyelocytes % (Man) Abs Neuts (Manual) Differential Comment Platelet Estimate Platelet Morphology PT INR APTT Puncture Site Patient Temperature O2 Saturation ABG pH ABG pCO2 ABG pO2 ABG HCO3 ABG O2 Content ABG Base Excess ABG Methemoglobin Hemoglobin Carboxyhemoglobin O2 Delivery Device Liter Flow Critical Value Sodium Potassium Chloride Carbon Dioxide Anion Gap BUN Creatinine Estimated GFR POC Glucose Random Glucose Calcium Prot Corrected Calcium Total Bilirubin AST ALT Alkaline Phosphatase Total Protein Albumin Random Vancomycin Blood Type Antibody Screen MTS Gel Crossmatch See Detail Result Diagrams: 08/31/18 05:45 08/31/18 08:09 Imaging: Hip CT 08/15/18 00:00 CONCLUSION: 1. Previous internal fixation. 2. No definite evidence for osteomyelitis. 3. Old fractures in the pelvis bilaterally. Femur MRI 08/21/18 07:00 CONCLUSION: 1. There is some thickening and induration of the subcutaneous soft tissues along the posterior aspect of the upper right thigh. 2. No definite loculated fluid collections are demonstrated to suggest a drainable abscess. Reynolds Line Insertion 08/23/18 00:00 CONCLUSION: 1. Uncomplicated Reynolds catheter placement as above. WBC Scan Nuclear Medicine 08/23/18 00:00 CONCLUSION: No focal area of abnormal activity is identified. Abdomen/Pelvis CT 08/24/18 00:00 CONCLUSION: 1. Severe anasarca. Small to moderate bilateral pleural effusions. Trace free fluid in the abdomen. 2. Diffuse mild ileus. 3. Atrophic kidneys with numerous vascular calcifications. Multiple gallstones. Inferior vena cava filter present. Trace pericardial fluid. Chest CT 08/24/18 19:44 CONCLUSION: 1. Moderate size left effusion and small right effusion with numerous calcified pleural plaques. Compressive atelectasis in both lungs. No significant edema. 2. Moderate to severe anasarca. 3. Severe coronary artery calcifications. 4. Healing right lower anterior rib fractures. Stable compression deformity upper thoracic spine since 2017. Mild kyphosis and scoliosis. Lower Extremity Ultrasound 08/25/18 00:00 CONCLUSION: 1. Negative exam. Hip X-Ray 08/27/18 00:00 CONCLUSION: 1. No acute fracture or dislocation. 2. Mild degenerative changes involving the right hip joint. Knee X-Ray 08/27/18 00:00 CONCLUSION: Negative for fracture Significant atherosclerotic vascular disease. Chest X-Ray 08/29/18 23:49 CONCLUSION: 1. Worsening small left pleural effusion with associated left lower lung zone airspace disease. 2. Stable patchy right lower lung zone airspace disease. Procedures: 08/23/18-Reynolds line incision to right subclavian 08/28/18-right above-knee amputation . Assessment and Plan - Disease Oriented Problem List (1) RADHA (acute kidney injury) (2) Urinary tract infection (3) Coronary artery disease (4) Severe peripheral arterial disease (5) Hypertension (6) Dehydration (7) Pressure ulcer, hip (8) Ulcer of heel (9) Depression - Symptom Scale (1) Pain 0-10 Scale: 3 Comment: Patient has chronic wounds to right lower extremity and right hip. (2) Decreased oral intake 0-10 Scale: Unable to quantify Comment: Patient endorsing nausea, and decreased oral intake. (3) Debility 0-10 Scale: Unable to quantify Comment: Progressive. Pertinent Non-Medical Issues: Psychosocial: Patient is originally from [place]. Patient moved to [place] in 2016. She spent most of a life in [place]. Patient is . She has 2 adult daughters. 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 Spiritual: Patient is Adventist. [employer] [place] [employer] [place] already visited with patient. Legal: Patient Completed healthcare surrogate form 05/22/18 Ethical issues impacting care: None identified at this time. Important Contacts: Healthcare [facility], [place] [phone] Alternate healthcare wesfcaqrh-[facility]ps[facility]ur[facility]- [phone] Prognosis: Mrs. Smith is a 73 years old female with a medical history significant for peripheral vascular disease status post left above-knee amputation, coronary artery disease, chronic lower extremity wounds, anemia, CHF, COPD, lupus, hypertension and history of DVT. Patient presented to the ER on 08/13/18 in the company of her family with complaints of weakness, dizziness in the past 36 hours prior to presentation ER. Clinical course complicated with renal insufficiency, MRSA urinary tract infection, chronic wounds to right lower extremity with unreconstructable disease and MRSA in wounds, pain, severe protein calorie malnourishment. Given ongoing multiple comorbidities, patient remains at high risk for further complications, deterioration and decline. Code Status: Full Code Plan: PLAN: Legal decision maker:Patient is able to participate in medical decision making. In the event that she is incapacitated she has designated her daughter Sacha Dale as her healthcare surrogate and her other daughter Zo Plaza is her alternate healthcare surrogate Goals: Goals remain aggressive. Patient is status post right AKA- having complications with bleeding at surgical site requiring transfusion. Scheduled to go back to the operating room 08/31/18. Readdressed CODE STATUS, discussed CPR limitations, benefits and complications. Patient stated that she would like to be resuscitated and intubated if need be. She elected full code. Patient's daughter Sacha supportive of patient's decision-she states "if that is what my mother wants, we will support her". Discussed patient's trajectory of decline with patient`s daughter Sacha and complications she has faced during this hospital course, including patient's multiple ongoing comorbidities. Expressed concern regarding patient`s current medical status and ongoing issues. Provided anticipatory guidance in regards to intubation and probable decisions that family may be faced with if patient cannot be medically extubated. Asked patient's daughter if she has discussed with patient more regarding her thoughts when it comes to tracheostomy and feeding tube. Patient` s daughter states that they have not talked about it. CODE STATUS: Full Code SYMPTOMS: * Pain: Patient has severe PVD and chronic wounds to right foot and right hip- positive for MRSA. Vascular surgeon has recommended amputation. Wound care following. Patient endorsing pain to right AKA. Patient states that she has been having pain through out the night from right stump. Pain managed with morphine sulfate IVP doses, acetaminophen/codeine phosphate. Medication appears adequate at this time. Continue to monitor for pain. * Decreased oral intake: Patient complains of nausea all the times, hence decreased oral intake. Patient gets Ensure with every meal. Encouraged patient to request anti-nausea medication prior to meals. Endorsing improved appetite, feeding herself at time of visit. Laboratory workup 08/31= total protein 4.0 * Nausea: Patient complains of nausea all the times. Zofran available. Currently denying pain. Assess for nausea prior to meals. * Debility: Progressive. Patient has had multiple hospitalizations. She has severe PVD which led to left AKA in April 2018. Patient has been receiving physical therapy at home. Patient has chronic wounds to right lower extremity, which vascular surgeon has recommended amputation. Patient appears debilitated, weak and has lost significant amount of weight and will most likely not participate effectively in physical therapy. Status post R AKA on 08/28/18, having bleeding to surgical site complications. Patient is scheduled to go back to the operating due to bleeding. Palliative care will continue to follow the patient during hospital course as condition evolves, to assist patient/decision-maker with understanding of their medical conditions, weighing benefits/burdens of treatment options, for clarification of goals of treatment. Additionally will assist with any symptoms of palliative concern Attestation Attestation: To help prompt me to consider important information that might be impacting today's encounter and assessment, information from prior notes written by myself or my colleagues may have been "brought forward" into today's note. My signature on this note, however, is an attestation that I personally performed the exam, history, and/or decision-making noted today, and, unless otherwise indicated, the interactions with patient, family, and staff as well as the review of records all occurred today. I also attest that the listed assessment and stated plan reflect my best clinical judgment today based on the combination of historical information, prior notes, and today's exam/ interactions. When time spent is documented, it refers only to time spent today by the signer, or if indicated, combined time spent today by collaborating physician/nurse practitioner.
[2018-08-31] MEDS ORDERED: Electrolytes R/Dextrose 5% Inj 1,000 ML IV.CONT ONE (11:26)
[2018-08-31] MEDS ORDERED: Phenylephrine/NS 1000 MCG/10ML Syringe IV.PUSH ONE (11:26)
[2018-08-31] MEDS ORDERED: Lidocaine PF 1% Inj 5 ML Syringe OTHER ONE (11:26)
--- NOTE | 2018-08-31 13:20 | P.DIET ---
Nutritional Evaluation Type of nutrition evaluation: follow-up Nutrition screening: [facility] [place] Subjective Subjective Comments: Poor po intake continues. Objective - Diagnosis UTI, RADHA, Dehydration - Objective Part of Body Amputated: Left above knee (12%), Right above knee (12%) % IBW: 92 (IBW = 84#) Body Weight Used for Calculations: Upper end of IBW (42 kg) Energy Needs - Lower Range (kCal/kg): 32 Energy Needs - Upper Range (kCal/kg): 36 Lower Limit kCal/kg (kCals): 1,344 Upper Limit kCal/kg (kCals): 1,512 Lower Limit Protein Factor (Grams per Kg): 1.2 Upper Limit Protein Factor (Grams per Kg): 1.6 Lower Protein Needs (Protein): 50 Upper Protein Needs (Protein): 67 Dietitian Reviewed in Medical Record: Current diet, Curent medications, Intake & Output, Labs, Medical history, Wound/DTI Diet Order: NPO for procedure Objective Comments: Dmitriy FERNANDES (05/22/18) 08/28 Dana FERNANDES 08/31 revision of R AKA Feeding - Current PO Supplement Current Supplement: Ensure Enlive Current Supplement Flavor: Vanilla Current Frequency of Supplement: Three times a day Current kCals Provided by Supplement: 350 (per 8 oz) Current Protein Provided by Supplement: 20 (per 8 oz) Assessment Assessment: Pt is npo and having amp revision today. Pt remains at high nutrition risk 2' to dx, poor po intake and low wt with a BMI of 14.2 and recent amputation. Pt will continue to receive Ensure Enlive tid. Pt is able to make food preferences known when ordering. Labs, meds, wts and clinical course reviewed. Pt is receiving MVI/min now and remeron which may help with appetite. Marinol may work better. CBW = 35.2 Recommendations: 1. Diet as ordered with Ensure Enlive tid 2. Consider Marinol 3. Please record % of meal eaten in EMR Feeding Assessment Dietitian to Monitor: Lab values, Supplement acceptance, Intake & Output, Diet tolerance, Weight change, PO Intake, Wound/skin status, Medical course
[2018-08-31] MEDS ORDERED: fentaNYL Citrate Inj 100 MCG/2 ML Ampul ONE (13:45)
--- NOTE | 2018-08-31 13:46 | P.OP ---
Date of procedure: 08/31/18 Procedure: #1 exploration of right AKA wound and control of bleeding. #2 revision of AKA amputation. Anesthesia: GETA Surgeon: Rakesh Quick MD Estimated blood loss (mL): 50 Operation and Findings: Bleeding was noted from the distal femur. Ischemia of the posterior, anterior flap of the AKA stump. I was able to revise the above-knee amputation. The amputation flaps were viable. The femur rina was divided in the process. Procedure The patient was taken to the operating room and laid supine on the OR table. After general trach anesthesia the patient was prepped and draped in the standard sterile fashion. Timeout was called with all members in the OR in agreement. The previously placed nylon stitches were removed. We noted bleeding from the distal AKA stump. We also noted that the anterior, posterior flap of the amputation were ischemic which indicates poor wound healing. We created anterior and posterior flap. The femur was divided and the rina was also divided using a drill. This point hemostasis achieved. We performed a pursestring around the distal femur. The wound was closed in multiple layers approximating the fascia using 2-0 Vicryl sutures followed by 3-0 Vicryl sutures for the skin followed by Monocryl. Sterile dressing was applied. The patient tolerated the procedure was taken back to recovery in stable condition.
[2018-08-31] MEDS: HYDROmorphone PF Inj 2 MG/ML Vial IV.PUSH PRN ×2 (16:34→20:45)
[2018-08-31] MEDS: Mirtazapine 15 MG Tablet PO SCH (20:44)
[2018-09-01] MEDS: HYDROmorphone PF Inj 2 MG/ML Vial IV.PUSH PRN ×5 (03:28→23:28)
[2018-09-01] MEDS: Piperacil/Tazo 2.25 GM Premix 50 ML IV.SIG SCH ×4 (03:28→21:27)
[2018-09-01] MEDS: hydrALAZINE 10 MG Tablet PO SCH ×4 (03:31→19:48)
[2018-09-01 06:11] LABS: Baso # (Auto) 0.2 th/mm3 (0.0-0.2); Baso % (Auto) 0.8 % (0.0-2.0); Eos # (Auto) 0.1 th/mm3 (0.0-0.4); Eos % (Auto) 0.6 % (0.0-4.0); Hematocrit 27.7 % (35.0-46.0); Hemoglobin 9.7 gm/dL (11.6-15.3); Lymph # (Auto) 1.3 th/mm3 (1.0-4.8); Lymph % (Auto) 5.4 % (9.0-44.0); Mean Corpuscular HGB Conc 35.1 % (32.0-36.0); Mean Corpuscular Hemoglobin 29.7 pg (27.0-34.0); Mean Corpuscular Volume 84.5 fL (80.0-100.0); Mean Platelet Volume 7.5 fL (7.0-11.0); Mono # (Auto) 1.8 th/mm3 (0.0-0.9); Mono % (Auto) 7.6 % (0.0-8.0); Neut # (Auto) 19.9 th/mm3 (1.8-7.7); Neut % (Auto) 85.6 % (16.0-70.0); Platelet Count 307 th/mm3 (150-450); Red Blood Count 3.27 mil/mm3 (4.00-5.30); White Blood Count 23.2 th/mm3 (4.0-11.0)
[2018-09-01 06:28] LABS: Calcium 7.3 mg/dL (8.5-10.1); Carbon Dioxide 30.6 meq/L (21.0-32.0); Potassium 3.9 meq/L (3.5-5.1); Vancomycin,Random 18.5 Comment
[2018-09-01 06:41] LABS: Total Protein 5.4 g/dL (6.4-8.2)
[2018-09-01 07:37] LABS: Eosinophils 1 % (0-4); Lymphocytes 3 % (9-44); Metamyelocytes 1 % (0-1); Monocytes 4 % (0-8); Tallied Nucleated RBC 2 (0-0)
[2018-09-01 07:38] LABS: Platelet Estimate Normal (Normal); Platelet Morphology Normal (Normal)
[2018-09-01] MEDS: Multivitamin/Minerals Therapeutic Tablet PO SCH (09:26)
[2018-09-01] MEDS: amLODIPine 10 MG Tablet PO SCH (09:26)
[2018-09-01] MEDS: Sertraline 50 MG Tablet PO SCH (09:26)
[2018-09-01] MEDS: Furosemide 20 MG Tablet PO SCH ×2 (09:26→18:01)
[2018-09-01] MEDS: Hydroxychloroquine 200 MG Tablet PO SCH (09:26)
--- NOTE | 2018-09-01 10:01 | P.PNVS ---
Subjective Post Op Day #: 1 Procedure: R DOM completion Subjective/Hospital Course: looks good sitting in bed eating she says pain poorly controlled but doesn't appear to be in any pain Objective Vital Signs / I&O: Vital Signs 08/31/18 11:19 08/31/18 13:36 08/31/18 13:45 Temperature 98.7 F 97.4 F L Pulse Rate 88 91 H 90 Respiratory Rate 18 19 14 Blood Pressure 133/60 119/58 L 125/58 L Pulse Oximetry 100 99 99 08/31/18 14:00 08/31/18 16:00 08/31/18 17:36 Temperature 98.6 F Pulse Rate 95 H 102 H Respiratory Rate 13 16 Blood Pressure 135/75 145/64 H Pulse Oximetry 94 L 92 L 94 L 08/31/18 18:24 08/31/18 20:00 08/31/18 20:35 Temperature 97.8 F Pulse Rate 101 H 101 H Respiratory Rate 16 18 Blood Pressure 99/56 L Pulse Oximetry 94 L 08/31/18 23:21 09/01/18 00:00 09/01/18 04:00 Temperature 98.6 F 97.5 F L Pulse Rate 101 H 110 H Respiratory Rate 20 18 18 Blood Pressure 119/58 L 143/64 H Pulse Oximetry 93 L 93 L Intake & Output 08/31/18 09/01/18 09/01/18 18:59 06:59 18:59 Intake Total 2303 / 2303 100 / 100 Output Total 50 / 50 Balance 2253 / 2253 100 / 100 Weight 34.9 kg Intake: IV 100 / 100 100 / 100 Zosyn 2.25 GM Premix 50 ML @ 100 / 100 100 / 100 100 mls/hr IV.SIG Q6H [facility] Rx#: [id number] Anesthesia Amount 1574 / 1574 Intake (Blood Product) Amt 629 / 629 Plt Pheresis A Leukoreduced 0 / 0 Unit [id number] Pre-Pooled Cryo Thawed 10units 229 / 229 Unit [id number] Rbc As-3 Leukoreduced Unit 400 / 400 [id number] Output: Estimated Blood Loss 50 / 50 Other: # Incontinent Voids 3 Date of Last Bowel Movement 08/30/18 09/01/18 # Incontinent Bowel Movements 1 Exam: R AKA dressing intact, no saturation Laboratory Results - last 24 hr 08/31/18 08/31/18 08/31/18 08:34 10:45 10:47 WBC RBC Hgb Hct MCV MCH MCHC RDW Plt Count MPV Prelim Diff (Auto) Neut % (Auto) Lymph % (Auto) [facility] % (Auto) Eos % (Auto) Baso % (Auto) Neut # (Auto) Lymph # (Auto) [facility] # (Auto) Eos # (Auto) Baso # (Auto) WBC Differential Seg Neuts % (Manual) Band Neuts % (Manual) Lymphocytes % (Manual) Monocytes % (Manual) Eosinophils % (Manual) Metamyelocytes % (Man) Abs Neuts (Manual) Nucleated RBCs/100 WBC Differential Comment Platelet Estimate Platelet Morphology Sodium Potassium Chloride Carbon Dioxide Anion Gap BUN Creatinine Estimated GFR Random Glucose Calcium Prot Corrected Calcium Total Protein Random Vancomycin MTS Gel Crossmatch See Detail Blood Bank Comment Bld Prod Order Comment 09/01/18 09/01/18 06:00 06:00 WBC 23.2 H RBC 3.27 L Hgb 9.7 L Hct 27.7 L MCV 84.5 MCH 29.7 MCHC 35.1 RDW 17.0 Plt Count 307 MPV 7.5 Prelim Diff (Auto) Slide review pending Neut % (Auto) 85.6 H Lymph % (Auto) 5.[address] [facility] % (Auto) 7.6 Eos % (Auto) 0.6 Baso % (Auto) 0.8 Neut # (Auto) 19.9 H Lymph # (Auto) 1.3 [facility] # (Auto) 1.8 H Eos # (Auto) 0.1 Baso # (Auto) 0.2 WBC Differential Manual diff final Seg Neuts % (Manual) 88 H Band Neuts % (Manual) 3 Lymphocytes % (Manual) 3 L Monocytes % (Manual) 4 Eosinophils % (Manual) 1 Metamyelocytes % (Man) 1 Abs Neuts (Manual) 21.3 H Nucleated RBCs/100 WBC 2 H Differential Comment . Platelet Estimate Normal Platelet Morphology Normal Sodium 142 Potassium 3.9 Chloride 100 Carbon Dioxide 30.6 Anion Gap 11 BUN 61 H Creatinine 2.74 H Estimated GFR 17 L Random Glucose 84 Calcium 7.3 L* Prot Corrected Calcium 8.2 L Total Protein 5.4 L D Random Vancomycin 18.5 MTS Gel Crossmatch Blood Bank Comment Bld Prod Order Comment Assessment and Plan - Plan POD#1 s/p completion AKA 1. Dressing on until POD#4 2. Pain meds 3. PT for at least ROM Discharge Planning: D/C planning to [place] [facility]
--- NOTE | 2018-09-01 12:06 | P.PN ---
Subjective Interval history: awake and alert states some stump pain- "slight" appears comfortable no fever Physical Exam Vital signs: Vital Signs 08/31/18 13:36 08/31/18 13:45 08/31/18 14:00 Temperature 97.4 F L Pulse Rate 91 H 90 95 H Respiratory Rate 19 14 13 Blood Pressure 119/58 L 125/58 L 135/75 Pulse Oximetry 99 99 94 L 08/31/18 16:00 08/31/18 17:36 08/31/18 18:24 Temperature 98.6 F Pulse Rate 102 H Respiratory Rate 16 16 Blood Pressure 145/64 H Pulse Oximetry 92 L 94 L 08/31/18 20:00 08/31/18 20:35 08/31/18 23:21 Temperature 97.8 F Pulse Rate 101 H 101 H Respiratory Rate 18 20 Blood Pressure 99/56 L Pulse Oximetry 94 L 09/01/18 00:00 09/01/18 04:00 09/01/18 08:00 Temperature 98.6 F 97.5 F L 98 F Pulse Rate 101 H 110 H 91 H Respiratory Rate 18 18 20 Blood Pressure 119/58 L 143/64 H 166/82 H Pulse Oximetry 93 L 93 L 98 Intake & Output 08/31/18 09/01/18 09/01/18 18:59 06:59 18:59 Intake Total 2303 / 2303 100 / 100 Output Total 50 / 50 Balance 2253 / 2253 100 / 100 Weight 34.9 kg Intake: IV 100 / 100 100 / 100 Zosyn 2.25 GM Premix 50 ML @ 100 / 100 100 / 100 100 mls/hr IV.SIG Q6H [facility] Rx#: [id number] Anesthesia Amount 1574 / 1574 Intake (Blood Product) Amt 629 / 629 Plt Pheresis A Leukoreduced 0 / 0 Unit [id number] Pre-Pooled Cryo Thawed 10units 229 / 229 Unit [id number] Rbc As-3 Leukoreduced Unit 400 / 400 [id number] Output: Estimated Blood Loss 50 / 50 Other: # Voids 1 # Incontinent Voids 3 Date of Last Bowel Movement 08/30/18 09/01/18 # Bowel Movements 1 # Incontinent Bowel Movements 1 Narrative: a x xo x 3, clear speech EYES: Pupils equal and round. No scleral icterus. No injection or drainage. ENT: no nasal bleeding Mucous membranes pink and moist. NECK: no nuchal rigidity CARDIOVASCULAR: Regular rate and rhythm. RESPIRATORY: No accessory muscle use. Clear to auscultation. Breath sounds equal bilaterally. GASTROINTESTINAL: Abdomen soft, non-tender, nondistended. Hepatic and splenic margins not palpable. MUSCULOSKELETAL: Left [id number] amputation- stump well healed right AKA- post op dressing in place NEUROLOGICAL: Awake and alert. No obvious cranial nerve deficits. moves both thighs freely Normal speech. Results - Labs CBC & Chem 7: 09/01/18 06:00 09/01/18 06:00 Laboratory Results - last 24 hr 08/31/18 08/31/18 09/01/18 10:45 10:47 06:00 WBC RBC Hgb Hct MCV MCH MCHC RDW Plt Count MPV Prelim Diff (Auto) Neut % (Auto) Lymph % (Auto) Page % (Auto) Eos % (Auto) Baso % (Auto) Neut # (Auto) Lymph # (Auto) Page # (Auto) Eos # (Auto) Baso # (Auto) WBC Differential Seg Neuts % (Manual) Band Neuts % (Manual) Lymphocytes % (Manual) Monocytes % (Manual) Eosinophils % (Manual) Metamyelocytes % (Man) Abs Neuts (Manual) Nucleated RBCs/100 WBC Differential Comment Platelet Estimate Platelet Morphology Sodium 142 Potassium 3.9 Chloride 100 Carbon Dioxide 30.6 Anion Gap 11 BUN 61 H Creatinine 2.74 H Estimated GFR 17 L Random Glucose 84 Calcium 7.3 L* Prot Corrected Calcium 8.2 L Total Protein 5.4 L D Random Vancomycin 18.5 Blood Bank Comment Bld Prod Order Comment 09/01/18 06:00 WBC 23.2 H RBC 3.27 L Hgb 9.7 L Hct 27.7 L MCV 84.5 MCH 29.7 MCHC 35.1 RDW 17.0 Plt Count 307 MPV 7.5 Prelim Diff (Auto) Slide review pending Neut % (Auto) 85.6 H Lymph % (Auto) 5.4 L [place] % (Auto) 7.6 Eos % (Auto) 0.6 Baso % (Auto) 0.8 Neut # (Auto) 19.9 H Lymph # (Auto) 1.3 Page # (Auto) 1.8 H Eos # (Auto) 0.1 Baso # (Auto) 0.2 WBC Differential Manual diff final Seg Neuts % (Manual) 88 H Band Neuts % (Manual) 3 Lymphocytes % (Manual) 3 L Monocytes % (Manual) 4 Eosinophils % (Manual) 1 Metamyelocytes % (Man) 1 Abs Neuts (Manual) 21.3 H Nucleated RBCs/100 WBC 2 H Differential Comment . Platelet Estimate Normal Platelet Morphology Normal Sodium Potassium Chloride Carbon Dioxide Anion Gap BUN Creatinine Estimated GFR Random Glucose Calcium Prot Corrected Calcium Total Protein Random Vancomycin Blood Bank Comment Bld Prod Order Comment - Procedures Right AKA August 28, 201808/31#1 exploration of right AKA wound and control of bleeding. #2 revision of AKA amputation. Assessment and Plan - Assessment (1) RADHA (acute kidney injury) Code(s): N17.9 - Acute kidney failure, unspecified Status: Acute (2) Acute UTI Code(s): N39.0 - Urinary tract infection, site not specified Status: Acute (3) Dehydration Code(s): E86.0 - Dehydration Status: Acute (4) Pressure ulcer, hip Code(s): L89.209 - Pressure ulcer of unspecified hip, unspecified stage Status : Acute (5) Severe peripheral arterial disease Code(s): I73.9 - Peripheral vascular disease, unspecified Status: Acute (6) Ulcer of heel Code(s): L97.409 - Non-pressure chronic ulcer of unspecified heel and midfoot with unspecified severity Status: Acute - Plan 73-year-old female with Peripheral vascular disease MRSA wound infection Right leg gangrene Patient has a history of left AKA. -s/p Right AKA 08/28/18, management per vascular surgery -palliative care ff -Appreciate input from ID and continue vancomycin IV -NM WBC scan negative Acute anemia blood loss - from stump bleeding - resolved S/P revision of sump and control of bleeding 08/31 - H and H stable - Dr. Serrano- Vascular surgery - ff Renal insufficiency/stage III chronic kidney disease/dehydration -follow BMP, avoid nephrotoxins. Hypocalcemia/Hypomagnesemia/Hypokalemia/Hyponatremia -Improved. Failure to thrive/protein calorie malnourishment severe S/t gastroparesis. -continue on mirtazapine Tobacco abuse -recommend smoking cessation. Hypoglycemia -encourage nutrition. History of CAD Benign labile hypertension -Currently on Lopressor 50 mg p.o. twice daily . - on Plavix + Elqiusi as OP- held with active bleeding - eventually if stable- restart on Plavix + asa PT- on hold- reconsult when stable post surgery
[2018-09-01] MEDS: Senna/Docusate Sodium 8.6/50 MG Tablet PO SCH ×2 (12:14→21:27)
[2018-09-01] MEDS: Metoprolol Tartrate 25 MG Tablet PO SCH ×2 (12:14→23:29)
[2018-09-01] MEDS: Mirtazapine 15 MG Tablet PO SCH (21:26)
[2018-09-02] MEDS: Piperacil/Tazo 2.25 GM Premix 50 ML IV.SIG SCH ×4 (04:22→21:48)
[2018-09-02] MEDS: hydrALAZINE 10 MG Tablet PO SCH ×3 (04:22→19:39)
[2018-09-02] MEDS: HYDROmorphone PF Inj 2 MG/ML Vial IV.PUSH PRN (04:22)
[2018-09-02] MEDS: Furosemide 20 MG Tablet PO SCH ×2 (08:41→17:34)
[2018-09-02] MEDS: Hydroxychloroquine 200 MG Tablet PO SCH (08:41)
[2018-09-02] MEDS: Multivitamin/Minerals Therapeutic Tablet PO SCH (08:41)
[2018-09-02] MEDS: amLODIPine 10 MG Tablet PO SCH (08:41)
[2018-09-02] MEDS: Sertraline 50 MG Tablet PO SCH (08:41)
[2018-09-02] MEDS: Senna/Docusate Sodium 8.6/50 MG Tablet PO SCH ×2 (08:42→21:50)
--- NOTE | 2018-09-02 08:48 | P.PNVS ---
Subjective Post Op Day #: 2 Procedure: R AKA completion Subjective/Hospital Course: pain better controlled feels well - some hallucinations with pain meds Objective Vital Signs / I&O: Vital Signs 09/01/18 12:00 09/01/18 13:09 09/01/18 14:57 Temperature 97.8 F Pulse Rate 85 82 Respiratory Rate 20 Blood Pressure 142/65 H Pulse Oximetry 100 100 09/01/18 16:00 09/01/18 20:00 09/01/18 20:08 Temperature 97.4 F L 98.1 F Pulse Rate 75 82 Respiratory Rate 20 17 Blood Pressure 121/60 132/63 Pulse Oximetry 100 94 L 96 09/02/18 00:00 09/02/18 04:00 09/02/18 08:00 Temperature 98 F 98 F 98.7 F Pulse Rate 93 H 98 H Respiratory Rate 17 16 21 Blood Pressure 130/64 147/70 H 150/71 H Pulse Oximetry 100 95 95 Intake & Output 09/01/18 09/02/18 09/02/18 18:59 06:59 18:59 Intake Total 527 / 527 340 / 340 240 / 240 Output Total 450 / 450 Balance 527 / 527 -110 / -110 240 / 240 Weight 34.9 kg Intake: IV 200 / 200 100 / 100 Zosyn 2.25 GM Premix 50 ML @ 100 / 100 100 / 100 100 mls/hr IV.SIG Q6H [facility] Rx#: [id number] Vancomycin Inj 500 MG In NS Inj 100 / 100 100 ML @ 200 mls/hr IV.SIG ONCE ONE Rx#:[id number] Oral 327 / 327 240 / 240 240 / 240 Output: Urine 450 / 450 Other: # Voids 1 Date of Last Bowel Movement 09/01/18 # Bowel Movements 1 # Incontinent Bowel Movements 0 Exam: resting comfortably R AKA MANSI wrap in tact Assessment and Plan - Plan POD#2 s/p completion AKA 1. Dressing on until POD#3 or 4 2. Pain meds 3. PT for at least ROM 4. D/C planning - likely ok to d/c Monday; per patient, going home with daughter ; defer to primary service and case management Discharge Planning: likely Monday
[2018-09-02] MEDS: Acetaminophen/Codeine 300/30 MG Tablet PO PRN ×2 (10:31→15:57)
[2018-09-02] MEDS: Metoprolol Tartrate 25 MG Tablet PO SCH ×2 (12:14→22:59)
[2018-09-02] MEDS: Mirtazapine 15 MG Tablet PO SCH (21:49)
[2018-09-03] MEDS: Acetaminophen/Codeine 300/30 MG Tablet PO PRN ×3 (01:21→23:14)
[2018-09-03] MEDS: Piperacil/Tazo 2.25 GM Premix 50 ML IV.SIG SCH ×2 (04:03→10:31)
[2018-09-03] MEDS: hydrALAZINE 10 MG Tablet PO SCH ×3 (04:03→19:09)
[2018-09-03 09:26] LABS: Baso # (Auto) 0.2 th/mm3 (0.0-0.2); Baso % (Auto) 0.9 % (0.0-2.0); Eos # (Auto) 0.2 th/mm3 (0.0-0.4); Eos % (Auto) 0.7 % (0.0-4.0); Hemoglobin 12.5 gm/dL (11.6-15.3); Lymph # (Auto) 0.8 th/mm3 (1.0-4.8); Lymph % (Auto) 3.1 % (9.0-44.0); Mean Corpuscular HGB Conc 33.7 % (32.0-36.0); Mean Corpuscular Hemoglobin 29.9 pg (27.0-34.0); Mean Corpuscular Volume 88.7 fL (80.0-100.0); Mean Platelet Volume 7.8 fL (7.0-11.0); Mono # (Auto) 1.2 th/mm3 (0.0-0.9); Mono % (Auto) 4.6 % (0.0-8.0); Neut # (Auto) 24.1 th/mm3 (1.8-7.7); Neut % (Auto) 90.7 % (16.0-70.0); Platelet Count 431 th/mm3 (150-450); Red Blood Count 4.17 mil/mm3 (4.00-5.30); White Blood Count 26.5 th/mm3 (4.0-11.0)
[2018-09-03 09:42] LABS: Carbon Dioxide 25.1 meq/L (21.0-32.0); Potassium 3.8 meq/L (3.5-5.1)
[2018-09-03 10:21] LABS: Eosinophils 1 % (0-4); Lymphocytes 2 % (9-44); Metamyelocytes 1 % (0-1); Monocytes 2 % (0-8); Myelocytes 1 % (0-0); Toxic Granulation 1+; Toxic Vacuolation Present
[2018-09-03 10:22] LABS: Platelet Morphology Normal (Normal)
[2018-09-03] MEDS: Multivitamin/Minerals Therapeutic Tablet PO SCH (10:31)
[2018-09-03] MEDS: Senna/Docusate Sodium 8.6/50 MG Tablet PO SCH ×2 (10:31→21:10)
[2018-09-03] MEDS: amLODIPine 10 MG Tablet PO SCH (10:31)
[2018-09-03] MEDS: Sertraline 50 MG Tablet PO SCH (10:31)
[2018-09-03] MEDS: Hydroxychloroquine 200 MG Tablet PO SCH (10:31)
[2018-09-03] MEDS: Metoprolol Tartrate 25 MG Tablet PO SCH ×2 (10:32→23:14)
[2018-09-03] MEDS: Furosemide 20 MG Tablet PO SCH ×2 (10:54→19:08)
--- NOTE | 2018-09-03 12:16 | P.PN ---
Subjective Interval history: Follow up Visit peripheral vascular disease, MRSA of the wound status post revision of stump, Diarrhea. Date. Reports she has been having diarrhea. States that she has been tested for C. difficile and it was negative. Daughter at the bedside. States she is doing well aside from the diarrhea. Patient states she wants to go home. States poor appetite, able to take Ensure twice a day. Pain is better controlled. Denies SOB/ dyspnea. Denies chest pain, palpitations, headaches, dizziness. Denies fevers, chills, nausea, vomiting. Denies dysuria. Physical Exam Vital signs: Vital Signs 09/02/18 15:59 09/02/18 16:00 09/02/18 20:00 Temperature 98.7 F 98.0 F Pulse Rate 79 82 Respiratory Rate 19 20 Blood Pressure 125/58 L 120/60 Pulse Oximetry 97 97 97 09/03/18 00:00 09/03/18 04:00 09/03/18 08:00 Temperature 98.2 F 97.9 F 97.6 F Pulse Rate 81 88 96 H Respiratory Rate 20 20 17 Blood Pressure 148/90 H 139/67 140/82 Pulse Oximetry 94 L 93 L 96 09/03/18 12:03 Temperature Pulse Rate Respiratory Rate Blood Pressure Pulse Oximetry 95 Intake & Output 09/02/18 09/03/18 09/03/18 18:59 06:59 18:59 Intake Total 1300 / 1300 730 / 730 50 / 50 Output Total 601 / 601 1100 / 1100 Balance 699 / 699 -370 / -370 50 / 50 Intake: IV 100 / 100 100 / 100 50 / 50 Zosyn 2.25 GM Premix 50 ML @ 100 / 100 100 / 100 50 / 50 100 mls/hr IV.SIG Q6H [facility] Rx#: [id number] Oral 1200 / 1200 630 / 630 Output: Urine 600 / 600 1100 / 1100 Stool 1 / Other: # Voids 1 Date of Last Bowel Movement 09/02/18 09/02/18 09/02/18 # Bowel Movements 1 1 Narrative: GENERAL: This is a well-nourished, well-developed patient, in no apparent distress. SKIN: Warm and dry HEENT: Normocephalic. Pupils equal round and reactive. Nose without bleeding. Airway patent. NECK: Trachea midline. No JVD. Supple. CARDIOVASCULAR: Regular rate and rhythm without murmurs, gallops, or rubs. RESPIRATORY: Clear to auscultation. Breath sounds equal bilaterally. No wheezes , rales, or rhonchi. GASTROINTESTINAL: Abdomen soft, non-tender, nondistended. Bowel Sounds normoactive x4. MUSCULOSKELETAL: Extremities without clubbing, cyanosis. Bilateral stump well- healed. Left [id number] amputation, right AKA. NEUROLOGICAL: Awake and alert. No focal neuro deficit. Normal speech. Results - Labs CBC & Chem 7: 09/03/18 09:08 09/03/18 09:08 Laboratory Results - last 24 hr 09/03/18 09/03/18 09:08 09:08 WBC 26.5 H RBC 4.17 Hgb 12.5 Hct 37.0 MCV 88.7 D MCH 29.9 MCHC 33.7 RDW 17.0 Plt Count 431 D MPV 7.8 Prelim Diff (Auto) Slide review pending Neut % (Auto) 90.7 H Lymph % (Auto) 3.1 L [place] % (Auto) 4.6 Eos % (Auto) 0.7 Baso % (Auto) 0.9 Neut # (Auto) 24.1 H Lymph # (Auto) 0.8 L [place] # (Auto) 1.2 H Eos # (Auto) 0.2 Baso # (Auto) 0.2 WBC Differential Manual diff final Seg Neuts % (Manual) 92 H Band Neuts % (Manual) 1 Lymphocytes % (Manual) 2 L Monocytes % (Manual) 2 Eosinophils % (Manual) 1 Metamyelocytes % (Man) 1 Myelocytes % (Man) 1 H Abs Neuts (Manual) 25.2 H Differential Comment . Toxic Granulation 1+ H Toxic Vacuolation Present H Platelet Estimate High H Platelet Morphology Normal Sodium 138 Potassium 3.8 Chloride 99 Carbon Dioxide 25.1 Anion Gap 14 BUN 58 H Creatinine 2.70 H Estimated GFR 17 L Random Glucose 73 L Calcium 8.0 L - Procedures Right AKA August 28, 201808/31#1 exploration of right AKA wound and control of bleeding. #2 revision of AKA amputation. Assessment and Plan - Assessment (1) RADHA (acute kidney injury) Code(s): N17.9 - Acute kidney failure, unspecified Status: Acute (2) Acute UTI Code(s): N39.0 - Urinary tract infection, site not specified Status: Acute (3) Dehydration Code(s): E86.0 - Dehydration Status: Acute (4) Pressure ulcer, hip Code(s): L89.209 - Pressure ulcer of unspecified hip, unspecified stage Status : Acute (5) Severe peripheral arterial disease Code(s): I73.9 - Peripheral vascular disease, unspecified Status: Acute (6) Ulcer of heel Code(s): L97.409 - Non-pressure chronic ulcer of unspecified heel and midfoot with unspecified severity Status: Acute - Plan 73-year-old female with history of chronic kidney disease status post left above -the-knee amputation and chronic wounds to the right ankle and right hip brought in by family due to weakness and dizziness Peripheral vascular disease MRSA wound infection Right leg gangrene Patient has a history of left AKA. -s/p Right AKA 08/28/18, management per vascular surgery -palliative care ff -Appreciate input from ID, on Zosyn -NM WBC scan negative Leukocytosis -Check Cdiff -ID following Acute anemia blood loss - from stump bleeding - resolved S/P revision of sump and control of bleeding 08/31 -H and H stable -Dr. Serrano, Vascular surgery - ff Renal insufficiency/stage III chronic kidney disease/dehydration -follow BMP, avoid nephrotoxins. Hypocalcemia/Hypomagnesemia/Hypokalemia/Hyponatremia -Improved. Failure to thrive/protein calorie malnourishment severe S/t gastroparesis. -continue on mirtazapine Tobacco abuse -recommend smoking cessation. Hypoglycemia -encourage nutrition. History of CAD Benign labile hypertension -Currently on Lopressor 50 mg p.o. twice daily, Norvasc -on Plavix + Elquis as OP Diarrhea -Check C. difficile. Previously negative -Trend twice daily, Lactinex Poor appetite -Currently on Remeron -Add Megace this has been extensively discussed with patient and daughter. DVT prop Eliquis Code Status: Full Code Discussed Condition With: Patient, daughter, nursing Discharge Planning: Plan to DC home with home health care
--- NOTE | 2018-09-03 13:08 | P.PNADD ---
Addendum to Inpatient Note Additional information: Seen today around 1100 full note to follow
--- NOTE | 2018-09-03 13:17 | P.PNPAL ---
Reason for Visit Reason for visit: a. To assist with evaluation and management of symptoms including: Pain, decreased oral intake, debility b. To assist medical decision maker(s) with: better understanding of current medical conditions; weighing benefits/burdens of medical treatment options; making medical treatment decisions. Subjective Subjective/Interval History: Follow-up medically necessary for symptom management. Patient seen in the presence of her daughter Sacha, Patient denying pain at this time, states it is well managed with current regimen. Patient is on Acetaminophen/ Codeine 300/ 30mg q 4 hrs prn, has required x4 prn doses in the past 24 hrs. She also has Hydromorphone 0.2mg q 3 hrs, patient has been sparingly needing Hydromorphone - last dose administered on 09/02/18 at 0422hrs. Patient appetite decreased, family bringing food from home and patient has Ensure with meals. Bedside RN reporting diarrhea and C.Diff was ordered by infectious disease physician. WBC elevated today-26.5, Hg 12.5, hematocrit 37.0, platelet count 431, BUN/ Creat 58/2.70. Patient`s daughter hopeful that patient will be discharged home with home health care in a couple of days. Goals remain aggressive. Case discussed with bedside RN. Family/Friend Interactions: See interval note. . Advance Directives Living Will: Never completed Health Care Surrogate: Copy in medical record Durable Power of Oncology Rn: Never completed Advance Directives Date on File: 05/22/18 Health Care Surrogate Name and Number: HCS: Suyapa Goncalves [phone] Alt: Bola Pathak- [phone] Objective Vital Signs: Vital Signs 09/02/18 15:59 09/02/18 16:00 09/02/18 20:00 Temperature 98.7 F 98.0 F Pulse Rate 79 82 Respiratory Rate 19 20 Blood Pressure 125/58 L 120/60 Pulse Oximetry 97 97 97 09/03/18 00:00 09/03/18 04:00 09/03/18 08:00 Temperature 98.2 F 97.9 F 97.6 F Pulse Rate 81 88 96 H Respiratory Rate 20 20 17 Blood Pressure 148/90 H 139/67 140/82 Pulse Oximetry 94 L 93 L 96 09/03/18 12:03 Temperature Pulse Rate Respiratory Rate Blood Pressure Pulse Oximetry 95 Intake & Output 09/02/18 09/03/18 09/03/18 18:59 06:59 18:59 Intake Total 1300 / 1300 730 / 730 50 / 50 Output Total 601 / 601 1100 / 1100 Balance 699 / 699 -370 / -370 50 / 50 Intake: IV 100 / 100 100 / 100 50 / 50 Zosyn 2.25 GM Premix 50 ML @ 100 / 100 100 / 100 50 / 50 100 mls/hr IV.SIG Q6H [facility] Rx#: [id number] Oral 1200 / 1200 630 / 630 Output: Urine 600 / 600 1100 / 1100 Stool Other: # Voids 1 Date of Last Bowel Movement 09/02/18 09/02/18 09/02/18 # Bowel Movements 1 1 Physical Exam: CONSTITUTIONAL/GENERAL: This is an elderly, chronically ill, cachectic patient with obvious muscle wasting, and bony prominences, in no acute distress. TUBES/LINES/DRAINS: PIV, right subclavian Reynolds catheter SKIN: No jaundice, rashes, or lesions. Pale. Ecchymoses on upper extremities. Wounds to right hip. EYES: PERRLA. Fundi not examined. ENT: Hearing grossly normal. Moist oral mucosa. No nasal drainage CARDIOVASCULAR: S1, S2 normal, no gallops, or rubs. No JVD. Peripheral pulses symmetric. RESPIRATORY/CHEST: Symmetric, unlabored respirations. Diminished breath sounds. No wheezing, rhonchi. GASTROINTESTINAL: Abdomen soft, non-tender, nondistended. No guarding. Bowel sounds present. MUSCULOSKELETAL: Extremities without clubbing. Left AKA. s/p right AKA NEUROLOGICAL: Alert oriented to self, place and situation. Moves all extremities. PSYCHIATRIC: No obvious hallucinations. Calm Diagnostic Tests Laboratory: Laboratory Results - last 72 hr 09/01/18 09/01/18 09/03/18 06:00 06:00 09:08 WBC 23.2 H 26.5 H RBC 3.27 L 4.17 Hgb 9.7 L 12.5 Hct 27.7 L 37.0 MCV 84.5 88.7 D MCH 29.7 29.9 MCHC 35.1 33.7 RDW 17.0 17.0 Plt Count 307 431 D MPV 7.5 7.8 Prelim Diff (Auto) Slide review pending Slide review pending Neut % (Auto) 85.6 H 90.7 H Lymph % (Auto) 5.4 L 3.1 L [place] % (Auto) 7.6 4.6 Eos % (Auto) 0.6 0.7 Baso % (Auto) 0.8 0.9 Neut # (Auto) 19.9 H 24.1 H Lymph # (Auto) 1.3 0.8 L [place] # (Auto) 1.8 H 1.2 H Eos # (Auto) 0.1 0.2 Baso # (Auto) 0.2 0.2 WBC Differential Manual diff final Manual diff final Seg Neuts % (Manual) 88 H 92 H Band Neuts % (Manual) 3 1 Lymphocytes % (Manual) 3 L 2 L Monocytes % (Manual) 4 2 Eosinophils % (Manual) 1 1 Metamyelocytes % (Man) 1 1 Myelocytes % (Man) 1 H Abs Neuts (Manual) 21.3 H 25.2 H Nucleated RBCs/100 WBC 2 H Differential Comment . . Toxic Granulation 1+ H Toxic Vacuolation Present H Platelet Estimate Normal High H Platelet Morphology Normal Normal Sodium 142 Potassium 3.9 Chloride 100 Carbon Dioxide 30.6 Anion Gap 11 BUN 61 H Creatinine 2.74 H Estimated GFR 17 L Random Glucose 84 Calcium 7.3 L* Prot Corrected Calcium 8.2 L Total Protein 5.4 L D Random Vancomycin 18.5 09/03/18 09:08 WBC RBC Hgb Hct MCV MCH MCHC RDW Plt Count MPV Prelim Diff (Auto) Neut % (Auto) Lymph % (Auto) [place] % (Auto) Eos % (Auto) Baso % (Auto) Neut # (Auto) Lymph # (Auto) [place] # (Auto) Eos # (Auto) Baso # (Auto) WBC Differential Seg Neuts % (Manual) Band Neuts % (Manual) Lymphocytes % (Manual) Monocytes % (Manual) Eosinophils % (Manual) Metamyelocytes % (Man) Myelocytes % (Man) Abs Neuts (Manual) Nucleated RBCs/100 WBC Differential Comment Toxic Granulation Toxic Vacuolation Platelet Estimate Platelet Morphology Sodium 138 Potassium 3.8 Chloride 99 Carbon Dioxide 25.1 Anion Gap 14 BUN 58 H Creatinine 2.70 H Estimated GFR 17 L Random Glucose 73 L Calcium 8.0 L Prot Corrected Calcium Total Protein Random Vancomycin Result Diagrams: 09/03/18 09:08 09/03/18 09:08 Imaging: Hip CT 08/15/18 00:00 CONCLUSION: 1. Previous internal fixation. 2. No definite evidence for osteomyelitis. 3. Old fractures in the pelvis bilaterally. Femur MRI 08/21/18 07:00 CONCLUSION: 1. There is some thickening and induration of the subcutaneous soft tissues along the posterior aspect of the upper right thigh. 2. No definite loculated fluid collections are demonstrated to suggest a drainable abscess. Reynolds Line Insertion 08/23/18 00:00 CONCLUSION: 1. Uncomplicated Reynolds catheter placement as above. WBC Scan Nuclear Medicine 08/23/18 00:00 CONCLUSION: No focal area of abnormal activity is identified. Abdomen/Pelvis CT 08/24/18 00:00 CONCLUSION: 1. Severe anasarca. Small to moderate bilateral pleural effusions. Trace free fluid in the abdomen. 2. Diffuse mild ileus. 3. Atrophic kidneys with numerous vascular calcifications. Multiple gallstones. Inferior vena cava filter present. Trace pericardial fluid. Chest CT 08/24/18 19:44 CONCLUSION: 1. Moderate size left effusion and small right effusion with numerous calcified pleural plaques. Compressive atelectasis in both lungs. No significant edema. 2. Moderate to severe anasarca. 3. Severe coronary artery calcifications. 4. Healing right lower anterior rib fractures. Stable compression deformity upper thoracic spine since 2017. Mild kyphosis and scoliosis. Lower Extremity Ultrasound 08/25/18 00:00 CONCLUSION: 1. Negative exam. Hip X-Ray 08/27/18 00:00 CONCLUSION: 1. No acute fracture or dislocation. 2. Mild degenerative changes involving the right hip joint. Knee X-Ray 08/27/18 00:00 CONCLUSION: Negative for fracture Significant atherosclerotic vascular disease. Chest X-Ray 08/29/18 23:49 CONCLUSION: 1. Worsening small left pleural effusion with associated left lower lung zone airspace disease. 2. Stable patchy right lower lung zone airspace disease. Procedures: 08/23/18-Reynolds line incision to right subclavian 08/28/18-right above-knee amputation 08/31/18-revision of Right AKA . Assessment and Plan - Disease Oriented Problem List (1) RADHA (acute kidney injury) (2) Urinary tract infection (3) Coronary artery disease (4) Severe peripheral arterial disease (5) Hypertension (6) Dehydration (7) Pressure ulcer, hip (8) Ulcer of heel (9) Depression - Symptom Scale (1) Pain 0-10 Scale: 1 Comment: Patient has chronic wounds to right lower extremity and right hip. (2) Decreased oral intake 0-10 Scale: Unable to quantify Comment: Patient endorsing nausea, and decreased oral intake. (3) Debility 0-10 Scale: Unable to quantify Comment: Progressive. Pertinent Non-Medical Issues: Psychosocial: Patient is originally from [place]. Patient moved to [place] in 2016. She spent most of a life in [place]. Patient is . She has 2 adult daughters. 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 Spiritual: Patient is Mandaeism. Historiography Professor visiting Legal: Patient Completed healthcare surrogate form 05/22/18 Ethical issues impacting care: None identified at this time. Important Contacts: Healthcare [id number], [place] [phone] Alternate healthcare [id number]-Wgwbs, [place]- [phone] Prognosis: Mrs. Smith is a 73 years old female with a medical history significant for peripheral vascular disease status post left above-knee amputation, coronary artery disease, chronic lower extremity wounds, anemia, CHF, COPD, lupus, hypertension and history of DVT. Patient presented to the ER on 08/13/18 in the company of her family with complaints of weakness, dizziness in the past 36 hours prior to presentation ER. Clinical course complicated with renal insufficiency, MRSA urinary tract infection, chronic wounds to right lower extremity with unreconstructable disease and MRSA in wounds, pain, severe protein calorie malnourishment. Given ongoing multiple comorbidities, patient remains at high risk for further complications, deterioration and decline. Code Status: Full Code Plan: PLAN: Legal decision maker:Patient is able to participate in medical decision making. In the event that she is incapacitated she has designated her daughter Sacha Dale as her healthcare surrogate and her other daughter Zo Plaza is her alternate healthcare surrogate Goals: Goals remain aggressive. Patient`s daughter hopeful that patient will be discharged home with home health care in a couple of days. Goals remain aggressive. CODE STATUS: Full Code SYMPTOMS: * Pain: Patient has severe PVD and chronic wounds to right foot and right hip- positive for MRSA. Vascular surgeon has recommended amputation. Wound care following. Patient seen in the presence of her daughter Sacha, Patient denying pain at this time, states it is well managed with current regimen. Patient is on Acetaminophen/ Codeine 300/30mg q 4 hrs prn. Continue to monitor for pain. * Decreased oral intake: Patient complains of nausea all the times, hence decreased oral intake. Patient gets Ensure with every meal. Encouraged patient to request anti-nausea medication prior to meals. Endorsing improved appetite, feeding herself at time of visit. Laboratory workup 09/01= 5.4 total protein * Nausea: Patient complains of nausea all the times. Zofran available. Currently denying pain. Assess for nausea prior to meals. * Debility: Progressive. Patient has had multiple hospitalizations. She has severe PVD which led to left AKA in April 2018. Patient has been receiving physical therapy at home. Patient has chronic wounds to right lower extremity, which vascular surgeon has recommended amputation. Patient appears debilitated, weak and has lost significant amount of weight and will most likely not participate effectively in physical therapy. Status post R AKA on 08/28/18, having bleeding to surgical site complications. Revision of R AKA on 08/31/18 Palliative care will continue to follow the patient during hospital course as condition evolves, to assist patient/decision-maker with understanding of their medical conditions, weighing benefits/burdens of treatment options, for clarification of goals of treatment. Additionally will assist with any symptoms of palliative concern Attestation Attestation: To help prompt me to consider important information that might be impacting today's encounter and assessment, information from prior notes written by myself or my colleagues may have been "brought forward" into today's note. My signature on this note, however, is an attestation that I personally performed the exam, history, and/or decision-making noted today, and, unless otherwise indicated, the interactions with patient, family, and staff as well as the review of records all occurred today. I also attest that the listed assessment and stated plan reflect my best clinical judgment today based on the combination of historical information, prior notes, and today's exam/ interactions. When time spent is documented, it refers only to time spent today by the signer, or if indicated, combined time spent today by collaborating physician/nurse practitioner.
--- NOTE | 2018-09-03 14:14 | XR ---
EXAM DATE: 09/03/2018 1:09 PM EDT AGE/SEX: 73 years / Female INDICATIONS: Cough. CLINICAL DATA: This is the patient's subsequent encounter. Patient reports that signs and symptoms h ave been present for 3 weeks and indicates a pain score of 0/10. MEDICAL/SURGICAL HISTORY: . Renal disease. Cardiovascular disease. Deep venous thrombosis. . C oronary artery stent. COMPARISON: Chest x-ray 08/29/2018. FINDINGS: A single AP view of the chest demonstrates no significant change from the prior exam. Small bilateral pleural effusions with bibasilar intra-alveolar infiltrates. Heart is normal in size. A catheter ove rlies the right chest presumably relating to a central line. Bony structures are unremarkable. CONCLUSION: Unchanged exam. Electronically signed by: Angelito Paulino MD 09/03/2018 2:12 PM EDT
--- NOTE | 2018-09-03 14:29 | P.DCO ---
- Physical Therapy Order: Evaluate and treat - Occupational Therapy Order: Evaluate and treat - Home Health Nursing Order: Signs/symptoms of disease process, Medication education-adverse effect, Wound care and dressing changes, Nursing assessment with vital signs, IV medication administration - Case Management Consult Yes - Certification I have seen patient Precious Plaza on 09/03/18. My clinical findings support the need for the requested home health care services because: Limited mobility due to disease progression, Deconditioned with increased weakness, Limited ability to care for self, High risk of falls, Infection with risk of complications I certify that my clinical findings support that this patient is homebound because: Unsteady gait/balance, Non-ambulatory: confined to bed or chair
--- NOTE | 2018-09-03 15:41 | P.PNVS ---
Subjective Subjective/Hospital Course: pain better controlled feels well Objective Vital Signs / I&O: Vital Signs 09/02/18 15:59 09/02/18 16:00 09/02/18 20:00 Temperature 98.7 F 98.0 F Pulse Rate 79 82 Respiratory Rate 19 20 Blood Pressure 125/58 L 120/60 Pulse Oximetry 97 97 97 09/03/18 00:00 09/03/18 04:00 09/03/18 08:00 Temperature 98.2 F 97.9 F 97.6 F Pulse Rate 81 88 96 H Respiratory Rate 20 20 17 Blood Pressure 148/90 H 139/67 140/82 Pulse Oximetry 94 L 93 L 96 09/03/18 12:00 09/03/18 12:03 Temperature 98.4 F Pulse Rate 100 H Respiratory Rate 18 Blood Pressure 121/61 Pulse Oximetry 97 95 Intake & Output 09/02/18 09/03/18 09/03/18 18:59 06:59 18:59 Intake Total 1300 / 1300 730 / 730 50 / 50 Output Total 601 / 601 1100 / 1100 Balance 699 / 699 -370 / -370 50 / 50 Intake: IV 100 / 100 100 / 100 50 / 50 Zosyn 2.25 GM Premix 50 ML @ 100 / 100 100 / 100 50 / 50 100 mls/hr IV.SIG Q6H [facility] Rx#: [id number] Oral 1200 / 1200 630 / 630 Output: Urine 600 / 600 1100 / 1100 Stool 1 / Other: # Voids 1 Date of Last Bowel Movement 09/02/18 09/02/18 09/02/18 # Bowel Movements 1 1 Physical Exam: Right AKA stump CDI Laboratory Results - last 24 hr 09/03/18 09/03/18 09:08 09:08 WBC 26.5 H RBC 4.17 Hgb 12.5 Hct 37.0 MCV 88.7 D MCH 29.9 MCHC 33.7 RDW 17.0 Plt Count 431 D MPV 7.8 Prelim Diff (Auto) Slide review pending Neut % (Auto) 90.7 H Lymph % (Auto) 3.1 L [place] % (Auto) 4.6 Eos % (Auto) 0.7 Baso % (Auto) 0.9 Neut # (Auto) 24.1 H Lymph # (Auto) 0.8 L [place] # (Auto) 1.2 H Eos # (Auto) 0.2 Baso # (Auto) 0.2 WBC Differential Manual diff final Seg Neuts % (Manual) 92 H Band Neuts % (Manual) 1 Lymphocytes % (Manual) 2 L Monocytes % (Manual) 2 Eosinophils % (Manual) 1 Metamyelocytes % (Man) 1 Myelocytes % (Man) 1 H Abs Neuts (Manual) 25.2 H Differential Comment . Toxic Granulation 1+ H Toxic Vacuolation Present H Platelet Estimate High H Platelet Morphology Normal Sodium 138 Potassium 3.8 Chloride 99 Carbon Dioxide 25.1 Anion Gap 14 BUN 58 H Creatinine 2.70 H Estimated GFR 17 L Random Glucose 73 L Calcium 8.0 L Impressions Chest X-Ray 09/03/18 13:09 CONCLUSION: Unchanged exam. Assessment and Plan - Plan POD#2 s/p completion AKA 1. Dressing changed at bed side. Wound healing appropriately 2. Pain meds 3. PT for at least ROM 4. D/C planning - Stable for DC from vascular surgery standpoint Discharge Planning: DC when cleared by all consultants
--- NOTE | 2018-09-03 17:03 | P.PNID ---
Subjective Remarks: sp R AKA pt co diarrhea denies any abdominal pain WBC are going up and are 26 K today Antibiotics: zosyn vancomycin Allergies/Adverse Reactions: Allergies cephalexin Allergy (Severe, Verified 08/13/18 06:34) rash diatrizoate meglumine Allergy (Severe, Verified 08/13/18 06:34) rash fluconazole Allergy (Severe, Verified 08/13/18 06:34) rash gadobenic acid Allergy (Severe, Verified 08/13/18 06:34) rash gadodiamide Allergy (Severe, Verified 08/13/18 06:34) rash gadoteridol Allergy (Severe, Verified 08/13/18 06:34) rash iodixanol Allergy (Severe, Verified 08/13/18 06:34) rash iohexol Allergy (Severe, Verified 08/13/18 06:34) rash pravastatin Allergy (Severe, Verified 08/13/18 06:34) rash erythromycin base Adverse Reaction (Verified 08/13/18 06:34) Urinary Freq (Inc/Dec) Objective Vital Signs 09/02/18 20:00 09/03/18 00:00 09/03/18 04:00 Temperature 98.0 F 98.2 F 97.9 F Pulse Rate 82 81 88 Respiratory Rate 20 20 20 Blood Pressure 120/60 148/90 H 139/67 Pulse Oximetry 97 94 L 93 L 09/03/18 08:00 09/03/18 12:00 09/03/18 12:03 Temperature 97.6 F 98.4 F Pulse Rate 96 H 100 H Respiratory Rate 17 18 Blood Pressure 140/82 121/61 Pulse Oximetry 96 97 95 09/03/18 16:00 Temperature 98.7 F Pulse Rate 81 Respiratory Rate 16 Blood Pressure 113/56 L Pulse Oximetry 96 Intake & Output 09/02/18 09/03/18 09/03/18 18:59 06:59 18:59 Intake Total 1300 / 1300 730 / 730 50 / 50 Output Total 601 / 601 1100 / 1100 Balance 699 / 699 -370 / -370 50 / 50 Intake: IV 100 / 100 100 / 100 50 / 50 Zosyn 2.25 GM Premix 50 ML @ 100 / 100 100 / 100 50 / 50 100 mls/hr IV.SIG Q6H [facility] Rx#: [id number] Oral 1200 / 1200 630 / 630 Output: Urine 600 / 600 1100 / 1100 Stool Other: # Voids 1 Date of Last Bowel Movement 09/02/18 09/02/18 09/03/18 # Bowel Movements 1 1 5 Lab - Hematology Results 09/03/18 09:08 WBC 26.5 H RBC 4.17 Hgb 12.5 Hct 37.0 MCV 88.7 D MCH 29.9 MCHC 33.7 RDW 17.0 Plt Count 431 D MPV 7.8 Prelim Diff (Auto) Slide review pending Neut % (Auto) 90.7 H Lymph % (Auto) 3.1 L [place] % (Auto) 4.6 Eos % (Auto) 0.7 Baso % (Auto) 0.9 Neut # (Auto) 24.1 H Lymph # (Auto) 0.8 L [place] # (Auto) 1.2 H Eos # (Auto) 0.2 Baso # (Auto) 0.2 WBC Differential Manual diff final Seg Neuts % (Manual) 92 H Band Neuts % (Manual) 1 Lymphocytes % (Manual) 2 L Monocytes % (Manual) 2 Eosinophils % (Manual) 1 Metamyelocytes % (Man) 1 Myelocytes % (Man) 1 H Abs Neuts (Manual) 25.2 H Differential Comment . Toxic Granulation 1+ H Toxic Vacuolation Present H Platelet Estimate High H Platelet Morphology Normal Lab - Chemistry Results 09/03/18 09:08 Sodium 138 Potassium 3.8 Chloride 99 Carbon Dioxide 25.1 Anion Gap 14 BUN 58 H Creatinine 2.70 H Estimated GFR 17 L Random Glucose 73 L Calcium 8.0 L Imaging: ITS Impressions Hip CT 08/15/18 00:00 CONCLUSION: 1. Previous internal fixation. 2. No definite evidence for osteomyelitis. 3. Old fractures in the pelvis bilaterally. Femur MRI 08/21/18 07:00 CONCLUSION: 1. There is some thickening and induration of the subcutaneous soft tissues along the posterior aspect of the upper right thigh. 2. No definite loculated fluid collections are demonstrated to suggest a drainable abscess. Reynolds Line Insertion 08/23/18 00:00 CONCLUSION: 1. Uncomplicated Reynolds catheter placement as above. WBC Scan Nuclear Medicine 08/23/18 00:00 CONCLUSION: No focal area of abnormal activity is identified. Abdomen/Pelvis CT 08/24/18 00:00 CONCLUSION: 1. Severe anasarca. Small to moderate bilateral pleural effusions. Trace free fluid in the abdomen. 2. Diffuse mild ileus. 3. Atrophic kidneys with numerous vascular calcifications. Multiple gallstones. Inferior vena cava filter present. Trace pericardial fluid. Chest CT 08/24/18 19:44 CONCLUSION: 1. Moderate size left effusion and small right effusion with numerous calcified pleural plaques. Compressive atelectasis in both lungs. No significant edema. 2. Moderate to severe anasarca. 3. Severe coronary artery calcifications. 4. Healing right lower anterior rib fractures. Stable compression deformity upper thoracic spine since 2017. Mild kyphosis and scoliosis. Lower Extremity Ultrasound 08/25/18 00:00 CONCLUSION: 1. Negative exam. Hip X-Ray 08/27/18 00:00 CONCLUSION: 1. No acute fracture or dislocation. 2. Mild degenerative changes involving the right hip joint. Knee X-Ray 08/27/18 00:00 CONCLUSION: Negative for fracture Significant atherosclerotic vascular disease. Chest X-Ray 09/03/18 13:09 CONCLUSION: Unchanged exam. Physical Exam: GENERAL: NAD frail, cachectic elderly pt SKIN: Warm and dry. no rash HEAD: Atraumatic. Normocephalic. EYES: Pupils equal and round. No scleral icterus. No injection or drainage. ENT: No nasal bleeding or discharge. Mucous membranes pink and moist. CARDIOVASCULAR: Regular rate and rhythm. RESPIRATORY: No accessory muscle use. Clear to auscultation. Breath sounds decreassed bilaterally. Barrel chaped chest GASTROINTESTINAL: Abdomen soft, non-tender, mildly distended. Hepatic and splenic margins not palpable. MUSCULOSKELETAL:B/L AKA R AKA with some ecchymoses, but still well approximateed NEUROLOGICAL: Awake and alert. Lucid. Speech coherent. Moves all extremeties PSYCHIATRIC: calm, cooperative Assessment and Plan - Plan UTI, grew MRSA PVD sp B AKA R hip drainage x 1 yr; resolved probably sinus tract and chronic osteo MRSA clx + - CT wo contrast confirmed intramedullary rina, no s/o osteo or sinus tract ARF on CKD - worsening renal fnx Persistent, worsening leukocytosis - sepsis; clinically improved with zosyn Diarrhea, ileus hem + stool - ? ischemia? C.diff negative R groin US negative Pt has extremely poor prognosis. Palliative care follows Acute anemia - dropped 3 units, Hem + CHF Poor perfusion status dc Zosyn dc vancomycin chk stool for C.diff - further rec's after C.diff results availbale CXR will likley repeat CT A/P w/o contrast danny RN dw primary team dw family @ b/s
--- NOTE | 2018-09-03 17:10 | P.PNADD ---
Addendum to Inpatient Note Reason for Addendum: Additional Documentation (CXR showed unchanged infiltrates b/b)
[2018-09-03] MEDS: Lactobacillus Acidophilus/L. Spores Tablet PO SCH ×2 (18:50→21:11)
[2018-09-03] MEDS: Mirtazapine 15 MG Tablet PO SCH (21:10)
[2018-09-04] MEDS: hydrALAZINE 10 MG Tablet PO SCH ×2 (05:05→12:51)
[2018-09-04 08:48] VITALS: RESP 17
--- NOTE | 2018-09-04 08:53 | CT ---
EXAM DATE: 09/04/2018 8:07 AM EDT AGE/SEX: 73 years / Female INDICATIONS: Diarrhea. CLINICAL DATA: This is the patient's initial encounter. Patient reports that signs and symptoms have been present for 3 days and indicates a pain score of 0/10. MEDICAL/SURGICAL HISTORY: Renal failure, chronic. Peripheral vascular disease. Cardiovascular disease. Lupus. Hypertension. IVC Filter placement. RADIATION DOSE: 4.50 CTDI (mGy) COMPARISON: [facility] [place], CT ABDOMEN & PELVIS W/O CONTRAST, 08/24/2018. . TECHNIQUE: Multiple contiguous axial images were obtained through the abdomen. Images were obtained using multiple row detector helical technique. Using automated exposure control and adjustment of the mA and/or kV according to patient size, radiation dose was kept as low as reasonably achievable to o btain optimal diagnostic quality images. DICOM format image data is available electronically for rev iew and comparison. FINDINGS: Lower Lungs: Bilateral pleural effusions are again noted with consolidation in the posterior lung bas es. The heart size appears mildly enlarged. Pleural calcifications are again noted. Liver: The liver has a homogeneous density without space-occupying lesion. There is no dilation of th e biliary tree. There is a calcified gallstone layering dependently in the gallbladder without change . Spleen: Homogeneous density without enlargement. Pancreas: Multiple pancreatic calcifications are again noted. Kidneys: The kidneys remain small and atrophic in appearance with extensive calcifications again not ed. There is an apparent cyst in the left kidney again noted. Adrenal Glands: Unremarkable. Aorta: The sclerotic changes again noted in the aorta with dilatation dense calcification. There is no focal aneurysm. Inferior vena caval filter is again noted. Bowel/Mesentery: No oral contrast was given limiting the sensitivity exam. The bowel loops are poorl y distinguished secondary to anasarca and a small amount of ascitic fluid. There are multiple loops o f nondilated air-containing small bowel again noted with multiple small air-fluid levels. Abdominal Wall: Intact. Retroperitoneum: No evidence of adenopathy in the retrocrural, para-aortic, or deep pelvic regions. Bladder: Contours are smooth. Reproductive Organs: No abnormal masses or calcifications seen. Inguinal: The inguinal region is unremarkable without evidence of adenopathy. Bony Structures: Osteopenia, degenerative change and scoliosis are present. There are multiple pelvi c fractures. Postoperative changes are noted in the right hip. Diffuse anasarca is again noted with f luid density throughout the subcutaneous fat and mesentery. CONCLUSION: 1. Anasarca again noted without significant change. Bilateral pleural effusions are again noted as w ell as ascites. 2. Nonspecific, nonobstructive bowel gas pattern again noted most characteristic of an ileus. The bayron wel loops are poorly distinguished. 3. Small atrophic kidneys with extensive calcifications. 4. Cholelithiasis again noted. Electronically signed by: Rakesh Staton MD 09/04/2018 8:52 AM EDT
[2018-09-04] MEDS: Hydroxychloroquine 200 MG Tablet PO SCH (09:20)
[2018-09-04] MEDS: Lactobacillus Acidophilus/L. Spores Tablet PO SCH (09:20)
[2018-09-04] MEDS: Multivitamin/Minerals Therapeutic Tablet PO SCH (09:21)
[2018-09-04] MEDS: amLODIPine 10 MG Tablet PO SCH (09:21)
[2018-09-04] MEDS: Sertraline 50 MG Tablet PO SCH (09:23)
[2018-09-04] MEDS: Senna/Docusate Sodium 8.6/50 MG Tablet PO SCH (09:30)
[2018-09-04] MEDS: Furosemide 20 MG Tablet PO SCH (09:31)
[2018-09-04] MEDS: Acetaminophen/Codeine 300/30 MG Tablet PO PRN (09:36)
--- NOTE | 2018-09-04 10:39 | P.DS ---
Date of admission: 08/15/18 09:44 Primary care physician: UNKNOWN Attending physician on discharge: Pito Muñoz Anticipated date of discharge: 09/04/18 Brief History from admission: Is a 73-year-old female with history of chronic kidney disease status post left [id number] amputation and chronic wounds to the right ankle and right hip brought in by family due to weakness and dizziness for the past 36 hours. Patient reports decreased urination. Denies any diarrhea she denies chills. Denies any nausea vomiting but is now having some nausea vomiting in the room. Denies any pain has felt fatigued. States that her right hip wound started draining more the last couple days as well as her right ankle area. Patient HAS seen podiatry previously as well as Dr. Keene Patient was noted to have a urinary tract infection is also having nausea and vomiting We will continue to follow here. We will consult Dr. Keene Patient update on day of discharge: Follow up Visit peripheral vascular disease, MRSA of the wound status post revision of stump, Diarrhea. Patient seen and examined today. Daughter at the bedside. States that after taking Questran she has no bowel movement since last night. Patient states she wants to go home. Pain is better controlled. Denies SOB/ dyspnea. Denies chest pain, palpitations, headaches, dizziness. Denies fevers, chills, nausea, vomiting. Denies dysuria. As per nursing, patient continues to have poor appetite. Refuse some of her medications including Lasix. This is been discussed and explained with patient and also with the daughter. CAT scan of the abdomen and pelvis have been extensively discussed. DS: Diagnosis - Discharge Diagnosis (1) RADHA (acute kidney injury) Status: Acute (2) Acute UTI Status: Acute (3) Dehydration Status: Acute (4) Pressure ulcer, hip Status: Acute (5) Severe peripheral arterial disease Status: Acute (6) Ulcer of heel Status: Acute DS: Medications - Discharge Medications Prescriptions: acetaminophen-codeine 1 tab PO Q4HR PRN #16 tab PRN Reason: Acute Pain acidophilus-sporogenes [Acidophilus Ex Str (L. sporog)] 1 tab PO BID #60 tab cholestyramine (with sugar) 4 gm PO BID 14 Days each furosemide 20 mg PO BID@0900,1800 #60 tab megestrol 40 mg PO BID #60 tab rbwstuia-cuce-DD-calcium-mins [Thera M Plus (ferrous fumarat)] 1 tab PO DAILY # 30 tab sennosides-docusate sodium [Senna Plus] 1 tab PO BID #60 tab DS: Summary Hospital Course: 73-year-old female with history of chronic kidney disease status post left above -the-knee amputation and chronic wounds to the right ankle and right hip brought in by family due to weakness and dizziness. Patient was found to have peripheral vascular disease with multiple leg wounds. Right leg gangrene. MRSA wound infection. Patient has a history of left AKA. She is status post right AKA 08/28/[address] Serrano. She will need to follow-up in their office in the outpatient. Patient was also being followed by infectious disease for leukocytosis, wound infection, suspected pneumonia prior. She was treated with IV Zosyn and vancomycin which has been discontinued. CT of the abdomen and pelvis was done today showing 1. Anasarca again noted without significant change. Bilateral pleural effusions are again noted as well as ascites.2. Nonspecific, nonobstructive bowel gas pattern again noted most characteristic of an ileus. The bowel loops are poorly distinguished. 3. Small atrophic kidneys with extensive calcifications. 4. Cholelithiasis again noted. Patient denies abdominal pain or discomfort. Has been having diarrhea since yesterday. Will discharge home with stool softeners and discussed extensively need for bowel movement and hydration. Postop patient had acute anemia secondary to blood loss. She had stump revision 08/31 secondary to bleeding control. H&H are stable at 12.5/37. Patient has renal insufficiency, CKD stage III continue to avoid nephrotoxins. Patient has poor appetite protein calorie malnutrition. She also has gastroparesis. We will continue Remeron, added Megace. Will also provide patient with Reglan pre-meal dosing. Smoking cessation counseling done. She has history of CAD and benign labile hypertension which she was managed with Lopressor twice daily, Plavix and Eliquis. Previous diarrhea has been checked for C. difficile and has been negative. She can continue to take Lactinex Questran as needed. Patient has met maximal benefits of hospitalization. Clinically stable for discharge with home health care. Follow -up with specialist as noted. - Time Spent with Patient Total time spent providing and/or coordinating discharge services: Greater than 30 minutes - Quality: VTE Deep Vein Thrombosis/Pulmonary Embolism Present on Admission: No Exam Vital signs: Vital Signs 09/03/18 12:00 09/03/18 12:03 09/03/18 16:00 Temperature 98.4 F 98.7 F Pulse Rate 100 H 81 Respiratory Rate 18 16 Blood Pressure 121/61 113/56 L Pulse Oximetry 97 95 96 09/03/18 20:00 09/04/18 00:00 09/04/18 04:00 Temperature 99.0 F 98.7 F 98.5 F Pulse Rate 91 H 92 H 91 H Respiratory Rate 18 18 18 Blood Pressure 119/60 151/68 H 148/67 H Pulse Oximetry 84 L 95 93 L 09/04/18 08:00 09/04/18 10:10 Temperature 98.3 F Pulse Rate 64 Respiratory Rate 17 Blood Pressure 140/70 Pulse Oximetry 88 L 93 L Intake & Output 09/03/18 09/04/18 09/04/18 18:59 06:59 18:59 Intake Total 350 / 350 Output Total 51 / 51 Balance 299 / 299 Intake: IV 50 / 50 Zosyn 2.25 GM Premix 50 ML @ 50 / 50 100 mls/hr IV.SIG Q6H TY Rx#: [id number] Oral 300 / 300 Output: Stool / Estimated Blood Loss 50 / 50 Other: # Voids 5 1 # Incontinent Voids 1 Date of Last Bowel Movement 09/03/18 09/03/18 # Bowel Movements 5 # Incontinent Bowel Movements 0 Narrative: GENERAL: This is a well-nourished, well-developed patient, in no apparent distress. SKIN: Warm and dry HEENT: Normocephalic. Pupils equal round and reactive. Nose without bleeding. Airway patent. NECK: Trachea midline. No JVD. Supple. CARDIOVASCULAR: Regular rate and rhythm without murmurs, gallops, or rubs. RESPIRATORY: Clear to auscultation. Breath sounds equal bilaterally. No wheezes , rales, or rhonchi. GASTROINTESTINAL: Abdomen soft, non-tender, nondistended. Bowel Sounds normoactive x4. MUSCULOSKELETAL: Extremities without clubbing, cyanosis. Bilateral stump well- healed. Left [id number] amputation, right AKA. NEUROLOGICAL: Awake and alert. No focal neuro deficit. Normal speech. Results Procedures completed during hospitalization: Right AKA August 28, 201808/31#1 exploration of right AKA wound and control of bleeding. #2 revision of AKA amputation. Completed studies during hospitalization: Pending at discharge 08/28/18 11:51 Surgical [PTH] Routine Labs on day of discharge: Labs from last 24 hours 09/04/18 09/03/18 06:40 16:00 Stool C.difficile Ag Cancelled Stool C.difficile Toxin Cancelled Stl C.difficile DNA Amp Negative St C. diff Tox Epid 027 Negative Random Vancomycin 17.4 - Impressions ITS Impressions Hip CT 08/15/18 00:00 CONCLUSION: 1. Previous internal fixation. 2. No definite evidence for osteomyelitis. 3. Old fractures in the pelvis bilaterally. Femur MRI 08/21/18 07:00 CONCLUSION: 1. There is some thickening and induration of the subcutaneous soft tissues along the posterior aspect of the upper right thigh. 2. No definite loculated fluid collections are demonstrated to suggest a drainable abscess. Reynolds Line Insertion 08/23/18 00:00 CONCLUSION: 1. Uncomplicated Reynolds catheter placement as above. WBC Scan Nuclear Medicine 08/23/18 00:00 CONCLUSION: No focal area of abnormal activity is identified. Chest CT 08/24/18 19:44 CONCLUSION: 1. Moderate size left effusion and small right effusion with numerous calcified pleural plaques. Compressive atelectasis in both lungs. No significant edema. 2. Moderate to severe anasarca. 3. Severe coronary artery calcifications. 4. Healing right lower anterior rib fractures. Stable compression deformity upper thoracic spine since 2017. Mild kyphosis and scoliosis. Lower Extremity Ultrasound 08/25/18 00:00 CONCLUSION: 1. Negative exam. Hip X-Ray 08/27/18 00:00 CONCLUSION: 1. No acute fracture or dislocation. 2. Mild degenerative changes involving the right hip joint. Knee X-Ray 08/27/18 00:00 CONCLUSION: Negative for fracture Significant atherosclerotic vascular disease. Chest X-Ray 09/03/18 13:09 CONCLUSION: Unchanged exam. Abdomen/Pelvis CT 09/04/18 00:00 CONCLUSION: 1. Anasarca again noted without significant change. Bilateral pleural effusions are again noted as well as ascites. 2. Nonspecific, nonobstructive bowel gas pattern again noted most characteristic of an ileus. The bowel loops are poorly distinguished. 3. Small atrophic kidneys with extensive calcifications. 4. Cholelithiasis again noted. Discharge Plan - Discharge Disposition Patient Disposition: W/Home Health Service - Discharge Condition Condition: Good - Discharge Order Discharge Orders: Discharge Order (Routine); Ordered 09/04/18 Ordered By: Milady Harvey Vascular Surgery Clear for Discharge (Routine); Ordered 08/17/18 Ordered By: Jack Serrano - Discharge Details Anticipated Discharge Date: 09/04/18 - Physicians Team Primary Care Provider: UNKNOWN, Attending Provider: Pito Muñoz Other Providers: Jazmyn Keene MD ; Jack Serrano MD ; [employer], [facility] ; Kajal Felipe MD ; Kyleigh Mora MD ; Lenin Mcgraw MD
--- NOTE | 2018-09-04 11:12 | P.PNPAL ---
Reason for Visit Reason for visit: a. To assist with evaluation and management of symptoms including: Pain, decreased oral intake, debility b. To assist medical decision maker(s) with: better understanding of current medical conditions; weighing benefits/burdens of medical treatment options; making medical treatment decisions. Subjective Subjective/Interval History: Follow-up medically necessary for symptom management. Patient in bed, awake browsing the Internet on her I-Pad, alert oriented to self, place and situation. Patient denies pain at this time. Pain currently managed with Tylenol with Codeine No. 3. Patient is only required x3 prn doses in the past 24 hours. Last dose of hydromorphone administered on 09/02/18 at 0422 hrs. Patient states that she is ready to go home now. Patient's daughter at bedside. Plan is to discharge patient home with home health care. Oral intake is improved, patient consuming approximately 50% of all his meals. Family/Friend Interactions: Patient's daughter at bedside. No concerns from family at this time. . Advance Directives Living Will: Never completed Health Care Surrogate: Copy in medical record Durable Power of Singer Back Tender: Never completed Advance Directives Date on File: 05/22/18 Health Care Surrogate Name and Number: HCS: Florecita Goncalvesrayo [phone] Alt: Bola Pathak- [phone] Objective Vital Signs: Vital Signs 09/03/18 12:00 09/03/18 12:03 09/03/18 16:00 Temperature 98.4 F 98.7 F Pulse Rate 100 H 81 Respiratory Rate 18 16 Blood Pressure 121/61 113/56 L Pulse Oximetry 97 95 96 09/03/18 20:00 09/04/18 00:00 09/04/18 04:00 Temperature 99.0 F 98.7 F 98.5 F Pulse Rate 91 H 92 H 91 H Respiratory Rate 18 18 18 Blood Pressure 119/60 151/68 H 148/67 H Pulse Oximetry 84 L 95 93 L 09/04/18 08:00 09/04/18 10:10 Temperature 98.3 F Pulse Rate 96 H Respiratory Rate 17 Blood Pressure 140/70 Pulse Oximetry 88 L 93 L Intake & Output 09/03/18 09/04/18 09/04/18 18:59 06:59 18:59 Intake Total 350 / 350 Output Total 51 / 51 Balance 299 / 299 Intake: IV 50 / 50 Zosyn 2.25 GM Premix 50 ML @ 50 / 50 100 mls/hr IV.SIG Q6H TY Rx#: [id number] Oral 300 / 300 Output: Stool / Estimated Blood Loss 50 / 50 Other: # Voids 5 1 # Incontinent Voids 1 Date of Last Bowel Movement 09/03/18 09/03/18 # Bowel Movements 5 # Incontinent Bowel Movements 0 Physical Exam: CONSTITUTIONAL/GENERAL: This is an elderly, chronically ill, cachectic patient with obvious muscle wasting, and bony prominences, in no acute distress. TUBES/LINES/DRAINS: PIV, right subclavian Reynolds catheter SKIN: No jaundice, rashes, or lesions. Pale. Ecchymoses on upper extremities and right stump. Wound to right hip. EYES: PERRLA. Fundi not examined. ENT: Hearing grossly normal. Moist oral mucosa. No nasal drainage CARDIOVASCULAR: S1, S2 normal, no gallops, or rubs. No JVD. Peripheral pulses symmetric. RESPIRATORY/CHEST: Symmetric, unlabored respirations. Diminished breath sounds. No wheezing, rhonchi. GASTROINTESTINAL: Abdomen soft, non-tender, nondistended. No guarding. Bowel sounds present. MUSCULOSKELETAL: Extremities without clubbing. Left AKA. s/p right AKA NEUROLOGICAL: Alert oriented to self, place and situation. Moves all extremities. PSYCHIATRIC: No obvious hallucinations. Calm Diagnostic Tests Laboratory: Laboratory Results - last 72 hr 09/03/18 09/03/18 09/03/18 09:08 09:08 16:00 WBC 26.5 H RBC 4.17 Hgb 12.5 Hct 37.0 MCV 88.7 D MCH 29.9 MCHC 33.7 RDW 17.0 Plt Count 431 D MPV 7.8 Prelim Diff (Auto) Slide review pending Neut % (Auto) 90.7 H Lymph % (Auto) 3.1 L [place] % (Auto) 4.6 Eos % (Auto) 0.7 Baso % (Auto) 0.9 Neut # (Auto) 24.1 H Lymph # (Auto) 0.8 L [place] # (Auto) 1.2 H Eos # (Auto) 0.2 Baso # (Auto) 0.2 WBC Differential Manual diff final Seg Neuts % (Manual) 92 H Band Neuts % (Manual) 1 Lymphocytes % (Manual) 2 L Monocytes % (Manual) 2 Eosinophils % (Manual) 1 Metamyelocytes % (Man) 1 Myelocytes % (Man) 1 H Abs Neuts (Manual) 25.2 H Differential Comment . Toxic Granulation 1+ H Toxic Vacuolation Present H Platelet Estimate High H Platelet Morphology Normal Sodium 138 Potassium 3.8 Chloride 99 Carbon Dioxide 25.1 Anion Gap 14 BUN 58 H Creatinine 2.70 H Estimated GFR 17 L Random Glucose 73 L Calcium 8.0 L Stool C.difficile Ag Cancelled Stool C.difficile Toxin Cancelled Stl C.difficile DNA Amp Negative St C. diff Tox Epid 027 Negative Random Vancomycin 09/04/18 06:40 WBC RBC Hgb Hct MCV MCH MCHC RDW Plt Count MPV Prelim Diff (Auto) Neut % (Auto) Lymph % (Auto) [place] % (Auto) Eos % (Auto) Baso % (Auto) Neut # (Auto) Lymph # (Auto) [place] # (Auto) Eos # (Auto) Baso # (Auto) WBC Differential Seg Neuts % (Manual) Band Neuts % (Manual) Lymphocytes % (Manual) Monocytes % (Manual) Eosinophils % (Manual) Metamyelocytes % (Man) Myelocytes % (Man) Abs Neuts (Manual) Differential Comment Toxic Granulation Toxic Vacuolation Platelet Estimate Platelet Morphology Sodium Potassium Chloride Carbon Dioxide Anion Gap BUN Creatinine Estimated GFR Random Glucose Calcium Stool C.difficile Ag Stool C.difficile Toxin Stl C.difficile DNA Amp St C. diff Tox Epid 027 Random Vancomycin 17.4 Result Diagrams: 09/03/18 09:08 09/03/18 09:08 Microbiology: Microbiology 09/03/18 19:25 Aerobic Blood Culture - Preliminary Blood - Peripheral No growth in 1 day Anaerobic Blood Culture - Preliminary No growth in 1 day 09/03/18 19:19 Aerobic Blood Culture - Preliminary Blood - Peripheral No growth in 1 day Anaerobic Blood Culture - Preliminary No growth in 1 day Imaging: Hip CT 08/15/18 00:00 CONCLUSION: 1. Previous internal fixation. 2. No definite evidence for osteomyelitis. 3. Old fractures in the pelvis bilaterally. Femur MRI 08/21/18 07:00 CONCLUSION: 1. There is some thickening and induration of the subcutaneous soft tissues along the posterior aspect of the upper right thigh. 2. No definite loculated fluid collections are demonstrated to suggest a drainable abscess. Reynolds Line Insertion 08/23/18 00:00 CONCLUSION: 1. Uncomplicated Reynolds catheter placement as above. WBC Scan Nuclear Medicine 08/23/18 00:00 CONCLUSION: No focal area of abnormal activity is identified. Chest CT 08/24/18 19:44 CONCLUSION: 1. Moderate size left effusion and small right effusion with numerous calcified pleural plaques. Compressive atelectasis in both lungs. No significant edema. 2. Moderate to severe anasarca. 3. Severe coronary artery calcifications. 4. Healing right lower anterior rib fractures. Stable compression deformity upper thoracic spine since 2017. Mild kyphosis and scoliosis. Lower Extremity Ultrasound 08/25/18 00:00 CONCLUSION: 1. Negative exam. Hip X-Ray 08/27/18 00:00 CONCLUSION: 1. No acute fracture or dislocation. 2. Mild degenerative changes involving the right hip joint. Knee X-Ray 08/27/18 00:00 CONCLUSION: Negative for fracture Significant atherosclerotic vascular disease. Chest X-Ray 09/03/18 13:09 CONCLUSION: Unchanged exam. Abdomen/Pelvis CT 09/04/18 00:00 CONCLUSION: 1. Anasarca again noted without significant change. Bilateral pleural effusions are again noted as well as ascites. 2. Nonspecific, nonobstructive bowel gas pattern again noted most characteristic of an ileus. The bowel loops are poorly distinguished. 3. Small atrophic kidneys with extensive calcifications. 4. Cholelithiasis again noted. Procedures: 08/23/18-Reynolds line incision to right subclavian 08/28/18-right above-knee amputation 08/31/18-revision of Right AKA . Assessment and Plan - Disease Oriented Problem List (1) RADHA (acute kidney injury) (2) Urinary tract infection (3) Coronary artery disease (4) Severe peripheral arterial disease (5) Hypertension (6) Dehydration (7) Pressure ulcer, hip (8) Ulcer of heel (9) Depression - Symptom Scale (1) Pain 0-10 Scale: 0 Comment: Patient has chronic wounds to right lower extremity and right hip. (2) Decreased oral intake 0-10 Scale: Unable to quantify Comment: Patient endorsing nausea, and decreased oral intake. (3) Debility 0-10 Scale: Unable to quantify Comment: Progressive. Pertinent Non-Medical Issues: Psychosocial: Patient is originally from [place]. Patient moved to [place] in 2015. She spent most of a life in [place]. Patient is . She has 2 adult daughters. 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 Spiritual: Patient is Yarsani. 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 Important Contacts: Healthcare clcclwrev-pwuseqsp-[facility], [place] [phone] Alternate healthcare ahowfxplk-ckgrbjdl-Uamm[facility], [place]- [phone] Prognosis: Mrs. Smith is a 73 years old female with a medical history significant for peripheral vascular disease status post left above-knee amputation, coronary artery disease, chronic lower extremity wounds, anemia, CHF, COPD, lupus, hypertension and history of DVT. Patient presented to the ER on 08/13/18 in the company of her family with complaints of weakness, dizziness in the past 36 hours prior to presentation ER. Clinical course complicated with renal insufficiency, MRSA urinary tract infection, chronic wounds to right lower extremity with unreconstructable disease and MRSA in wounds, pain, severe protein calorie malnourishment. Given ongoing multiple comorbidities, patient remains at high risk for further complications, deterioration and decline. Code Status: Full Code Plan: PLAN: Legal decision maker:Patient is able to participate in medical decision making. In the event that she is incapacitated she has designated her daughter Sacha Dale as her healthcare surrogate and her other daughter Zo Plaza is her alternate healthcare surrogate Goals: Goals remain aggressive. Plan is to discharge patient home today 07/2018 with home health care. CODE STATUS: Full Code SYMPTOMS: * Pain: Patient has severe PVD and chronic wounds to right foot and right hip- positive for MRSA. Vascular surgeon has recommended amputation. Wound care following. Patient denying pain at this time, states it is well managed with current regimen. Patient is on Acetaminophen/ Codeine 300/30mg q 4 hrs prn. No hydromorphone use since 09/02/18. * Decreased oral intake: Patient complains of nausea all the times, hence decreased oral intake. Patient gets Ensure with every meal. Encouraged patient to request anti-nausea medication prior to meals. Endorsing improved appetite, consuming approximately 50% of her meals. * Nausea: Patient complains of nausea all the times. Zofran available. Currently denying pain. Assess for nausea prior to meals. * Debility: Progressive. Patient has had multiple hospitalizations. She has severe PVD which led to left AKA in April 2018. Patient has been receiving physical therapy at home. Patient has chronic wounds to right lower extremity, which vascular surgeon has recommended amputation. Patient appears debilitated, weak and has lost significant amount of weight and will most likely not participate effectively in physical therapy. Status post R AKA on 08/28/18, having bleeding to surgical site complications. Revision of R AKA on 08/31/18. Palliative care will continue to follow the patient during hospital course as condition evolves, to assist patient/decision-maker with understanding of their medical conditions, weighing benefits/burdens of treatment options, for clarification of goals of treatment. Additionally will assist with any symptoms of palliative concern Attestation Attestation: To help prompt me to consider important information that might be impacting today's encounter and assessment, information from prior notes written by myself or my colleagues may have been "brought forward" into today's note. My signature on this note, however, is an attestation that I personally performed the exam, history, and/or decision-making noted today, and, unless otherwise indicated, the interactions with patient, family, and staff as well as the review of records all occurred today. I also attest that the listed assessment and stated plan reflect my best clinical judgment today based on the combination of historical information, prior notes, and today's exam/ interactions. When time spent is documented, it refers only to time spent today by the signer, or if indicated, combined time spent today by collaborating physician/nurse practitioner.
[2018-09-04] MEDS ORDERED: Metoclopramide 10 MG Tablet PO SCH (12:00)
[2018-09-04 12:29] VITALS: BP 135/62; PULSE 101; TEMP 98.2; O2SAT 91
[2018-09-04] MEDS: Metoprolol Tartrate 25 MG Tablet PO SCH (12:52)
--- NOTE | 2018-09-04 15:29 | IR ---
EXAM DATE: 09/04/2018 12:00 AM EDT AGE/SEX: 73 years / Female INDICATIONS: Patient in need of Reynolds catheter removal. CLINICAL DATA: This is the patient's subsequent encounter. Patient reports that signs and symptoms h ave been present for 3 weeks and indicates a pain score of 0/10. MEDICAL/SURGICAL HISTORY: Hypertension. Peripheral vascular disease. Anemia. CAD, Failure to thrive, CKD III, CHF, COPD, DVT, MRSA Left lower extremity amputation, Heart stent, COMPARISON: No prior exams available for comparison. FLUORO TIME (min): 0.0 IMAGE SERIES: 0 ACCESS SITE: . . PROCEDURE: 1. PermaCath removal. The risks, benefits and alternatives to the procedure were explained and verbal and written consent w as obtained. The site was prepped in sterile fashion. Full sterile technique was used, including ca p, mask, sterile gloves and gown and a large sterile sheet. Hand hygiene and 2% chlorhexidine and/or betadine/alcohol prep was utilized per protocol for cutaneous antisepsis. The skin and subcutaneous tissues were infiltrated with local anesthetic solution. The tract was anesthetized with 1% Lidocaine using. The Permcath was dissected from the subcutaneous tissues and easily removed in one piece. Manual pressure was applied to the venotomy site until hem ostasis was obtained. Sterile dressing was applied. The patient tolerated the procedure well and there were no complications. CONCLUSION: 1. Uncomplicated Permcath removal. Electronically signed by: Noah Douglass MD 09/04/2018 3:28 PM EDT
== END 2018-09-04 16:12 | disposition home health service (06) ==
LOC: NEPC 06:18 → INTOOBSV 09:58 → NEDA 09:58 → N05 11:50
PROVIDERS: ADMIT Internal Medicine; ATTEND Internal Medicine